=== PATIENT | male | born 1950 | race Caucasian/White ===

== ENCOUNTER → 2021-06-07 | Outpatient (CLI) | payer MEDICARE, OTHER, SELFPAY | END | disposition home or self-care (01) | LOC: PSN 09:12 | PROVIDERS: PCP Family Medicine; Referring Provider Family Medicine; Visit Provider Family Medicine | DX: R09.89 Other specified symptoms and signs involving the circulatory and respiratory systems (principal) | CPT/HCPCS: 93225; 93226 ==

== ENCOUNTER → 2021-06-30 | Outpatient (CLI) | payer MEDICARE, OTHER, SELFPAY ==
--- NOTE | 2021-06-30 10:45 | ECHOD_ITS ---
Reason For Study: ARRYTHMIA Procedure This was a 2D Doppler, Color Flow transthoracic echocardiogram. Exam performed in department. Left Ventricle Normal LV size. Left ventricular systolic function is normal. The estimated ejection fraction is 60 %. Stage 1 diastolic dysfunction. No regional wall motion abnormalities noted. Right Ventricle Normal RV size. Normal systolic function. Atria The left atrium is moderately enlarged. Normal right atrium. Mitral Valve Normal mitral valve. Tricuspid Valve Normal tricuspid valve. Mild (1+) tricuspid valve insufficiency. Pulmonary artery systolic pressure is 38 mmHg. Aortic Valve Normal aortic valve. Trisinus/trileaflet aortic valve. Pulmonic Valve Normal pulmonic valve. Great Vessels Normal aortic root. Pericardium/Pleural No pericardial effusion. MMode/2D Measurements & Calculations LVIDd: 5.1 cm IVSd: 0.91 cm Ao root diam: 3.5 cm LVIDs: 2.4 cm LVPWd: 1.0 cm RVDd: 4.0 cm FS: 52.8 % LAV(MOD-bp): 73.4 ml LVAd ap4: 33.5 cm2 SV(MOD-sp4): 76.6 ml LAV(MOD-bp) Indexed: 36.0 ml/m2 LVLd ap4: 8.3 cm LAV(MOD-sp2): 71.5 ml EDV(MOD-sp4): 111.6 ml LAV(MOD-sp4): 81.0 ml EDV(sp4-el): 114.6 ml LVAs ap4: 15.3 cm2 LVLs ap4: 5.5 cm ESV(MOD-sp4): 35.0 ml ESV(sp4-el): 36.0 ml EF(MOD-sp4): 68.6 % EF(sp4-el): 68.6 % SV(sp4-el): 78.5 ml LA A4 area: 24.2 cm2 RA A4 area: 17.5 cm2 Doppler Measurements & Calculations MV E max roger: 57.7 cm/sec Lat Peak E' Roger: 6.5 cm/sec Med Peak E' Roger: 6.5 cm/sec MV A max roger: 88.1 cm/sec E/E' lat: 8.9 E/E' med: 8.9 MV E/A: 0.65 Ao V2 max: 118.4 cm/sec LV V1 max: 80.1 cm/sec PA V2 max: 89.6 cm/sec Ao max P.6 mmHg LV V1 max P.6 mmHg TR max roger: 293.6 cm/sec TR max P.5 mmHg ECHO/Echo Complete Interpretation Summary Normal LV size. Left ventricular systolic function is normal. The estimated ejection fraction is 60 %. Normal RV size. Pulmonary artery systolic pressure is 38 mmHg. Stage 1 diastolic dysfunction. The left atrium is moderately enlarged. Ordering Physician: Arnaud Morrow Referring Physician: Arnaud Morrow Performed By: Jenise Reyes RCS
== END | disposition home or self-care (01) ==
LOC: CVS 10:43
PROVIDERS: PCP Family Medicine; Referring Provider Internal Medicine Cardiovascular Disease; Visit Provider Internal Medicine Cardiovascular Disease
DX: I49.1 Atrial premature depolarization (principal)
CPT/HCPCS: 93306

== ENCOUNTER → 2023-01-18 | Outpatient (CLI) | payer MEDICARE, OTHER, SELFPAY ==
[2023-01-18 12:41] LABS: Absolute Lymphocyte Count 1.63 X10^3/uL (0.83-4.51); Absolute Neutrophil Count 5.3 X10^3/uL (2.0-7.7); Basophil# 0.06 X10^3/uL; Basophil% 0.8 % (0-1); Eosinophil# 0.22 X10^3/uL; Eosinophils% 2.8 % (0-5); Hematocrit 41.1 % (40-54); Hemoglobin 13.3 g/dL (13.0-16.5); Lymphocyte # 1.63 X10^3/ul (0.83-4.51); Mean Corp Hgb Conc 32.4 g/dL (32-36); Mean Corpuscular Hgb 29.5 pg (27.0-32.0); Mean Corpuscular Volume 91.1 fL (80-94); Mean Platelet Vol. 10.5 fl (6.2-12.0); Monocyte# 0.52 X10^3/uL; Monocyte% 6.7 % (0-10); NRBC Flagged by Analyzer 0 % (0-5); Neutrophil # 5.33 X10^3/uL (2.7-7.7); Neutrophil % 68.4 % (47-70); Platelet Count 236 K/mm3 (150-450); RBC Distribution Width CV 12.6 % (11.6-14.6); RBC Distribution Width SD 41.7 fl (35.1-43.9); Red Blood Count 4.51 M/mm3 (4.6-6.2); White Blood Count 7.8 K/mm3 (4.4-11.0)
[2023-01-18 13:21] LABS: AST(SGOT) 20 U/L (15-37); Alanine Aminotransfer ALT/SGPT 25 U/L (16-61); Albumin, Serum 3.8 g/dL (3.2-5.0); Alkaline Phosphatase 78 U/L (45-117); Anion Gap 4 (5-15); BUN 10 mg/dL (7-18); BUN/Creat Ratio 13.4 RATIO (10-20); Calcium,Total 8.9 mg/dL (8.5-10.1); Chloride 105 mmol/L (98-107); Cholesterol 106 mg/dL (200); Creatinine, Serum 0.75 mg/dL (0.70-1.30); EST Glomerular Filtration Rate 109 mL/min (>60); Est Glom Filt Rate - Afr Amer 132 mL/min (>60); Glucose 98 mg/dL (74-106); High Density Lipoprotein 62 mg/dL; PSA,Total - Annual Screen 1.73 ng/mL (0.00-4.00); Potassium 4.8 mmol/L (3.5-5.1); Protein, Total 7.8 g/dL (6.4-8.2); Sodium Level 138 mmol/L (136-145); Triglycerides 54 mg/dL; Very Low Density Lipoprotein 11 mg/dL (5-40)
== END | disposition home or self-care (01) ==
LOC: BFHLAB 09:44
PROVIDERS: PCP Family Medicine; Visit Provider Family Medicine
DX: I48.91 Unspecified atrial fibrillation (principal); I10 Essential (primary) hypertension; E78.5 Hyperlipidemia, unspecified; Z12.5 Encounter for screening for malignant neoplasm of prostate; Z51.81 Encounter for therapeutic drug level monitoring
CPT/HCPCS: 36415; 80053; 80061; 84153; 85025; G0103

== ENCOUNTER → 2024-01-20 | Outpatient (CLI) | payer MEDICARE, OTHER, SELFPAY ==
[2024-01-20 12:25] LABS: Absolute Lymphocyte Count 1.48 X10^3/uL (0.83-4.51); Absolute Neutrophil Count 2.6 X10^3/uL (2.0-7.7); Basophil# 0.07 X10^3/uL; Basophil% 1.5 % (0-1); Eosinophil# 0.14 X10^3/uL; Hematocrit 42.5 % (40-54); Hemoglobin 13.8 g/dL (13.0-16.5); Lymphocyte # 1.48 X10^3/ul (0.83-4.51); Lymphocyte % 31.8 % (19-41); Mean Corp Hgb Conc 32.5 g/dL (32-36); Mean Corpuscular Hgb 29.9 pg (27.0-32.0); Monocyte# 0.41 X10^3/uL; Monocyte% 8.8 % (0-10); NRBC Flagged by Analyzer 0 % (0-5); Neutrophil # 2.55 X10^3/uL (2.7-7.7); Neutrophil % 54.7 % (47-70); Platelet Count 229 K/mm3 (150-450); RBC Distribution Width CV 12.1 % (11.6-14.6); RBC Distribution Width SD 41.1 fl (35.1-43.9); Red Blood Count 4.62 M/mm3 (4.6-6.2); White Blood Count 4.7 K/mm3 (4.4-11.0)
[2024-01-20 12:51] LABS: AST(SGOT) 19 U/L (15-37); Alanine Aminotransfer ALT/SGPT 23 U/L (16-61); Albumin, Serum 3.9 g/dL (3.2-5.0); Alkaline Phosphatase 79 U/L (45-117); Anion Gap 4 (5-15); BUN 13 mg/dL (7-18); BUN/Creat Ratio 16.4 RATIO (10-20); Calcium,Total 9.6 mg/dL (8.5-10.1); Chloride 104 mmol/L (98-107); Cholesterol 115 mg/dL (200); Creatinine, Serum 0.79 mg/dL (0.70-1.30); EST Glomerular Filtration Rate 101 mL/min (>60); Est Glom Filt Rate - Afr Amer 123 mL/min (>60); Globulin 3.8 g/dL (2.2-4.2); Glucose 119 mg/dL (74-106); High Density Lipoprotein 62 mg/dL; PSA,Total - Annual Screen 1.42 ng/mL (0.00-4.00); Potassium 3.9 mmol/L (3.5-5.1); Protein, Total 7.7 g/dL (6.4-8.2); Sodium Level 139 mmol/L (136-145); Triglycerides 48 mg/dL; Very Low Density Lipoprotein 10 mg/dL (5-40)
== END | disposition home or self-care (01) ==
PROVIDERS: PCP Family Medicine; Referring Provider Family Medicine; Visit Provider Family Medicine
DX: Z12.5 Encounter for screening for malignant neoplasm of prostate (principal); I48.91 Unspecified atrial fibrillation; I10 Essential (primary) hypertension; E78.5 Hyperlipidemia, unspecified
CPT/HCPCS: 36415; 80053; 80061; 84153; 85025; G0103

== ENCOUNTER 2024-09-19 12:26 | Emergency (ER) | payer MEDICARE, OTHER, SELFPAY ==
[2024-09-19 12:27] VITALS: BP 129/79; PULSE 97; RESP 13; TEMP 36.9; O2SAT 90; BMI 24.4
[2024-09-19 12:35] VITALS: O2SAT 92; O2SAT 93
--- NOTE | 2024-09-19 12:39 | EKG12_ITS ---
Test Reason : CP Blood Pressure : */* mmHG Vent. Rate : 92 BPM Atrial Rate : 92 BPM P-R Int : 132 ms QRS Dur : 80 ms QT Int : 358 ms P-R-T Axes : 11 0 39 degrees QTcB Int : 442 ms Sinus rhythm with Premature atrial complexes Possible Left atrial enlargement Cannot rule out Inferior infarct , age undetermined Abnormal ECG Confirmed by ARYA HURLEY, DIGNA ([id number]), food editor KIRSTEN CHIN ([id number]) on 09/21/2024 1:11:03 PM Referred By: Confirmed By: DIGNA KOENIG MD
--- NOTE | 2024-09-19 12:39 | RAD_ITS ---
PROCEDURE: CHEST 1 VIEW (PORTABLE) 09/19/2024 REASON FOR EXAM: CHEST PAIN TECHNIQUE: Frontal view of the chest. COMPARISON: None FINDINGS: Hardware: EKG leads Heart: Top-normal size. Aorta is mildly tortuous. Lungs: Platelike atelectasis right lung base. Atelectasis or airspace disease in the lingula and left lower lobe. Scant pleural fluid on the left. Bones: Degenerative changes are identified within the thoracic spine. RAD/Chest 1 View (Portable) IMPRESSION: Atelectasis or airspace disease left lower lobe. Consider pneumonia in the enzo ropriate scenario. Reading Location: [id number]
--- NOTE | 2024-09-19 12:47 | ED.VIS.CHEST ---
HPI History of Present Illness Chief Complaint: Chest Pain Informant: patient Onset/Context/Timing Onset: Today Activity at onset: sudden Timing: Continuous Quality: Positive for Sharp Location: Left Chest Current Severity: Moderate Maximum Severity: Severe Worsened By: Breathing Relieved By: Nothing Associated Symptoms: Positive for Dyspnea; Negative for Nausea, Vomiting, Diaphoresis, Cough, Fever, Lightheadedness, Acid Reflux or Palpitations Narrative Narrative: 74-year-old male with past medical history of A-fib, hypertension and Viveros's esophagitis. Typically is on Eliquis it has been stopped since Saturday due to an upcoming endoscopy. No prior history of DVT or PE. No prior ME, coronary disease or stents. States he was at home he was at rest about hour ago he had sudden onset of left-sided chest pain. Associated shortness of breath. No diaphoresis no nausea. No leg pain or swelling. No hemoptysis. No recent travel, surgery or immobilization. No having the pain currently. Was brought in by squad. He was given aspirin and nitro and nitro would not give him any significant relief. Prior Similar Symptoms: No Recent Illness/Hospitalization: No CVD Risk Factors: Positive for Hypertension; Negative for Diabetes PE Risk Factors: Negative for Recent Travel/Surgery, Recent Immobilization, Prior DVT or PE, Cancer or OCP + Smoking + >/=35 TAD Risk Factors: Negative for Marfan's Syndrome [facility] Medical History Atrial fibrillation Premature atrial contractions Hyperlipidemia Essential hypertension Ventral incisional hernia Arthritis Home Medications ?Medication ?Instructions ?Recorded ?Last Taken ?Type ezetimibe 10 mg-simvastatin 20 mg 1 tab PO DAILY 02/18/14 Unknown History tablet amlodipine 10 mg tablet 10 mg PO DAILY 06/27/21 Unknown History cyanocobalamin (vitamin B-12) 500 500 mcg PO DAILY 06/27/21 Unknown History mcg tablet ammonium lactate 12 % topical cream 1 applic topical DAILY 01/28/23 Unknown History omeprazole 40 mg capsule,delayed 40 mg PO BID 01/28/23 Unknown History release sucralfate 1 gram tablet 1 g PO QACHS 01/28/23 Unknown History apixaban 5 mg tablet (Eliquis) 5 mg PO BID [facility]ing [facility] 06/09/24 09/16/24 Rx [facility] tabs Allergy/AdvReac Type Severity Reaction Status Date / Time No Known Allergies Allergy Verified 09/19/24 12:27 Family History Father Heart disease Surgical History Viveros esophagus (12/2022) History of ventral hernia repair History of Eva fundoplication History of hernia surgery (~09/2021) Social History Smoking Status: Never smoker alcohol intake: current alcohol intake frequency: a few times a week substance use type: does not use caffeine: Yes Type: coffee Number of servings: 2 ROS ROS ED ROS Narrative Denies recent illness. Denies recent exertional chest pain. Denies recent exertional dyspnea. No falls or chest wall trauma. Constitutional Constitutional ED: Denies chills or fever(s) Eyes Eyes: Reports none ENT ENT ED: Denies ear pain Cardiovascular Cardiovascular: Reports chest pain; Denies palpitations or racing heartbeat Respiratory/Chest Respiratory/Chest: Reports dyspnea Gastrointestinal Gastrointestinal: Denies abdominal pain Genitourinary Genitourinary ED: Denies dysuria or hematuria Musculoskeletal Musculoskeletal: Denies arthralgias or back pain Integumentary Denies abscess Neurologic Neurologic: Denies headache(s) Psychiatric Psychiatric: Denies anxiety Endocrine Endocrinology: Denies cold intolerance Hematologic/Lymphatic Hematologic/Lymphatic: Denies easy bleeding or easy bruising Allergic/Immunologic Allergic/Immunologic ED: Denies mouth swelling, tongue swelling or urticaria EXAM Physical Exam Narrative Exam Narrative: 73-year-old male sitting upright in bed. Vital signs are stable he does have a pulse ox in the 90% on room air borderline hypoxic. Family is at bedside. H EENT exam pupils round react light. Extra motions are intact. Neck is nontender JVD. No lymphadenopathy. Lungs clear to auscultation bilaterally. Heart regular rhythm rate about 90 no murmur. Chest wall there is no reproducible tenderness no ecchymosis or bruising no subcu air. Abdomen soft nontender. Moving all 4 extremities. Calves are nontender no edema no cords. 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 Normal equal symmetrical radial pulses. Back nontender. Neurologically is awake alert. Answering questions following commands. Const Vital Signs: 09/19/24 12:27 09/19/24 12:32 09/19/24 12:35 Temperature 98.4 F Temperature Source Oral Pulse Rate 97 Respiratory Rate 13 Respiratory Effort Normal Non-Labored Blood Pressure 129/79 H Blood Pressure Mean 95 Pulse Ox 90 93 Oxygen Delivery Method Room Air Room Air Oxygen Flow Rate (L/min) 09/19/24 12:35 09/19/24 12:56 09/19/24 13:00 Temperature Temperature Source Pulse Rate 110 H Respiratory Rate 26 H Respiratory Effort Blood Pressure 156/69 H Blood Pressure Mean 94 Pulse Ox 92 100 Oxygen Delivery Method Nasal Cannula Nasal Cannula Oxygen Flow Rate (L/min) 2 2 09/19/24 14:00 09/19/24 15:00 Temperature Temperature Source Pulse Rate 96 89 Respiratory Rate 23 H 24 H Respiratory Effort Blood Pressure 147/81 H 113/72 Blood Pressure Mean 101 86 Pulse Ox 98 94 Oxygen Delivery Method Oxygen Flow Rate (L/min) Positive well nourished and well developed; Negative for obese, cachectic, contractures or unkempt General Appearance ED: well developed; Negative for unkempt, cachectic, contractures, NAD or pallor Nutritional Appearance: Negative for cachectic or obese HEENT Reports moist mucous membranes normocephalic and atraumatic Eyes PERRL and EOMs intact bilaterally Neck no lymphadenopathy, supple and no JVD Chest Wall inspection of chest normal and palpation of chest normal Resp normal respiratory effort and clear to auscultation bilaterally Auscultation: Negative for rales, rhonchi, wheezes or diminished lung sounds Cardio regular rate, regular rhythm, S1 normal heart sound, S2 normal heart sound and no murmurs Peripheral Pulses: pulses 2+ throughout GI normal to inspection, nondistended, normoactive bowel sounds, soft to palpation, non-tender, non-distended and no masses Back/Spine no CVA tenderness and no thoracic nor lumbar tenderness Extremity normal to inspection General Extremety ED: Negative for edema, pulses abnormal or tenderness General Extremity: Negative for edema or pulses abnormal Neuro oriented x3 and CN's II-XII intact bilaterally Sensorium / Orientation: awake, alert, oriented to person, oriented to place and oriented to time Motor Exam: strength 5/5 throughout Psych mental status grossly normal Appearance: Negative for unkempt Skin no rashes or lesions noted and no wounds General Skin Exam: Negative for jaundice or pallor Rashes: No rashes noted Trauma: Negative for abrasion, laceration or puncture Heart Score History: Slightly/Non-Suspicious ECG: Normal Age: >/= 65 years Risk Factors: 1 or 2 Risk Factors Troponin: </= Normal Limit Score: 3 MDM MDM MDM Narrative Medical decision making narrative: 74-year-old male chest pain at rest with no recent exertional symptoms. He is never had a DVT or PE but it is left-sided chest pain that is not reproducible and appears to be pleuritic. Undergoing cardiac workup. He is already received aspirin by squad and nitro nitro with limited no relief. He will be given morphine for pain and Zofran. D-dimer is being performed also for the possibility this being at PE. Clinically does not sound like a dissection he has no back pain. Otherwise he is medically stable. He will undergo a cardiac workup. Repeat exam patient was improved after receiving the morphine for his chest pain. He underwent a CTA and a says showed no signs of a PE but has a left pleural effusion. His cardiac workup was negative. Patient and I had his family discussed all his test results. He is feeling much better after the IV pain medication. We discussed follow-up for the pleural effusion. They are comfortable with him being discharged home with outpatient follow-up. His daughter works here as a neurology reliability technician. History & Record Review Discussion w/independent historian: Patient and Family Additional record(s) reviewed:: Prior inpatient record, Prior outpatient record, Prior ED visit and Prior labs Lab Data Attestation: I reviewed the patient's lab results. Lab results narrative: CBC shows a white count of 9 H&H 12.3 and 36. Platelets 380. Chest x-ray chronic changes. Normal cardiac silhouette. Normal mediastinum. Atelectasis left lower lung. CT of the chest shows no PE. Left pleural effusion. Cannot rule out a mass. Chemistries unremarkable gap 13. BUN and creatinine 11 and 0.7. Glucose 152. Initial troponin 11. 2-hour troponin 8. D-dimer was elevated 3.94. Labs: Laboratory Results - last 24 hr 09/19/24 09/19/24 09/19/24 12:31 13:05 14:52 WBC 9.8 RBC 4.15 L Hgb 12.3 L Hct 36.9 L MCV 88.9 MCH 29.6 MCHC 33.3 RDW Std Deviation 40.0 RDW Coeff of Dennis 12.3 Plt Count 380 MPV 9.2 Immature Gran % (Auto) 0.300 Neut % (Auto) 74.3 H Lymph % (Auto) 17.0 L Teller % (Auto) 5.9 Eos % (Auto) 2.1 Baso % (Auto) 0.4 Absolute Neuts (auto) 7.3 Absolute Lymphs (auto) 1.67 Nucleated RBC % 0 D-Dimer Quant (PE/DVT) 3.94 H* Sodium 136 Potassium 3.7 Chloride 100 Carbon Dioxide 23.3 Anion Gap 13 BUN 11 Creatinine 0.70 Estim Creat Clear Calc 86.28 Est GFR (MDRD) Non-Af 97 BUN/Creatinine Ratio 15.0 Glucose 152 H Calcium 9.1 Troponin T High Sens 11 Troponin T Hi Sens 2 Hr 8 Radiography Chest X-Ray - ED: 1 View, Read by ED Physician, Heart, Mediastinum, Bony Structures, Chronic Changes and - (Left lower lung atelectasis.) Diagnostic Testing: Clinical Impression(s) from Imaging Studies Chest X-Ray 09/19/24 12:39 IMPRESSION: Atelectasis or airspace disease left lower lobe. Consider pneumonia in the appropriate scenario. Reading Location: [facility] Chest CTA 09/19/24 13:38 IMPRESSION: 1. No pulmonary embolism is identified. Some of the distal pulmonary arteries cannot be evaluated due to suboptimal opacification. 2. Lung emphysema/COPD with left pleural effusion and associated compressive atelectasis. Nodular opacity in the left lower lobe measuring up to 5.0 cm. Mass can not be excluded. 3. Scattered mediastinal lymph nodes some of which are upper limits of normal in size and are most likely reactive lymph nodes. 4. Moderate esophageal hiatal hernia. Reading Location: [id number] Chest x-ray, portable, single view interpreted by myself shows normal cardiac silhouette. Normal aortic knob and mediastinum. Left lower lung appears to have atelectasis versus fluid like a pleural effusion. No obvious pneumonia. Rhythm Strip Rhythm Strip: Sinus Rhythm Rate: 92 Ectopy: None EKG Initial EKG: Attestation: I personally reviewed and interpreted this EKG as follows: Interpretation: Sinus Rhythm and No Acute Injury Pattern Comments: Normal sinus rhythm rate of 92 no acute signs of ME or ischemia. Discharge Plan Triage Chief Complaint: Chest Pain ED Provider: Candido Rivera Dx/Rx/DC Orders Clinical Impression: Chest pain, Pleural effusion on left, History of Viveros esophagus, History of atrial fibrillation Instructions: ED Chest Pain, Uncertain Cause Prescriptions: No Action amlodipine 10 mg tablet 10 mg PO DAILY cyanocobalamin (vitamin B-12) 500 mcg tablet 500 mcg PO DAILY sucralfate 1 gram tablet 1 g PO QACHS omeprazole 40 mg capsule,delayed release(DR/EC) 40 mg PO BID ammonium lactate 12 % cream 1 applic topical DAILY ezetimibe-simvastatin 1 TABLET tablet 1 tab PO DAILY Patient Comments: CHOLESTEROL Eliquis 5 mg tablet 5 mg PO BID Qty: 180 3RF Primary Care Provider: Jon Aguilar Referrals: Han Schumacher DO [Med Staff - Active Staff] - As soon as possible (Call his office this Saturday to get an appointment. Tell them you have a left pleural effusion that needs further evaluation.) oJn Aguilar DO [Primary Care Provider] - Activity Restrictions/Additional Instructions: Not specifically sure what caused the chest pain. It could be from esophageal spasm but there is no way to diagnose that in the ER. It could be from the pleural effusion the fluid that is along the left side of your lung. There is no signs of a heart attack. No signs of a blood clot. Call and follow-up with Dr. Schumacher regarding further evaluation of the left pleural effusion. Continue your reflux medication. Return to the emergency department if you are feeling worse. Print Language: Amharic Disposition Disposition: Home, Self Care
[2024-09-19 12:59] LABS: Hematocrit 36.9 % (40-54); Hemoglobin 12.3 g/dL (13.0-16.5); Immature Granulocytes Count 0.030 X10^3/uL (0.0-0.0); Mean Corp Hgb Conc 33.3 g/dL (32-36); Mean Corpuscular Volume 88.9 fL (80-94); Mean Platelet Vol. 9.2 fl (6.2-12.0); NRBC Flagged by Analyzer 0 % (0-5); Platelet Count 380 K/mm3 (150-450); RBC Distribution Width CV 12.3 % (11.6-14.6); RBC Distribution Width SD 40.0 fl (35.1-43.9); Red Blood Count 4.15 M/mm3 (4.6-6.2); White Blood Count 9.8 K/mm3 (4.4-11.0)
[2024-09-19 13:00] VITALS: BP 156/69; PULSE 110; RESP 26; O2SAT 100
--- OUTSIDE RECORDS SUMMARY | 2024-09-19 13:12 | XMS RPT_ITS | CCD ---
Author Organization [facility] Care Team Providers Care Manager Law Name Role Phone Arabella Oden Attending Unavailable Self Referral, Patient Referring Unavailab Dago Weaver Primary Care Unavailable Arabella Oden Admitting Unavailable Lb Lyle Admitting Unavailable Lb Lyle Attending Unavailable Dago Mcnamara Primary Care Unavailable Dago Mcnamara Primary Care Provider Dago Mcnamara Unavailable Dago Mcnamara MD Primary Care Provider [phone] Dago Mcnamara MD Unavailable Dago Mcnamara MD Unavailable Dr. Dago Mcnamara Primary Care Provider Dr. Dago Mcnamara Referring Provider [phone] Dr. Arnaud Morrow Attending Provider Dago Mcnamara MD Primary Care Provider Dago Mcnamara MD Unavailable ALVIN OCHOA Referring Unavailable ALVIN OCHOA Admitting Unavailable DAGO MCNAMARA Primary Care Unavailable Dago Mcnamara MD Primary Care Provider Dago Mcnamara MD Unavailable Emanuel Aguilar Primary Care Unavailable Adolfo Garcia Attending Unavailable Emanuel Aguilar Referring Unavailable Emanuel Aguilar Referring Unavailable Emanuel Aguilar Attending Unavailable Emanuel Aguilar Primary Care Unavailable Emanuel Aguilar DO Primary Care Provider DAGO MCNAMARA Primary Care Unavailable ABBE WOOD Attending Unavailable ABBE WOOD Attending Unavailable DAGO MCNAMARA Primary Care Unavailable ABBE WOOD Attending Unavailable DAGO MCNAMARA Primary Care Unavailable DWAYNE, ABBE FOY Attending Unavailable EMANUEL AGUILAR Primary Care Unavailable ABBE WOOD Attending Unavailable ABBE WOOD Admitting Unavailable DAGO MCNAMARA Primary Care Unavailable ABBE WOOD Attending Unavailable ABBE WOOD Admitting Unavailable DAGO MCNAMARA Primary Care Unavailable ABBE WOOD Attending Unavailable ABBE WOOD Admitting Unavailable DAGO MCNAMARA Primary Care Unavailable ABBE WOOD Attending Unavailable EMANUEL AGUILAR Primary Care Unavailable ABBE WOOD Admitting Unavailable Medications Current Medications Medication Drug Class(es) Dates Sig (Normalized) Sig (Original) amLODIPine 10 mg oral tablet (20 sources) Dihydropyridine Calcium Channel Nathan Start: 04-05-2020 End: 04-05-2020 take 10 mg by mouth once daily 10 mg, Oral, Daily, First dose on Sat04/05/20 at 0900 Start: 12-14-2019 take 1 tablet by anette th once daily in the morning amLODIPine (NORVASC) 10 MG tablet Take 1 (one) tablet (10 mg total) by mouth every morning . 12/14/2019 Active apixaban 5 mg oral tablet (19 sources) Factor Xa Inhibitor Start: 01-12-2022 Eliquis 5 mg Tab 01/12/2022 Active Start: 12-15-2021 End: 12-15-2021 take 1 tablet by mouth twice daily Apixaban (Eliquis) 5 mg tablet Discontinued 5 MG PO TWICE A DAY 60 December 14, 2021 11:00pm December 15, 2021 3:16pm cholecalciferol 0.025 mg oral capsule (20 sources) Vitamin D Start: 06-27-2021 take 25 ug by mouth once daily Cholecalciferol (Vitamin D3) Active 25 MCG PO DAILY June 27, 2021 9:43pm take 1 tablet by naette th once daily in the morning cholecalciferol, vitamin D3, 1,000 unit tablet Take 1 (one) tablet (1,000 Units total) by mouth every morning . Active ezetimibe 10 mg / simvastatin 20 mg oral tablet (20 sources) HMG-CoA Reductase Inhibitor, Dietary Cholesterol Absorption Inhibitor Start: 02-18-2014 take 1 tablet by mouth once daily Ezetimibe-Simvastatin Active 1 TABLET PO DAILY February 18, 2014 11:30am Start: 02-12-2014 take 1 tablet by anette th once daily at bedtime ezetimibe-simvastatin (VYTORIN) 10-20 mg per tablet Take 1 (one) tablet by mouth every night at bedtime . 02/12/2014 Active omeprazole 40 mg delayed release oral capsule (20 sources) Proton Pump Inhibitor Start: 06-20-2022 End: 01-13-2024 take 1 capsule by mouth twice daily omeprazole (PRILOSEC) 40 MG capsule Take 1 (one) capsule (40 mg total) by mouth 2 (two) times a day . 180 capsule 3 01/13/2024 Active Start: 06-27-2021 End: 12-15-2021 take 40 mg by mouth once daily Omeprazole Discontinued 40 MG PO DAILY June 26, 2021 11:00pm December 15, 2021 1:59pm Start: 12-15-2020 End: 05-09-2021 take 1 capsule by mouth once daily omeprazole (PRILOSEC) 40 MG capsule Take 1 (one) capsule (40 mg total) by mouth daily . 90 capsule 2 02/08/2021 Active sucralfate 100 mg/ml oral suspension (20 sources) Aluminum Complex Start: 06-16-2024 take 10 mL by mouth four times daily sucralfate (Carafate) 100 mg/mL suspension Take 10 mL (1 g total) by mouth 4 (four) times a day . 400 mL 2 06/16/2024 Active Start: 04-14-2024 End: 05-14-2024 take 10 mL by mouth four times daily sucralfate (Carafate) 100 mg/mL suspension Take 10 mL (1 g total) by mouth 4 (four) times a day . 400 mL 2 04/14/2024 Active Start: 01-08-2023 End: 01-13-2024 take 10 mL by mouth four times daily sucralfate (Carafate) 100 mg/mL suspension Take 10 mL (1 g total) by mouth 4 (four) times a day . 400 mL 2 09/24/2023 01/13/2024 Discontinued Start: 07-31-2022 End: 11-19-2022 take 10 mL by mouth four times daily sucralfate (Carafate) 100 mg/mL suspension Take 10 mL (1 g total) by mouth 4 (four) times a day . 400 mL 2 10/16/2022 11/19/2022 Discontinued Start: 06-20-2022 End: 01-13-2024 take 1 tablet by mouth four times daily before mealtime sucralfate (CARAFATE) 1 gram tablet Take 1 (one) tablet (1 g total) by mouth 4 (four) times a day before meals . 360 tablet 3 01/13/2024 Active Start: 12-14-2021 End: 02-07-2022 take 10 mL by mouth four times daily sucralfate (Carafate) 100 mg/mL suspension Take 10 mL (1 g total) by mouth 4 (four) times a day . 400 mL 2 12/14/2021 02/07/2022 Discontinued (Therapy completed) Start: 05-01-2021 End: 10-24-2021 take 10 mL by mouth four times daily sucralfate (Carafate) 100 mg/mL suspension Take 10 mL (1 g total) by mouth 4 (four) times a day . 400 mL 2 07/18/2021 10/24/2021 Discontinued (Therapy completed) Start: 01-02-2021 End: 02-08-2021 take 10 mL by mouth four times daily sucralfate (Carafate) 100 mg/mL suspension Take 10 mL (1 g total) by mouth 4 (four) times a day . 400 mL 2 01/02/2021 02/08/2021 Discontinued (Therapy completed) vitamin b12 0.5 mg oral tablet (20 sources) Vitamin B12 Start: 06-27-2021 take 500 ug by mouth once daily Cyanocobalamin (Vitamin B-12) Active 500 MCG PO DAILY June 27, 2021 9:42pm take 1 tablet by anette th once daily in the morning cyanocobalamin, vitamin B-12, 2,000 mcg Tab Take 1 (one) tablet (2,000 mcg total) by mouth every morning . Active Completed/Discontinued Medications Medication Drug Class(es) Dates Sig (Normalized) Sig (Original) acetaminophen 325 mg oral tablet (1 source) Start: 04-04-2020 End: 04-05-2020 take 1 tablet by mouth every six hours as needed 650 mg, Oral, Every 6 hours PRN, mild pain, headaches, Starting 04/04/20 at 1813 Do not exceed max of 4000 mg acetaminophen in 24 hours. acetaminophen 24 mg/ml / codeine phosphate 2.4 mg/ml oral solution (4 sources) Opioid Agonist Start: 07-31-2022 End: 08-03-2022 take 5-10 mL by mouth every six hours as needed for pain acetaminophen-codei ne (TYLENOL w/CODEINE) 120-12 mg/5 mL Soln Indications: Viveros's esophagus with dysplasia Take 5-10 mL by mouth every 6 (six) hours as needed (esophageal pain) . 120 mL 0 07/31/2022 08/03/2022 Start: 07-18-2021 End: 07-21-2021 take 5-10 mL by mouth every four hours as needed acetaminophen-codeine (TYLENOL w/CODEINE ) 120-12 mg/5 mL Soln Indications: Slipped Santos fundoplication , History of Viveros's esophagus Take 5-10 mL by mouth every 4 (four) hours as needed . 180 mL 0 07/18/2021 07/21/2021 Active Start: 01-02-2021 End: 01-12-2021 take 5 mL by mouth every six hours as needed acetaminophen-codeine (TYLENOL w/CODEINE ) 120 mg-12 mg /5 mL (5 mL) Soln Indications: Viveros's esophagus with dysplasia Take 5 mL by mouth every 6 (six) hours as needed . 100 mL 0 01/02/2021 01/12/2021 Active acetaminophen 325 mg / HYDROcodone bitartrate 5 mg oral tablet (3 sources) Opioid Agonist Start: 01-31-2017 End: 06-27-2021 take 1 tablet by mouth every four hours as needed Hydrocodone-Acetaminophen Discontinued 1 TABLET PO EVERY 4 HOURS NEEDED January 31, 2017 8:56am June 27, 2021 9:41pm calcium chloride 0.0014 meq/ml / potassium chloride 0.004 meq/ml / sodium chloride 0.103 meq/ml / sodium lactate 0.028 meq/ml injectable solution (2 sources) Start: 04-04-2020 End: 04-05-2020 take 75 mL intravenous route every hour 75 mL/hr, Intravenous, Continuous, Starting Sat04/04/20 at 1900 Start: 04-04-2020 End: 04-04-2020 lactated Ringers infusion 0.4 ml enoxaparin sodium 100 mg/ml prefilled syringe (2 sources) Low Molecular Weight Heparin Start: 04-04-2020 End: 04-05-2020 inject 40 mg by subcutaneous injection once daily 40 mg, Subcutaneous, Daily, First dose on Sat04/05/20 at 0800 Administer in abdomen unless otherwise directed by prescriber. Notify physician if patient refuses. Indication: VTE Prophylaxis ezetimibe (ZETIA) 10 mg, simvastatin (ZOCOR) 20 mg for VYTORIN 11/30 (1 source) Start: 04-04-2020 End: 04-05-2020 take 1 dose by mouth once daily Oral, Nightly, First dose on Sat04/04/20 at 2100 hydroCHLOROthiazide 25 mg oral tablet (7 sources) Thiazide Diuretic Start: 02-18-2014 End: 06-27-2021 take 12.5 mg by mouth once daily Hydrochlorothiazide Discontinued 12.5 MG PO DAILY February 18, 2014 11:30am June 27, 2021 9:41pm Start: 02-12-2014 End: 03-21-2020 take 1 capsule by mouth once daily hydroCHLOROthiazide (MICROZIDE) 12.5 mg capsule Take 12.5 mg by mouth daily . 0 02/12/2014 03/21/2020 Discontinued 1 ml HYDROmorphone hydrochloride 1 mg/ml injection (1 source) Opioid Agonist Start: 04-04-2020 End: 04-04-2020 0.5 mg, Intravenous, Every 5 min PRN, Pain, Starting Sat04/04/20 at 1356, For 6 doses, PACU (only) [] Give if fentanyl not effective or not ordered. [] Do not give more than 3 mg total. ibuprofen 600 mg oral tablet (1 source) Nonsteroidal Anti-inflammatory Drug Start: 04-04-2020 End: 04-05-2020 take 1 tablet by mouth every six hours as needed 600 mg, Oral, Every 6 hours PRN, headaches, Starting Sat04/04/20 at 1813 Give with Food Do Not Crush or Chew if administering orally due to bitter taste. May be crushed if given via tube. 1 ml ketorolac tromethamine 30 mg/ml injection (1 source) Nonsteroidal Anti-inflammatory Drug, Cyclooxygenase Inhibitor Start: 04-04-2020 End: 04-04-2020 ketorolac (TORADOL) injection 30 mg Start: 04-04-2020 End: 04-04-2020 ketorolac (TORADOL) injectio n 30 mg magic mouthwash susp equal parts viscous lidocaine 2%, diphenhydramine 12.5mg/5mL, maalox [id number]/5mL (3 sources) Start: 07-31-2022 End: 08-10-2022 take 15 mL by mouth every four hours as needed magic mouthwash susp equal parts viscous lidocaine 2%, diphenhydramine 12.5mg/5mL, maalox [id number]/5mL Swish and spit 15 mL every 4 (four) hours as needed . 300 mL 0 07/31/2022 08/10/2022 Start: 07-18-2021 End: 07-28-2021 take 15 mL by mouth every four hours as needed magic mouthwash susp equal parts viscous lidocaine 2%, diphenhydramine 12.5mg/5mL, maalox [id number]-[id number]/5mL Swish and spit 15 mL every 4 (four) hours as needed . 300 mL 0 07/18/2021 07/28/2021 Active Start: 01-02-2021 End: 01-12-2021 magic mouthwash susp equal p arts viscous lidocaine 2%, diphenhydramine 12.5mg/5mL, maalox [id number]/5mL Swish and spit 15 mL every 4 (four) hours as needed . 300 mL 0 01/02/2021 01/12/2021 Active naloxone (NARCAN) injection 0.1 mg (1 source) Start: 04-04-2020 End: 04-05-2020 naloxone (NARCAN) injection 0.1 mg 2 ml ondansetron 2 mg/ml injection (1 source) Serotonin-3 Receptor Antagonist Start: 04-04-2020 End: 04-05-2020 take 4 mg intravenous route every six hours as needed 4 mg, Intravenous, Every 6 hours PRN, nausea, vomiting, Starting 04/04/20 at 1813 pantoprazole 40 mg delayed release oral tablet (9 sources) Proton Pump Inhibitor Start: 12-18-2019 End: 04-04-2020 take 1 tablet by mouth once daily pantoprazole (PROTONIX) 40 MG tablet Take 40 mg by mouth daily . 0 12/18/2019 04/04/2020 Discontinued Start: 01-29-2017 End: 06-27-2021 take 40 mg by mouth twice daily Pantoprazole Discontinued 40 MG PO TWICE A DAY January 29, 2017 11:08am June 27, 2021 9:41pm rivaroxaban 20 mg oral tablet (2 sources) Factor Xa Inhibitor Start: 01-12-2022 End: 01-12-2022 take 1 tablet by mouth once daily at dinner Rivaroxaban (Xarelto) 20 mg tablet Discontinued 20 MG PO DAILY January 12, 2022 4:18pm January 12, 2022 4:35pm must administer with evening meal Start: 12-15-2021 End: 12-15-2021 take 1 tablet by mouth once daily at dinner Rivaroxaban (Xarelto) 20 mg tablet Discontinued 20 MG PO DAILY December 14, 2021 11:00pm December 15, 2021 3:16pm must administer with evening meal Problems Active Problems Problem Classification Problem Date Documented Da te Episodic/Chronic Cardiac dysrhythmias (5 sources) Irregular heart beat; Translations: [Cardiac arrhythmia, unspecified] 06-27-2021 Chronic Complications of surgical procedures or medical care (20 sources) Complication of anesthesia; Translations: [Other complications of anesthesia, initial encounter] Onset: 03-21-2020 03-21-2020 Episodic Disorders of lipid metabolism (20 sources) Hyperlipidemia; Translations: [Hyperlipidemia, unspecified] Onset: 03-21-2020 03-21-2020 Chronic Esophageal disorders (20 sources) Viveros's esophagus; Translations: [Gastroesophageal reflux disease] Onset: 01-05-2020 01-05-2020 Chronic Essential hypertension (20 sources) Hypertensive disorder; Translations: [Essential (primary) hypertension] Onset: 03-21-2020 03-21-2020 Chronic Other aftercare (2 sources) Surgical follow-up; Translations: [Encounter for surgical aftercare following surgery on the digestive system] Episodic Other gastrointestinal disorders (2 sources) Personal history of other diseases of the digestive system; Translations: [Personal history of other diseases of the digestive system] Onset: 12-15-2020 Episodic Other screening for suspected conditions (not mental disorders or infectious disease) (1 source) Encounter for screening for malignant neoplasm of prostate; Translations: [Encounter for screening for malignant neoplasm of prostate] Onset: 02-21-2024 Episodic Residual codes; unclassified (20 sources) History of fundoplication; Translations: [Other specified postprocedural states] Onset: 10-21-2020 Episodic Residual codes; unclassified (4 sources) Other specified postprocedural states; Translations: [Other specified postprocedural states] Onset: 04-29-2024 Episodic Unclassified (1 source) Patient encounter status; Translations: [Elective surgery] Unclassified (4 sources) Preprocedural examination done; Translations: [Pre-op examination] Onset: 03-21-2020 03-21-2020 Past or Other Problems Problem Classification Problem Date Documented Date Episodic/Chronic Abdominal hernia (20 sources) Paraesophageal hernia; Translations: [Diaphragmatic hernia without obstruction or gangrene] Onset: 0 01-05-2020 Episodic Other gastrointestinal disorders (20 sources) Heartburn; Translations: [Heartburn] Onset: 0 01-05-2020 Episodic Other gastrointestinal disorders (20 sources) Dysphagia; Translations: [Dysphagia, pharyngoesophageal phase] Onset: 0 01-05-2020 Episodic Other gastrointestinal disorders (20 sources) Abdominal bloating; Translations: [Abdominal distension (gaseous)] Onset: 0 01-05-2020 Episodic Other gastrointestinal disorders (20 sources) History of Viveros's esophagus; Translations: [Personal history of other diseases of the digestive system] Onset: Episodic Residual codes; unclassified (20 sources) Patient encounter status; Translations: [Encounter for procedure for purposes other than remedying health state, unspecified] Onset: 1 Episodic Results Test Name Value Interpretation Reference Range Facility Cardiology Visit Reporton Cardiology Visit Report [facility] [address] [place] [address] OFFICE VISIT Date of Service: 04/21/24 MR#: [id number] Acct: [id number] Name: ARY FRODE Rep #: [id number] : 1950 Provider: NICOLE Bahena Age/Sex: 74/M Location: [facility] Status: Signed HPI HPI History of Present Illness Details: Ary Forde is a 72-year-old male who presents to office today for follow-up for monitoring cardiovascular disease. Patient has a history of atrial fibrillation that was initially noted on preoperative EKG. Patient with a history of hypertension and hyperlipidemia. Since last seen, approximately 15 months ago, patient reports doing well. Patient has no complaints of any symptoms. 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 Further negative ROS below. 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 Is patient in pain?: No Allergies No Known Allergies Allergy (Verified 04/21/24 08:41) Medications ???Medication ???Instructions ???Recorded ???Confirmed ???Type ezetimibe 10 mg-simvastatin 20 mg 1 tab PO DAILY 02/18/14 04/21/24 History tablet amlodipine 10 mg tablet 10 mg PO DAILY 06/27/21 04/21/24 H istory cyanocobalamin (vitamin B-12) 500 500 mcg PO DAILY 06/27/21 5 History mcg tablet ammonium lactate 12 % topical cream applic topical 01/28/23 5 History omeprazole 40 mg capsule,delayed 40 mg PO BID 01/28/23 04/21/24 His tory release sucralfate 1 gram tablet 1 g PO QACHS 01/28/23 04/21/24 His tory apixaban 5 mg tablet (Eliquis) 5 mg PO BID #180 tabs 04/21/2401/05 Rx Ejection fraction %: 60 Have you fallen in the past year?: No PFSH Medical History Atrial fibrillation Premature atrial contractions Hyperlipidemia Essential hypertension Ventral incisional hernia Arthritis Surgical History Viveros esophagus (12/2022) History of ventral hernia repair History of Santos fundoplication History of hernia surgery ( 09/2021) Family History Father Heart disease Social History Smoking Status: Never smoker alcohol intake: current alcohol intake frequency: a few times a week substance use type: does not use caffeine: Yes Type: coffee Number of servings: 2 ROS Const Const: Negative for fatigue, weakness, headache(s) or frequent falls Eyes Eyes: Negative for blurry vision ENT ENT: Negative for headache(s), dizziness or Nosebleed/epistaxis Cardio Chest Pain: No Palpitations: No Edema: None Muscle aches with walking: None Resp Respiratory: Negative for SOB with activity, SOB at rest or SOB orthopnea SOB lying down GI GI: Negative nausea, vomiting, heartburn, bright, red blood in stools or black,tarry stools : Negative for hematuria Neuro Neuro: Negative for dizziness, lightheadedness, near syncope, syncope, frequent falls, headache(s), weakness or blurry vision Endo Endo: Negative for fatigue Cardiology Exam Const Appearance: no acute distress and well developed; Negative diaphoretic or ill appearing Nutritional Appearance: average body habitus Orientation: alert and oriented x3 Ambulating without assistive device Head Head: normocephalic and atraumatic Nose: external nose normal and Negative epistaxis Face and Sinus: face symmetric Eyes General: appearance normal, both eyes and all related structures Conjunctivae: Negative scleral icterus EOM: EOM intact bilaterally Neck Neck: no JVD Carotids: normal carotid upstroke; Negative bruit Neck Mass: Negative Neck mass Chest Chest inspection: normal respiratory effort; Negative respiratory distress, audible wheezes or tachypneic Auscultation: Bilateral: Clear to Auscultation Cardio Rate: regular rate Rhythm: regular rhythm Heart sounds: S1 normal and S2 normal; Negative rub, gallop or murmur Neuro General: patient alert, patient awake, patient oriented x3 and moves all extremities Extremities Pulses: Normal: Right Radial Pulse and Left Radial Pulse Lower Extremity Edema: None: Bilateral Psych Psychological: normal affect Supplemental Info Supplemental Information Echocardiogram 06/30/2021: Interpretation Summary Normal LV size. Left ventricular systolic function is normal. The estimated ejec (more content not included)... Normal [facility] H AND Josué 04-14-2024 H AND P [facility] [address] [facility] ([facility]) [facility] [address] [facility] [place]ELLA [facility] [id number] Ary Forde is a 73 y.o. male being seen on 01/29/24 for Chief Complaint Patient presents with Follow-up RFA HPI: The patient presents today to schedule his next RFA. 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 He is also undergoing a Santos fundoplication. Today he denies heartburn, regurgitation, or esophageal dysphagia. He and his are getting ready to leave for [place] for 2 months. 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 2017 Cecille GERD (gastroesophageal reflux disease) Hiatal hernia 07/31/2022 small type-I sliding Hypercholesteremia Hypertension PONV (postoperative nausea and vomiting) History - Past Surgical History Past Surgical History: Procedure Laterality Date ABDOMINAL HERNIA REPAIR 02/26/2014 EGD N/A 04/04/2020 Procedure: ESOPHAGOGASTRODUODENOSCOPY; Surgeon: Abbe Wood MD; Location: Main OR; Service: Gen-Rob[employer] EGD N/A 12/15/2020 Procedure: ESOPHAGOGASTRODUODENOSCOPY WITH BIOPSY; Surgeon: Abbe Wood MD; Location: Endo; Service: General Surgery EGD N/A 12/27/2020 Procedure: ESOPHAGOSCOPY WITH BIOPSY; Surgeon: Abbe Wood MD; Location: Endo; Service: General Surgery ESOPHAGOGASTRODUODENOSCOPY 11/25/2017 Viveros's esophagus.....Thomae ESOPHAGOGASTRODUODENOSCOPY 12/21/2019 [place]ae ESOPHAGOSCOPY N/A 01/02/2021 Procedure: ESOPHAGOSCOPY WITH RFA; Surgeon: Abbe Wood MD; Location: Endo; Service: Gastroenterology ESOPHAGOSCOPY N/A 07/04/2021 Procedure: ESOPHAGOSCOPY; Surgeon: Abbe Wood MD; Location: Endo; Service: Gastroenterology ESOPHAGOSCOPY N/A 07/18/2021 Procedure: ESOPHAGOSCOPY WITH RFA; Surgeon: Abbe Wood MD; Location: Endo; Service: Gastroenterology ESOPHAGOSCOPY N/A 05/01/2021 Procedure: ESOPHAGOSCOPY WITH RFA; Surgeon: Abbe Wood MD; Location: Endo; Service: Gastroenterology ESOPHAGOSCOPY N/A 09/12/2021 Procedure: ESOPHAGOSCOPY WITH RFA; Surgeon: Abbe Wood MD; Location: Endo; Service: Gastroenterology ESOPHAGOSCOPY N/A 12/14/2021 Procedure: ESOPHAGOSCOPY WITH RFA; Surgeon: Abbe Wood MD; Location: Endo; Service: Gastroenterology ESOPHAGOSCOPY N/A 04/17/2022 Procedure: ESOPHAGOSCOPY WITH RFA; Surgeon: Abbe Wood MD; Location: Endo; Service: Gastroenterology ESOPHAGOSCOPY N/A 06/19/2022 Procedure: ESOPHAGOSCOPY WITH biopsy; Surgeon: Abbe Wood MD; Location: Endo; Service: Gastroenterology ESOPHAGOSCOPY N/A 07/31/2022 Procedure: ESOPHAGOSCOPY WITH RFA; Surgeon: Abbe Wood MD; Location: Endo; Service: Gastroenterology ESOPHAGOSCOPY N/A 10/16/2022 Procedure: ESOPHAGOSCOPY WITH RFA; Surgeon: Abbe Wood MD; Location: Endo; Service: Gastroenterology ESOPHAGOSCOPY N/A 01/08/2023 Procedure: ESOPHAGOSCOPY WITH RFA; Surgeon: Abbe Wood MD; Location: Endo; Service: Gastroenterology ESOPHAGOSCOPY N/A 04/16/2023 Procedure: ESOPHAGOSCOPY WITH RFA; Surgeon: Abbe Wood MD; Location: Endo; Service: Gastroenterology ESOPHAGOSCOPY N/A 07/09/2023 Procedure: ESOPHAGOSCOPY WITH RFA; Surgeon: Abbe Wood MD; Location: Endo; Service: Gastroenterology ESOPHAGOSCOPY N/A 09/24/2023 Procedure: ESOPHAGOSCOPY WITH RFA; Surgeon: Abbe Wood MD; Location: Endo; Service: Gastroenterology HERNIA REPAIR Right 1998 Inguinal with mesh SANTOS FUNDOPLICATION ROBOT ASSISTED N/A 10/09/2021 Procedure: REDO HIATAL HERNIA REPAIR WITH YVES AND REDO SANTOS FUNDOPLICATION ROBOTIC XI; Surgeon: Abbe Wood MD; Location: Main OR; Service: [employer] REPAIR HERNIA HIATAL WITH SPHINCTER AUGMENTATION ROBOTIC XI N/A 04/04/2020 Procedure: REPAIR HERNIA HIATAL WITH mesh, lysis of adhesions and santos fundoplication ROBOTIC XI; Surgeon: Abbe Wood MD; Location: Main OR; Service: [employer] Allergies No Known Allergies Current Medications Current Outpatient Medications Medication Sig Dispense Refill amLODIPine (NORVASC) 10 MG tablet Take 1 (one) tablet (10 mg total) by mouth every morning . cholecalciferol, vitamin D3, 1,000 unit tablet Take 1 (one) tablet (1,000 Units total) by mouth every morning . cyanocobalamin, vitamin B-12, 2,000 mcg Tab Take 1 (one) tablet (2,000 mcg total) by mouth every morning . Eliquis 5 mg Tab ezetimibe-simvastatin (VYTORIN) 10-20 mg per tablet Take 1 (one) tablet by mouth every night at bedtime . omeprazole (PRILOSEC) 40 MG capsule Take 1 (one) capsule (40 mg total) by mouth 2 (two) times a day . 180 capsule 3 sucralfate (CARAFATE) 1 gram tablet Take 1 (one) tablet (1 g total) by mouth 4 (four) times a day before meals . 360 tablet 3 No current facility-administered medicati (more content not included)... Normal [facility] CBC W/Diff, Automatedon 12-0 Absolute Lymph 1.48 X10 3/uL Normal 0.83-4.51 [facility] Comment on above: Performed By: #### L 100.0100, L501.9910, L500.4100, L500.4050 #### [facility] [address] [place], [address] Absolute Neut 2.6 X10 3/uL Normal 2.0-7.7 [facility] Comment on above: Performed By: #### L 100.0100, L501.9910, L500.4100, L500.4050 #### [facility] [address] [place], [address] Basophils/100 WBC (Bld) 1.5 % High 0-1 [facility] Comment on above: Performed By: #### L 100.0100, L501.9910, L500.4100, L500.4050 #### [facility] [address] [place], [address] Eosinophils/100 WBC (Bld) 3.0 % Normal 0-5 [facility] Comment on above: Performed By: #### L 100.0100, L501.9910, L500.4100, L500.4050 #### [facility] [address] [place], [address] Erythrocyte distribution width (RBC) [Ratio] 12.1 % Normal 11.6-14.6 [facility] Comment on above: Performed By: #### L 100.0100, L501.9910, L500.4100, L500.4050 #### [facility] [address] [place], [address] Hematocrit (Bld) [Volume fraction] 42.5 % Normal 40-54 [facility] Comment on above: Performed By: #### L 100.0100, L501.9910, L500.4100, L500.4050 #### [facility] [address] [place], [address] Hemoglobin (Bld) [Mass/Vol] 13.8 g/dL Normal 13.0-16.5 [facility] Comment on above: Performed By: #### L 100.0100, L501.9910, L500.4100, L500.4050 #### [facility] [address] [place], [address] IG% 0.200 Normal 0.0-0.9 [facility] Comment on above: Result Comment: IG% - Immature Granulocytes (promyelocytes, myelocytes and metamyelocytes) > 1% indicates that a LEFT SHIFT is Present. Performed By: #### L 100.0100, L501.9910, L500.4100, L500.4050 #### [facility] [address] [place], [address] Lymphocytes/100 WBC (Bld) 31.8 % Normal 19-41 [facility] Comment on above: Performed By: #### L 100.0100, L501.9910, L500.4100, L500.4050 #### [facility] [address] [place], [address] MCH (RBC) [Entitic mass] 29.9 pg Normal 27.0-32.0 [facility] Comment on above: Performed By: #### L 100.0100, L501.9910, L500.4100, L500.4050 #### [facility] [address] [place], [address] MCHC (RBC) [Mass/Vol] 32.5 g/dL Normal 32-36 [facility] Comment on above: Performed By: #### L 100.0100, L501.9910, L500.4100, L500.4050 #### [facility] [address] [place], [address] MCV (RBC) [Entitic vol] 92.0 fL Normal 80-94 [facility] Comment on above: Performed By: #### L 100.0100, L501.9910, L500.4100, L500.4050 #### [facility] [address] [place], [address] Monocytes/100 WBC (Bld) 8.8 % Normal 0-10 [facility] Comment on above: Performed By: #### L 100.0100, L501.9910, L500.4100, L500.4050 #### [facility] [address] [place], [address] Neutrophils/100 WBC (Bld) 54.7 % Normal 47-70 [facility] Comment on above: Performed By: #### L 100.0100, L501.9910, L500.4100, L500.4050 #### [facility] [address] [place], [address] Nucleated RBC (Bld) [#/Vol] 0 10*3/uL Normal 0-5 [facility] Comment on above: Performed By: #### L 100.0100, L501.9910, L500.4100, L500.4050 #### [facility] [address] [place], [address] Platelet mean volume (Bld) [Entitic vol] 10.0 fL Normal 6.2-12.0 [facility] Comment on above: Performed By: #### L 100.0100, L501.9910, L500.4100, L500.4050 #### [facility] [address] [place], [address] Platelets (Bld) [#/Vol] 229 10*3/uL Normal 150-450 [facility] Comment on above: Performed By: #### L 100.0100, L501.9910, L500.4100, L500.4050 #### [facility] [address] [place], [address] RBC (Bld) [#/Vol] 4.62 10*6/uL Normal 4.6-6.2 [facility] Comment on above: Performed By: #### L 100.0100, L501.9910, L500.4100, L500.4050 #### [facility] [address] [place], [address] RDW SD 41.1 fl Normal 35.1-43.9 [facility] Comment on above: Performed By: #### L 100.0100, L501.9910, L500.4100, L500.4050 #### [facility] [address] [place], [address] WBC (Bld) [#/Vol] 4.7 10*3/uL Normal 4.4-11.0 [facility] Comment on above: Performed By: #### L 100.0100, L501.9910, L500.4100, L500.4050 #### [facility] [address] [place], [address] Comprehensive Metabolic Prof [facility] 01-20-2024 Albumin [Mass/Vol] 3.9 g/dL Normal 3.2-5.0 [facility] Comment on above: Performed By: #### L 100.0100, L501.9910, L500.4100, L500.4050 #### [facility] [address] [place], [address] Albumin/Globulin [Mass ratio] 1.0 {ratio} Normal 0.9-2.4 [facility] Comment on above: Performed By: #### L 100.0100, L501.9910, L500.4100, L500.4050 #### [facility] [address] [place], [address] ALK P 79 U/L Normal 45-117 [facility] Comment on above: Performed By: #### L 100.0100, L501.9910, L500.4100, L500.4050 #### [facility] [address] [place], [address] ALT [Catalytic activity/Vol] 23 U/L Normal 16-61 [facility] Comment on above: Performed By: #### L 100.0100, L501.9910, L500.4100, L500.4050 #### [facility] [address] [place], [address] AST [Catalytic activity/Vol] 19 U/L Normal 15-37 [facility] Comment on above: Performed By: #### L 100.0100, L501.9910, L500.4100, L500.4050 #### [facility] [address] [place], [address] Bilirubin [Mass/Vol] 0.40 mg/dL Normal 0.20-1.00 [facility] Comment on above: Result Comment: For patients on eltrombopag therapy, use of Dimension [place] TBIL is not recommended. Performed By: #### L 100.0100, L501.9910, L500.4100, L500.4050 #### [facility] [address] [place], [address] BUN/CRE 16.4 RATIO Normal 10-20 [facility] Comment on above: Performed By: #### L 100.0100, L501.9910, L500.4100, L500.4050 #### [facility] [address] [place], [address] CA,Total 9.6 mg/dL Normal 8.5-10.1 [facility] Comment on above: Performed By: #### L 100.0100, L501.9910, L500.4100, L500.4050 #### [facility] [address] [place], [address] Chloride [Moles/Vol] 104 mmol/L Normal 98-107 [facility] Comment on above: Performed By: #### L 100.0100, L501.9910, L500.4100, L500.4050 #### [facility] [address] [place], [address] CO2 [Moles/Vol] 31.0 mmol/L Normal 21.0-32.0 [facility] Comment on above: Performed By: #### L 100.0100, L501.9910, L500.4100, L500.4050 #### [facility] [address] [place], [address] Creatinine [Mass/Vol] 0.79 mg/dL Normal 0.70-1.30 [facility] Comment on above: Result Comment: The validity of the calculated GFR GFRAA in patients over 70 years has not been determined. Clinical correlation is essential. Performed By: #### L 100.0100, L501.9910, L500.4100, L500.4050 #### [facility] [address] [place], [address] EST GFR - AA 123 mL/min Normal >60 [facility] Comment on above: Result Comment: Afri can [place] GFR Calc Performed By: #### L 100.0100, L501.9910, L500.4100, L500.4050 #### [facility] [address] [place], [address] GAP 4 Low 5-15 [facility] Comment on above: Performed By: #### L 100.0100, L501.9910, L500.4100, L500.4050 #### [facility] [address] [place], [address] GFR/1.73 sq M.predicted among non-blacks MDRD (S/P/Bld) [Vol rate/Area] 101 mL/min/{1.73_m2} Normal >60 [facility] Comment on above: Result Comment: Non- GFR Calc Performed By: #### L 100.0100, L501.9910, L500.4100, L500.4050 #### [facility] [address] [place], [address] Globulin (S) [Mass/Vol] 3.8 g/dL Normal 2.2-4.2 [facility] Comment on above: Performed By: #### L 100.0100, L501.9910, L500.4100, L500.4050 #### [facility] [address] [place], [address] Glucose [Mass/Vol] 119 mg/dL High 74-106 [facility] Comment on above: Result Comment: Fast ing Glucose result from 100 to 125 mg/dL suggests IMPAIRED HOMEOSTASIS per A.D.A. criteria. Performed By: #### L 100.0100, L501.9910, L500.4100, L500.4050 #### [facility] [address] [place], [address] Potassium [Moles/Vol] 3.9 mmol/L Normal 3.5-5.1 [facility] Comment on above: Performed By: #### L 100.0100, L501.9910, L500.4100, L500.4050 #### [facility] [address] [place], [address] Sodium [Moles/Vol] 139 mmol/L Normal 136-145 [facility] Comment on above: Performed By: #### L 100.0100, L501.9910, L500.4100, L500.4050 #### [facility] [address] [place], [address] T PROT 7.7 g/dL Normal 6.4-8.2 [facility] Comment on above: Performed By: #### L 100.0100, L501.9910, L500.4100, L500.4050 #### [facility] [address] [place], [address] Urea nitrogen [Mass/Vol] 13 mg/dL Normal 7-18 [facility] Comment on above: Performed By: #### L 100.0100, L501.9910, L500.4100, L500.4050 #### [facility] [address] [place], [address] Lipid Profileon 01-20-2024 Cholesterol [Mass/Vol] 115 mg/dL Normal 200 [facility] Comment on above: Result Comment: <200 mg/dL Desirable 200-240 mg/dL Borderline >240 mg/dL High Risk Performed By: #### L 100.0100, L501.9910, L500.4100, L500.4050 #### [facility] [address] [place], [address] Cholesterol in HDL [Mass/Vol] 62 mg/dL Normal [facility] Comment on above: Result Comment: The drugs N-Acetylcysteine and Metamizole may falsely depress this assay. Reference Range HDL <40 mg/dL Low HDL Cholesterol HDL >or= 60 mg/dL High HDL Cholesterol Performed By: #### L 100.0100, L501.9910, L500.4100, L500.4050 #### [facility] [address] [place], [address] Cholesterol in LDL [Mass/Vol] 43 mg/dL Normal 0-130 [facility] Comment on above: Performed By: #### L 100.0100, L501.9910, L500.4100, L500.4050 #### [facility] [address] [place], [address] Cholesterol in VLDL [Mass/Vol] 10 mg/dL Normal 5-40 [facility] Comment on above: Performed By: #### L 100.0100, L501.9910, L500.4100, L500.4050 #### [facility] [address] [place], [address] Triglyceride [Mass/Vol] 48 mg/dL Normal [facility] Comment on above: Result Comment: The drugs N-Acetylcysteine and Metamizole may falsely depress this assay. Serum Triglycerides Reference Interval Normal <150 mg/dL Borderline high 150 - 199 mg/dL High 200 - 499 mg/dL Very High > or = 500 mg/dL Performed By: #### L 100.0100, L501.9910, L500.4100, L500.4050 #### [facility] [address] [place], [address] PSA,Total - Annual Screenon 01-20-2024 PSA,TOT SCREEN 1.42 ng/mL Normal 0.00-4.00 [facility] Comment on above: Result Comment: This test was performed using the TPSA assay method for the [employer] chemistry system. Values obtained with different assay methods cannot be used interchangably. When changing PSA assays in the course of monitoring a patient, additional sequential testing should be carried out to confirm baseline values. Performed By: #### L 100.0100, L501.9910, L500.4100, L500.4050 #### [facility] [address] [place], [address] H AND Josué 09-24-2023 H AND P OPG [address] [facility] [place] ([address]) [facility] [address] [facility] [id number] Ary Forde is a 73 y.o. male being seen on 08/14/23 for Chief Complaint Patient presents with Follow-up Long segment Viveros's esophagus, RFA HPI: The patient presents today for follow-up after his most recent RFA. He has a known history of long segment Viveros's and has previously undergone fundoplication. His last RFA was on 07/09/2023. At that time his Atlas classification was C0-M5. There was mainly spotty disease noted. He underwent treatment with RFA. Today he denies meaningful heartburn, regurgitation, or esophageal dysphagia. He reports significant decrease in the overall amount of phlegm in the back of his throat. 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 2017 [place] GERD (gastroesophageal reflux disease) Hiatal hernia 07/31/2022 small type-I sliding Hypercholesteremia Hypertension PONV (postoperative nausea and vomiting) History - Past Surgical History Past Surgical History: Procedure Laterality Date ABDOMINAL HERNIA REPAIR 02/26/2014 EGD N/A 04/04/2020 Procedure: ESOPHAGOGASTRODUODENOSCOPY; Surgeon: Abbe Wood MD; Location: Main OR; Service: [employer] EGD N/A 12/15/2020 Procedure: ESOPHAGOGASTRODUODENOSCOPY WITH BIOPSY; Surgeon: Abbe Wood MD; Location: Endo; Service: General Surgery EGD N/A 12/27/2020 Procedure: ESOPHAGOSCOPY WITH BIOPSY; Surgeon: Abbe Wood MD; Location: Endo; Service: General Surgery ESOPHAGOGASTRODUODENOSCOPY 11/25/2017 Viveros's esophagus.....[place] ESOPHAGOGASTRODUODENOSCOPY 12/21/2019 [place] ESOPHAGOSCOPY N/A 01/02/2021 Procedure: ESOPHAGOSCOPY WITH RFA; Surgeon: Abbe Wood MD; Location: Endo; Service: Gastroenterology ESOPHAGOSCOPY N/A 07/04/2021 Procedure: ESOPHAGOSCOPY; Surgeon: Abbe Wood MD; Location: Endo; Service: Gastroenterology ESOPHAGOSCOPY N/A 07/18/2021 Procedure: ESOPHAGOSCOPY WITH RFA; Surgeon: Abbe Wood MD; Location: Endo; Service: Gastroenterology ESOPHAGOSCOPY N/A 05/01/2021 Procedure: ESOPHAGOSCOPY WITH RFA; Surgeon: Abbe Wood MD; Location: Endo; Service: Gastroenterology ESOPHAGOSCOPY N/A 09/12/2021 Procedure: ESOPHAGOSCOPY WITH RFA; Surgeon: Abbe Wood MD; Location: Endo; Service: Gastroenterology ESOPHAGOSCOPY N/A 12/14/2021 Procedure: ESOPHAGOSCOPY WITH RFA; Surgeon: Abbe Wood MD; Location: Endo; Service: Gastroenterology ESOPHAGOSCOPY N/A 04/17/2022 Procedure: ESOPHAGOSCOPY WITH RFA; Surgeon: Abbe Wood MD; Location: Endo; Service: Gastroenterology ESOPHAGOSCOPY N/A 06/19/2022 Procedure: ESOPHAGOSCOPY WITH biopsy; Surgeon: Abbe Wood MD; Location: Endo; Service: Gastroenterology ESOPHAGOSCOPY N/A 07/31/2022 Procedure: ESOPHAGOSCOPY WITH RFA; Surgeon: Abbe Wood MD; Location: Endo; Service: Gastroenterology ESOPHAGOSCOPY N/A 10/16/2022 Procedure: ESOPHAGOSCOPY WITH RFA; Surgeon: Abbe Wood MD; Location: Endo; Service: Gastroenterology ESOPHAGOSCOPY N/A 01/08/2023 Procedure: ESOPHAGOSCOPY WITH RFA; Surgeon: Abbe Wood MD; Location: Endo; Service: Gastroenterology ESOPHAGOSCOPY N/A 04/16/2023 Procedure: ESOPHAGOSCOPY WITH RFA; Surgeon: Abbe Wood MD; Location: Endo; Service: Gastroenterology ESOPHAGOSCOPY N/A 07/09/2023 Procedure: ESOPHAGOSCOPY WITH RFA; Surgeon: Abbe Wood MD; Location: Endo; Service: Gastroenterology HERNIA REPAIR Right 1998 Inguinal with mesh SANTOS FUNDOPLICATION ROBOT ASSISTED N/A 10/09/2021 Procedure: REDO HIATAL HERNIA REPAIR WITH YVES AND REDO SANTOS FUNDOPLICATION ROBOTIC XI; Surgeon: Abbe Wood MD; Location: Main OR; Service: [employer] REPAIR HERNIA HIATAL WITH SPHINCTER AUGMENTATION ROBOTIC XI N/A 04/04/2020 Procedure: REPAIR HERNIA HIATAL WITH mesh, lysis of adhesions and santos fundoplication ROBOTIC XI; Surgeon: Abbe Wood MD; Location: Main OR; Service: [employer] Allergies No Known Allergies Current Medications Current Outpatient Medications Medication Sig Dispense Refill amLODIPine (NORVASC) 10 MG tablet Take 1 (one) tablet (10 mg total) by mouth every morning . cholecalciferol, vitamin D3, 1,000 unit tablet Take 1 (one) tablet (1,000 Units total) by mouth every morning . cyanocobalamin, vitamin B-12, 2,000 mcg Tab Take 1 (one) tablet (2,000 mcg total) by mouth every morning . Eliquis 5 mg Tab ezetimibe-simvastatin (VYTORIN) 10-20 mg per tablet Take 1 (one) tablet by mouth every night at bedtime . omeprazole (PRILOSEC) 40 MG capsule Take 1 (one) capsule (40 mg total) by mouth 2 (two) times a day . 60 capsule 3 sucralfate (CARAFATE) 1 gram tablet Take 1 (one) tablet (1 g total) by mouth 4 (four) times a day bef (more content not included)... Normal [facility] Absolute lymphocyte countOrd ered By: Emanuel Aguilar on 01-18-2023 Lymphocytes Auto (Unsp spec) [#/Vol] 1.63 10*3/uL 0.83-4.51 [facility] Basophil percentageOrdered B y: Emanuel Aguilar on 01-18-2023 Basophils/100 WBC (Bld) 0.8 % 0-1 [facility] Bilirubin [Mass/Vol] 0.50 mg/dL 0.20-1.00 [facility] Comment on above: For patients on eltr ombopag therapy, use of Dimension [place] TBIL is not recommended. Chloride [Moles/Vol] 105 mmol/L 98-107 [facility] Cholesterol [Mass/Vol] 106 mg/dL <200 [facility] Comment on above: <200 mg/dL Desirable 200-240 mg/dL Borderline >240 mg/dL High Risk Eosinophils/100 WBC (Bld) 2.8 % 0-5 [facility] Glucose [Mass/Vol] 98 mg/dL 74-106 [facility] Neutrophils (Bld) [#/Vol] 5.3 10*3/uL 2.0-7.7 [facility] Neutrophils/100 WBC (Bld) 68.4 % 47-70 [facility] Potassium [Moles/Vol] 4.8 mmol/L 3.5-5.1 [facility] Protein [Mass/Vol] 7.8 g/dL 6.4-8.2 [facility] Sodium [Moles/Vol] 138 mmol/L 136-145 [facility] Triglyceride [Mass/Vol] 54 mg/dL <199 [facility] Comment on above: The drugs N-Acetylcy steine and Metamizole may falsely depress this assay.Serum Triglycerides Reference Interval Normal <150 mg/dL Borderline high 150 - 199 mg/dL High 200 - 499 mg/dL Very High > or = 500 mg/dL WBC (Bld) [#/Vol] 7.8 10*3/uL 4.4-11.0 [facility] Blood erythrocytes count (nu mber/volume)Ordered By: Emanuel Aguilar on 01-18-2023 RBC (Bld) [#/Vol] 4.51 10*6/uL 4.6-6.2 [facility] Blood hemoglobin measurement (mass/volume)Ordered By: Emanuel Aguilar on 01-18-2023 Hemoglobin (Bld) [Mass/Vol] 13.3 g/dL 13.0-16.5 [facility] Blood lymphocytes/100 leukoc ytesOrdered By: Emanuel Aguilar on 01-18-2023 Lymphocytes/100 WBC (Bld) 21.0 % 19-41 [facility] Blood monocytes/100 leukocyt esOrdered By: Emanuel Aguilar on 01-18-2023 Monocytes/100 WBC (Bld) 6.7 % 0-10 [facility] Blood platelet mean volumeOr dered By: Emanuel Aguilar on 01-18-2023 Platelet mean volume (Bld) [Entitic vol] 10.5 fL 6.2-12.0 [facility] Determination of erythrocyte mean corpuscular volume (MCV)Ordered By: Emanuel Aguilar on 01-18-2023 MCV (RBC) [Entitic vol] 91.1 fL 80-94 [facility] Hematocrit Auto (Bld) [Volum e fraction]Ordered By: Emanuel Aguilar on 01-18-2023 Hematocrit (Bld) [Volume fraction] 41.1 % 40-54 [facility] - Chemistry and C hemistry - challengeOrdered By: Emanuel Aguilar on 01-18-2023 ALP [Catalytic activity/Vol] 78 U/L 45-117 [facility] ALT [Catalytic activity/Vol] 25 U/L 16-61 [facility] CO2 [Moles/Vol] 29.0 mmol/L 21.0-32.0 [facility] Globulin (S) [Mass/Vol] 4.0 g/dL 2.2-4.2 [facility] Urea nitrogen/Creatinine [Mass ratio] 13.4 mg/mg 10-20 [facility] - Hematology and Cell countsOrdered By: Emanuel Aguilar on 01-18-2023 Erythrocyte distribution width (RBC) [Entitic vol] 41.7 fL 35.1-43.9 [facility] Erythrocyte distribution width (RBC) [Ratio] 12.6 % 11.6-14.6 [facility] Immature granulocytes/100 WBC (Bld) 0.300 % 0.0-0.9 [facility] Comment on above: IG% - Immature Granu locytes (promyelocytes, myelocytes and metamyelocytes) > 1% indicates that a LEFT SHIFT is Present. MCH (RBC) [Entitic mass] 29.5 pg 27.0-32.0 [facility] Nucleated RBC/100 WBC (Bld) [Ratio] 0 % 0-5 [facility] MCHC Auto (RBC) [Mass/Vol]Or dered By: Emanuel Aguilar on 01-18-2023 MCHC (RBC) [Mass/Vol] 32.4 g/dL 32-36 [facility] No Panel InformationOrdered By: Emanuel Aguilar on 01-18-2023 Estimated GFR (MDRD) Amer 132 mL/min >60 [facility] Comment on above: GFR Calc Estimated GFR (MDRD) Non-Af Amer 109 mL/min >60 [facility] Comment on above: Non- GFR Calc Prostate Specific Antigen Screen 1.73 ng/mL 0.00-4.00 [facility] Comment on above: This test was perfor med using the TPSA assay method for [email or web address] chemistry system. Values obtained with differentassay methods cannot be used interchangably.When changing PSA assays in the course of monitoring apatient, additional sequential testing should be carriedout to confirm baseline values. Platelets bldOrdered By: Azalea Aguilar on 01-18-2023 Platelets (Bld) [#/Vol] 236 10*3/uL 150-450 [facility] Serum or plasma albumin caesar urement (mass/volume)Ordered By: Emanuel Aguilar on 01-18-2023 Albumin [Mass/Vol] 3.8 g/dL 3.2-5.0 [facility] Serum or plasma albumin/glob ulin mass ratioOrdered By: Emanuel Aguilar on 01-18-2023 Albumin/Globulin [Mass ratio] 1.0 {ratio} 0.9-2.4 [facility] Serum or plasma calcium caesar urement (mass/volume)Ordered By: Emanuel Aguilar on 01-18-2023 Calcium [Mass/Vol] 8.9 mg/dL 8.5-10.1 [facility] Serum or plasma cholesterol in HDL measurement (mass/volume)Ordered By: Emanuel Aguilar on 01-18-2023 Cholesterol in HDL [Mass/Vol] 62 mg/dL >40 [facility] Comment on above: The drugs N-Acetylcy steine and Metamizole may falsely depress this assay. Reference Range HDL <40 mg/dL Low HDL Cholesterol HDL >or= 60 mg/dL High HDL Cholesterol Serum or plasma cholesterol in VLDL measurement (mass/volume)Ordered By: Emanuel Aguilar on 01-18-2023 Cholesterol in VLDL [Mass/Vol] 11 mg/dL 5-40 [facility] [facility] Serum or plasma creatinine m easurement (mass/volume)Ordered By: Emanuel Aguilar on 01-18-2023 Creatinine [Mass/Vol] 0.75 mg/dL 0.70-1.30 [facility] Comment on above: The validity of the calculated GFR & GFRAA in patients over 70 years has not been determined. Clinical correlation is essential. Serum or plasma low density lipoprotein (LDL) cholesterol measurement (mass/volume)Ordered By: Emanuel Aguilar on 01-18-2023 Cholesterol in LDL [Mass/Vol] 33 mg/dL 0-130 [facility] Serum or plasma urea nitroge n measurement (mass/volume)Ordered By: Emanuel Aguilar on 01-18-2023 Urea nitrogen [Mass/Vol] 10 mg/dL 7-18 [facility] Thin prep Papanicolaou smear with manual screeningOrdered By: Emanuel Aguilar on 01-18-2023 Thin prep Papanicolaou smear with manual screening 20 U/L 15-37 [facility] Thin prep Papanicolaou smear with manual screening 4 5-15 [facility] XR COMPARISON IMPORTon 12-29 This order has been auto-finalized and does not contain a result. [facility] GI ESOPHAGRAMon 12-25-2019 GI ESOPHAGRAM Patient Name: ARY FORDE STUDY: GI ESOPHAGRAM; ; 12/25/2019 9:13 am INDICATION: upper gi discomfort. COMPARISON: None. ACCESSION NUMBER(S): [id number] ORDERING CLINICIAN: ARABELLA ODEN TECHNIQUE: The patient was examined in the upright and prone positions with barium and overall crystals. Fluoroscopic examination and overhead films were obtained. Fluoroscopy time 0.8 minutes. FINDINGS: A large hiatal hernia is present. The fundus of the stomach is herniated in the prone position with some reduction in the upright position. The esophagus, enters at the superior posterior aspect of the herniated stomach. The stomach is rotated, with the duodenum pointing inferiorly. No gastroesophageal reflux. No aspiration occurred. Normal peristalsis is seen in the esophagus. IMPRESSION: Large hiatal hernia. No esophageal narrowing or gastroesophageal reflux. Normal peristaltic activity in the esophagus Electronically signed by: JOAQUIN HANSON MD [facility] Surgical Pathology Depar tmenton 12-21-2019 [facility] Surgical Pathology Department Name ARY FORDE Pathologist: DANYELL STEPHENS MD Date of Procedure: 12/21/2019 Date Received: 12/22/2019 Date Reported 12/23/2019 Submitting Physician: ARABELLA ODEN DO Location: [facility] Endoscopy Copy To/Referring/Attending: DAGO MCNAMARA MD Other External # FINAL DIAGNOSIS A. DISTAL ESOPHAGUS: -- GASTRIC GLANDULAR MUCOSA WITH INTESTINAL METAPLASIA; SEE COMMENT. -- NEGATIVE FOR DYSPLASIA. COMMENT: The findings are consistent with Viveros esophagus in the appropriate endoscopic setting. Electronically Signed Out By DANYELL STEPHENS MD/FINN By the signature on this report, the individual or group listed as making the Final Interpretation/Diagnosis certifies that they have reviewed this case. Clinical History: Physician Contact Number: [id number] Fixative (A): Formalin Clinical Diagnosis History BARRETTS Specimens Submitted As: A: DISTAL ESOPHAGUS Gross Description: Received in formalin, labeled with the patient's name and hospital number and distal esophagus BX, are multiple fragments of worley, soft tissue aggregating to 1.5 x 0.2 x 0.2 cm. The specimen is submitted in toto in one cassette. SBS ssn/12/22/2019 [facility] Department of Pathology [address] [place] [address] Normal [facility] Comment on above: Performed By: #### U [facility] #### [facility] Surgical Pathology Department [address] [place] [address] CORONAVIRUS 2019, SCREEN ASY MPTOMATICon 12-20-2019 CORONAVIRUS 2019,PCR NOT DETECTED Normal Not Detected [facility] Comment on above: Result Comment: . This assay is designed to detect the N, ORF1ab and/or S genes of SARS-CoV-2 via nucleic acid amplification. A Negative (NOT DETECTED) result does not preclude 2019-nCoV infection since the adequacy of sample collection and/or low viral burden may result in presence of viral nucleic acids below the clinical sensitivity of this test method. Negative (NOT DETECTED) result should not be used as the sole basis for treatment or other patient management decisions. Rather negative results should be combined with clinical observations, patient history, and epidemiological information to make patient management decisions. Fact sheet for providers: https://www.fda.gov/media/735787/download Fact sheet for patients: https://www.fda.gov/media/740915/download This test has received FDA Emergency Use Authorization (EUA) and has been verified by [facility] ([facility]). This test is only authorized for the duration of time that circumstances exist to justify the authorization of the emergency use of in vitro diagnostic tests for the detection of SARS-CoV-2 virus and/or diagnosis of COVID-19 infection under section 564(b)(1) of the Act, 21 U.S.C. 360bbb-3(b)(1), unless the authorization is terminated or revoked sooner. [facility] is certified under CLIA-88 as qualified to perform high complexity testing. Testing is performed in the [facility] laboratories located at [address] [place] [address]. Performed By: #### C [facility] #### [address] [place] [address] CORONAVIRUS 2019, SCREEN ASY MPTOMATICon 12-19-2019 Lab Specimen Source Nasal, Nasopharyngeal Normal [facility] Comment on above: Performed By: #### [facility] #### [address] [place] [address] CORONAVIRUS 2019, SCREEN ASY MPTOMATICon 12-10-2019 EMPLOYED IN HEALTHCARE? Unknown Normal [facility] Comment on above: Performed By: #### C [place] #### [place] [address] FIRST COVID NASAL SWAB TEST? Unknown Normal [facility] Comment on above: Performed By: #### [facility] #### [address] [place] [address] HOSPITALIZED (OR PLANNED TO BE ADMITTED)? Unknown Normal [facility] Comment on above: Performed By: #### [facility] #### [address] [address] ICU? Unknown Normal [facility] Comment on above: Performed By: #### C [facility] #### [facility] [address] [place] [address] REQUIRED FOR PROCEDURE/SURGERY? Unknown Normal [facility] Comment on above: Performed By: #### C [facility] #### [facility] [address] [place] [id number] RESIDENT IN CONGREGATE CARE SETTING? Unknown Normal [facility] Comment on above: Performed By: #### [facility] #### [facility] [address] [place] [address] SYMPTOMATIC DEFINED BY CDC? Unknown Normal [facility] Comment on above: Performed By: #### [facility] #### [facility] [address] [place] [address] EMPLOYEE? Unknown Normal [facility] Comment on above: Performed By: #### [facility] #### [facility] [address] 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 Last EGD was Nov 25, 2017. Currently taking Pantoprazole 40 mg daily with no complaints. History of Present Illness There is seen today in routine follow-up for reflux disease and Vievros's esophagus. Last endoscopy performed November 2017. Long segment Viveros's measuring 8 cm. Experiencing no reflux symptoms or dysphagia. Review of Systems Constitutional: no fever, no chills, not feeling tired and no recent weight loss. ENT: no lymphadenopathy. Cardiovascular: no shortness of breath and no chest pain. Respiratory: no cough. Gastrointestinal: as noted in HPI. Musculoskeletal: no joint swelling. Integumentary: no rashes, no skin lesions and was no jaundiced. All other systems have been reviewed and are negative for complaint. 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) Essential hypertension (401.9) (I10) Surgical History Problems History of Colonoscopy History of Esophagogastroduodenoscopy History of Umbilical hernia repair Family History Father Family history of essential hypertension (V17.49) (Z82.49) Family history of hyperlipidemia (V18.19) (Z83.438) Family history of hypertension (V17.49) (Z82.49) Social History Problems Consumes alcohol occasionally (V49.89) (Z78.9) Daily caffeinated coffee consumption Never a smoker No illicit drug use Patient has living will (V49.89) (Z78.9) Allergies Medication No Known Drug Allergies Recorded By: Vivi Henry; 03/17/2019 10:24:26 AM Current Meds Medication NameInstruction amLODIPine Besylate 10 MG Oral Tablet Pantoprazole Sodium 40 MG Oral Tablet Delayed Release Vytorin 10-20 MG Oral Tablet Vitals Vital Signs Recorded: [id number] 09:59AM [id number] Uqtimjlut36 Height5 ft 11 in Qoyztv351 lb BMI Jigelcohpt26.73 BSA Calculated2.14 Physical Exam Constitutional General appearance: In no acute distress . Eyes Anicteric Sclerae . Pulmonary Auscultation of lungs: Clear. Cardiovascular Auscultation of heart: RRR without murmur. Examination of extremities for edema: Normal. Abdomen Soft, non-tender. Bowel sounds normal. No hepatomegaly or splenomegaly. Signatures Electronically signed by : Arabella Oden DO; Mar 18 2019 12:44PM EST (Author) Normal [facility] Vital Signs Date Time Vital Sign Value Performing Clinician Facility 07-22-2024 08:29-0400 Body height 182.9 cm Abbe Wood MD Work Phone: [facility] 07-22-2024 08:29-0400 Body mass index (BMI) [Ratio] 23.45 kg/m2 Abbe Wood MD Work Phone: [facility] 07-22-2024 08:29-0400 Body weight 78.43 kg Abbe Wood MD Work Phone: [facility] 07-22-2024 08:29-0400 Diastolic blood pressure 84 mm[Hg] Abbe Wood MD Work Phone: [facility] 07-22-2024 08:29-0400 Heart rate 66 /min Abbe Wood MD Work Phone: [facility] 07-22-2024 08:29-0400 SaO2% (BldA) [Mass fraction] 98 % Abbe Wood MD Work Phone: [facility] 07-22-2024 08:29-0400 Systolic blood pressure 162 mm[Hg] Abbe Wood MD Work Phone: [facility] 04-29-2024 10:46-0400 Body height 180.3 cm Abbe Wood MD Work Phone: [facility] 04-29-2024 10:46-0400 Body mass index (BMI) [Ratio] 24.16 kg/m2 Abbe Wood MD Work Phone: [facility] 04-29-2024 10:46-0400 Body weight 78.56 kg Abbe Wood MD Work Phone: [facility] 04-29-2024 10:46-0400 Diastolic blood pressure 84 mm[Hg] Abbe Wood MD Work Phone: [facility] 04-29-2024 10:46-0400 Heart rate 56 /min Abbe Wood MD Work Phone: [facility] 04-29-2024 10:46-0400 SaO2% (BldA) [Mass fraction] 96 % Abbe Wood MD Work Phone: [facility] 04-29-2024 10:46-0400 Systolic blood pressure 152 mm[Hg] Abbe Wood MD Work Phone: [facility] 01-29-2024 07:52-0500 Body mass index (BMI) [Ratio] 24.13 kg/m2 Abbe Wood MD Work Phone: [facility] 01-29-2024 07:52-0500 Body weight 78.47 kg Abbe Wood MD Work Phone: [facility] 01-29-2024 07:52-0500 Diastolic blood pressure 90 mm[Hg] Abbe Wood MD Work Phone: [facility] 01-29-2024 07:52-0500 Heart rate 99 /min Abbe Wood MD Work Phone: [facility] 01-29-2024 07:52-0500 Systolic blood pressure 135 mm[Hg] Abbe Wood MD Work Phone: [facility] 08-14-2023 08:09-0400 Body height 180.3 cm Abbe Wood MD Work Phone: [facility] 08-14-2023 08:09-0400 Body mass index (BMI) [Ratio] 23.51 kg/m2 Abbe Wood MD Work Phone: [facility] 08-14-2023 08:09-0400 Body weight 76.48 kg Abbe Wood MD Work Phone: [facility] 08-14-2023 08:09-0400 Diastolic blood pressure 86 mm[Hg] Abbe Wood MD Work Phone: [facility] 08-14-2023 08:09-0400 Heart rate 62 /min Abbe Wood MD Work Phone: [facility] 08-14-2023 08:09-0400 SaO2% (BldA) [Mass fraction] 97 % Abbe Wood MD Work Phone: [facility] 08-14-2023 08:09-0400 Systolic blood pressure 163 mm[Hg] Abbe Wood MD Work Phone: [facility] 05-22-2023 08:16-0400 Body height 182.9 cm Abbe Wood MD Work Phone: [facility] 05-22-2023 08:16-0400 Body mass index (BMI) [Ratio] 22.53 kg/m2 Abbe Wood MD Work Phone: [facility] 05-22-2023 08:16-0400 Body weight 75.34 kg Abbe Wood MD Work Phone: [facility] 05-22-2023 08:16-0400 Diastolic blood pressure 86 mm[Hg] Abbe Wood MD Work Phone: [facility] 05-22-2023 08:16-0400 Heart rate 64 /min Abbe Wood MD Work Phone: [facility] 05-22-2023 08:16-0400 SaO2% (BldA) [Mass fraction] 97 % Abbe Wood MD Work Phone: [facility] 05-22-2023 08:16-0400 Systolic blood pressure 162 mm[Hg] Abbe oWod MD Work Phone: [facility] 12-05-2022 07:55-0400 Body mass index (BMI) [Ratio] 23.06 kg/m2 Abbe Wood MD Work Phone: [facility] 12-05-2022 07:55-0400 Body weight 77.11 kg Abbe Wood MD Work Phone: [facility] 12-05-2022 07:55-0400 Diastolic blood pressure 83 mm[Hg] Abbe Wood MD Work Phone: [facility] 12-05-2022 07:55-0400 Heart rate 64 /min Abbe Wood MD Work Phone: [facility] 12-05-2022 07:55-0400 Systolic blood pressure 159 mm[Hg] Abbe Wood MD Work Phone: [facility] 09-13-2022 08:16-0400 Body height 182.9 cm Abeb Wood MD Work Phone: [facility] 09-13-2022 08:16-0400 Body mass index (BMI) [Ratio] 23.03 kg/m2 Abbe Wood MD Work Phone: [facility] 09-13-2022 08:16-0400 Body weight 77.02 kg Abbe Wood MD Work Phone: [facility] 09-13-2022 08:16-0400 Diastolic blood pressure 89 mm[Hg] Abbe Wood MD Work Phone: [facility] 09-13-2022 08:16-0400 Heart rate 54 /min Abbe Wood MD Work Phone: [facility] 09-13-2022 08:16-0400 SaO2% (BldA) [Mass fraction] 96 % Abbe Wood MD Work Phone: [facility] 09-13-2022 08:16-0400 Systolic blood pressure 171 mm[Hg] Abbe Wood MD Work Phone: [facility] 02-07-2022 08:10-0500 Body height 182.9 cm Abbe Wood MD Work Phone: [facility] 02-07-2022 08:10-0500 Body mass index (BMI) [Ratio] 25.36 kg/m2 Abbe Wood MD Work Phone: [facility] 02-07-2022 08:10-0500 Body weight 84.82 kg Abbe Wood MD Work Phone: [facility] 02-07-2022 08:10-0500 Diastolic blood pressure 85 mm[Hg] Abbe Wood MD Work Phone: [facility] 02-07-2022 08:10-0500 Heart rate 69 /min Abbe Wood MD Work Phone: [facility] 02-07-2022 08:10-0500 SaO2% (BldA) [Mass fraction] 94 % Abbe Wood MD Work Phone: [facility] 02-07-2022 08:10-0500 Systolic blood pressure 154 mm[Hg] Abbe Wood MD Work Phone: [facility] 11-23-2021 07:43-0400 Body mass index (BMI) [Ratio] 24.68 kg/m2 Abbe Wood MD Work Phone: [facility] 11-23-2021 07:43-0400 Body weight 82.56 kg Abbe Wood MD Work Phone: [facility] 11-23-2021 07:43-0400 Diastolic blood pressure 89 mm[Hg] Abbe Wood MD Work Phone: [facility] 11-23-2021 07:43-0400 Heart rate 66 /min Abbe Wood MD Work Phone: [facility] 11-23-2021 07:43-0400 Systolic blood pressure 157 mm[Hg] Abbe Wood MD Work Phone: [facility] 10-24-2021 08:56-0400 Body height 182.9 cm Alvin Ochoa [employer] Work Phone: [facility] 10-24-2021 08:56-0400 Body mass index (BMI) [Ratio] 23.72 kg/m2 Alvin Lafon [employer] MA[employer]GER Work Phone: [facility] 10-24-2021 08:56-0400 Body weight 79.33 kg Alvin Lafon [employer] MA[employer]GER Work Phone: [facility] 10-24-2021 08:56-0400 Diastolic blood pressure 84 mm[Hg] Alvin Lafon [employer] MANAGER Work Phone: [facility] 10-24-2021 08:56-0400 Heart rate 61 /min Alvin Lafon [employer] MA[employer]GER Work Phone: [facility] 10-24-2021 08:56-0400 SaO2% (BldA) [Mass fraction] 98 % Alvin Lafon [employer] MANAGER Work Phone: [facility] 10-24-2021 08:56-0400 Systolic blood pressure 144 mm[Hg] Alvin Lafon [employer] MA[employer]GER Work Phone: [facility] 08-16-2021 07:49-0400 Body mass index (BMI) [Ratio] 25.36 kg/m2 Abbe Wood MD Work Phone: [facility] 08-16-2021 07:49-0400 Body weight 84.82 kg Abbe Wood MD Work Phone: [facility] 08-16-2021 07:49-0400 Diastolic blood pressure 82 mm[Hg] Abbe Wood MD Work Phone: [facility] 08-16-2021 07:49-0400 Heart rate 72 /min Abbe Wood MD Work Phone: [facility] 08-16-2021 07:49-0400 Systolic blood pressure 169 mm[Hg] Abbe Wood MD Work Phone: [facility] 06-28-2021 11:31-0400 Diastolic blood pressure 76 mm[Hg] Dr. Dago Mcnamara Work Phone: [facility] Work Phone: 06-28-2021 11:31-0400 Heart rate 74 /min Dr. Dago Mcnamara Work Phone: [facility] Work Phone: 06-28-2021 11:31-0400 Systolic blood pressure 128 mm[Hg] Dr. Dago Mcnamara Work Phone: [facility] Work Phone: 06-28-2021 11:18-0400 Body height 182.[address] Dago Mcnamara Work Phone: [facility] Work Phone: 06-28-2021 11:18-0400 Body mass index (BMI) [Ratio] 25.2 kg/m2 Dr. Dago Mcnamara Work Phone: [facility] Work Phone: 06-28-2021 11:18-0400 Body weight 84.[address] Dago Mcnamara Work Phone: [facility] Work Phone: 06-28-2021 11:18-0400 Respiratory rate 16 /min Dr. Dago Mcnamara Work Phone: [facility] Work Phone: 06-28-2021 11:18-0400 SaO2% (BldA) [Mass fraction] 96 % Dr. Dago Mcnamara Work Phone: [facility] Work Phone: 05-17-2021 08:47-0400 Body height 182.9 cm Abbe Wood MD Work Phone: [facility] 05-17-2021 08:47-0400 Body mass index (BMI) [Ratio] 25.97 kg/m2 Abbe oWod MD Work Phone: [facility] 05-17-2021 08:47-0400 Body weight 86.86 kg Abbe Wood MD Work Phone: [facility] 05-17-2021 08:47-0400 Diastolic blood pressure 85 mm[Hg] Abbe Wood MD Work Phone: [facility] 05-17-2021 08:47-0400 Heart rate 76 /min Abbe Wood MD Work Phone: [facility] 05-17-2021 08:47-0400 SaO2% (BldA) [Mass fraction] 95 % Abbe Wood MD Work Phone: [facility] 05-17-2021 08:47-0400 Systolic blood pressure 162 mm[Hg] Abbe Wood MD Work Phone: [facility] 02-08-2021 08:05-0500 Body height 182.9 cm Abbe Wood MD Work Phone: [facility] 02-08-2021 08:05-0500 Body mass index (BMI) [Ratio] 26.22 kg/m2 Abbe Wood MD Work Phone: [facility] 02-08-2021 08:05-0500 Body weight 87.68 kg Abbe Wood MD Work Phone: [facility] 02-08-2021 08:05-0500 Diastolic blood pressure 92 mm[Hg] Abbe Wood MD Work Phone: [facility] 02-08-2021 08:05-0500 Heart rate 94 /min Abbe Wood MD Work Phone: [facility] 02-08-2021 08:05-0500 SaO2% (BldA) [Mass fraction] 98 % Abbe Wood MD Work Phone: [facility] 02-08-2021 08:05-0500 Systolic blood pressure 149 mm[Hg] Abbe Wood MD Work Phone: [facility] 10-21-2020 07:57-0400 Body height 182.9 cm Abbe Wood MD Work Phone: [facility] 10-21-2020 07:57-0400 Body mass index (BMI) [Ratio] 25.01 kg/m2 Abbe Wood MD Work Phone: [facility] 10-21-2020 07:57-0400 Body weight 83.64 kg Abbe Wood MD Work Phone: [facility] 10-21-2020 07:57-0400 Diastolic blood pressure 78 mm[Hg] Abbe Wood MD Work Phone: [facility] 10-21-2020 07:57-0400 Heart rate 63 /min Abbe Wood MD Work Phone: [facility] 10-21-2020 07:57-0400 SaO2% (BldA) [Mass fraction] 95 % Abbe Wood MD Work Phone: [facility] 10-21-2020 07:57-0400 Systolic blood pressure 142 mm[Hg] Abbe Wood MD Work Phone: [facility] 04-20-2020 08:32-0500 BMI (Body Mass Index) 27.1 kg/m2 Abbe Wood [facility] 04-20-2020 08:32-0500 Body weight 90.63 kg Abbe Wood [facility] 04-20-2020 08:32-0500 BP Diastolic 86 mm[Hg] Abbe Wood [facility] 04-20-2020 08:32-0500 BP Systolic 139 mm[Hg] Abbe Wood [facility] 04-20-2020 08:32-0500 Height 182.9 cm Abbe Wood [facility] 04-20-2020 08:32-0500 Pulse (Heart Rate) 80 /min Abbe Wood [facility] 04-20-2020 08:32-0500 Pulse Oximetry 94 % [facility] 04-05-2020 11:03-0500 Body Temperature 97.81 [degF] [facility] 04-05-2020 11:03-0500 BP Diastolic 75 mm[Hg] [facility] 04-05-2020 11:03-0500 BP Systolic 132 mm[Hg] [facility] 04-05-2020 11:03-0500 Pulse (Heart Rate) 74 /min [facility] 04-05-2020 11:03-0500 Pulse Oximetry 94 % [facility] 04-05-2020 11:03-0500 Respiratory Rate 16 /min [facility] 04-04-2020 18:21-0500 Height 182.9 cm [facility] 04-04-2020 08:49-0500 BMI (Body Mass Index) 28.14 kg/m2 [facility] 04-04-2020 08:49-0500 Body weight 94.1 kg [facility] 01-05-2020 09:30-0500 BMI (Body Mass Index) 28.21 kg/m2 [facility] 01-05-2020 09:30-0500 Body weight 94.35 kg [facility] 01-05-2020 09:30-0500 BP Diastolic 88 mm[Hg] [facility] 01-05-2020 09:30-0500 BP Systolic 149 mm[Hg] [facility] 01-05-2020 09:30-0500 Height 182.9 cm [facility] 01-05-2020 09:30-0500 Pulse (Heart Rate) 77 /min [facility] 01-05-2020 09:30-0500 Pulse Oximetry 96 % [facility] 01-05-2020 09:30-0500 Respiratory Rate 15 /min [facility] Encounters Encounter Date Encounter Type Care Provider Facility Start: 07-22-2024 End: 07-22-2024 Office outpatient visit 25 minutes Abbe Wood MD Work Phone: [facility] Comment on above: Viveros's esophagus with dysplasia (Primary Dx); Long-segment Viveros's esophagus; Status post laparoscopic Santos fundoplication Start: 07-22-2024 End: [facility] Start: 06-16-2024 End: 06-16-2024 ambulatory [facility] Start: 04-29-2024 End: 04-29-2024 Office outpatient visit 25 minutes Abbe Wood MD Work Phone: [facility] Comment on above: Long-segment Viveros 's esophagus (Primary Dx); Status post laparoscopic Santos fundoplication; Viveros's esophagus with dysplasia Start: 04-29-2024 End: 04-29-[facility] Start: 04-21-2024 End: 04-21-2024 ambulatory [facility] Facility:[facility] Start: 04-14-2024 End: 04-14-2024 ambulatory [facility] Start: 01-29-2024 End: 01-29-2024 Office outpatient visit 25 minutes Abbe Wood MD Work Phone: [facility] Comment on above: Long-segment Viveros 's esophagus (Primary Dx); Status post laparoscopic Santos fundoplication; Viveros's esophagus with dysplasia Start: 01-29-2024 End: 01-29-2024 [facility] Start: 01-20-2024 End: 01-20-2024 ambulatory [facility] Facility:[facility] Start: 01-13-2024 End: 01-13-2024 Orders Only Alvin Ochoa CNP Work Phone: [facility] Start: 09-24-2023 End: 09-24-2023 ambulatory [facility] Start: 08-14-2023 End: 08-14-2023 Office outpatient visit 25 minutes [facility] [facility] Comment on above: Long-segment Viveros 's esophagus (Primary Dx); Status post laparoscopic Santos fundoplication; Viveros's esophagus with dysplasia Start: 08-14-2023 End: 08-14-2023 ambulatory DAGO MCNAMARA [facility] Ambulato ry Start: 05-22-2023 End: 05-22-2023 Office outpatient visit 25 minutes Abbe Wood MD Work Phone: [facility] Comment on above: Long-segment Viveros 's esophagus (Primary Dx); Status post laparoscopic Santos fundoplication; Viveros's esophagus with dysplasia Start: 02-06-2023 Admission to [facility] Alvinanthony Ochoa TAX AUDIT MANAGER Work Phone: [facility] Comment on above: Long-segment Viveros 's esophagus (Primary Dx) Start: 01-18-2023 End: 01-18-2023 ambulatory [facility] Work Phone: Start: 01-18-2023 End: 01-18-2023 Patient encounter procedure [facility], Katey Gibbons [facility] Start: 12-05-2022 End: 12-05-2022 Office outpatient visit 25 minutes Abbe Wood MD Work Phone: [facility] Comment on above: Long-segment Viveros 's esophagus (Primary Dx); Status post laparoscopic Santos fundoplication Start: 11-19-2022 Orders Only Alvin Mojica TAX AUDIT MANAGER Work Phone: [facility] Start: 09-13-2022 End: 09-13-2022 Office outpatient visit 25 minutes Abbe Wood MD Work Phone: [facility] Comment on above: Viveros's esophagus with dysplasia (Primary Dx); Status post laparoscopic Santos fundoplication Start: 08-30-2022 Refill Alvin Mojica TAX AUDIT MANAGER Work Phone: [facility] Start: 07-31-2022 Orders Only Abbe cabello MD Work Phone: [facility] Comment on above: Viveros's esophagus with dysplasia (Primary Dx) Start: 06-20-2022 Orders Only Alvin Mojica TAX AUDIT MANAGER Work Phone: [facility] Comment on above: Viveros's esophagus with dysplasia (Primary Dx); Status post laparoscopic Santos fundoplication Start: 02-07-2022 End: 02-07-2022 Office outpatient visit 25 minutes Abbe Wood MD Work Phone: [facility] Comment on above: Viveros's esophagus with dysplasia (Primary Dx); Status post laparoscopic Santos fundoplication Start: 11-23-2021 End: 11-23-2021 Postop follow up visit related to original px Abbe Wood MD Work Phone: [facility] Comment on above: Status post laparosc opic Santos fundoplication (Primary Dx); Viveros's esophagus with dysplasia Start: 10-24-2021 Admission to [facility] Alvin Ochoa TAX AUDIT MANAGER Work Phone: [facility] Comment on above: Viveros's esophagus with dysplasia (Primary Dx) Start: 10-24-2021 End: 10-24-2021 Postop follow up visit related to original px Alvin Ochoa TAX AUDIT MANAGER Work Phone: [facility] Comment on above: Encounter for surgic al aftercare following surgery of digestive system (Primary Dx) Start: 10-05-2021 Preprocedural examin ation done Alvin Ochoa TAX AUDIT MANAGER Work Phone: [facility] Work Phone: Start: 08-16-2021 End: 08-16-2021 Office outpatient visit 25 minutes Abbe Wood MD Work Phone: [facility] Comment on above: Viveros's esophagus with dysplasia (Primary Dx); Status post laparoscopic Santos fundoplication; Slipped Santos fundoplication Start: 07-18-2021 Documentation procedure Mayuri glass RN [facility] Start: 07-11-2021 Admission to [facility] Alvin Fordejordin TAX AUDIT MANAGER Work Phone: [facility] Comment on above: Viveros's esophagus with dysplasia (Primary Dx) Start: 06-30-2021 Non-patient / Non-visit Dr. Gomez Work Phone: [facility] Start: 06-30-2021 End: 06-30-[address] Dago Mcnamara Work Phone: [facility] Start: 06-28-2021 End: 06-28-[address] Dago Mcnamara Work Phone: [facility] Start: 06-07-2021 End: 06-07-2021 Patient encounter procedure [facility]/Neurology Start: 05-17-2021 End: 05-17-2021 Office outpatient visit 25 minutes Abbe Wood MD Work Phone: [facility] Comment on above: Viveros's esophagus with dysplasia (Primary Dx); Status post laparoscopic Santos fundoplication; Slipped Santos fundoplication; Hiatal hernia Start: 02-08-2021 End: 02-08-2021 Office outpatient visit 15 minutes Abbe Wood MD Work Phone: [facility] Comment on above: Viveros's esophagus with dysplasia (Primary Dx); Status post laparoscopic Santos fundoplication; Hiatal hernia Start: 01-02-2021 Orders Only Abbe cabello MD Work Phone: [facility] Comment on above: Viveros's esophagus with dysplasia Start: 12-29-[facility]: [facility] Comment on above: History of Viveros's esophagus (Primary Dx) Start: 12-26-[facility] Work Phone: [facility] Comment on above: Elective surgery (Pr imary Dx) Start: 12-15-2020 Admission to [facility] TAX AUDIT MANAGER Work Phone: [facility] Comment on above: History of Viveros's esophagus (Primary Dx); Paraesophageal hiatal hernia Start: 10-21-2020 Orders Only Abbe cabello MD Work Phone: [facility] Comment on above: Elective surgery (Pr imary Dx) Start: 10-21-2020 End: 10-21-2020 Office outpatient visit 25 minutes Abbe Wood MD Work Phone: [facility] Comment on above: History of Viveros's esophagus (Primary Dx); Status post laparoscopic Santos fundoplication Start: 04-20-2020 End: 04-20-2020 Postop follow up visit related to original px Abbe Wood Work Phone: [facility] Comment on above: Postoperative follow -up (Primary Dx); Viveros's esophagus without dysplasia Start: 04-04-2020 End: 04-05-2020 Subsequent hospital visit by physician Abbe Wood Work Phone: [facility] Comment on above: Paraesophageal hiata l hernia Start: 03-31-2020 End: 03-31-2020 Orders Only Destiny Muñiz Work Phone: [facility] Start: 03-21-2020 Preprocedural examin ation done Abbe Wood MD Work Phone: [facility] Start: 03-08-2020 End: 03-08-2020 Orders Only Alvin Ochoa Work Phone: [facility] Comment on above: Elective surgery (Pr imary Dx) Start: 03-07-2020 End: 03-07-2020 Admission to day surgery Alvin Ochoa Work Phone: [facility] Comment on above: Paraesophageal hiata l hernia (Primary Dx) Start: 01-05-2020 End: 01-05-2020 Office outpatient new 45 minutes Dago Mcnamara Work Phone: [facility] Comment on above: Paraesophageal hiata l hernia (Primary Dx); Viveros's esophagus without dysplasia; Heartburn; Pharyngoesophageal dysphagia; Bloating Start: 12-30-2019 End: 12-30-2019 Subsequent hospital visit by physician Provider Not In System [facility] External Films Comment on above: Arrived Start: 06-13-2018 End: 06-13-2018 Patient encounter procedure Lb Lyle Facility:[facility] Start: 11-25-2017 End: 11-25-2017 Patient encounter procedure Arabella Oden Facility:[facility] Procedures Date Procedure Procedure Detail Performing Clinician Start: 04-04-2020 End: 04-04-2020 Esophagogastroduodenoscopy Abbe oro Work Phone: Start: 04-04-2020 End: 04-04-2020 REPAIR HERNIA HIATAL WITH SPHINCTER AUGMENTATION ROBOTIC XI Abbe Wood Work Phone: Start: 12-30-2019 Radiographic imaging procedure External Transcribed Plan of Treatment Date Care Activity Detail Author Start: 2025 Respiratory Syncytial Virus Immunization: Risk, 60-74 Risk, or 75+ (1 - 1-dose 75+ series) Respiratory Syncytial Virus Immunization: Risk, 60-74 Risk, or 75+ (1 - 1-dose 75+ series) [facility] Start: 10-12-2024 Influenza vaccination Influenza Vaccine (Season Ended) [facility] Start: 10-13-2023 COVID-19 Vaccine ( season) COVID-19 Vaccine ( season) [facility] Start: 10-13-2023 Influenza vaccination [facility] Start: 09-24-2023 End: 09-24-2023 Admission to same day surgery center 09/24/2023 7:20 AM EDT - 09/24/2023 7:50 AM EDT Surgery [facility] Endoscopy [address] [place] [address] Abbe Wood MD [address] [address] ESOPHAGOSCOPY WITH RFA [facility] Comment on above: ESOPHAGOSCOPY WITH RFA Start: 09-24-2023 End: 09-24-2023 ESOPHAGOSCOPY ESOPHAGOSCOPY Long-segment Viveros's esophagus Status post laparoscopic Santos fundoplication Viveros's esophagus with dysplasia 09/24/2023 7:20 AM EDT [facility] Start: 09-24-2023 Subsequent hospital visit by physician 09/24/2023 7:20 AM EDT Hospital Encounter [facility] Endoscopy [address] [place] [address] Abbe Wood MD [address] [address] [facility] Start: 07-09-2023 End: 07-09-2023 Admission to same day surgery center 07/09/2023 7:25 AM EDT - 07/09/2023 7:55 AM EDT [facility] [address] [facility] [place] [address] Abbe Wood MD [address] [address] ESOPHAGOSCOPY WITH RFA [facility] Comment on above: ESOPHAGOSCOPY WITH RFA Start: 07-09-2023 End: 07-09-2023 ESOPHAGOSCOPY ESOPHAGOSCOPY Long-segment Viveros's esophagus Status post laparoscopic Santos fundoplication Viveros's esophagus with dysplasia 07/09/2023 7:25 AM EDT [facility] Start: 07-09-2023 Subsequent hospital visit by physician 07/09/2023 7:25 AM EDT Hospital Encounter [facility] [address] [facility] [place] [place] [address] Abbe Wood MD [address] [address] [facility] Start: 04-16-2023 End: 04-16-2023 Admission to same day surgery center 04/16/2023 7:20 AM EST - 04/16/2023 7:50 AM EST Surgery [facility] Endoscopy [address] [place] [address] Abbe Wood MD [address] [address] ESOPHAGOSCOPY WITH RFA [facility] Comment on above: ESOPHAGOSCOPY WITH RFA Start: 04-16-2023 End: 04-16-2023 ESOPHAGOSCOPY ESOPHAGOSCOPY Long-segment Viveros's esophagus 04/16/2023 7:20 AM EST [facility] Start: 04-16-2023 Subsequent hospital visit by physician 04/16/2023 7:20 AM EST Hospital Encounter [facility] [address] [facility] [place] [place] [address] Abbe Wood MD [address] [facility] [address] [address] [facility] Start: 01-08-2023 Subsequent hospital visit by physician 01/08/2023 Hospital Encounter [facility] Endoscopy [address] [place] [address] bAbe Wood MD [address] [address] [facility] Start: 12-05-2022 End: 12-05-2022 Patient encounter procedure 12/05/2022 8:00 AM EDT Off ice Visit [facility] [address] [facility] Office Building, 5th [place] [address] Abbe Wood MD [address] [address] [facility] Start: 10-16-2022 End: 10-16-2022 Admission to same day surgery center 10/16/2022 7:25 AM EDT - 10/16/2022 7:55 AM EDT Surgery [facility] Endoscopy [address] [place] [address] Abbe Wood MD [address] [facility] [address] [address] ESOPHAGOSCOPY WITH RFA [facility] End[facility] Comment on above: ESOPHAGOSCOPY WITH RFA Start: 10-16-2022 End: 10-16-2022 ESOPHAGOSCOPY ESOPHAGOSCOPY Viveros's esophagus with dysplasia Status post laparoscopic Santos fundoplication 10/16/2022 7:25 AM EDT [facility] Start: 10-16-2022 Subsequent hospital visit by physician [facility] Start: 10-12-2022 COVID-19 Vaccine ( season) COVID-19 Vaccine () [facility] Start: 10-12-2022 Influenza vaccination Sequential Influenza Vaccine (#1) [facility] Start: 09-13-2022 End: 09-13-2022 Patient encounter procedure 09/13/2022 8:30 AM EDT Off ice Visit [facility] [address] [facility], 5th [place] [address] Abbe Wood MD [address] [facility] [address] [address] [facility] Start: 04-17-2022 Subsequent hospital visit by physician 04/17/2022 Hospital Encounter Abbe Wood MD [address] [facility] [address] [address] [facility] Start: 12-14-2021 End: 12-14-2021 ESOPHAGOSCOPY ESOPHAGOSCOPY Viveros's esophagus with dysplasia 12/14/2021 11:36 AM EDT [facility] Start: 11-23-2021 End: 11-23-2021 Patient encounter procedure 11/23/2021 Office Visit HeartAbbe Au MD [address] [address] [facility] Start: 10-12-2021 Influenza vaccination Sequential Influenza Vaccine (#1) [facility] Start: 08-30-2021 End: 08-30-2021 Patient encounter procedure 08/30/2021 Office Visit Abbe Willis MD [address] [address] [facility] Start: 08-16-2021 End: 08-16-2021 Patient encounter procedure 08/16/2021 Office Visit Heartburn Abbe Wood MD [address] [facility] [place] [address] [facility] Start: 07-18-2021 End: 07-18-2021 Admission to same day surgery center 07/18/2021 Surgery Abbe Wood MD [address] [place] [address] ESOPHAGOSCOPY WITH RFA [facility] Comment on above: ESOPHAGOSCOPY WITH RFA Start: 07-18-2021 Subsequent hospital visit by physician 07/18/2021 Hospital Encounter Abbe Wood MD [address] [facility] [place] [address] [facility] End[facility] Start: 07-18-2021 End: 07-18-2021 ESOPHAGOSCOPY [facility] Start: 07-04-2021 End: 07-04-2021 Admission to same day surgery [place] 07/04/2021 Surgery Abbe Wood MD [address] [facility] [place] [address] ESOPHAGOSCOPY WITH RFA [facility] Endoscopy Comment on above: ESOPHAGOSCOPY WITH RFA Start: 07-04-2021 End: 07-04-2021 ESOPHAGOSCOPY ESOPHAGOSCOPY Viveros's esophagus with dysplasia Status post laparoscopic Santos fundoplication Slipped Santos fundoplication Hiatal hernia 07/04/2021 7:25 AM EDT [facility] Start: 07-04-2021 Subsequent hospital visit by physician 07/04/2021 Hospital Encounter Abbe Wood MD [address] [facility] [place] [address] [facility] End[facility] Start: 05-01-2021 End: 05-01-2021 Admission to same day surgery center 05/01/2021 Surgery Abbe Wood MD [address] [place] [address] ESOPHAGOSCOPY WITH RFA [facility] Endoscopy Comment on above: ESOPHAGOSCOPY WITH RFA Start: 05-01-2021 End: 05-01-2021 ESOPHAGOSCOPY ESOPHAGOSCOPY Viveros's esophagus with dysplasia Status post laparoscopic Santos fundoplication Hiatal hernia 05/01/2021 1:55 PM EDT [facility] Start: 05-01-2021 Subsequent hospital visit by physician 05/01/2021 Hospital Encounter Abbe Wood MD [address] [place] [address] [facility] Start: 03-23-2021 Administration of herpes zoster vaccine Zoster Vaccines (2 of 2) [facility] Start: 03-15-2021 COVID-19 Vaccine (5 - Booster for Moderna series) COVID-19 Vaccine (5 - Booster for Moderna series) [facility] Start: 03-15-2021 COVID-19 Vaccine (5 - Booster) COVID-19 Vaccine (5 - Booster) [facility] Start: 03-15-2021 COVID-19 Vaccine (5 - Moderna series) COVID-19 Vaccine (5 - Moderna series) [facility] Start: 02-08-2021 End: 02-08-2021 Patient encounter procedure 02/08/2021 Office Visit Heartburn Abbe Wood MD [address] [place] [address] [facility] Start: 01-09-2021 Subsequent hospital visit by physician 01/09/2021 Hospital Encounter Abbe Wood MD [address] [place] [address] [facility] Per[facility] Start: 01-02-2021 End: 01-02-2021 Admission to same day surgery center 01/02/2021 Surgery Abbe Wood MD [address] [place] [address] ESOPHAGOSCOPY WITH RFA [facility] Endoscopy Comment on above: ESOPHAGOSCOPY WITH RFA Start: 01-02-2021 End: 01-02-2021 ESOPHAGOSCOPY ESOPHAGOSCOPY History of Viveros's esophagus 01/02/2021 10:55 AM [facility] Start: 01-02-2021 Subsequent hospital visit by physician 01/02/2021 Hospital Encounter Abbe Wood MD [address] [place] [address] [facility] Start: 01-02-2021 End: 01-02-2021 Admission to same day surgery center 01/02/2021 Surgery Abbe Wood MD [address] [facility] [place] [address] ROBOTIC REDO HIATAL HERNIA WITH MESH AND REDO SANTOS FUNDOPLICATION [facility] Periop Comment on above: ROBOTIC REDO HIATAL HERNIA WITH MESH AND REDO SANTOS FUNDOPLICATION Start: 01-02-2021 End: 01-02-2021 SANTOS FUNDOPLICATION ROBOTIC XI SANTOS FUNDOPLICATION ROBOTIC XI History of Viveros's esophagus Paraesophageal hiatal hernia 01/02/2021 7:20 AM [facility] Start: 01-02-2021 Subsequent hospital visit by physician 01/02/2021 Hospital Encounter Abbe Wood MD [address] [place] [address] [facility] Start: 12-28-2020 End: 12-28-2020 Patient encounter procedure 12/28/2020 Office Visit Heartburn Abbe Wood MD [address] [facility] [place] [address] [facility] Start: 12-27-2020 End: 12-27-2020 Admission to same day surgery center 12/27/2020 Surgery Abbe Wood MD [address] [facility] [place] [address] ESOPHAGOGASTRODUODENOSCOPY WITH BIOPSY [facility] Endoscopy Comment on above: ESOPHAGOGASTRODUODENOSCOPY WITH BIOPSY Start: 12-27-2020 End: 12-27-2020 Esophagogastroduodenoscopy ESOPHAGOGASTRODUODENOSCOPY Elective surgery 12/27/2020 12:55 PM EST [facility] Start: 12-27-2020 Subsequent hospital visit by physician 12/27/2020 Hospital Encounter Abbe Wood MD [address] [place] [address] [facility] End[facility] Start: 12-15-2020 End: 12-15-2020 Admission to same day surgery center 12/15/2020 Surgery Abbe Wood MD [address] [place] [address] ESOPHAGOGASTRODUODENOSCOPY WITH BIOPSY [facility] Endoscopy Comment on above: ESOPHAGOGASTRODUODENOSCOPY WITH BIOPSY Start: 12-15-2020 End: 12-15-2020 Esophagogastroduodenoscopy ESOPHAGOGASTRODUODENOSCOPY History of Viveros's esophagus Status post laparoscopic Santos fundoplication 12/15/2020 2:25 PM EDT [facility] Start: 12-15-2020 Subsequent hospital visit by physician 12/15/2020 Hospital Encounter Abbe Wood MD [address] [place] [address] [facility] Start: 12-15-2020 End: 12-15-2020 Esophagogastroduodenoscopy ESOPHAGOGASTRODUODENOSCOPY History of Viveros's esophagus Status post laparoscopic Santos fundoplication Slipped Santos fundoplication Hiatal hernia Esophagitis 12/15/2020 12:36 PM EDT [facility] Start: 11-11-2020 End: 11-11-2020 Admission to same day surgery center 11/11/2020 Surgery Abbe Wood MD [address] [place] [address] ESOPHAGOGASTRODUODENOSCOPY WITH BIOPSY [facility] End[facility] Comment on above: ESOPHAGOGASTRODUODENOSCOPY WITH BIOPSY Start: 11-11-2020 End: 11-11-2020 Esophagogastroduodenoscopy ESOPHAGOGASTRODUODENOSCOPY History of Viveros's esophagus Status post laparoscopic Santos fundoplication 11/11/2020 9:25 AM EDT [facility] Start: 11-11-2020 Subsequent hospital visit by physician 11/11/2020 Hospital Encounter Abbe Wood MD [address] [place] [address] [facility] Start: 11-10-2020 COVID-19 Vaccine (3 - Booster for Moderna series) COVID-19 Vaccine (3 - Booster for Moderna series) [facility] Start: 11-07-2020 End: 11-07-2020 Patient encounter procedure 11/07/2020 Office Visit Abbe Mathis MD [address] [facility] [place] [address] [facility] Start: 10-21-2020 End: 10-21-2020 Office Visit 10/21/2020 Office Visit Abbe Willis MD [address] [facility] [address] [place] [address] [phone] [facility] Start: 10-12-2020 Influenza vaccination Sequential Influenza Vaccine (#1) [facility] Start: 04-20-2020 End: 04-20-2020 Office Visit 04/20/2020 Office Visit Abbe Willis MD [address] [facility] [place] [address] [phone] [facility] Start: 04-04-2020 End: 04-04-2020 Hospital Encounter [facility] Per[facility] Comment on above: REPAIR HERNIA HIATAL WITH LINX SPHINCTER AUGMENTATION ROBOTIC XI Start: 03-31-2020 End: 03-31-2020 Office Visit 03/31/2020 Office Visit Lab Alvin Ochoa CNP [address] [place] [address] [phone] [facility] [place] Start: 03-21-2020 End: 03-21-2020 Office Visit 03/21/2020 Office Visit Pre-Admission Testing [facility] Preadmission Testing Start: 01-28-2020 End: 01-28-2020 Hospital Encounter [facility] Per[facility] Comment on above: Viveros's esophagus without dysplasia; Paraesophageal hiatal hernia; Heartburn; Pharyngoesophageal dysphagia; Bloating REPAIR HERNIA HIATAL WITH LINX SPHINCTER AUGMENTATION ROBOTIC XI Start: 01-24-2020 End: 01-24-2020 Office Visit 01/24/2020 Office Visit Lab Alvin Ochoa CNP [address] [place] [address] [phone] [facility] Start: 01-19-2020 End: 01-19-2020 Office Visit 01/19/2020 Office Visit Pre-Admission Testing [facility] Preadmission Testing Start: 01-06-2020 End: 01-06-2020 Office Visit 01/06/2020 Office Visit Heartburn Dago Mcnamara MD [address] [place] [address] [phone] Alvin Ochoa CNP [address] [place] [address] [phone] [facility] Start: 06-11-2017 Pneumococcal vaccination Pneumococcal Vaccine Age 65+ (2 of 2 - PCV13) [facility] Start: 06-11-2017 Pneumococcal Vaccine: Age 50+ (2 of 2 - PCV) Pneumococcal Vaccine: Age 50+ (2 of 2 - PCV) [facility] Start: 06-11-2017 Pneumococcal Vaccine: Age 65+ (2 - PCV) Pneumococcal Vaccine: Age 65+ (2 - PCV) [facility] Start: 06-11-2017 Pneumococcal Vaccine: Age 65+ (2 of 2 - PCV) Pneumococcal Vaccine: Age 65+ (2 of 2 - PCV) [facility] Start: 2015 Fall risk assessment Falls Risk Assessment [facility] Start: 2015 Pneumococcal Vaccine: Age 65+ (1 of 1 - PPSV23) Pneumococcal Vaccine: Age 65+ (1 of 1 - PPSV23) [facility] Start: 02-29-2000 Administration of herpes zoster vaccine Zoster Vaccines (1 of 2) [facility] Start: 02-29-2000 Screening for malignant neoplasm of colon [facility] Start: 02-29-1968 Hepatitis C antibody, confirmatory test Hepatitis C Screening [facility] Start: 02-29-1968 Hepatitis C screening Hepatitis C Screening [facility] Start: 1966 COVID-19 Vaccine (1 of 2) COVID-19 Vaccine (1 of 2) [facility] Start: 1962 Adolescent depression screening assessment Depression Screening (PHQ9) [facility] Start: 1962 COVID-19 Vaccine (1) COVID-19 Vaccine (1) [facility] Start: 1962 Depression screening using PHQ-9 (Patient Health Questionnaire 9) score [facility] Start: 1953 History and physical examination, annual for health maintenance Wellness Visit [facility] Start: 1953 Medicare Wellness Visit Medicare Wellness Visit [facility] Start: 1950 Fall risk assessment Falls Risk Assessment [facility] Start: 1950 Prostate specific antigen measurement PSA Level [facility] Start: 1950 Screening for malignant neoplasm of colon [facility] Start: 1950 Tetanus vaccination Tetanus: Every 10yrs [facility] End: 03-08-2021 Covid-19/Influenza Order Algorithm : COVID-19 Lab Test Only (OP in UTM) Covid-19/Influenza Order Algorithm : COVID-19 Lab Test Only (OP in UTM) Microbiology Routine Elective surgery 1 Occurrences starting 03/08/2020 until 03/08/2021 [facility] Comment on above: 1 Occurrences starting 03/08/2020 until 03/08/2021 ESOPHAGOSCOPY ESOPHAGOSCOPY Ba rrett's esophagus with dysplasia Status post laparoscopic Santos fundoplication Slipped Santos fundoplication [facility] ESOPHAGOSCOPY ESOPHAGOSCOPY Ba rrett's esophagus with dysplasia [facility] ESOPHAGOSCOPY ESOPHAGOSCOPY Ba rrett's esophagus with dysplasia Status post laparoscopic Santos fundoplication [facility] ESOPHAGOSCOPY [facility] Esophagoscopy flexib le transoral diagnostic ESOPHAGOSCOPY Long-segment Viveros's esophagus Status post laparoscopic Santos fundoplication Viveros's esophagus with dysplasia [facility] Esophagoscopy flexib le transoral diagnostic ESOPHAGOSCOPY Long-segment Viveros's esophagus Status post laparoscopic Santos fundoplication Viveros's esophagus with dysplasia [facility] Esophagoscopy flexib le transoral diagnostic ESOPHAGOSCOPY 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 Status post laparoscopic Santos fundoplication [facility] SANTOS FUNDOPLICATIO N ROBOTIC XI SANTOS FUNDOPLICATION ROBOTIC XI History of Viveros's esophagus Paraesophageal hiatal hernia [facility] Main OR End: 10-21-2021 SARS-CoV-2 (COVID-19) RdRp gene [Presence] in Respiratory specimen by BENJAMIN with probe detection COVID-19, Molecular Microbiology Routine Elective surgery 1 Occurrences starting 10/21/2020 until 10/21/2021 [facility] Work Phone: Comment on above: 1 Occurrences starting 10/21/2020 until 10/21/2021 Immunizations Immunization Date Immunization Notes Care Provider [facility] 01-15-2022 influenza virus vacc ine, unspecified formulation Abbe Wood MD Work Phone: [facility] 05-10-2020 Moderna SARS-CoV-2 Vaccination Abbe Wood MD Work Phone: [facility] 04-13-2020 Moderna SARS-CoV-2 Vaccination Abbe Wood MD Work Phone: [facility] Payers Date Payer Category Payer Self-pay [id number] 2020 Miscellaneous or Other [employer]ERC[employer] L [id number] 2020 Unknown [id number] 2017 Unknown 2015 Medicare 2015 Medicare [id number] 2015 Medicare [id number] 2013 Unknown [id number] 1950 Unknown [id number] 1950 Unknown [id number] [id number] .1950 Unknown [id number] [id number] .900 1950 Unknown [id number] [id number] .1950 Unknown [id number] 2.16.840.1.109169.3.579.2 .1950 Unknown [id number] 2.16.840.1.985843.3.579.2 .1950 Unknown [id number] 2.16.840.1.564093.3.579.2 .90 1950 Unknown [id number] 2.16.840.1.280770.3.579.2 .90 1950 Unknown [id number] 2.16.840.1.627805.3.579.2 .90 1950 Unknown [id number] 2.16.840.1.347908.3.579.2 .90 1950 Unknown [id number] 2.16.840.1.283338.3.579.2 .903 Unknown [id number] Unknown [facility] [place] [id number] Unknown [id number] Unknown [id number] .462 Unknown [id number] .462 Social History Date Type Detail [facility] Start: 1950 Sex Assigned At Not on file [facility] Start: 01-05-2020 End: 09-27-2021 Tobacco smoking status NHIS Never smoker [facility] Start: 01-05-2020 End: 09-27-2021 Tobacco use and exposure Never used [facility] Start: 05-04-2021 End: 06-19-2022 Exposure to SARS-CoV-2 (event) Not sure [facility] Start: 03-21-2020 End: 07-22-2024 Alcohol intake Current drinker of alcohol (finding) [facility] Start: 03-21-2020 Alcohol Comment OCCAS [facility] Start: 12-26-2020 History SDOH Alcohol Comment OCCAS - one drink 2 to 3 times a week [facility] Start: 02-13-2017 End: 02-08-2022 Tobacco smoking status KSIS Unknown if ever smoked [facility] Start: 1950 Sex Assigned At Male [facility] Start: 01-05-2020 End: 07-22-2024 Cigarette pack-years [facility] Start: 06-20-2022 End: 07-22-2024 Tobacco use panel [facility] Start: 01-05-2020 Gender identity Identifies as male gender (finding) [facility] Start: 01-05-2020 Sexual orientation Heterosexual (finding) [facility] Medical Equipment Procedure Code Equipment Code Equipment Origin al Text Equipment Identifier Dates Mesh 7 X 10cm Resorbable Phasix St - Sna [id number], [id number] FDA Start: 04-04-2020 Tacker 5mm Singl e Use Absorbatack 30x W/30 Tacks - Sna [id number])[id number], [id number] FDA Start: 04-04-2020 MESH,VENTLEX ST ,LG 8CM FDA Start: 01-31-2017 TACKER,SECURE STRAP FDA Start : 01-31-2017 MESH,VENTLEX ST ,LG 8CM FDA Start: 01-31-2017 TACKER,SECURE STRAP FDA Start : 01-31-2017 Mesh 7 X 10cm Resorbable Phasix St - Sna [id number])[id number], [id number] FDA Start: 10-09-2021 MESH,VENTLEX ST ,LG 8CM FDA Start: 01-31-2017 TACKER,SECURE STRAP FDA Start : 01-31-2017 Clinical Notes 10-21-2020 to 07-22-2024 Abbe Wood MD - 07/22/2024 8:44 AM Abbe Hutton MD - 04/29/2024 11:20 AM Abbe Hutton MD - 01/29/2024 8:11 AM Abbe Matamoros MD - 08/14/2023 8:19 AM EDT Note Date & Type Note Facility 07-22-2024 Note [facility] [address] ([address]) [facility] [address] [facility] [phone] Ary Forde is a 74 y.o. male being seen on 07/22/24 for Chief Complaint Patient presents with Follow-up HPI: The patient presents today for follow-up after undergoing RFA for his known history of long segment Viveros's. His last treatment was performed on 06/16/2024. At that time his Atlas classification was C0-M3. He underwent treatment with the Barrx 360 express catheter and balloon based endoscopic ablation system. Overall he is doing very well. He denies any heartburn, regurgitation, or meaningful esophageal dysphagia. 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 2018 [place] GERD (gastroesophageal reflux disease) Hiatal hernia 07/31/2022 small type-I sliding Hypercholesteremia Hypertension PONV (postoperative nausea and vomiting) Past Surgical History: Procedure Laterality Date ABDOMINAL HERNIA REPAIR 02/26/2014 EGD N/A 04/04/2020 Procedure: ESOPHAGOGASTRODUODENOSCOPY; Surgeon: Abbe Wood MD; Location: Main OR; Service: Gen-Robotics EGD N/A 12/15/2020 Procedure: ESOPHAGOGASTRODUODENOSCOPY WITH BIOPSY; Surgeon: Abbe Wood MD; Location: Endo; Service: General Surgery EGD N/A 12/27/2020 Procedure: ESOPHAGOSCOPY WITH BIOPSY; Surgeon: Abbe Wood MD; Location: Endo; Service: General Surgery ESOPHAGOGASTRODUODENOSCOPY 11/25/2017 Viveros's esophagus.....Thomae ESOPHAGOGASTRODUODENOSCOPY 12/21/2019 [place] ESOPHAGOSCOPY N/A 01/02/2021 Procedure: ESOPHAGOSCOPY WITH RFA; Surgeon: Abbe Wood MD; Location: [facility]; Service: Gastroenterology ESOPHAGOSCOPY N/A 07/04/2021 Procedure: ESOPHAGOSCOPY; Surgeon: Abbe Wood MD; Location: Endo; Service: Gastroenterology ESOPHAGOSCOPY N/A 07/18/2021 Procedure: ESOPHAGOSCOPY WITH RFA; Surgeon: Abbe Wood MD; Location: Endo; Service: Gastroenterology ESOPHAGOSCOPY N/A 05/01/2021 Procedure: ESOPHAGOSCOPY WITH RFA; Surgeon: Abbe Wood MD; Location: Endo; Service: Gastroenterology ESOPHAGOSCOPY N/A 09/12/2021 Procedure: ESOPHAGOSCOPY WITH RFA; Surgeon: Abbe Wood MD; Location: Endo; Service: Gastroenterology ESOPHAGOSCOPY N/A 12/14/2021 Procedure: ESOPHAGOSCOPY WITH RFA; Surgeon: Abbe Wood MD; Location: Endo; Service: Gastroenterology ESOPHAGOSCOPY N/A 04/17/2022 Procedure: ESOPHAGOSCOPY WITH RFA; Surgeon: Abbe Wood MD; Location: Endo; Service: Gastroenterology ESOPHAGOSCOPY N/A 06/19/2022 Procedure: ESOPHAGOSCOPY WITH biopsy; Surgeon: Abbe Wood MD; Location: Endo; Service: Gastroenterology ESOPHAGOSCOPY N/A 07/31/2022 Procedure: ESOPHAGOSCOPY WITH RFA; Surgeon: Abbe Wood MD; Location: Endo; Service: Gastroenterology ESOPHAGOSCOPY N/A 10/16/2022 Procedure: ESOPHAGOSCOPY WITH RFA; Surgeon: Abbe Wood MD; Location: Endo; Service: Gastroenterology ESOPHAGOSCOPY N/A 01/08/2023 Procedure: ESOPHAGOSCOPY WITH RFA; Surgeon: Abbe Wood MD; Location: Endo; Service: Gastroenterology ESOPHAGOSCOPY N/A 04/16/2023 Procedure: ESOPHAGOSCOPY WITH RFA; Surgeon: Abbe Wood MD; Location: Endo; Service: Gastroenterology ESOPHAGOSCOPY N/A 07/09/2023 Procedure: ESOPHAGOSCOPY WITH RFA; Surgeon: Abbe Wood MD; Location: Endo; Service: Gastroenterology ESOPHAGOSCOPY N/A 09/24/2023 Procedure: ESOPHAGOSCOPY WITH RFA; Surgeon: Abbe Wood MD; Location: Endo; Service: Gastroenterology ESOPHAGOSCOPY N/A 04/14/2024 Procedure: ESOPHAGOSCOPY WITH RFA; Surgeon: Abbe Wood MD; Location: Endo; Service: Gastroenterology; Laterality: N/A; ESOPHAGOSCOPY N/A 06/16/2024 Procedure: ESOPHAGOSCOPY WITH RFA; Surgeon: Abbe Wood MD; Location: Endo; Service: Gastroenterology; Laterality: N/A; HERNIA REPAIR Right 1998 Inguinal with mesh SANTOS FUNDOPLICATION ROBOT ASSISTED N/A 10/09/2021 Procedure: REDO HIATAL HERNIA REPAIR WITH YVES AND REDO SANTOS FUNDOPLICATION ROBOTIC XI; Surgeon: Abbe Wood MD; Location: Main OR; Service: Gen-Robotics REPAIR HERNIA HIATAL WITH SPHINCTER AUGMENTATION ROBOTIC XI N/A 04/04/2020 Procedure: REPAIR HERNIA HIATAL WITH mesh, lysis of adhesions and santos fundoplication ROBOTIC XI; Surgeon: Abbe Wood MD; Location: Main OR; Service: Gen-Rob[employer] Allergies[1] Current Medications[2] Social History[3] Family History Problem Relation Age of Onset Skin cancer Mother Heart disease Father Hypertension Father Hyperlipidemia Father REVIEW OF SYSTEMS Pertinent positives are listed in HPI, PMSH, SH, ALL, otherwise all systems reviewed below are negative. The following systems were reviewed: [x] Const (fevers, chills, wt. loss, fatigue) [x] CV (HTN, CP, HOPKINS, edema, DVT) [x] Resp (SOB, pleurisy, asthma, apnea) [x (more content not included)... [facility] 07-22-2024 History of Present illness Narrative [facility] [address] ([address]) [facility] [address] [facility] [phone] Ary Forde is a 74 y.o. male being seen on 07/22/24 for Chief Complaint Patient presents with Follow-up HPI: The patient presents today for follow-up after undergoing RFA for his known history of long segment Viveros's. His last treatment was performed on 06/16/2024. At that time his Atlas classification was C0-M3. He underwent treatment with the Barrx 360 express catheter and balloon based endoscopic ablation system. Overall he is doing very well. He denies any heartburn, regurgitation, or meaningful esophageal dysphagia. 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 2017 [place] GERD (gastroesophageal reflux disease) Hiatal hernia 07/31/2022 small type-I sliding Hypercholesteremia Hypertension PONV (postoperative nausea and vomiting) Past Surgical History: Procedure Laterality Date ABDOMINAL HERNIA REPAIR 02/26/2014 EGD N/A 04/04/2020 Procedure: ESOPHAGOGASTRODUODENOSCOPY; Surgeon: Abbe Wood MD; Location: [facility] OR; Service: Gen-Robotics EGD N/A 12/15/2020 Procedure: ESOPHAGOGASTRODUODENOSCOPY WITH BIOPSY; Surgeon: Abbe Wood MD; Location: Endo; Service: General Surgery EGD N/A 12/27/2020 Procedure: ESOPHAGOSCOPY WITH BIOPSY; Surgeon: Abbe Wood MD; Location: [facility]; Service: General Surgery ESOPHAGOGASTRODUODENOSCOPY 11/25/2017 Viveros's esophagus.....Thomae ESOPHAGOGASTRODUODENOSCOPY 12/21/2019 [place] ESOPHAGOSCOPY N/A 01/02/2021 Procedure: ESOPHAGOSCOPY WITH RFA; Surgeon: Abbe Wood MD; Location: [facility]; Service: Gastroenterology ESOPHAGOSCOPY N/A 07/04/2021 Procedure: ESOPHAGOSCOPY; Surgeon: Abbe Wood MD; Location: Endo; Service: Gastroenterology ESOPHAGOSCOPY N/A 07/18/2021 Procedure: ESOPHAGOSCOPY WITH RFA; Surgeon: Abbe Wood MD; Location: Endo; Service: Gastroenterology ESOPHAGOSCOPY N/A 05/01/2021 Procedure: ESOPHAGOSCOPY WITH RFA; Surgeon: Abbe Wood MD; Location: Endo; Service: Gastroenterology ESOPHAGOSCOPY N/A 09/12/2021 Procedure: ESOPHAGOSCOPY WITH RFA; Surgeon: Abbe Wood MD; Location: Endo; Service: Gastroenterology ESOPHAGOSCOPY N/A 12/14/2021 Procedure: ESOPHAGOSCOPY WITH RFA; Surgeon: Abbe Wood MD; Location: Endo; Service: Gastroenterology ESOPHAGOSCOPY N/A 04/17/2022 Procedure: ESOPHAGOSCOPY WITH RFA; Surgeon: Abbe Wood MD; Location: Endo; Service: Gastroenterology ESOPHAGOSCOPY N/A 06/19/2022 Procedure: ESOPHAGOSCOPY WITH biopsy; Surgeon: Abbe Wood MD; Location: Endo; Service: Gastroenterology ESOPHAGOSCOPY N/A 07/31/2022 Procedure: ESOPHAGOSCOPY WITH RFA; Surgeon: Abbe Wood MD; Location: Endo; Service: Gastroenterology ESOPHAGOSCOPY N/A 10/16/2022 Procedure: ESOPHAGOSCOPY WITH RFA; Surgeon: Abbe Wood MD; Location: Endo; Service: Gastroenterology ESOPHAGOSCOPY N/A 01/08/2023 Procedure: ESOPHAGOSCOPY WITH RFA; Surgeon: Abbe Wood MD; Location: Endo; Service: Gastroenterology ESOPHAGOSCOPY N/A 04/16/2023 Procedure: ESOPHAGOSCOPY WITH RFA; Surgeon: Abbe Wood MD; Location: Endo; Service: Gastroenterology ESOPHAGOSCOPY N/A 07/09/2023 Procedure: ESOPHAGOSCOPY WITH RFA; Surgeon: Abbe Wood MD; Location: Endo; Service: Gastroenterology ESOPHAGOSCOPY N/A 09/24/2023 Procedure: ESOPHAGOSCOPY WITH RFA; Surgeon: Abbe Wood MD; Location: Endo; Service: Gastroenterology ESOPHAGOSCOPY N/A 04/14/2024 Procedure: ESOPHAGOSCOPY WITH RFA; Surgeon: Abbe Wood MD; Location: Endo; Service: Gastroenterology; Laterality: N/A; ESOPHAGOSCOPY N/A 06/16/2024 Procedure: ESOPHAGOSCOPY WITH RFA; Surgeon: Abbe Wood MD; Location: [facility]; Service: Gastroenterology; Laterality: N/A; HERNIA REPAIR Right 1998 Inguinal with mesh SANTOS FUNDOPLICATION ROBOT ASSISTED N/A 10/09/2021 Procedure: REDO HIATAL HERNIA REPAIR WITH YVES AND REDO SANTOS FUNDOPLICATION ROBOTIC XI; Surgeon: Abbe Wood MD; Location: Main OR; Service: Gen-Robotics REPAIR HERNIA HIATAL WITH SPHINCTER AUGMENTATION ROBOTIC XI N/A 04/04/2020 Procedure: REPAIR HERNIA HIATAL WITH mesh, lysis of adhesions and santos fundoplication ROBOTIC XI; Surgeon: Abbe Wood MD; Location: Main OR; Service: Gen-Robotics Allergies[1] Current Medications[2] Social History[3] Family History Problem Relation Age of Onset Skin cancer Mother Heart disease Father Hypertension Father Hyperlipidemia Father REVIEW OF SYSTEMS Pertinent positives are listed in HPI, PMSH, SH, ALL, otherwise all systems reviewed below are negative. The following systems were reviewed: [x] Const (fevers, chills, wt. loss, fatigue) [x] CV (HTN, CP, HOPKINS, edema, DVT) [x] Resp (SOB, pleurisy, asthma, apnea) [x] GI (N, V, D, C, M, abd pain, appetite) [x] Musc (back pain, joint stiffness, gout) [x] Neuro (seizures, syncope, paralysis) [x] Psych (depression, anxiety) [x] Endo (hot/cold intol, polyuria[DM]) [x] Hem/Lymph (Anemia, LA, bleeding) [x] Allerg/Immun (seasonal, immuniz) [x] Eyes (diplopia, cataracts) [x] ENT/mouth (dysphagia, epistaxis) [x] (dysuria, hematuria) [x] Skin/Breast (moles, rash, lumps, nipple changes) Pertinent Positives: See HPI Pertinent Negatives: See HPI Physical Exam: BP (!) 162/84 Pulse 66 Ht 6' Wt 78.4 kg (172 lb 14.4 oz) SpO2 98% BMI 23.45 kg/m Body mass index is 23.45 kg/m . Constitutional: Well nourished, well developed person in no acute distress. Ambulates without difficulty. Head: Atraumatic and normocephalic. Face: Within normal limits. Eyes: Pupils equal, round, reactive to light. Sclera white. Mouth: Moist mucous membranes, normal dentation. Neck: supple, trachea midline,no masses, no incisions. Lymphatic: No cervical or inguinal lymphadenopathy. Heart: Regular rate and rhythm. Lungs: Clear to auscultation. Abdomen: Soft, non-distended, non-tender, no heptasplenomegaly, no umbilica, incisional, femoral, or inguinal hernias. Pelvis: Stable, non-tender. Skin: Warm, moist, normal skin turgor. Peripheral Vascular: Palapable carotid, radial, and femoral pulses, no peripheral edema. Neuropsych: Alert and oriented, judgement and insight intact. Normal Gait. Assessment: 1. Viveros's esophagus with dysplasia 2. Long-segment Viveros's esophagus 3. Status post laparoscopic Santos fundoplication No orders of the defined types were placed in this encounter. Plan: Schedule esophagoscopy with possible RFA versus surveillance biopsies Abeb Wood MD [1] No Known Allergies [2] Current Outpatient Medications Medication Sig Dispense Refill amLODIPine (NORVASC) 10 MG tablet Take 1 (one) tablet (10 mg total) by mouth every morning . cholecalciferol, vitamin D3, 1,000 unit tablet Take 1 (one) tablet (1,000 Units total) by mouth every morning . cyanocobalamin, vitamin B-12, 2,000 mcg Tab Take 1 (one) tablet (2,000 mcg total) by mouth every morning . Eliquis 5 mg Tab ezetimibe-simvastatin (VYTORIN) 10-20 mg per tablet Take 1 (one) tablet by mouth every night at bedtime . omeprazole (PRILOSEC) 40 MG capsule Take 1 (one) capsule (40 mg total) by mouth 2 (two) times a day . 180 capsule 3 sucralfate (CARAFATE) 1 gram tablet Take 1 (one) tablet (1 g total) by mouth 4 (four) times a day before meals . 360 tablet 3 sucralfate (Carafate) 100 mg/mL suspension Take 10 mL (1 g total) by mouth 4 (four) times a day . 400 mL 2 sucralfate (Carafate) 100 mg/mL suspension Take 10 mL (1 g total) by mouth 4 (four) times a day . 400 mL 2 No current facility-administered medications for this visit. [3] Social History Tobacco Use Smoking status: Never Smokeless tobacco: Never Vaping Use Vaping status: Never Used Substance Use Topics Alcohol use: Yes Alcohol/week: 1.0 - 3.0 standard drink of alcohol Types: 1 - 3 Drinks containing 0.5 oz of alcohol per week Drug use: Never documented in this encounter [facility] 06-16-2024 Note Progress Notes Abbe Wood MD (Physician) General Surgery Expand All Collapse All [facility] [address] (11) [facility] [address] [facility] [id number] Ary Forde is a 74 y.o. male being seen on 04/29/24 for Chief Complaint Patient presents with Follow-up ESOPHAGOSCOPY WITH RFA HPI: The patient presents today to schedule his next RFA. He has been undergoing treatment for a long segment Viveros's. He is previously undergone a Santos fundoplication. His last treatment was on 04/14/2024. At that time his Atlas classification was C1-M7. He did reasonably well after ablation with only minimal discomfort for couple of days. 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 2017 [place] GERD (gastroesophageal reflux disease) Hiatal hernia 07/31/2022 small type-I sliding Hypercholesteremia Hypertension PONV (postoperative nausea and vomiting) History - Past Surgical History Past Surgical History: Procedure Laterality Date ABDOMINAL HERNIA REPAIR 02/26/2014 EGD N/A 04/04/2020 Procedure: ESOPHAGOGASTRODUODENOSCOPY; Surgeon: Abbe Wood MD; Location: Main OR; Service: Gen-Robotics EGD N/A 12/15/2020 Procedure: ESOPHAGOGASTRODUODENOSCOPY WITH BIOPSY; Surgeon: Abbe Wood MD; Location: Endo; Service: General Surgery EGD N/A 12/27/2020 Procedure: ESOPHAGOSCOPY WITH BIOPSY; Surgeon: Abbe Wood MD; Location: Endo; Service: General Surgery ESOPHAGOGASTRODUODENOSCOPY 11/25/2017 Viveros's esophagus.....Thomae ESOPHAGOGASTRODUODENOSCOPY 12/21/2019 [place] ESOPHAGOSCOPY N/A 01/02/2021 Procedure: ESOPHAGOSCOPY WITH RFA; Surgeon: Abbe Wood MD; Location: Endo; Service: Gastroenterology ESOPHAGOSCOPY N/A 07/04/2021 Procedure: ESOPHAGOSCOPY; Surgeon: Abbe Wood MD; Location: Endo; Service: Gastroenterology ESOPHAGOSCOPY N/A 07/18/2021 Procedure: ESOPHAGOSCOPY WITH RFA; Surgeon: Abbe Wood MD; Location: Endo; Service: Gastroenterology ESOPHAGOSCOPY N/A 05/01/2021 Procedure: ESOPHAGOSCOPY WITH RFA; Surgeon: Abbe Wood MD; Location: Endo; Service: Gastroenterology ESOPHAGOSCOPY N/A 09/12/2021 Procedure: ESOPHAGOSCOPY WITH RFA; Surgeon: Abbe Wood MD; Location: Endo; Service: Gastroenterology ESOPHAGOSCOPY N/A 12/14/2021 Procedure: ESOPHAGOSCOPY WITH RFA; Surgeon: Abbe Wood MD; Location: Endo; Service: Gastroenterology ESOPHAGOSCOPY N/A 04/17/2022 Procedure: ESOPHAGOSCOPY WITH RFA; Surgeon: Abbe Wood MD; Location: Endo; Service: Gastroenterology ESOPHAGOSCOPY N/A 06/19/2022 Procedure: ESOPHAGOSCOPY WITH biopsy; Surgeon: Abbe Wood MD; Location: Endo; Service: Gastroenterology ESOPHAGOSCOPY N/A 07/31/2022 Procedure: ESOPHAGOSCOPY WITH RFA; Surgeon: Abbe Wood MD; Location: Endo; Service: Gastroenterology ESOPHAGOSCOPY N/A 10/16/2022 Procedure: ESOPHAGOSCOPY WITH RFA; Surgeon: Abbe Wood MD; Location: Endo; Service: Gastroenterology ESOPHAGOSCOPY N/A 01/08/2023 Procedure: ESOPHAGOSCOPY WITH RFA; Surgeon: Abbe Wood MD; Location: Endo; Service: Gastroenterology ESOPHAGOSCOPY N/A 04/16/2023 Procedure: ESOPHAGOSCOPY WITH RFA; Surgeon: Abbe Wood MD; Location: Endo; Service: Gastroenterology ESOPHAGOSCOPY N/A 07/09/2023 Procedure: ESOPHAGOSCOPY WITH RFA; Surgeon: Abbe Wood MD; Location: Endo; Service: Gastroenterology ESOPHAGOSCOPY N/A 09/24/2023 Procedure: ESOPHAGOSCOPY WITH RFA; Surgeon: Abbe Wood MD; Location: Endo; Service: Gastroenterology ESOPHAGOSCOPY N/A 04/14/2024 Procedure: ESOPHAGOSCOPY WITH RFA; Surgeon: Abbe Wood MD; Location: Endo; Service: Gastroenterology; Laterality: N/A; HERNIA REPAIR Right 1998 Inguinal with mesh SANTOS FUNDOPLICATION ROBOT ASSISTED N/A 10/09/2021 Procedure: REDO HIATAL HERNIA REPAIR WITH YVES AND REDO SANTOS FUNDOPLICATION ROBOTIC XI; Surgeon: Abbe Wood MD; Location: Main OR; Service: [employer] REPAIR HERNIA HIATAL WITH SPHINCTER AUGMENTATION ROBOTIC XI N/A 04/04/2020 Procedure: REPAIR HERNIA HIATAL WITH mesh, lysis of adhesions and santos fundoplication ROBOTIC XI; Surgeon: Abbe Wood MD; Location: Main OR; Service: [employer] [Allergies] [Allergies] No Known Allergies [Current Medications] [Current Medications] Current Outpatient Medications Medication Sig Dispense Refill amLODIPine (NORVASC) 10 MG tablet Take 1 (one) tablet (10 mg total) by mouth every morning . cholecalciferol, vitamin D3, 1,000 unit tablet Take 1 (one) tablet (1,000 Units total) by mouth every morning . cyanocobalamin, vitamin B-12, 2,000 mcg Tab Take 1 (one) tablet (2,000 mcg total) by mouth every morning . Eliquis 5 mg Tab ezetimibe-simvastatin (VYTORIN) 10-20 mg per (more content not included)... [facility] 04-29-2024 Note OPG [address] (11) [facility] [address] [facility] [id number] Ary Forde is a 74 y.o. male being seen on 04/29/24 for Chief Complaint Patient presents with Follow-up ESOPHAGOSCOPY WITH RFA HPI: The patient presents today to schedule his next RFA. He has been undergoing treatment for a long segment Viveros's. He is previously undergone a Santos fundoplication. His last treatment was on 04/14/2024. At that time his Atlas classification was C1-M7. He did reasonably well after ablation with only minimal discomfort for couple of days. 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 2017 [place] GERD (gastroesophageal reflux disease) Hiatal hernia 07/31/2022 small type-I sliding Hypercholesteremia Hypertension PONV (postoperative nausea and vomiting) Past Surgical History: Procedure Laterality Date ABDOMINAL HERNIA REPAIR 02/26/2014 EGD N/A 04/04/2020 Procedure: ESOPHAGOGASTRODUODENOSCOPY; Surgeon: Abbe Wood MD; Location: Main OR; Service: [employer] EGD N/A 12/15/2020 Procedure: ESOPHAGOGASTRODUODENOSCOPY WITH BIOPSY; Surgeon: Abbe Wood MD; Location: Endo; Service: General Surgery EGD N/A 12/27/2020 Procedure: ESOPHAGOSCOPY WITH BIOPSY; Surgeon: Abbe Wood MD; Location: Endo; Service: General Surgery ESOPHAGOGASTRODUODENOSCOPY 11/25/2017 Viveros's esophagus.....[place] ESOPHAGOGASTRODUODENOSCOPY 12/21/2019 [place] ESOPHAGOSCOPY N/A 01/02/2021 Procedure: ESOPHAGOSCOPY WITH RFA; Surgeon: Abbe Wood MD; Location: Endo; Service: Gastroenterology ESOPHAGOSCOPY N/A 07/04/2021 Procedure: ESOPHAGOSCOPY; Surgeon: Abbe Wood MD; Location: Endo; Service: Gastroenterology ESOPHAGOSCOPY N/A 07/18/2021 Procedure: ESOPHAGOSCOPY WITH RFA; Surgeon: Abbe Wood MD; Location: Endo; Service: Gastroenterology ESOPHAGOSCOPY N/A 05/01/2021 Procedure: ESOPHAGOSCOPY WITH RFA; Surgeon: Abbe Wood MD; Location: Endo; Service: Gastroenterology ESOPHAGOSCOPY N/A 09/12/2021 Procedure: ESOPHAGOSCOPY WITH RFA; Surgeon: Abbe Wood MD; Location: Endo; Service: Gastroenterology ESOPHAGOSCOPY N/A 12/14/2021 Procedure: ESOPHAGOSCOPY WITH RFA; Surgeon: Abbe Wood MD; Location: Endo; Service: Gastroenterology ESOPHAGOSCOPY N/A 04/17/2022 Procedure: ESOPHAGOSCOPY WITH RFA; Surgeon: Abbe Wood MD; Location: Endo; Service: Gastroenterology ESOPHAGOSCOPY N/A 06/19/2022 Procedure: ESOPHAGOSCOPY WITH biopsy; Surgeon: Abbe Wood MD; Location: Endo; Service: Gastroenterology ESOPHAGOSCOPY N/A 07/31/2022 Procedure: ESOPHAGOSCOPY WITH RFA; Surgeon: Abbe Wood MD; Location: Endo; Service: Gastroenterology ESOPHAGOSCOPY N/A 10/16/2022 Procedure: ESOPHAGOSCOPY WITH RFA; Surgeon: Abbe Wood MD; Location: Endo; Service: Gastroenterology ESOPHAGOSCOPY N/A 01/08/2023 Procedure: ESOPHAGOSCOPY WITH RFA; Surgeon: Abbe Wood MD; Location: Endo; Service: Gastroenterology ESOPHAGOSCOPY N/A 04/16/2023 Procedure: ESOPHAGOSCOPY WITH RFA; Surgeon: Abbe Wood MD; Location: Endo; Service: Gastroenterology ESOPHAGOSCOPY N/A 07/09/2023 Procedure: ESOPHAGOSCOPY WITH RFA; Surgeon: Abbe Wood MD; Location: Endo; Service: Gastroenterology ESOPHAGOSCOPY N/A 09/24/2023 Procedure: ESOPHAGOSCOPY WITH RFA; Surgeon: Abbe Wood MD; Location: Endo; Service: Gastroenterology ESOPHAGOSCOPY N/A 04/14/2024 Procedure: ESOPHAGOSCOPY WITH RFA; Surgeon: Abbe Wood MD; Location: Endo; Service: Gastroenterology; Laterality: N/A; HERNIA REPAIR Right 1998 Inguinal with mesh SANTOS FUNDOPLICATION ROBOT ASSISTED N/A 10/09/2021 Procedure: REDO HIATAL HERNIA REPAIR WITH YVES AND REDO SANTOS FUNDOPLICATION ROBOTIC XI; Surgeon: Abbe Wood MD; Location: Main OR; Service: [employer] REPAIR HERNIA HIATAL WITH SPHINCTER AUGMENTATION ROBOTIC XI N/A 04/04/2020 Procedure: REPAIR HERNIA HIATAL WITH mesh, lysis of adhesions and santos fundoplication ROBOTIC XI; Surgeon: Abbe Wood MD; Location: Main OR; Service: [employer] Allergies[1] Current Medications[2] Social History[3] Family History Problem Relation Age of Onset Skin cancer Mother Heart disease Father Hypertension Father Hyperlipidemia Father REVIEW OF SYSTEMS Pertinent positives are listed in HPI, PMSH, SH, ALL, otherwise all systems reviewed below are negative. The following systems were reviewed: [x] Const (fevers, chills, wt. loss, fatigue) [x] CV (HTN, CP, HOPKINS, edema, DVT) [x] Resp (SOB, pleurisy, asthma, apnea) [x] GI (N, V, D, C, M, abd pain, appetite) [x] Musc (back pain, joint stiffness, gout) [x] Neuro (seizures, syncope, paralysis) [x] Psych (depression, anxiety) [x] Endo (hot/cold intol, polyuria[DM]) [x] Hem/Lym (more content not included)... [facility] 04-29-2024 History of Present illness Narrative OPG [address] (11) [facility] [address] [facility] [id number] Ary Forde is a 74 y.o. male being seen on 04/29/24 for Chief Complaint Patient presents with Follow-up ESOPHAGOSCOPY WITH RFA HPI: The patient presents today to schedule his next RFA. He has been undergoing treatment for a long segment Viveros's. He is previously undergone a Santos fundoplication. His last treatment was on 04/14/2024. At that time his Atlas classification was C1-M7. He did reasonably well after ablation with only minimal discomfort for couple of days. 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 2017 [place] GERD (gastroesophageal reflux disease) Hiatal hernia 07/31/2022 small type-I sliding Hypercholesteremia Hypertension PONV (postoperative nausea and vomiting) Past Surgical History: Procedure Laterality Date ABDOMINAL HERNIA REPAIR 02/26/2014 EGD N/A 04/04/2020 Procedure: ESOPHAGOGASTRODUODENOSCOPY; Surgeon: Abbe Wood MD; Location: Main OR; Service: [employer] EGD N/A 12/15/2020 Procedure: ESOPHAGOGASTRODUODENOSCOPY WITH BIOPSY; Surgeon: Abbe Wood MD; Location: Endo; Service: General Surgery EGD N/A 12/27/2020 Procedure: ESOPHAGOSCOPY WITH BIOPSY; Surgeon: Abbe Wood MD; Location: Endo; Service: General Surgery ESOPHAGOGASTRODUODENOSCOPY 11/25/2017 Viveros's esophagus.....[place] ESOPHAGOGASTRODUODENOSCOPY 12/21/2019 [place] ESOPHAGOSCOPY N/A 01/02/2021 Procedure: ESOPHAGOSCOPY WITH RFA; Surgeon: Abbe Wood MD; Location: Endo; Service: Gastroenterology ESOPHAGOSCOPY N/A 07/04/2021 Procedure: ESOPHAGOSCOPY; Surgeon: Abbe Wood MD; Location: Endo; Service: Gastroenterology ESOPHAGOSCOPY N/A 07/18/2021 Procedure: ESOPHAGOSCOPY WITH RFA; Surgeon: Abbe Wood MD; Location: Endo; Service: Gastroenterology ESOPHAGOSCOPY N/A 05/01/2021 Procedure: ESOPHAGOSCOPY WITH RFA; Surgeon: Abbe Wood MD; Location: Endo; Service: Gastroenterology ESOPHAGOSCOPY N/A 09/12/2021 Procedure: ESOPHAGOSCOPY WITH RFA; Surgeon: Abbe Wood MD; Location: Endo; Service: Gastroenterology ESOPHAGOSCOPY N/A 12/14/2021 Procedure: ESOPHAGOSCOPY WITH RFA; Surgeon: Abbe Wood MD; Location: Endo; Service: Gastroenterology ESOPHAGOSCOPY N/A 04/17/2022 Procedure: ESOPHAGOSCOPY WITH RFA; Surgeon: Abbe Wood MD; Location: Endo; Service: Gastroenterology ESOPHAGOSCOPY N/A 06/19/2022 Procedure: ESOPHAGOSCOPY WITH biopsy; Surgeon: Abbe Wood MD; Location: Endo; Service: Gastroenterology ESOPHAGOSCOPY N/A 07/31/2022 Procedure: ESOPHAGOSCOPY WITH RFA; Surgeon: Abbe Wood MD; Location: Endo; Service: Gastroenterology ESOPHAGOSCOPY N/A 10/16/2022 Procedure: ESOPHAGOSCOPY WITH RFA; Surgeon: Abbe Wood MD; Location: Endo; Service: Gastroenterology ESOPHAGOSCOPY N/A 01/08/2023 Procedure: ESOPHAGOSCOPY WITH RFA; Surgeon: Abbe Wood MD; Location: Endo; Service: Gastroenterology ESOPHAGOSCOPY N/A 04/16/2023 Procedure: ESOPHAGOSCOPY WITH RFA; Surgeon: Abbe Wood MD; Location: Endo; Service: Gastroenterology ESOPHAGOSCOPY N/A 07/09/2023 Procedure: ESOPHAGOSCOPY WITH RFA; Surgeon: Abbe Wood MD; Location: Endo; Service: Gastroenterology ESOPHAGOSCOPY N/A 09/24/2023 Procedure: ESOPHAGOSCOPY WITH RFA; Surgeon: Abbe Wood MD; Location: Endo; Service: Gastroenterology ESOPHAGOSCOPY N/A 04/14/2024 Procedure: ESOPHAGOSCOPY WITH RFA; Surgeon: Abbe Wood MD; Location: [facility]; Service: Gastroenterology; Laterality: N/A; HERNIA REPAIR Right 1998 Inguinal with mesh SANTOS FUNDOPLICATION ROBOT ASSISTED N/A 10/09/2021 Procedure: REDO HIATAL HERNIA REPAIR WITH YVES AND REDO SANTOS FUNDOPLICATION ROBOTIC XI; Surgeon: Abbe Wood MD; Location: Main OR; Service: [employer] REPAIR HERNIA HIATAL WITH SPHINCTER AUGMENTATION ROBOTIC XI N/A 04/04/2020 Procedure: REPAIR HERNIA HIATAL WITH mesh, lysis of adhesions and santos fundoplication ROBOTIC XI; Surgeon: Abbe Wood MD; Location: Main OR; Service: [employer] Allergies[1] Current Medications[2] Social History[3] Family History Problem Relation Age of Onset Skin cancer Mother Heart disease Father Hypertension Father Hyperlipidemia Father REVIEW OF SYSTEMS Pertinent positives are listed in HPI, PMSH, SH, ALL, otherwise all systems reviewed below are negative. The following systems were reviewed: [x] Const (fevers, chills, wt. loss, fatigue) [x] CV (HTN, CP, HOPKINS, edema, DVT) [x] Resp (SOB, pleurisy, asthma, apnea) [x] GI (N, V, D, C, M, abd pain, appetite) [x] Musc (back pain, joint stiffness, gout) [x] Neuro (seizures, syncope, paralysis) [x] Psych (depression, anxiety) [x] Endo (hot/cold intol, polyuria[DM]) [x] Hem/Lymph (Anemia, LA, bleeding) [x] Allerg/Immun (seasonal, immuniz) [x] Eyes (diplopia, cataracts) [x] ENT/mouth (dysphagia, epistaxis) [x] (dysuria, hematuria) [x] Skin/Breast (moles, rash, lumps, nipple changes) Pertinent Positives: See HPI Pertinent Negatives: See HPI Physical Exam: BP (!) 152/84 Pulse (!) 56 Ht 5' 11 Wt 78.6 kg (173 lb 3.2 oz) SpO2 96% BMI 24.16 kg/m Body mass index is 24.16 kg/m . Constitutional: Well nourished, well developed person in no acute distress. Ambulates without difficulty. Head: Atraumatic and normocephalic. Face: Within normal limits. Eyes: Pupils equal, round, reactive to light. Sclera white. Mouth: Moist mucous membranes, normal dentation. Neck: supple, trachea midline,no masses, no incisions. Lymphatic: No cervical or inguinal lymphadenopathy. Heart: Regular rate and rhythm. Lungs: Clear to auscultation. Abdomen: Soft, non-distended, non-tender, no heptasplenomegaly, no umbilica, incisional, femoral, or inguinal hernias. Pelvis: Stable, non-tender. Skin: Warm, moist, normal skin turgor. Peripheral Vascular: Palapable carotid, radial, and femoral pulses, no peripheral edema. Neuropsych: Alert and oriented, judgement and insight intact. Normal Gait. Assessment: 1. Long-segment Viveros's esophagus 2. Status post laparoscopic Santos fundoplication 3. Viveros's esophagus with dysplasia No orders of the defined types were placed in this encounter. Plan: Schedule esophagoscopy with KALIE Wood MD [1] No Known Allergies [2] Current Outpatient Medications Medication Sig Dispense Refill amLODIPine (NORVASC) 10 MG tablet Take 1 (one) tablet (10 mg total) by mouth every morning . cholecalciferol, vitamin D3, 1,000 unit tablet Take 1 (one) tablet (1,000 Units total) by mouth every morning . cyanocobalamin, vitamin B-12, 2,000 mcg Tab Take 1 (one) tablet (2,000 mcg total) by mouth every morning . Eliquis 5 mg Tab ezetimibe-simvastatin (VYTORIN) 10-20 mg per tablet Take 1 (one) tablet by mouth every night at bedtime . omeprazole (PRILOSEC) 40 MG capsule Take 1 (one) capsule (40 mg total) by mouth 2 (two) times a day . 180 capsule 3 sucralfate (CARAFATE) 1 gram tablet Take 1 (one) tablet (1 g total) by mouth 4 (four) times a day before meals . 360 tablet 3 sucralfate (Carafate) 100 mg/mL suspension Take 10 mL (1 g total) by mouth 4 (four) times a day . 400 mL 2 No current facility-administered medications for this visit. [3] Social History Tobacco Use Smoking status: Never Smokeless tobacco: Never Vaping Use Vaping status: Never Used Substance Use Topics Alcohol use: Yes Alcohol/week: 1.0 - 3.0 standard drink of alcohol Types: 1 - 3 Drinks containing 0.5 oz of alcohol per week Drug use: Never documented in this encounter [facility] 01-29-2024 Note OPG [address] (11) [facility] [address] [facility] [id number] Ary Forde is a 73 y.o. male being seen on 01/29/24 for Chief Complaint Patient presents with Follow-up RFA HPI: The patient presents today to schedule his next RFA. 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 He is also undergoing a Santos fundoplication. Today he denies heartburn, regurgitation, or esophageal dysphagia. He and his are getting ready to leave for [place] for 2 months. 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 2017 [place] GERD (gastroesophageal reflux disease) Hiatal hernia 07/31/2022 small type-I sliding Hypercholesteremia Hypertension PONV (postoperative nausea and vomiting) Past Surgical History: Procedure Laterality Date ABDOMINAL HERNIA REPAIR 02/26/2014 EGD N/A 04/04/2020 Procedure: ESOPHAGOGASTRODUODENOSCOPY; Surgeon: Abbe Wood MD; Location: Main OR; Service: [employer] EGD N/A 12/15/2020 Procedure: ESOPHAGOGASTRODUODENOSCOPY WITH BIOPSY; Surgeon: Abbe Wood MD; Location: Endo; Service: General Surgery EGD N/A 12/27/2020 Procedure: ESOPHAGOSCOPY WITH BIOPSY; Surgeon: Abbe Wood MD; Location: [facility]; Service: General Surgery ESOPHAGOGASTRODUODENOSCOPY 11/25/2017 Viveros's esophagus.....[place] ESOPHAGOGASTRODUODENOSCOPY 12/21/2019 [place] ESOPHAGOSCOPY N/A 01/02/2021 Procedure: ESOPHAGOSCOPY WITH RFA; Surgeon: Abbe Wood MD; Location: Endo; Service: Gastroenterology ESOPHAGOSCOPY N/A 07/04/2021 Procedure: ESOPHAGOSCOPY; Surgeon: Abbe Wood MD; Location: Endo; Service: Gastroenterology ESOPHAGOSCOPY N/A 07/18/2021 Procedure: ESOPHAGOSCOPY WITH RFA; Surgeon: Abbe Wood MD; Location: Endo; Service: Gastroenterology ESOPHAGOSCOPY N/A 05/01/2021 Procedure: ESOPHAGOSCOPY WITH RFA; Surgeon: Abbe Wood MD; Location: Endo; Service: Gastroenterology ESOPHAGOSCOPY N/A 09/12/2021 Procedure: ESOPHAGOSCOPY WITH RFA; Surgeon: Abbe Wood MD; Location: Endo; Service: Gastroenterology ESOPHAGOSCOPY N/A 12/14/2021 Procedure: ESOPHAGOSCOPY WITH RFA; Surgeon: Abbe Wood MD; Location: Endo; Service: Gastroenterology ESOPHAGOSCOPY N/A 04/17/2022 Procedure: ESOPHAGOSCOPY WITH RFA; Surgeon: Abbe Wood MD; Location: Endo; Service: Gastroenterology ESOPHAGOSCOPY N/A 06/19/2022 Procedure: ESOPHAGOSCOPY WITH biopsy; Surgeon: bAbe Wood MD; Location: Endo; Service: Gastroenterology ESOPHAGOSCOPY N/A 07/31/2022 Procedure: ESOPHAGOSCOPY WITH RFA; Surgeon: Abbe Wood MD; Location: Endo; Service: Gastroenterology ESOPHAGOSCOPY N/A 10/16/2022 Procedure: ESOPHAGOSCOPY WITH RFA; Surgeon: Abbe Wood MD; Location: Endo; Service: Gastroenterology ESOPHAGOSCOPY N/A 01/08/2023 Procedure: ESOPHAGOSCOPY WITH RFA; Surgeon: Abbe Wood MD; Location: Endo; Service: Gastroenterology ESOPHAGOSCOPY N/A 04/16/2023 Procedure: ESOPHAGOSCOPY WITH RFA; Surgeon: Abbe Wood MD; Location: Endo; Service: Gastroenterology ESOPHAGOSCOPY N/A 07/09/2023 Procedure: ESOPHAGOSCOPY WITH RFA; Surgeon: Abbe Wood MD; Location: Endo; Service: Gastroenterology ESOPHAGOSCOPY N/A 09/24/2023 Procedure: ESOPHAGOSCOPY WITH RFA; Surgeon: Abbe Wood MD; Location: Endo; Service: Gastroenterology HERNIA REPAIR Right 1998 Inguinal with mesh SANTOS FUNDOPLICATION ROBOT ASSISTED N/A 10/09/2021 Procedure: REDO HIATAL HERNIA REPAIR WITH YVES AND REDO SANTOS FUNDOPLICATION ROBOTIC XI; Surgeon: Abbe Wood MD; Location: Main OR; Service: [employer] REPAIR HERNIA HIATAL WITH SPHINCTER AUGMENTATION ROBOTIC XI N/A 04/04/2020 Procedure: REPAIR HERNIA HIATAL WITH mesh, lysis of adhesions and santos fundoplication ROBOTIC XI; Surgeon: Abbe Wood MD; Location: Main OR; Service: [employer] No Known Allergies Current Outpatient Medications Medication Sig Dispense Refill amLODIPine (NORVASC) 10 MG tablet Take 1 (one) tablet (10 mg total) by mouth every morning . cholecalciferol, vitamin D3, 1,000 unit tablet Take 1 (one) tablet (1,000 Units total) by mouth every morning . cyanocobalamin, vitamin B-12, 2,000 mcg Tab Take 1 (one) tablet (2,000 mcg total) by mouth every morning . Eliquis 5 mg Tab ezetimibe-simvastatin (VYTORIN) 10-20 mg per tablet Take 1 (one) tablet by mouth every night at bedtime . omeprazole (PRILOSEC) 40 MG capsule Take 1 (one) capsule (40 mg total) by mouth 2 (two) times a day . 180 capsule 3 sucralfate (CARAFATE) 1 gram tablet Take 1 (one) tablet (1 g total) by mouth 4 (four) times a day before meals . 360 tablet 3 No current facility-administered medications for this visit. Social History Tobacco Use Smoking status: Never Smokeless tobacco: Never (more content not included)... [facility] 01-29-2024 History of Present illness Narrative O[facility] [address] (11) [facility] [address] [facility] [phone] Ary Forde is a 73 y.o. male being seen on 01/29/24 for Chief Complaint Patient presents with Follow-up RFA HPI: The patient presents today to schedule his next RFA. 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 He is also undergoing a Santos fundoplication. Today he denies heartburn, regurgitation, or esophageal dysphagia. He and his are getting ready to leave for [place] for 2 months. 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 2017 [place] GERD (gastroesophageal reflux disease) Hiatal hernia 07/31/2022 small type-I sliding Hypercholesteremia Hypertension PONV (postoperative nausea and vomiting) Past Surgical History: Procedure Laterality Date ABDOMINAL HERNIA REPAIR 02/26/2014 EGD N/A 04/04/2020 Procedure: ESOPHAGOGASTRODUODENOSCOPY; Surgeon: Abbe Wood MD; Location: Main OR; Service: [employer] EGD N/A 12/15/2020 Procedure: ESOPHAGOGASTRODUODENOSCOPY WITH BIOPSY; Surgeon: Abbe Wood MD; Location: Endo; Service: General Surgery EGD N/A 12/27/2020 Procedure: ESOPHAGOSCOPY WITH BIOPSY; Surgeon: Abbe Wood MD; Location: Endo; Service: General Surgery ESOPHAGOGASTRODUODENOSCOPY 11/25/2017 Viveros's esophagus.....[place] ESOPHAGOGASTRODUODENOSCOPY 12/21/2019 [place] ESOPHAGOSCOPY N/A 01/02/2021 Procedure: ESOPHAGOSCOPY WITH RFA; Surgeon: Abbe Wood MD; Location: Endo; Service: Gastroenterology ESOPHAGOSCOPY N/A 07/04/2021 Procedure: ESOPHAGOSCOPY; Surgeon: Abbe Wood MD; Location: Endo; Service: Gastroenterology ESOPHAGOSCOPY N/A 07/18/2021 Procedure: ESOPHAGOSCOPY WITH RFA; Surgeon: Abbe Wood MD; Location: Endo; Service: Gastroenterology ESOPHAGOSCOPY N/A 05/01/2021 Procedure: ESOPHAGOSCOPY WITH RFA; Surgeon: Abbe Wood MD; Location: Endo; Service: Gastroenterology ESOPHAGOSCOPY N/A 09/12/2021 Procedure: ESOPHAGOSCOPY WITH RFA; Surgeon: Abbe Wood MD; Location: Endo; Service: Gastroenterology ESOPHAGOSCOPY N/A 12/14/2021 Procedure: ESOPHAGOSCOPY WITH RFA; Surgeon: Abbe Wood MD; Location: Endo; Service: Gastroenterology ESOPHAGOSCOPY N/A 04/17/2022 Procedure: ESOPHAGOSCOPY WITH RFA; Surgeon: Abbe Wood MD; Location: Endo; Service: Gastroenterology ESOPHAGOSCOPY N/A 06/19/2022 Procedure: ESOPHAGOSCOPY WITH biopsy; Surgeon: Abbe Wood MD; Location: Endo; Service: Gastroenterology ESOPHAGOSCOPY N/A 07/31/2022 Procedure: ESOPHAGOSCOPY WITH RFA; Surgeon: Abbe Wood MD; Location: Endo; Service: Gastroenterology ESOPHAGOSCOPY N/A 10/16/2022 Procedure: ESOPHAGOSCOPY WITH RFA; Surgeon: Abbe Wood MD; Location: Endo; Service: Gastroenterology ESOPHAGOSCOPY N/A 01/08/2023 Procedure: ESOPHAGOSCOPY WITH RFA; Surgeon: Abbe Wood MD; Location: Endo; Service: Gastroenterology ESOPHAGOSCOPY N/A 04/16/2023 Procedure: ESOPHAGOSCOPY WITH RFA; Surgeon: Abbe Wood MD; Location: Endo; Service: Gastroenterology ESOPHAGOSCOPY N/A 07/09/2023 Procedure: ESOPHAGOSCOPY WITH RFA; Surgeon: Abbe Wood MD; Location: Endo; Service: Gastroenterology ESOPHAGOSCOPY N/A 09/24/2023 Procedure: ESOPHAGOSCOPY WITH RFA; Surgeon: Abbe Wood MD; Location: Endo; Service: Gastroenterology HERNIA REPAIR Right 1998 Inguinal with mesh SANTOS FUNDOPLICATION ROBOT ASSISTED N/A 10/09/2021 Procedure: REDO HIATAL HERNIA REPAIR WITH YVES AND REDO SANTOS FUNDOPLICATION ROBOTIC XI; Surgeon: Abbe Wood MD; Location: Main OR; Service: [employer] REPAIR HERNIA HIATAL WITH SPHINCTER AUGMENTATION ROBOTIC XI N/A 04/04/2020 Procedure: REPAIR HERNIA HIATAL WITH mesh, lysis of adhesions and santos fundoplication ROBOTIC XI; Surgeon: Abbe Wood MD; Location: Main OR; Service: [employer] No Known Allergies Current Outpatient Medications Medication Sig Dispense Refill amLODIPine (NORVASC) 10 MG tablet Take 1 (one) tablet (10 mg total) by mouth every morning . cholecalciferol, vitamin D3, 1,000 unit tablet Take 1 (one) tablet (1,000 Units total) by mouth every morning . cyanocobalamin, vitamin B-12, 2,000 mcg Tab Take 1 (one) tablet (2,000 mcg total) by mouth every morning . Eliquis 5 mg Tab ezetimibe-simvastatin (VYTORIN) 10-20 mg per tablet Take 1 (one) tablet by mouth every night at bedtime . omeprazole (PRILOSEC) 40 MG capsule Take 1 (one) capsule (40 mg total) by mouth 2 (two) times a day . 180 capsule 3 sucralfate (CARAFATE) 1 gram tablet Take 1 (one) tablet (1 g total) by mouth 4 (four) times a day before meals . 360 tablet 3 No current facility-administered medications for this visit. Social History Tobacco Use Smoking status: Never Smokeless tobacco: Never Vaping Use Vaping status: Never Used Substance Use Topics Alcohol use: Yes Alcohol/week: 1.0 - 3.0 standard drink of alcohol Types: 1 - 3 Drinks containing 0.5 oz of alcohol per week Drug use: Never Family History Problem Relation Age of Onset Skin cancer Mother Heart disease Father Hypertension Father Hyperlipidemia Father REVIEW OF SYSTEMS Pertinent positives are listed in HPI, PMSH, SH, ALL, otherwise all systems reviewed below are negative. The following systems were reviewed: [x] Const (fevers, chills, wt. loss, fatigue) [x] CV (HTN, CP, HOPKINS, edema, DVT) [x] Resp (SOB, pleurisy, asthma, apnea) [x] GI (N, V, D, C, M, abd pain, appetite) [x] Musc (back pain, joint stiffness, gout) [x] Neuro (seizures, syncope, paralysis) [x] Psych (depression, anxiety) [x] Endo (hot/cold intol, polyuria[DM]) [x] Hem/Lymph (Anemia, LA, bleeding) [x] Allerg/Immun (seasonal, immuniz) [x] Eyes (diplopia, cataracts) [x] ENT/mouth (dysphagia, epistaxis) [x] (dysuria, hematuria) [x] Skin/Breast (moles, rash, lumps, nipple changes) Pertinent Positives: See HPI Pertinent Negatives: See HPI Physical Exam: BP (!) 135/90 Pulse 99 Wt 78.5 kg (173 lb) BMI 24.13 kg/m Body mass index is 24.13 kg/m . Constitutional: Well nourished, well developed person in no acute distress. Ambulates without difficulty. Head: Atraumatic and normocephalic. Face: Within normal limits. Eyes: Pupils equal, round, reactive to light. Sclera white. Mouth: Moist mucous membranes, normal dentation. Neck: supple, trachea midline,no masses, no incisions. Lymphatic: No cervical or inguinal lymphadenopathy. Heart: Regular rate and rhythm. Lungs: Clear to auscultation. Abdomen: Soft, non-distended, non-tender, no heptasplenomegaly, no umbilica, incisional, femoral, or inguinal hernias. Pelvis: Stable, non-tender. Skin: Warm, moist, normal skin turgor. Peripheral Vascular: Palapable carotid, radial, and femoral pulses, no peripheral edema. Neuropsych: Alert and oriented, judgement and insight intact. Normal Gait. Assessment: 1. Long-segment Viveros's esophagus 2. Status post laparoscopic Santos fundoplication 3. Viveros's esophagus with dysplasia No orders of the defined types were placed in this encounter. Plan: Schedule esophagoscopy with RFA in April 2024. Risk, benefits, and alternatives were discussed with the patient in detail prior to obtaining consent. Abbe Wood MD documented in this encounter [facility] 08-14-2023 Note [facility] [address] (11) [facility] [address] [facility] [phone] Ary Forde is a 73 y.o. male being seen on 08/14/23 for Chief Complaint Patient presents with Follow-up Long segment Viveros's esophagus, RFA HPI: The patient presents today for follow-up after his most recent RFA. He has a known history of long segment Viveros's and has previously undergone fundoplication. His last RFA was on 07/09/2023. At that time his Atlas classification was C0-M5. There was mainly spotty disease noted. He underwent treatment with RFA. Today he denies meaningful heartburn, regurgitation, or esophageal dysphagia. He reports significant decrease in the overall amount of phlegm in the back of his throat. 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 2017 [place] GERD (gastroesophageal reflux disease) Hiatal hernia 07/31/2022 small type-I sliding Hypercholesteremia Hypertension PONV (postoperative nausea and vomiting) Past Surgical History: Procedure Laterality Date ABDOMINAL HERNIA REPAIR 02/26/2014 EGD N/A 04/04/2020 Procedure: ESOPHAGOGASTRODUODENOSCOPY; Surgeon: Abbe Wood MD; Location: [facility] OR; Service: [employer]-Rob[employer] EGD N/A 12/15/2020 Procedure: ESOPHAGOGASTRODUODENOSCOPY WITH BIOPSY; Surgeon: Abbe Wood MD; Location: Endo; Service: General Surgery EGD N/A 12/27/2020 Procedure: ESOPHAGOSCOPY WITH BIOPSY; Surgeon: Abbe Wood MD; Location: Endo; Service: General Surgery ESOPHAGOGASTRODUODENOSCOPY 11/25/2017 Viveros's esophagus.....Thomae ESOPHAGOGASTRODUODENOSCOPY 12/21/2019 [place] ESOPHAGOSCOPY N/A 01/02/2021 Procedure: ESOPHAGOSCOPY WITH RFA; Surgeon: Abbe Wood MD; Location: Endo; Service: Gastroenterology ESOPHAGOSCOPY N/A 07/04/2021 Procedure: ESOPHAGOSCOPY; Surgeon: Abbe Wood MD; Location: Endo; Service: Gastroenterology ESOPHAGOSCOPY N/A 07/18/2021 Procedure: ESOPHAGOSCOPY WITH RFA; Surgeon: Abbe Wood MD; Location: Endo; Service: Gastroenterology ESOPHAGOSCOPY N/A 05/01/2021 Procedure: ESOPHAGOSCOPY WITH RFA; Surgeon: Abbe Wood MD; Location: Endo; Service: Gastroenterology ESOPHAGOSCOPY N/A 09/12/2021 Procedure: ESOPHAGOSCOPY WITH RFA; Surgeon: Abbe Wood MD; Location: Endo; Service: Gastroenterology ESOPHAGOSCOPY N/A 12/14/2021 Procedure: ESOPHAGOSCOPY WITH RFA; Surgeon: Abbe Wood MD; Location: Endo; Service: Gastroenterology ESOPHAGOSCOPY N/A 04/17/2022 Procedure: ESOPHAGOSCOPY WITH RFA; Surgeon: Abbe Wood MD; Location: Endo; Service: Gastroenterology ESOPHAGOSCOPY N/A 06/19/2022 Procedure: ESOPHAGOSCOPY WITH biopsy; Surgeon: Abbe Wood MD; Location: Endo; Service: Gastroenterology ESOPHAGOSCOPY N/A 07/31/2022 Procedure: ESOPHAGOSCOPY WITH RFA; Surgeon: Abbe Wood MD; Location: Endo; Service: Gastroenterology ESOPHAGOSCOPY N/A 10/16/2022 Procedure: ESOPHAGOSCOPY WITH RFA; Surgeon: Abbe Wood MD; Location: Endo; Service: Gastroenterology ESOPHAGOSCOPY N/A 01/08/2023 Procedure: ESOPHAGOSCOPY WITH RFA; Surgeon: Abbe Wood MD; Location: Endo; Service: Gastroenterology ESOPHAGOSCOPY N/A 04/16/2023 Procedure: ESOPHAGOSCOPY WITH RFA; Surgeon: Abbe Wood MD; Location: Endo; Service: Gastroenterology ESOPHAGOSCOPY N/A 07/09/2023 Procedure: ESOPHAGOSCOPY WITH RFA; Surgeon: Abbe Wood MD; Location: Endo; Service: Gastroenterology HERNIA REPAIR Right 1998 Inguinal with mesh SANTOS FUNDOPLICATION ROBOT ASSISTED N/A 10/09/2021 Procedure: REDO HIATAL HERNIA REPAIR WITH YVES AND REDO SANTOS FUNDOPLICATION ROBOTIC XI; Surgeon: Abbe Wood MD; Location: Main OR; Service: [employer] REPAIR HERNIA HIATAL WITH SPHINCTER AUGMENTATION ROBOTIC XI N/A 04/04/2020 Procedure: REPAIR HERNIA HIATAL WITH mesh, lysis of adhesions and santos fundoplication ROBOTIC XI; Surgeon: Abbe Wood MD; Location: Main OR; Service: [employer] No Known Allergies Current Outpatient Medications Medication Sig Dispense Refill amLODIPine (NORVASC) 10 MG tablet Take 1 (one) tablet (10 mg total) by mouth every morning . cholecalciferol, vitamin D3, 1,000 unit tablet Take 1 (one) tablet (1,000 Units total) by mouth every morning . cyanocobalamin, vitamin B-12, 2,000 mcg Tab Take 1 (one) tablet (2,000 mcg total) by mouth every morning . Eliquis 5 mg Tab ezetimibe-simvastatin (VYTORIN) 10-20 mg per tablet Take 1 (one) tablet by mouth every night at bedtime . omeprazole (PRILOSEC) 40 MG capsule Take 1 (one) capsule (40 mg total) by mouth 2 (two) times a day . 60 capsule 3 sucralfate (CARAFATE) 1 gram tablet Take 1 (one) tablet (1 g total) by mouth 4 (four) times a day before meals . 120 tablet 11 sucralfate (Carafate) 100 mg/mL suspension Take 10 mL (1 g total) by mout (more content not included)... [facility] 08-14-2023 History of Present illness Narrative [facility] [address] (11) [facility] [address] [facility] [id number] Ary Forde is a 73 y.o. male being seen on 08/14/23 for Chief Complaint Patient presents with Follow-up Long segment Viveros's esophagus, RFA HPI: The patient presents today for follow-up after his most recent RFA. He has a known history of long segment Viveros's and has previously undergone fundoplication. His last RFA was on 07/09/2023. At that time his Atlas classification was C0-M5. There was mainly spotty disease noted. He underwent treatment with RFA. Today he denies meaningful heartburn, regurgitation, or esophageal dysphagia. He reports significant decrease in the overall amount of phlegm in the back of his throat. 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 2017 [place] GERD (gastroesophageal reflux disease) Hiatal hernia 07/31/2022 small type-I sliding Hypercholesteremia Hypertension PONV (postoperative nausea and vomiting) Past Surgical History: Procedure Laterality Date ABDOMINAL HERNIA REPAIR 02/26/2014 EGD N/A 04/04/2020 Procedure: ESOPHAGOGASTRODUODENOSCOPY; Surgeon: Abbe Wood MD; Location: [facility] OR; Service: [employer]-Rob[employer] EGD N/A 12/15/2020 Procedure: ESOPHAGOGASTRODUODENOSCOPY WITH BIOPSY; Surgeon: Abbe Wood MD; Location: Endo; Service: General Surgery EGD N/A 12/27/2020 Procedure: ESOPHAGOSCOPY WITH BIOPSY; Surgeon: Abbe Wood MD; Location: [facility]; Service: General Surgery ESOPHAGOGASTRODUODENOSCOPY 11/25/2017 Viveros's esophagus.....Thomae ESOPHAGOGASTRODUODENOSCOPY 12/21/2019 [place] ESOPHAGOSCOPY N/A 01/02/2021 Procedure: ESOPHAGOSCOPY WITH RFA; Surgeon: Abbe Wood MD; Location: Endo; Service: Gastroenterology ESOPHAGOSCOPY N/A 07/04/2021 Procedure: ESOPHAGOSCOPY; Surgeon: Abbe Wood MD; Location: Endo; Service: Gastroenterology ESOPHAGOSCOPY N/A 07/18/2021 Procedure: ESOPHAGOSCOPY WITH RFA; Surgeon: Abbe Wood MD; Location: Endo; Service: Gastroenterology ESOPHAGOSCOPY N/A 05/01/2021 Procedure: ESOPHAGOSCOPY WITH RFA; Surgeon: Abbe Wood MD; Location: Endo; Service: Gastroenterology ESOPHAGOSCOPY N/A 09/12/2021 Procedure: ESOPHAGOSCOPY WITH RFA; Surgeon: Abbe Wood MD; Location: Endo; Service: Gastroenterology ESOPHAGOSCOPY N/A 12/14/2021 Procedure: ESOPHAGOSCOPY WITH RFA; Surgeon: Abbe Wood MD; Location: Endo; Service: Gastroenterology ESOPHAGOSCOPY N/A 04/17/2022 Procedure: ESOPHAGOSCOPY WITH RFA; Surgeon: Abbe Wood MD; Location: Endo; Service: Gastroenterology ESOPHAGOSCOPY N/A 06/19/2022 Procedure: ESOPHAGOSCOPY WITH biopsy; Surgeon: Abbe Wood MD; Location: Endo; Service: Gastroenterology ESOPHAGOSCOPY N/A 07/31/2022 Procedure: ESOPHAGOSCOPY WITH RFA; Surgeon: Abbe Wood MD; Location: Endo; Service: Gastroenterology ESOPHAGOSCOPY N/A 10/16/2022 Procedure: ESOPHAGOSCOPY WITH RFA; Surgeon: Abbe Wood MD; Location: Endo; Service: Gastroenterology ESOPHAGOSCOPY N/A 01/08/2023 Procedure: ESOPHAGOSCOPY WITH RFA; Surgeon: Abbe Wood MD; Location: Endo; Service: Gastroenterology ESOPHAGOSCOPY N/A 04/16/2023 Procedure: ESOPHAGOSCOPY WITH RFA; Surgeon: Abbe Wood MD; Location: Endo; Service: Gastroenterology ESOPHAGOSCOPY N/A 07/09/2023 Procedure: ESOPHAGOSCOPY WITH RFA; Surgeon: Abbe Wood MD; Location: Endo; Service: Gastroenterology HERNIA REPAIR Right 1998 Inguinal with mesh SANTOS FUNDOPLICATION ROBOT ASSISTED N/A 10/09/2021 Procedure: REDO HIATAL HERNIA REPAIR WITH YVES AND REDO SANTOS FUNDOPLICATION ROBOTIC XI; Surgeon: Abbe Wood MD; Location: Main OR; Service: [employer] REPAIR HERNIA HIATAL WITH SPHINCTER AUGMENTATION ROBOTIC XI N/A 04/04/2020 Procedure: REPAIR HERNIA HIATAL WITH mesh, lysis of adhesions and santos fundoplication ROBOTIC XI; Surgeon: Abbe Wood MD; Location: Main OR; Service: [employer] No Known Allergies Current Outpatient Medications Medication Sig Dispense Refill amLODIPine (NORVASC) 10 MG tablet Take 1 (one) tablet (10 mg total) by mouth every morning . cholecalciferol, vitamin D3, 1,000 unit tablet Take 1 (one) tablet (1,000 Units total) by mouth every morning . cyanocobalamin, vitamin B-12, 2,000 mcg Tab Take 1 (one) tablet (2,000 mcg total) by mouth every morning . Eliquis 5 mg Tab ezetimibe-simvastatin (VYTORIN) 10-20 mg per tablet Take 1 (one) tablet by mouth every night at bedtime . omeprazole (PRILOSEC) 40 MG capsule Take 1 (one) capsule (40 mg total) by mouth 2 (two) times a day . 60 capsule 3 sucralfate (CARAFATE) 1 gram tablet Take 1 (one) tablet (1 g total) by mouth 4 (four) times a day before meals . 120 tablet 11 sucralfate (Carafate) 100 mg/mL suspension Take 10 mL (1 g total) by mouth 4 (four) times a day . 400 mL 2 sucralfate (Carafate) 100 mg/mL suspension Take 10 mL (1 g total) by mouth 4 (four) times a day . 400 mL 2 sucralfate (Carafate) 100 mg/mL suspension Take 10 mL (1 g total) by mouth 4 (four) times a day . 400 mL 2 No current facility-administered medications for this visit. Social History Tobacco Use Smoking status: Never Smokeless tobacco: Never Vaping Use Vaping status: Never Used Substance Use Topics Alcohol use: Yes Alcohol/week: 1.0 - 3.0 standard drink of alcohol Types: 1 - 3 Drinks containing 0.5 oz of alcohol per week Drug use: Never Family History Problem Relation Age of Onset Skin cancer Mother Heart disease Father Hypertension Father Hyperlipidemia Father REVIEW OF SYSTEMS Pertinent positives are listed in HPI, PMSH, SH, ALL, otherwise all systems reviewed below are negative. The following systems were reviewed: [x] Const (fevers, chills, wt. loss, fatigue) [x] CV (HTN, CP, HOPKINS, edema, DVT) [x] Resp (SOB, pleurisy, asthma, apnea) [x] GI (N, V, D, C, M, abd pain, appetite) [x] Musc (back pain, joint stiffness, gout) [x] Neuro (seizures, syncope, paralysis) [x] Psych (depression, anxiety) [x] Endo (hot/cold intol, polyuria[DM]) [x] Hem/Lymph (Anemia, LA, bleeding) [x] Allerg/Immun (seasonal, immuniz) [x] Eyes (diplopia, cataracts) [x] ENT/mouth (dysphagia, epistaxis) [x] (dysuria, hematuria) [x] Skin/Breast (moles, rash, lumps, nipple changes) Pertinent Positives: See HPI Pertinent Negatives: See HPI Physical Exam: BP (!) 163/86 Pulse 62 Ht 5' 11 Wt 76.5 kg (168 lb 9.6 oz) SpO2 97% BMI 23.51 kg/m Body mass index is 23.51 kg/m . Constitutional: Well nourished, well developed person in no acute distress. Ambulates without difficulty. Head: Atraumatic and normocephalic. Face: Within normal limits. Eyes: Pupils equal, round, reactive to light. Sclera white. Mouth: Moist mucous membranes, normal dentation. Neck: supple, trachea midline,no masses, no incisions. Lymphatic: No cervical or inguinal lymphadenopathy. Heart: Regular rate and rhythm. Lungs: Clear to auscultation. Abdomen: Soft, non-distended, non-tender, no heptasplenomegaly, no umbilica, incisional, femoral, or inguinal hernias. Pelvis: Stable, non-tender. Skin: Warm, moist, normal skin turgor. Peripheral Vascular: Palapable carotid, radial, and femoral pulses, no peripheral edema. Neuropsych: Alert and oriented, judgement and insight intact. Normal Gait. Assessment: 1. Long-segment Viveros's esophagus 2. Status post laparoscopic Santos fundoplication 3. Viveros's esophagus with dysplasia No orders of the defined types were placed in this encounter. Plan: Schedule esophagoscopy with surveillance biopsies and possible RFA. Risk, benefits, and alternatives were discussed with the patient in detail prior to obtaining consent. Abbe Wood MD documented in this encounter [facility] 05-22-2023 History of Present illness Narrative [facility] [address] (11) [facility] [address] [facility] [phone] Ary Forde is a 73 y.o. male being seen on 05/22/23 for Chief Complaint Patient presents with Follow-up Long-segment Viveros's esophagus HPI: The patient presents today for follow-up and to schedule his next RFA. He has a history of long segment Viveros's. He is previously undergone fundoplication. He denies heartburn, regurgitation, or meaningful esophageal dysphagia. He is tolerating a regular diet. His last RFA was on 04/16/2023. A Barrx 360 express balloon was used for therapy. 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 2017 [place] GERD (gastroesophageal reflux disease) Hiatal hernia 07/31/2022 small type-I sliding Hypercholesteremia Hypertension Past Surgical History: Procedure Laterality Date ABDOMINAL HERNIA REPAIR 02/26/2014 EGD N/A 04/04/2020 Procedure: ESOPHAGOGASTRODUODENOSCOPY; Surgeon: Abbe Wood MD; Location: [facility] OR; Service: [employer]-Rob[employer] EGD N/A 12/15/2020 Procedure: ESOPHAGOGASTRODUODENOSCOPY WITH BIOPSY; Surgeon: Abbe Wood MD; Location: Endo; Service: General Surgery EGD N/A 12/27/2020 Procedure: ESOPHAGOSCOPY WITH BIOPSY; Surgeon: Abbe Wood MD; Location: Endo; Service: General Surgery ESOPHAGOGASTRODUODENOSCOPY 11/25/2017 Viveros's esophagus.....Thomae ESOPHAGOGASTRODUODENOSCOPY 12/21/2019 [place] ESOPHAGOSCOPY N/A 01/02/2021 Procedure: ESOPHAGOSCOPY WITH RFA; Surgeon: Abbe Wood MD; Location: Endo; Service: Gastroenterology ESOPHAGOSCOPY N/A 07/04/2021 Procedure: ESOPHAGOSCOPY; Surgeon: Abbe Wood MD; Location: Endo; Service: Gastroenterology ESOPHAGOSCOPY N/A 07/18/2021 Procedure: ESOPHAGOSCOPY WITH RFA; Surgeon: Abbe Wood MD; Location: Endo; Service: Gastroenterology ESOPHAGOSCOPY N/A 05/01/2021 Procedure: ESOPHAGOSCOPY WITH RFA; Surgeon: Abbe Wood MD; Location: Endo; Service: Gastroenterology ESOPHAGOSCOPY N/A 09/12/2021 Procedure: ESOPHAGOSCOPY WITH RFA; Surgeon: Abbe Wood MD; Location: Endo; Service: Gastroenterology ESOPHAGOSCOPY N/A 12/14/2021 Procedure: ESOPHAGOSCOPY WITH RFA; Surgeon: Abbe Wood MD; Location: Endo; Service: Gastroenterology ESOPHAGOSCOPY N/A 04/17/2022 Procedure: ESOPHAGOSCOPY WITH RFA; Surgeon: Abbe Wood MD; Location: Endo; Service: Gastroenterology ESOPHAGOSCOPY N/A 06/19/2022 Procedure: ESOPHAGOSCOPY WITH biopsy; Surgeon: Abbe Wood MD; Location: Endo; Service: Gastroenterology ESOPHAGOSCOPY N/A 07/31/2022 Procedure: ESOPHAGOSCOPY WITH RFA; Surgeon: Abbe Wood MD; Location: Endo; Service: Gastroenterology ESOPHAGOSCOPY N/A 10/16/2022 Procedure: ESOPHAGOSCOPY WITH RFA; Surgeon: Abbe Wood MD; Location: Endo; Service: Gastroenterology ESOPHAGOSCOPY N/A 01/08/2023 Procedure: ESOPHAGOSCOPY WITH RFA; Surgeon: Abbe Wood MD; Location: Endo; Service: Gastroenterology ESOPHAGOSCOPY N/A 04/16/2023 Procedure: ESOPHAGOSCOPY WITH RFA; Surgeon: Abbe Wood MD; Location: Endo; Service: Gastroenterology HERNIA REPAIR Right 1998 Inguinal with mesh SANTOS FUNDOPLICATION ROBOT ASSISTED N/A 10/09/2021 Procedure: REDO HIATAL HERNIA REPAIR WITH YVES AND REDO SANTOS FUNDOPLICATION ROBOTIC XI; Surgeon: Abbe Wood MD; Location: [facility] OR; Service: [employer] REPAIR HERNIA HIATAL WITH SPHINCTER AUGMENTATION ROBOTIC XI N/A 04/04/2020 Procedure: REPAIR HERNIA HIATAL WITH mesh, lysis of adhesions and santos fundoplication ROBOTIC XI; Surgeon: Abbe Wood MD; Location: [facility] OR; Service: [employer] No Known Allergies Current Outpatient Medications Medication Sig Dispense Refill amLODIPine (NORVASC) 10 MG tablet Take 1 (one) tablet (10 mg total) by mouth every morning . cholecalciferol, vitamin D3, 1,000 unit tablet Take 1 (one) tablet (1,000 Units total) by mouth every morning . cyanocobalamin, vitamin B-12, 2,000 mcg Tab Take 1 (one) tablet (2,000 mcg total) by mouth every morning . Eliquis 5 mg Tab ezetimibe-simvastatin (VYTORIN) 10-20 mg per tablet Take 1 (one) tablet by mouth every night at bedtime . omeprazole (PRILOSEC) 40 MG capsule Take 1 (one) capsule (40 mg total) by mouth 2 (two) times a day . 60 capsule 3 sucralfate (CARAFATE) 1 gram tablet Take 1 (one) tablet (1 g total) by mouth 4 (four) times a day before meals . 120 tablet 11 sucralfate (Carafate) 100 mg/mL suspension Take 10 mL (1 g total) by mouth 4 (four) times a day . 400 mL 2 sucralfate (Carafate) 100 mg/mL suspension Take 10 mL (1 g total) by mouth 4 (four) times a day . 400 mL 2 No current facility-administered medications for this visit. Social History Tobacco Use Smoking status: Never Smokeless tobacco: Never Vaping Use Vaping Use: Never used Substance Use Topics Alcohol use: Yes Alcohol/week: 1.0 - 3.0 standard drink of alcohol Types: 1 - 3 Drinks containing 0.5 oz of alcohol per week Drug use: Never Family History Problem Relation Age of Onset Skin cancer Mother Heart disease Father Hypertension Father Hyperlipidemia Father REVIEW OF SYSTEMS Pertinent positives are listed in HPI, PMSH, SH, ALL, otherwise all systems reviewed below are negative. The following systems were reviewed: [x] Const (fevers, chills, wt. loss, fatigue) [x] CV (HTN, CP, HOPKINS, edema, DVT) [x] Resp (SOB, pleurisy, asthma, apnea) [x] GI (N, V, D, C, M, abd pain, appetite) [x] Musc (back pain, joint stiffness, gout) [x] Neuro (seizures, syncope, paralysis) [x] Psych (depression, anxiety) [x] Endo (hot/cold intol, polyuria[DM]) [x] Hem/Lymph (Anemia, LA, bleeding) [x] Allerg/Immun (seasonal, immuniz) [x] Eyes (diplopia, cataracts) [x] ENT/mouth (dysphagia, epistaxis) [x] (dysuria, hematuria) [x] Skin/Breast (moles, rash, lumps, nipple changes) Pertinent Positives: See HPI Pertinent Negatives: See HPI Physical Exam: BP (!) 162/86 Pulse 64 Ht 6' Wt 75.3 kg (166 lb 1.6 oz) SpO2 97% BMI 22.53 kg/m Body mass index is 22.53 kg/m . Constitutional: Well nourished, well developed person in no acute distress. Ambulates without difficulty. Head: Atraumatic and normocephalic. Face: Within normal limits. Eyes: Pupils equal, round, reactive to light. Sclera white. Mouth: Moist mucous membranes, normal dentation. Neck: supple, trachea midline,no masses, no incisions. Lymphatic: No cervical or inguinal lymphadenopathy. Heart: Regular rate and rhythm. Lungs: Clear to auscultation. Abdomen: Soft, non-distended, non-tender, no heptasplenomegaly, no umbilica, incisional, femoral, or inguinal hernias. Pelvis: Stable, non-tender. Skin: Warm, moist, normal skin turgor. Peripheral Vascular: Palapable carotid, radial, and femoral pulses, no peripheral edema. Neuropsych: Alert and oriented, judgement and insight intact. Normal Gait. Assessment: 1. Long-segment Viveros's esophagus 2. Status post laparoscopic Santos fundoplication 3. Viveros's esophagus with dysplasia No orders of the defined types were placed in this encounter. Plan: Schedule esophagoscopy with RFA. Risk, benefits, and alternatives were discussed with the patient in detail prior to obtaining consent. Abbe Wood MD documented in this encounter [facility] 12-05-2022 History of Present illness Narrative [facility] [address] (11) [facility] [address] [facility] [id number] Ary Forde is a 72 y.o. male being seen on 12/05/22 for Chief Complaint Patient presents with Follow-up RFA HPI: The patient presents today to schedule his next RFA. He has a known history of long segment Viveros's. He has undergone multiple RFA treatments. On 04/04/2020 he underwent robotic assisted laparoscopic hiatal hernia repair with mesh and LINX sphincter augmentation. He had a recurrent hiatal hernia and on 10/09/2021 underwent conversion from LINX sphincter augmentation to Santos fundoplication along with repair of his recurrent hiatal hernia. His last treatment was on 10/16/2022. At that time his Atlas classification was C1-M5. He did well after treatment. He denies meaningful heartburn, regurgitation, or esophageal dysphagia. He did have retained gastric contents in his last EGD. He denies significant bloating as long as he takes his time when he eats. He and his are planning to go to [place] after 2022 and will return in early April 2023. 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 2017 [place] GERD (gastroesophageal reflux disease) Hiatal hernia 07/31/2022 small type-I sliding Hypercholesteremia Hypertension Past Surgical History: Procedure Laterality Date ABDOMINAL HERNIA REPAIR 02/26/2014 EGD N/A 04/04/2020 Procedure: ESOPHAGOGASTRODUODENOSCOPY; Surgeon: Abbe Wood MD; Location: [facility] OR; Service: Gen-Robotics EGD N/A 12/15/2020 Procedure: ESOPHAGOGASTRODUODENOSCOPY WITH BIOPSY; Surgeon: Abbe Wood MD; Location: Endo; Service: General Surgery EGD N/A 12/27/2020 Procedure: ESOPHAGOSCOPY WITH BIOPSY; Surgeon: Abbe Wood MD; Location: [facility]; Service: General Surgery ESOPHAGOGASTRODUODENOSCOPY 11/25/2017 Viveros's esophagus.....Thomae ESOPHAGOGASTRODUODENOSCOPY 12/21/2019 [place] ESOPHAGOSCOPY N/A 01/02/2021 Procedure: ESOPHAGOSCOPY WITH RFA; Surgeon: Abbe Wood MD; Location: [facility]; Service: Gastroenterology ESOPHAGOSCOPY N/A 07/04/2021 Procedure: ESOPHAGOSCOPY; Surgeon: Abbe Wood MD; Location: Endo; Service: Gastroenterology ESOPHAGOSCOPY N/A 07/18/2021 Procedure: ESOPHAGOSCOPY WITH RFA; Surgeon: Abbe Wood MD; Location: Endo; Service: Gastroenterology ESOPHAGOSCOPY N/A 05/01/2021 Procedure: ESOPHAGOSCOPY WITH RFA; Surgeon: Abbe Wood MD; Location: Endo; Service: Gastroenterology ESOPHAGOSCOPY N/A 09/12/2021 Procedure: ESOPHAGOSCOPY WITH RFA; Surgeon: Abbe Wood MD; Location: Endo; Service: Gastroenterology ESOPHAGOSCOPY N/A 12/14/2021 Procedure: ESOPHAGOSCOPY WITH RFA; Surgeon: Abbe Wood MD; Location: Endo; Service: Gastroenterology ESOPHAGOSCOPY N/A 04/17/2022 Procedure: ESOPHAGOSCOPY WITH RFA; Surgeon: Abbe Wood MD; Location: Endo; Service: Gastroenterology ESOPHAGOSCOPY N/A 06/19/2022 Procedure: ESOPHAGOSCOPY WITH biopsy; Surgeon: Abbe Wood MD; Location: Endo; Service: Gastroenterology ESOPHAGOSCOPY N/A 07/31/2022 Procedure: ESOPHAGOSCOPY WITH RFA; Surgeon: Abbe Wood MD; Location: Endo; Service: Gastroenterology ESOPHAGOSCOPY N/A 10/16/2022 Procedure: ESOPHAGOSCOPY WITH RFA; Surgeon: Abbe Wood MD; Location: Endo; Service: Gastroenterology HERNIA REPAIR Right 1998 Inguinal with mesh SANTOS FUNDOPLICATION ROBOT ASSISTED N/A 10/09/2021 Procedure: REDO HIATAL HERNIA REPAIR WITH YVES AND REDO SANTOS FUNDOPLICATION ROBOTIC XI; Surgeon: Abbe Wood MD; Location: Main OR; Service: [employer] REPAIR HERNIA HIATAL WITH SPHINCTER AUGMENTATION ROBOTIC XI N/A 04/04/2020 Procedure: REPAIR HERNIA HIATAL WITH mesh, lysis of adhesions and santos fundoplication ROBOTIC XI; Surgeon: Abbe Wood MD; Location: Main OR; Service: [employer] No Known Allergies Current Outpatient Medications Medication Sig Dispense Refill amLODIPine (NORVASC) 10 MG tablet Take 1 (one) tablet (10 mg total) by mouth every morning . cholecalciferol, vitamin D3, 1,000 unit tablet Take 1 (one) tablet (1,000 Units total) by mouth every morning . cyanocobalamin, vitamin B-12, 2,000 mcg Tab Take 1 (one) tablet (2,000 mcg total) by mouth every morning . Eliquis 5 mg Tab ezetimibe-simvastatin (VYTORIN) 10-20 mg per tablet Take 1 (one) tablet by mouth every night at bedtime . omeprazole (PRILOSEC) 40 MG capsule Take 1 (one) capsule (40 mg total) by mouth 2 (two) times a day . 60 capsule 3 sucralfate (CARAFATE) 1 gram tablet Take 1 (one) tablet (1 g total) by mouth 4 (four) times a day before meals . 120 tablet 11 No current facility-administered medications for this visit. Social History Tobacco Use Smoking status: Never Smokeless tobacco: Never Vaping Use Vaping Use: Never used Substance Use Topics Alcohol use: Yes Alcohol/week: 1.0 - 3.0 standard drink of alcohol Types: 1 - 3 Drinks containing 0.5 oz of alcohol per week Drug use: Never Family History Problem Relation Age of Onset Skin cancer Mother Heart disease Father Hypertension Father Hyperlipidemia Father REVIEW OF SYSTEMS Pertinent positives are listed in HPI, PMSH, SH, ALL, otherwise all systems reviewed below are negative. The following systems were reviewed: [x] Const (fevers, chills, wt. loss, fatigue) [x] CV (HTN, CP, HOPKINS, edema, DVT) [x] Resp (SOB, pleurisy, asthma, apnea) [x] GI (N, V, D, C, M, abd pain, appetite) [x] Musc (back pain, joint stiffness, gout) [x] Neuro (seizures, syncope, paralysis) [x] Psych (depression, anxiety) [x] Endo (hot/cold intol, polyuria[DM]) [x] Hem/Lymph (Anemia, LA, bleeding) [x] Allerg/Immun (seasonal, immuniz) [x] Eyes (diplopia, cataracts) [x] ENT/mouth (dysphagia, epistaxis) [x] (dysuria, hematuria) [x] Skin/Breast (moles, rash, lumps, nipple changes) Pertinent Positives: See HPI Pertinent Negatives: See HPI Physical Exam: BP (!) 159/83 Pulse 64 Wt 77.1 kg (170 lb) BMI 23.06 kg/m Body mass index is 23.06 kg/m . Constitutional: Well nourished, well developed person in no acute distress. Ambulates without difficulty. Head: Atraumatic and normocephalic. Face: Within normal limits. Eyes: Pupils equal, round, reactive to light. Sclera white. Mouth: Moist mucous membranes, normal dentation. Neck: supple, trachea midline,no masses, no incisions. Lymphatic: No cervical or inguinal lymphadenopathy. Heart: Regular rate and rhythm. Lungs: Clear to auscultation. Abdomen: Soft, non-distended, non-tender, no heptasplenomegaly, no umbilica, incisional, femoral, or inguinal hernias. Pelvis: Stable, non-tender. Skin: Warm, moist, normal skin turgor. Peripheral Vascular: Palapable carotid, radial, and femoral pulses, no peripheral edema. Neuropsych: Alert and oriented, judgement and insight intact. Normal Gait. Assessment: 1. Long-segment Viveros's esophagus No orders of the defined types were placed in this encounter. Plan: Schedule esophagoscopy with RFA. Risk, benefits, and alternatives were discussed with the patient detail prior to obtaining consent. The patient will need to hold Eliquis per protocol prior to the procedure. Abbe Wood MD documented in this encounter [facility] 12-05-2022 History of Present illness Narrative [facility] [address] ([address]) [facility] [address] [facility] [address] Ary Forde is a 72 y.o. male being seen on 12/05/22 for Chief Complaint Patient presents with Follow-up RFA HPI: The patient presents today to schedule his next RFA. He has a known history of long segment Viveros's. He has undergone multiple RFA treatments. On 04/04/2020 he underwent robotic assisted laparoscopic hiatal hernia repair with mesh and LINX sphincter augmentation. He had a recurrent hiatal hernia and on 10/09/2021 underwent conversion from LINX sphincter augmentation to Santos fundoplication along with repair of his recurrent hiatal hernia. His last treatment was on 10/16/2022. At that time his Atlas classification was C1-M5. He did well after treatment. He denies meaningful heartburn, regurgitation, or esophageal dysphagia. He did have retained gastric contents in his last EGD. He denies significant bloating as long as he takes his time when he eats. He and his are planning to go to [place] after 2022 and will return in early April 2023. 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 2017 [place] GERD (gastroesophageal reflux disease) Hiatal hernia 07/31/2022 small type-I sliding Hypercholesteremia Hypertension Past Surgical History: Procedure Laterality Date ABDOMINAL HERNIA REPAIR 02/26/2014 EGD N/A 04/04/2020 Procedure: ESOPHAGOGASTRODUODENOSCOPY; Surgeon: Abbe Wood MD; Location: Main OR; Service: [employer] EGD N/A 12/15/2020 Procedure: ESOPHAGOGASTRODUODENOSCOPY WITH BIOPSY; Surgeon: Abbe Wood MD; Location: Endo; Service: General Surgery EGD N/A 12/27/2020 Procedure: ESOPHAGOSCOPY WITH BIOPSY; Surgeon: Abbe Wood MD; Location: Endo; Service: General Surgery ESOPHAGOGASTRODUODENOSCOPY 11/25/2017 Viveros's esophagus.....Thom[place] ESOPHAGOGASTRODUODENOSCOPY 12/21/2019 [place] ESOPHAGOSCOPY N/A 01/02/2021 Procedure: ESOPHAGOSCOPY WITH RFA; Surgeon: Abbe Wood MD; Location: Endo; Service: Gastroenterology ESOPHAGOSCOPY N/A 07/04/2021 Procedure: ESOPHAGOSCOPY; Surgeon: Abbe Wood MD; Location: Endo; Service: Gastroenterology ESOPHAGOSCOPY N/A 07/18/2021 Procedure: ESOPHAGOSCOPY WITH RFA; Surgeon: Abbe Wood MD; Location: Endo; Service: Gastroenterology ESOPHAGOSCOPY N/A 05/01/2021 Procedure: ESOPHAGOSCOPY WITH RFA; Surgeon: Abbe Wood MD; Location: Endo; Service: Gastroenterology ESOPHAGOSCOPY N/A 09/12/2021 Procedure: ESOPHAGOSCOPY WITH RFA; Surgeon: Abbe Wood MD; Location: Endo; Service: Gastroenterology ESOPHAGOSCOPY N/A 12/14/2021 Procedure: ESOPHAGOSCOPY WITH RFA; Surgeon: Abbe Wood MD; Location: Endo; Service: Gastroenterology ESOPHAGOSCOPY N/A 04/17/2022 Procedure: ESOPHAGOSCOPY WITH RFA; Surgeon: Abbe Wood MD; Location: Endo; Service: Gastroenterology ESOPHAGOSCOPY N/A 06/19/2022 Procedure: ESOPHAGOSCOPY WITH biopsy; Surgeon: Abbe Wood MD; Location: Endo; Service: Gastroenterology ESOPHAGOSCOPY N/A 07/31/2022 Procedure: ESOPHAGOSCOPY WITH RFA; Surgeon: Abbe Wood MD; Location: Endo; Service: Gastroenterology ESOPHAGOSCOPY N/A 10/16/2022 Procedure: ESOPHAGOSCOPY WITH RFA; Surgeon: bAbe Wood MD; Location: Endo; Service: Gastroenterology HERNIA REPAIR Right 1998 Inguinal with mesh SANTOS FUNDOPLICATION ROBOT ASSISTED N/A 10/09/2021 Procedure: REDO HIATAL HERNIA REPAIR WITH YVES AND REDO SANTOS FUNDOPLICATION ROBOTIC XI; Surgeon: Abbe Wood MD; Location: Main OR; Service: [employer] REPAIR HERNIA HIATAL WITH SPHINCTER AUGMENTATION ROBOTIC XI N/A 04/04/2020 Procedure: REPAIR HERNIA HIATAL WITH mesh, lysis of adhesions and santos fundoplication ROBOTIC XI; Surgeon: Abbe Wood MD; Location: Main OR; Service: [employer] No Known Allergies Current Outpatient Medications Medication Sig Dispense Refill amLODIPine (NORVASC) 10 MG tablet Take 1 (one) tablet (10 mg total) by mouth every morning . cholecalciferol, vitamin D3, 1,000 unit tablet Take 1 (one) tablet (1,000 Units total) by mouth every morning . cyanocobalamin, vitamin B-12, 2,000 mcg Tab Take 1 (one) tablet (2,000 mcg total) by mouth every morning . Eliquis 5 mg Tab ezetimibe-simvastatin (VYTORIN) 10-20 mg per tablet Take 1 (one) tablet by mouth every night at bedtime . omeprazole (PRILOSEC) 40 MG capsule Take 1 (one) capsule (40 mg total) by mouth 2 (two) times a day . 60 capsule 3 sucralfate (CARAFATE) 1 gram tablet Take 1 (one) tablet (1 g total) by mouth 4 (four) times a day before meals . 120 tablet 11 No current facility-administered medications for this visit. Social History Tobacco Use Smoking status: Never Smokeless tobacco: Never Vaping Use Vaping Use: Never used Substance Use Topics Alcohol use: Yes Alcohol/week: 1.0 - 3.0 standard drink of alcohol Types: 1 - 3 Drinks containing 0.5 oz of alcohol per week Drug use: Never Family History Problem Relation Age of Onset Skin cancer Mother Heart disease Father Hypertension Father Hyperlipidemia Father REVIEW OF SYSTEMS Pertinent positives are listed in HPI, PMSH, SH, ALL, otherwise all systems reviewed below are negative. The following systems were reviewed: [x] Const (fevers, chills, wt. loss, fatigue) [x] CV (HTN, CP, HOPKINS, edema, DVT) [x] Resp (SOB, pleurisy, asthma, apnea) [x] GI (N, V, D, C, M, abd pain, appetite) [x] Musc (back pain, joint stiffness, gout) [x] Neuro (seizures, syncope, paralysis) [x] Psych (depression, anxiety) [x] Endo (hot/cold intol, polyuria[DM]) [x] Hem/Lymph (Anemia, LA, bleeding) [x] Allerg/Immun (seasonal, immuniz) [x] Eyes (diplopia, cataracts) [x] ENT/mouth (dysphagia, epistaxis) [x] (dysuria, hematuria) [x] Skin/Breast (moles, rash, lumps, nipple changes) Pertinent Positives: See HPI Pertinent Negatives: See HPI Physical Exam: BP (!) 159/83 Pulse 64 Wt 77.1 kg (170 lb) BMI 23.06 kg/m Body mass index is 23.06 kg/m . Constitutional: Well nourished, well developed person in no acute distress. Ambulates without difficulty. Head: Atraumatic and normocephalic. Face: Within normal limits. Eyes: Pupils equal, round, reactive to light. Sclera white. Mouth: Moist mucous membranes, normal dentation. Neck: supple, trachea midline,no masses, no incisions. Lymphatic: No cervical or inguinal lymphadenopathy. Heart: Regular rate and rhythm. Lungs: Clear to auscultation. Abdomen: Soft, non-distended, non-tender, no heptasplenomegaly, no umbilica, incisional, femoral, or inguinal hernias. Pelvis: Stable, non-tender. Skin: Warm, moist, normal skin turgor. Peripheral Vascular: Palapable carotid, radial, and femoral pulses, no peripheral edema. Neuropsych: Alert and oriented, judgement and insight intact. Normal Gait. Assessment: 1. Long-segment Viveros's esophagus No orders of the defined types were placed in this encounter. Plan: Schedule esophagoscopy with RFA. Risk, benefits, and alternatives were discussed with the patient detail prior to obtaining consent. The patient will need to hold Eliquis per protocol prior to the procedure. Abbe Wood MD documented in this encounter [facility] 09-13-2022 History of Present illness Narrative [facility] [address] (11) [facility] [address] [facility] [address] Ary Forde is a 72 y.o. male being seen on 09/13/22 for Chief Complaint Patient presents with Follow-up Ivveros's esophagus HPI: The patient presents today to schedule his next RFA. He has a known history of long segment Viveros's. He has undergone multiple RFA treatments. On 04/04/2020 he underwent a robotic assisted laparoscopic hiatal hernia repair with mesh and link sphincter augmentation. He had a recurrent hernia and on 10/09/2021 underwent conversion from lung sphincter augmentation to Santos fundoplication along with a redo pair of his recurrent hiatal hernia. His last treatment was on 07/31/2022. At that time he was treated with a Barrx 360 express catheter and balloon based endoscopic ablation system. His Atlas classification at that time was C1-M5. He did have evidence of a small type I recurrent hiatal hernia. He has done well since therapy. He is currently on Prilosec 40 mg p.o. twice daily for symptom management. 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 2017 [place] GERD (gastroesophageal reflux disease) Hiatal hernia 07/31/2022 small type-I sliding Hypercholesteremia Hypertension Past Surgical History: Procedure Laterality Date ABDOMINAL HERNIA REPAIR 02/26/2014 EGD N/A 04/04/2020 Procedure: ESOPHAGOGASTRODUODENOSCOPY; Surgeon: Abbe Wood MD; Location: Main OR; Service: Gen-Rob[employer] EGD N/A 12/15/2020 Procedure: ESOPHAGOGASTRODUODENOSCOPY WITH BIOPSY; Surgeon: Abbe Wood MD; Location: Endo; Service: General Surgery EGD N/A 12/27/2020 Procedure: ESOPHAGOSCOPY WITH BIOPSY; Surgeon: Abbe Wood MD; Location: Endo; Service: General Surgery ESOPHAGOGASTRODUODENOSCOPY 11/25/2017 Viveros's esophagus.....Thomae ESOPHAGOGASTRODUODENOSCOPY 12/21/2019 [place] ESOPHAGOSCOPY N/A 01/02/2021 Procedure: ESOPHAGOSCOPY WITH RFA; Surgeon: Abbe Wood MD; Location: Endo; Service: Gastroenterology ESOPHAGOSCOPY N/A 07/04/2021 Procedure: ESOPHAGOSCOPY; Surgeon: Abbe Wood MD; Location: Endo; Service: Gastroenterology ESOPHAGOSCOPY N/A 07/18/2021 Procedure: ESOPHAGOSCOPY WITH RFA; Surgeon: Abbe Wood MD; Location: Endo; Service: Gastroenterology ESOPHAGOSCOPY N/A 05/01/2021 Procedure: ESOPHAGOSCOPY WITH RFA; Surgeon: Abbe Wood MD; Location: Endo; Service: Gastroenterology ESOPHAGOSCOPY N/A 09/12/2021 Procedure: ESOPHAGOSCOPY WITH RFA; Surgeon: Abbe Wood MD; Location: Endo; Service: Gastroenterology ESOPHAGOSCOPY N/A 12/14/2021 Procedure: ESOPHAGOSCOPY WITH RFA; Surgeon: Abbe Wood MD; Location: Endo; Service: Gastroenterology ESOPHAGOSCOPY N/A 04/17/2022 Procedure: ESOPHAGOSCOPY WITH RFA; Surgeon: Abbe Wood MD; Location: Endo; Service: Gastroenterology ESOPHAGOSCOPY N/A 06/19/2022 Procedure: ESOPHAGOSCOPY WITH biopsy; Surgeon: Abbe Wood MD; Location: Endo; Service: Gastroenterology ESOPHAGOSCOPY N/A 07/31/2022 Procedure: ESOPHAGOSCOPY WITH RFA; Surgeon: Abbe Wood MD; Location: Endo; Service: Gastroenterology HERNIA REPAIR Right 1998 Inguinal with mesh SANTOS FUNDOPLICATION ROBOT ASSISTED N/A 10/09/2021 Procedure: REDO HIATAL HERNIA REPAIR WITH YVES AND REDO SANTOS FUNDOPLICATION ROBOTIC XI; Surgeon: Abbe Wood MD; Location: Main OR; Service: [employer] REPAIR HERNIA HIATAL WITH SPHINCTER AUGMENTATION ROBOTIC XI N/A 04/04/2020 Procedure: REPAIR HERNIA HIATAL WITH mesh, lysis of adhesions and santos fundoplication ROBOTIC XI; Surgeon: Abbe Wood MD; Location: Main OR; Service: [employer] No Known Allergies Current Outpatient Medications Medication Sig Dispense Refill amLODIPine (NORVASC) 10 MG tablet Take 1 (one) tablet (10 mg total) by mouth every morning . cholecalciferol, vitamin D3, 1,000 unit tablet Take 1 (one) tablet (1,000 Units total) by mouth every morning . cyanocobalamin, vitamin B-12, 2,000 mcg Tab Take 1 (one) tablet (2,000 mcg total) by mouth every morning . Eliquis 5 mg Tab ezetimibe-simvastatin (VYTORIN) 10-20 mg per tablet Take 1 (one) tablet by mouth every night at bedtime . sucralfate (CARAFATE) 1 gram tablet Take 1 (one) tablet (1 g total) by mouth 4 (four) times a day before meals . 120 tablet 3 omeprazole (PRILOSEC) 40 MG capsule Take 1 (one) capsule (40 mg total) by mouth 2 (two) times a day . 60 capsule 3 sucralfate (Carafate) 100 mg/mL suspension Take 10 mL (1 g total) by mouth 4 (four) times a day . 400 mL 2 No current facility-administered medications for this visit. Social History Tobacco Use Smoking status: Never Smokeless tobacco: Never Vaping Use Vaping Use: Never used Substance Use Topics Alcohol use: Yes Alcohol/week: 1.0 - 3.0 standard drink of alcohol Types: 1 - 3 Drinks containing 0.5 oz of alcohol per week Drug use: Never Family History Problem Relation Age of Onset Skin cancer Mother Heart disease Father Hypertension Father Hyperlipidemia Father REVIEW OF SYSTEMS Pertinent positives are listed in HPI, PMSH, SH, ALL, otherwise all systems reviewed below are negative. The following systems were reviewed: [x] Const (fevers, chills, wt. loss, fatigue) [x] CV (HTN, CP, HOPKINS, edema, DVT) [x] Resp (SOB, pleurisy, asthma, apnea) [x] GI (N, V, D, C, M, abd pain, appetite) [x] Musc (back pain, joint stiffness, gout) [x] Neuro (seizures, syncope, paralysis) [x] Psych (depression, anxiety) [x] Endo (hot/cold intol, polyuria[DM]) [x] Hem/Lymph (Anemia, LA, bleeding) [x] Allerg/Immun (seasonal, immuniz) [x] Eyes (diplopia, cataracts) [x] ENT/mouth (dysphagia, epistaxis) [x] (dysuria, hematuria) [x] Skin/Breast (moles, rash, lumps, nipple changes) Pertinent Positives: See HPI Pertinent Negatives: See HPI Physical Exam: BP (!) 171/89 Pulse (!) 54 Ht 6' Wt 77 kg (169 lb 12.8 oz) SpO2 96% BMI 23.03 kg/m Body mass index is 23.03 kg/m . Constitutional: Well nourished, well developed person in no acute distress. Ambulates without difficulty. Head: Atraumatic and normocephalic. Face: Within normal limits. Eyes: Pupils equal, round, reactive to light. Sclera white. Mouth: Moist mucous membranes, normal dentation. Neck: supple, trachea midline,no masses, no incisions. Lymphatic: No cervical or inguinal lymphadenopathy. Heart: Regular rate and rhythm. Lungs: Clear to auscultation. Abdomen: Soft, non-distended, non-tender, no heptasplenomegaly, no umbilica, incisional, femoral, or inguinal hernias. Pelvis: Stable, non-tender. Skin: Warm, moist, normal skin turgor. Peripheral Vascular: Palapable carotid, radial, and femoral pulses, no peripheral edema. Neuropsych: Alert and oriented, judgement and insight intact. Normal Gait. Assessment: 1. Viveros's esophagus with dysplasia 2. Status post laparoscopic Santos fundoplication No orders of the defined types were placed in this encounter. Plan: Schedule esophagoscopy with RFA. Risk, benefits, and alternatives were discussed with the patient detail prior to obtaining consent. Abbe Wood MD documented in this encounter [facility] 02-07-2022 History of Present illness Narrative [facility] [address] (11) [facility] [address] [facility] [address] Ary Forde is a 71 y.o. male being seen on 02/07/22 for Chief Complaint Patient presents with Follow-up RFA HPI: The patient presents today to schedule his next RFA. He has a known history of long segment Viveros's. He has been undergoing RFA, however, the treatment stalled due to recurrent hiatal hernia and ongoing regurgitation. He underwent a robotic assisted laparoscopic redo hiatal hernia repair with mesh and redo Santos fundoplication on 10/09/2021. He denies heartburn, regurgitation, or esophageal dysphagia. He underwent esophagoscopy with RFA on 12/14/2021. At that time his Atlas classification was C2-M8. He underwent treatment with the Barrx 360 express catheter and balloon based endoscopic ablation system. The patient is leaving next week for [place] and will be gone for 2 months. 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 2017 [place] GERD (gastroesophageal reflux disease) Hiatal hernia 12/15/2020 3 cm, type-I sliding Hypercholesteremia Hypertension Past Surgical History: Procedure Laterality Date ABDOMINAL HERNIA REPAIR 02/26/2014 EGD N/A 04/04/2020 Procedure: ESOPHAGOGASTRODUODENOSCOPY; Surgeon: Abbe Wood MD; Location: Main OR; Service: Gen-Robotics EGD N/A 12/15/2020 Procedure: ESOPHAGOGASTRODUODENOSCOPY WITH BIOPSY; Surgeon: Abbe Wood MD; Location: Endo; Service: General Surgery EGD N/A 12/27/2020 Procedure: ESOPHAGOSCOPY WITH BIOPSY; Surgeon: Abbe Wood MD; Location: Endo; Service: General Surgery ESOPHAGOGASTRODUODENOSCOPY 11/25/2017 Viveros's esophagus.....Thomae ESOPHAGOGASTRODUODENOSCOPY 12/21/2019 [place] ESOPHAGOSCOPY N/A 01/02/2021 Procedure: ESOPHAGOSCOPY WITH RFA; Surgeon: Abbe Wood MD; Location: Endo; Service: Gastroenterology ESOPHAGOSCOPY N/A 07/04/2021 Procedure: ESOPHAGOSCOPY; Surgeon: Abbe Wood MD; Location: Endo; Service: Gastroenterology ESOPHAGOSCOPY N/A 07/18/2021 Procedure: ESOPHAGOSCOPY WITH RFA; Surgeon: Abbe Wood MD; Location: Endo; Service: Gastroenterology ESOPHAGOSCOPY N/A 05/01/2021 Procedure: ESOPHAGOSCOPY WITH RFA; Surgeon: Abbe Wood MD; Location: Endo; Service: Gastroenterology ESOPHAGOSCOPY N/A 09/12/2021 Procedure: ESOPHAGOSCOPY WITH RFA; Surgeon: Abbe Wood MD; Location: Endo; Service: Gastroenterology ESOPHAGOSCOPY N/A 12/14/2021 Procedure: ESOPHAGOSCOPY WITH RFA; Surgeon: Abbe Wood MD; Location: Endo; Service: Gastroenterology HERNIA REPAIR Right 1998 Inguinal with mesh SANTOS FUNDOPLICATION ROBOT ASSISTED N/A 10/09/2021 Procedure: REDO HIATAL HERNIA REPAIR WITH YVES AND REDO SANTOS FUNDOPLICATION ROBOTIC XI; Surgeon: Abbe Wood MD; Location: Main OR; Service: [employer] REPAIR HERNIA HIATAL WITH SPHINCTER AUGMENTATION ROBOTIC XI N/A 04/04/2020 Procedure: REPAIR HERNIA HIATAL WITH mesh, lysis of adhesions and santos fundoplication ROBOTIC XI; Surgeon: Abbe Wood MD; Location: Main OR; Service: [employer] No Known Allergies Current Outpatient Medications Medication Sig Dispense Refill amLODIPine (NORVASC) 10 MG tablet Take 10 mg by mouth every morning . cholecalciferol, vitamin D3, 1,000 unit tablet Take 1,000 Units by mouth every morning . cyanocobalamin, vitamin B-12, 2,000 mcg Tab Take 2,000 mcg by mouth every morning . Eliquis 5 mg Tab ezetimibe-simvastatin (VYTORIN) 10-20 mg per tablet Take 1 tablet by mouth every night at bedtime . No current facility-administered medications for this visit. Social History Tobacco Use Smoking status: Never Smokeless tobacco: Never Vaping Use Vaping Use: Never used Substance Use Topics Alcohol use: Yes Alcohol/week: 1.0 - 3.0 standard drink Types: 1 - 3 Drinks containing 0.5 oz of alcohol per week Drug use: Never Family History Problem Relation Age of Onset Skin cancer Mother Heart disease Father Hypertension Father Hyperlipidemia Father REVIEW OF SYSTEMS Pertinent positives are listed in HPI, PMSH, SH, ALL, otherwise all systems reviewed below are negative. The following systems were reviewed: [x] Const (fevers, chills, wt. loss, fatigue) [x] CV (HTN, CP, HOPKINS, edema, DVT) [x] Resp (SOB, pleurisy, asthma, apnea) [x] GI (N, V, D, C, M, abd pain, appetite) [x] Musc (back pain, joint stiffness, gout) [x] Neuro (seizures, syncope, paralysis) [x] Psych (depression, anxiety) [x] Endo (hot/cold intol, polyuria[DM]) [x] Hem/Lymph (Anemia, LA, bleeding) [x] Allerg/Immun (seasonal, immuniz) [x] Eyes (diplopia, cataracts) [x] ENT/mouth (dysphagia, epistaxis) [x] (dysuria, hematuria) [x] Skin/Breast (moles, rash, lumps, nipple changes) Pertinent Positives: See HPI Pertinent Negatives: See HPI Physical Exam: BP (!) 154/85 Pulse 69 Ht 6' Wt 84.8 kg (187 lb) SpO2 94% BMI 25.36 kg/m Body mass index is 25.36 kg/m . Constitutional: Well nourished, well developed person in no acute distress. Ambulates without difficulty. Head: Atraumatic and normocephalic. Face: Within normal limits. Eyes: Pupils equal, round, reactive to light. Sclera white. Mouth: Moist mucous membranes, normal dentation. Neck: supple, trachea midline,no masses, no incisions. Lymphatic: No cervical or inguinal lymphadenopathy. Heart: Regular rate and rhythm. Lungs: Clear to auscultation. Abdomen: Soft, non-distended, non-tender, no heptasplenomegaly, no umbilica, incisional, femoral, or inguinal hernias. Pelvis: Stable, non-tender. Skin: Warm, moist, normal skin turgor. Peripheral Vascular: Palapable carotid, radial, and femoral pulses, no peripheral edema. Neuropsych: Alert and oriented, judgement and insight intact. Normal Gait. Assessment: 1. Viveros's esophagus with dysplasia 2. Status post laparoscopic Santos fundoplication No orders of the defined types were placed in this encounter. Plan: Schedule esophagoscopy with RFA. Risk, benefits, and alternatives were discussed with the patient in detail prior to obtaining consent. Abbe Wood MD documented in this encounter [place] [id number] History of Present illness Narrative [facility] [address] (11) [facility] [address] [facility] [id number] Ary Forde is a 71 y.o. male being seen on 11/23/21 for Chief Complaint Patient presents with Follow-up 4 week hiatal hernia repair check HPI: The patient presents today for second postoperative visit and to update his history and physical prior to undergoing his next RFA treatment. He has a known history of long segment Viveros's. He has been undergoing RFA, however, the treatment stalled due to recurrent hiatal hernia and ongoing regurgitation. He underwent a robotic assisted laparoscopic redo hiatal hernia repair with mesh and redo Santos fundoplication on 10/09/2021. He denies heartburn, regurgitation, or esophageal dysphagia. He is tolerating a regular diet. He says he feels a lot better. He has been able to put some weight back on over the past few weeks. 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 2017 [place] GERD (gastroesophageal reflux disease) Hiatal hernia 12/15/2020 3 cm, type-I sliding Hypercholesteremia Hypertension Past Surgical History: Procedure Laterality Date ABDOMINAL HERNIA REPAIR 02/26/2014 EGD N/A 04/04/2020 Procedure: ESOPHAGOGASTRODUODENOSCOPY; Surgeon: Abbe Wood MD; Location: [facility] OR; Service: Gen-Robotics EGD N/A 12/15/2020 Procedure: ESOPHAGOGASTRODUODENOSCOPY WITH BIOPSY; Surgeon: Abbe Wood MD; Location: Endo; Service: General Surgery EGD N/A 12/27/2020 Procedure: ESOPHAGOSCOPY WITH BIOPSY; Surgeon: Abbe Wood MD; Location: Endo; Service: General Surgery ESOPHAGOGASTRODUODENOSCOPY 11/25/2017 Viveros's esophagus.....[facility] ESOPHAGOGASTRODUODENOSCOPY 12/21/2019 [facility] ESOPHAGOSCOPY N/A 01/02/2021 Procedure: ESOPHAGOSCOPY WITH RFA; Surgeon: Abbe Wood MD; Location: Endo; Service: Gastroenterology ESOPHAGOSCOPY N/A 07/04/2021 Procedure: ESOPHAGOSCOPY; Surgeon: Abbe Wood MD; Location: Endo; Service: Gastroenterology ESOPHAGOSCOPY N/A 07/18/2021 Procedure: ESOPHAGOSCOPY WITH RFA; Surgeon: Abbe Wood MD; Location: Endo; Service: Gastroenterology ESOPHAGOSCOPY N/A 05/01/2021 Procedure: ESOPHAGOSCOPY WITH RFA; Surgeon: Abbe Wood MD; Location: Endo; Service: Gastroenterology ESOPHAGOSCOPY N/A 09/12/2021 Procedure: ESOPHAGOSCOPY WITH RFA; Surgeon: Abbe Wood MD; Location: Endo; Service: Gastroenterology HERNIA REPAIR Right 1998 Inguinal with mesh SANTOS FUNDOPLICATION ROBOT ASSISTED N/A 10/09/2021 Procedure: REDO HIATAL HERNIA REPAIR WITH YVES AND REDO SANTOS FUNDOPLICATION ROBOTIC XI; Surgeon: Abbe Wood MD; Location: [facility] OR; Service: Gen-Robotics REPAIR HERNIA HIATAL WITH SPHINCTER AUGMENTATION ROBOTIC XI N/A 04/04/2020 Procedure: REPAIR HERNIA HIATAL WITH mesh, lysis of adhesions and santos fundoplication ROBOTIC XI; Surgeon: Abbe Wood MD; Location: [facility] OR; Service: Gen-Robotics No Known Allergies Current Outpatient Medications Medication Sig Dispense Refill amLODIPine (NORVASC) 10 MG tablet Take 10 mg by mouth every morning . cholecalciferol, vitamin D3, 1,000 unit tablet Take 1,000 Units by mouth every morning . cyanocobalamin, vitamin B-12, 2,000 mcg Tab Take 2,000 mcg by mouth every morning . ezetimibe-simvastatin (VYTORIN) 10-20 mg per tablet Take 1 tablet by mouth every night at bedtime . No current facility-administered medications for this visit. Social History Tobacco Use Smoking status: Never Smokeless tobacco: Never Vaping Use Vaping Use: Never used Substance Use Topics Alcohol use: Yes Alcohol/week: 1.0 - 3.0 standard drink Types: 1 - 3 Drinks containing 0.5 oz of alcohol per week Drug use: Never Family History Problem Relation Age of Onset Skin cancer Mother Heart disease Father Hypertension Father Hyperlipidemia Father REVIEW OF SYSTEMS Pertinent positives are listed in HPI, PMSH, SH, ALL, otherwise all systems reviewed below are negative. The following systems were reviewed: [x] Const (fevers, chills, wt. loss, fatigue) [x] CV (HTN, CP, HOPKINS, edema, DVT) [x] Resp (SOB, pleurisy, asthma, apnea) [x] GI (N, V, D, C, M, abd pain, appetite) [x] Musc (back pain, joint stiffness, gout) [x] Neuro (seizures, syncope, paralysis) [x] Psych (depression, anxiety) [x] Endo (hot/cold intol, polyuria[DM]) [x] Hem/Lymph (Anemia, LA, bleeding) [x] Allerg/Immun (seasonal, immuniz) [x] Eyes (diplopia, cataracts) [x] ENT/mouth (dysphagia, epistaxis) [x] (dysuria, hematuria) [x] Skin/Breast (moles, rash, lumps, nipple changes) Pertinent Positives: See HPI Pertinent Negatives: See HPI Physical Exam: BP (!) 157/89 Pulse 66 Wt 82.6 kg (182 lb) BMI 24.68 kg/m Body mass index is 24.68 kg/m . Constitutional: Well nourished, well developed person in no acute distress. Ambulates without difficulty. Head: Atraumatic and normocephalic. Face: Within normal limits. Eyes: Pupils equal, round, reactive to light. Sclera white. Mouth: Moist mucous membranes, normal dentation. Neck: supple, trachea midline,no masses, no incisions. Lymphatic: No cervical or inguinal lymphadenopathy. Heart: Regular rate and rhythm. Lungs: Clear to auscultation. Abdomen: Soft, non-distended, non-tender, no heptasplenomegaly, no umbilica, incisional, femoral, or inguinal hernias. Pelvis: Stable, non-tender. Skin: Warm, moist, normal skin turgor. Peripheral Vascular: Palapable carotid, radial, and femoral pulses, no peripheral edema. Neuropsych: Alert and oriented, judgement and insight intact. Normal Gait. Assessment: 1. Status post laparoscopic Santos fundoplication 2. Viveros's esophagus with dysplasia No orders of the defined types were placed in this encounter. Plan: Proceed with esophagoscopy and RFA on 12/14/2021. Risk, benefits, and alternatives were discussed with the patient in detail prior to obtaining consent. Abbe Wood MD documented in this encounter [facility] 10-24-2021 History of Present illness Narrative [facility] PATIENT: Ary Forde DATE / TIME: 10/24/21 9:03 AM POS: Office AGE: 71 y.o. : 1950 RACE: [1] SEX: male PCP: Dgao Mcnamara MD REFERRAL: No ref. provider found SUBJECTIVE: Patient presents for first post operative visit after undergoing a Robotic assisted laparoscopic redo hiatal hernia repair with mesh and redo Santos fundoplication. He does have a known history of long segment Viveros's with dysplasia. He has been undergoing RFA treatments but treatments stalled secondary to disrupted Santos and recurrent hiatal hernia. His last Atlas classification was given C10-M10, His last RFA treatment was 09/12/21. Today he denies heartburn, regurgitation, and dysphagia. He is tolerating a full liquid diet and has just started on soft foods without difficulty. He has lost about 5 pounds. OBJECTIVE: BP (!) 144/84 Pulse 61 Ht 6' Wt 79.3 kg (174 lb 14.4 oz) SpO2 98% BMI 23.72 kg/m Abdomen soft, nontender, nondistended. Incisions well approximated with katey. ASSESSMENT: S/P Robotic assisted laparoscopic redo hiatal hernia repair with mesh and redo Santos fundoplication PLAN: Diet per [facility] protocol Continue lifting restrictions Katey removed Schedule esophagoscopy with RFA Follow up with Dr. Wood in 4 weeks documented in this encounter [facility] 08-16-2021 History of Present illness Narrative [facility] [address] (11) [facility] [address] [facility] [phone] Ary Forde is a 71 y.o. male being seen on 08/16/21 for Chief Complaint Patient presents with Follow-up EGD with RFA HPI: The patient presents today to schedule his next RFA. He has a known history of long segment Viveros's. He previously underwent a robotic assisted laparoscopic hiatal hernia repair with mesh and Santos fundoplication. He had a recurrent hiatal hernia. He started RFA on 05/01/2021. His most recent treatment was on 07/18/2021. At that time his Atlas classification was C6-M7. He underwent treatment with the Barrx 360 express catheter and balloon based endoscopic ablation system. He has very infrequent heartburn. He denies significant regurgitation. He does have some esophageal dysphagia. He avoids greasy foods because they are very difficult to get down. 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 2017 [facility] GERD (gastroesophageal reflux disease) Hiatal hernia 12/15/2020 3 cm, type-I sliding Hypercholesteremia Hypertension Past Surgical History: Procedure Laterality Date ABDOMINAL HERNIA REPAIR 02/26/2014 EGD N/A 04/04/2020 Procedure: ESOPHAGOGASTRODUODENOSCOPY; Surgeon: Abbe Wood MD; Location: [facility] OR; Service: Gen-Robotics EGD N/A 12/15/2020 Procedure: ESOPHAGOGASTRODUODENOSCOPY WITH BIOPSY; Surgeon: Abbe Wood MD; Location: Endo; Service: General Surgery EGD N/A 12/27/2020 Procedure: ESOPHAGOSCOPY WITH BIOPSY; Surgeon: Abbe Wood MD; Location: Endo; Service: General Surgery ESOPHAGOGASTRODUODENOSCOPY 11/25/2017 Viveros's esophagus.....[facility]ae ESOPHAGOGASTRODUODENOSCOPY 12/21/2019 [facility] ESOPHAGOSCOPY N/A 01/02/2021 Procedure: ESOPHAGOSCOPY WITH RFA; Surgeon: Abbe Wood MD; Location: Endo; Service: Gastroenterology ESOPHAGOSCOPY N/A 07/04/2021 Procedure: ESOPHAGOSCOPY; Surgeon: Abbe Wood MD; Location: Endo; Service: Gastroenterology ESOPHAGOSCOPY N/A 07/18/2021 Procedure: ESOPHAGOSCOPY WITH RFA; Surgeon: Abbe Wood MD; Location: Endo; Service: Gastroenterology ESOPHAGOSCOPY N/A 05/01/2021 Procedure: ESOPHAGOSCOPY WITH RFA; Surgeon: Abbe Wood MD; Location: Endo; Service: Gastroenterology HERNIA REPAIR Right 1998 Inguinal with mesh REPAIR HERNIA HIATAL WITH SPHINCTER AUGMENTATION ROBOTIC XI N/A 04/04/2020 Procedure: REPAIR HERNIA HIATAL WITH mesh, lysis of adhesions and santos fundoplication ROBOTIC XI; Surgeon: Abbe Wood MD; Location: [facility] OR; Service: Gen-Robotics No Known Allergies Current Outpatient Medications Medication Sig Dispense Refill amLODIPine (NORVASC) 10 MG tablet Take 10 mg by mouth every morning . cholecalciferol, vitamin D3, 1,000 unit tablet Take 1,000 Units by mouth every morning . cyanocobalamin, vitamin B-12, 2,000 mcg Tab Take 2,000 mcg by mouth every morning . ezetimibe-simvastatin (VYTORIN) 10-20 mg per tablet Take 1 tablet by mouth every night at bedtime . omeprazole (PRILOSEC) 40 MG capsule Take 1 (one) capsule (40 mg total) by mouth daily . 90 capsule 2 sucralfate (Carafate) 100 mg/mL suspension Take 10 mL (1 g total) by mouth 4 (four) times a day . 400 mL 2 sucralfate (Carafate) 100 mg/mL suspension Take 10 mL (1 g total) by mouth 4 (four) times a day . 400 mL 2 No current facility-administered medications for this visit. Social History Tobacco Use Smoking status: Never Smokeless tobacco: Never Vaping Use Vaping Use: Never used Substance Use Topics Alcohol use: Yes Comment: OCCAS - one drink 2 to 3 times a week Drug use: Never Family History Problem Relation Age of Onset Skin cancer Mother Heart disease Father Hypertension Father Hyperlipidemia Father REVIEW OF SYSTEMS Pertinent positives are listed in HPI, PMSH, SH, ALL, otherwise all systems reviewed below are negative. The following systems were reviewed: [x] Const (fevers, chills, wt. loss, fatigue) [x] CV (HTN, CP, HOPKINS, edema, DVT) [x] Resp (SOB, pleurisy, asthma, apnea) [x] GI (N, V, D, C, M, abd pain, appetite) [x] Musc (back pain, joint stiffness, gout) [x] Neuro (seizures, syncope, paralysis) [x] Psych (depression, anxiety) [x] Endo (hot/cold intol, polyuria[DM]) [x] Hem/Lymph (Anemia, LA, bleeding) [x] Allerg/Immun (seasonal, immuniz) [x] Eyes (diplopia, cataracts) [x] ENT/mouth (dysphagia, epistaxis) [x] (dysuria, hematuria) [x] Skin/Breast (moles, rash, lumps, nipple changes) Pertinent Positives: See HPI Pertinent Negatives: See HPI Physical Exam: BP (!) 169/82 Pulse 72 Wt 84.8 kg (187 lb) BMI 25.36 kg/m Body mass index is 25.36 kg/m . Constitutional: Well nourished, well developed person in no acute distress. Ambulates without difficulty. Head: Atraumatic and normocephalic. Face: Within normal limits. Eyes: Pupils equal, round, reactive to light. Sclera white. Mouth: Moist mucous membranes, normal dentation. Neck: supple, trachea midline,no masses, no incisions. Lymphatic: No cervical or inguinal lymphadenopathy. Heart: Regular rate and rhythm. Lungs: Clear to auscultation. Abdomen: Soft, non-distended, non-tender, no heptasplenomegaly, no umbilica, incisional, femoral, or inguinal hernias. Pelvis: Stable, non-tender. Skin: Warm, moist, normal skin turgor. Peripheral Vascular: Palapable carotid, radial, and femoral pulses, no peripheral edema. Neuropsych: Alert and oriented, judgement and insight intact. Normal Gait. Assessment: 1. Viveros's esophagus with dysplasia 2. Status post laparoscopic Santos fundoplication 3. Slipped Santos fundoplication No orders of the defined types were placed in this encounter. Plan: Schedule esophagoscopy with RFA. Risk, benefits, and alternatives were discussed with the patient detail prior to obtaining consent Abbe Wood MD documented in this encounter [facility] 07-18-2021 History of Present illness Narrative Prior auth completed for carafate suspension at this time via cover my meds documented in this encounter [facility] 05-17-2021 History of Present illness Narrative [facility] [address] (11) [facility] [address] [facility] [phone] Ary Forde is a 71 y.o. 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 I discussed with the patient that while we practice appropriate precautions consistent with prevailing medical standards, any contact with any person in any setting at this time presents a risk of transmission and contraction of COVID-19. The patient was also informed that COVID-19 testing within 72 hours of the procedure will be required. The patient wishes to proceed. The patient returns after undergoing RFA. He has a known history of long segment Viveros's indeterminate for dysplasia. On 04/04/2020 he underwent a robotic assisted laparoscopic hiatal hernia repair with mesh and Santos fundoplication. On 12/15/2020 he underwent an EGD. At that time he was found to have Viveros's esophagus with a Atlas classification of C5-M12. There was also evidence of slipped Santos with recurrent hiatal hernia. Biopsies revealed Viveros's indeterminate for dysplasia. He underwent repeat EGD with biopsy on 12/27/2020. Biopsies again came back indeterminate for dysplasia. On 01/02/2021 he underwent RFA. On 05/01/2021 he returned for a second RFA treatment. At that time his Atlas classification was noted to be C 10-M10. He again underwent treatment with the Barrx-360 express balloon catheter system. He returns today for follow-up. He says that his swallowing has improved. He also tells me that he has had significantly less secretions and phlegm since the most recent treatment. There was increased overall amount of Viveros's noted on the most recent scope. 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 2017 [facility] GERD (gastroesophageal reflux disease) Hiatal hernia 12/15/2020 3 cm, type-I sliding Hypercholesteremia Hypertension Past Surgical History: Procedure Laterality Date ABDOMINAL HERNIA REPAIR 02/26/2014 EGD N/A 04/04/2020 Procedure: ESOPHAGOGASTRODUODENOSCOPY; Surgeon: Abbe Wood MD; Location: [facility] OR; Service: Gen-Robotics EGD N/A 12/15/2020 Procedure: ESOPHAGOGASTRODUODENOSCOPY WITH BIOPSY; Surgeon: Abbe Wood MD; Location: Endo; Service: General Surgery EGD N/A 12/27/2020 Procedure: ESOPHAGOSCOPY WITH BIOPSY; Surgeon: Abbe Wood MD; Location: Endo; Service: General Surgery ESOPHAGOGASTRODUODENOSCOPY 11/25/2017 Viveros's esophagus.....[facility] ESOPHAGOGASTRODUODENOSCOPY 12/21/2019 [facility] ESOPHAGOSCOPY N/A 01/02/2021 Procedure: ESOPHAGOSCOPY WITH RFA; Surgeon: Abbe Wood MD; Location: Endo; Service: Gastroenterology ESOPHAGOSCOPY N/A 05/01/2021 Procedure: ESOPHAGOSCOPY WITH RFA; Surgeon: Abbe Wood MD; Location: Endo; Service: Gastroenterology HERNIA REPAIR Right 1998 Inguinal with mesh REPAIR HERNIA HIATAL WITH SPHINCTER AUGMENTATION ROBOTIC XI N/A 04/04/2020 Procedure: REPAIR HERNIA HIATAL WITH mesh, lysis of adhesions and santos fundoplication ROBOTIC XI; Surgeon: Abbe Wood MD; Location: [facility] OR; Service: Gen-Robotics No Known Allergies Current Outpatient Medications Medication Sig Dispense Refill amLODIPine (NORVASC) 10 MG tablet Take 10 mg by mouth every morning . cholecalciferol, vitamin D3, 1,000 unit tablet Take 1,000 Units by mouth every morning . cyanocobalamin, vitamin B-12, 2,000 mcg Tab Take 2,000 mcg by mouth every morning . ezetimibe-simvastatin (VYTORIN) 10-20 mg per tablet Take 1 tablet by mouth every night at bedtime . sucralfate (Carafate) 100 mg/mL suspension Take 10 mL (1 g total) by mouth 4 (four) times a day . 400 mL 2 omeprazole (PRILOSEC) 40 MG capsule Take 1 (one) capsule (40 mg total) by mouth daily . 90 capsule 2 No current facility-administered medications for this visit. Social History Tobacco Use Smoking status: Never Smoker Smokeless tobacco: Never Used Vaping Use Vaping Use: Never used Substance Use Topics Alcohol use: Yes Comment: OCCAS - one drink 2 to 3 times a week Drug use: Never Family History Problem Relation Age of Onset Skin cancer Mother Heart disease Father Hypertension Father Hyperlipidemia Father REVIEW OF SYSTEMS Pertinent positives are listed in HPI, PMSH, SH, ALL, otherwise all systems reviewed below are negative. The following systems were reviewed: [x] Const (fevers, chills, wt. loss, fatigue) [x] CV (HTN, CP, HOPKINS, edema, DVT) [x] Resp (SOB, pleurisy, asthma, apnea) [x] GI (N, V, D, C, M, abd pain, appetite) [x] Musc (back pain, joint stiffness, gout) [x] Neuro (seizures, syncope, paralysis) [x] Psych (depression, anxiety) [x] Endo (hot/cold intol, polyuria[DM]) [x] Hem/Lymph (Anemia, LA, bleeding) [x] Allerg/Immun (seasonal, immuniz) [x] Eyes (diplopia, cataracts) [x] ENT/mouth (dysphagia, epistaxis) [x] (dysuria, hematuria) [x] Skin/Breast (moles, rash, lumps, nipple changes) Pertinent Positives: See HPI Pertinent Negatives: See HPI Physical Exam: BP (!) 162/85 Pulse 76 Ht 6' Wt 86.9 kg (191 lb 8 oz) SpO2 95% BMI 25.97 kg/m Body mass index is 25.97 kg/m . Constitutional: Well nourished, well developed person in no acute distress. Ambulates without difficulty. Head: Atraumatic and normocephalic. Face: Within normal limits. Eyes: Pupils equal, round, reactive to light. Sclera white. Mouth: Moist mucous membranes, normal dentation. Neck: supple, trachea midline,no masses, no incisions. Lymphatic: No cervical or inguinal lymphadenopathy. Heart: Regular rate and rhythm. Lungs: Clear to auscultation. Abdomen: Soft, non-distended, non-tender, no heptasplenomegaly, no umbilica, incisional, femoral, or inguinal hernias. Pelvis: Stable, non-tender. Skin: Warm, moist, normal skin turgor. Peripheral Vascular: Palapable carotid, radial, and femoral pulses, no peripheral edema. Neuropsych: Alert and oriented, judgement and insight intact. Normal Gait. Assessment: 1. Viveros's esophagus with dysplasia 2. Status post laparoscopic Santos fundoplication 3. Slipped Santos fundoplication 4. Hiatal hernia No orders of the defined types were placed in this encounter. Plan: 1. I had a detailed discussion with the patient regarding his current clinical status. He has long segment Viveros's indeterminate for dysplasia. I did not see the desired effect from his most recent RFA. He does have a recurrent hiatal hernia and slipped Santos. We discussed proceeding to surgery to repair the hernia and redo his fundoplication versus close observation with scheduled esophagoscopy and RFA in mid June 2021. The patient would like to undergo esophagoscopy with RFA. He is in agreement that surgery would be appropriate for the next step if there is not significant improvement from the most recent RFA. 2. Schedule esophagoscopy with RFA. Abbe Wood MD documented in this encounter [facility] 02-08-2021 History of Present illness Narrative [facility] PATIENT: Ary Forde DATE / TIME: 02/08/21 8:22 AM POS: Office AGE: 70 y.o. : 1950 RACE: [1] SEX: male PCP: Dago Mcnamara MD REFERRAL: No ref. provider found TOS: SUBJECTIVE: The patient returns today after undergoing RFA with the express 360 balloon on 01/02/2021 for long segment Viveros's indeterminate for dysplasia. He says he had some difficulty swallowing in the first 24 hours after the treatment. He had one episode of emesis the morning following the treatment. After that he felt a lot better and had no issues since. He underwent a robotic assisted laparoscopic hiatal hernia repair with mesh and Santos fundoplication on 04/04/2020. He underwent a surveillance EGD on 12/15/2020. That EGD revealed visible evidence of intestinal metaplasia with a Atlas classification of C5 M12. Biopsies showed Viveros's esophagus indeterminate for dysplasia. He also had a small recurrent sliding hiatal hernia. Repeat endoscopy with biopsy on 12/27/2020 again showed Viveros's esophagus indeterminate for dysplasia. Based on these findings, the patient underwent the above-stated RFA. OBJECTIVE: BP (!) 149/92 Pulse 94 Ht 6' Wt 87.7 kg (193 lb 4.8 oz) SpO2 98% BMI 26.22 kg/m ASSESSMENT: Recurrent hiatal hernia status Santos post fundoplication, long segment Viveros's indeterminate for dysplasia status post initial RFA PLAN: 1. The patient will be due for another RFA treatmen on 03/04/2021. The patient will be in [place] at that time and wants to delay his next treatment until the end of April. I did discuss the potential downside to delaying treatment. The patient expressed understanding but still wants to wait until he gets back from [place] at the end of April 2021. documented in this encounter [facility] 10-21-2020 History of Present illness Narrative [facility] [address] (11) [facility] [address] [facility] [id number] Ary Forde is a 70 y.o. male being seen on 10/21/20 for Chief Complaint Patient presents with EGD HPI: PROCEDURALIST ATTESTATION OF OUTPATIENT ELECTIVE CASE DURING COVID PANDEMIC The proposed procedure is outpatient with an expected discharge on the same day as the surgery / procedure. I discussed with the patient that while we practice appropriate precautions consistent with prevailing medical standards, any contact with any person in any setting at this time presents a risk of transmission and contraction of COVID-19. The patient was also informed that COVID-19 testing within 72 hours of the procedure will be required. The patient wishes to proceed. The patient presents today to schedule a 6-month surveillance EGD. He has a known history of long segment Viveros's without dysplasia and a large paraesophageal hiatal hernia. He underwent a robotic assisted laparoscopic hiatal hernia repair with mesh and Santos fundoplication on 04/04/2020. Overall he has done well since surgery. He experienced mild dysphagia of pills for the first 5 or 6 months after surgery. Over the past month or so he says the dysphagia has resolved. He denies heartburn or regurgitation. He has been experiencing some postnasal drip and mucus in the back of the throat during allergy season. He is tolerating a regular diet. His weight is stable. Past Medical History: Diagnosis Date Viveros's esophagus 2018 [facility] Hypercholesteremia Hypertension Past Surgical History: Procedure Laterality Date ABDOMINAL HERNIA REPAIR 02/26/2014 EGD N/A 04/04/2020 Procedure: ESOPHAGOGASTRODUODENOSCOPY; Surgeon: Abbe Wood MD; Location: Main OR; Service: Gen-Robotics ESOPHAGOGASTRODUODENOSCOPY 11/25/2017 Viveros's esophagus.....[facility] ESOPHAGOGASTRODUODENOSCOPY 12/21/2019 [facility] HERNIA REPAIR Right 1998 Inguinal with mesh REPAIR HERNIA HIATAL WITH SPHINCTER AUGMENTATION ROBOTIC XI N/A 04/04/2020 Procedure: REPAIR HERNIA HIATAL WITH mesh, lysis of adhesions and santos fundoplication ROBOTIC XI; Surgeon: Abbe Wood MD; Location: Main OR; Service: Gen-Robotics No Known Allergies Current Outpatient Medications Medication Sig Dispense Refill amLODIPine (NORVASC) 10 MG tablet Take 10 mg by mouth daily . cholecalciferol, vitamin D3, 1,000 unit tablet Take 1,000 Units by mouth daily . cyanocobalamin, vitamin B-12, 2,000 mcg Tab Take by mouth daily . ezetimibe-simvastatin (VYTORIN) 10-20 mg per tablet Take 1 tablet by mouth every night at bedtime . No current facility-administered medications for this visit. Social History Tobacco Use Smoking status: Never Smoker Smokeless tobacco: Never Used Vaping Use Vaping Use: Never used Substance Use Topics Alcohol use: Yes Comment: OCCAS Drug use: Never Family History Problem Relation Age of Onset Skin cancer Mother Heart disease Father Hypertension Father Hyperlipidemia Father REVIEW OF SYSTEMS Pertinent positives are listed in HPI, PMSH, SH, ALL, otherwise all systems reviewed below are negative. The following systems were reviewed: [x] Const (fevers, chills, wt. loss, fatigue) [x] CV (HTN, CP, HOPKINS, edema, DVT) [x] Resp (SOB, pleurisy, asthma, apnea) [x] GI (N, V, D, C, M, abd pain, appetite) [x] Musc (back pain, joint stiffness, gout) [x] Neuro (seizures, syncope, paralysis) [x] Psych (depression, anxiety) [x] Endo (hot/cold intol, polyuria[DM]) [x] Hem/Lymph (Anemia, LA, bleeding) [x] Allerg/Immun (seasonal, immuniz) [x] Eyes (diplopia, cataracts) [x] ENT/mouth (dysphagia, epistaxis) [x] (dysuria, hematuria) [x] Skin/Breast (moles, rash, lumps, nipple changes) Pertinent Positives: See HPI Pertinent Negatives: See HPI Physical Exam: BP 142/78 Pulse 63 Ht 6' Wt 83.6 kg (184 lb 6.4 oz) SpO2 95% BMI 25.01 kg/m Body mass index is 25.01 kg/m . Constitutional: Well nourished, well developed person in no acute distress. Ambulates without difficulty. Head: Atraumatic and normocephalic. Face: Within normal limits. Eyes: Pupils equal, round, reactive to light. Sclera white. Mouth: Moist mucous membranes, normal dentation. Neck: supple, trachea midline,no masses, no incisions. Lymphatic: No cervical or inguinal lymphadenopathy. Heart: Regular rate and rhythm. Lungs: Clear to auscultation. Abdomen: Soft, non-distended, non-tender, no heptasplenomegaly, no umbilica, incisional, femoral, or inguinal hernias. Pelvis: Stable, non-tender. Skin: Warm, moist, normal skin turgor. Peripheral Vascular: Palapable carotid, radial, and femoral pulses, no peripheral edema. Neuropsych: Alert and oriented, judgement and insight intact. Normal Gait. Assessment: 1. History of Viveros's esophagus 2. Status post laparoscopic Santos fundoplication No orders of the defined types were placed in this encounter. Plan: EGD with Biopsy Abbe Wood MD documented in this encounter [facility] 10-21-2020 History of Present illness Narrative [facility] [address] ([address]) [facility] [address] [facility] [id number] Ary Forde is a 70 y.o. male being seen on 10/21/20 for Chief Complaint Patient presents with EGD HPI: PROCEDURALIST ATTESTATION OF OUTPATIENT ELECTIVE CASE DURING COVID PANDEMIC The proposed procedure is outpatient with an expected discharge on the same day as the surgery / procedure. I discussed with the patient that while we practice appropriate precautions consistent with prevailing medical standards, any contact with any person in any setting at this time presents a risk of transmission and contraction of COVID-19. The patient was also informed that COVID-19 testing within 72 hours of the procedure will be required. The patient wishes to proceed. The patient presents today to schedule a 6-month surveillance EGD. He has a known history of long segment Viveros's without dysplasia and a large paraesophageal hiatal hernia. He underwent a robotic assisted laparoscopic hiatal hernia repair with mesh and Santos fundoplication on 04/04/2020. Overall he has done well since surgery. He experienced mild dysphagia of pills for the first 5 or 6 months after surgery. Over the past month or so he says the dysphagia has resolved. He denies heartburn or regurgitation. He has been experiencing some postnasal drip and mucus in the back of the throat during allergy season. He is tolerating a regular diet. His weight is stable. Past Medical History: Diagnosis Date Viveros's esophagus 2017 Cecille Hypercholesteremia Hypertension Past Surgical History: Procedure Laterality Date ABDOMINAL HERNIA REPAIR 02/26/2014 EGD N/A 04/04/2020 Procedure: ESOPHAGOGASTRODUODENOSCOPY; Surgeon: bAbe Wood MD; Location: Main OR; Service: Gen-Robotics ESOPHAGOGASTRODUODENOSCOPY 11/25/2017 Viveros's esophagus.....Thomae ESOPHAGOGASTRODUODENOSCOPY 12/21/2019 [place] HERNIA REPAIR Right 1998 Inguinal with mesh REPAIR HERNIA HIATAL WITH SPHINCTER AUGMENTATION ROBOTIC XI N/A 04/04/2020 Procedure: REPAIR HERNIA HIATAL WITH mesh, lysis of adhesions and santos fundoplication ROBOTIC XI; Surgeon: Abbe Wood MD; Location: Main OR; Service: Gen-Robotics No Known Allergies Current Outpatient Medications Medication Sig Dispense Refill amLODIPine (NORVASC) 10 MG tablet Take 10 mg by mouth daily . cholecalciferol, vitamin D3, 1,000 unit tablet Take 1,000 Units by mouth daily . cyanocobalamin, vitamin B-12, 2,000 mcg Tab Take by mouth daily . ezetimibe-simvastatin (VYTORIN) 10-20 mg per tablet Take 1 tablet by mouth every night at bedtime . No current facility-administered medications for this visit. Social History Tobacco Use Smoking status: Never Smoker Smokeless tobacco: Never Used Vaping Use Vaping Use: Never used Substance Use Topics Alcohol use: Yes Comment: OCCAS Drug use: Never Family History Problem Relation Age of Onset Skin cancer Mother Heart disease Father Hypertension Father Hyperlipidemia Father REVIEW OF SYSTEMS Pertinent positives are listed in HPI, PMSH, SH, ALL, otherwise all systems reviewed below are negative. The following systems were reviewed: [x] Const (fevers, chills, wt. loss, fatigue) [x] CV (HTN, CP, HOPKINS, edema, DVT) [x] Resp (SOB, pleurisy, asthma, apnea) [x] GI (N, V, D, C, M, abd pain, appetite) [x] Musc (back pain, joint stiffness, gout) [x] Neuro (seizures, syncope, paralysis) [x] Psych (depression, anxiety) [x] Endo (hot/cold intol, polyuria[DM]) [x] Hem/Lymph (Anemia, LA, bleeding) [x] Allerg/Immun (seasonal, immuniz) [x] Eyes (diplopia, cataracts) [x] ENT/mouth (dysphagia, epistaxis) [x] (dysuria, hematuria) [x] Skin/Breast (moles, rash, lumps, nipple changes) Pertinent Positives: See HPI Pertinent Negatives: See HPI Physical Exam: BP 142/78 Pulse 63 Ht 6' Wt 83.6 kg (184 lb 6.4 oz) SpO2 95% BMI 25.01 kg/m Body mass index is 25.01 kg/m . Constitutional: Well nourished, well developed person in no acute distress. Ambulates without difficulty. Head: Atraumatic and normocephalic. Face: Within normal limits. Eyes: Pupils equal, round, reactive to light. Sclera white. Mouth: Moist mucous membranes, normal dentation. Neck: supple, trachea midline,no masses, no incisions. Lymphatic: No cervical or inguinal lymphadenopathy. Heart: Regular rate and rhythm. Lungs: Clear to auscultation. Abdomen: Soft, non-distended, non-tender, no heptasplenomegaly, no umbilica, incisional, femoral, or inguinal hernias. Pelvis: Stable, non-tender. Skin: Warm, moist, normal skin turgor. Peripheral Vascular: Palapable carotid, radial, and femoral pulses, no peripheral edema. Neuropsych: Alert and oriented, judgement and insight intact. Normal Gait. Assessment: 1. History of Viveros's esophagus 2. Status post laparoscopic Santos fundoplication No orders of the defined types were placed in this encounter. Plan: EGD with Biopsy Abbe Wood MD [facility] Diagnosis History of Viveros's esophagus- Primary Status post laparoscopic Santos fundoplication History of Viveros's esophagus Status post laparoscopic Santos fundoplication History of Viveros's esophagus Status post laparoscopic Santos fundoplication [facility] History of Viveros's esophagus Status post laparoscopic Santos fundoplication Elective surgery- Primary History of Viveros's esophagus Status post laparoscopic Santos fundoplication [facility] Diagnosis History of Viveros's esophagus- Primary Status post laparoscopic Santos fundoplication History of Viveros's esophagus Status post laparoscopic Santos fundoplication History of Viveros's esophagus Status post laparoscopic Santos fundoplication [facility] Diagnosis History of Viveros's esophagus- Primary Paraesophageal hiatal hernia [facility] Diagnosis History of Viveros's esophagus Paraesophageal hiatal hernia Elective surgery- Primary Elective surgery- Primary Elective surgery History of Viveros's esophagus Paraesophageal hiatal hernia [facility] Diagnosis History of Viveros's esophagus Paraesophageal hiatal hernia History of Viveros's esophagus- Primary History of Viveros's esophagus [facility] Diagnosis Viveros's esophagus with dysplasia [facility] Diagnosis Viveros's esophagus with dysplasia- Primary Status post laparoscopic Santos fundoplication Hiatal hernia Diaphragmatic hernia without mention of obstruction or gangrene Viveros's esophagus with dysplasia Status post laparoscopic Santos fundoplication Hiatal hernia Diaphragmatic hernia without mention of obstruction or gangrene [facility] Diagnosis Viveros's esophagus with dysplasia- Primary Status post laparoscopic Santos fundoplication Slipped Santos fundoplication Hiatal hernia Diaphragmatic hernia without mention of obstruction or gangrene Slipped Santos fundoplication Viveros's esophagus with dysplasia Status post laparoscopic Santos fundoplication Slipped Santos fundoplication Hiatal hernia Diaphragmatic hernia without mention of obstruction or gangrene [facility]* Diagnosis Onset Date Resolution Status Essential hypertension [facility] Work Phone: evaluation note* Diagnosis Viveros's esophagus with dysplasia- Primary Viveros's esophagus with dysplasia [facility] Diagnosis Viveros's esophagus with dysplasia- Primary Status post laparoscopic Santos fundoplication Slipped Santos fundoplication [facility] Diagnosis Encounter for surgical aftercare following surgery of digestive system- Primary [facility] Diagnosis Viveros's esophagus with dysplasia- Primary [facility] Diagnosis Status post laparoscopic Santos fundoplication- Primary Viveros's esophagus with dysplasia [facility] Viveros's esophagus with dysplasia- Primary Status post laparoscopic Santos fundoplication [facility] Diagnosis Viveros's esophagus with dysplasia- Primary Status post laparoscopic Santos fundoplication [facility] Diagnosis Viveros's esophagus with dysplasia- Primary Status post laparoscopic Santos fundoplication Status post laparoscopic Santos fundoplication [facility] Diagnosis Viveros's esophagus with dysplasia- Primary Status post laparoscopic Santos fundoplication Status post laparoscopic Santos fundoplication Viveros's esophagus with dysplasia Status post laparoscopic Santos fundoplication [facility] Diagnosis Viveros's esophagus with dysplasia- Primary Status post laparoscopic Santos fundoplication 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 Status post laparoscopic Santos fundoplication [facility] Long-segment Viveros's esophagus- Primary Status post laparoscopic Santos fundoplication [facility] Diagnosis Long-segment Viveros's esophagus- Primary Status post laparoscopic Santos fundoplication Status post laparoscopic Santos fundoplication [facility] Diagnosis Long-segment Viveros's esophagus- Primary Long-segment Viveros's esophagus [facility] Diagnosis Long-segment Viveros's esophagus- Primary Status post laparoscopic Santos fundoplication 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 Status post laparoscopic Santos fundoplication Viveros's esophagus with dysplasia documented in this encounter [facility] note* Diagnosis Long-segment Viveros's esophagus- Primary Status post laparoscopic Santos fundoplication 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 Status post laparoscopic Santos fundoplication Viveros's esophagus with dysplasia documented in this encounter [facility] note* Diagnosis Pre-op examination- Primary Complication of anesthesia, initial encounter Viveros's esophagus without dysplasia Hypertension, unspecified type Hyperlipidemia, unspecified hyperlipidemia type Gastroesophageal reflux disease, unspecified whether esophagitis present Preop examination- Primary Unspecified pre-operative examination Pre-op examination Gastroesophageal reflux disease, unspecified whether esophagitis present Hypertension, unspecified type Complication of anesthesia, initial encounter Hyperlipidemia, unspecified hyperlipidemia type Preop examination- Primary Unspecified pre-operative examination Hypertension, unspecified type Hyperlipidemia, unspecified hyperlipidemia type Slipped Santos fundoplication Long-segment Viveros's esophagus- Primary Status post laparoscopic Santos fundoplication Viveros's esophagus with dysplasia documented in this encounter [facility] note* Diagnosis Pre-op examination- Primary Complication of anesthesia, initial encounter Viveros's esophagus without dysplasia Hypertension, unspecified type Hyperlipidemia, unspecified hyperlipidemia type Gastroesophageal reflux disease, unspecified whether esophagitis present Preop examination- Primary Unspecified pre-operative examination Pre-op examination Gastroesophageal reflux disease, unspecified whether esophagitis present Hypertension, unspecified type Complication of anesthesia, initial encounter Hyperlipidemia, unspecified hyperlipidemia type Preop examination- Primary Unspecified pre-operative examination Hypertension, unspecified type Hyperlipidemia, unspecified hyperlipidemia type Slipped Santos fundoplication Long-segment Viveros's esophagus- Primary Status post laparoscopic Santos fundoplication Viveros's esophagus with dysplasia documented in this encounter [facility] note* Diagnosis Pre-op examination- Primary Complication of anesthesia, initial encounter Viveros's esophagus without dysplasia Hypertension, unspecified type Hyperlipidemia, unspecified hyperlipidemia type Gastroesophageal reflux disease, unspecified whether esophagitis present Preop examination- Primary Unspecified pre-operative examination Pre-op examination Gastroesophageal reflux disease, unspecified whether esophagitis present Hypertension, unspecified type Complication of anesthesia, initial encounter Hyperlipidemia, unspecified hyperlipidemia type Preop examination- Primary Unspecified pre-operative examination Hypertension, unspecified type Hyperlipidemia, unspecified hyperlipidemia type Slipped Santos fundoplication Viveros's esophagus with dysplasia- Primary Long-segment Viveros's esophagus Status post laparoscopic Santos fundoplication documented in this encounter [facility] Family History No Family History Records Found Relationship Condition Age at Onset Recorded Date/T german father Cardiac disease Unknown Advance Directives No Advanced Directives Records FoundDocuments on File Type Date Recorded 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 Advance Directives and Livin g Will 12/30/2019 12:00 AM Documents on File Type Date Recorded 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 Advance Directives and Living Will Documents on File Type Date Recorded 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 Advance Directives and Livin g Will 03/21/2020 12:42 PM Documents on File Type Date Recorded 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 Advance Directives and Livin g Will 04/04/2020 12:42 PM Latest Code Status on File Code Status Date Activated Date Inactivated Comments Full Code 04/04/2020 1:51 PM 04/05/2020 3:26 PM Documents on File Type Date Recorded 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 Advance Directives and Livin g Will 04/04/2020 12:42 PM Latest Code Status on File Code Status Date Activated Date Inactivated Comments Full Code 04/04/2020 1:51 PM 04/05/2020 3:26 PM Documents on File Type Date Recorded 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 Advance Directives and Livin g Will 12/15/2020 11:21 AM Documents on File Type Date Recorded 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 Advance Directives and Livin g Will 12/19/2020 11:21 AM Documents on File Type Date Recorded 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 Advance Directives and Livin g Will 12/27/2020 11:04 AM Advance Directive Response Recorded Date/ Time Advance Directives Yes February 18, 2014 11:33am Living Will Yes January 29, 017 11:11am Power of Professor Of Mechanical Engineering Yes January 29, 2017 11:11am Documents on File Type Date Recorded 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 Advance Directives and Livin g Will 07/18/2021 11:04 AM Latest Code Status on File Date Activated Date Inactivated Comments 04/04/2020 1:51 PM 04/05/2020 3:26 PM Latest Code Status on File Code Status Date Activated Date Inactivated Comments Full Code 04/04/2020 1:51 PM 04/05/2020 3:26 PM Advance Directive Response Recorded Date/ Time Advance Directives Yes December 15, 2021 8:42am Living Will Yes December 15 8:42am Power of Professor Of Mechanical Engineering Yes December 15, 2021 8:42am Date Activated Date Inactivated Comments 04/04/2020 1:51 PM 04/05/2020 3:26 PM History of Present Illness * Alvin Ochoa, [place] - 01/05/2020 9:41 AM EST [facility] [address] (11) [facility] [address] [facility] [id number] Patient Name: Ary Forde Age: 69 y.o. Gender: male Referring Physician: Araeblla Oden DO Chief Complaint Patient presents with Consult to repair hiatal hernia HPI: Patient Primary Symptoms are: heartburn, dysphagia, regurgitation, bloating and hiatal hernia Onset of Symptoms: Patient presents as a referral from Dr. Oden for repair of a large hiatal hernia. He said about 7years ago he started to have heartburn. He had a EGD at that time that showed Viveros's esophagus and a hiatal hernia. He states as of today his heartburn is infrequent and controlled on the medication. He does complain of regurgitation with trigger foods and large meals. He does have occasional dysphagia. He complains of bloating with meals. I did review images of his esophagram from 12/25/[address] Wood. It did show what looks like a Type III paraesophageal hernia with at least 70% of his intrathoracic stomach and mesoaxial rotation. His last EGD was on 12/21/[address] Oden that s howed a large paraesophageal hernia and long segment Viveros's. Biopsies were taken that showed Viveros's esophagus without dysplasia. Frequency of Symptoms: Symptoms more often with trigger foods Severity of Symptoms: increasing in severity Sleep Disruption: yes Aggravating Factors: fatty or greasy foods, large meal, late meal and garlic Alleviating Factors: PPI Medications Tried: Protonix HRQL SCORE: 27 Past Medical History: Diagnosis Date Viveros's esophagus 2017 [place] Hypercholesteremia Hypertension Past Surgical History: Procedure Laterality Date ABDOMINAL HERNIA REPAIR 02/26/2014 ESOPHAGOGASTRODUODENOSCOPY 11/25/2017 Viveros's esophagus.....Cecille ESOPHAGOGASTRODUODENOSCOPY 12/21/2019 [place] HERNIA REPAIR Right 1998 Inguinal with mesh No Known Allergies Current Outpatient Medications Medication Sig Dispense Refill amLODIPine (NORVASC) 10 MG tablet cyanocobalamin, vitamin B-12, 2,000 mcg Tab Take by mouth . ezetimibe-simvastatin (VYTORIN) 10-20 mg per tablet Take 1 tablet by mouth every night at bedtime . pantoprazole (PROTONIX) 40 MG tablet hydroCHLOROthiazide (MICROZIDE) 12.5 mg capsule Take 12.5 mg by mouth daily . No current facility-administered medications for this visit. Social History Tobacco Use Smoking status: Never Smoker Smokeless tobacco: Never Used Substance Use Topics Alcohol use: Not on file Drug use: Not on file Family History Problem Relation Age of Onset Skin cancer Mother Heart disease Father Hypertension Father Hyperlipidemia Father REVIEW OF SYSTEMS Pertinent positives are listed in HPI, PMSH, SH, ALL, otherwise all systems reviewed below are negative. The following systems were reviewed: [x] Const (fevers, chills, wt. loss, fatigue) [x] CV (HTN, CP, HOPKINS, edema, DVT) [x] Resp (SOB, pleurisy, asthma, apnea) [x] GI (N, V, D, C, M, abd pain, appetite) [x] Musc (back pain, joint stiffness, gout) [x] Neuro (seizures, syncope, paralysis) [x] Psych (depression, anxiety) [x] Endo (hot/cold intol, polyuria[DM]) [x] Hem/Lymph (Anemia, LA, bleeding) [x] Allerg/Immun (seasonal, immuniz) [x] Eyes (diplopia, cataracts) [x] ENT/mouth (dysphagia, epistaxis) [x] (dysuria, hematuria) [x] Skin/Breast (moles, rash, lumps, nipple changes) Pertinent Positives: See HPI Pertinent Negatives: See HPI Physical Exam: BP 149/88 (BP Location: Left arm, Patient Position: Sitting, BP Cuff Size: Adult) Pulse 77 Resp15 Ht 6' Wt 94.3 kg (208 lb) SpO2 96% BMI 28.21 kg/m Body mass index is 28.21 kg/m . Constitutional: Well nourished, well developed person in no acute distress. Ambulates without difficulty. Head: Atraumatic and normocephalic. Face: Within normal limits. Eyes: Pupils equal, round, reactive to light. Sclera white. Mouth: Moist mucous membranes, normal dentation. Neck: supple, trachea midline,no masses, no incisions. Lymphatic: No cervical or inguinal lymphadenopathy. Heart: Regular rate and rhythm. Lungs: Clear to auscultation. Abdomen: Soft, non-distended, non-tender, no heptasplenomegaly, no umbilica, incisional, femoral, or inguinal hernias. Pelvis: Stable, non-tender. Skin: Warm, moist, normal skin turgor. Peripheral Vascular: Palapable carotid, radial, and femoral pulses, no peripheral edema. Neuropsych: Alert and oriented, judgement and insight intact. Normal Gait. Assessment: 1. Paraesophageal hiatal hernia Ambulatory referral to General Surgery Case Request Operating Room: REPAIR HERNIA HIATAL WITH LINX SPHINCTER AUGMENTATION ROBOTIC XI, INTRAOPERATIVE ESOPHAGOGASTRODUODENOSCOPY 2. 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 Heartburn Case Request Operating Room: REPAIR HERNIA HIATAL WITH LINX SPHINCTER AUGMENTATION ROBOTIC XI, INTRAOPERATIVE ESOPHAGOGASTRODUODENOSCOPY 4. Pharyngoesophageal dysphagia Case Request Operating Room: REPAIR HERNIA HIATAL WITH LINX SPHINCTER AUGMENTATION ROBOTIC XI, INTRAOPERATIVE ESOPHAGOGASTRODUODENOSCOPY 5. Bloating Case Request Operating Room: REPAIR HERNIA HIATAL WITH LINX SPHINCTER AUGMENTATION ROBOTIC XI, INTRAOPERATIVE ESOPHAGOGASTRODUODENOSCOPY Orders Placed This Encounter Procedures Case Request Operating Room: REPAIR HERNIA HIATAL WITH LINX SPHINCTER AUGMENTATION ROBOTIC XI, INTRAOPERATIVE ESOPHAGOGASTRODUODENOSCOPY Plan: PROCEDURALIST ATTESTATION OF OUTPATIENT ELECTIVE CASE DURING COVID PANDEMIC The proposed procedure is outpatient with an expected discharge on the same day as the surgery / procedure. I discussed with the patient that while we practice appropriate precautions consistent withprevailing medical standards, any contact with any person in any setting at this time presents a risk of transmission and contraction of COVID-19. The patient was also informed that COVID-19 testing w ithin 72 hours of the procedure will be required. The patient wishes to proceed. All treatment options were discussed in detail with the patient. He would like to proceed with a intraoperative EGD and robotic assisted laparoscopic hiatal hernia repair with mesh and LINX sphincteraugmentation. Risk, benefits, and alternatives were discussed with the patient prior to obtaining consent. Alvin Ochoa CNP documented in this encounter* Alvin Ochoa CNP - 04/05/2020 6:54 AM EST [facility] PATIENT: Ary Forde DATE / TIME: 04/05/20 6:54 AM POS: Hospital AGE: 70 y.o. : 1950 RACE: [1] SEX: male PCP: Dago Mcnamara MD REFERRAL: No ref. provider found SUBJECTIVE: Patient sitting on the side of the bed with no complaints at this time. He states he is feeling good. He denies abdominal pain, nausea, or vomiting. He is tolerating a clear liquid diet. He denies heartburn, regurgitation, or dysphagia. He denies any shortness of breath. He has not been up ambulating in the hallways. OBJECTIVE: BP 137/74 (BP Location: Right arm, Patient Position: Lying) Pulse 74 Temp 98.7 F (37.1 C) (Oral) Resp 14 Ht 6' Wt 94.1 kg (207 lb 7.3 oz) SpO2 94% BMI 28.14 kg/m GENERAL: Appears age appropriate. No acute distress. NEUROLOGICAL: Alert and oriented X 3. Follows commands with extremities x4, equal strength. CARDIOVASCULAR: Regular rate and rhythm. No clicks, rubs, murmurs or gallops noted. No peripheral edema noted. Telemetry NSR. RESPIRATORY: Lungs, clear to auscultation bilaterally. No rhonchi, wheezes or crackles. Respiratoryeffort unlabored without use of accessory muscles. ABDOMINAL: Rounded, soft, nontender, nondistended, normal bowel sounds. No guarding or peritoneal signs. Dressing to five port sites intact with some drainage noted to the op-sites GENITOURINARY: Voiding without difficulty. MUSCULOSKELETAL: No gross deformity - neurovascularly intact x 4 SKIN: Skin warm and dry. Normal turgor. No rashes or lesions. ASSESSMENT: POD#1- Robotic assisted laparoscopic hiatal hernia repair with mesh and Santos fundoplication PLAN: 1. Tolerating clear liquid diet, will advance to full liquids 2. Ambulate in hallway X3 today 3. Aggressive pulmonary toilet, wean off O2 to keep saturation above 90% 4. Discontinue IVF's 5. Will go home today if able to wean off O2 and able to tolerate full liquid diet documented in this encounter* Abbe Wood MD - 04/20/2020 8:48 AM EST [facility] [place] PATIENT: Ary Forde DATE / TIME: 04/20/20 8:48 AM POS: Office AGE: 70 y.o. : 1950 RACE: [1] SEX: male PCP: Dago Mcnamara MD REFERRAL: No ref. provider found TOS: SUBJECTIVE: The patient returns for his first postoperative visit after undergoing a robotic assisted laparoscopic hiatal hernia repair with mesh and Santos fundoplication. He denies heartburn, regurgitation, ordysphagia. He is tolerating a full liquid diet. 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 OBJECTIVE: BP 139/86 Pulse 80 Ht 6' Wt 90.6 kg (199 lb 12.8 oz) SpO2 94% BMI 27.10 kg/m Abdomen: Soft, nondistended, nontender. Incisions healing with katey present. Nunez removed in the office today. ASSESSMENT: Postop follow-up status post robotic assisted laparoscopic hiatal hernia repair with mesh and Santos fundoplication PLAN: 1. Advance diet per heartburn treatment clinic protocol 2. Continue lifting restrictions until 6 weeks out from surgery 3. 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 Heartburn Pharyngoesophageal dysphagia Dysphagia, pharyngoesophageal phase Bloating Flatulence, eructation, and gas pain Paraesophageal hiatal hernia Diagnosis Paraesophageal hiatal hernia- Primary Diagnosis Paraesophageal hiatal hernia- Primary Elective surgery- Primary Paraesophageal hiatal hernia Diagnosis Paraesophageal hiatal hernia- Primary Paraesophageal hiatal hernia Diagnosis Paraesophageal hiatal hernia- Primary Diagnosis Postoperative follow-up- Primary Follow-up examination, following unspecified surgery Viveros's esophagus without dysplasia Chief Complaint and Reason for Visit Chief Complaint PULSE IRREGULARITY Chief Complaint PULSE IRREGULARITY CLEARANCE FOR CDL/POSSIBLE AFIB(PHILLIP) ARRYHTHMIA Reason for Visit Essential hypertensi on Additional Source Comments (unrecognized sect ion and content) No Status Records FoundNo Status Records FoundNo Status Records FoundNo Status Records FoundNo Status Records FoundNo Status Records FoundNo Status Records FoundNo Status Records Found INFORMATION SOURCE (unrecogn ized section and content) DATE CREATED AUTHOR 06/22/2018 [facility] DATE CREATED AUTHOR AUTHOR'S ORGANIZ ATION 03/18/2019 [employer] DATE CREATED AUTHOR AUTHOR'S ORGANIZ ATION 12/23/2019 [facility] DATE CREATED AUTHOR AUTHOR'S ORGANIZ ATION 12/27/2019 [facility] DATE CREATED AUTHOR AUTHOR'S ORGANIZ ATION 07/14/2021 [facility] DATE CREATED AUTHOR AUTHOR'S ORGANIZ ATION 04/26/2024 [facility] DATE CREATED AUTHOR AUTHOR'S ORGANIZ ATION 07/24/2024 [facility] DATE CREATED AUTHOR AUTHOR'S ORGANIZ ATION 07/26/2024 [facility] Reason for Visit (unrecogniz ed section and content) Reason Comments Consult to repair hiatal her santos Status Reason Specialty Diagnoses / Procedures Referred By Contact Referred To Contact Closed General Surgery Diagnoses Viveros's esophagus with dysplasia Large hiatal hernia Arabella Oden, DO [address] [place] [address] Abbe Wood MD [address] [facility] [place] [address] Status Reason Specialty Diagnoses / Procedures Re ferred By Contact Referred To Contact Diagnoses 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] Procedures AR LAP, REPAIR PARAESOPHAGEAL HERNIA, INCL FUNDOPLASTY W/O MESH AR LAPS ESOPHGL SPHNCTR AGMNTJ PLMT DEV CRRPL AR PROSTHETIC IMPLANT NOS Abbe Wood MD [address] [place] [address] Reason Comments Follow-up hiatal hernia repair with Santos fundoplication Reason Comments EGD Reason Comments Follow-up Reason Comments Follow-up RFA Reason Comments Follow-up EGD with RFA Reason Comments Follow-up Redo hiatal hernia r epair with santos Reason Comments Follow-up 4 week hiatal hernia repair check Reason Comments Medication Refill Reason Comments Follow-up Viveros's esophagus Reason Comments Follow-up Long-segment Viveros 's esophagus Reason Comments Follow-up Long segment Viveros 's esophagus, RFA Reason Comments Follow-up ESOPHAGOSCOPY WITH R Abbe Lee MD - 04/04/2020 10:32 AM ESTMartinAbbe MD - 04/04/2020 10:30 AM EST H&P Notes (unrecognized sect ion and content) INTERVAL HISTORY AND PHYSICAL Patient Name: Ary Forde Admit Date: [id number] MR #: [id number] : 1950 The H&P has been reviewed and the patient has been examined. I concur with the findings of the H&P. There are no significant changes. It is appropriate to proceed with the planned procedure. Abbe Wood MD 04/04/2020 10:32 AM Ary Forde is a 70 y.o. male being seen on 04/04/20 for No chief complaint on file. HPI: PROCEDURALIST ATTESTATION OF OUTPATIENT ELECTIVE CASE DURING COVID PANDEMIC The proposed procedure is outpatient with an expected discharge on the same day as the surgery / procedure. I discussed with the patient that while we practice appropriate precautions consistent with prevailing medical standards, any contact with any person in any setting at this time presents a risk of transmission and contraction of COVID-19. The patient was also informed that COVID-19 testing within 72 hours of the procedure will be required. The patient wishes to proceed. Patient Primary Symptoms are: heartburn, dysphagia, regurgitation, bloating and hiatal hernia Onset of Symptoms: The patient was initially seen by my nurse practitioner on 01/05/2020 as a referral from Dr. Oden for repair of a large hiatal hernia. He said about 7 years ago he started to have heartburn. He had a EGD at that time that showed Viveros's esophagus and a hiatal hernia. He states as of today his heartburn is infrequent and controlled on the medication. He does complain of regurgitation with trigger foods and large meals. He does have occasional dysphagia. He complains of bloating with meals. I did review images of his esophagram from 12/25/[address] Wood. It did show what looks like a Type III paraesophageal hernia with at least 70% of his intrathoracic stomach and mesoaxial rotation. His last EGD was on 12/21/[address] Oden that showed a large paraesophageal hernia and long segment Viveros's. Biopsies were taken that showed Viveros's esophagus without dysplasia. Frequency of Symptoms: Symptoms more often with trigger foods Severity of Symptoms: increasing in severity Sleep Disruption: yes Aggravating Factors: fatty or greasy foods, large meal, late meal and garlic Alleviating Factors: PPI Medications Tried: Protonix HRQL SCORE: 27 Past Medical History: Diagnosis Date Viveros's esophagus 2017 [place] Hypercholesteremia Hypertension Past Surgical History: Procedure Laterality Date ABDOMINAL HERNIA REPAIR 02/26/2014 ESOPHAGOGASTRODUODENOSCOPY 11/25/2017 Viveros's esophagus.....Cecille ESOPHAGOGASTRODUODENOSCOPY 12/21/2019 Cec[place] HERNIA REPAIR Right 1998 Inguinal with mesh No Known Allergies Current Facility-Administered Medications Medication Dose Route Frequency Provider Last Rate Last Admin cefoTEtan (CEFOTAN) 2000 mg in sodium chloride (NS) 0.9% 50 mL (vialmate) 2,000 mg Intravenous Once Alvin Ochoa CNP lactated Ringers infusion 125 mL/hr Intravenous Continuous Alvin Ochoa CNP 125 mL/hr at 04/04/20 0916 125 mL/hr at 04/04/20 0916 Social History Tobacco Use Smoking status: Never Smoker Smokeless tobacco: Never Used Substance Use Topics Alcohol use: Yes Comment: OCCAS Drug use: Never Family History Problem Relation Age of Onset Skin cancer Mother Heart disease Father Hypertension Father Hyperlipidemia Father REVIEW OF SYSTEMS Pertinent positives are listed in HPI, PMSH, SH, ALL, otherwise all systems reviewed below are negative. The following systems were reviewed: [x] Const (fevers, chills, wt. loss, fatigue) [x] CV (HTN, CP, HOPKINS, edema, DVT) [x] Resp (SOB, pleurisy, asthma, apnea) [x] GI (N, V, D, C, M, abd pain, appetite) [x] Musc (back pain, joint stiffness, gout) [x] Neuro (seizures, syncope, paralysis) [x] Psych (depression, anxiety) [x] Endo (hot/cold intol, polyuria[DM]) [x] Hem/Lymph (Anemia, LA, bleeding) [x] Allerg/Immun (seasonal, immuniz) [x] Eyes (diplopia, cataracts) [x] ENT/mouth (dysphagia, epistaxis) [x] (dysuria, hematuria) [x] Skin/Breast (moles, rash, lumps, nipple changes) Pertinent Positives: See HPI Pertinent Negatives: See HPI Physical Exam: BP (!) 154/98 Pulse 79 Temp 97.5 F (36.4 C) (Infrared) Resp 16 Ht 6' Wt 94.1 kg (207 lb 7.3 oz) SpO2 96% BMI 28.14 kg/m Body mass index is 28.14 kg/m . Constitutional: Well nourished, well developed person in no acute distress. Ambulates without difficulty. Head: Atraumatic and normocephalic. Face: Within normal limits. Eyes: Pupils equal, round, reactive to light. Sclera white. Mouth: Moist mucous membranes, normal dentation. Neck: supple, trachea midline,no masses, no incisions. Lymphatic: No cervical or inguinal lymphadenopathy. Heart: Regular rate and rhythm. Lungs: Clear to auscultation. Abdomen: Soft, non-distended, non-tender, no heptasplenomegaly, no umbilica, incisional, femoral, or inguinal hernias. Pelvis: Stable, non-tender. Skin: Warm, moist, normal skin turgor. Peripheral Vascular: Palapable carotid, radial, and femoral pulses, no peripheral edema. Neuropsych: Alert and oriented, judgement and insight intact. Normal Gait. Assessment: No diagnosis found. Orders Placed This Encounter Procedures Height and weight Intermittent pneumatic compression device Bilat LE Surgical site prep Skin; Chlorhexidine Gluconate Vital signs Insert peripheral IV Plan: I had a detailed discussion with the patient regarding his diagnosis. All treatment options were discussed in detail. The patient would like to undergo surgical treatment. I will schedule a intraoperative EGD to assess the extent of his Viveros's esophagus. We will then proceed with a robotic assisted laparoscopic hiatal hernia repair with mesh and either LINX sphincter augmentation or Santos fundoplication depending upon the extent of Viveros's esophagus. Risk, benefits, and alternatives were discussed with the patient detail prior to obtaining consent. Abbe Wood MD documented in this encounter Plan of [place] - Porsha Carcamo RN - 04/05/2020 12:49 PM ESTPlan of Care - Annalee Lopez RN - 04/04/2020 6:53 PM ESTQuick Note - Annalee Lopez RN - 04/04/2020 6:08 PM EST Miscellaneous Notes (unrecog nized section and content) Discharge home today Pt admitted from PACU. Status post santos. Pt received to room. Accompanied per . Ambulated to bed. Gait steady. Complains of b/l shoulder discomfort. Abd drsg x6 dry and intact. Skin assessment x2 RNs. No skin breakdown noted. Received report from PACU Macario THAKKAR. Pre-operative Diagnosis:Pre-Op Diagnosis Codes: * Paraesophageal hiatal hernia [K44.9] * Viveros's esophagus [K22.70] Post-operative Diagnosis: same Surgeon: Abbe Wood Customer Experience Associate: Alvin Ochoa CNP The [employer] AUDIT MANAGER was present for the entire case and provided critical assistance with the technical aspects of the operation. Procedure and Anesthesia: Procedure(s) and Anesthesia Type: * REPAIR HERNIA HIATAL WITH MESH AND SANTOS FUNDOPLICATION ROBOTIC XI - General * ESOPHAGOGASTRODUODENOSCOPY - General CPT Code: 35755, 44674 EBL 25 ml Complications:None Drains: None Dispo: PACU Indication: This is a 70-year-old male who was referred to my practice for evaluation of a large type III paraesophageal hiatal hernia. He had an EGD which confirmed a hiatal hernia and reportedly showed long segment Viveros's. The patient had an esophagram which showed an intrathoracic stomach. The patient would like to proceed with surgical treatment. Risks, benefits, and alternatives were discussed with the patient in detail prior to obtaining consent. Procedure: The patient was brought to the operating room and placed in the supine position. Appropriate time out was performed. General anesthesia was administered and endotracheal intubation accomplished without difficulty. The abdomen was prepped and draped in the usual sterile fashion. A second timeout was performed and was physician lead. An EGD was performed. The full report will be available in probation. Briefly, the esophagus had visible Viveros's esophagus with a Atlas classification of C6 M6. The top of the gastric fold was identified at 34 cm and the proximalmost extent of visible Viveros's was at 28 cm. There there were no suspicious lesions or evidence of nodular Viveros's. NBI was used to assess for any concerning areas. The endoscope was advanced into the stomach which was completely intrathoracic. No evidence of Josef ulcers or gastritis. The scope was then withdrawn. Half-percent Marcaine was injected to the left of the umbilicus. An 8 mm incision was made and a 8 mm trocar was placed 18 cm below the xiphoid and 3 cm to the left of the midline using Optiview technique. The abdomen was then insufflated to 15 mmHg using CO2. Three 8 mm ports were then placed under direct visualization. These were placed in on line transverse across the abdomen at 8 cm intervals with 2 being placed to the left of the camera port and one placed to the right of the camera port. A 12 mm port was then placed in the right subcostal position under direct visualization. The patient was placed in steep reverse Trendelenburg. The liver retractor was then passed through the incision and the left lobe of the liver was retracted cephalad. There were adhesions in the abdominal compartment from prior hernia repair. These were taken down with the LigaSure. The robot was then brought to the operative field and docked to the four 8 mm ports using standard technique. A large paraesophageal hiatal hernia was noted. The gastrohepatic ligament was divided using the vessel sealer. This allowed for exposure of the right crura. Dissection was then initiated on the right crura. This dissection was continued until the pleural-peritoneal reflection was identified. Dissection was then continued along this tissue plane up into the mediastinum. The hernia sac and stomach were then circumferentially mobilized and reduced using blunt dissection and the vessel sealer. The short gastric vessels were then divided using the vessel sealer. This facilitated mobilization of the greater curve of the stomach and the fundus of the stomach. The retroesophageal window was then fully developed using blunt dissection and the vessel sealer. A [place] drain was then placed around the esophagus to assist with manipulation. The esophagus was then circumferentially mobilized well up into the mediastinum using blunt dissection and the vessel sealer. The mobilization resulted in approximately 5 cm of intra-abdominal esophageal length. The hernia sac was then excised off of the esophagus into pieces using the vessel sealer. An Endoflip catheter was then placed in the esophagus. The hiatal hernia was then repaired over Phasix ST mesh pledgets using a running 2.0 V-Lock suture. The hiatal hernia repair was then reinforced with a 7 cm x 10 cm piece of Phasix ST mesh cut to the appropriate configuration to fit the diaphragm. The mesh was secured with absorbable tacks. The Endoflip balloon was re-inflated to 40 mL. The post-hiatal repair measurements are DI 2.0 mm^2/mmHg and the minimum diameter was 10 mm. The Endoflip balloon was deflated to 30 mL. The fundus of the stomach was then passed through the retroesophageal window. The shoeshine maneuver was used to confirm orientation. A fundoplication was then fashioned at the 10 o'clock position on the esophagus using interrupted 0 Ethibond suture. Each stitch incorporated the esophagus at the 10 o'clock position. The balloon was re-inflated to 40 mL. The post fundoplication measurements are DI 4.0 mm^2/mmHg and the minimum diameter was 14 mm. The Endoflip balloon was then deflated to 10 mL and removed. The [place] was removed from around the esophagus. The fundoplication laid tension-free at the 10 o'clock position on the esophagus. The hiatal hernia repair and mesh reinforcement was intact. All solid organs and hollow viscus were inspected. No injuries were seen. There was excellent hemostasis. The liver retractor was then removed under direct visualization. All ports were then removed and the abdomen was desufflated. The skin incisions were closed with katey katey and dressings were applied. The needle, sponge, and instrument count were all correct. The patient tolerated the procedure and was returned to the recovery room in stable condition. documented in this encounter Care Teams (unrecognized sec tion and content) Manager Law Relationship Specialty Start Date End Date Dago Mcnamara MD [address] [place] [address] PCP - General Family Medicine 12/30/19 Dago Mcnamara MD [address] [place] [address] Referring Physician Family Medicine 12/30/19 Manager Law Relationship Specialty Start Date End Date Dago Mcnamara MD [address] [place] [address] PCP - General Family Medicine 12/30/19 Dago Mcnamara MD [address] [place] [address] Referring Physician Family Medicine 12/30/19 Manager Law Relationship Specialty Start Date End Date Dago Mcnamara MD [address] [place] [address] PCP - General Family Medicine 12/30/19 Dago Mcnamara MD [address] [place] [address] Referring Physician Family Medicine 12/30/19 Manager Law Relationship Specialty Start Date End Date Dago Mcnamaar MD [address] [place] [address] PCP - General Family Medicine 12/30/19 Dago Mcnamara MD [address] [place] [address] Referring Physician Family Medicine 12/30/19 Manager Law Relationship Specialty Start Date End Date Dago Mcnamara MD [address] [place] [address] PCP - General Family Medicine 12/30/19 Dago Mcnamara MD [address] [place] [address] Referring Physician Family Medicine 12/30/19 Manager Law Relationship Specialty Start Date End Date Dago Mcnamara MD [address] [place] [address] PCP - General Family Medicine 12/30/19 Dago Mcnamara MD [address] [place] [address] Referring Physician Family Medicine 12/30/19 Manager Law Relationship Specialty Start Date End Date Dago Mcnamara MD [address] [place] [address] PCP - General Family Medicine 12/30/19 Dago Mcnamara MD [address] [place] [address] Referring Physician Family Medicine 12/30/19 Manager Law Relationship Specialty Start Date End Date Dago Mcnamara MD [address] [place] [address] PCP - General Family Medicine 12/30/19 Dago Mcnamara MD [address] [place] [address] Referring Physician Family Medicine 12/30/19 Manager Law Relationship Specialty Start Date End Date Dago Mcnamara MD [address] [place] [address] PCP - General Family Medicine 12/30/19 Dago Mcnamara MD [address] [place] [address] Referring Physician Family Medicine 12/30/19 Manager Law Relationship Specialty Start Date End Date Dago Mcnamara MD [address] [place] [address] PCP - General Family Medicine 12/30/19 Dago Mcnamara MD [address] [place] [address] Referring Physician Family Medicine 12/30/19 Manager Law Relationship Specialty Start Date End Date Dago Mcnamara MD [address] [place] [address] PCP - General Family Medicine 12/30/19 Dago Mcnamara MD [address] [place] [address] Referring Physician Family Medicine 12/30/19 Manager Law Relationship Specialty Start Date End Date Dago Mcnamara MD [address] [place] [address] PCP - General Family Medicine 12/30/19 Dago Mcnamara MD [address] [place] [address] Referring Physician Family Medicine 12/30/19 Manager Law Relationship Specialty Start Date End Date Dago Mcnamara MD [address] [place] [address] PCP - General Family Medicine 12/30/19 Dago Mcnamara MD [address] [place] [address] Referring Physician Family Medicine 12/30/19 Manager Law Relationship Specialty Start Date End Date Dago Mcnamara MD [address] [place] [address] PCP - General Family Medicine 12/30/19 Dago Mcnamara MD [address] [place] [address] Referring Physician Family Medicine 12/30/19 Team Status: Active Member Role Status Dates Dr. Dago Mcnamara MD Family Provider Active Dr. Emanuel Aguilar , Primary Care Provider Active Team Status: Inactive Member Role Status Dates Dr. Emanuel Aguilar DO Primary Care Provider, Attendin g Provider Active Manager Law Relationship Specialty Start Date End Date Dago Mcnamara MD [address] [place] [address] PCP - General Family Medicine 12/30/19 Dago Mcnamara MD [address] [place] [address] Referring Physician Family Medicine 12/30/19 Manager Law Relationship Specialty Start Date End Date Dago Mcnamara MD [address] [place] [address] PCP - General Family Medicine 12/30/19 Dago Mcnamara MD [address] [place] [address] Referring Physician Family Medicine 12/30/19 Manager Law Relationship Specialty Start Date End Date Dago Mcnamara MD [address] [place] [address] PCP - General Family Medicine 12/30/19 Dago Mcnamara MD [address] [place] [address] Referring Physician Family Medicine 12/30/19 Manager Law Relationship Specialty Start Date End Date Dago Mcnamara MD [address] [place] [address] PCP - General Family Medicine 12/30/19 Dago Mcnamara MD [address] [place] [address] Referring Physician Family Medicine 12/30/19 Manager Law Relationship Specialty Start Date End Date Dago Mcnamara MD [address] [place] [address] PCP - General Family Medicine 12/30/19 Dago Mcnamara MD [address] [place] [address] Referring Physician Family Medicine 12/30/19 Manager Law Relationship Specialty Start Date End Date Dago Mcnamara MD [address] [place] [address] PCP - General Family Medicine 12/30/19 Dago Mcnamara MD [address] [place] [address] Referring Physician Family Medicine 12/30/19 Manager Law Relationship Specialty Start Date End Date Lauren Emanuel DO [address] [place] [address] PCP - General Family Medicine 06/16/24 Dago Mcnamara MD [address] [place] [address] Referring Physician Family Medicine 12/30/19 Goals (unrecognized section and content) Goals may be documented in a n alternate sectionGoals may be documented in an alternate sectionGoals may be documented in an alternate section FOR RECORDS PERTAINING TO PATIENTS WHO ARE OR HAVE BEEN ENROLLED IN A CHEMICAL DEPENDENCY/SUBSTANCEABUSE PROGRAM, SOME INFORMATION MAY BE OMITTED. This clinical summary was aggregated from multiple sources. Caution should be exercised in using it in the provision of clinical care. This summary normalizes information from multiple sources, and as a consequence, information in this document may materially change the coding, format and clinical context of patient data. In addition, data may be omitted in some cases. CLINICAL DECISIONS SHOULD BE BASED ON THE PRIMARY CLINICAL RECORDS. [facility]. provides no warranty or guarantee of the accuracy or completeness of information in this document.
[2024-09-19 13:27] LABS: Anion Gap 13 (5-15); BUN 11 mg/dL (4-19); BUN/Creat Ratio 15.0 RATIO (10-20); Calcium,Total 9.1 mg/dL (7.6-11.0); Carbon Dioxide 23.3 mmol/L (21.0-32.0); Chloride 100 mmol/L (98-108); Estimated Creatinine Clearance 86.28 ml/min (50-250); Glucose 152 mg/dL (70-99); Potassium 3.7 mmol/L (3.3-5.1); Troponin T High Sensitivity 11 ng/L (<=22)
--- NOTE | 2024-09-19 13:38 | CT_ITS ---
EXAM: CT Angiography Chest Without and With Intravenous Contrast CLINICAL INDICATION: LEFT-SIDED SUDDEN ONSET PLEURITIC CHEST PAIN TECHNIQUE: Axial computed tomographic angiography images of the chest without and with intravenous contrast. This CT exam was performed using one or more of the following dose reduction techniques: automated exposure control, adjustment of the mA and/or kV according to patient size, and/or use of iterative reconstruction technique. MIP reconstructed images were created and reviewed. COMPARISON: No relevant prior studies available. FINDINGS: LIMITATIONS: Suboptimal opacification of the pulmonary arteries. PULMONARY ARTERIES: No pulmonary embolism is identified. Some of the distal pulmonary arteries cannot be evaluated due to suboptimal opacification. AORTA: No acute findings. No thoracic aortic aneurysm. LUNGS AND PLEURAL SPACES: Lung emphysema/COPD with left pleural effusion and associated compressive atelectasis. Nodular opacity in the left lower lobe measuring up to 5.0 cm. Mass can not be excluded. No pneumothorax. HEART: Unremarkable. No cardiomegaly. No significant pericardial effusion. No evidence of RV dysfunction. MEDIASTINUM: Scattered mediastinal lymph nodes some of which are upper limits of normal in size and are most likely reactive lymph nodes. Moderate esophageal hiatal hernia. BONES/JOINTS: No acute fracture. No dislocation. SOFT TISSUES: Unremarkable. LYMPH NODES: See above. CT/CTA Chest W/WO Contrast IMPRESSION: 1. No pulmonary embolism is identified. Some of the distal pulmonary arteries cannot be evaluated due to suboptimal opacification. 2. Lung emphysema/COPD with left pleural effusion and associated compressive a telectasis. Nodular opacity in the left lower lobe measuring up to 5.0 cm. Mass can not be excluded. 3. Scattered mediastinal lymph nodes some of which are upper limits of normal in size and are most likely reactive lymph nodes. 4. Moderate esophageal hiatal hernia. Reading Location: [id number]
[2024-09-19 13:43] LABS: D-Dimer Quantitative (DVT/PE) 3.94 FEU/ug/m (0.27-0.49)
[2024-09-19 14:00] VITALS: BP 147/81; PULSE 96; RESP 23; O2SAT 98
[2024-09-19 15:00] VITALS: BP 113/72; PULSE 89; RESP 24; O2SAT 94
[2024-09-19 15:22] LABS: Troponin T High Sens 2 HR 8 ng/L (<=22)
[2024-09-19 15:57] VITALS: BP 112/65; PULSE 86; RESP 20; TEMP 37.7; O2SAT 96
== END 2024-09-19 15:58 | disposition home or self-care (01) ==
PROVIDERS: Emergency Provider Emergency Medicine; PCP Family Medicine; Visit Provider Emergency Medicine
DX: R07.89 Other chest pain (principal); I48.91 Unspecified atrial fibrillation; J90 Pleural effusion, not elsewhere classified; E78.5 Hyperlipidemia, unspecified; I10 Essential (primary) hypertension; R06.00 Dyspnea, unspecified; Z79.01 Long term (current) use of anticoagulants; K22.70 Barrett's esophagus without dysplasia
CPT/HCPCS: 71045; 71275; 80048; 84484; 85025; 85379; 93005; 96374; 96375; 99285; Q9967; A4216; J2405

== ENCOUNTER → 2024-09-22 | Outpatient (CLI) | payer MEDICARE, OTHER, SELFPAY ==
[2024-09-22 09:18] LABS: Platelet Count 358 K/mm3 (150-450)
[2024-09-22 09:30] LABS: Prothrombin Time (Protime)PT. 21.4 SECONDS (11.7-14.9)
[2024-09-22 09:31] LABS: Partial Thromboplast Time 40.9 Seconds (24.1-36.2)
== END | disposition home or self-care (01) ==
PROVIDERS: PCP Family Medicine; Referring Provider Nurse Practitioner Acute Care; Visit Provider Nurse Practitioner Acute Care
DX: I48.0 Paroxysmal atrial fibrillation (principal); R06.02 Shortness of breath
CPT/HCPCS: 36415; 85049; 85610; 85730; 94060; 94726; 94729

== ENCOUNTER 2024-09-28 15:20 | Emergency (ER) | payer MEDICARE, OTHER, SELFPAY ==
[2024-09-28] VITALS (8 sets, daily range): BP systolic 98–118; BP diastolic 58–69; PULSE 91–108; RESP 16–24; TEMP 36.4–36.6; O2SAT 84–100; BMI 23.7
--- NOTE | 2024-09-28 15:38 | EKG12_ITS ---
Test Reason : cp Blood Pressure : */* mmHG Vent. Rate : 106 BPM Atrial Rate : * BPM P-R Int : * ms QRS Dur : 116 ms QT Int : 364 ms P-R-T Axes : * 25 56 degrees QTcB Int : 483 ms Atrial fibrillation with rapid ventricular response Possible Acute pericarditis Nonspecific T wave abnormality Abnormal ECG Confirmed by ARYA HURLEY, DIGNA ([id number]), clinical editor KIRSTEN CHIN ([id number]) on 09/29/2024 9:03:09 AM Referred By: Confirmed By: DIGNA KOENIG MD
--- NOTE | 2024-09-28 16:03 | EX.ED.DYSGE1 ---
HPI <Dr. Zack Zee DO - Last Filed: 09/30/24 16:22> History of Present Illness Chief Complaint: Chest Pain Informant: patient and family Narrative Narrative: Patient here with 2 daughters. Sent in by pulmonary office concerns for empyema left lung after thoracentesis done today. Patient was seen 9 days from the ED for left-sided chest pain he had a CAT scan concerning 5 cm mass left lower lung. He followed with PCP who referred him to pulmonology. They had set up for potential lung biopsy today however repeat CT scan was performed noting a large pleural effusion therefore thoracentesis was performed. There is discussion my partners with the pulmonary office, exudative drainage from thoracentesis white count was 33 now more concerning for empyema. Patient history of hypertension A-fib on Eliquis he had his Eliquis held since Saturday. She has had the intermittent left lower chest pain in the region of his findings since then. No coronary disease history. No fever or chills. Review of records, thoracentesis 1340 mL removed. Initial CTA chest 9 days ago 5 cm left lower lobe mass versus loculation. CT chest performed prethoracentesis large pleural effusion. Additional CT chest post thoracentesis additional loculations of fluid however decreased from initial CT. There is no clear masses seen. White count was 33. Prior similar symptoms: No PFSH <Dr. Zack Zee DO - Last Filed: 09/30/24 16:22> PFSH Medical History COPD (chronic obstructive pulmonary disease) Atrial fibrillation Premature atrial contractions Hyperlipidemia Essential hypertension Ventral incisional hernia Arthritis Home Medications ?Medication ?Instructions ?Recorded ?Last Taken ?Type ezetimibe 10 mg-simvastatin 20 mg 1 tab PO DAILY 02/18/14 Unknown History tablet amlodipine 10 mg tablet 10 mg PO DAILY 06/27/21 Unknown History cyanocobalamin (vitamin B-12) 500 500 mcg PO DAILY 06/27/21 Unknown History mcg tablet ammonium lactate 12 % topical cream 1 applic topical DAILY 01/28/23 Unknown History omeprazole 40 mg capsule,delayed 40 mg PO BID 01/28/23 Unknown History release sucralfate 1 gram tablet 1 g PO QACHS 01/28/23 Unknown History apixaban 5 mg tablet (Eliquis) 5 mg PO BID [facility] 09/16/24 Rx Held on 09/29/24. 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 Zack Zee, DO - Last Filed: 09/30/24 16:22> ROS ED Constitutional Constitutional ED: Denies chills, fever(s) or sweats ENT ENT ED: Denies sore throat Cardiovascular Cardiovascular: Reports chest pain; Denies leg edema, palpitations or racing heartbeat Respiratory/Chest Respiratory/Chest: Reports dyspnea; Denies cough or dyspnea on exertion Gastrointestinal Gastrointestinal: Denies abdominal pain, diarrhea, nausea or vomiting Genitourinary Genitourinary ED: Denies dysuria, hematuria or urinary frequency Musculoskeletal Musculoskeletal: Denies back pain, extremity pain or neck pain Integumentary Denies rash or wounds Neurologic Neurologic: Denies headache(s), paresthesias or weakness EXAM <Dr. Zack Zee, DO - Last Filed: 09/30/24 16:22> Physical Exam Const Vital Signs: 09/28/24 15:22 09/28/24 16:19 09/28/24 18:00 Temperature 97.5 F L 97.9 F 97.9 F Temperature Source Temporal Oral Oral Pulse Rate 93 91 97 Respiratory Rate 16 18 19 H Respiratory Effort Respiratory Depth Respiratory Pattern Blood Pressure 105/60 114/68 105/58 L Blood Pressure Mean 75 83 72 Pulse Ox 96 96 100 Oxygen Delivery Method Room Air Room Air Room Air 09/28/24 19:00 09/28/24 19:06 09/28/24 19:07 Temperature Temperature Source Pulse Rate 99 Respiratory Rate 19 H Respiratory Effort Normal Non-Labored Normal Non-Labored Respiratory Depth Normal Respiratory Pattern Normal Blood Pressure 98/64 Blood Pressure Mean 75 Pulse Ox 99 Oxygen Delivery Method Room Air 09/28/24 20:00 09/28/24 21:04 09/28/24 22:00 Temperature 97.5 F L Temperature Source Oral Pulse Rate 100 103 H 105 H Respiratory Rate 18 22 H 20 H Respiratory Effort Respiratory Depth Respiratory Pattern Blood Pressure 112/62 118/69 113/68 Blood Pressure Mean 79 85 83 Pulse Ox 96 99 95 Oxygen Delivery Method Room Air 09/28/24 23:00 09/29/24 00:00 09/29/24 01:00 Temperature Temperature Source Pulse Rate 108 H 100 94 Respiratory Rate 24 H 20 H 16 Respiratory Effort Respiratory Depth Respiratory Pattern Blood Pressure 122/61 H 109/59 L Blood Pressure Mean 79 75 Pulse Ox 84 97 98 Oxygen Delivery Method Room Air 09/29/24 02:00 09/29/24 03:00 09/29/24 04:00 Temperature Temperature Source Pulse Rate 100 95 93 Respiratory Rate 18 18 18 Respiratory Effort Respiratory Depth Respiratory Pattern Blood Pressure 116/62 102/55 L Blood Pressure Mean 80 70 Pulse Ox 97 99 99 Oxygen Delivery Method Room Air Room Air Room Air 09/29/24 05:00 09/29/24 06:00 Temperature Temperature Source Pulse Rate 105 H 103 H Respiratory Rate 19 H 18 Respiratory Effort Respiratory Depth Respiratory Pattern Blood Pressure 104/64 114/63 Blood Pressure Mean 77 80 Pulse Ox 97 97 Oxygen Delivery Method Room Air Room Air Positive well nourished and well developed General Appearance ED: well developed and NAD HEENT Reports moist mucous membranes normocephalic and atraumatic Eyes General Eye ED: Yes normal appearance of both eyes Neck full ROM Chest Wall Chest: Negative for tenderness Resp normal respiratory effort and normal air movement Effort and Inspection: symmetric chest movement; Negative for respiratory distress Cardio regular rate, regular rhythm and no murmurs Peripheral Pulses: pulses 2+ throughout GI normal to inspection, nondistended, normoactive bowel sounds and non-tender Palpation: Negative for guarding or rebound tenderness present Back/Spine Back/Spine Narrative: Dressing left lower thoracic region clean, dry, intact. Extremity normal to inspection General Extremety ED: Negative for edema or tenderness General Extremity: Negative for edema Neuro oriented x3 and no sensory deficits noted Sensorium / Orientation: awake and alert <Dr. Cliff Coats, DO - Last Filed: 09/29/24 06:51> Physical Exam Const Vital Signs: 09/28/24 15:22 09/28/24 16:19 09/28/24 18:00 Temperature 97.5 F L 97.9 F 97.9 F Temperature Source Temporal Oral Oral Pulse Rate 93 91 97 Respiratory Rate 16 18 19 H Respiratory Effort Respiratory Depth Respiratory Pattern Blood Pressure 105/60 114/68 105/58 L Blood Pressure Mean 75 83 72 Pulse Ox 96 96 100 Oxygen Delivery Method Room Air Room Air Room Air 09/28/24 19:00 09/28/24 19:06 09/28/24 19:07 Temperature Temperature Source Pulse Rate 99 Respiratory Rate 19 H Respiratory Effort Normal Non-Labored Normal Non-Labored Respiratory Depth Normal Respiratory Pattern Normal Blood Pressure 98/64 Blood Pressure Mean 75 Pulse Ox 99 Oxygen Delivery Method Room Air 09/28/24 20:00 09/28/24 21:04 09/28/24 22:00 Temperature 97.5 F L Temperature Source Oral Pulse Rate 100 103 H 105 H Respiratory Rate 18 22 H 20 H Respiratory Effort Respiratory Depth Respiratory Pattern Blood Pressure 112/62 118/69 113/68 Blood Pressure Mean 79 85 83 Pulse Ox 96 99 95 Oxygen Delivery Method Room Air 09/28/24 23:00 09/29/24 00:00 09/29/24 01:00 Temperature Temperature Source Pulse Rate 108 H 100 94 Respiratory Rate 24 H 20 H 16 Respiratory Effort Respiratory Depth Respiratory Pattern Blood Pressure 122/61 H 109/59 L Blood Pressure Mean 79 75 Pulse Ox 84 97 98 Oxygen Delivery Method Room Air 09/29/24 02:00 09/29/24 03:00 09/29/24 04:00 Temperature Temperature Source Pulse Rate 100 95 93 Respiratory Rate 18 18 18 Respiratory Effort Respiratory Depth Respiratory Pattern Blood Pressure 116/62 102/55 L Blood Pressure Mean 80 70 Pulse Ox 97 99 99 Oxygen Delivery Method Room Air Room Air Room Air 09/29/24 05:00 09/29/24 06:00 Temperature Temperature Source Pulse Rate 105 H 103 H Respiratory Rate 19 H 18 Respiratory Effort Respiratory Depth Respiratory Pattern Blood Pressure 104/64 114/63 Blood Pressure Mean 77 80 Pulse Ox 97 97 Oxygen Delivery Method Room Air Room Air MDM <Dr. Zack Zee, DO - Last Filed: 09/30/24 16:22> MDM MDM Narrative Medical decision making narrative: Interventions / MDM: Differential diagnosis: Left lung empyema, chronic A-fib, chest pain Diagnosis considered but do not suspect: N/A My EKG interpretation: A-fib rate of 106, no ST changes. Imaging independently reviewed and interpreted by myself: N/A External documents reviewed: Per [facility] recently to today was reviewed. No pneumothorax. White count of 33.ED visit from 9 days ago, CT scans thoracentesis analysis white blood cell significantly elevated 153,000. With turbid fluid. Test considered but not ordered:N/A ED course: Presenting concerning for empyema with fluid collection in left lung. Recheck labs occluding blood culture and lactic acid. No pneumothorax on CT outpatient. He is covered Zosyn and vancomycin. Currently vitals are stable afebrile 96% on room air. 1720: Labs are pending, I spoke with [facility] transfer along with cardiothoracic surgeon Dr. Suarez, discussed patient's history and findings. She requested triglycerides be added to the pleural fluid. I discussed with the lab on this, this is a send out. She was unable to review the films, did rediscuss with radiology department and they will resend however first 1 sent and noted to be okay. Patient accepted to [facility]. White cell results confirmed at 31.6. Troponin at 12. Family updated. Lactic acid returned at 2.4. Antibiotics were given. Blood pressure stable at 105/58. 0: Electrolytes are evaluated creatinine 1.93 BUN 116. Sodium 127. 9 days ago was normal please status post 1 L of fluids. Will give additional liter of fluids. Awaiting transfer bed at this time. 0000: Patient due for Zosyn and this was ordered and scheduled for every 6 hours. Initial order for planned vancomycin 12 hours at 4 AM however received call from pharmacy, with his current GFR, dosing would be every 24 hours therefore next dose would not be until 4 PM. This was held. Re-evaluation: stable Disposition discussed with patient/family/significant other: Patient and family Case discussed with consulting clinician: [facility] transfer with cardiothoracic surgery This note was generated with [employer] dictation software. It may contain incorrect words, spelling, and punctuation that were not noted in checking the note before signing. Lab Data Attestation: I reviewed the patient's lab results. Labs: Laboratory Results - last 24 hr 09/28/24 09/28/24 09/28/24 16:20 17:00 18:27 WBC 31.6 H* RBC 4.25 L Hgb 12.5 L Hct 35.8 L MCV 84.2 MCH 29.4 MCHC 34.9 RDW Std Deviation 40.6 RDW Coeff of Dennis 13.2 Plt Count 482 H MPV 9.5 Immature Gran % (Auto) 2.300 H Neut % (Auto) 91.9 H Lymph % (Auto) 2.3 L [place] % (Auto) 3.1 Eos % (Auto) 0.0 Baso % (Auto) 0.4 Absolute Neuts (auto) 29.0 H Absolute Lymphs (auto) 0.73 L Nucleated RBC % 0 Differential Comment SCANNED Diff Path Review May foll Platelet Estimate SLT INC PT Cancelled 19.6 H INR Cancelled 1.6 APTT Cancelled 35.8 Sodium 127 L Potassium 3.7 Chloride 90 L Carbon Dioxide 17.7 L Anion Gap 19 H BUN 116 H* Creatinine 1.93 H Estim Creat Clear Calc 35.76 L Est GFR (MDRD) Non-Af 36 L BUN/Creatinine Ratio UNABLE TO CALCULATE L Glucose 110 H Lactic Acid 2.4 H* Calcium 8.4 Total Bilirubin 0.69 AST 34 ALT 23 Alkaline Phosphatase 327 H Troponin T High Sens 12 D Troponin T Hi Sens 2 Hr 12 Total Protein 7.2 Albumin 2.7 L Globulin 4.5 H Albumin/Globulin Ratio 0.6 L 09/28/24 23:59 WBC RBC Hgb Hct MCV MCH MCHC RDW Std Deviation RDW Coeff of Dennis Plt Count MPV Immature Gran % (Auto) Neut % (Auto) Lymph % (Auto) [place] % (Auto) Eos % (Auto) Baso % (Auto) Absolute Neuts (auto) Absolute Lymphs (auto) Nucleated RBC % Differential Comment Diff Path Review Platelet Estimate PT INR APTT Sodium Potassium Chloride Carbon Dioxide Anion Gap BUN Creatinine Estim Creat Clear Calc Est GFR (MDRD) Non-Af BUN/Creatinine Ratio Glucose Lactic Acid 1.5 Calcium Total Bilirubin AST ALT Alkaline Phosphatase Troponin T High Sens Troponin T Hi Sens 2 Hr Total Protein Albumin Globulin Albumin/Globulin Ratio <Dr. Cliff Coats, DO - Last Filed: 09/29/24 06:51> MDM Lab Data Labs: Laboratory Results - last 24 hr 09/28/24 09/28/24 09/28/24 16:20 17:00 18:27 WBC 31.6 H* RBC 4.25 L Hgb 12.5 L Hct 35.8 L MCV 84.2 MCH 29.4 MCHC 34.9 RDW Std Deviation 40.6 RDW Coeff of Dennis 13.2 Plt Count 482 H MPV 9.5 Immature Gran % (Auto) 2.300 H Neut % (Auto) 91.9 H Lymph % (Auto) 2.3 L [place] % (Auto) 3.1 Eos % (Auto) 0.0 Baso % (Auto) 0.4 Absolute Neuts (auto) 29.0 H Absolute Lymphs (auto) 0.73 L Nucleated RBC % 0 Differential Comment SCANNED Diff Path Review May foll Platelet Estimate SLT INC PT Cancelled 19.6 H INR Cancelled 1.6 APTT Cancelled 35.8 Sodium 127 L Potassium 3.7 Chloride 90 L Carbon Dioxide 17.7 L Anion Gap 19 H BUN 116 H* Creatinine 1.93 H Estim Creat Clear Calc 35.76 L Est GFR (MDRD) Non-Af 36 L BUN/Creatinine Ratio UNABLE TO CALCULATE L Glucose 110 H Lactic Acid 2.4 H* Calcium 8.4 Total Bilirubin 0.69 AST 34 ALT 23 Alkaline Phosphatase 327 H Troponin T High Sens 12 D Troponin T Hi Sens 2 Hr 12 Total Protein 7.2 Albumin 2.7 L Globulin 4.5 H Albumin/Globulin Ratio 0.6 L 09/28/24 23:59 WBC RBC Hgb Hct MCV MCH MCHC RDW Std Deviation RDW Coeff of Dennis Plt Count MPV Immature Gran % (Auto) Neut % (Auto) Lymph % (Auto) [place] % (Auto) Eos % (Auto) Baso % (Auto) Absolute Neuts (auto) Absolute Lymphs (auto) Nucleated RBC % Differential Comment Diff Path Review Platelet Estimate PT INR APTT Sodium Potassium Chloride Carbon Dioxide Anion Gap BUN Creatinine Estim Creat Clear Calc Est GFR (MDRD) Non-Af BUN/Creatinine Ratio Glucose Lactic Acid 1.5 Calcium Total Bilirubin AST ALT Alkaline Phosphatase Troponin T High Sens Troponin T Hi Sens 2 Hr Total Protein Albumin Globulin Albumin/Globulin Ratio Treatment and Re-Evaluation :: Care of the patient was turned over to nd pending transfer to [facility]. Patient remained stable here in the emergency department. Patient was given a dose of Zosyn as scheduled. Patient remained comfortable here in the emergency department. Otherwise [facility] will reassess bed situation this morning and will call with an update. If there is no bed available later this morning, patient will likely need to be admitted here until the patient can be transferred to [facility]. Care of the patient will be turned over to the oncoming physician pending transfer. Discharge Plan Triage Chief Complaint: Chest Pain Other Complaint: Shortness of Breath ED Provider: Zack Zee Dx/Rx/DC Orders Clinical Impression: Empyema of lung, Atrial fibrillation, chronic, History of hypertension, Chest pain, Acute renal insufficiency, Acute hyponatremia Prescriptions: No Action amlodipine 10 mg tablet 10 mg PO DAILY cyanocobalamin (vitamin B-12) 500 mcg tablet 500 mcg PO DAILY sucralfate 1 gram tablet 1 g PO QACHS omeprazole 40 mg capsule,delayed release(DR/EC) 40 mg PO BID ammonium lactate 12 % cream 1 applic topical DAILY ezetimibe-simvastatin 1 TABLET tablet 1 tab PO DAILY Patient Comments: CHOLESTEROL ibuprofen 200 mg capsule 200 mg PO Q8H acetaminophen [Tylenol Extra Strength] 500 mg tablet 500 mg PO Q6H PRN (Reason: pain) tramadol 50 mg tablet 50 mg PO Q8H PRN PRN (Reason: severe pain) Eliquis 5 mg tablet 5 mg PO BID Qty: 180 3RF albuterol sulfate 2.5 mg /3 mL (0.083 %) solution for nebulization 2.5 mg inhalation Q4H PRN (Reason: Sob &/Or Wheezing) Qty: 180 3RF Primary Care Provider: Jon Aguilar Referrals: Jon Aguilar DO [Primary Care Provider] - Print Language: Macedonian Disposition Disposition: DC/Tx to Another Type of HCF Discharge Location: [facility] [place] Discharge Date/Time: 09/29/24 11:46
[2024-09-28] MEDS: 0.9% Normal Saline (1000mL) 1,000 ML 1000 ML IV (16:22)
[2024-09-28 16:33] LABS: Hematocrit 35.8 % (40-54); Hemoglobin 12.5 g/dL (13.0-16.5); Immature Granulocytes Count 0.720 X10^3/uL (0.0-0.0); Mean Corp Hgb Conc 34.9 g/dL (32-36); Mean Corpuscular Volume 84.2 fL (80-94); Mean Platelet Vol. 9.5 fl (6.2-12.0); NRBC Flagged by Analyzer 0 % (0-5); POSITIVE COUNT YES; POSITIVE DIFFERENTIAL YES; Platelet Count 482 K/mm3 (150-450); RBC Distribution Width CV 13.2 % (11.6-14.6); RBC Distribution Width SD 40.6 fl (35.1-43.9); Red Blood Count 4.25 M/mm3 (4.6-6.2)
[2024-09-28] MEDS: Piperacil/Tazobactam 4.5 GM in 0.9% Normal Saline (100mL MB+) 100 ML IV (16:38)
[2024-09-28] MEDS: Vancomycin HCl 2,000 MG in 0.9% Normal Saline (500mL Bag) 500 ML 250 MG IV (16:38)
[2024-09-28 17:11] LABS: Troponin T High Sensitivity 12 ng/L (<=22)
[2024-09-28 17:30] LABS: Differential Indicated SCAN CRITERIA MET; White Blood Count 31.6 K/mm3 (4.4-11.0)
[2024-09-28 17:34] LABS: Prothrombin Time (Protime)PT. 19.6 SECONDS (11.7-14.9)
[2024-09-28 17:35] LABS: Partial Thromboplast Time 35.8 Seconds (24.1-36.2)
[2024-09-28 19:27] LABS: AST(SGOT) 34 U/L (<=37); Alanine Aminotransfer ALT/SGPT 23 U/L (<=46); Albumin, Serum 2.7 g/dL (3.4-4.8); Alkaline Phosphatase 327 U/L (40-129); Anion Gap 19 (5-15); BUN/Creat Ratio UNABLE TO CALCULATE RATIO (10-20); Calcium,Total 8.4 mg/dL (7.6-11.0); Carbon Dioxide 17.7 mmol/L (21.0-32.0); Chloride 90 mmol/L (98-108); Estimated Creatinine Clearance 35.76 ml/min (50-250); Globulin 4.5 g/dL (2.2-4.2); Glucose 110 mg/dL (70-99); Potassium 3.7 mmol/L (3.3-5.1)
[2024-09-28 19:30] LABS: Troponin T High Sens 2 HR 12 ng/L (<=22)
[2024-09-28 19:36] LABS: BUN 116 mg/dL (4-19)
[2024-09-28 19:38] LABS: Differential Comment SCANNED
[2024-09-28 20:29] LABS: Reflex Lactate? Y
[2024-09-28] MEDS: 0.9% Normal Saline (1000mL) 1,000 ML 999 ML IV (21:02)
--- NOTE | 2024-09-28 22:16 | PCA ---
THIS [employer] OPERATOR CALLED TRANSFER LINE FOR BED STATUS UPDATE, TERRA THAKKAR SAID MOST LIKELY NOT TONIGHT, PROBABLY TOMORROW. NOT 100 PERCENT SURE THOUGH BUT WE ARE ON A [employer]IDE DIVERSION.
[2024-09-29] VITALS (13 sets, daily range): BP systolic 96–122; BP diastolic 55–78; PULSE 91–111; RESP 15–20; TEMP 36.6–36.7; O2SAT 96–100
[2024-09-29] MEDS: Piperacil/Tazobactam 3.375 GM in 0.9% Normal Saline (50mL MB+) 50 ML IV ×2 (01:27→07:44)
--- NOTE | 2024-09-29 03:32 | ED.RN ---
This nurse talked to [facility] transfer line giving them an update. She stated that there would be discharges in the am and pt should hopefully have a bed after that. Make Up Arranger updated.
--- NOTE | 2024-09-29 08:39 | ED.RN ---
Pt and family updated on transfer delay and waiting on a bed after discharges at [facility]. No needs at this time.
== END 2024-09-29 11:46 | disposition other institution (70) ==
PROVIDERS: Emergency Provider Emergency Medicine; PCP Family Medicine; Visit Provider Emergency Medicine
DX: J86.9 Pyothorax without fistula (principal); J44.9 Chronic obstructive pulmonary disease, unspecified; I48.20 Chronic atrial fibrillation, unspecified; I10 Essential (primary) hypertension; J90 Pleural effusion, not elsewhere classified; E78.5 Hyperlipidemia, unspecified; R07.9 Chest pain, unspecified; N28.9 Disorder of kidney and ureter, unspecified; E87.1 Hypo-osmolality and hyponatremia; Z79.01 Long term (current) use of anticoagulants; R06.00 Dyspnea, unspecified
CPT/HCPCS: 36415; 80053; 83605; 84484; 85025; 85610; 85730; 87040; 93005; 96365; 96366; 96367; 96368; 99284; A4216

== ENCOUNTER → 2024-09-28 | Outpatient (CLI) | payer MEDICARE, OTHER, SELFPAY ==
--- NOTE | 2024-09-28 | FLU_PTH ---
PATIENT: ARY FORDE LOC: [place] U#:[id number] AGE/SX: 74/M ROOM: RE09/28/[address]: PEG Teran : 1950 BED: DIS: 09/28/2024 SPEC #: [id number] RECD: 09/28/24 10:28 STATUS: MIRIAM REArtemio #: [id number] CORIN: 09/28/24 00:[address]: Adriana Lipscomb NP DEPT: CYTOLOGY RECD BY: Mihir Monroy ENTERED: 09/28/24 12:42 SP TYPE: Fluid OTHR DR: Dr. Jon Aguilar, Tissues: A - Pleural fluid, NOS Procedures: Special Stain Group II Surgery Specimen Level IV Cytospin Fluid HEADER OPERATION: Thoracentesis PRE-OP DIAGNOSIS: Pleural effusion TISSUE SUBMITTED: A- Thoracentesis fluid for cytology DIAGNOSIS CYTOLOGY A. Pleural fluid, thoracentesis (cytospin, cellblock): - No malignant cells identified. - Acute inflammation. CYTOLOGY STUDY Slides are reviewed. CYTOLOGY GROSS A. Received is 100 ml of brown-cloudy fluid labeled with the patient's name and and designated per the requisition as Thoracentesis fluid. Submitted for cytology and cell block preparation. 09/28/2024 CPT: 12861,80642
--- NOTE | 2024-09-28 07:22 | CT_ITS ---
PROCEDURE: CHEST WITHOUT CONTRAST 09/28/2024 REASON FOR EXAM: NEW 5 CM LUNG MASS left lower lobe TECHNIQUE: Chest CT without contrast. Coronal and Sagittal reconstruction series were provided. One or more dose reduction techniques were used (e.g., Automated exposure control, adjustment of the mA and/or kV according to patient size, use of iterative reconstruction technique RADIATION DOSE SUMMARY: CTDlvol: 17.10 mGy DLP: 638.45 mGycm COMPARISON: Chest CT of 09/19/2024. FINDINGS: The patient presented for (and was consented for) planned left lower lobe CT- guided core biopsy. Reimaging demonstrates a very large left pleural fluid collection, with some areas of loculation noted. The previous apparent left lower lobe mass is not identified on today's examination. No pneumothorax is noted. Also, mild cardiomediastinal shift to the right is seen. Additionally, newly seen is a small pericardial effusion. Because of these findings, a core biopsy was not performed. The patient was then consented for an ultrasound-guided left thoracentesis. CT/Chest without Contrast IMPRESSION: 1. Large left pleural fluid collection, increased since the study of 09/19/2024 . 2. Small pericardial effusion now seen. 3. Additional findings as noted. Reading Location: [place] [address]
--- OUTSIDE RECORDS SUMMARY | 2024-09-28 07:26 | XMS RPT_ITS | CCD ---
Author Organization [facility] Care Team Providers Care Voip Network Engineer Name Role Phone Arabella Oden Attending Unavailable Self Referral, Patient Referring Unavailab Dago Weaver Primary Care Unavailable Arabella Oden Admitting Unavailable Lb Lyle Admitting Unavailable Lb Lyle Attending Unavailable Dago Mcnamara Primary Care Unavailable Dago Mcnamara Primary Care Provider Dago Mcnamara Unavailable Dago Mcnamara MD Primary Care Provider [phone] Dago Mcnamara MD Unavailable Dago Mcnamara MD Unavailable [phone] Dr. Dago Mcnamara Primary Care Provider [phone] Dr. Dago Mcnamara Referring Provider [phone] Dr. Arnaud Morrow Attending Provider [phone] Dago Mcnamara MD Primary Care Provider Dago Mcnamara MD Unavailable ALVIN OCHOA Referring Unavailable ALVIN OCHOA Admitting Unavailable DAGO MCNAMARA Primary Care Unavailable Dago Mcnamara MD Primary Care Provider Dago Mcnamara MD Unavailable Emanuel Aguilar DO Primary Care Provider [phone] DAGO MCNAMARA Primary Care Unavailable ABBE WOOD Attending Unavailable ABBE WOOD Attending Unavailable DAGO MCNAMARA Primary Care Unavailable ABBE WOOD Attending Unavailable DAGO MCNAMARA Primary Care Unavailable DWAYNE, ABBE RAY Attending Unavailable EMANUEL AGUILAR Primary Care Unavailable DWAYNE, ABBE RAY Attending Unavailable DWAYNE, ABBE RAY Admitting Unavailable DAGO MCNAMARA Primary Care Unavailable DWAYNE, ABBE RAY Attending Unavailable DWAYNE, ABBE RAY Admitting Unavailable DAGO MCNAMARA Primary Care Unavailable DWAYNE, ABBE RAY Attending Unavailable DWAYNE, ABBE RAY Admitting Unavailable DAGO MCNAMARA Primary Care Unavailable DWAYNE, ABBE RAY Attending Unavailable EMANUEL AUGILAR Primary Care Unavailable DWAYNE, ABBE RAY Admitting Unavailable Dr. Emanuel Aguilar DO Primary Care Provider Dr. Candido Rivera MD Emergency Provider [phone] Dr. Emanuel Aguilar DO Referring Provider Deisi BROACH TROUBLE SHOOTER-C, Adriana Attending Provider Emanuel Aguilar Primary Care Unavailable Emanuel Aguilar Referring Unavailable Deisi BROACH TROUBLE SHOOTER, Adriana Attending Unavailable Emanuel Aguilar Referring Unavailable Emanuel Aguilar Attending Unavailable Emanuel Aguilar Primary Care Unavailable Emanuel Aguilar Primary Care Unavailable Candido Rivera Attending Unavailable Deisi BROACH TROUBLE SHOOTER, Adriana Attending Unavailable Emanuel Aguilar Primary Care Unavailable Lipscomb BROACH TROUBLE SHOOTER, Adriana Referring Unavailable Deisi BROACH TROUBLE SHOOTER, Adriana Attending Unavailable Emanuel Aguilar Primary Care Unavailable Deisi BROACH TROUBLE SHOOTER, Adriana Referring Unavailable Deisi BROACH TROUBLE SHOOTER, Adriana Attending Unavailable Emanuel Aguilar Primary Care Unavailable Deisi BROACH TROUBLE SHOOTER, Adriana Referring Unavailable Emanuel Aguilar Primary Care Unavailable Adolfo Garcia Attending Unavailable Emanuel Aguilar Referring Unavailable Medications Current Medications Medication Drug Class(es) Dates Sig (Normalized) Sig (Original) amLODIPine 10 mg oral tablet (20 sources) Dihydropyridine Calcium Channel Nathan Start: 04-05-2020 End: 04-05-2020 take 10 mg by mouth once daily 10 mg, Oral, Daily, First dose on Sat04/05/20 at 0900 Start: 12-14-2019 take 1 tablet by anette th once daily Amlodipine 10 mg tablet Active 10 mg PO DAILY June 27, 2021 12:00am ezetimibe 10 mg / simvastatin 20 mg oral tablet (20 sources) HMG-CoA Reductase Inhibitor, Dietary Cholesterol Absorption Inhibitor Start: 02-18-2014 take 1 tablet by mouth once daily Ezetimibe-Simvastatin Active 1 TABLET PO DAILY February 18, 2014 11:30am Start: 02-12-2014 Ezetimibe-Simv astatin 1 TABLET tablet Active 1 {tbl} PO DAILY February 18, 2014 1:00am ammonium lactate 120 mg/ml topical cream (2 sources) Start: 01-28-2023 Ammonium Lacta te 12 % cream Active 1 NMA TOPICAL DAILY January 28, 2023 1:00am omeprazole 40 mg delayed release oral capsule (20 sources) Proton Pump Inhibitor Start: 06-20-2022 End: 01-13-2024 take 1 capsule by mouth twice daily Omeprazole 40 mg capsule,delayed release(DR/EC) Active 40 mg PO TWICE A DAY January 28, 2023 1:00am Start: 06-27-2021 End: 12-15-2021 take 1 capsule by mouth once daily Omeprazole 40 mg capsule,delayed release(DR/EC) Discontinued 40 mg PO DAILY June 27, 2021 12:00am December 15, 2021 2:59pm Start: 12-15-2020 End: 05-09-2021 take 1 capsule [...] End: 01-13-2024 take 1 tablet by mouth at bedtime Sucralfate 1 gram tablet Active 1 g PO before meals and at bedtime January 28, 2023 1:00am Start: 12-14-2021 End: 02-07-2022 take 10 mL [...] (20 sources) Vitamin B12 Start: 06-27-2021 take 1 tablet by mouth once daily Cyanocobalamin (Vitamin B-12) 500 mcg tablet Active 500 ug PO DAILY June 27, 2021 12:00am take 1 tablet by anette th once [...] / HYDROcodone bitartrate 5 mg oral tablet (5 sources) Opioid Agonist Start: 01-31-2017 End: 06-27-2021 Hydrocodone-Acetaminophen 1 TABLET tablet Discontinued 1 {tbl} PO EVERY 4 HOURS NEEDED as needed for Pain 10 January 31, 2017 1:00am June 27, 2021 9:41pm Start: 01-31-2017 End: 06-27-2021 take 1 tablet by mouth every four hours as needed Hydrocodone-Acetaminophen Discontinued 1 TABLET PO EVERY 4 HOURS NEEDED January 31, 2017 8:56am June 27, 2021 9:41pm apixaban 5 mg oral tablet (20 sources) Factor Xa Inhibitor Start: 01-12-2022 End: 06-09-2024 take 1 tablet by mouth twice daily Apixaban (Eliquis) 5 mg tablet Discontinued 5 mg PO TWICE A DAY 180 3 January 12, 2022 5:36pm January 28, 2023 11:22am Start: 12-15-2021 End: 12-15-2021 take 1 tablet by mouth twice daily Apixaban (Eliquis) 5 mg tablet Discontinued 5 mg PO TWICE A DAY 60 December 15, 2021 12:00am December 15, 2021 4:16pm calcium chloride 0.0014 meq/ml / potassium chloride 0.004 meq/ml / sodium chloride 0.103 meq/ml / sodium lactate 0.028 meq/ml injectable solution (2 sources) Start: 04-04-2020 End: 04-05-2020 take 75 mL intravenous route every hour 75 mL/hr, Intravenous, Continuous, Starting Sat04/04/20 at 1900 Start: 04-04-2020 End: 04-04-2020 lactated Ringers infusion cholecalciferol 0.025 mg oral capsule (20 sources) Vitamin D Start: 06-27-2021 End: 04-21-2024 take 1 capsule by mouth once daily Cholecalciferol (Vitamin D3) 25 mcg (1,000 unit) capsule Discontinued 25 ug PO DAILY June 27, 2021 12:00am April 21, 2024 8:43am take 1 tablet by anette th once daily in the morning cholecalciferol, vitamin D3, 1,000 unit tablet Take 1 (one) tablet (1,000 Units total) by mouth every morning . Active 0.4 ml enoxaparin sodium 100 mg/ml prefilled syringe (2 sources) Low Molecular Weight Heparin Start: 04-04-2020 End: 04-05-2020 inject 40 mg by subcutaneous injection once daily 40 mg, Subcutaneous, Daily, First dose on Sat04/05/20 at 0800 Administer in abdomen unless otherwise directed by prescriber. Notify physician if patient refuses. Indication: VTE Prophylaxis ezetimibe (ZETIA) 10 mg, simvastatin (ZOCOR) 20 mg for VYTORIN 10/20 (1 source) Start: 04-04-2020 End: 04-05-2020 take 1 dose by mouth once daily Oral, Nightly, First dose on Sat04/04/20 at 2100 hydroCHLOROthiazide 25 mg oral tablet (9 sources) Thiazide Diuretic Start: 02-18-2014 End: 06-27-2021 Hydrochlorothiazide 25 MG tablet Discontinued 12.5 mg PO DAILY February 18, 2014 1:00am June 27, 2021 9:41pm Start: 02-18-2014 End: 06-27-2021 take 12.5 mg [...] parts viscous lidocaine 2%, diphenhydramine 12.5mg/5mL, maalox [id number]/5mL (3 sources) Start: 07-31-2022 End: 08-10-2022 take 15 mL by mouth every four hours as needed magic mouthwash susp equal parts viscous lidocaine 2%, diphenhydramine 12.5mg/5mL, maalox [id number]/5mL Swish and spit 15 mL every 4 (four) hours as needed . 300 mL 0 07/31/2022 08/10/2022 Start: 07-18-2021 End: 07-28-2021 take 15 mL by mouth every four hours as needed magic mouthwash susp equal parts viscous lidocaine 2%, diphenhydramine 12.5mg/5mL, maalox [id number]/5mL Swish and spit 15 mL every 4 (four) hours as needed . 300 mL 0 07/18/2021 07/28/2021 Active Start: 01-02-2021 End: 01-12-2021 magic mouthwash susp equal p arts viscous lidocaine 2%, diphenhydramine 12.5mg/5mL, maalox [id number]-[id number]-65br/5mL Swish and spit 15 mL every 4 [...] pantoprazole 40 mg delayed release oral tablet (11 sources) Proton Pump Inhibitor Start: 12-18-2019 End: 04-04-2020 take 1 tablet by mouth once daily pantoprazole (PROTONIX) 40 MG tablet Take 40 mg by mouth daily . 0 12/18/2019 04/04/2020 Discontinued Start: 01-29-2017 End: 06-27-2021 take 1 tablet by mouth twice daily Pantoprazole 40 MG tablet Discontinued 40 mg PO TWICE A DAY January 29, 2017 1:00am June 27, 2021 9:41pm rivaroxaban 20 mg oral tablet (6 sources) Factor Xa Inhibitor Start: 01-12-2022 End: 01-12-2022 take 1 tablet by mouth once daily at dinner Rivaroxaban (Xarelto) 20 mg tablet Discontinued 20 mg PO DAILY 90 January 12, 2022 5:18pm January 12, 2022 5:35pm must administer with evening meal Start: 12-15-2021 End: 12-15-2021 take 1 tablet by mouth once daily at dinner Rivaroxaban (Xarelto) 20 mg tablet Discontinued 20 mg PO DAILY 30 December 15, 2021 12:00am December 15, 2021 4:16pm must administer with evening meal Problems Active Problems Problem Classification Problem Date Documented Da te Episodic/Chronic Abdominal hernia (20 sources) Paraesophageal hernia; 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 Patient is unaware of his atrial fibrillation and seems to go in and out of atrial fibrillation. Pulse and auscultation of heart sounds appear regular today. Echo 06/30/2021 with moderately enlarged left atrium, normal right atrium. Patient is asymptomatic. Patient is not on any antiarrhythmics or rate limiting medications. Heart rate 62 in office today. Kidney function remains stable on lab review. Complications of surgical procedures or medical care (20 sources) Complication of anesthesia; Translations: [Other complications of anesthesia, initial encounter] Onset: 03-21-2020 03-21-2020 Episodic Disorders of lipid metabolism (20 sources) Hyperlipidemia; Translations: [Hyperlipidemia, unspecified] Onset: 03-21-2020 03-21-2020 Chronic Comment on above: Most recent lipid pa homer 01/20/2024 total cholesterol 115, triglyceride 48, LDL 43, HDL 62. LFTs WNL. Esophageal disorders (20 sources) Viveros's esophagus; Translations: [Gastroesophageal reflux disease] Onset: 01-05-2020 01-05-2020 Chronic Essential hypertension (20 sources) Hypertensive disorder; Translations: [Essential (primary) hypertension] Onset: 03-21-2020 03-21-2020 Chronic Nonspecific chest pain (3 sources) Chest pain; Translations: [Chest pain, unspecified] Onset: 09-23-2024 09-19-2024 Episodic Other aftercare (2 sources) Surgical follow-up; Translations: [Encounter for surgical aftercare following surgery on the digestive system] Episodic Other circulatory disease (2 sources) H/O: atrial fibrillation; Translations: [Personal history of other diseases of the circulatory system] 09-19-2024 Episodic Other gastrointestinal disorders (20 sources) History of Viveros's esophagus; Translations: [Personal history of other diseases of the digestive system] Onset: 10-21-2020 Episodic Other gastrointestinal disorders (2 sources) Personal history of other diseases of the digestive system; Translations: [Personal history of other diseases of the digestive system] Onset: 12-15-2020 Episodic Other lower respiratory disease (2 sources) Dyspnea; Translations: [Shortness of breath] 09-22-2024 Episodic Other lower respiratory disease (2 sources) Lung mass; Translations: [Other nonspecific abnormal finding of lung field] 09-22-2024 Episodic Comment on above: Left lower lobe Other lower respiratory disease (1 source) Other nonspecific abnormal finding of lung field; Translations: [Other nonspecific abnormal finding of lung field] Onset: 09-26-2024 Episodic Other lower respiratory disease (2 sources) Dyspnea, unspecified; Translations: [Dyspnea, unspecified] Onset: 09-22-2024 Episodic Other lower respiratory disease (2 sources) Shortness of breath; Translations: [Shortness of breath] Onset: 09-22-2024 Episodic Pleurisy; pneumothorax; pulmonary collapse (3 sources) Pleural effusion; Translations: [Pleural effusion, not elsewhere classified] 09-19-2024 Episodic Residual codes; unclassified (20 sources) History of fundoplication; Translations: [Other specified postprocedural states] Onset: 10-21-2020 Episodic Residual codes; unclassified (4 sources) Other specified postprocedural states; Translations: [Other specified postprocedural states] Onset: 04-29-2024 Episodic Unclassified (1 source) Patient encounter status; Translations: [Elective surgery] Unclassified (4 sources) Preprocedural examination done; Translations: [Pre-op examination] Onset: 03-21-2020 03-21-2020 Unclassified (2 sources) Call his office this Saturday to get an appointment. Tell them you have a left pleural effusion that needs further evaluation. Past or Other Problems Problem Classification Problem Date Documented Date Episodic/Chronic Other gastrointestinal disorders (20 sources) Heartburn; Translations: [Heartburn] Onset: 0 01-05-2020 Episodic Other gastrointestinal disorders (20 sources) Dysphagia; Translations: [Dysphagia, pharyngoesophageal phase] Onset: 0 01-05-2020 Episodic Other gastrointestinal disorders (20 sources) Abdominal bloating; Translations: [Abdominal distension (gaseous)] Onset: 0 01-05-2020 Episodic Other screening for suspected conditions (not mental disorders or infectious disease) (1 source) Encounter for screening for malignant neoplasm of prostate; Translations: [Encounter for screening for malignant neoplasm of prostate] Onset: 5 Episodic Residual codes; unclassified (20 sources) Patient encounter status; Translations: [Encounter for procedure for purposes other than remedying health state, unspecified] Onset: 1 Episodic Results Test Name Value Interpretation Reference Range Facility Partial Thromboplast Timeon 09-22-2024 aPTT Coag (Bld) [Time] 40.9 s High 24.1-36.2 [facility] Comment on above: Performed By: #### L 300.3900, L300.4310, L100.1900 ####[facility] [address] [place], [address] Platelet Counton 09-22-2024 Platelets (Bld) [#/Vol] 358 10*3/uL Normal 150-450 [facility] Comment on above: Performed By: #### L 300.3900, L300.4310, L100.1900 ####[facility] [address] [facility], [address] Prothrombin Time w/INRon INR Coag (PPP) [Relative time] 1.8 {INR} Normal [facility] Comment on above: Performed By: #### L 300.3900, L300.4310, L100.1900 ####[facility] [address] [place], [address] PT Coag (PPP) [Time] 21.4 s High 11.7-14.9 [facility] Comment on above: Performed By: #### L 300.3900, L300.4310, L100.1900 ####[facility] [address] [place], [address] Pulmonary Visit Reporton Pulmonary Visit Report [facility] [place] [address] [place], [place] [address] OFFICE VISIT Date of Service: 09/22/24 MR#: [id number] Acct: [id number] Name: ARY FORDE Rep #: [id number] : 1950 Provider: PEG Lipscomb Age/Sex: 74/M [place] [facility] [place] Status: Signed Assessment and Plan Assessment and Plan (1) Lung mass: Status: Acute Comment: Left lower lobe Plan: New. He has been symptomatic with new onset chest pain/tightness. It is somewhat controlled now on maximized NSAIDs. This case has been reviewed with Dr Han Schumacher as well as our Interventional Rad iologist. Plan is to proceed with CT guided biopsy. Lab work will be obtained today to make sure he is not a high risk for bleeding. Radiology staff will be in touch with him to direct him when to hold Eliquis. All questions were answered. He will return to the office once tissue pathology has returned. If the results are consistent with malignancy, I will order a PET and consult Oncology. If the tissue does not reveal malignancy, we will continue surveillance by repeating a diagnostic CT chest in 3 months. (2) Pleural effusion on left: Status: Acute Plan: I have asked his daughter to check an ambulatory oximetry at home. If they find he is hypoxic they will contact the office and we will order a pulmonary stress test. We will continue to monitor and intervene with a thoracentesis when indicated. (3) Atrial fibrillation: Status: Chronic Qualifiers: Atrial fibrillation type: paroxysmal Qualified Code(s): I48.0 - Paroxysmal atrial fibrillation Plan: This complicates exam, plan, care and prognosis. He is on anticoagulation, which will need to be held for the procedure. Orders: Orders Partial Thromboplast Time Today I48.0 - Paroxysmal atrial fibrillation, I48.91 - Unspecified atrial fibrillation Platelet Count Today I48.0 - Paroxysmal atrial fibrillation, R06.00 - Dyspnea, unspecified Prothrombin Time w/INR Today I48.0 - Paroxysmal atrial fibrillation, I48.91 - Unspecified atrial fibrillation Biopsy/Inj or Needle Placement Today R91.8 - Other nonspecific abnormal finding of lung field PFT Complete - DLCO, Spirometry b/a bronchodilators, lung volumes Today R06.02 - Shortness of breath Plan Details Additional Comments: This note was generated with Yedda dictation software. It may contain incorrect words, spelling, and punctuation that were not noted in checking the note before signing. I have spent 63 minutes today reviewing labs, records and history. Time includes coordinating care, interpretation of tests, discussion with patient's other health care providers via telephone. This also includes time I spent with the patient for exam, treatment plan and education as well as documenting clinical information. Follow Up: 1 Month HPI HPI Comments Details: This patient presents to the office today for an initial consultation regarding an abnormal CT chest. He is ambulatory and on room air. He is accompanied today by his and daughter. He was recently seen in the emergency department with complaints of chest pain. The workup included an EKG and lab work that included a D-dimer that resulted elevated. CTA of the chest was negative for PE but showed a left pleural effusion and incidentally left lung mass. Ultimately, the patient was diagnosed with esophageal spasm causing the discomfort. Has known Viveros's esophagus. Currently the chest discomfort that he sought ER visit for is significantly improved, but not completely alleviated. He is utilizing Tylenol and ibuprofen for the discomfort. Approximately 1 month ago he developed a cough that is productive of pale yellow-colored sputum. He denies any hemoptysis. He denies any wheezing, chest pain or palpitations. He describes it as a chest tightness that occurs on the left side of his chest. He denies any fever, chills or body aches. He is on anticoagulation for atrial fibrillation, compliant with Eliquis twice daily. He has not had any bleeding side effects such as hematemesis, hematochezia or melena stools. He denies any decrease in energy level not noticed any fatigue. The patient is up-to-date on screenings, including colonoscopy and state. He frequently has his endoscopies due to Viveros's esophagus. He has never seen a tool profiling machine set up operator. He is a lifelong never smoker. He is never been prescribed an inhaler. He has a pulse ox meter at home and checks his saturation occasionally at rest. On room air he is typically 95% or higher. They have not checked his oxygen saturation on exertion. He has not had any unintentional weight loss. However, when he has these endoscopies for his Viveros's esophagus which include intervention, it causes him to have a decreased appetite for several days and he has been known to regularly fluctu (more content not included)... Normal [facility] 12 Lead EKGon 09-19-2024 12 Lead EKG [facility] [address] [place] [address] 12 Lead EKG 09/19/24 1230 MR#: [id number] Acct: [id number] Name: ARY FORDE Rep #: [id number] : 1950 74 From: Arnaud Morrow MD Attending Dr: Status: DEP ER Ordering Dr: Candido Rivera MD Date: 09/19/24 Location: ED Sex: M C Admitted: Test Reason : CP Blood Pressure : */* mmHG Vent. Rate : 92 BPM Atrial Rate : 92 BPM P-R Int : 132 ms QRS Dur : 80 ms QT Int : 358 ms P-R-T Axes : 11 0 39 degrees QTcB Int : 442 ms Sinus rhythm with Premature atrial complexes Possible Left atrial enlargement Cannot rule out Inferior infarct , age undetermined Abnormal ECG Confirmed by ARNAUD MORROW MD ([id number]), development editor KIRSTEN CHIN ([id number]) on 09/21/2024 1:11:03 PM Referred By: Confirmed By: ARNAUD MORROW MD 09/21/24 1311 Date Arnaud Morrow MD CC: Dr. Candido Rivera MD; Dr. Emanuel Aguilar DO Signed Normal [facility] Absolute lymphocyte countOrd ered By: Candido Rivera on 09-19-2024 Lymphocytes Auto (Unsp spec) [#/Vol] 1.67 10*3/uL 0.83-4.51 [facility] Absolute neutrophil countOrd ered By: Candido Rivera on 09-19-2024 Neutrophils (Bld) [#/Vol] 7.3 10*3/uL 2.0-7.7 [facility] Anion gap in Serum or Plasma Ordered By: Candido Rivera on 09-19-2024 Anion gap [Moles/Vol] 13 mmol/L 5-15 [facility] Automated lymphocyte count a s percentage of total leukocytesOrdered By: Candido Rivera on 09-19-2024 Lymphocytes/100 WBC Auto (Unsp spec) 17.0 % Low 19-41 [facility] BUN/creatinine ratioOrdered By: Candido Rivera on 09-19-2024 Urea nitrogen/Creatinine [Mass ratio] 15.0 mg/mg 10- [facility] Basic Metabolic Profile (BMP )on 09-19-2024 BUN/CRE 15.0 RATIO Normal - [facility] Comment on above: Performed By: #### L 100.0100, L500.2500, L501.4021 ####[facility] [address] [place], [address] Calcium [Mass/Vol] 9.1 mg/dL Normal 7.6-11.0 [facility] Comment on above: Performed By: #### L 100.0100, L500.2500, L501.4021 ####[facility] [address] [place], [address] Chloride [Moles/Vol] 100 mmol/L Normal 98-108 [facility] Comment on above: Performed By: #### L 100.0100, L500.2500, L501.4021 ####[facility] [address] [place], [address] CO2 [Moles/Vol] 23.3 mmol/L Normal 21.0-32.0 [facility] Comment on above: Performed By: #### L 100.0100, L500.2500, L501.4021 ####[facility] [address] [place], [address] Creatinine [Mass/Vol] 0.70 mg/dL Normal 0.70-1.20 [facility] Comment on above: Performed By: #### L 100.0100, L500.2500, L501.4021 ####[facility] [address] [place], [address] ECRCL 86.28 ml/min Normal 50-250 [facility] Comment on above: Performed By: #### L 100.0100, L500.2500, L501.4021 ####[facility] [address] [place], [address] GAP 13 Normal 5-15 [facility] Comment on above: Performed By: #### L 100.0100, L500.2500, L501.4021 ####[facility] [address] [place], [address] GFR/1.73 sq M.predicted among non-blacks MDRD (S/P/Bld) [Vol rate/Area] 97 mL/min/{1.73_m2} Normal >60 [facility] Comment on above: Result Comment: mL/m in/1.73m2 CKD-EPI Creatinine Equation (2020) Performed By: #### L 100.0100, L500.2500, L501.4021 ####[facility] [address] [place], [address] Glucose [Mass/Vol] 152 mg/dL High 70-99 [facility] Comment on above: Performed By: #### L 100.0100, L500.2500, L501.4021 ####[facility] [address] [place], [address] Potassium [Moles/Vol] 3.7 mmol/L Normal 3.3-5.1 [facility] Comment on above: Performed By: #### L 100.0100, L500.2500, L501.4021 ####[facility] [address] [place], [address] Sodium [Moles/Vol] 136 mmol/L Normal 133-145 [facility] Comment on above: Performed By: #### L 100.0100, L500.2500, L501.4021 ####[facility] [address] [place], [address] Urea nitrogen [Mass/Vol] 11 mg/dL Normal 4-19 [facility] Comment on above: Performed By: #### L 100.0100, L500.2500, L501.4021 ####[facility] [address] [place], [address] Basophil percentageOrdered B y: Candido Rivera on 09-19-2024 Basophils/100 WBC (Bld) 0.4 % 0-1 [facility] CBC W/Diff, Automatedon Absolute Lymph 1.67 X10 3/uL Normal 0.83-4.51 [facility] Comment on above: Performed By: #### L 100.0100, L500.2500, L501.4021 #### [facility] [address] [place], [address] Absolute Neut 7.3 X10 3/uL Normal 2.0-7.7 [facility] Comment on above: Performed By: #### L 100.0100, L500.2500, L501.4021 #### [facility] [address] [place], [address] Basophils/100 WBC (Bld) 0.4 % Normal 0-1 [facility] Comment on above: Performed By: #### L 100.0100, L500.2500, L501.4021 #### [facility] [address] [place], [address] Eosinophils/100 WBC (Bld) 2.1 % Normal 0-5 [facility] Comment on above: Performed By: #### L 100.0100, L500.2500, L501.4021 #### [facility] [address] [place], [address] Erythrocyte distribution width (RBC) [Ratio] 12.3 % Normal 11.6-14.6 [facility] Comment on above: Performed By: #### L 100.0100, L500.2500, L501.4021 #### [facility] [address] [place], [address] Hematocrit (Bld) [Volume fraction] 36.9 % Low 40-54 [facility] Comment on above: Performed By: #### L 100.0100, L500.2500, L501.4021 #### [facility] [address] [place], [address] Hemoglobin (Bld) [Mass/Vol] 12.3 g/dL Low 13.0-16.5 [facility] Comment on above: Performed By: #### L 100.0100, L500.2500, L501.4021 #### [facility] [address] [place], [address] IG% 0.300 Normal 0.0-0.9 [facility] Comment on above: Result Comment: IG% - Immature Granulocytes (promyelocytes, myelocytes and metamyelocytes) > 1% indicates that a LEFT SHIFT is Present. Performed By: #### L 100.0100, L500.2500, L501.4021 #### [facility] [address] [place], [address] Lymphocytes/100 WBC (Bld) 17.0 % Low 19-41 [facility] Comment on above: Performed By: #### L 100.0100, L500.2500, L501.4021 #### [facility] [address] [place], [address] MCH (RBC) [Entitic mass] 29.6 pg Normal 27.0-32.0 [facility] Comment on above: Performed By: #### L 100.0100, L500.2500, L501.4021 #### [facility] [address] [place], [address] MCHC (RBC) [Mass/Vol] 33.3 g/dL Normal 32-36 [facility] Comment on above: Performed By: #### L 100.0100, L500.2500, L501.4021 #### [facility] [address] [place], [address] MCV (RBC) [Entitic vol] 88.9 fL Normal 80-94 [facility] Comment on above: Performed By: #### L 100.0100, L500.2500, L501.4021 #### [facility] [address] [place], [address] Monocytes/100 WBC (Bld) 5.9 % Normal 0-10 [facility] Comment on above: Performed By: #### L 100.0100, L500.2500, L501.4021 #### [facility] [address] [place], [address] Neutrophils/100 WBC (Bld) 74.3 % High 47-70 [facility] Comment on above: Performed By: #### L 100.0100, L500.2500, L501.4021 #### [facility] [address] [place], [address] Nucleated RBC (Bld) [#/Vol] 0 10*3/uL Normal 0-5 [facility] Comment on above: Performed By: #### L 100.0100, L500.2500, L501.4021 #### [facility] [address] [place], [address] Platelet mean volume (Bld) [Entitic vol] 9.2 fL Normal 6.2-12.0 [facility] Comment on above: Performed By: #### L 100.0100, L500.2500, L501.4021 #### [facility] [address] [place], [address] Platelets (Bld) [#/Vol] 380 10*3/uL Normal 150-450 [facility] Comment on above: Performed By: #### L 100.0100, L500.2500, L501.4021 #### [facility] [address] [place], [address] RBC (Bld) [#/Vol] 4.15 10*6/uL Low 4.6-6.2 [facility] Comment on above: Performed By: #### L 100.0100, L500.2500, L501.4021 #### [facility] [address] [place], [address] RDW SD 40.0 fl Normal 35.1-43.9 [facility] Comment on above: Performed By: #### L 100.0100, L500.2500, L501.4021 #### [facility] [address] [place], [address] WBC (Bld) [#/Vol] 9.8 10*3/uL Normal 4.4-11.0 [facility] Comment on above: Performed By: #### L 100.0100, L500.2500, L501.4021 #### [facility] [address] [place], [address] CTA Chest W/WO Contraston CTA Chest W/WO Contrast [facility] [address] [place] [address] CTA Chest W/WO Contrast MR#: [id number] Acct: [id number] Name: ARY FORDE Rep #: [id number] : 1950 M 74 From: Emanuel Zee MD PCP: Dr. Emanuel Aguilar, DO Status: REG ER Study: CTA Chest W/WO Contrast Date of Exam: 09/19/24 Exam# [id number] Ordering Dr: Candido Rivera MD EXAM: CT Angiography Chest Without and With Intravenous Contrast CLINICAL INDICATION: LEFT-SIDED SUDDEN ONSET PLEURITIC CHEST PAIN TECHNIQUE: Axial computed tomographic angiography images of the chest without and with intravenous contrast. This CT exam was performed using one or more of the following dose reduction techniques: automated exposure control, adjustment of the mA and/or kV according to patient size, and/or use of iterative reconstruction technique. MIP reconstructed images were created and reviewed. COMPARISON: No relevant prior studies available. FINDINGS: LIMITATIONS: Suboptimal opacification of the pulmonary arteries. PULMONARY ARTERIES: No pulmonary embolism is identified. Some of the distal pulmonary arteries cannot be evaluated due to suboptimal opacification. AORTA: No acute findings. No thoracic aortic aneurysm. LUNGS AND PLEURAL SPACES: Lung emphysema/COPD with left pleural effusion and associated compressive atelectasis. Nodular opacity in the left lower lobe measuring up to 5.0 cm. Mass can not be excluded. No pneumothorax. HEART: Unremarkable. No cardiomegaly. No significant pericardial effusion. No evidence of RV dysfunction. MEDIASTINUM: Scattered mediastinal lymph nodes some of which are upper limits of normal in size and are most likely reactive lymph nodes. Moderate esophageal hiatal hernia. BONES/JOINTS: No acute fracture. No dislocation. SOFT TISSUES: Unremarkable. LYMPH NODES: See above. CT/CTA Chest W/WO Contrast IMPRESSION: 1. No pulmonary embolism is identified. Some of the distal pulmonary arteries cannot be evaluated due to suboptimal opacification. 2. Lung emphysema/COPD with left pleural effusion and associated compressive atelectasis. Nodular opacity in the left lower lobe measuring up to 5.0 cm. Mass can not be excluded. 3. Scattered mediastinal lymph nodes some of which are upper limits of normal in size and are most likely reactive lymph nodes. 4. Moderate esophageal hiatal hernia. Reading Location: [facility] CC: Dr. Candido Rivera MD; Dr. Emanuel Aguilar DO Population Health Manager: Signed Normal [facility] Carbon dioxide, total [Moles /volume] in Central venous bloodOrdered By: Candido Rivera on 09-19-2024 CO2 [Moles/Vol] 23.3 mmol/L 21.0-32.0 [facility] Chest 1 View (Portable)on Chest 1 View (Portable) [facility] [address] [place] [address] Chest 1 View (Portable) MR#: [id number] Acct: [id number] Name: ARY FORDE Rep #: [id number] : 1950 M 74 From: Hamilton Castelan MD PCP: Dr. Emanuel Aguilar DO Status: REG ER Study: Chest 1 View (Portable) Date of Exam: 09/19/24 Exam# [id number] Ordering Dr: Candido Rivera MD PROCEDURE: CHEST 1 VIEW (PORTABLE) 09/19/2024 REASON FOR EXAM: CHEST PAIN TECHNIQUE: Frontal view of the chest. COMPARISON: None FINDINGS: Hardware: EKG leads Heart: Top-normal size. Aorta is mildly tortuous. Lungs: Platelike atelectasis right lung base. Atelectasis or airspace disease in the lingula and left lower lobe. Scant pleural fluid on the left. Bones: Degenerative changes are identified within the thoracic spine. RAD/Chest 1 View (Portable) IMPRESSION: Atelectasis or airspace disease left lower lobe. Consider pneumonia in the appropriate scenario. Reading Location: [facility] CC: Dr. Candido Rivera MD; Dr. Emanuel Aguilar DO Population Health Manager: Signed Normal [facility] Chloride assayOrdered By: Christian Rivera on 09-19-2024 Chloride [Moles/Vol] 100 mmol/L 98-108 [facility] D-Dimer Quantitative (DVT/PE )on 09-19-2024 D-DIMER QUANT 3.94 FEU/ug/m Invalid Interpretation Code 0.27-0.49 [facility] Comment on above: Result Comment: CRIT ICAL VALUE CALLED TO Saleem VASQUEZ 09/19/24 1343 [address]. RESULTS READ BACK BY SAME. D-Dimer ELEVATED (>0.49): Additional studies and clinical assessments are indicated to conclude diagnosis of: Deep Vein Thrombosis (DVT) or Pulmonary Embolism (PE) Performed By: #### L 300.8000 ####[facility] [address] [place], [address] Emergency Department Summary on 09-19-2024 Emergency Department Summary [facility] Medical Records Department [address] [place] [address] Emergency Department Summary 09/19/24 MR#: [id number] Acct: [id number] Name: ARY FORDE Rep #: [id number] : 1950 74 From: Candido Rivera MD PCP: Dr. Emanuel Aguilar, DO Status:REG ER Location: ED HPI History of Present Illness Chief Complaint: Chest Pain Informant: patient Onset/Context/Timing Onset: Today Activity at onset: sudden Timing: Continuous Quality: Positive for Sharp Location: Left Chest Current Severity: Moderate Maximum Severity: Severe Worsened By: Breathing Relieved By: Nothing Associated Symptoms: Positive for Dyspnea; Negative for Nausea, Vomiting, Diaphoresis, Cough, Fever, Lightheadedness, Acid Reflux or Palpitations Narrative Narrative: 74-year-old male with past medical history of A-fib, hypertension and Viveros's esophagitis. Typically is on Eliquis it has been stopped since Saturday due to an upcoming endoscopy. No prior history of DVT or PE. No prior AR, coronary disease or stents. States he was at home he was at rest about hour ago he had sudden onset of left-sided chest pain. Associated shortness of breath. No diaphoresis no nausea. No leg pain or swelling. No hemoptysis. No recent travel, surgery or immobilization. No having the pain currently. Was brought in by squad. He was given aspirin and nitro and nitro would not give him any significant relief. Prior Similar Symptoms: No Recent Illness/Hospitalization: No CVD Risk Factors: Positive for Hypertension; Negative for Diabetes PE Risk Factors: Negative for Recent Travel/Surgery, Recent Immobilization, Prior DVT or PE, Cancer or OCP + Smoking + >/=35 TAD Risk Factors: Negative for Marfan's Syndrome [facility] Medical History Atrial fibrillation Premature atrial contractions Hyperlipidemia Essential hypertension Ventral incisional hernia Arthritis Home Medications ???Medication ???Instructions ???Recorded ???Last Taken ???Type ezetimibe 10 mg-simvastatin 20 mg 1 tab PO DAILY 02/18/14 Unknown H istory tablet amlodipine 10 mg tablet 10 mg PO DAILY 06/27/21 Unknown Hi story cyanocobalamin (vitamin B-12) 500 500 mcg PO DAILY 06/27/21 Unknown History mcg tablet ammonium lactate 12 % topical cream 1 applic topical DAILY 01/28/23 Unknown History omeprazole 40 mg capsule,delayed 40 mg PO BID 01/28/23 Unknown Hist ory release sucralfate 1 gram tablet 1 g PO QACHS 01/28/23 Unknown Hist ory apixaban 5 mg tablet (Eliquis) 5 mg PO BID [facility]ing [facility] 09/16/24 Rx [facility] tabs Allergy/AdvReac Type Severity Reaction Status Date / Time No Known Allergies Allergy Verified 09/19/24 12:27 Family History Father Heart disease Surgical History Viveros esophagus (12/2022) History of ventral hernia repair History of Santos fundoplication History of hernia surgery ( 09/2021) Social History Smoking Status: Never smoker alcohol intake: current alcohol intake frequency: a few times a week substance use type: does not use caffeine: Yes Type: coffee Number of servings: 2 ROS ROS ED ROS Narrative Denies recent illness. Denies recent exertional chest pain. Denies recent exertional dyspnea. No falls or chest wall trauma. Constitutional Constitutional ED: Denies chills or fever(s) Eyes Eyes: Reports none ENT ENT ED: Denies ear pain Cardiovascular Cardiovascular: Reports chest pain; Denies palpitations or racing heartbeat Respiratory/Chest Respiratory/Chest: Reports dyspnea Gastrointestinal Gastrointestinal: Denies abdominal pain Genitourinary Genitourinary ED: Denies dysuria or hematuria Musculoskeletal Musculoskeletal: Denies arthralgias or back pain Integumentary Denies abscess Neurologic Neurologic: Denies headache(s) Psychiatric Psychiatric: Denies anxiety Endocrine Endocrinology: Denies cold intolerance Hematologic/Lymphatic Hematologic/Lymphatic: Denies easy bleeding or easy bruising Allergic/Immunologic Allergic/Immunologic ED: Denies mouth swelling, tongue swelling or urticaria EXAM Physical Exam Narrative Exam Narrative: 73-year-old male sitting upright in bed. Vital signs are stable he does have a pulse ox in the 90% on room air borderline hypoxic. Family is at bedside. H EENT exam pupils round react light. Extra motions are intact. Neck is nontender JVD. No lymphadenopathy. Lungs clear to auscultation bilaterally. Heart regular rhythm rate about 90 no murmur. Chest wall there is no reproducible tenderness no ecchymosis or bruising no subcu air. Abdomen soft nontender. Moving all 4 ext (more content not included)... Normal [facility] Eosinophil percentageOrdered By: Candido Rivera on 09-19-2024 Eosinophils/100 WBC (Bld) 2.1 % 0-5 [facility] Erythrocyte distribution wid th ratioOrdered By: Candido Rivera on 09-19-2024 Erythrocyte distribution width (RBC) [Ratio] 12.3 % 11.6-14.6 [facility] Erythrocyte distribution wid th standard deviationOrdered By: Candido Rivera on 09-19-2024 Erythrocyte distribution width (RBC) [Ratio] 40.0 fl 35.1-43.9 [facility] Glomerular filtration rate ( GFR) estimation/1.73 sq m using serum, plasma, or whole bOrdered By: Candido Rivera on 09-19-2024 GFR/1.73 sq M.predicted among non-blacks MDRD (S/P/Bld) [Vol rate/Area] 97 mL/min/{1.73_m2} >60 [facility] Comment on above: mL/min/1.73m2 CKD-EP I Creatinine Equation (2020) Hematocrit Auto (Bld) [Volum e fraction]Ordered By: Candido Rivera on 09-19-2024 Hematocrit (Bld) [Volume fraction] 36.9 % Low 40-54 [facility] Hemoglobin measurementOrdere d By: Candido Rivera on 09-19-2024 Hemoglobin (Bld) [Mass/Vol] 12.3 g/dL Low 13.0-16.5 [facility] Immature granulocytes/100 WB C Auto (Bld)Ordered By: Candido Rivera on 09-19-2024 Immature granulocytes/100 WBC (Bld) 0.300 % 0.0-0.9 [facility] Comment on above: IG% - Immature Granu locytes (promyelocytes, myelocytes and metamyelocytes) > 1% indicates that a LEFT SHIFT is Present. L501.4021on 09-19-2024 Trop T High Sen 11 ng/L Normal <=22 [facility] Comment on above: Performed By: #### L 100.0100, L500.2500, L501.4021 ####[facility] [address] [place], [place], [id number] MCV (mean corpuscular volume ) determinationOrdered By: Candido Rivera on 09-19-2024 MCV (RBC) [Entitic vol] 88.9 fL 80-94 [facility] Mean corpuscular hemoglobin (MCH) determinationOrdered By: Candido Rivera on 09-19-2024 MCH (RBC) [Entitic mass] 29.6 pg 27.0-32.0 [facility] Mean corpuscular hemoglobin concentration (MCHC) determinationOrdered By: Candido Rivera on 09-19-2024 MCHC (RBC) [Mass/Vol] 33.3 g/dL 32-36 [facility] Mean platelet volume determi nationOrdered By: Candido Rivera on 09-19-2024 Platelet mean volume (Bld) [Entitic vol] 9.2 fL 6.2-12.0 [facility] Monocyte percentageOrdered B y: Candido Rivera on 09-19-2024 Monocytes/100 WBC (Bld) 5.9 % 0-10 [facility] Neutrophil percentageOrdered By: Candido Rivera on 09-19-2024 Neutrophils/100 WBC (Bld) 74.3 % High 47-70 [facility] Nucleated red blood cell per centageOrdered By: Candido Rivera on 09-19-2024 Nucleated RBC/100 WBC (Bld) [Ratio] 0 % 0-5 [facility] Platelet countOrdered By: Christian Rivera on 09-19-2024 Platelets (Bld) [#/Vol] 380 10*3/uL 150-450 [facility] Potassium measurement (mass/ volume)Ordered By: Candido Rivera on 09-19-2024 Potassium (Unsp spec) [Mass/Vol] 3.7 mmol/L 3.3-5.1 [facility] RBC Auto (Bld) [#/Vol]Ordere d By: Candido Rivera on 09-19-2024 RBC (Bld) [#/Vol] 4.15 10*6/uL Low 4.6-6.2 [facility] Serum creatinine measurement (mass/volume)Ordered By: Candido Rivera on 09-19-2024 Creatinine [Mass/Vol] 0.70 mg/dL 0.70-1.20 [facility] Serum glucose measurement (m ass/volume)Ordered By: Candido Rivera on 09-19-2024 Glucose [Mass/Vol] 152 mg/dL High 70-99 [facility] Serum or plasma calcium caesar urement (mass/volume)Ordered By: Candido Rievra on 09-19-2024 Calcium [Mass/Vol] 9.1 mg/dL 7.6-11.0 [facility] Serum or plasma urea nitroge n measurement (mass/volume)Ordered By: Candido Rivera on 09-19-2024 Urea nitrogen [Mass/Vol] 11 mg/dL 4-19 [facility] Sodium levelOrdered By: Candido Rivera on 09-19-2024 Sodium [Moles/Vol] 136 mmol/L 133-145 [facility] Troponin T HS 2 HRon 025 Trop T High Sen 8 ng/L Normal <=22 [facility] Comment on above: Performed By: #### L 499.0042 #### [facility] [address] [place], [place], [address] Troponin T HS 4 HRon 025 Trop T High Sen Normal <=22 [facility] Comment on above: Result Comment: Canc elled via OM: Order cancelled - Patient discharged Performed By: #### L 499.0043 ####[facility] [address] [place], [place], [id number] Troponin T.cardiac [Mass/vol ume] in Serum or Plasma by High sensitivity methodOrdered By: Candido Rivera on 09-19-2024 Troponin T.cardiac High sensitivity method [Mass/Vol] 8 ng/L <22 [facility] Troponin T.cardiac High sensitivity method [Mass/Vol] 11 ng/L <22 [facility] White blood cell (WBC) count Ordered By: Candido Rivera on 09-19-2024 WBC (Bld) [#/Vol] 9.8 10*3/uL 4.4-11.0 [facility] Cardiology Visit Reporton Cardiology Visit Report [facility] [address] [place] [address] OFFICE VISIT Date of Service: 04/21/24 MR#: [id number] Acct: [id number] Name: ARY FORDE Rep #: [id number] : 1950 Provider: NICOLE Bahena Age/Sex: 74/M [place] [facility] Status: Signed HPI HPI History of Present [...] Intake Visit Reasons: 1 Y FU/MOVED FROM [facility] [employer] Consultant Required: No Is patient in pain?: No [...] estimated ejec (more content not included)... Normal [facility] H AND Josué 04-14-2024 H AND P [facility] [address] [facility] [place] (11) [facility] [address] [facility] [id number] Ary Forde is a 73 y.o. [...] his are getting ready to leave for [place] for 2 months. History - Past Medical [...] facility-administered medicati (more content not included)... Normal [facility] CBC W/Diff, Automatedon 12-0 Absolute Lymph 1.48 X10 3/uL Normal 0.83-4.51 [facility] Comment on above: Performed By: #### L 500.4050, L100.0100, L501.9910, L500.4100 #### [facility] [address] [place], [address] Absolute Neut 2.6 X10 3/uL Normal 2.0-7.7 [facility] Comment on above: Performed By: #### L 500.4050, L100.0100, L501.9910, L500.4100 #### [facility] [address] [place], [address] Basophils/100 WBC (Bld) 1.5 % High 0-1 [facility] Comment on above: Performed By: #### L 500.4050, L100.0100, L501.9910, L500.4100 #### [facility] [address] [place], [address] Eosinophils/100 WBC (Bld) 3.0 % Normal 0-5 [facility] Comment on above: Performed By: #### L 500.4050, L100.0100, L501.9910, L500.4100 #### [facility] [address] [place], [address] Erythrocyte distribution width (RBC) [Ratio] 12.1 % Normal 11.6-14.6 [facility] Comment on above: Performed By: #### L 500.4050, L100.0100, L501.9910, L500.4100 #### [facility] [address] [place], [address] Hematocrit (Bld) [Volume fraction] 42.5 % Normal 40-54 [facility] Comment on above: Performed By: #### L 500.4050, L100.0100, L501.9910, L500.4100 #### [facility] [address] [place], [address] Hemoglobin (Bld) [Mass/Vol] 13.8 g/dL Normal 13.0-16.5 [facility] Comment on above: Performed By: #### L 500.4050, L100.0100, L501.9910, L500.4100 #### [facility] [address] [place], [address] IG% 0.200 Normal 0.0-0.9 [facility] Comment on above: Result Comment: IG% - Immature Granulocytes (promyelocytes, myelocytes and metamyelocytes) > 1% indicates that a LEFT SHIFT is Present. Performed By: #### L 500.4050, L100.0100, L501.9910, L500.4100 #### [facility] [address] [place], [address] Lymphocytes/100 WBC (Bld) 31.8 % Normal 19-41 [facility] Comment on above: Performed By: #### L 500.4050, L100.0100, L501.9910, L500.4100 #### [facility] [address] [place], [address] MCH (RBC) [Entitic mass] 29.9 pg Normal 27.0-32.0 [facility] Comment on above: Performed By: #### L 500.4050, L100.0100, L501.9910, L500.4100 #### [facility] [address] [place], [address] MCHC (RBC) [Mass/Vol] 32.5 g/dL Normal 32-36 [facility] Comment on above: Performed By: #### L 500.4050, L100.0100, L501.9910, L500.4100 #### [facility] [address] [place], [address] MCV (RBC) [Entitic vol] 92.0 fL Normal 80-94 [facility] Comment on above: Performed By: #### L 500.4050, L100.0100, L501.9910, L500.4100 #### [facility] [address] [place], [address] Monocytes/100 WBC (Bld) 8.8 % Normal 0-10 [facility] Comment on above: Performed By: #### L 500.4050, L100.0100, L501.9910, L500.4100 #### [facility] [address] [place], [address] Neutrophils/100 WBC (Bld) 54.7 % Normal 47-70 [facility] Comment on above: Performed By: #### L 500.4050, L100.0100, L501.9910, L500.4100 #### [facility] [address] [place], [address] Nucleated RBC (Bld) [#/Vol] 0 10*3/uL Normal 0-5 [facility] Comment on above: Performed By: #### L 500.4050, L100.0100, L501.9910, L500.4100 #### [facility] [address] [place], [address] Platelet mean volume (Bld) [Entitic vol] 10.0 fL Normal 6.2-12.0 [facility] Comment on above: Performed By: #### L 500.4050, L100.0100, L501.9910, L500.4100 #### [facility] [address] [place], [address] Platelets (Bld) [#/Vol] 229 10*3/uL Normal 150-450 [facility] Comment on above: Performed By: #### L 500.4050, L100.0100, L501.9910, L500.4100 #### [facility] [address] [place], [address] RBC (Bld) [#/Vol] 4.62 10*6/uL Normal 4.6-6.2 [facility] Comment on above: Performed By: #### L 500.4050, L100.0100, L501.9910, L500.4100 #### [facility] [address] [place], [address] RDW SD 41.1 fl Normal 35.1-43.9 [facility] Comment on above: Performed By: #### L 500.4050, L100.0100, L501.9910, L500.4100 #### [facility] [address] [place], [address] WBC (Bld) [#/Vol] 4.7 10*3/uL Normal 4.4-11.0 [facility] Comment on above: Performed By: #### L 500.4050, L100.0100, L501.9910, L500.4100 #### [facility] [address] [place], [address] Comprehensive Metabolic Prof [facility] 01-20-2024 Albumin [Mass/Vol] 3.9 g/dL Normal 3.2-5.0 [facility] Comment on above: Performed By: #### L 500.4050, L100.0100, L501.9910, L500.4100 #### [facility] [address] [place], [address] Albumin/Globulin [Mass ratio] 1.0 {ratio} Normal 0.9-2.4 [facility] Comment on above: Performed By: #### L 500.4050, L100.0100, L501.9910, L500.4100 #### [facility] [address] [place], [address] ALK P 79 U/L Normal 45-117 [facility] Comment on above: Performed By: #### L 500.4050, L100.0100, L501.9910, L500.4100 #### [facility] [address] [place], [address] ALT [Catalytic activity/Vol] 23 U/L Normal 16-61 [facility] Comment on above: Performed By: #### L 500.4050, L100.0100, L501.9910, L500.4100 #### [facility] [address] [place], [address] AST [Catalytic activity/Vol] 19 U/L Normal 15-37 [facility] Comment on above: Performed By: #### L 500.4050, L100.0100, L501.9910, L500.4100 #### [facility] [address] [place], [address] Bilirubin [Mass/Vol] 0.40 mg/dL Normal 0.20-1.00 [facility] Comment on above: Result Comment: For patients on eltrombopag therapy, use of Dimension Deputy TBIL is not recommended. Performed By: #### L 500.4050, L100.0100, L501.9910, L500.4100 #### [facility] [address] [place], [address] BUN/CRE 16.4 RATIO Normal 10-20 [facility] Comment on above: Performed By: #### L 500.4050, L100.0100, L501.9910, L500.4100 #### [facility] [address] [place], [address] CA,Total 9.6 mg/dL Normal 8.5-10.1 [facility] Comment on above: Performed By: #### L 500.4050, L100.0100, L501.9910, L500.4100 #### [facility] [address] [place], [address] Chloride [Moles/Vol] 104 mmol/L Normal 98-107 [facility] Comment on above: Performed By: #### L 500.4050, L100.0100, L501.9910, L500.4100 #### [facility] [address] [place], [address] CO2 [Moles/Vol] 31.0 mmol/L Normal 21.0-32.0 [facility] Comment on above: Performed By: #### L 500.4050, L100.0100, L501.9910, L500.4100 #### [facility] [address] [place], [address] Creatinine [Mass/Vol] 0.79 mg/dL Normal 0.70-1.30 [facility] Comment on above: Result Comment: The validity of the calculated GFR GFRAA in patients over 70 years has not been determined. Clinical correlation is essential. Performed By: #### L 500.4050, L100.0100, L501.9910, L500.4100 #### [facility] [address] [place], [address] EST GFR - AA 123 mL/min Normal >60 [facility] Comment on above: Result Comment: Afri can Wallisian GFR Calc Performed By: #### L 500.4050, L100.0100, L501.9910, L500.4100 #### [facility] [address] [place], [address] GAP 4 Low 5-15 [facility] Comment on above: Performed By: #### L 500.4050, L100.0100, L501.9910, L500.4100 #### [facility] [address] [place], [address] GFR/1.73 sq M.predicted among non-blacks MDRD (S/P/Bld) [Vol rate/Area] 101 mL/min/{1.73_m2} Normal >60 [facility] Comment on above: Result Comment: Non- GFR Calc Performed By: #### L 500.4050, L100.0100, L501.9910, L500.4100 #### [facility] [address] [place], [address] Globulin (S) [Mass/Vol] 3.8 g/dL Normal 2.2-4.2 [facility] Comment on above: Performed By: #### L 500.4050, L100.0100, L501.9910, L500.4100 #### [facility] [address] [place], [address] Glucose [Mass/Vol] 119 mg/dL High 74-106 [facility] Comment on above: Result Comment: Fast ing Glucose result from 100 to 125 mg/dL suggests IMPAIRED HOMEOSTASIS per A.D.A. criteria. Performed By: #### L 500.4050, L100.0100, L501.9910, L500.4100 #### [facility] [address] [place], [address] Potassium [Moles/Vol] 3.9 mmol/L Normal 3.5-5.1 [facility] Comment on above: Performed By: #### L 500.4050, L100.0100, L501.9910, L500.4100 #### [facility] [address] [place], [address] Sodium [Moles/Vol] 139 mmol/L Normal 136-145 [facility] Comment on above: Performed By: #### L 500.4050, L100.0100, L501.9910, L500.4100 #### [facility] [address] [place], [address] T PROT 7.7 g/dL Normal 6.4-8.2 [facility] Comment on above: Performed By: #### L 500.4050, L100.0100, L501.9910, L500.4100 #### [facility] [address] [place], [address] Urea nitrogen [Mass/Vol] 13 mg/dL Normal 7-18 [facility] Comment on above: Performed By: #### L 500.4050, L100.0100, L501.9910, L500.4100 #### [facility] [address] [place], [address] Lipid Profileon 01-20-2024 Cholesterol [Mass/Vol] 115 mg/dL Normal 200 [facility] Comment on above: Result Comment: <200 mg/dL Desirable 200-240 mg/dL Borderline >240 mg/dL High Risk Performed By: #### L 500.4050, L100.0100, L501.9910, L500.4100 #### [facility] [address] [place], [address] Cholesterol in HDL [Mass/Vol] 62 mg/dL Normal [facility] Comment on above: Result Comment: The drugs N-Acetylcysteine and Metamizole may falsely depress this assay. Reference Range HDL <40 mg/dL Low HDL Cholesterol HDL >or= 60 mg/dL High HDL Cholesterol Performed By: #### L 500.4050, L100.0100, L501.9910, L500.4100 #### [facility] [address] [place], [address] Cholesterol in LDL [Mass/Vol] 43 mg/dL Normal 0-130 [facility] Comment on above: Performed By: #### L 500.4050, L100.0100, L501.9910, L500.4100 #### [facility] [address] [place], [address] Cholesterol in VLDL [Mass/Vol] 10 mg/dL Normal 5-40 [facility] Comment on above: Performed By: #### L 500.4050, L100.0100, L501.9910, L500.4100 #### [facility] [address] [place], [address] Triglyceride [Mass/Vol] 48 mg/dL Normal [facility] Comment on above: Result Comment: The drugs N-Acetylcysteine and Metamizole may falsely depress this assay. Serum Triglycerides Reference Interval Normal <150 mg/dL Borderline high 150 - 199 mg/dL High 200 - 499 mg/dL Very High > or = 500 mg/dL Performed By: #### L 500.4050, L100.0100, L501.9910, L500.4100 #### [facility] [address] [place], [address] PSA,Total - Annual Screenon 01-20-2024 PSA,TOT SCREEN 1.42 ng/mL Normal 0.00-4.00 [facility] Comment on above: Result Comment: This test was performed using the TPSA assay method for the [facility] chemistry system. Values obtained with different assay methods cannot be used interchangably. When changing PSA assays in the course of monitoring a patient, additional sequential testing should be carried out to confirm baseline values. Performed By: #### L 500.4050, L100.0100, L501.9910, L500.4100 #### [facility] [address] [place], [address] H AND Josué 09-24-2023 H AND P [facility] [address] [facility] [address] [facility] [id number] Ary Forde is a 73 y.o. male being seen on 08/14/23 for Chief Complaint Patient presents with Follow-up Long segment Viveros's esophagus, RFA HPI: The patient presents today for follow-up after his most recent RFA. He has a known history of long segment Viveros's and has previously undergone fundoplication. His last RFA was on 07/09/2023. At that time his [place] classification was C0-M5. There was mainly spotty disease noted. He underwent treatment with RFA. Today he denies meaningful heartburn, regurgitation, or esophageal dysphagia. He reports significant decrease in the overall amount of phlegm in the back of his throat. 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 2017 [place] GERD (gastroesophageal reflux disease) Hiatal hernia 07/31/2022 [...] day bef (more content not included)... Normal [facility] Absolute lymphocyte countOrd ered By: Emanuel Aguilar on 01-18-2023 Lymphocytes Auto (Unsp spec) [#/Vol] 1.63 10*3/uL 0.83-4.51 [facility] Basophil percentageOrdered B y: Emanuel Aguilar on 01-18-2023 Basophils/100 WBC (Bld) 0.8 % 0-1 [facility] Bilirubin [Mass/Vol] 0.50 mg/dL 0.20-1.00 [facility] Comment on above: For patients on eltr ombopag therapy, use of Dimension Deputy TBIL is not recommended. Chloride [Moles/Vol] 105 mmol/L 98-107 [facility] Cholesterol [Mass/Vol] 106 mg/dL <200 [facility] Comment on above: <200 mg/dL Desirable 200-240 mg/dL Borderline >240 mg/dL High Risk Eosinophils/100 WBC (Bld) 2.8 % 0-5 [facility] Glucose [Mass/Vol] 98 mg/dL 74-106 [facility] Neutrophils (Bld) [#/Vol] 5.3 10*3/uL 2.0-7.7 [facility] Neutrophils/100 WBC (Bld) 68.4 % 47-70 [facility] Potassium [Moles/Vol] 4.8 mmol/L 3.5-5.1 [facility] Protein [Mass/Vol] 7.8 g/dL 6.4-8.2 [facility] Sodium [Moles/Vol] 138 mmol/L 136-145 [facility] Triglyceride [Mass/Vol] 54 mg/dL <199 [facility] Comment on above: The drugs N-Acetylcy steine and Metamizole may falsely depress this assay.Serum Triglycerides Reference Interval Normal <150 mg/dL Borderline high 150 - 199 mg/dL High 200 - 499 mg/dL Very High > or = 500 mg/dL WBC (Bld) [#/Vol] 7.8 10*3/uL 4.4-11.0 [facility] Blood erythrocytes count (nu mber/volume)Ordered By: Emanuel Aguilar on 01-18-2023 RBC (Bld) [#/Vol] 4.51 10*6/uL 4.6-6.2 [facility] Blood hemoglobin measurement (mass/volume)Ordered By: Emanuel Aguilar on 01-18-2023 Hemoglobin (Bld) [Mass/Vol] 13.3 g/dL 13.0-16.5 [facility] Blood lymphocytes/100 leukoc ytesOrdered By: Emanuel Aguilar on 01-18-2023 Lymphocytes/100 WBC (Bld) 21.0 % 19-41 [facility] Blood monocytes/100 leukocyt esOrdered By: Emanuel Aguilar on 01-18-2023 Monocytes/100 WBC (Bld) 6.7 % 0-10 [facility] Blood platelet mean volumeOr dered By: Emanuel Aguilar on 01-18-2023 Platelet mean volume (Bld) [Entitic vol] 10.5 fL 6.2-12.0 [facility] Determination of erythrocyte mean corpuscular volume (MCV)Ordered By: Emanuel Aguilar on 01-18-2023 MCV (RBC) [Entitic vol] 91.1 fL 80-94 [facility] Hematocrit Auto (Bld) [Volum e fraction]Ordered By: Emanuel Aguilar on 01-18-2023 Hematocrit (Bld) [Volume fraction] 41.1 % 40-54 [facility] - Chemistry and C hemistry - challengeOrdered By: Emanuel Aguilar on 01-18-2023 ALP [Catalytic activity/Vol] 78 U/L 45-117 [facility] ALT [Catalytic activity/Vol] 25 U/L 16-61 [facility] CO2 [Moles/Vol] 29.0 mmol/L 21.0-32.0 [facility] Globulin (S) [Mass/Vol] 4.0 g/dL 2.2-4.2 [facility] Urea nitrogen/Creatinine [Mass ratio] 13.4 mg/mg 10-20 [facility] - Hematology and Cell countsOrdered By: Emanuel Aguilar on 01-18-2023 Erythrocyte distribution width (RBC) [Entitic vol] 41.7 fL 35.1-43.9 [facility] Erythrocyte distribution width (RBC) [Ratio] 12.6 % 11.6-14.6 [facility] Immature granulocytes/100 WBC (Bld) 0.300 % 0.0-0.9 [facility] Comment on above: IG% - Immature Granu locytes (promyelocytes, myelocytes and metamyelocytes) > 1% indicates that a LEFT SHIFT is Present. MCH (RBC) [Entitic mass] 29.5 pg 27.0-32.0 [facility] Nucleated RBC/100 WBC (Bld) [Ratio] 0 % 0-5 [facility] MCHC Auto (RBC) [Mass/Vol]Or dered By: Emanuel Aguilar on 01-18-2023 MCHC (RBC) [Mass/Vol] 32.4 g/dL 32-36 [facility] No Panel InformationOrdered By: Emanuel Aguilar on 01-18-2023 Estimated GFR (MDRD) Amer 132 mL/min >60 [facility] Comment on above: GFR Calc Estimated GFR (MDRD) Non-Af Amer 109 mL/min >60 [facility] Comment on above: Non- GFR Calc Prostate Specific Antigen Screen 1.73 ng/mL 0.00-4.00 [facility] Comment on above: This test was perfor med using the TPSA assay method for the[facility]. Values obtained with differentassay methods cannot be used interchangably.When changing PSA assays in the course of monitoring apatient, additional sequential testing should be carriedout to confirm baseline values. Platelets bldOrdered By: Azalea Aguilar on 01-18-2023 Platelets (Bld) [#/Vol] 236 10*3/uL 150-450 [facility] Serum or plasma albumin caesar urement (mass/volume)Ordered By: Emanuel Aguilar on 01-18-2023 Albumin [Mass/Vol] 3.8 g/dL 3.2-5.0 [facility] Serum or plasma albumin/glob ulin mass ratioOrdered By: Emanuel Aguilar on 01-18-2023 Albumin/Globulin [Mass ratio] 1.0 {ratio} 0.9-2.4 [facility] Serum or plasma calcium caesar urement (mass/volume)Ordered By: Emanuel Aguilar on 01-18-2023 Calcium [Mass/Vol] 8.9 mg/dL 8.5-10.1 [facility] Serum or plasma cholesterol in HDL measurement (mass/volume)Ordered By: Emanuel Aguilar on 01-18-2023 Cholesterol in HDL [Mass/Vol] 62 mg/dL >40 [facility] Comment on above: The drugs N-Acetylcy steine and Metamizole may falsely depress this assay. Reference Range HDL <40 mg/dL Low HDL Cholesterol HDL >or= 60 mg/dL High HDL Cholesterol Serum or plasma cholesterol in VLDL measurement (mass/volume)Ordered By: Emanuel Aguilar on 01-18-2023 Cholesterol in VLDL [Mass/Vol] 11 mg/dL 5-40 [facility] Serum or plasma creatinine m easurement (mass/volume)Ordered By: Emanuel Aguilar on 01-18-2023 Creatinine [Mass/Vol] 0.75 mg/dL 0.70-1.30 [facility] Comment on above: The validity of the calculated GFR & GFRAA in patients over 70 years has not been determined. Clinical correlation is essential. Serum or plasma low density lipoprotein (LDL) cholesterol measurement (mass/volume)Ordered By: Emanuel Aguilar on 01-18-2023 Cholesterol in LDL [Mass/Vol] 33 mg/dL 0-130 [facility] Serum or plasma urea nitroge n measurement (mass/volume)Ordered By: Emanuel Aguilar on 01-18-2023 Urea nitrogen [Mass/Vol] 10 mg/dL 7-18 [facility] Thin prep Papanicolaou smear with manual screeningOrdered By: Emanuel Aguilar on 01-18-2023 Thin prep Papanicolaou smear with manual screening 20 U/L 15-37 [facility] Thin prep Papanicolaou smear with manual screening 4 5-15 [facility] XR COMPARISON IMPORTon 12-29 This order has been auto-finalized and does not contain a result. [facility] GI ESOPHAGRAMon 12-25-2019 GI ESOPHAGRAM Patient Name: ARY FORDE STUDY: GI ESOPHAGRAM; ; 12/25/2019 9:13 am INDICATION: upper gi discomfort. COMPARISON: None. ACCESSION NUMBER(S): [id number] ORDERING CLINICIAN: ARABELLA ODEN TECHNIQUE: The patient [...] esophagus Electronically signed by: JOAQUIN HANSON MD [facility] Surgical Pathology Depar tmenton 12-21-2019 [facility] Surgical Pathology Department Name ARY FORDE Pathologist: DANYELL STEPHENS MD Date of Procedure: 12/21/2019 Date Received: 12/22/2019 Date Reported 12/23/2019 Submitting Physician: ARABELLA ODEN DO Location: [facility] Endoscopy Copy To/Referring/Attending: DAGO MCNAMARA MD Other [...] this case. Clinical History: Physician Contact Number: [id number] Fixative (A): Formalin Clinical Diagnosis History [facility]RETT[facility] Specimens Submitted As: A: DISTAL ESOPHAGUS Gross Description: Received in formalin, labeled with the patient's name and hospital number and distal esophagus BX, are multiple fragments of worley, soft tissue aggregating to 1.5 x 0.2 x 0.2 cm. The specimen is submitted in toto in one cassette. SBS ssn/12/22/2019 [facility] Department of Pathology [address] [place] [address] Normal [facility] Comment on above: Performed By: #### U HCS #### [facility] Surgical Pathology Department [address] [place], [place] [id number] CORONAVIRUS 2019, SCREEN ASY MPTOMATICon 12-20-2019 CORONAVIRUS 2019,PCR NOT DETECTED Normal Not Detected [facility] Comment on above: Result Comment: . This [...] patient management decisions. Fact sheet for providers: https://www.fda.gov/media/794020/download Fact sheet for patients: https://www.fda.gov/media/747325/download This test has received FDA Emergency Use Authorization (EUA) and has been verified by [facility] ([facility]). This test is only authorized for the duration of time that circumstances exist to justify the authorization of the emergency use of in vitro diagnostic tests for the detection of SARS-CoV-2 virus and/or diagnosis of COVID-19 infection under section 564(b)(1) of the Act, 21 U.S.C. 360bbb-3(b)(1), unless the authorization is terminated or revoked sooner. [facility] is certified under CLIA-88 as qualified to perform high complexity testing. Testing is performed in the [facility] laboratories located at [address] [place] [address]. Performed By: #### C OVSC #### [place] [address] CORONAVIRUS 2018, SCREEN ASY MPTOMATICon 12-19-2019 Lab Specimen Source Nasal, Nasopharyngeal Normal [facility] Comment on above: Performed By: #### C OVSC #### [place] [address] CORONAVIRUS 2019, SCREEN ASY MPTOMATICon 12-10-2019 EMPLOYED IN HEALTHCARE? Unknown Normal [facility] Comment on above: Performed By: #### C OVSC #### [facility] [address] [place] [address] FIRST COVID NASAL SWAB TEST? Unknown Normal [facility] Comment on above: Performed By: #### C OVSC #### [facility] [address] [place] [address] HOSPITALIZED (OR PLANNED TO BE ADMITTED)? Unknown Normal [facility] Comment on above: Performed By: #### C OVSC #### [facility] [address] [place] [address] ICU? Unknown Normal [facility] Comment on above: Performed By: #### C OVSC #### [facility] [address] [place] [address] REQUIRED FOR PROCEDURE/SURGERY? Unknown Normal [facility] Comment on above: Performed By: #### C OVSC #### [facility] [address] [place] [address] RESIDENT IN CONGREGATE CARE SETTING? Unknown Normal [facility] Comment on above: Performed By: #### C OVSC #### [facility] [address] [place] [address] SYMPTOMATIC DEFINED BY CDC? Unknown Normal [facility] Comment on above: Performed By: #### C OVSC #### [facility] [address] EMPLOYEE? Unknown Normal [facility] Comment on above: Performed By: #### C OVSC #### [facility] [address] [place] [address] Established Visit (Gastroent erology)on 03-18-2019 Established Visit (Gastroenterology) Diagnoses/Problems Assessed Viveros's esophagus (530.85) (K22.70) Orders Viveros's esophagus Start: Pantoprazole Sodium 40 MG Oral Tablet Delayed Release; Take 1 tablet daily Rx By: Arabella Oden; Dispense: 90 Days ; #:90 Tablet; Refill: 3;For: Viveros's esophagus; RAJ = N; Sent To: [facility] SocHx: Never a smoker Tobacco Use Screening; Status:Complete; Done: 18Mar2019 Perform:Not Applicable;Ordered; For:SocHx: Never a smoker; Ordered By:Vivi Henry; Chief Complaint Yearly follow up for Viveros's Esophagus. Last EGD was Nov 25, 2017. Currently taking Pantoprazole 40 mg daily with no complaints. History of Present Illness There is seen today in routine follow-up for reflux disease and Viveros's esophagus. Last endoscopy performed November 2017. Long [...] MG Oral Tablet Vitals Vital Signs Recorded: 18Mar2019 09:59AM [id number] [id number] Height5 ft 11 in Uztmkg065 lb BMI Flnuykclsj44.73 BSA Calculated2.14 Physical Exam Constitutional General appearance: In no acute distress . Eyes Anicteric Sclerae . Pulmonary Auscultation of lungs: Clear. Cardiovascular Auscultation of heart: RRR without murmur. Examination of extremities for edema: Normal. Abdomen Soft, non-tender. Bowel sounds normal. No hepatomegaly or splenomegaly. Signatures Electronically signed by : Arabella Oden DO; Mar 18 2019 12:44PM EST (Author) Normal [facility] Vital Signs Date Time Vital Sign Value Performing Clinician Facility 09-22-2024 07:52-0400 Body height 180.[address] Emanuel Aguilar DO Work Phone: [facility] 09-22-2024 07:52-0400 Body mass index (BMI) [Ratio] 24.3 kg/m2 Dr. Emanuel Aguilar DO Work Phone: [facility] 09-22-2024 07:52-0400 Body temperature 97 [degF] Dr. Emanuel Aguilar DO Work Phone: [facility] 09-22-2024 07:52-0400 Body weight 78.[address] Emanuel Aguilar DO Work Phone: [facility] 09-22-2024 07:52-0400 Diastolic blood pressure 62 mm[Hg] Dr. Emanuel Aguilar DO Work Phone: [facility] 09-22-2024 07:52-0400 Heart rate 75 /min Dr. Emanuel Aguilar DO Work Phone: [facility] 09-22-2024 07:52-0400 Respiratory rate 16 /min Dr. Emanuel Aguilar DO Work Phone: [facility] 09-22-2024 07:52-0400 SaO2% (BldA) [Mass fraction] 97 % Dr. Emanuel Aguilar DO Work Phone: [facility] 09-22-2024 07:52-0400 Systolic blood pressure 105 mm[Hg] Dr. Emanuel Aguilar DO Work Phone: [facility] 09-19-2024 15:57-0400 Body temperature 99.8 [degF] Dr. Emanuel Aguilar DO Work Phone: [facility] 09-19-2024 15:57-0400 Diastolic blood pressure 65 mm[Hg] Dr. Emanuel Aguilar DO Work Phone: [facility] 09-19-2024 15:57-0400 Heart rate 86 /min Dr. Emanuel Aguilar DO Work Phone: [facility] 09-19-2024 15:57-0400 Respiratory rate 20 /min Dr. Emanuel Aguilar DO Work Phone: [facility] 09-19-2024 15:57-0400 SaO2% (BldA) [Mass fraction] 96 % Dr. Emanuel Aguilar DO Work Phone: [facility] 09-19-2024 15:57-0400 Systolic blood pressure 112 mm[Hg] Dr. Emanuel Aguilar DO Work Phone: [facility] 09-19-2024 12:56-0400 Inhaled oxygen flow rate 2 L/min Dr. Emanuel Aguilar DO Work Phone: [facility] 09-19-2024 12:27-0400 Body height 180.[address] Emanuel Aguilar DO Work Phone: [facility] 09-19-2024 12:27-0400 Body mass index (BMI) [Ratio] 24.4 kg/m2 Dr. Emanuel Aguilar DO Work Phone: [facility] 09-19-2024 12:27-0400 Body weight 79.[address] Emanuel Aguilar DO Work Phone: [facility] 07-22-2024 08:29-0400 Body height 182.9 cm Abbe Wood MD Work Phone: [facility] 07-22-2024 08:29-0400 Body mass index (BMI) [Ratio] 23.45 kg/m2 Abbe Wood MD Work Phone: [facility] 07-22-2024 08:29-0400 Body weight 78.43 kg Abbe Wood MD Work Phone: [facility] 07-22-2024 08:29-0400 Diastolic blood pressure 84 mm[Hg] Abbe Wood MD Work Phone: [facility] 07-22-2024 08:29-0400 Heart rate 66 /min Abbe Wood MD Work Phone: [facility] 07-22-2024 08:29-0400 SaO2% (BldA) [Mass fraction] 98 % Abbe Wood MD Work Phone: [facility] 07-22-2024 08:29-0400 Systolic blood pressure 162 mm[Hg] Abbe Wood MD Work Phone: [facility] 04-29-2024 10:46-0400 Body height 180.3 cm Abbe Wood MD Work Phone: [facility] 04-29-2024 10:46-0400 Body mass index (BMI) [Ratio] 24.16 kg/m2 Abbe Wood MD Work Phone: [facility] 04-29-2024 10:46-0400 Body weight 78.56 kg Abbe Wood MD Work Phone: [facility] 04-29-2024 10:46-0400 Diastolic blood pressure 84 mm[Hg] Abbe Wood MD Work Phone: [facility] 04-29-2024 10:46-0400 Heart rate 56 /min Abbe Wood MD Work Phone: [facility] 04-29-2024 10:46-0400 SaO2% (BldA) [Mass fraction] 96 % Abbe Wood MD Work Phone: [facility] 04-29-2024 10:46-0400 Systolic blood pressure 152 mm[Hg] Abbe Wood MD Work Phone: [facility] 01-29-2024 07:52-0500 Body mass index (BMI) [Ratio] 24.13 kg/m2 Abbe Wood MD Work Phone: [facility] 01-29-2024 07:52-0500 Body weight 78.47 kg Abbe Wood MD Work Phone: [facility] 01-29-2024 07:52-0500 Diastolic blood pressure 90 mm[Hg] Abbe Wood MD Work Phone: [facility] 01-29-2024 07:52-0500 Heart rate 99 /min Abbe Wood MD Work Phone: [facility] 01-29-2024 07:52-0500 Systolic blood pressure 135 mm[Hg] Abbe Wood MD Work Phone: [facility] 08-14-2023 08:09-0400 Body height 180.3 cm Abbe Wood MD Work Phone: [facility] 08-14-2023 08:09-0400 Body mass index (BMI) [Ratio] 23.51 kg/m2 Abbe Wood MD Work Phone: [facility] 08-14-2023 08:09-0400 Body weight 76.48 kg Abbe Wood MD Work Phone: [facility] 08-14-2023 08:09-0400 Diastolic blood pressure 86 mm[Hg] Abbe Wood MD Work Phone: [facility] 08-14-2023 08:09-0400 Heart rate 62 /min Abbe Wood MD Work Phone: [facility] 08-14-2023 08:09-0400 SaO2% (BldA) [Mass fraction] 97 % Abbe Wood MD Work Phone: [facility] 08-14-2023 08:09-0400 Systolic blood pressure 163 mm[Hg] Abbe Wood MD Work Phone: [facility] 05-22-2023 08:16-0400 Body height 182.9 cm Abbe Wood MD Work Phone: [facility] 05-22-2023 08:16-0400 Body mass index (BMI) [Ratio] 22.53 kg/m2 Abbe Wood MD Work Phone: [facility] 05-22-2023 08:16-0400 Body weight 75.34 kg Abbe Wood MD Work Phone: [facility] 05-22-2023 08:16-0400 Diastolic blood pressure 86 mm[Hg] Abbe Wood MD Work Phone: [facility] 05-22-2023 08:16-0400 Heart rate 64 /min Abbe Wood MD Work Phone: [facility] 05-22-2023 08:16-0400 SaO2% (BldA) [Mass fraction] 97 % Abbe Wood MD Work Phone: [facility] 05-22-2023 08:16-0400 Systolic blood pressure 162 mm[Hg] Abbe Wood MD Work Phone: [facility] 12-05-2022 07:55-0400 Body mass index (BMI) [Ratio] 23.06 kg/m2 Abbe Wood MD Work Phone: [facility] 12-05-2022 07:55-0400 Body weight 77.11 kg Abbe Wood MD Work Phone: [facility] 12-05-2022 07:55-0400 Diastolic blood pressure 83 mm[Hg] Abbe Wood MD Work Phone: [facility] 12-05-2022 07:55-0400 Heart rate 64 /min Abbe Wood MD Work Phone: [facility] 12-05-2022 07:55-0400 Systolic blood pressure 159 mm[Hg] Abbe Wood MD Work Phone: [facility] 09-13-2022 08:16-0400 Body height 182.9 cm Abbe Wood MD Work Phone: [facility] 09-13-2022 08:16-0400 Body mass index (BMI) [Ratio] 23.03 kg/m2 Abbe Wood MD Work Phone: [facility] 09-13-2022 08:16-0400 Body weight 77.02 kg Abbe Wood MD Work Phone: [facility] 09-13-2022 08:16-0400 Diastolic blood pressure 89 mm[Hg] Abbe Wood MD Work Phone: [facility] 09-13-2022 08:16-0400 Heart rate 54 /min Abbe Wood MD Work Phone: [facility] 09-13-2022 08:16-0400 SaO2% (BldA) [Mass fraction] 96 % Abbe Wood MD Work Phone: [facility] 09-13-2022 08:16-0400 Systolic blood pressure 171 mm[Hg] Abbe Wood MD Work Phone: [facility] 02-07-2022 08:10-0500 Body height 182.9 cm Abbe Wood MD Work Phone: [facility] 02-07-2022 08:10-0500 Body mass index (BMI) [Ratio] 25.36 kg/m2 Abbe Wood MD Work Phone: [facility] 02-07-2022 08:10-0500 Body weight 84.82 kg Abbe Wood MD Work Phone: [facility] 02-07-2022 08:10-0500 Diastolic blood pressure 85 mm[Hg] Abbe Wood MD Work Phone: [facility] 02-07-2022 08:10-0500 Heart rate 69 /min Abbe Wood MD Work Phone: [facility] 02-07-2022 08:10-0500 SaO2% (BldA) [Mass fraction] 94 % Abbe Wood MD Work Phone: [facility] 02-07-2022 08:10-0500 Systolic blood pressure 154 mm[Hg] Abbe Wood MD Work Phone: [facility] 11-23-2021 07:43-0400 Body mass index (BMI) [Ratio] 24.68 kg/m2 Abbe Wood MD Work Phone: [facility] 11-23-2021 07:43-0400 Body weight 82.56 kg Abbe Wood MD Work Phone: [facility] 11-23-2021 07:43-0400 Diastolic blood pressure 89 mm[Hg] Abbe Wood MD Work Phone: [facility] 11-23-2021 07:43-0400 Heart rate 66 /min Abbe oWod MD Work Phone: [facility] 11-23-2021 07:43-0400 Systolic blood pressure 157 mm[Hg] Abbe Wood MD Work Phone: [facility] 10-24-2021 08:56-0400 Body height 182.9 cm Alvin Ochoa BANK ADVISOR Work Phone: [facility] 10-24-2021 08:56-0400 Body mass index (BMI) [Ratio] 23.72 kg/m2 Alvin Lafon BANK ADVISOR Work Phone: [facility] 10-24-2021 08:56-0400 Body weight 79.33 kg Alvin Don BANK ADVISOR Work Phone: [facility] 10-24-2021 08:56-0400 Diastolic blood pressure 84 mm[Hg] Alvin Maurisioon BANK ADVISOR Work Phone: [facility] 10-24-2021 08:56-0400 Heart rate 61 /min Alvin Ochoa BANK ADVISOR Work Phone: [facility] 10-24-2021 08:56-0400 SaO2% (BldA) [Mass fraction] 98 % Alvin Ochoa BANK ADVISOR Work Phone: [facility] 10-24-2021 08:56-0400 Systolic blood pressure 144 mm[Hg] Alvin Ochoa BANK ADVISOR Work Phone: [facility] 08-16-2021 07:49-0400 Body mass index (BMI) [Ratio] 25.36 kg/m2 Abbe Wood MD Work Phone: [facility] 08-16-2021 07:49-0400 Body weight 84.82 kg Abbe Wood MD Work Phone: [facility] 08-16-2021 07:49-0400 Diastolic blood pressure 82 mm[Hg] Abbe Wood MD Work Phone: [facility] 08-16-2021 07:49-0400 Heart rate 72 /min Abeb Wood MD Work Phone: [facility] 08-16-2021 07:49-0400 Systolic blood pressure 169 mm[Hg] Abbe Wood MD Work Phone: [facility] 06-28-2021 11:31-0400 Diastolic blood pressure 76 mm[Hg] Dr. Dago Mcnamara Work Phone: [facility] Work Phone: 06-28-2021 11:31-0400 Heart rate 74 /min Dr. Dago Mcnamara Work Phone: [facility] Work Phone: 06-28-2021 11:31-0400 Systolic blood pressure 128 mm[Hg] Dr. Dago Mcnamara Work Phone: [facility] Work Phone: 06-28-2021 11:18-0400 Body height 182.[address] Dago Mcnamara Work Phone: [facility] Work Phone: 06-28-2021 11:18-0400 Body mass index (BMI) [Ratio] 25.2 kg/m2 Dr. Dago Mcnamara Work Phone: [facility] Work Phone: 06-28-2021 11:18-0400 Body weight 84.[address] Dago Mcnamara Work Phone: [facility] Work Phone: 06-28-2021 11:18-0400 Respiratory rate 16 /min Dr. Dago Mcnamara Work Phone: [facility] Work Phone: 06-28-2021 11:18-0400 SaO2% (BldA) [Mass fraction] 96 % Dr. Dago Mcnamara Work Phone: [facility] Work Phone: 05-17-2021 08:47-0400 Body height 182.9 cm Abbe Wood MD Work Phone: [facility] 05-17-2021 08:47-0400 Body mass index (BMI) [Ratio] 25.97 kg/m2 Abbe Wood MD Work Phone: [facility] 05-17-2021 08:47-0400 Body weight 86.86 kg Abbe Wood MD Work Phone: [facility] 05-17-2021 08:47-0400 Diastolic blood pressure 85 mm[Hg] Abbe Wood MD Work Phone: [facility] 05-17-2021 08:47-0400 Heart rate 76 /min Abbe Wood MD Work Phone: [facility] 05-17-2021 08:47-0400 SaO2% (BldA) [Mass fraction] 95 % Abbe Wood MD Work Phone: [facility] 05-17-2021 08:47-0400 Systolic blood pressure 162 mm[Hg] Abbe Wood MD Work Phone: [facility] 02-08-2021 08:05-0500 Body height 182.9 cm Abbe oWod MD Work Phone: [facility] 02-08-2021 08:05-0500 Body mass index (BMI) [Ratio] 26.22 kg/m2 Abbe Wood MD Work Phone: [facility] 02-08-2021 08:05-0500 Body weight 87.68 kg Abbe Wood MD Work Phone: [facility] 02-08-2021 08:05-0500 Diastolic blood pressure 92 mm[Hg] Abbe Wood MD Work Phone: [facility] 02-08-2021 08:05-0500 Heart rate 94 /min Abbe Wood MD Work Phone: [facility] 02-08-2021 08:05-0500 SaO2% (BldA) [Mass fraction] 98 % Abbe Wood MD Work Phone: [facility] 02-08-2021 08:05-0500 Systolic blood pressure 149 mm[Hg] Abbe Wood MD Work Phone: [facility] 10-21-2020 07:57-0400 Body height 182.9 cm Abbe Wood MD Work Phone: [facility] 10-21-2020 07:57-0400 Body mass index (BMI) [Ratio] 25.01 kg/m2 Abbe Wood MD Work Phone: [facility] 10-21-2020 07:57-0400 Body weight 83.64 kg Abbe Wood MD Work Phone: [facility] 10-21-2020 07:57-0400 Diastolic blood pressure 78 mm[Hg] Abbe Wood MD Work Phone: [facility] 10-21-2020 07:57-0400 Heart rate 63 /min Abbe Wood MD Work Phone: [facility] 10-21-2020 07:57-0400 SaO2% (BldA) [Mass fraction] 95 % Abbe Wood MD Work Phone: [facility] 10-21-2020 07:57-0400 Systolic blood pressure 142 mm[Hg] Abbe Wood MD Work Phone: [facility] 04-20-2020 08:32-0500 BMI (Body Mass Index) 27.1 kg/m2 Abbe Wood [facility] 04-20-2020 08:32-0500 Body weight 90.63 kg Abbe Wood [facility] 04-20-2020 08:32-0500 BP Diastolic 86 mm[Hg] Abbe Wood [facility] 04-20-2020 08:32-0500 BP Systolic 139 mm[Hg] Abbe Wood [facility] 04-20-2020 08:32-0500 Height 182.9 cm Abbe Wood [facility] 04-20-2020 08:32-0500 Pulse (Heart Rate) 80 /min Abbe Wood [facility] 04-20-2020 08:32-0500 Pulse Oximetry 94 % Abbe Wood [facility] 04-05-2020 11:03-0500 Body Temperature 97.81 [degF] Abbe Wood [facility] 04-05-2020 11:03-0500 BP Diastolic 75 mm[Hg] [facility] 04-05-2020 11:03-0500 BP Systolic 132 mm[Hg] [facility] 04-05-2020 11:03-0500 Pulse (Heart Rate) 74 /min [facility] 04-05-2020 11:03-0500 Pulse Oximetry 94 % [facility] 04-05-2020 11:03-0500 Respiratory Rate 16 /min [facility] 04-04-2020 18:21-0500 Height 182.9 cm [facility] 04-04-2020 08:49-0500 BMI (Body Mass Index) 28.14 kg/m2 [facility] 04-04-2020 08:49-0500 Body weight 94.1 kg [facility] 01-05-2020 09:30-0500 BMI (Body Mass Index) 28.21 kg/m2 [facility] 01-05-2020 09:30-0500 Body weight 94.35 kg [facility] 01-05-2020 09:30-0500 BP Diastolic 88 mm[Hg] [facility] 01-05-2020 09:30-0500 BP Systolic 149 mm[Hg] [facility] 01-05-2020 09:30-0500 Height 182.9 cm [facility] 01-05-2020 09:30-0500 Pulse (Heart Rate) 77 /min [facility] 01-05-2020 09:30-0500 Pulse Oximetry 96 % [facility] 01-05-2020 09:30-0500 Respiratory Rate 15 /min [facility] Encounters Encounter Date Encounter Type Care Provider Facility Start: 09-28-2024 ambulatory Adriana Lipscomb NP Fac ility:[facility] Start: 09-26-2024 Encounter for preprocedural laboratory examination Adriana Lipscomb NP [facility] Start: 09-22-2024 End: 09-22-2024 Patient encounter procedure Adriana Lipscomb [employer] Work Phone: Start: 09-22-2024 End: 09-22-[address] Emanuel Aguilar DO Work Phone: [facility] Start: 09-19-2024 End: 09-19-2024 Emergency department patient visit Dr. Emanuel Aguilar DO Work Phone: -Emergency Department Work Phone: Start: 07-22-2024 End: 07-22-2024 Office outpatient visit 25 minutes Abbe Wood MD [facility] Comment on above: Viveros's esophagus with dysplasia (Primary Dx); Long-segment Viveros's esophagus; Status post laparoscopic Santos fundoplication Start: 07-22-2024 End: 07-22-2024 ambulatory [facility] Start: 06-16-2024 End: 06-16-[address] [facility] Start: 04-29-2024 End: 04-29-2024 Office outpatient visit 25 minutes Abbe Wood MD [facility] Comment on above: Long-segment Viveros 's esophagus (Primary Dx); Status post laparoscopic Santos fundoplication; Viveros's esophagus with dysplasia Start: 04-29-2024 End: 04-29-[address] [facility] Start: 04-21-2024 End: 04-21-2024 ambulatory [facility] Facility:[facility] Start: 04-14-2024 End: 04-14-2024 ambulatory [facility] Start: 01-29-2024 End: 01-29-2024 Office outpatient visit 25 minutes Abbe Wood MD Work Phone: [facility] Comment on above: Long-segment Viveros 's esophagus (Primary Dx); Status post laparoscopic Santos fundoplication; Viveros's esophagus with dysplasia Start: 01-29-2024 End: 01-29-[facility] Start: 01-20-2024 End: 01-20-2024 ambulatory [facility] Facility:[facility] Start: 01-13-2024 End: 01-13-2024 Orders Only Alvin Ochoa CNP Work Phone: [facility] Start: 09-24-2023 End: 09-24-2023 ambulatory ABBE WOOD [facility] Start: 08-14-2023 End: 08-14-2023 Office outpatient visit 25 minutes Abbe Wood MD Work Phone: [facility] Comment on above: Long-segment Viveros 's esophagus (Primary Dx); Status post laparoscopic Santos fundoplication; Viveros's esophagus with dysplasia Start: 08-14-2023 End: 08-14-2023 ambulatory ADGO BRICENO [facility] Start: 05-22-2023 End: 05-22-2023 Office outpatient visit 25 minutes Abbe Wood MD Work Phone: [facility] Comment on above: Long-segment Viveros 's esophagus (Primary Dx); Status post laparoscopic Santos fundoplication; Viveros's esophagus with dysplasia Start: 02-06-2023 Admission to [facility] Alvin Ochoa BANK ADVISOR Work Phone: [facility] Comment on above: Long-segment Viveros 's esophagus (Primary Dx) Start: 01-18-2023 End: 01-18-2023 ambulatory [facility] Work Phone: Start: 01-18-2023 End: 01-18-2023 Patient encounter procedure [facility] Katey Gibbons [facility] Start: 12-05-2022 End: 12-05-2022 Office outpatient visit 25 minutes Abbe Wood MD [facility] Comment on above: Long-segment Viveros 's esophagus (Primary Dx); Status post laparoscopic Santos fundoplication Start: 11-19-2022 Orders Only Alvin Mojica BANK ADVISOR Work Phone: [facility] Start: 09-13-2022 End: 09-13-2022 Office outpatient visit 25 minutes Abbe Wood MD Work Phone: [facility] Comment on above: Viveros's esophagus with dysplasia (Primary Dx); Status post laparoscopic Santos fundoplication Start: 08-30-2022 Refill Alvin Mojica BANK ADVISOR Work Phone: [facility] Start: 07-31-2022 Orders Only Abbe cabello MD Work Phone: [facility] Comment on above: Viveros's esophagus with dysplasia (Primary Dx) Start: 06-20-2022 Orders Only Alvin Alcarazpollo Mojica BANK ADVISOR Work Phone: [facility] Comment on above: Viveros's esophagus with dysplasia (Primary Dx); Status post laparoscopic Santos fundoplication Start: 02-07-2022 End: 02-07-2022 Office outpatient visit 25 minutes Abbe Wood MD Work Phone: [facility] Comment on above: Viveros's esophagus with dysplasia (Primary Dx); Status post laparoscopic Santos fundoplication Start: 11-23-2021 End: 11-23-2021 Postop follow up visit related to original px Abbe Wood MD Work Phone: [facility] Comment on above: Status post laparosc opic Santos fundoplication (Primary Dx); Viveros's esophagus with dysplasia Start: 10-24-2021 Admission to [facility] Alvin Ochoa BANK ADVISOR Work Phone: [facility] Comment on above: Viveros's esophagus with dysplasia (Primary Dx) Start: 10-24-2021 End: 10-24-2021 Postop follow up visit related to original px Alvin Ochoa BANK ADVISOR Work Phone: [facility] Comment on above: Encounter for surgic al aftercare following surgery of digestive system (Primary Dx) Start: 10-05-2021 Preprocedural examin ation done Alvin Ochoa BANK ADVISOR Work Phone: [facility] Work Phone: Start: 08-16-2021 End: 08-16-2021 Office outpatient visit 25 minutes Abbe Wood MD Work Phone: [facility] Comment on above: Viveros's esophagus with dysplasia (Primary Dx); Status post laparoscopic Santos fundoplication; Slipped Santos fundoplication Start: 07-18-2021 Documentation procedure Mayuri glass RN [facility] Start: 07-11-2021 Admission to [facility] Alvin Alice Ochoa BANK ADVISOR Work Phone: [facility] Comment on above: Viveros's esophagus with dysplasia (Primary Dx) Start: 06-30-2021 Non-patient / Non-visit Dr. Gomez Work Phone: [facility] Start: 06-30-2021 End: 06-30-[address] Dago Mcnamara Work Phone: [facility] Start: 06-28-2021 End: 06-28-[address] [facility] Start: 06-07-2021 End: 06-07-2021 Patient encounter procedure [facility] Start: 05-17-2021 End: 05-17-2021 Office outpatient visit 25 minutes Abbe Wood MD Work Phone: [facility] Comment on above: Viveros's esophagus with dysplasia (Primary Dx); Status post laparoscopic Santos fundoplication; Slipped Santos fundoplication; Hiatal hernia Start: 02-08-2021 End: 02-08-2021 Office outpatient visit 15 minutes Abbe Wood MD Work Phone: [facility] Comment on above: Viveros's esophagus with dysplasia (Primary Dx); Status post laparoscopic Santos fundoplication; Hiatal hernia Start: 01-02-2021 Orders Only Abbe cabello MD Work Phone: [facility] Comment on above: Viveros's esophagus with dysplasia Start: 12-29-2020 Admission to [facility] Alvin Ochoa BANK ADVISOR Work Phone: [facility] Comment on above: History of Viveros's esophagus (Primary Dx) Start: 12-26-[address] [facility] Alice Ochoa BANK ADVISOR Work Phone: [facility] Comment on above: Elective surgery (Pr imary Dx) Start: 12-15-2020 Admission to [facility] [place] Alvin Alice Don BANK ADVISOR Work Phone: [facility] Comment on above: History of Viveros's esophagus (Primary Dx); Paraesophageal hiatal hernia Start: 10-21-2020 Orders Only Abbe cabello MD Work Phone: [facility] Comment on above: Elective surgery (Pr imary Dx) Start: 10-21-2020 End: 10-21-2020 Office outpatient visit 25 minutes Abbe Wood MD Work Phone: [facility] Comment on above: History of Viveros's esophagus (Primary Dx); Status post laparoscopic Santos fundoplication Start: 04-20-2020 End: 04-20-2020 Postop follow up visit related to original px Abbe Wood Work Phone: [facility] Comment on above: Postoperative follow -up (Primary Dx); Viveros's esophagus without dysplasia Start: 04-04-2020 End: 04-05-2020 Subsequent hospital visit by physician Abbe Wood Work Phone: [facility] Comment on above: Paraesophageal hiata l hernia Start: 03-31-2020 End: 03-31-2020 Orders Only Destiny Muñiz Work Phone: [facility] Start: 03-21-2020 Preprocedural examin ation done Abbe Wood MD Work Phone: [facility] Start: 03-08-2020 End: 03-08-2020 Orders Only Alvin Ochoa Work Phone: [facility] Comment on above: Elective surgery (Pr imary Dx) Start: 03-07-2020 End: 03-07-2020 Admission to day surgery Alvin Ochoa Work Phone: [facility] Comment on above: Paraesophageal hiata l hernia (Primary Dx) Start: 01-05-2020 End: 01-05-2020 Office outpatient new 45 minutes Dago Mnaish Fallonanaidcaroline Work Phone: [facility] Comment on above: Paraesophageal hiata l hernia (Primary Dx); Viveros's esophagus without dysplasia; Heartburn; Pharyngoesophageal dysphagia; Bloating Start: 12-30-2019 End: 12-30-2019 Subsequent hospital visit by physician Provider Not In System [facility] Comment on above: Arrived Start: 06-13-2018 End: 06-13-2018 Patient encounter procedure Lb Lyle Facility:[facility] Start: 11-25-2017 End: 11-25-2017 Patient encounter procedure Arabella Oden Facility:[facility] Procedures Date Procedure Procedure Detail Performing Clinician Start: 09-19-2024 CT angiography of chest with contrast Dr. Emanuel Aguilar DO Work Phone: Start: 09-19-2024 D-dimer assay, quantitative Dr. Emanuel keith DO Work Phone: Comment on above: CRITICAL VALUE CALLED TO Saleem VASQUEZ09/[id number] Sena Perez.RESULTS READ BACK BY SAME. D-Dimer ELEVATED (>0.49): Additional studies and clinicalassessments are indicated to conclude diagnosis of:Deep Vein Thrombosis (DVT) or Pulmonary Embolism (PE) Start: 09-19-2024 Plain chest X-ray Dr. Emanuel Aguilar DO Work Phone: Start: 09-19-[address] Emanuel Aguilar DO Work Phone: Start: 04-04-2020 End: 04-04-2020 Esophagogastroduodenoscopy Abbe oro [...] or 75+ (1 - 1-dose 75+ series) [facility] Start: 10-12-2024 Influenza vaccination Influenza Vaccine (Season Ended) [facility] Start: 09-19-2024 [facility] Start: 09-19-2024 [facility] Start: 10-13-2023 COVID-19 Vaccine ( season) COVID-19 Vaccine ( season) [facility] Start: 10-13-2023 Influenza vaccination [facility] Start: 09-24-2023 End: 09-24-2023 Admission to same day surgery center 09/24/2023 7:20 AM EDT - 09/24/2023 7:50 AM EDT [facility] Endoscopy [address] [place] [address] Abbe Wood MD [address] [address] ESOPHAGOSCOPY WITH RFA [facility] Comment on above: ESOPHAGOSCOPY WITH RFA Start: 09-24-2023 End: 09-24-2023 ESOPHAGOSCOPY ESOPHAGOSCOPY Long-segment Viveros's esophagus Status post laparoscopic Santos fundoplication Viveros's esophagus with dysplasia 09/24/2023 7:20 AM EDT [facility] Start: 09-24-2023 Subsequent hospital visit by physician 09/24/2023 7:20 AM EDT Hospital Encounter [facility] Endoscopy [address] [place] [address] Abbe Wood MD 335 [facility] [address] [place] [address] [facility] Start: 07-09-2023 End: 07-09-2023 Admission to same day surgery center 07/09/2023 7:25 AM EDT - 07/09/2023 7:55 AM EDT [facility] Endoscopy [address] [place] [address] Abbe Wood MD 335 Daniela Ro[address] [facility] [address] [place] [address] ESOPHAGOSCOPY WITH RFA [facility] Endoscopy Comment on above: ESOPHAGOSCOPY WITH RFA Start: 07-09-2023 End: 07-09-2023 ESOPHAGOSCOPY ESOPHAGOSCOPY Long-segment Viveros's esophagus Status post laparoscopic Santos fundoplication Viveros's esophagus with dysplasia 07/09/2023 7:25 AM EDT [facility] Start: 07-09-2023 Subsequent hospital visit by physician 07/09/2023 7:25 AM EDT Hospital Encounter [facility] Endoscopy [address] [place] [address] Abbe Wood MD 335 [address] [address] [facility] Start: 04-16-2023 End: 04-16-2023 Admission to same day surgery center 04/16/2023 7:20 AM EST - 04/16/2023 7:50 AM EST Surgery [facility] Endoscopy [address] [place] [address] Abbe Wood MD 335 [facility] Isabella [address] [address] ESOPHAGOSCOPY WITH RFA [facility] Endoscopy Comment on above: ESOPHAGOSCOPY WITH RFA Start: 04-16-2023 End: 04-16-2023 ESOPHAGOSCOPY ESOPHAGOSCOPY Long-segment Viveros's esophagus 04/16/2023 7:20 AM EST [facility] Start: 04-16-2023 Subsequent hospital visit by physician 04/16/2023 7:20 AM EST Hospital Encounter [facility] Endoscopy [address] [place] [address] Abbe Wood MD 335 [facility] [address] [address] [facility] Start: 01-08-2023 Subsequent hospital visit by physician 01/08/2023 Hospital Encounter [facility] Endoscopy [address] [place] [address] Abbe Wood MD 335 [address] [address] [facility] Start: 12-05-2022 End: 12-05-2022 Patient encounter procedure 12/05/2022 8:00 AM EDT [facility] [address] Medical Office Building, 5th [place] [address] Abbe Wood MD [facility] Daniela Mason [address] [address] [facility] Start: 10-16-2022 End: 10-16-2022 Admission to same day surgery center 10/16/2022 7:25 AM EDT - 10/16/2022 7:55 AM EDT Surgery [facility] [address] [place] [address] Abbe Wood MD [address] [place] [address] [address] ESOPHAGOSCOPY WITH RFA [facility] Comment on above: ESOPHAGOSCOPY WITH RFA Start: 10-16-2022 End: 10-16-2022 ESOPHAGOSCOPY ESOPHAGOSCOPY Viveros's esophagus with dysplasia Status post laparoscopic Santos fundoplication 10/16/2022 7:25 AM EDT [facility] Start: 10-16-2022 Subsequent hospital visit by physician [facility] Start: 10-12-2022 COVID-19 Vaccine () COVID-19 Vaccine () [facility] Start: 10-12-2022 Influenza vaccination Sequential Influenza Vaccine (#1) [facility] Start: 09-13-2022 End: 09-13-2022 Patient encounter procedure 09/13/2022 8:30 AM EDT [facility] [address] [facility] Medical Office Building, 5th [place] [address] Abbe Wood MD 335 [address] [address] [facility] Start: 04-17-2022 Subsequent hospital visit by physician 04/17/2022 Hospital Encounter Abbe Wood MD 335 Daniela Mason [facility] [address] [place] [address] [facility] Start: 12-14-2021 End: 12-14-2021 ESOPHAGOSCOPY ESOPHAGOSCOPY Viveros's esophagus with dysplasia 12/14/2021 11:36 AM EDT [facility] Start: 11-23-2021 End: 11-23-2021 Patient encounter procedure 11/23/2021 Office Visit Abbe Willis MD 335 [address] [address] [facility] Start: 10-12-2021 Influenza vaccination Sequential Influenza Vaccine (#1) [facility] Start: 08-30-2021 End: 08-30-2021 Patient encounter procedure 08/30/2021 Office Visit Abbe Willis MD 335 Daniela [address]UNDB[address]G [address] [place] [address] [facility] Start: 08-16-2021 End: 08-16-2021 Patient encounter procedure 08/16/2021 Office Visit Abbe Willis MD 335 [address]G [address] [place] [address] [facility] Start: 07-18-2021 End: 07-18-2021 Admission to same day surgery center 07/18/2021 Surgery Abbe Wood MD 335 [address]a [address]G [address] [place] [address] ESOPHAGOSCOPY WITH RFA [facility] Comment on above: ESOPHAGOSCOPY WITH RFA Start: 07-18-2021 Subsequent hospital visit by physician 07/18/2021 Hospital Encounter Abbe Wood MD 335 [address] [place] [address] [facility] Start: 07-18-2021 End: 07-18-2021 ESOPHAGOSCOPY [facility] Start: 07-04-2021 End: 07-04-2021 Admission to same day surgery center 07/04/2021 Surgery Abbe Wood MD 335 [address] [place] [address] ESOPHAGOSCOPY WITH [facility] Endoscopy Comment on above: ESOPHAGOSCOPY WITH RFA Start: 07-04-2021 End: 07-04-2021 ESOPHAGOSCOPY ESOPHAGOSCOPY Viveros's esophagus with dysplasia Status post laparoscopic Santos fundoplication Slipped Santos fundoplication Hiatal hernia 07/04/2021 7:25 AM EDT [facility] Start: 07-04-2021 Subsequent hospital visit by physician 07/04/2021 Hospital Encounter Abbe Wood MD 335 [address]a LUN[address]G [address] [place] [address] [facility] Start: 05-01-2021 End: 05-01-2021 Admission to same day surgery center 05/01/2021 Surgery Abbe Wood MD 335 Daniela [address]UNDBERG [address] [place] [address] ESOPHAGOSCOPY WITH [facility] Endoscopy Comment on above: ESOPHAGOSCOPY WITH RFA Start: 05-01-2021 End: 05-01-2021 ESOPHAGOSCOPY ESOPHAGOSCOPY Viveros's esophagus with dysplasia Status post laparoscopic Santos fundoplication Hiatal hernia 05/01/2021 1:55 PM EDT [facility] Start: 05-01-2021 Subsequent hospital visit by physician 05/01/2021 Hospital Encounter Abbe Wood MD 335 [address]a [address]UNDB[address]G [address] [place] [address] [facility] Start: 03-23-2021 Administration of herpes zoster vaccine Zoster Vaccines (2 of 2) [facility] Start: 03-15-2021 COVID-19 Vaccine (5 - Booster for Moderna series) COVID-19 Vaccine (5 - Booster for Moderna series) [facility] Start: 03-15-2021 COVID-19 Vaccine (5 - Booster) COVID-19 Vaccine (5 - Booster) [facility] Start: 03-15-2021 COVID-19 Vaccine (5 - Moderna series) COVID-19 Vaccine (5 - Moderna series) [facility] Start: 02-08-2021 End: 02-08-2021 Patient encounter procedure 02/08/2021 Office Visit Heartburn Abbe Wood MD [address] [facility] [address] [place] [address] [facility] Start: 01-09-2021 Subsequent hospital visit by physician 01/09/2021 Hospital Encounter Abbe Wood MD 335 Daniela Mason M[facility] [address] [place] [address] [facility] Start: 01-02-2021 End: 01-02-2021 Admission to same day surgery center 01/02/2021 Surgery Abbe Wood MD 335 Daniela Mason [facility] [address] [place] [address] ESOPHAGOSCOPY WITH RFA [facility] Comment on above: ESOPHAGOSCOPY WITH RFA Start: 01-02-2021 End: 01-02-2021 ESOPHAGOSCOPY ESOPHAGOSCOPY History of Viveros's esophagus 01/02/2021 10:55 AM EST [facility] Start: 01-02-2021 Subsequent hospital visit by physician 01/02/2021 Hospital Encounter Abbe Wood MD [address] [facility] [address] [place] [address] [facility] Start: 01-02-2021 End: 01-02-2021 Admission to same day surgery center 01/02/2021 Surgery Abbe Wood MD [address] [place] [address] ROBOTIC REDO HIATAL HERNIA WITH MESH AND REDO SANTOS FUNDOPLICATION [facility] Comment on above: ROBOTIC REDO HIATAL HERNIA WITH MESH AND REDO SANTOS FUNDOPLICATION Start: 01-02-2021 End: 01-02-2021 SANTOS FUNDOPLICATION ROBOTIC XI SANTOS FUNDOPLICATION ROBOTIC XI History of Viveros's esophagus Paraesophageal hiatal hernia 01/02/2021 7:20 AM [facility] Main OR Start: 01-02-2021 Subsequent hospital visit by physician 01/02/2021 Hospital Encounter Abbe Wood MD [address] [place] [address] [facility] Start: 12-28-2020 End: 12-28-2020 Patient encounter procedure 12/28/2020 Office Visit Heartburn Abbe Wood MD [address] [facility] [address] [place] [address] [facility] Start: 12-27-2020 End: 12-27-2020 Admission to same day surgery center 12/27/2020 Surgery Abbe Wood MD [address] [facility] [address] [place] [address] ESOPHAGOGASTRODUODENOSCOPY WITH BIOPSY [facility] Endoscopy Comment on above: ESOPHAGOGASTRODUODENOSCOPY WITH BIOPSY Start: 12-27-2020 End: 12-27-2020 Esophagogastroduodenoscopy ESOPHAGOGASTRODUODENOSCOPY Elective surgery 12/27/2020 12:55 PM [facility] Start: 12-27-2020 Subsequent hospital visit by physician 12/27/2020 Hospital Encounter Abbe Wood MD 335 Daniela LUNDBERG [address] [place] [address] [facility] Start: 12-15-2020 End: 12-15-2020 Admission to same day surgery center 12/15/2020 Surgery Abbe Wood MD 335 [address] [place] [address] ESOPHAGOGASTRODUODENOSCOPY WITH BIOPSY [facility]oscopy Comment on above: ESOPHAGOGASTRODUODENOSCOPY WITH BIOPSY Start: 12-15-2020 End: 12-15-2020 Esophagogastroduodenoscopy ESOPHAGOGASTRODUODENOSCOPY History of Viveros's esophagus Status post laparoscopic Santos fundoplication 12/15/2020 2:25 PM EDT [facility] Start: 12-15-2020 Subsequent hospital visit by physician 12/15/2020 Hospital Encounter Abbe Wood MD 335 [address]G [address] [place] [address] [facility] Start: 12-15-2020 End: 12-15-2020 Esophagogastroduodenoscopy ESOPHAGOGASTRODUODENOSCOPY History of Viveros's esophagus Status post laparoscopic Santos fundoplication Slipped Santos fundoplication Hiatal hernia Esophagitis 12/15/2020 12:36 PM EDT [facility] Start: 11-11-2020 End: 11-11-2020 Admission to same day surgery center 11/11/2020 Surgery Abbe Wood MD 335 [address] [address] ESOPHAGOGASTRODUODENOSCOPY WITH BIOPSY [facility] Comment on above: ESOPHAGOGASTRODUODENOSCOPY WITH BIOPSY Start: 11-11-2020 End: 11-11-2020 Esophagogastroduodenoscopy ESOPHAGOGASTRODUODENOSCOPY History of Viveros's esophagus Status post laparoscopic Santos fundoplication 11/11/2020 9:25 AM EDT [facility] Start: 11-11-2020 Subsequent hospital visit by physician 11/11/2020 Hospital Encounter Abbe Wood MD 335 Daniela Mason [facility] [address] [place] [address] [facility] Start: 11-10-2020 COVID-19 Vaccine (3 - Booster for Moderna series) COVID-19 Vaccine (3 - Booster for Moderna series) [facility] Start: 11-07-2020 End: 11-07-2020 Patient encounter procedure 11/07/2020 Office Visit Abbe Mathis MD [address] [facility] [address] [place] [address] [facility] Start: 10-21-2020 End: 10-21-2020 Office Visit 10/21/2020 Office Visit Abbe Willis MD [address] [facility] [address] [place] [address] [phone] [facility] Start: 10-12-2020 Influenza vaccination Sequential Influenza Vaccine (#1) [facility] Start: 04-20-2020 End: 04-20-2020 Office Visit 04/20/2020 Office Visit HeartAbbe Au MD [address] [facility] [address] [place] [address] [phone] [facility] Start: 04-04-2020 End: 04-04-2020 Hospital Encounter [facility] Comment on above: REPAIR HERNIA HIATAL WITH LINX SPHINCTER AUGMENTATION ROBOTIC XI Start: 03-31-2020 End: 03-31-2020 Office Visit 03/31/2020 Office Visit Lab Alvin Ochoa, [place] [address] [facility] [address] [place] [address] [phone] [facility] Start: 03-21-2020 End: 03-21-2020 Office Visit 03/21/2020 Office Visit Pre-Admission Testing [facility] Preadmission Testing Start: 01-28-2020 End: 01-28-2020 Hospital Encounter [facility] Comment on above: Viveros's esophagus without dysplasia; Paraesophageal hiatal hernia; Heartburn; Pharyngoesophageal dysphagia; Bloating REPAIR HERNIA HIATAL WITH LINX SPHINCTER AUGMENTATION ROBOTIC XI Start: 01-24-2020 End: 01-24-2020 Office Visit 01/24/2020 Office Visit Lab Alvin Ochoa, BANK ADVISOR [address] [place] [address] [phone] [facility] Start: 01-19-2020 End: 01-19-2020 Office Visit 01/19/2020 Office Visit Pre-Admission Testing [facility] Preadmission Testing Start: 01-06-2020 End: 01-06-2020 Office Visit 01/06/2020 Office Visit Heartburn Dago Mcnamara MD [address] [place] [address] [phone] Alvin Ochoa CNP [address] [place] [address] [phone] [facility] Start: 06-11-2017 Pneumococcal vaccination Pneumococcal Vaccine Age 65+ (2 of 2 - PCV13) [facility] Start: 06-11-2017 Pneumococcal Vaccine: Age 50+ (2 of 2 - PCV) Pneumococcal Vaccine: Age 50+ (2 of 2 - PCV) [facility] Start: 06-11-2017 Pneumococcal Vaccine: Age 65+ (2 - PCV) Pneumococcal Vaccine: Age 65+ (2 - PCV) [facility] Start: 06-11-2017 Pneumococcal Vaccine: Age 65+ (2 of 2 - PCV) Pneumococcal Vaccine: Age 65+ (2 of 2 - PCV) [facility] Start: 2015 Fall risk assessment Falls Risk Assessment [facility] Start: 2015 Pneumococcal Vaccine: Age 65+ (1 of 1 - PPSV23) Pneumococcal Vaccine: Age 65+ (1 of 1 - PPSV23) [facility] Start: 02-29-2000 Administration of herpes zoster vaccine Zoster Vaccines (1 of 2) [facility] Start: 02-29-2000 Screening for malignant neoplasm of colon [facility] Start: 02-29-1968 Hepatitis C antibody, confirmatory test Hepatitis C Screening [facility] Start: 02-29-1968 Hepatitis C screening Hepatitis C Screening [facility] Start: 1966 COVID-19 Vaccine (1 of 2) COVID-19 Vaccine (1 of 2) [facility] Start: 1962 Adolescent depression screening assessment Depression Screening (PHQ9) [facility] Start: 1962 COVID-19 Vaccine (1) COVID-19 Vaccine (1) [facility] Start: 1962 Depression screening using PHQ-9 (Patient Health Questionnaire 9) score [facility] Start: 1953 History and physical examination, annual for health maintenance Wellness Visit [facility] Start: 1953 Medicare Wellness Visit Medicare Wellness Visit [facility] Start: 1950 Fall risk assessment Falls Risk Assessment [facility] Start: 1950 Prostate specific antigen measurement PSA Level [facility] Start: 1950 Screening for malignant neoplasm of colon [facility] Start: 1950 Tetanus vaccination Tetanus: Every 10yrs [facility] End: 03-08-2021 Covid-19/Influenza Order Algorithm : COVID-19 Lab Test Only (OP in UTM) Covid-19/Influenza Order Algorithm : COVID-19 Lab Test Only (OP in UTM) Microbiology Routine Elective surgery 1 Occurrences starting 03/08/2020 until 03/08/2021 [facility] Comment on above: 1 Occurrences starting 03/08/2020 until 03/08/2021 ESOPHAGOSCOPY ESOPHAGOSCOPY Ba rrett's esophagus with dysplasia Status post laparoscopic Santos fundoplication Slipped Santos fundoplication [facility] ESOPHAGOSCOPY ESOPHAGOSCOPY Ba rrett's esophagus with dysplasia [facility] ESOPHAGOSCOPY ESOPHAGOSCOPY Ba rrett's esophagus with dysplasia Status post laparoscopic Santos fundoplication [facility] ESOPHAGOSCOPY [facility] Esophagoscopy flexib le transoral diagnostic ESOPHAGOSCOPY Long-segment Viveros's esophagus Status post laparoscopic Santos fundoplication Viveros's esophagus with dysplasia [facility] Esophagoscopy flexib le transoral diagnostic ESOPHAGOSCOPY Long-segment Viveros's esophagus Status post laparoscopic Santos fundoplication Viveros's esophagus with dysplasia [facility] Esophagoscopy flexib le transoral diagnostic ESOPHAGOSCOPY 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 Status post laparoscopic Santos fundoplication [facility] Measurement of respi ratory function [facility] SANTOS FUNDOPLICATIO N ROBOTIC XI SANTOS FUNDOPLICATION ROBOTIC XI History of Viveros's esophagus Paraesophageal hiatal hernia [facility] Main OR Partial thromboplast in time, activated [facility] Patient Education ED Chest Pain, Uncertain Cause [facility] Work Phone: Platelets [#/volume] in Blood [facility] Prothrombin time [facility] End: 10-21-2021 SARS-CoV-2 (COVID-19) RdRp gene [Presence] in Respiratory specimen by BENJAMIN with probe detection COVID-19, Molecular Microbiology Routine Elective surgery 1 Occurrences starting 10/21/2020 until 10/21/2021 [facility] Work Phone: Comment on above: 1 Occurrences starting 10/21/2020 until 10/21/2021 [facility] Immunizations Immunization Date Immunization Notes Care Provider [facility] 01-15-2022 influenza virus vacc ine, unspecified formulation Abbe Wood MD Work Phone: [facility] 05-10-2020 Moderna SARS-CoV-2 Vaccination Abbe Wood MD Work Phone: [facility] 04-13-2020 Moderna SARS-CoV-2 Vaccination Abbe Wood MD Work Phone: [facility] Payers Date Payer Category Payer Self-pay [id number] 2020 Miscellaneous or Other COMMERCIA L [id number] 2020 Unknown [id number] 2017 Unknown 2015 Medicare 2015 Medicare [id number] 2015 Medicare [id number] 2013 Unknown [id number] 1950 Unknown [id number] [id number] .717 1950 Unknown [id number] 2.16.840.1.854272.3.579.2 .717 1950 Unknown [id number] 2.16.840.1.869150.3.579.2 .900 1950 Unknown [id number] 2.16.840.1.968260.3.579.2 .903 1950 Unknown [id number] 2.16.840.1.050518.3.579.2 .903 1950 Unknown [id number] 2.16.840.1.377426.3.579.2 .903 1950 Unknown [id number] 2.16.840.1.408163.3.579.2 .903 1950 Unknown [id number] 2.16.840.1.697659.3.579.2 .903 1950 Unknown [id number] 2.16.840.1.386084.3.579.2 .903 1950 Unknown [id number] 2.16.840.1.106628.3.579.2 .903 1950 Unknown [id number] 2.16.840.1.856625.3.579.2 .90 Unknown [id number] [id number] .[id number] Unknown [facility] [id number] Unknown [id number] Unknown [id number] 2.16.840.1.632698.3.579.2 .462 Unknown [id number] 2.16.840.1.982265.3.579.2 .462 Unknown [id number] 2.16.840.1.612432.3.579.2 .462 Unknown [id number] 2.16.840.1.550860.3.579.2 .462 Unknown [id number] 2.16.840.1.190516.3.579.2 .462 Unknown [id number] 2.16.840.1.131843.3.579.2 .462 Unknown [id number] 2.16.840.1.999724.3.579.2 .462 Social History Date Type Detail Facility Tobacco smoking stat [facility] Unknown if ever smoked [facility] Start: 1950 Sex Assigned At Not on file [facility] Start: 01-05-2020 End: 09-19-2024 Tobacco smoking status NHIS Never smoker [facility] Start: 01-05-2020 End: 09-27-2021 Tobacco use and exposure Never used [facility] Start: 05-04-2021 End: 06-19-2022 Exposure to SARS-CoV-2 (event) Not sure [facility] Start: 03-21-2020 End: 07-22-2024 Alcohol intake Current drinker of alcohol (finding) [facility] Start: 03-21-2020 Alcohol Comment OCCAS [facility] Start: 12-26-2020 History SDOH Alcohol Comment OCCAS - one drink 2 to 3 times a week [facility] Start: 02-13-2017 End: 02-08-2022 Tobacco smoking status NJIS Unknown if ever smoked [facility] Start: 1950 Sex Assigned At Male [facility] Start: 01-05-2020 End: 07-22-2024 Cigarette pack-years [facility] Start: 06-20-2022 End: 07-22-2024 Tobacco use panel [facility] Start: 01-05-2020 Gender identity Identifies as male gender (finding) [facility] Start: 01-05-2020 Sexual orientation Heterosexual (finding) [facility] Medical Equipment Procedure Code Equipment Code Equipment Origin al Text Equipment Identifier Dates Mesh 7 X 10cm Resorbable Phasix St - Sna [id number])[id number], [id number] FDA Start: 04-04-2020 Tacker 5mm Singl e Use Absorbatack 30x W/30 Tacks - Sna [id number] (21)[id number], [id number] FDA Start: 04-04-2020 MESH,VENTLEX ST ,LG 8CM FDA Start: 01-31-2017 TACKER,SECURE STRAP FDA Start : 01-31-2017 MESH,VENTLEX ST ,LG 8CM FDA Start: 01-31-2017 TACKER,SECURE STRAP FDA Start : 01-31-2017 Mesh 7 X 10cm Resorbable Phasix St - Sna [id number])[id number], [id number]_[facility] [facility] FDA Start: 10-09-2021 MESH,VENTLEX ST ,LG 8CM FDA Start: 01-31-2017 TACKER,SECURE STRAP FDA Start : 01-31-2017 MESH,VENTLEX ST ,LG 8CM FDA Start: 01-31-2017 TACKER,SECURE STRAP FDA Start : 01-31-2017 MESH,VENTLEX ST ,LG 8CM FDA Start: 01-31-2017 TACKER,SECURE STRAP FDA Start : 01-31-2017 Mental Status Date Assessment Result Facility 09-19-2024 Cognitive function Voice/Name [facility] Work Phone: Clinical Notes 10-21-2020 to 09-19-2024 Note Date & Type Note Facility 09-19-2024 Discharge summary [facility] 09-19-2024 Radiology Diagnostic study note [facility] [address] [place], [place] [id number] CTA Chest W/WO Contrast MR#: [id number] Acct: [id number] Name: ARY FORDEEARNEST Rep #: [id number] : 1950 M 74 From: Azalea Zee MD PCP: Dr. Emanuel Aguilar DO Status: REG ER Study:CTA Chest W/WO Contrast Date of Exam: 09/19/24 Exam# [id number] Ordering Dr: Ovidio Rivera MD EXAM: CT Angiography Chest Without and With Intravenous Contrast CLINICAL INDICATION: LEFT-SIDED SUDDEN ONSET PLEURITIC CHEST PAIN TECHNIQUE: Axial computed tomographic angiography images of the chest without and with intravenous contrast. This CT exam was performed using one or more of the following dose reduction techniques: automated exposure control, adjustment of the mA and/or kV according to patient size, and/or use of iterative reconstruction technique. MIP reconstructed images were created and reviewed. COMPARISON: No relevant prior studies available. FINDINGS: LIMITATIONS: Suboptimal opacification of the pulmonary arteries. PULMONARY ARTERIES: No pulmonary embolism is identified. Some of the distal pulmonary arteries cannot be evaluated due to suboptimal opacification. AORTA: No acute findings. No thoracic aortic aneurysm. LUNGS AND PLEURAL SPACES: Lung emphysema/COPD with left pleural effusion and associated compressive atelectasis. Nodular opacity in the left lower lobe measuring up to 5.0 cm. Mass can not be excluded. No pneumothorax. HEART: Unremarkable. No cardiomegaly. No significant pericardial effusion. No evidence of RV dysfunction. MEDIASTINUM: Scattered mediastinal lymph nodes some of which are upper limits of normal in size and are most likely reactive lymph nodes. Moderate esophageal hiatal hernia. BONES/JOINTS: No acute fracture. No dislocation. SOFT TISSUES: Unremarkable. LYMPH NODES: See above. CT/CTA Chest W/WO Contrast IMPRESSION: 1. No pulmonary embolism is identified. Some of the distal pulmonary arteries cannot be evaluated due to suboptimal opacification. 2. Lung emphysema/COPD with left pleural effusion and associated compressive atelectasis. Nodular opacity in the left lower lobe measuring up to 5.0 cm. Mass can not be excluded. 3. Scattered mediastinal lymph nodes some of which are upper limits of normal in size and are most likely reactive lymph nodes. 4. Moderate esophageal hiatal hernia. Reading Location: [facility] CC: Dr. Candido Rivera MD; Dr. Emanuel Aguilar DO ~ Population Health Manager: Signed [facility] 09-19-2024 Discharge summary Note Date/Time September 19, 2024 3:50pm [facility] Medical Records Department [address] [place] [address] Emergency Department Summary 09/19/24 MR#: [id number] Acct: [id number] Name: ARY FORDE Rep #:[id number] : 1950 74 From: Candido Rivera MD PCP: Dr. Emanuel Aguilar, DO Status:REG ER Location: ED HPI History of Present Illness Chief Complaint: Chest Pain Informant: patient Onset/Context/Timing Onset: Today Activity at onset: sudden Timing: Continuous Quality: Positive for Sharp Location: Left Chest Current Severity: Moderate Maximum Severity: Severe Worsened By: Breathing Relieved By: Nothing Associated Symptoms: Positive for Dyspnea; Negative for Nausea, Vomiting, Diaphoresis, Cough, Fever, Lightheadedness, Acid Reflux or Palpitations Narrative Narrative: 74-year-old male with past medical history of A-fib, hypertension and Viveros's esophagitis. Typically is on Eliquis it has been stopped since Saturday due estee upcoming endoscopy. No prior history of DVT or PE. No prior AR, coronary disease or stents. States he was at home he was at rest about hour ago he had sudden onset of left-sided chest pain. Associated shortness of breath. No diaphoresis no nausea. No leg pain or swelling. No hemoptysis. No recent travel, surgery or immobilization. No having the pain currently. Was brought in by squad. He was given aspirin and nitro and nitro would not give him any significant relief. Prior Similar Symptoms: No Recent Illness/Hospitalization: No CVD Risk Factors: Positive for Hypertension; Negative for Diabetes PE Risk Factors: Negative for Recent Travel/Surgery, Recent Immobilization, Prior DVT or PE, Cancer or OCP + Smoking + >/=35 TAD Risk Factors: Negative for Marfan's Syndrome [facility] Medical History Atrial fibrillation Premature atrial contractions Hyperlipidemia Essential hypertension Ventral incisional hernia Arthritis Home Medications ?Medication ?Instructions ?Recorded ?Last Taken ?Type ezetimibe 10 mg-simvastatin 20 mg 1 tab PO DAILY 02/18 Unknown History tablet amlodipine 10 mg tablet 10 mg PO DAILY 06/27/21 Unkn own History cyanocobalamin (vitamin B-12) 500 500 mcg PO DAILY Unknown History mcg tablet ammonium lactate 12 % topical cream 1 applic topical D AILY 01/28/23 Unknown History omeprazole 40 mg capsule,delayed 40 mg PO BID 01/28/23 Unknown History release sucralfate 1 gram tablet 1 g PO QACHS 01/28/23 Unknow n History apixaban 5 mg tablet (Eliquis) 5 mg PO BID Faxing to [facility] 06/09/24 09/16/24 Rx [facility] tabs Allergy/AdvReac Type Severity Reaction Status Date / Time No Known Allergies Allergy Verified 09/19/24 12:27 Family History Father Heart disease Surgical History Viveros esophagus (12/2022) History of ventral hernia repair History of Santos fundoplication History of hernia surgery (~09/2021) Social History Smoking Status: Never smoker alcohol intake: current alcohol intake frequency: a few times a week substance use type: does not use caffeine: Yes Type: coffee Number of servings: 2 ROS ROS ED ROS Narrative Denies recent illness. Denies recent exertional chest pain. Denies recent exertional dyspnea. No falls or chest wall trauma. Constitutional Constitutional ED: Denies chills or fever(s) Eyes Eyes: Reports none ENT ENT ED: Denies ear pain Cardiovascular Cardiovascular: Reports chest pain; Denies palpitations or racing heartbeat Respiratory/Chest Respiratory/Chest: Reports dyspnea Gastrointestinal Gastrointestinal: Denies abdominal pain Genitourinary Genitourinary ED: Denies dysuria or hematuria Musculoskeletal Musculoskeletal: Denies arthralgias or back pain Integumentary Denies abscess Neurologic Neurologic: Denies headache(s) Psychiatric Psychiatric: Denies anxiety Endocrine Endocrinology: Denies cold intolerance Hematologic/Lymphatic Hematologic/Lymphatic: Denies easy bleeding or easy bruising Allergic/Immunologic Allergic/Immunologic ED: Denies mouth swelling, tongue swelling or urticaria EXAM Physical Exam Narrative Exam Narrative: 73-year-old male sitting upright in bed. Vital signs are stable he does have a pulse ox in the 90% on room air borderline hypoxic. Family is at bedside. H EENT exam pupils round react light. Extra motions are intact. Neck is nontender JVD. No lymphadenopathy. Lungs clear to auscultation bilaterally. Heart regular rhythm rate about 90 no murmur. Chest wall there is no reproducible tenderness no ecchymosis or bruising no subcu air. Abdomen soft nontender. Moving all 4 extremities. Calves are nontender no edema no cords. 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 Normal equal symmetrical radial pulses. Back nontender. Neurologically is awake alert. Answering questions following commands. Const Vital Signs: 09/19/24 12:27 09/19/24 12:32 09/19/24 12:35 Temperature 98.4 F Temperature Source Oral Pulse Rate 97 Respiratory Rate 13 Respiratory Effort Normal Non-Labored Blood Pressure 129/79 H Blood Pressure Mean 95 Pulse Ox 90 93 Oxygen Delivery Method Room Air Room Air Oxygen Flow Rate (L/min) 09/19/24 12:35 09/19/24 12:56 09/19/24 13:00 Temperature Temperature Source Pulse Rate 110 H Respiratory Rate 26 H Respiratory Effort Blood Pressure 156/69 H Blood Pressure Mean 94 Pulse Ox 92 100 Oxygen Delivery Method Nasal Cannula Nasal Cannula Oxygen Flow Rate (L/min) 2 2 09/19/24 14:00 09/19/24 15:00 Temperature Temperature Source Pulse Rate 96 89 Respiratory Rate 23 H 24 H Respiratory Effort Blood Pressure 147/81 H 113/72 Blood Pressure Mean 101 86 Pulse Ox 98 94 Oxygen Delivery Method Oxygen Flow Rate (L/min) Positive well nourished and well developed; Negative for obese, cachectic, contractures or unkempt General Appearance ED: well developed; Negative for unkempt, cachectic, contractures, NAD or pallor Nutritional Appearance: Negative for cachectic or obese HEENT Reports moist mucous membranes normocephalic and atraumatic Eyes PERRL and EOMs intact bilaterally Neck no lymphadenopathy, supple and no JVD Chest Wall inspection of chest normal and palpation of chest normal Resp normal respiratory effort and clear to auscultation bilaterally Auscultation: Negative for rales, rhonchi, wheezes or diminished lung sounds Cardio regular rate, regular rhythm, S1 normal heart sound, S2 normal heart sound and no murmurs Peripheral Pulses: pulses 2+ throughout GI normal to inspection, nondistended, normoactive bowel sounds, soft to palpation,non-tender, non-distended and no masses Back/Spine no CVA tenderness and no thoracic nor lumbar tenderness Extremity normal to inspection General Extremety ED: Negative for edema, pulses abnormal or tenderness General Extremity: Negative for edema or pulses abnormal Neuro oriented x3 and CN's II-XII intact bilaterally Sensorium / Orientation: awake, alert, oriented to person, oriented to place andoriented to time Motor Exam: strength 5/5 throughout Psych mental status grossly normal Appearance: Negative for unkempt Skin no rashes or lesions noted and no wounds General Skin Exam: Negative for jaundice or pallor Rashes: No rashes noted Trauma: Negative for abrasion, laceration or puncture Heart Score History: Slightly/Non-Suspicious ECG: Normal Age: >/= 65 years Risk Factors: 1 or 2 Risk Factors Troponin: </= Normal Limit Score: 3 MDM MDM MDM Narrative Medical decision making narrative: 74-year-old male chest pain at rest with no recent exertional symptoms. He is never had a DVT or PE but it is left-sided chest pain that is not reproducible and appears to be pleuritic. Undergoing cardiac workup. He is already receivedaspirin by squad and nitro nitro with limited no relief. He will be given morphine for pain and Zofran. D-dimer is being performed also for the possibility this being at PE. Clinically does not sound like a dissection he has no back pain. Otherwise he is medically stable. He will undergo a cardiac workup. Repeat exam patient was improved after receiving the morphine for his chest pain. He underwent a CTA and a says showed no signs of a PE but has a left pleural effusion. His cardiac workup was negative. Patient and I had his family discussed all his test results. He is feeling much better after the IV pain medication. We discussed follow-up for the pleural effusion. They are comfortable with him being discharged home with outpatient follow-up. His daughter works here as a neurology rv technician. History & Record Review Discussion w/independent historian: Patient and Family Additional record(s) reviewed:: Prior inpatient record, Prior outpatient record,Prior ED visit and Prior labs Lab Data Attestation: I reviewed the patient's lab results. Lab results narrative: CBC shows a white count of 9 H&H 12.3 and 36. Platelets 380. Chest x-ray chronic changes. Normal cardiac silhouette. Normal mediastinum. Atelectasis left lower lung. CT of the chest shows no PE. Left pleural effusion. Cannot rule out a mass. Chemistries unremarkable gap 13. BUN and creatinine 11 and 0.7. Glucose 152. Initial troponin 11. 2-hour troponin 8. D-dimer was elevated 3.94. Labs: Laboratory Results - last 24 hr 09/19/24 09/19/24 09/19/24 12:31 13:05 14:52 WBC 9.8 RBC 4.15 L Hgb 12.3 L Hct 36.9 L MCV 88.9 MCH 29.6 MCHC 33.3 RDW Std Deviation 40.0 RDW Coeff of Dennis 12.3 Plt Count 380 MPV 9.2 Immature Gran % (Auto) 0.300 Neut % (Auto) 74.3 H Lymph % (Auto) 17.0 L Mccone % (Auto) 5.9 Eos % (Auto) 2.1 Baso % (Auto) 0.4 Absolute Neuts (auto) 7.3 Absolute Lymphs (auto) 1.67 Nucleated RBC % 0 D-Dimer Quant (PE/DVT) 3.94 H* Sodium 136 Potassium 3.7 Chloride 100 Carbon Dioxide 23.3 Anion Gap 13 BUN 11 Creatinine 0.70 Estim Creat Clear Calc 86.28 Est GFR (MDRD) Non-Af 97 BUN/Creatinine Ratio 15.0 Glucose 152 H Calcium 9.1 Troponin T High Sens 11 Troponin T Hi Sens 2 Hr 8 Radiography Chest X-Ray - ED: 1 View, Read by ED Physician, Heart, Mediastinum, Bony Structures, Chronic Changes and - (Left lower lung atelectasis.) Diagnostic Testing: Clinical Impression(s) from Imaging Studies Chest X-Ray 09/19/24 12:39 IMPRESSION: Atelectasis or airspace disease left lower lobe. Consider pneumonia in the appropriate scenario. Reading Location: [id number] Chest CTA 09/19/24 13:38 IMPRESSION: 1. No pulmonary embolism is identified. Some of the distal pulmonary arteries cannot be evaluated due to suboptimal opacification. 2. Lung emphysema/COPD with left pleural effusion and associated compressive atelectasis. Nodular opacity in the left lower lobe measuring up to 5.0 cm. Mass can not be excluded. 3. Scattered mediastinal lymph nodes some of which are upper limits of normal in size and are most likely reactive lymph nodes. 4. Moderate esophageal hiatal hernia. Reading Location: [facility] Chest x-ray, portable, single view interpreted by myself shows normal cardiac silhouette. Normal aortic knob and mediastinum. Left lower lung appears to have atelectasis versus fluid like a pleural effusion. No obvious pneumonia. Rhythm Strip Rhythm Strip: Sinus Rhythm Rate: 92 Ectopy: None EKG Initial EKG: Attestation: I personally reviewed and interpreted this EKG as follows: Interpretation: Sinus Rhythm and No Acute Injury Pattern Comments: Normal sinus rhythm rate of 92 no acute signs of AR or ischemia. Discharge Plan Triage Chief Complaint: Chest Pain ED Provider: Candido Rivera Dx/Rx/DC Orders Clinical Impression: Chest pain, Pleural effusion on left, History of Viveros esophagus, History of atrial fibrillation Instructions: ED Chest Pain, Uncertain Cause Prescriptions: No Action amlodipine 10 mg tablet 10 mg PO DAILY cyanocobalamin (vitamin B-12) 500 mcg tablet 500 mcg PO DAILY sucralfate 1 gram tablet 1 g PO QACHS omeprazole 40 mg capsule,delayed release(DR/EC) 40 mg PO BID ammonium lactate 12 % cream 1 applic topical DAILY ezetimibe-simvastatin 1 TABLET tablet 1 tab PO DAILY Patient Comments: CHOLESTEROL Eliquis 5 mg tablet 5 mg PO BID Qty: 180 3RF Primary Care Provider: Emanuel Aguilar Referrals: Han Schumacher DO [Med Staff - Active Staff] - As soon as possible (Call his office this Saturday to get an appointment. Tell them you have a left pleural effusion that needs further evaluation.) Emanuel Aguilar DO [Primary Care Provider] - Activity Restrictions/Additional Instructions: Not specifically sure what caused the chest pain. It could be from esophageal spasm but there is no way to diagnose that in the ER. It could be from the pleural effusion the fluid that is along the left side of your lung. There is no signs of a heart attack. No signs of a blood clot. Call and follow-up with Dr. Schumacher regarding further evaluation of the left pleural effusion. Continue your reflux medication. Return to the emergency department if you are feeling worse. Print Language: Hungarian Disposition Disposition: Home, Self Care What to do if you have Problems For any increased pain, shortness of breath, bleeding, nausea or vomiting, chestpain, or any unexpected problems, contact your Primary Care Provider. Call [facility] ([phone]) or report to the closest Emergency Room. Call 911 if necessary. 09/19/24 1550 <Electronically signed by Candido Rivera MD> Cosigner Signature (if applicable): CC: Dr. Emanuel Aguilar DO ~ Signed [facility] Work Phone: 1(655) 366-112908-09-2025 Radiology Diagnostic study note [facility] [address] [place], [place] [address] Chest 1 View (Portable) MR#: [id number] Acct: [id number] Name: ARY FORDE Rep #: [id number] : 1950 M 74 From: Madeline Castelan MD PCP: Dr. Emanuel Aguilar DO Status: REG ER Study:Chest 1 View (Portable) Date of Exam: 09/19/24 Exam# [id number] Ordering Dr: Ovidio Rivera MD PROCEDURE: CHEST 1 VIEW (PORTABLE) 09/19/2024 REASON FOR EXAM: CHEST PAIN TECHNIQUE: Frontal view of the chest. COMPARISON: None FINDINGS: Hardware: EKG leads Heart: Top-normal size. Aorta is mildly tortuous. Lungs: Platelike atelectasis right lung base. Atelectasis or airspace disease in the lingula and left lower lobe. Scant pleural fluid on the left. Bones: Degenerative changes are identified within the thoracic spine. RAD/Chest 1 View (Portable) IMPRESSION: Atelectasis or airspace disease left lower lobe. Consider pneumonia in the appropriate scenario. Reading Location: [id number] CC: Dr. Candido Rivera MD; Dr. Emanuel Aguilar DO ~ Population Health Manager: Signed [facility]06-11-2025 NoteOPG [address] [facility] [address] ([address]) [facility] [address] [facility] [id number] Ary Forde is a 74 y.o. male being seen on 07/22/24 for Chief Complaint Patient presents with Follow-up HPI: The patient presents today for follow-up after undergoing RFA for his known history of long segment Viveros's. His last treatment was performed on 06/16/2024. At that time his [place] classification was C0-M3. He underwent treatment with [...] pleurisy, asthma, apnea) [x (more content not included)...[facility]06-11-2025 History of Present illness Narrative* Abbe Wood MD - 07/22/2024 8:44 AM EDT [facility] [address] (11) [facility] [address] [facility] [address] Ary Forde is a 74 y.o. male being seen on 07/22/24 for Chief Complaint Patient presents with Follow-up HPI: The patient presents today for follow-up after undergoing RFA for his known history of long segmentBarrett's. His last treatment was performed on 06/16/2024. At that time his [place] classification wasC0-M3. He underwent treatment with the Barrx 360 [...] lysis of adhesions and santos fundoplication ROBOTIC XI;Surgeon: Abbe Wood MD; Location: Main OR; Service: [...] esophagoscopy with possible RFA versus surveillance biopsies Abbe Wood MD [1] No Known Allergies [2] [...] total) by mouth 2 (two) times a day. 180 capsule 3 sucralfate (CARAFATE) 1 gram [...] week Drug use: Never documented in this [id number] NoteProgress Notes Abbe Wood MD (Physician) General Surgery Expand All Collapse All [facility] [address] (11) [facility] [address] [facility] [phone] Ary Forde is a 74 y.o. male being seen on 04/29/24 for Chief Complaint Patient presents with Follow-up ESOPHAGOSCOPY WITH RFA HPI: The patient presents today to schedule his next RFA. He has been undergoing treatment for a long segment Viveros's. He is previously undergone a Santos fundoplication. His last treatment was on 04/14/2024. At that time his [place] classification was C1-M7. He did reasonably well [...] 10-20 mg per (more content not included)... Morena [id number] NoteOPG [address] (11) [facility] [address] [facility] [address] Ary Forde is a 74 y.o. male being seen on 04/29/24 for Chief Complaint Patient presents with Follow-up ESOPHAGOSCOPY WITH RFA HPI: The patient presents today to schedule his next RFA. He has been undergoing treatment for a long segment Viveros's. He is previously undergone a Santos fundoplication. His last treatment was on 04/14/2024. At that time his [place] classification was C1-M7. He did reasonably well after ablation with only minimal discomfort for couple of days. 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 2017 Chau GERD (gastroesophageal reflux disease) Hiatal hernia 07/31/2022 small type-I sliding Hypercholesteremia Hypertension PONV (postoperative nausea and vomiting) Past Surgical History: Procedure Laterality Date ABDOMINAL HERNIA REPAIR 02/26/2014 EGD N/A 04/04/2020 Procedure: ESOPHAGOGASTRODUODENOSCOPY; Surgeon: Abbe Wood MD; Location: Main OR; Service: Gen-Robotics EGD N/A 12/15/2020 Procedure: ESOPHAGOGASTRODUODENOSCOPY WITH BIOPSY; Surgeon: Abbe Wood MD; Location: [facility]; Service: General Surgery EGD N/A 12/27/2020 Procedure: [...] N/A 07/18/2021 Procedure: ESOPHAGOSCOPY WITH RFA; Surgeon: bAbe Wood [...] intol, polyuria[DM]) [x] Hem/Lym (more content not included)...[facility] [id number] History of Present illness Narrative* Abbe Wood MD - 04/29/2024 11:20 AM EDT [facility] [address] (11) [facility] [address] [facility] [address] Ary Forde is a 74 y.o. male being seen on 04/29/24 for Chief Complaint Patient presents with Follow-up ESOPHAGOSCOPY WITH RFA HPI: The patient presents today to schedule his next RFA. He has been undergoing treatment for a long segment Viveros's. He is previously undergone a Santos fundoplication. His last treatment was on 04/14/2024. At that time his [place] classification was C1-M7. He did reasonably well [...] lysis of adhesions and santos fundoplication ROBOTIC XI;Surgeon: Abbe Wood MD; Location: Main OR; Service: [...] total) by mouth 2 (two) times a day. 180 capsule 3 sucralfate (CARAFATE) 1 gram [...] week Drug use: Never documented in this [id number] NoteOPG [address] (11) [facility] [address] [facility] [id number] Ary Forde is a 73 y.o. male [...] his are getting ready to leave for [place] for 2 months. Past Medical History: Diagnosis [...] Never Smokeless tobacco: Never (more content not included)...[facility] 01-29-2024 History of Present illness Narrative* Abbe Wood MD - 01/29/2024 8:11 AM EST [facility] [address] (11) [facility] [address] [facility] [address] Ary Forde is a 73 [...] his are getting ready to leave for [place] for 2months. 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 180 capsule 3 sucralfate (CARAFATE) 1 gram [...] 2024. Risk, benefits, and alternatives were discussed withthe patient in detail prior to obtaining consent. Abbe Wood MD documented in this [id number] NoteOPG [address] (11) [facility] [address] [facility] [id number] Ary Forde is a 73 y.o. male being seen on 08/14/23 for Chief Complaint Patient presents with Follow-up Long segment Viveros's esophagus, RFA HPI: The patient presents today for follow-up after his most recent RFA. He has a known history of long segment Viveros's and has previously undergone fundoplication. His last RFA was on 07/09/2023. At that time his [place] classification was C0-M5. There was mainly spotty [...] g total) by mout (more content not included)...[facility]07-03-2024 History of Present illness Narrative* Abbe Wood MD - 08/14/2023 8:19 AM EDT [facility] [address] [facility] [address] [facility] [id number] Ary Forde is a 73 y.o. male being seen on 08/14/23 for Chief Complaint Patient presents with Follow-up Long segment Viveros's esophagus, RFA HPI: The patient presents today for follow-up after his most recent RFA. He has a known history of long segment Viveros's and has previously undergone fundoplication. His last RFA was on 07/09/2023. At that time his [place] classification was C0-M5. There was mainly spotty [...] lysis of adhesions and santos fundoplication ROBOTIC XI;Surgeon: Abbe Wood MD; Location: Main OR; Service: [...] total) by mouth 2 (two) times a day. 60 capsule 3 sucralfate (CARAFATE) 1 gram [...] consent. Abbe Wood MD documented in this [id number] History of Present illness Narrative* Abbe Wood MD - 05/22/2023 8:25 AM EDT [facility] [address] ([address]) [facility] [address] [facility] [id number] Ary Forde is a 73 [...] lysis of adhesions and santos fundoplication ROBOTIC XI;Surgeon: Abbe Wood MD; Location: Main OR; Service: [...] total) by mouth 2 (two) times a day. 60 capsule 3 sucralfate (CARAFATE) 1 gram [...] consent. Abbe Wood MD documented in this [id number] History of Present illness Narrative* Abbe Wood MD - 12/05/2022 8:19 AM EDT [facility] [address] ([address]) [facility] [address] [facility] [id number] Ary Forde is a 72 y.o. male [...] from LINX sphincter augmentation to Santos fundoplication alongwith repair of his recurrent hiatal hernia. His last treatment was on 10/16/2022. At that time his [place] classification was C1-M5. He did well after treatment. He denies meaningful heartburn, regurgitation, or esophageal dysphagia. He did have retained gastric contents in his last EGD. He denies sign ificant bloating as long as he takes his time when he eats. He and his are planning to go to [place] after 2022 and will return in early [...] lysis of adhesions and santos fundoplication ROBOTIC XI;Surgeon: Abbe Wood MD; Location: Main OR; Service: [...] total) by mouth 2 (two) times a day. 60 capsule 3 sucralfate (CARAFATE) 1 gram [...] procedure. Abbe Wood MD documented in this [id number] History of Present illness Narrative* Abbe Wood MD - 12/05/2022 8:19 AM EDT [facility] [address] ([address]) [facility] [address] [facility] [id number] Ary Forde is a 72 [...] from LINX sphincter augmentation to Santos fundoplication alongwith repair of his recurrent hiatal hernia. His last treatment was on 10/16/2022. At that time his [place] classification was C1-M5. He did well after treatment. He denies meaningful heartburn, regurgitation, or esophageal dysphagia. He did have retained gastric contents in his last EGD. He denies sign ificant bloating as long as he takes his time when he eats. He and his are planning to go to [place] after 2022 and will return in early [...] lysis of adhesions and santos fundoplication ROBOTIC XI;Surgeon: Abbe Wood MD; Location: Main OR; Service: [...] total) by mouth 2 (two) times a day. 60 capsule 3 sucralfate (CARAFATE) 1 gram [...] procedure. Abbe Wood MD documented in this [id number] History of Present illness Narrative* Abbe Wood MD - 09/13/2022 8:33 AM EDT [facility] [address] ([address]) [facility] [address] [facility] [address] [facility] [id number] Ary Forde is a 72 y.o. male being seen on 09/13/22 for Chief Complaint Patient presents with Follow-up Viveros's esophagus HPI: The patient presents today to schedule his next RFA. He has a known history of long segment Viveros's. He has undergone multiple RFA treatments. On 04/04/2020 he underwent a robotic assisted laparoscopic hiatal hernia repair with mesh and link sphincter augmentation. He had a recurrent hernia and on10/09/2021 underwent conversion from lung sphincter augmentation to Santos fundoplication along with a redo pair of his recurrent hiatal hernia. His last treatment was on 07/31/2022. At that time he was treated with a Barrx 360 express catheter and balloon based endoscopic ablation system. His [place] at that time was C1-M5. He did have evidence of a small type I recurrent hiatal hernia. He has done well since therapy. He is currently on Prilosec 40 mg p.o. twice daily for symptom ma nagement. Past Medical History: Diagnosis Date Atrial fibrillation [...] lysis of adhesions and santos fundoplication ROBOTIC XI;Surgeon: Abbe Wood MD; Location: Main OR; Service: [...] total) by mouth 2 (two) times a day. 60 capsule 3 sucralfate (Carafate) 100 mg/mL [...] consent. Abbe Wood MD documented in this [id number] History of Present illness Narrative* Abbe Wood MD - 02/07/2022 8:22 AM EST [facility] [address] ([address]) [facility] [address] [facility] [id number] Ary Forde is a 71 y.o. male [...] RFA on 12/14/2021. At that time his [place] classification wasC2-M8. He underwent treatment with the Barrx 360 express catheter and balloon based endoscopic ablation system. The patient is leaving next week for [place] and will be gone for 2 months. 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 Abbe Wood MD documented in this [id number] History of Present illness Narrative* Abbe Wood MD - 11/23/2021 8:13 AM EDT [facility] [address] ([address]) [facility] [address] [facility] [phone] Ary Forde is a 71 [...] has been able to put some weight backon over the past few weeks. 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 Abbe Wood MD documented in this [id number] History of Present illness Narrative* Alvin Ochoa CNP - 10/24/2021 8:56 AM EDT [facility] [place] [facility] PATIENT: Ary Forde DATE / TIME: 10/24/21 [...] been undergoing RFA treatments but treatments stalled sec ondary to disrupted Santos and recurrent hiatal hernia. His last [place] classification was given C10-M10, His last RFA [...] and redo Santos fundoplication PLAN: Diet per [facility] protocol Continue lifting restrictions Katey removed Schedule esophagoscopy with RFA Follow up with Dr. Wood in 4 weeks documented in this [id number] History of Present illness Narrative* Abbe Wood MD - 08/16/2021 8:24 AM EDT [facility] [address] ([address]) [facility] [address] [facility] [phone] Ary Forde is a 71 y.o. male [...] was on 07/18/2021. At that time his [place] classification was C6-M7. He underwent treatment with the Barrx 360 express catheter and balloon based endoscopic ablation system. He has very infrequent heartburn. He denies significant regurgitation. He does have some esophageal dysphagia. He avoids greasy foods because they are very difficult to get down. 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 2017 GERD (gastroesophageal reflux disease) Hiatal hernia 12/15/2020 [...] lysis of adhesions and santos fundoplication ROBOTIC XI;Surgeon: Abbe Wood MD; Location: Main OR; Service: [...] consent Abbe Wood MD documented in this [id number] History of Present illness Narrative* Mayuri Ramirez RN - 07/18/2021 9:45 AM EDT Prior auth completed for carafate suspension at this time via cover my meds documented in this [id number] History of Present illness Narrative* Abbe Wood MD - 05/17/2021 1:00 PM EDT [facility] [address] ([address]) [facility] [address] [facility] [phone] Ary Forde is a 71 [...] found to have Viveros's esophagus with a [place] classification of C5-M12. There was also evidence of slipped Santos with recurrent hiatal hernia. Biopsies revealed Viveros's indeterminate for dysplasia. He underwent repeat EGD with biopsy on 12/27/2020. Biopsies again came back indeterminate for dysplasia. On 01/02/2021 he underwent RFA. On 05/01/2021 he returned for a second RFA treatment. At that time his [place] classification was noted to be C 10-M10. He again underwent treatment with the Barrx-360 express balloon catheter system. He returns today for follow- up. He says that his swallowing has improved. He also tells me that he has had significantly less secretions and phlegm since the most recent treatment. There was increased overall amount of Viveros's noted on the most recent scope. 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 He does have a recurrent hiatal hernia [...] RFA. Abbe Wood MD documented in this [id number] History of Present illness Narrative* Abbe Wood MD - 02/08/2021 8:22 AM EST [facility] PATIENT: Ary Forde DATE / TIME: 02/08/21 [...] visible evidence of intestinal metaplasia with a [place] classification of C5 M12. Biopsies showed Viveros's esophagus indeterminate for dysplasia. He also had a small recurrent sliding hiatal hernia. Repeat endoscopy with biopsy on 12/27/2020 again showed Viveros'sesophagus indeterminate for dysplasia. Based on these findings, the patient underwent the above-stated RFA. OBJECTIVE: BP (!) 149/92 Pulse 94 Ht 6' Wt 87.7 kg (193 lb 4.8 oz) SpO2 98% BMI 26.22 kg/m ASSESSMENT: Recurrent hiatal hernia status Santos post fundoplication, long segment Viveros's indeterminate fordysplasia status post initial RFA PLAN: 1. The patient will be due for another RFA treatmen on 03/04/2021. [place] will [place] in [place] at[place] time and wants to delay his next treatment until the end of April. I did discuss the potentialdownside to delaying treatment. The patient expressed understanding but still wants to wait until he gets back from [place] at the end of April 2021. documented in this [id number] History of Present illness Narrative* Abbe Wood MD - 10/21/2020 8:27 AM EDT [facility] [address] ([address]) [facility] [address] [facility] [phone] Ary Forde is a 70 y.o. male [...] with mesh and Santos fundoplication on 04/04/2020. Overallhe has done well since surgery. He experienced [...] lysis of adhesions and santos fundoplication ROBOTIC XI;Surgeon: Abbe Wood MD; Location: Main OR; Service: [...] Biopsy Abbe Wood MD documented in this [id number] History of Present illness Narrative* Abbe Wood MD - 10/21/2020 8:27 AM EDT [facility] [address] ([address]) [facility] [address] [facility] [phone] Ary Forde is a 70 y.o. male [...] with mesh and Santos fundoplication on 04/04/2020. Overallhe has done well since surgery. He experienced [...] lysis of adhesions and santos fundoplication ROBOTIC XI;Surgeon: Abbe Wood MD; Location: Main OR; Service: [...] Biopsy Abbe Wood MD [facility] Diagnosis History of Viveros's esophagus- Primary Status post laparoscopic Santos fundoplication History of Viveros's esophagus Status post laparoscopic Santos fundoplication History of Viveros's esophagus Status post laparoscopic Santos fundoplication [facility] Diagnosis History of Viveros's esophagus Status post laparoscopic Santos fundoplication Elective surgery- Primary History of Viveros's esophagus Status post laparoscopic Santos fundoplication [facility] Diagnosis History of Viveros's esophagus- Primary Status post laparoscopic Santos fundoplication History of Viveros's esophagus Status post laparoscopic Santos fundoplication History of Viveros's esophagus Status post laparoscopic Santos fundoplication [facility] Diagnosis History of Viveros's esophagus- Primary Paraesophageal hiatal hernia [facility]* Diagnosis History of Viveros's esophagus Paraesophageal hiatal hernia Elective surgery- Primary Elective surgery- Primary Elective surgery History of Viveros's esophagus Paraesophageal hiatal hernia [facility]* Diagnosis History of Viveros's esophagus Paraesophageal hiatal hernia History of Viveros's esophagus- Primary History of Viveros's esophagus [facility]* Diagnosis Viveros's esophagus with dysplasia [facility]* Diagnosis Viveros's esophagus with dysplasia- Primary Status post laparoscopic Santos fundoplication Hiatal hernia Diaphragmatic hernia without mention of obstruction or gangrene Viveros's esophagus with dysplasia Status post laparoscopic Santos fundoplication Hiatal hernia Diaphragmatic hernia without mention of obstruction or gangrene [facility]* Diagnosis Viveros's esophagus with dysplasia- Primary Status post laparoscopic Santos fundoplication Slipped Santos fundoplication Hiatal hernia Diaphragmatic hernia without mention of obstruction or gangrene Slipped Santos fundoplication Viveros's esophagus with dysplasia Status post laparoscopic Santos fundoplication Slipped Santos fundoplication Hiatal hernia Diaphragmatic hernia without mention of obstruction or gangrene [facility] noteNo assessment information availableWKettering Health Hamilton Work Phone: evaluation note* Diagnosis Onset Date Resolution Status Essential hypertension acute [facility] Work Phone: Evaluation note* Diagnosis Viveros's esophagus with dysplasia- Primary Viveros's esophagus with dysplasia [facility] Diagnosis Viveros's esophagus with dysplasia- Primary Status post laparoscopic Santos fundoplication Slipped Santos fundoplication [facility]* Diagnosis Encounter for surgical aftercare following surgery of digestive system- Primary [facility] Diagnosis Viveros's esophagus with dysplasia- Primary [facility]* Diagnosis Status post laparoscopic Santos fundoplication- Primary Viveros's esophagus with dysplasia [facility] Diagnosis Viveros's esophagus with dysplasia- Primary Status post laparoscopic Santos fundoplication [facility]* Diagnosis Viveros's esophagus with dysplasia- Primary Status post laparoscopic Santos fundoplication [facility]* Diagnosis Viveros's esophagus with dysplasia- Primary Status post laparoscopic Santos fundoplication Status post laparoscopic Santos fundoplication [facility]* Diagnosis Viveros's esophagus with dysplasia- Primary Status post laparoscopic Santos fundoplication Status post laparoscopic Santos fundoplication Viveros's esophagus with dysplasia Status post laparoscopic Santos fundoplication [facility] Diagnosis Viveros's esophagus with dysplasia- Primary Status post laparoscopic Santos fundoplication 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 Status post laparoscopic Santos fundoplication [facility]* Diagnosis Long-segment Viveros's esophagus- Primary Status post laparoscopic Santos fundoplication [facility]* Diagnosis Long-segment Viveros's esophagus- Primary Status post laparoscopic Santos fundoplication Status post laparoscopic Santos fundoplication [facility]* Diagnosis Long-segment Viveros's esophagus- Primary Long-segment Viveros's esophagus [facility]* Diagnosis Long-segment Viveros's esophagus- Primary Status post laparoscopic Santos fundoplication 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 Status post laparoscopic Santos fundoplication Viveros's esophagus with dysplasia documented in this encounter [facility] note* Diagnosis Long-segment Viveros's esophagus- Primary Status post laparoscopic Santos fundoplication 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 Status post laparoscopic Santos fundoplication Viveros's esophagus with dysplasia documented in this encounter [facility] note* Diagnosis Pre-op examination- Primary [...] esophagus with dysplasia documented in this encounter [facility] note* Diagnosis Pre-op examination- Primary [...] esophagus with dysplasia documented in this encounter [facility] note* Diagnosis Pre-op examination- Primary [...] laparoscopic Santos fundoplication [facility]* Diagnosis Onset Date Resolution Status Admit Date Lung mass acute September 22, 025 7:59am Pleural effusion on left acute September 22, 2024 7:59am Shortness of breath acute Augus t 2024 7:59am [facility] Work Phone: Hospital Discharge instructionsAdditional Instructions Not specifically sure what caused the chest pain. It could be from esophageal spasm but there is no way to diagnose that in the ER. It could be from the pleural effusion the fluid that is along the left side of your lung. There is no signs of a heart attack. No signs of a blood clot. Call and follow-up with Dr. Schumacher regarding further evaluation of the left pleural effusion. Continue your reflux medication. 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 Advance Directives and Livin g Will 03/21/2020 12:42 PM Documents on File Type Date Recorded Patient Orchestra Leader Expl anation Advance Directives and Livin g Will 04/04/2020 12:42 PM Latest Code Status on File Code Status Date Activated Date Inactivated Comments Full Code 04/04/2020 1:51 PM 04/05/2020 3:26 PM Documents on File Type Date Recorded Patient Orchestra Leader Expl anation Advance Directives and Livin g Will 04/04/2020 12:42 PM Latest Code Status on File Code Status Date Activated Date Inactivated Comments Full Code 04/04/2020 1:51 PM 04/05/2020 3:26 PM Documents on File Type Date Recorded Patient Orchestra Leader Expl anation Advance Directives and Livin g Will 12/15/2020 11:21 AM Documents on File Type Date Recorded Patient Orchestra Leader Expl anation Advance Directives and Livin g Will 12/19/2020 11:21 AM Documents on File Type Date Recorded Patient Orchestra Leader Expl anation Advance Directives and Livin g Will 12/27/2020 11:04 AM Advance Directive Response Recorded Date/ Time Advance Directives Yes February 18, 2014 11:33am Living Will Yes January 29 11:11am Power of Art History Professor Yes January 29, 2017 11:11am Documents on File Type Date Recorded Patient Orchestra Leader Expl anation Advance Directives and Livin g [...] Will Yes December 15 8:42am Power of Art History Professor Yes December 15, 2021 8:42am Date Activated Date Inactivated Comments 04/04/2020 1:51 PM 04/05/2020 3:26 PM Advance Directive Response Recorded Date/ Time Do you have a Healthcare Power of Art History Professor? Yes September 19, 2024 12:32pm Advance Directives Yes December 15, 2021 9:42am History of Present Illness * Alvin Ochoa, BANK ADVISOR - 01/05/2020 9:41 AM EST [facility] [address] ([address]) [facility] [address] [facility] [phone] Patient Name: Ary Forde Age: 69 y.o. Gender: male Referring Physician: Arabella Oden DO Chief Complaint Patient presents with [...] that while we practice appropriate precautions consistent withprev[facility] medical standards, any contact with any person [...] Ochoa CNP - 04/05/2020 6:54 AM EST [facility] [place] PATIENT: Ary Forde DATE / TIME: 04/05/20 [...] Wood MD - 04/20/2020 8:48 AM EST [facility] [place] PATIENT: Ary Forde DATE / TIME: 04/20/20 [...] nondistended, nontender. Incisions healing with katey present. Katey removed in the office today. ASSESSMENT: Postop [...] Chief Complaint PULSE IRREGULARITY CLEARANCE FOR CDL/POSSIBLE AFIB(TOMCHAK) ARRYHTHMIA Reason for Visit Essential hypertensi on Chief Complaint Admit Date chest pain September 19, 2024 12: 26pm Chief Complaint Admit Date chest pain September 19, 2024 12: 26pm Lung Mass September 22, 2024 7: 59am Reason for Visit Admit Date Lung mass September 22, 2024 7: 59am Pleural effusion on left September 22 7:59am Shortness of breath September 22, 2024 7: 59am Additional Source Comments (unrecognized sect ion and content) No Status Records FoundNo Status Records FoundNo Status Records FoundNo Status Records FoundNo Status Records FoundNo Status Records FoundNo Status Records FoundNo Status Records Found INFORMATION SOURCE (unrecogn ized section and content) DATE CREATED AUTHOR 06/22/2018 [facility] DATE CREATED AUTHOR AUTHOR'S ORGANIZ ATION 03/18/2019 [employer] DATE CREATED AUTHOR AUTHOR'S ORGANIZ ATION 12/23/2019 [facility] DATE CREATED AUTHOR AUTHOR'S ORGANIZ ATION 12/27/2019 [facility] DATE CREATED AUTHOR AUTHOR'S ORGANIZ ATION 07/14/2021 [facility] DATE CREATED AUTHOR AUTHOR'S ORGANIZ ATION 07/24/2024 [facility] DATE CREATED AUTHOR AUTHOR'S ORGANIZ ATION 07/26/2024 [facility] DATE CREATED AUTHOR AUTHOR'S ORGANIZ ATION 09/27/2024 [facility] Reason for Visit (unrecogniz ed section and content) Reason Comments Consult to repair hiatal her santos Status Reason Specialty Diagnoses / Procedures Referred By Contact Referred To Contact Closed General Surgery Diagnoses Viveros's esophagus with dysplasia Large hiatal hernia Arabella Oden, DO [address] [place] [address] Abbe Wood MD [address] [facility] [address] [place] [address] Status Reason Specialty Diagnoses / Procedures Re ferred By Contact Referred To Contact Diagnoses 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] Procedures OR LAP, REPAIR PARAESOPHAGEAL HERNIA, INCL FUNDOPLASTY W/O MESH OR LAPS ESOPHGL SPHNCTR AGMNTJ PLMT DEV CRRPL OR PROSTHETIC IMPLANT NOS Abbe Wood MD [address] [facility] [address] [place] [address] Reason Comments Follow-up hiatal hernia repair with [...] Abbe Lee MD - 04/04/2020 10:32 AM Abbe Matamoros MD - 04/04/2020 10:30 AM EST H&P Notes (unrecognized sect ion and content) INTERVAL HISTORY AND PHYSICAL Patient Name: Ary Forde Admit Date: [id number] MR #: [id number] : 1950 The H&P has been reviewed [...] ABDOMINAL HERNIA REPAIR 02/26/2014 ESOPHAGOGASTRODUODENOSCOPY 11/25/2017 Viveros's esophagus.....Thompollo ESOPHAGOGASTRODUODENOSCOPY 12/21/2019 [place] HERNIA REPAIR Right 1998 Inguinal with mesh [...] MD documented in this encounter Plan of Porsha Mayer RN - 04/05/2020 12:49 PM ESTPlan of [...] [K22.70] Post-operative Diagnosis: same Surgeon: Abbe Wood Supply Specialist: Alvin Ochoa CNP The BANK ADVISOR was present for the entire case and provided critical assistance with the technical aspects of the operation. Procedure and Anesthesia: Procedure(s) and Anesthesia Type: * REPAIR HERNIA HIATAL WITH MESH AND SANTOS FUNDOPLICATION ROBOTIC XI - General * ESOPHAGOGASTRODUODENOSCOPY - General CPT Code: 89850, 80228 EBL 25 ml Complications:None Drains: None Dispo: [...] esophagus had visible Viveros's esophagus with a [place] classification of C6 M6. The top of [...] blunt dissection and the vessel sealer. A [place] drain was then placed around the esophagus [...] deflated to 10 mL and removed. The [place] was removed from around the esophagus. The [...] Care Teams (unrecognized sec tion and content) Voip Network Engineer Relationship Specialty Start Date End Date Dago Mcnamara MD [address] [place] [address] PCP - General Family Medicine 12/30/19 Dago Mcnamara MD [address] [place] [address] Referring Physician Family Medicine 12/30/19 Voip Network Engineer Relationship Specialty Start Date End Date Dago Mcnamara MD [address] [place] [address] PCP - General Family Medicine 12/30/19 Dago Mcnamara MD [address] [place] [address] Referring Physician Family Medicine 12/30/19 Voip Network Engineer Relationship Specialty Start Date End Date Dago Mcnamara MD [address] [place] [address] PCP - General Family Medicine 12/30/19 Dago Mcnamara MD [address] [place] [address] Referring Physician Family Medicine 12/30/19 Voip Network Engineer Relationship Specialty Start Date End Date Dago Mcnamara MD [address] [place] [address] PCP - General Family Medicine 12/30/19 Dago Mcnamara MD [address] [place] [address] Referring Physician Family Medicine 12/30/19 Voip Network Engineer Relationship Specialty Start Date End Date Dago Mcnamara MD [address] [place] [address] PCP - General Family Medicine 12/30/19 Dago Mcnamara MD [address] [place] [address] Referring Physician Family Medicine 12/30/19 Voip Network Engineer Relationship Specialty Start Date End Date Dago Mcnamara MD [address] [place] [address] PCP - General Family Medicine 12/30/19 Dago Mcnamara MD [address] [place] [address] Referring Physician Family Medicine 12/30/19 Voip Network Engineer Relationship Specialty Start Date End Date Dago Mcnamara MD [address] [place] [address] PCP - General Family Medicine 12/30/19 Dago Mcnamara MD [address] [place] [address] Referring Physician Family Medicine 12/30/19 Voip Network Engineer Relationship Specialty Start Date End Date Dago Mcnamara MD [address] [place] [address] PCP - General Family Medicine 12/30/19 Dago Mcnamara MD [address] [place] [address] Referring Physician Family Medicine 12/30/19 Voip Network Engineer Relationship Specialty Start Date End Date Dago Mcnamara MD [address] [place] [address] PCP - General Family Medicine 12/30/19 Dago Mcnamara MD [address] [place] [address] Referring Physician Family Medicine 12/30/19 Voip Network Engineer Relationship Specialty Start Date End Date Dago Mcnamara MD [address] [place] [address] PCP - General Family Medicine 12/30/19 Dago Mcnamara MD [address] [place] [address] Referring Physician Family Medicine 12/30/19 Voip Network Engineer Relationship Specialty Start Date End Date Dago Mcnamara MD [address] [place] [address] PCP - General Family Medicine 12/30/19 Dago Mcnamara MD [address] [place] [address] Referring Physician Family Medicine 12/30/19 Voip Network Engineer Relationship Specialty Start Date End Date Dago Mcnamara MD [address] [place] [address] PCP - General Family Medicine 12/30/19 Dago Mcnamara MD [address] [place] [address] Referring Physician Family Medicine 12/30/19 Voip Network Engineer Relationship Specialty Start Date End Date Dago Mcnamara MD [address] [place] [address] PCP - General Family Medicine 12/30/19 Dago Mcnamara MD [address] [place] [address] Referring Physician Family Medicine 12/30/19 Voip Network Engineer Relationship Specialty Start Date End Date Dago Mcnamara MD [address] [place] [address] PCP - General Family Medicine 12/30/19 Dago Mcnamara MD [address] [place] [address] Referring Physician Family Medicine 12/30/19 Team Status: Active Member Role Status Dates Dr. Dago Mcnamara MD Family Provider Active Dr. Emanuel Aguilar DO Primary Care Provider Active Team Status: Inactive Member Role Status Dates Dr. Emanuel Aguilar DO Primary Care Provider, Attendin g Provider Active Voip Network Engineer Relationship Specialty Start Date End Date Dago Mcnamara MD [address] [place] [address] PCP - General Family Medicine 12/30/19 Dago Mcnamara MD [address] [place] [address] Referring Physician Family Medicine 12/30/19 Voip Network Engineer Relationship Specialty Start Date End Date Dago Mcnamara MD [address] [place] [address] PCP - General Family Medicine 12/30/19 Dago Mcnamara MD [address] [place] [address] Referring Physician Family Medicine 12/30/19 Voip Network Engineer Relationship Specialty Start Date End Date Dago Mcnamara MD [address] [place] [address] PCP - General Family Medicine 12/30/19 Dago Mcnamara MD [address] [place] [address] Referring Physician Family Medicine 12/30/19 Voip Network Engineer Relationship Specialty Start Date End Date Dago Mcnamara MD [address] [place] [address] PCP - General Family Medicine 12/30/19 Dago Mcnamara MD [address] [place] [address] Referring Physician Family Medicine 12/30/19 Voip Network Engineer Relationship Specialty Start Date End Date Dago Mcnamara MD [address] [place] [address] PCP - General Family Medicine 12/30/19 Dago Mcnamara MD [address] [place] [address] Referring Physician Family Medicine 12/30/19 Voip Network Engineer Relationship Specialty Start Date End Date Dago Mcnamara MD [address] [place] [address] PCP - General Family Medicine 12/30/19 Dago Mcnamara MD [address] [place] [address] Referring Physician Family Medicine 12/30/19 Voip Network Engineer Relationship Specialty Start Date End Date Emanuel Aguilar DO [address] [place] [address] [place] [address] PCP - General Family Medicine 06/16/24 Dago Mcnamara MD [address] [place] [address] Referring Physician Family Medicine 12/30/19 Team Status: Active Member Role/Relationship Status Dates Dr. Emanuel Aguilar DO Primary Care Provider Active Team Status: Inactive Member Role/Relationship Status Dates Dr. Emanuel Aguilar DO Primary Care Provider Active Start: September 19, 2024 End: September 19, 2024 Dr. Candido Rivera MD Emergency Provider Active S tart: September 19, 2024 End: September 19, 2024 Team Status: Inactive Member Role/Relationship Status Dates Dr. Emanuel Aguilar DO Primary Care Provider Active Start: September 22, 2024 End: September 22, 2024 Dr. Emanuel Aguilar DO Referring Provider Active Start: September 22, 2024 End: September 22, 2024 Adriana Lipscomb BROACH TROUBLE SHOOTER, BROACH TROUBLE SHOOTER-C Attending Provider Active Start: September 22, 2024 End: September 22, 2024 Goals (unrecognized section and content) Goals may [...] BE BASED ON THE PRIMARY CLINICAL RECORDS. [employer] provides no warranty or guarantee of the accuracy or completeness of information in this document.
[2024-09-28 08:25] VITALS: BP 126/70; PULSE 107; RESP 19; TEMP 36.5; O2SAT 95; BMI 23.0
--- NOTE | 2024-09-28 10:02 | US_ITS ---
PROCEDURE: THORACENTESIS W US 09/28/2024 REASON FOR EXAM: LEFT PLEURAL EFFUSION TECHNIQUE: THORACENTESIS W US COMPARISON: Chest CT of 09/28/2024. FINDINGS: Initial images show multiple loculated components of a large left pleural fluid collection. Procedure: Following informed consent, and using standard sterile technique, an ultrasound- guided left thoracentesis was performed via a posterior approach. 2% lidocaine local anesthesia was followed by placement of a 5 Pashto catheter into the left pleural fluid collection. Approximately 1340 mL lightly blood-tinged purulent appearing fluid was successfully removed. No complication was encountered, in the patient left the department in good condition without significant complaint US/Thoracentesis W US IMPRESSION: Successful diagnostic and therapeutic ultrasound-guided left thoracentesis. La boratory results pending. Repeat CT examination to follow. Reading Location: [place] [address]
[2024-09-28 10:15] VITALS: BP 108/73; PULSE 100; RESP 20; O2SAT 97
[2024-09-28] MEDS: Lidocaine 2% (20 ml mdv) 20 ML Vial INFILT (10:16)
[2024-09-28 10:30] VITALS: BP 97/72; PULSE 92; RESP 20; O2SAT 98
[2024-09-28 10:34] LABS: Cytology, Body Fluid / CSF SEE PATHOLOGY REPORT
[2024-09-28 10:45] VITALS: BP 112/67; PULSE 96; RESP 20; O2SAT 96
[2024-09-28 10:58] VITALS: BP 99/65; PULSE 91; RESP 20; O2SAT 97
--- NOTE | 2024-09-28 11:08 | CT_ITS ---
PROCEDURE: CHEST WITHOUT CONTRAST 09/28/2024 REASON FOR EXAM: S/P THORA TECHNIQUE: Chest CT without contrast. Coronal and Sagittal reconstruction series were provided. One or more dose reduction techniques were used (e.g., Automated exposure control, adjustment of the mA and/or kV according to patient size, use of iterative reconstruction technique. RADIATION DOSE SUMMARY: CTDlvol: 16.62 mGy DLP: 677.09 mGycm COMPARISON: Pre-procedure CT of 09/28/2024 and ultrasound-guided thoracentesis images of 09/28/2024. FINDINGS: A small pericardial effusion is again noted. A large multiloculated left pleural fluid collection is again seen, although clearly diminished from the preprocedure study of earlier the same day. No pneumothorax is noted. Areas of significant left lung atelectasis are noted, and cannot exclude the presence of areas of pneumonitis. No solid-appearing mass is clearly evident. No right pleural effusion is seen. The visualized upper abdomen shows no acute process. Prominent degenerative changes of the spine are also seen. CT/Chest without Contrast IMPRESSION: 1. Large multiloculated left pleural fluid collection, diminished since the pre ceding left thoracentesis. 2. Small pericardial effusion again noted. 3. No pneumothorax is noted. Reading Location: [place] [address]
[2024-09-28 12:04] LABS: LDH 162 U/L (87-241)
[2024-09-28 12:42] LABS: Body Fluid Mononuclear WBC % 76.6 %; Body Fluid Polynuclear WBC % 23.4 %; Red Cell Count/Body Fluid 0.160 10^6/ul; White Blood Count/Body Fluid 152.740 10^3/uL
[2024-09-28 12:45] LABS: Body Fluid Mononuclear WBC # 116.990 10^3/uL; Body Fluid Polynuclear WBC # 35.741 10^3/uL
[2024-09-28 12:52] LABS: Hematocrit 37.3 % (40-54); Hemoglobin 13.1 g/dL (13.0-16.5); Immature Granulocytes Count 0.570 X10^3/uL (0.0-0.0); Mean Corp Hgb Conc 35.1 g/dL (32-36); Mean Corpuscular Volume 84.0 fL (80-94); Mean Platelet Vol. 9.2 fl (6.2-12.0); NRBC Flagged by Analyzer 0 % (0-5); POSITIVE COUNT YES; POSITIVE DIFFERENTIAL YES; Platelet Count 443 K/mm3 (150-450); RBC Distribution Width CV 13.2 % (11.6-14.6); RBC Distribution Width SD 40.4 fl (35.1-43.9); Red Blood Count 4.44 M/mm3 (4.6-6.2)
[2024-09-28 12:53] LABS: Differential Indicated SCAN CRITERIA MET
[2024-09-28 12:57] LABS: Toxic Granulation 4+
[2024-09-28 13:33] LABS: White Blood Count 33.4 K/mm3 (4.4-11.0)
[2024-09-28 13:55] LABS: Auto B Fluid Analyzer BKGD Ct COUNTS W/IN LIMITS (W/IN LIMITS); Source- Body Fluid THORACENTESIS
[2024-09-28 13:56] LABS: Appearance/Body Fluid TURBID
[2024-09-28 15:27] LABS: Body Fluid QC Type(s) BF1
[2024-09-28 16:12] LABS: Pathologist Comment/Body Fluid Reviewed
== END | disposition home or self-care (01) ==
PROVIDERS: Radiology Nuclear Radiology; PCP Family Medicine; Referring Provider Nurse Practitioner Acute Care; Visit Provider Nurse Practitioner Acute Care
DX: J90 Pleural effusion, not elsewhere classified (principal); Z79.01 Long term (current) use of anticoagulants
CPT/HCPCS: 32555; 71250; 83615; 84155; 84157; 85025; 87070; 87075; 87077; 87205; 88108; 88305; 88313; 89050

== ENCOUNTER → 2024-10-16 | Outpatient (CLI) | payer MEDICARE, SELFPAY ==
[2024-10-16 09:56] LABS: Anion Gap 13 (5-15); BUN 14 mg/dL (4-19); BUN/Creat Ratio 17.1 RATIO (10-20); Calcium,Total 8.8 mg/dL (7.6-11.0); Carbon Dioxide 24.5 mmol/L (21.0-32.0); Chloride 96 mmol/L (98-108); Glucose 117 mg/dL (70-99); Magnesium 2.3 mg/dL (1.5-2.2); Potassium 3.7 mmol/L (3.3-5.1)
[2024-10-16 10:30] LABS: Hematocrit 29.9 % (40-54); Hemoglobin 9.8 g/dL (13.0-16.5); Immature Granulocytes Count 0.050 X10^3/uL (0.0-0.0); Mean Corp Hgb Conc 32.8 g/dL (32-36); Mean Corpuscular Volume 90.1 fL (80-94); Mean Platelet Vol. 9.3 fl (6.2-12.0); NRBC Flagged by Analyzer 0 % (0-5); Platelet Count 512 K/mm3 (150-450); RBC Distribution Width CV 14.3 % (11.6-14.6); RBC Distribution Width SD 46.9 fl (35.1-43.9); Red Blood Count 3.32 M/mm3 (4.6-6.2); White Blood Count 8.0 K/mm3 (4.4-11.0)
== END | disposition home or self-care (01) ==
PROVIDERS: PCP Family Medicine; Referring Provider Family Medicine; Visit Provider Family Medicine
DX: E83.42 Hypomagnesemia (principal); I10 Essential (primary) hypertension; D64.9 Anemia, unspecified
CPT/HCPCS: 36415; 80048; 83735; 85025

== ENCOUNTER → 2024-11-05 | Outpatient (CLI) | payer MEDICARE, OTHER, SELFPAY ==
--- NOTE | 2024-11-05 07:48 | CT_ITS ---
PROCEDURE: CHEST WITHOUT CONTRAST 11/05/2024 REASON FOR EXAM: EMPYEMA TECHNIQUE: Chest CT without contrast. Coronal and Sagittal reconstruction series were provided. One or more dose reduction techniques were used (e.g., Automated exposure control, adjustment of the mA and/or kV according to patient size, use of iterative reconstruction technique RADIATION DOSE SUMMARY: CTDlvol: 11 mGy DLP: 416 mGycm COMPARISON: September 2024. FINDINGS: Thyroid gland: Negative. Lungs: Improved aeration left lung with diminished airspace disease in the left lung base. Pleura: Improvement left hydro pneumothorax. With near-complete resolution of air in the pleural space. Negative for pleural effusion or pneumothorax. Airways: Imaged bronchi and trachea otherwisenegative. Mediastinum: Negative for mediastinal mass. Lymph nodes: Negative for axillary, mediastinal or hilar adenopathy. Heart and Vasculature: Resolution pericardial fluid. Heart normal size. [id number] vascular calcifications of the thoracic aorta. Coronary Artery Calcifications: Severe vascular calcifications of the coronary arteries Upper Abdomen: Gallbladder contracted. Increased stool throughout the colon. Hardware: None. Bones: Age-appropriate degenerative changes of the thoracic spine. CT/Chest without Contrast IMPRESSION: Improved appearance left lung with diminished left-sided hydro pneumothorax and pleural thickening. Decreased left lung base airspace disease. Reading Location: [id number]
[2024-11-05 10:11] LABS: Hematocrit 34.3 % (40-54); Hemoglobin 10.8 g/dL (13.0-16.5); Immature Granulocytes Count 0.030 X10^3/uL (0.0-0.0); Mean Corp Hgb Conc 31.5 g/dL (32-36); Mean Corpuscular Volume 92.7 fL (80-94); Mean Platelet Vol. 9.3 fl (6.2-12.0); NRBC Flagged by Analyzer 0 % (0-5); Platelet Count 308 K/mm3 (150-450); RBC Distribution Width CV 15.3 % (11.6-14.6); RBC Distribution Width SD 52.4 fl (35.1-43.9); Red Blood Count 3.70 M/mm3 (4.6-6.2); White Blood Count 5.8 K/mm3 (4.4-11.0)
[2024-11-05 10:44] LABS: AST(SGOT) 24 U/L (<=37); Alanine Aminotransfer ALT/SGPT 16 U/L (<=46); Albumin, Serum 3.7 g/dL (3.4-4.8); Alkaline Phosphatase 91 U/L (40-129); Anion Gap 10 (5-15); BUN 11 mg/dL (4-19); BUN/Creat Ratio 19.6 RATIO (10-20); Bilirubin, Direct 0.12 mg/dL (0.00-0.30); Calcium,Total 9.0 mg/dL (7.6-11.0); Carbon Dioxide 23.9 mmol/L (21.0-32.0); Chloride 100 mmol/L (98-108); Globulin 4.3 g/dL (2.2-4.2); Glucose 106 mg/dL (70-99); Potassium 4.4 mmol/L (3.3-5.1)
== END | disposition home or self-care (01) ==
PROVIDERS: PCP Family Medicine
DX: J86.9 Pyothorax without fistula (principal); I48.0 Paroxysmal atrial fibrillation
CPT/HCPCS: 36415; 71250; 80048; 80076; 85025; 93225; 93226

== ENCOUNTER → 2024-12-21 | Outpatient (CLI) | payer MEDICARE, OTHER, SELFPAY ==
--- OUTSIDE RECORDS SUMMARY | 2024-12-21 06:40 | XMS RPT_ITS | CCD ---
Author Organization [facility] Care Team Providers Care Soap Tender Name Role Phone Arabella Oden Attending Unavailable Self Referral, Patient Referring Unavailab Dago Weaver Primary Care Unavailable Arabella Oden Admitting Unavailable Lb Lyle Admitting Unavailable Lb Lyle Attending Unavailable Dago Mcnamara Primary Care Unavailable Dago Mcnamara Primary Care Provider Dago Mcnamara Unavailable Dago Mcnamara MD Primary Care Provider [phone] Dago Mcnamara MD Unavailable Dago Mcnamara MD Unavailable Dr. Dago Mcnamara Primary Care Provider Dr. Dago Mcnamara Referring Provider Dr. Arnaud Morrow Attending Provider Dago Mcnamara MD Primary Care Provider [phone] Dago Mcnamara MD Unavailable [phone] CINDI OCHOA Referring Unavailable CINDI OCHOA Admitting Unavailable DAGO MCNAMARA Primary Care Unavailable Dago Mcnamara MD Primary Care Provider Dago Mcnamara MD Unavailable Emanuel Garland DO Primary Care Provider [phone] DAGO MCNAMARA Primary Care Unavailable ABBE WOOD Attending Unavailable ABBE WOOD Attending Unavailable DAGO MCNAMARA Primary Care Unavailable ABBE WOOD Attending Unavailable DAGO MCNAMARA Primary Care Unavailable ABBE WOOD Attending Unavailable EMANUEL GARLAND Primary Care Unavailable Dr. Emanuel Garland DO Primary Care Provider Dr. Candido Rivera MD Emergency Provider Dr. Emanuel Garland DO Referring Provider Deisi SHEAR GRINDER OPERATOR HELPER-C, Adriana Attending Provider Miguel HURLEY, Dr. Rey Attending Provider Deisi SHEAR GRINDER OPERATOR HELPER-C, Adriana Referring Provider Saadia FRANCE, Dr. Dixon Emergency Provider [phone] Emanuel Garland DO Primary Care Provider [facility] Unavailable [phone] [facility], Lb Nolan Unavailable Un available Toni HURLEY, Solitario Lyles Unavailable [phone] Delfina THAKKAR, Priscila Unavailable Unavailable Jonathan RN, Beatriz Unavailable Unavailable Emanuel Garland DO Primary Care Provider [facility] Unavailable [facility], [facility] Nolan Unavailable Un available Toni HURLEY, Solitario Lyles Unavailable Delfina RN, Priscila Unavailable Unavailable Jonathan RN, Beatriz Unavailable Unavailable Toni HURLEY, Solitario Lyles Unavailable Jonathan RN, Beatriz Unavailable Unavailable Dr. Zack Turner DO Attending Provider Dr. Emanuel Garland DO Attending Provider Dr. Daniel Garland MD Referring Provider Adolfo Victoria Attending Provider Dr. Emanuel Garland DO Primary Care Physician [phone] Dr. Candido Rivera MD Attending Physician Dr. Candido Rivera MD Emergency Department Physici an Deisi SHEAR GRINDER OPERATOR HELPER-C, Adriana Attending Physician Dr. Zack Turner DO Attending Physician Dr. Zack Turner DO Emergency Department Physician Dr. Emanuel Garland DO Attending Physician Adolfo Victoria Attending Physician [phone] MICHELE THOMPSON Attending Physician MICHELE THOMPSON Referring Provider Adolfo Victoria Nurse Practitioner Cristhian HURLEY, Dr. Lares Attending Physician Adolfo Victoria Referring Provider MARIA DEL ROSARIO SUAREZ Attending Unavailable MARIA DEL ROSARIO SUAREZ Referring Unavailable GILLEMANUEL GOLDSTEIN Primary Care Unavailable SOLITARIO ARGUELLES Referring Unavailable GILLEMANUEL GOLDSTEIN A Primary Care Unavailable SOLITARIO ARGUELLES Attending Unavailable OSITO SALINAS Referring Unavailable ELDA PETERSON Attending Unavailable GILLEMANUEL GOLDSTEIN A Primary Care Unavailable OSITO SALINAS Attending Unavailable GILLEMANUEL GOLDSTEIN A Primary Care Unavailable GILLEMANUEL A Referring Unavailable ZACK TURNER Referring Unavailable OSITO SALINAS Attending Unavailable MERYL ZENDEJAS Admitting Unavailable CONSULT, SURGERY - THORACIC Consulting Unav ailable ISRAEL, ABBE RAY Attending Unavailable ISRAEL, ABBE RAY Admitting Unavailable DAGO MCNAMARA Primary Care Unavailable ISRAEL, ABBE RAY Attending Unavailable ISRAEL, ABBE RAY Admitting Unavailable DAGO MCNAMARA Primary Care Unavailable ISRAEL, ABBE RAY Attending Unavailable EMANUEL GARLAND Primary Care Unavailable ISRAEL, ABBE RAY Admitting Unavailable ISRAEL, ABBE RAY Attending Unavailable ISRAEL, ABBE RAY Admitting Unavailable GILLEMANUEL Primary Care Unavailable GillEmanuel goldstein Referring Unavailable Adolfo Garcia Attending Unavailable Gill, Emanuel Primary Care Unavailable Gill, Emanuel Primary Care Unavailable Candido Rivera Attending Unavailable Romaineiter Adolfo Referring Unavailable DemAdolfo meyers Attending Unavailable Gill, Emanuel Primary Care Unavailable ISHAN MICHEL Attending Unavailable Gill, Emanuel Primary Care Unavailable ISHAN MICHEL Attending Unavailable Gill, Emanuel Primary Care Unavailable ISHAN MICHEL Referring Unavailable Gill, Emanuel Referring Unavailable GillEmanuel Attending Unavailable Gill, Emanuel Primary Care Unavailable Gill, Emanuel Primary Care Unavailable Gill, Emanuel Attending Unavailable Gill, Emanuel Primary Care Unavailable Lipscomb SHEAR GRINDER OPERATOR HELPER, Adriana Attending Unavailable Lipscomb SHEAR GRINDER OPERATOR HELPER, Adriana Referring Unavailable Gill, Emanuel Primary Care Unavailable Zack Turner Attending Unavailable Gill, Emanuel Primary Care Unavailable Lipscomb SHEAR GRINDER OPERATOR HELPER, Adriana Referring Unavailable Lipscomb SHEAR GRINDER OPERATOR HELPER, Adriana Attending Unavailable Lipscomb SHEAR GRINDER OPERATOR HELPER, Adriana Attending Unavailable Lipscomb SHEAR GRINDER OPERATOR HELPER, Adriana Referring Unavailable Gill, Emanuel Primary Care Unavailable Gill, Emanuel Primary Care Unavailable Lipscomb SHEAR GRINDER OPERATOR HELPER, Adriana Attending Unavailable Lipscomb SHEAR GRINDER OPERATOR HELPER, Adriana Referring Unavailable DemiterFranciscaAdolfo Consulting Unavailable Gill, Emanuel Primary Care Unavailable ANAND, ISHAN Referring Unavailable ISHAN MICHEL Attending Unavailable Gill, Emanuel Attending Unavailable Gill, Emanuel Primary Care Unavailable Gill, Emanuel Referring Unavailable Gill, Emanuel Primary Care Unavailable Lipscomb SHEAR GRINDER OPERATOR HELPER, Adriana Referring Unavailable Lipscomb SHEAR GRINDER OPERATOR HELPER, Adriana Attending Unavailable Han Schumacher Attending Unavailable Gill, Emanuel Referring Unavailable Demiter, Adolfo Attending Unavailable Gill, Emanuel Primary Care Unavailable Gill, Emanuel Referring Unavailable Gill, Emanuel Primary Care Unavailable Deisi SHEAR GRINDER OPERATOR HELPER, Adriana Attending Unavailable Gill, Emanuel Referring Unavailable Demiter, Adolfo Attending Unavailable Gill, Emanuel Primary Care Unavailable Gill, Emanuel Attending Unavailable GillDaniel Referring Unavailable Gill, Emanuel Primary Care Unavailable Medications Current Medications Medication Drug Class(es) Dates Sig (Normalized) Sig (Original) 8 hr acetaminophen 650 mg extended release oral tablet (16 sources) Start: 10-09-2024 End: 10-23-2024 take 1 tablet by mouth every six hours as needed acetaminophen 650 MG Tab CR Take 1 tablet by mouth every 6 hours as needed for Mild Pain for up to 14 days. 56 tablet 10/09/2024 Active Start: 09-30-2024 End: 10-14-2024 Start: 09-28-2024 End: 10-09-2024 take 1 tablet by mouth every six hours as needed for pain Start: 04-04-2020 End: 04-05-2020 take 1 tablet by mouth every six hours as needed 650 mg, Oral, Every 6 hours PRN, mild pain, headaches, Starting 04/04/20 at 1813 Do not exceed max of 4000 mg acetaminophen in 24 hours. amoxicillin 875 mg / clavula dario 125 mg oral tablet (9 sources) Penicillin-class Antibacterial Start: 10-20-2024 Start: 10-14-2024 End: 02-07-2025 take 1 tablet by mouth every twelve hours Amoxicillin-clavulanate 875-125 MG table t Take 1 tablet by mouth every 12 hours. 60 tablet 2 11/09/2024 02/07/2025 Active Start: 10-14-2024 End: 11-09-2024 apixaban 5 mg oral tablet (20 sources) Factor Xa Inhibitor Start: 01-12-2022 End: 10-20-2024 Eliquis 5 mg Tab 01/12/2022 Active Start: 12-15-2021 End: 12-15-2021 take 1 tablet by mouth twice daily Apixaban (Eliquis) 5 mg tablet Discontinued 5 mg PO TWICE A DAY 60 11 December 15, 2021 12:00am December 15, 2021 4:16pm take 1 tablet by anette th every twelve hours apixaban 5 MG tablet Take 1 tablet by mouth every 12 hours. Active ezetimibe 10 mg / simvastatin 20 [...] every night at bedtime . 02/12/2014 Active ibuprofen 200 mg oral capsule (10 sources) Nonsteroidal Anti-inflammatory Drug Start: 09-28-2024 take 1 capsule by mouth every eight hours Start: 04-04-2020 End: 04-05-2020 take 1 tablet by mouth every six hours as needed 600 mg, Oral, Every 6 hours PRN, headaches, Starting 04/04/20 at 1813 Give with Food Do Not Crush or Chew if administering orally due to bitter taste. May be crushed if given via tube. End: 10-14-2024 take 200 mg by mouth every eight hours as needed lidocaine 0.05 mg/mg medicated patch (4 sources) Antiarrhythmic, Amide Local Anesthetic Start: 10-09-2024 End: 10-16-2024 Start: 09-30-2024 End: 10-14-2024 Start: 09-30-2024 End: 09-30-2024 24 hr metoprolol succinate 50 mg extended release oral tablet (10 sources) beta-Adrenergic Nathan Start: 10-14-2024 take 1 tablet by mouth once daily Start: 10-06-2024 End: 10-06-2024 Start: 09-30-2024 End: 10-14-2024 omeprazole 40 mg delayed release oral capsule (20 sources) Proton Pump Inhibitor Start: 06-20-2022 End: 01-13-2024 take 1 capsule by mouth twice daily omeprazole (PRILOSEC) 40 MG capsule Take 1 (one) capsule (40 mg total) by mouth 2 (two) times a day . 180 capsule 3 01/13/2024 Active Start: 06-27-2021 End: 12-15-2021 take 1 capsule by mouth once daily Omeprazole 40 mg capsule,delayed release(DR/EC) Discontinued 40 mg PO DAILY June 27, 2021 12:00am December 15, 2021 2:59pm Start: 12-15-2020 End: 05-09-2021 take 1 capsule by mouth once daily omeprazole (PRILOSEC) 40 MG capsule Take 1 (one) capsule (40 mg total) by mouth daily . 90 capsule 2 02/08/2021 Active spironolactone 25 mg oral tablet (9 sources) Aldosterone Antagonist Start: 10-20-2024 take 1 tablet by mouth once daily Start: 10-13-2024 End: 10-14-2024 take 1 tablet by mouth once daily Spironolactone 25 MG tablet Take 1 tablet by mouth daily. 90 tablet 1 10/15/2024 Active sucralfate 100 mg/ml oral suspension (20 [...] . 400 mL 2 06/16/2024 Active Start: 01-08-2023 End: 01-13-2024 take 10 [...] 2 10/16/2022 11/19/2022 Discontinued Start: 06-20-2022 End: 10-14-2024 take 1 tablet by mouth four times [...] mL 2 01/02/2021 02/08/2021 Discontinued (Therapy completed) traMADol hydrochloride 50 mg oral tablet (13 sources) Opioid Agonist Start: 09-28-2024 End: 11-09-2024 take 1 tablet by mouth every eight hours as needed for pain vitamin b12 0.5 mg oral tablet (20 sources) Vitamin B12 Start: 06-27-2021 take 1 tablet by mouth once daily End: 11-09-2024 take 1 tablet by mouth once daily in the morning cyanocobalamin, vitamin B-12, 2,000 mcg Tab Take 1 (one) tablet (2,000 mcg total) by mouth every morning . Active Completed/Discontinued Medications Medication Drug Class(es) Dates Sig (Normalized) Sig (Original) acetaminophen 24 mg/ml / codeine phosphate 2.4 mg/ml oral solution (4 sources) Opioid Agonist Start: 07-31-2022 End: 08-03-2022 take 5-10 mL by mouth every six hours as needed for pain acetaminophen-cod eine (TYLENOL w/CODEINE) 120-12 mg/5 mL Soln Indications: Magallon's esophagus with dysplasia Take 5-10 mL by mouth every 6 (six) hours as needed (esophageal pain) . 120 mL 0 07/31/2022 08/03/2022 Start: 07-18-2021 End: 07-21-2021 take 5-10 mL by mouth every four hours as needed acetaminophen-codeine (TYLENOL w/CODEINE ) 120-12 mg/5 mL Soln Indications: Slipped Santos fundoplication , History of Magallon's esophagus Take 5-10 mL by mouth every 4 (four) hours as needed . 180 mL 0 07/18/2021 07/21/2021 Active Start: 01-02-2021 End: 01-12-2021 take 5 mL by mouth every six hours as needed acetaminophen-codeine (TYLENOL w/CODEINE ) 120 mg-12 mg /5 mL (5 mL) Soln Indications: Magallon's esophagus with dysplasia Take 5 mL by mouth every 6 (six) hours as needed . 100 mL 0 01/02/2021 01/12/2021 Active acetaminophen 325 mg / HYDROcodone bitartrate 5 mg oral tablet (12 sources) Opioid Agonist Start: 01-31-2017 End: 06-27-2021 Hydrocodone-Acetaminophen 1 TABLET tablet Discontinued 1 {tbl} PO EVERY 4 HOURS NEEDED as needed for Pain 10 0 January 31, 2017 1:00am June 27, 2021 9:41pm Start: 01-31-2017 End: 06-27-2021 take 1 tablet by mouth every four hours as needed Hydrocodone-Acetaminophen Discontinued 1 TABLET PO EVERY 4 HOURS NEEDED January 31, 2017 8:56am June 27, 2021 9:41pm [id number] 200 actuat albuter ol 0.09 mg/actuat metered dose inhaler (20 sources) beta2-Adrenergic Agonist Start: 09-29-2024 End: 10-14-2024 Start: 09-24-2024 End: 09-29-2024 take 2.5 mg by inhalation every four hours as needed for wheezing take 1 puff(s) by in halation every four hours as needed Albuterol 108 (90 Base) MCG/ACT Aero Soln inhaler Inhale 1 puff every 4 hours as needed for Shortness of Breath. Active albuterol 0.833 mg/ml / ipratropium bromide 0.167 mg/ml inhalation solution (1 source) Anticholinergic, beta2-Adrenergic Agonist Start: 10-06-2024 End: 10-14-2024 take 3 mL by inhalation every six hours amLODIPine 10 mg oral tablet (20 sources) Dihydropyridine Calcium Channel Nathan Start: 04-05-2020 End: 04-05-2020 take 10 mg by mouth once daily 10 mg, Oral, Daily, First dose on Sat04/05/20 at 0900 Start: 12-14-2019 End: 10-20-2024 take 1 tablet by mouth once daily in the morning amLODIPine (NORVASC) 10 MG tablet Take 1 (one) tablet (10 mg total) by mouth every morning . 12/14/2019 Active aprepitant 40 mg oral capsul e (1 source) Substance P/Neurokinin-1 Receptor Antagonist Start: 10-06-2024 End: 10-06-2024 atorvastatin 10 mg oral tabl et (1 source) HMG-CoA Reductase Inhibitor Start: 09-30-2024 End: 10-14-2024 calcium carbonate 648 mg ora l tablet (1 source) Start: 09-29-2024 End: 10-14-2024 calcium chloride 0.0014 meq/ ml / potassium chloride 0.004 meq/ml / sodium chloride 0.103 meq/ml / sodium lactate 0.028 meq/ml injectable solution (3 sources) Start: 09-29-2024 End: 09-30-2024 Start: 04-04-2020 End: 04-05-2020 take 75 mL intravenous route every hour 75 mL/hr, Intravenous, Continuous, Starting Sat04/04/20 at 1900 Start: 04-04-2020 End: 04-04-2020 lactated Ringers infusion chlorproMAZINE hydrochloride 10 mg oral tablet (3 sources) Phenothiazine Start: 10-04-2024 End: 10-14-2024 take 25 mg by mouth every four hours as needed Start: 09-29-2024 End: 10-04-2024 take 12.5 mg by mouth every four hours as needed cholecalciferol 0.025 mg oral capsule (20 sources) [...] ml enoxaparin sodium 100 mg/ml prefilled syringe (3 sources) Low Molecular Weight Heparin Start: 10-07-2024 End: 10-10-2024 Start: 04-04-2020 End: 04-05-2020 inject 40 mg by subcutaneous injection once daily 40 mg, Subcutaneous, Daily, First dose on Sat04/05/20 at 0800 Administer in abdomen unless otherwise directed by prescriber. Notify physician if patient refuses. Indication: VTE Prophylaxis ezetimibe 10 mg oral tablet (1 source) Dietary Cholesterol Absorption Inhibitor Start: 09-30-2024 End: 10-14-2024 ezetimibe (ZETIA) 10 mg, simvastatin (ZOCOR) 20 mg for VYTORIN 11/30 (1 source) Start: 04-04-2020 End: 04-05-2020 take 1 dose by mouth once daily Oral, Nightly, First dose on Sat04/04/20 at 2100 Furosemide (5 sources) Loop Diuretic Start: 10-09-2024 End: 10-14-2024 Start: 10-09-2024 End: 10-14-2024 Start: 10-08-2024 End: 10-09-2024 Start: 10-07-2024 End: 10-07-2024 gabapentin 300 mg oral capsule (6 sources) Anti-epileptic Agent Start: 10-07-2024 End: 10-19-2024 take 1 capsule by mouth three times daily Gabapentin 300 MG capsule Take 1 capsule by mouth 3 times daily for 5 days. 15 capsule 10/09/2024 10/19/2024 Discontinued Start: 09-30-2024 End: 10-07-2024 12 hr guaiFENesin 600 mg ext ended release oral tablet (2 sources) Start: 10-06-2024 End: 10-14-2024 Start: 09-29-2024 End: 10-14-2024 take 400 mg by mouth every six hours as needed hydroCHLOROthiazide 25 mg oral tablet (16 sources) Thiazide Diuretic Start: 02-18-2014 End: 06-27-2021 [...] Discontinued 1 ml HYDROmorphone hydrochloride 1 mg/ml cartridge (2 sources) Opioid Agonist Start: 10-07-2024 End: 10-14-2024 take 0.5 mg intravenously every three hours as needed Start: 04-04-2020 End: 04-04-2020 0.5 mg, Intravenous, Every 5 min PRN, Pain, Starting Sat04/04/20 at 1356, For 6 doses, PACU (only) [] Give if fentanyl not effective or not ordered. [] Do not give more than 3 mg total. 1 ml ketorolac tromethamine 30 mg/ml injection (1 source) Nonsteroidal Anti-inflammatory Drug, Cyclooxygenase Inhibitor Start: 04-04-2020 End: 04-04-2020 ketorolac (TORADOL) injection 30 mg Start: 04-04-2020 End: 04-04-2020 ketorolac (TORADOL) injectio n 30 mg ammonium lactate 120 mg/ml t opical lotion (15 sources) Start: 09-30-2024 End: 10-14-2024 Start: 01-28-2023 magic mouthwash susp equal parts viscous lidocaine 2%, diphenhydramine 12.5mg/5mL, maalox [id number]/5mL (3 sources) Start: 07-31-2022 End: 08-10-2022 take 15 mL by mouth every four hours as needed magic mouthwash susp equal parts viscous lidocaine 2%, diphenhydramine 12.5mg/5mL, maalox [id number]/5mL Swish and spit 15 mL every 4 (four) hours as needed . 300 mL 0 07/31/2022 08/10/2022 Start: 07-18-2021 End: 07-28-2021 take 15 mL by mouth every four hours as needed magic mouthwash susp equal parts viscous lidocaine 2%, diphenhydramine 12.5mg/5mL, maalox [id number]/5mL Swish and spit 15 mL every 4 (four) hours as needed . 300 mL 0 07/18/2021 07/28/2021 Active Start: 01-02-2021 End: 01-12-2021 magic mouthwash susp equal p arts viscous lidocaine 2%, diphenhydramine 12.5mg/5mL, maalox [id number]/5mL Swish and spit 15 mL every 4 (four) hours as needed . 300 mL 0 01/02/2021 01/12/2021 Active 100 ml magnesium sulfate 10 mg/ml injection (1 source) Start: 10-11-2024 End: 10-11-2024 melatonin 3 mg oral tablet (1 source) Start: 09-29-2024 End: 10-14-2024 methocarbamol 500 mg oral tablet (6 sources) Muscle Relaxant Start: 10-09-2024 End: 11-09-2024 take 2 tablets by mouth four times daily Methocarbamol 500 MG tablet Take 2 tablets by mouth 4 times daily for 7 days. 56 tablet 10/09/2024 11/09/2024 Discontinued (Therapy completed) Start: 10-07-2024 End: 10-14-2024 Start: 09-30-2024 End: 10-07-2024 1 ml morphine sulfate 2 mg/m l injection (3 sources) Opioid Agonist Start: 09-30-2024 End: 09-30-2024 Start: 09-30-2024 End: 09-30-2024 naloxone (NARCAN) injection 0.1 mg (1 source) Start: 04-04-2020 End: 04-05-2020 naloxone (NARCAN) injection 0.1 mg 2 ml ondansetron 2 mg/ml injection (1 source) Serotonin-3 Receptor Antagonist Start: 04-04-2020 End: 04-05-2020 take 4 mg intravenous route every six hours as needed 4 mg, Intravenous, Every 6 hours PRN, nausea, vomiting, Starting 04/04/20 at 1813 oxyCODONE hydrochloride 5 mg oral tablet (5 sources) Opioid Agonist Start: 10-06-2024 End: 10-19-2024 take 1 tablet by mouth every six hours as needed oxyCODONE 5 MG tablet Indications: Loculated pleural effusion Take 1 tablet by mouth every 6 hours as needed for up to 3 days. 12 tablet 10/09/2024 10/19/2024 Discontinued pantoprazole 40 mg delayed release oral tablet (19 sources) Proton Pump Inhibitor Start: 09-29-2024 End: 10-14-2024 Start: 12-18-2019 End: 04-04-2020 take 1 tablet by mouth once daily pantoprazole (PROTONIX) 40 MG tablet Take 40 mg by mouth daily . 0 12/18/2019 04/04/2020 Discontinued Start: 01-29-2017 End: 06-27-2021 take 1 tablet by mouth twice daily Pantoprazole 40 MG tablet Discontinued 40 mg PO TWICE A DAY January 29, 2017 1:00am June 27, 2021 9:41pm piperacillin 4000 mg / tazobactam 500 mg injection (2 sources) Penicillin-class Antibacterial, beta Lactamase Inhibitor Start: 09-29-2024 End: 10-05-2024 polyethylene glycol 3350 170 00 mg powder for oral solution (1 source) Osmotic Laxative Start: 10-03-2024 End: 10-10-2024 microencapsulated potassium chloride 20 meq extended release oral tablet (5 sources) Start: 10-14-2024 End: 10-14-2024 Start: 10-11-2024 End: 10-11-2024 Start: 10-07-2024 End: 10-07-2024 Start: 09-29-2024 End: 09-29-2024 rivaroxaban 20 mg oral tablet (20 sources) Factor Xa [...] mg tablet Discontinued 20 mg PO DAILY 09 02December 15, 2021 12:00am December 15, 2021 4:16pm must administer with evening meal 72 hr scopolamine 0.0139 mg/hr transdermal system (1 source) Anticholinergic Start: 10-06-2024 End: 10-06-2024 sennosides, longterm 8.6 mg oral tablet (2 sources) Start: 09-29-2024 End: 10-14-2024 take 17.2 mg by mouth every twelve hours as needed sodium chloride 30 mg/ml inhalation solution (3 sources) Start: 10-06-2024 End: 10-14-2024 take 4 mL by inhalation every six hours as needed Start: 09-29-2024 End: 10-14-2024 torsemide 20 mg oral tablet (5 sources) Loop Diuretic Start: 10-04-2024 End: 11-09-2024 take 2 tablets by mouth once daily Torsemide 20 MG tablet Take 2 tablets by mouth daily. 60 tablet 10/14/2024 11/09/2024 Discontinued (Therapy completed) 200 ml vancomycin 5 mg/ml injection (1 source) Glycopeptide Antibacterial Start: 09-29-2024 End: 10-01-2024 (11 sources) Start: 10-11-2024 End: 10-14-2024 [Order 1 Start] Name: magnesium oxide (MAG-OX) tablet 800 mg Signed Summary: 800 mg, Oral, ADMINISTER DIRECTED, Starting on 10/11/24 at 0815, Until Sat10/14/24 at 1404, See admin instructions, Cardiology Medicine Electrolyte Replacement Protocol, Administer for magnesium level of 1.6-1.9 mg/dL. NOT APPROPRIATE for Dialysis Patients, those with CrCl less than 30 mL/min, weight less than 50 kg; or for history of renal transplant. Draw magnesium level with next day morning labs. [Order 1 End] [Order 2 Start] Name: magnesium oxide (MAG-OX) tablet 800 mg Signed Summary: 800 mg, Per NG tube, ADMINISTER DIRECTED, Starting on 10/11/24 at 0815, Until Sat10/14/24 at 1404, See admin instructions, Cardiology Medicine Electrolyte Replacement Protocol, Administer for magnesium level of 1.6-1.9 mg/dL. NOT APPROPRIATE for Dialysis Patients, those with CrCl less than 30 mL/min, weight less than 50 kg; or for history of renal transplant. Draw magnesium level with next day morning labs. [Order 2 End] [Order 3 Start] Name: Magnesium sulfate 4 g in sterile water 50 ml premix IVPB Signed Summary: 4 g, Intravenous, Administer over 4 Hours, ADMINISTER DIRECTED, Starting on 10/11/24 at 0815, Until Sat10/14/24 at 1404, Other, Cardiology Medicine Electrolyte Replacement Protocol, Administer for Magnesium level less than or equal to 1.5 mg/dL. NOT APPROPRIATE for Dialysis Patients, those with CrCl less than 30 mL/min, weight less than 50 kg; or for history of renal transplant. Repeat Magnesium level eight (8) hours after each infusion if most recent magnesium level is less than 1.3 mg/dL. Draw with next day morning labs after replacements for previous magnesium levels between 1.3-1.9 mg/dL. [Order 3 End] Start: 10-11-2024 End: 10-14-2024 [Order 1 Start] Name: Potass ium chloride (K-DUR) tablet ER 40-60 mEq Signed Summary: 40-60 mEq, Oral, ADMINISTER DIRECTED, Starting on 10/11/24 at 0815, Until Sat10/14/24 at 1404, See admin instructions, Other, Cardiology Medicine Electrolyte Replacement Protocol, NOT APPROPRIATE for Dialysis Patients, those with CrCl less than 30 mL/min, weight less than 50 kg; or for history of renal transplant. Check magnesium level and administer magnesium prior to potassium replacement if indicated. For Potassium level less than 3 mmol/L administer 40 mEq every 4 hours x2 occurances. Recheck potassium level eight (8) hours after second dose administered. For Potassium level 3-3.5 mmol/L administer 60 mEq once. Recheck potassium level eight (8) hours after administration. For Potassium level 3.6-4.0 mmol/L administer 40 mEq once. Recheck potassium level with morning labs next day. [Order 1 End] [Order 2 Start] Name: Potassium Bicarb-Citric Acid (Effer-K) 20 MEQ effervescent tablets for oral solution 40-60 mEq Signed Summary: 40-60 mEq, Per NG tube, ADMINISTER DIRECTED, Starting on Sat10/11/24 at 0815, Until Sat10/14/24 at 1404, Other, Cardiology Medicine Electrolyte Replacement Protocol, NOT APPROPRIATE for Dialysis Patients, those with CrCl less than 30 mL/min, weight less than 50 kg; or for history of renal transplant. Check magnesium level and administer magnesium prior to potassium replacement if indicated. For Potassium level less than 3 mmol/L administer 40 mEq every 4 hours x2 occurances. Recheck potassium level eight (8) hours after second dose administered. For Potassium level 3-3.5 mmol/L administer 60 mEq once. Recheck potassium level eight (8) hours after administration. For Potassium level 3.6-4.0 mmol/L administer 40 mEq once. Recheck potassium level with morning labs next day. Do not swallow whole. Dissolve completely in 3-4 ounces of water or cold juice before drinking. If administering via J tube, dilute in sterile water, wait for tablet to stop fizzing, swirl the solution and draw into a syringe suitable for attaching to the tube. After administration, flush tube with 15-30 ml water. [Order 2 End] Start: 10-05-2024 End: 10-14-2024 take 3 g intravenously every six hours Start: 10-04-2024 End: 10-04-2024 Start: 10-03-2024 End: 10-03-2024 Start: 10-03-2024 End: 10-03-2024 Start: 10-02-2024 End: 10-02-2024 Start: 09-29-2024 End: 10-14-2024 take 25 mg by mouth every six hours as needed [Order 1 Start] Name: Promethazine (PHENERGAN) tablet 25 mg Signed Summary: 25 mg, Oral, EVERY 6 HOURS NEEDED, Starting on Sat09/29/24 at 1442, Until Sat10/14/24 at 1404, Refractory Nausea Vomiting, 2nd line for nausea/vomiting [Order 1 End] [Order 2 Start] Name: Promethazine (PHENERGAN) suppository 25 mg Signed Summary: 25 mg, Rectal, EVERY 6 HOURS NEEDED, Starting on Sat09/29/24 at 1442, Until Sat10/14/24 at 1404, Refractory Nausea Vomiting, 2nd line for nausea/vomiting [Order 2 End] Start: 09-29-2024 End: 10-14-2024 take 4 mg intravenously every six hours as needed [Order 1 Start] Name: Ondansetron 4mg/2ml (ZOFRAN) injection 4 mg Signed Summary: 4 mg, Intravenous, EVERY 6 HOURS NEEDED, Starting on Sat09/29/24 at 1442, Until Sat10/14/24 at 1404, Nausea / Vomiting [Order 1 End] [Order 2 Start] Name: Ondansetron (ZOFRAN-ODT) disintegrating tablet 4 mg Signed Summary: 4 mg, Oral, EVERY 6 HOURS NEEDED, Starting on Sat09/29/24 at 1442, Until Sat10/14/24 at 1404, Nausea / Vomiting [Order 2 End] (2 sources) Start: 10-04-2024 End: 10-05-2024 take 1250 mg intravenously every twenty- four hours Start: 10-01-2024 End: 10-03-2024 Problems Active Problems Problem Classification Problem Date Documented Date Episodic/Chronic Bacterial infection; unspecified site (2 sources) Pulmonary actinomycosis; 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 Chronic obstructive pulmonary disease and bronchiectasis (7 sources) Bronchitis; Translations: [Bronchitis, not specified as acute or chronic] 09-24-2024 Episodic Congestive heart failure; nonhypertensive (20 sources) Acute on chronic heart failure co-occurrent with normal ejection fraction; Translations: [Acute on chronic diastolic (congestive) heart failure] Onset: 09-29-2024 10-14-2024 Chronic Coronary atherosclerosis and other heart disease (2 sources) Atherosclerotic heart disease of [place] coronary artery without angina pectoris; Translations: [Coronary atherosclerosis due to calcified coronary lesion] Onset: 12-13-2024 Chronic Deficiency and other anemia (6 sources) Anemia; Translations: [Anemia, unspecified] Onset: 10-01-2024 10-01-2024 Episodic Deficiency and other anemia (1 source) Anemia, unspecified; Translations: [Anemia, unspecified] Onset: 10-16-2024 Episodic Disorders of lipid metabolism (20 sources) Hyperlipidemia; Translations: [Hyperlipidemia, unspecified] Onset: 03-21-2020 03-21-2020 Chronic Comment on above: Most recent lipid pa homer 01/20/2024 total cholesterol 115, triglyceride 48, LDL 43, HDL 62. LFTs WNL. Esophageal disorders (20 sources) Magallon's esophagus; Translations: [Gastroesophageal reflux disease] Onset: 01-05-2020 01-05-2020 Chronic Essential hypertension (20 sources) Hypertensive disorder; Translations: [Essential (primary) hypertension] Onset: 03-21-2020 03-21-2020 Chronic Fluid and electrolyte disorders (13 sources) Acute hyponatremia; Translations: [Hypo-osmolality and hyponatremia] Onset: 10-01-2024 09-28-2024 Episodic Nonspecific chest pain (17 sources) Chest pain; Translations: [Chest pain, unspecified] Onset: 10-05-2024 09-19-2024 Episodic Other aftercare (2 sources) Surgical follow-up; Translations: [Encounter for surgical aftercare following surgery on the digestive system] Episodic Other aftercare (1 source) Taking high risk medication; Translations: [Other shelter (current) drug therapy] 10-05-2024 Episodic Other aftercare (1 source) Long-term current use of antibiotic; Translations: [correction (current) use of antibiotics] 11-09-2024 Episodic Other aftercare (2 sources) Other long term care phlebotomist (current) drug therapy; Translations: [Other shelter (current) drug therapy] Onset: 09-29-2024 Episodic Other circulatory disease (9 sources) H/O: atrial fibrillation; Translations: [Personal history of other diseases of the circulatory system] 09-19-2024 Episodic Other circulatory disease (7 sources) H/O: hypertension; Translations: [Personal history of other diseases of the circulatory system] 09-28-2024 Episodic Other diseases of kidney and ureters (7 sources) Acute renal insufficiency; Translations: [Disorder of kidney and ureter, unspecified] 09-28-2024 Episodic Other lower respiratory disease (9 sources) Dyspnea; Translations: [Shortness of breath] 09-22-2024 Episodic Other lower respiratory disease (16 sources) Lung mass; Translations: [Other nonspecific abnormal finding of lung field] 09-22-2024 Episodic Comment on above: Left lower lobe Other lower respiratory disease (1 source) Other nonspecific abnormal finding of lung field; Translations: [Other nonspecific abnormal finding of lung field] Onset: 10-27-2024 Episodic Other lower respiratory disease (1 source) Dyspnea, unspecified; Translations: [Dyspnea, unspecified] Onset: 09-22-2024 Episodic Other lower respiratory disease (2 sources) Shortness of breath; Translations: [Shortness of breath] Onset: 09-22-2024 Episodic Other nutritional; endocrine; and metabolic disorders (2 sources) Hypomagnesemia; Translations: [Hypomagnesemia] Onset: 10-16-2024 Chronic Pleurisy; pneumothorax; pulmonary collapse (20 sources) Pleural effusion; Translations: [Pleural effusion, not elsewhere classified] Onset: 09-29-2024 Resolved: 10-14-2024 09-19-2024 Episodic Residual codes; unclassified (1 source) History of hernia repair; Translations: [Other specified postprocedural states] 10-05-2024 Episodic Unclassified (1 source) Patient encounter status; Translations: [Elective surgery] Unclassified (4 sources) Preprocedural examination done; Translations: [Pre-op examination] Onset: 03-21-2020 03-21-2020 Unclassified (7 sources) Call his office this Saturday to get an appointment. Tell them you have a left pleural effusion that needs further evaluation. Past or Other Problems Problem Classification Problem Date Documented Date Episodic/Chronic Abdominal hernia (20 sources) Paraesophageal hernia; Translations: [Diaphragmatic hernia without obstruction or gangrene] Onset: 0 01-05-2020 Episodic Complications of surgical procedures or medical care (20 sources) Complication of anesthesia; Translations: [Other complications of anesthesia, initial encounter] Onset: 1 03-21-2020 Episodic Mood disorders (3 sources) Mood disorders Onset: 5 10-19-2024 Other gastrointestinal disorders (20 sources) Heartburn; Translations: [Heartburn] Onset: 0 01-05-2020 Episodic Other gastrointestinal disorders (20 sources) Dysphagia; Translations: [Dysphagia, pharyngoesophageal phase] Onset: 0 01-05-2020 Episodic Other gastrointestinal disorders (20 sources) Abdominal bloating; Translations: [Abdominal distension (gaseous)] Onset: 0 01-05-2020 Episodic Other gastrointestinal disorders (20 sources) History of Magallon's esophagus; Translations: [Personal history of other diseases of the digestive system] Onset: 1 Episodic Other gastrointestinal disorders (4 sources) Personal history of other diseases of the digestive system; Translations: [Personal history of other diseases of the digestive system] Onset: 1 Episodic Other screening for suspected conditions (not mental disorders or infectious disease) (1 source) Encounter for screening for malignant neoplasm of prostate; Translations: [Encounter for screening for malignant neoplasm of prostate] Onset: 5 Episodic Residual codes; unclassified (20 sources) History of fundoplication; Translations: [Other specified postprocedural states] Onset: 1 Episodic Residual codes; unclassified (20 sources) Patient encounter status; Translations: [Encounter for procedure for purposes other than remedying health state, unspecified] Onset: 1 Episodic Residual codes; unclassified (6 sources) Other specified postprocedural states; Translations: [Other specified postprocedural states] Onset: 5 Episodic Unclassified (1 source) Long-term current use of antibiotic 11-09-2024 Results Test Name Value Interpretation Reference Range Facility Absolute lymphocyte counton 11-05-2024 Lymphocytes Auto (Unsp spec) [#/Vol] 1.28 10*3/uL 0.83-4.51 [facility] Absolute neutrophil counton 11-05-2024 Neutrophils (Bld) [#/Vol] 3.8 10*3/uL 2.0-7.7 [facility] Anion gap in Serum or Plasma on 11-05-2024 Anion gap [Moles/Vol] 10 mmol/L 06-25 [facility] Automated lymphocyte count a s percentage of total leukocyteson 11-05-2024 Lymphocytes/100 WBC Auto (Unsp spec) 22.0 % [facility] BUN/creatinine ratioon 11-05 Urea nitrogen/Creatinine [Mass ratio] 19.6 mg/mg 11-30 [facility] Basic Metabolic Profile (BMP )on 11-05-2024 BUN/CRE 19.6 RATIO Normal 11-30 [facility] Comment on above: Performed By: #### L 500.4050, L100.0100, L501.9910, L500.4100 #### [facility] [address] [place], [address] Calcium [Mass/Vol] 9.0 mg/dL Normal 7.6-11.0 [facility] Comment on above: Performed By: #### L 500.4050, L100.0100, L501.9910, L500.4100 #### [facility] [address] [place], [address] Chloride [Moles/Vol] 100 mmol/L Normal 98-108 [facility] Comment on above: Performed By: #### L 500.4050, L100.0100, L501.9910, L500.4100 #### [facility] [address] [place], [address] CO2 [Moles/Vol] 23.9 mmol/L Normal 21.0-32.0 [facility] Comment on above: Performed By: #### L 500.4050, L100.0100, L501.9910, L500.4100 #### [facility] [address] [place], [address] Creatinine [Mass/Vol] 0.58 mg/dL Low 0.70-1.20 [facility] Comment on above: Performed By: #### L 500.4050, L100.0100, L501.9910, L500.4100 #### [facility] [address] [place], [address] GAP 10 Normal 5-15 [facility] Comment on above: Performed By: #### L 500.4050, L100.0100, L501.9910, L500.4100 #### [facility] [address] [place], [address] GFR/1.73 sq M.predicted among non-blacks MDRD (S/P/Bld) [Vol rate/Area] 102 mL/min/{1.73_m2} Normal >60 [facility] Comment on above: Result Comment: mL/m in/1.73m2 CKD-EPI Creatinine Equation (2020) Performed By: #### L 500.4050, L100.0100, L501.9910, L500.4100 #### [facility] [address] [place], [address] Glucose [Mass/Vol] 106 mg/dL High 70-99 [facility] Comment on above: Performed By: #### L 500.4050, L100.0100, L501.9910, L500.4100 #### [facility] [address] [place], [address] Potassium [Moles/Vol] 4.4 mmol/L Normal 3.3-5.1 [facility] Comment on above: Performed By: #### L 500.4050, L100.0100, L501.9910, L500.4100 #### [facility] [address] [place], [address] Sodium [Moles/Vol] 134 mmol/L Normal 133-145 [facility] Comment on above: Performed By: #### L 500.4050, L100.0100, L501.9910, L500.4100 #### [facility] [address] [place], [address] Urea nitrogen [Mass/Vol] 11 mg/dL Normal 4-19 [facility] Comment on above: Performed By: #### L 500.4050, L100.0100, L501.9910, L500.4100 #### [facility] [address] [place], [address] Basophil percentageon 2024 Basophils/100 WBC (Bld) 1.2 % High 0-1 [facility] Bilirubin directon 5 Bilirubin.direct [Mass/Vol] 0.12 mg/dL 0.00-0.30 [facility] Bilirubin, totalon 5 Bilirubin [Mass/Vol] 0.28 mg/dL 0.00-1.30 [facility] CBC W/Diff, Automatedon 10-13 Absolute Lymph 1.28 X10 3/uL Normal 0.83-4.51 [facility] Comment on above: Performed By: #### L 500.4050, L100.0100, L501.9910, L500.4100 #### [facility] [address] [place], [address] Absolute Neut 3.8 X10 3/uL Normal 2.0-7.7 [facility] Comment on above: Performed By: #### L 500.4050, L100.0100, L501.9910, L500.4100 #### [facility] [address] [place], [address] Basophils/100 WBC (Bld) 1.2 % High 0-1 [facility] Comment on above: Performed By: #### L 500.4050, L100.0100, L501.9910, L500.4100 #### [facility] [address] [place], [address] Eosinophils/100 WBC (Bld) 3.9 % Normal 0-5 [facility] Comment on above: Performed By: #### L 500.4050, L100.0100, L501.9910, L500.4100 #### [facility] [address] [place], [address] Erythrocyte distribution width (RBC) [Ratio] 15.3 % High 11.6-14.6 [facility] Comment on above: Performed By: #### L 500.4050, L100.0100, L501.9910, L500.4100 #### [facility] [address] [place], [address] Hematocrit (Bld) [Volume fraction] 34.3 % Low 40-54 [facility] Comment on above: Performed By: #### L 500.4050, L100.0100, L501.9910, L500.4100 #### [facility] [address] [place], [address] Hemoglobin (Bld) [Mass/Vol] 10.8 g/dL Low 13.0-16.5 [facility] Comment on above: Performed By: #### L 500.4050, L100.0100, L501.9910, L500.4100 #### [facility] [address] [place], [address] IG% 0.500 Normal 0.0-0.9 [facility] Comment on above: Result Comment: IG% - Immature Granulocytes (promyelocytes, myelocytes and metamyelocytes) > 1% indicates that a LEFT SHIFT is Present. Performed By: #### L 500.4050, L100.0100, L501.9910, L500.4100 #### [facility] [address] [place], [address] Lymphocytes/100 WBC (Bld) 22.0 % Normal 19-41 [facility] Comment on above: Performed By: #### L 500.4050, L100.0100, L501.9910, L500.4100 #### [facility] [address] [place], [address] MCH (RBC) [Entitic mass] 29.2 pg Normal 27.0-32.0 [facility] Comment on above: Performed By: #### L 500.4050, L100.0100, L501.9910, L500.4100 #### [facility] [address] [place], [address] MCHC (RBC) [Mass/Vol] 31.5 g/dL Low 32-36 [facility] Comment on above: Performed By: #### L 500.4050, L100.0100, L501.9910, L500.4100 #### [facility] [address] [place], [address] MCV (RBC) [Entitic vol] 92.7 fL Normal 80-94 [facility] Comment on above: Performed By: #### L 500.4050, L100.0100, L501.9910, L500.4100 #### [facility] [address] [place], [address] Monocytes/100 WBC (Bld) 7.7 % Normal 0-10 [facility] Comment on above: Performed By: #### L 500.4050, L100.0100, L501.9910, L500.4100 #### [facility] [address] [place], [address] Neutrophils/100 WBC (Bld) 64.7 % Normal 47-70 [facility] Comment on above: Performed By: #### L 500.4050, L100.0100, L501.9910, L500.4100 #### [facility] [address] [place], [address] Nucleated RBC (Bld) [#/Vol] 0 10*3/uL Normal 0-5 [facility] Comment on above: Performed By: #### L 500.4050, L100.0100, L501.9910, L500.4100 #### [facility] [address] [place], [address] Platelet mean volume (Bld) [Entitic vol] 9.3 fL Normal 6.2-12.0 [facility] Comment on above: Performed By: #### L 500.4050, L100.0100, L501.9910, L500.4100 #### [facility] [address] [place], [address] Platelets (Bld) [#/Vol] 308 10*3/uL Normal 150-450 [facility] Comment on above: Performed By: #### L 500.4050, L100.0100, L501.9910, L500.4100 #### [facility] [address] [place], [address] RBC (Bld) [#/Vol] 3.70 10*6/uL Low 4.6-6.2 [facility] Comment on above: Performed By: #### L 500.4050, L100.0100, L501.9910, L500.4100 #### [facility] [address] [place], [address] RDW SD 52.4 fl High 35.1-43.9 [facility] Comment on above: Performed By: #### L 500.4050, L100.0100, L501.9910, L500.4100 #### [facility] [address] [place], [address] WBC (Bld) [#/Vol] 5.8 10*3/uL Normal 4.4-11.0 [facility] Comment on above: Performed By: #### L 500.4050, L100.0100, L501.9910, L500.4100 #### [facility] [address] [place], [address] Carbon dioxide, total [Moles /volume] in Central venous bloodon 11-05-2024 CO2 [Moles/Vol] 23.9 mmol/L 21.0-32.0 [facility] Chest without Contraston Chest without Contrast [facility] [address] [place] [address] Chest without Contrast MR#: [id number] Acct: [id number] Name: MAXX FORDE Rep #: [id number] : 1950 M 74 From: Lb Givens MD PCP: Dr. Emanuel Garland, DO Status: REG CLI Study: Chest without Contrast Date of Exam: 11/05/24 Exam# [id number] Ordering Dr: MICHELE THOMPSON PROCEDURE: CHEST WITHOUT CONTRAST 11/05/2024 REASON FOR EXAM: EMPYEMA TECHNIQUE: Chest CT without contrast. Coronal and Sagittal reconstruction series were provided. One or more dose reduction techniques were used (e.g., Automated exposure control, adjustment of the mA and/or kV according to patient size, use of iterative reconstruction technique RADIATION DOSE SUMMARY: CTDlvol: 11 mGy DLP: 416 mGycm COMPARISON: September 2024. FINDINGS: Thyroid gland: Negative. Lungs: Improved aeration left lung with diminished airspace disease in the left lung base. Pleura: Improvement left hydro pneumothorax. With near-complete resolution of air in the pleural space. Negative for pleural effusion or pneumothorax. Airways: Imaged bronchi and trachea otherwisenegative. Mediastinum: Negative for mediastinal mass. Lymph nodes: Negative for axillary, mediastinal or hilar adenopathy. Heart and Vasculature: Resolution pericardial fluid. Heart normal size. [id number] vascular calcifications of the thoracic aorta. Coronary Artery Calcifications: Severe vascular calcifications of the coronary arteries Upper Abdomen: Gallbladder contracted. Increased stool throughout the colon. Hardware: None. Bones: Age-appropriate degenerative changes of the thoracic spine. CT/Chest without Contrast IMPRESSION: Improved appearance left lung with diminished left-sided hydro pneumothorax and pleural thickening. Decreased left lung base airspace disease. Reading Location: [id number] CC: MICHELE THOMPSON; Dr. Emanuel Garland DO Mold Injector: Signed Normal [facility] Chloride assayon 11-05-2024 Chloride [Moles/Vol] 100 mmol/L 98-108 [facility] Eosinophil percentageon 10-13 Eosinophils/100 WBC (Bld) 3.9 % 0-5 [facility] Erythrocyte distribution wid th ratioon 11-05-2024 Erythrocyte distribution width (RBC) [Ratio] 15.3 % High 11.6-14.6 [facility] Erythrocyte distribution wid th standard deviationon 11-05-2024 Erythrocyte distribution width (RBC) [Ratio] 52.4 fl High 35.1-43.9 [facility] Glomerular filtration rate ( GFR) estimation/1.73 sq m using serum, plasma, or whole bon 11-05-2024 GFR/1.73 sq M.predicted among non-blacks MDRD (S/P/Bld) [Vol rate/Area] 102 mL/min/{1.73_m2} >60 [facility] Comment on above: mL/min/1.73m2 CKD-EP I Creatinine Equation (2020) Hematocrit Auto (Bld) [Volum e fraction]on 11-05-2024 Hematocrit (Bld) [Volume fraction] 34.3 % Low 40-54 [facility] Hemoglobin measurementon Hemoglobin (Bld) [Mass/Vol] 10.8 g/dL Low 13.0-16.5 [facility] Immature granulocytes/100 WB C Auto (Bld)on 11-05-2024 Immature granulocytes/100 WBC (Bld) 0.500 % 0.0-0.9 [facility] Comment on above: IG% - Immature Granu locytes (promyelocytes, myelocytes and metamyelocytes) > 1% indicates that a LEFT SHIFT is Present. Laboratory - Chemistry and C hemistry - challengeon 11-05-2024 AST [Catalytic activity/Vol] 24 U/L <38 [facility] Liver Profileon 11-05-2024 Albumin [Mass/Vol] 3.7 g/dL Normal 3.4-4.8 [facility] Comment on above: Performed By: #### L 500.4050, L100.0100, L501.9910, L500.4100 #### [facility] [address] [place], [address] ALK PHOS 91 U/L Normal 40-129 [facility] Comment on above: Performed By: #### L 500.4050, L100.0100, L501.9910, L500.4100 #### [facility] [address] [place], [address] ALT [Catalytic activity/Vol] 16 U/L Normal <=46 [facility] Comment on above: Performed By: #### L 500.4050, L100.0100, L501.9910, L500.4100 #### [facility] [address] [place], [address] AST [Catalytic activity/Vol] 24 U/L Normal <=37 [facility] Comment on above: Performed By: #### L 500.4050, L100.0100, L501.9910, L500.4100 #### [facility] [address] [place], [address] Bilirubin [Mass/Vol] 0.28 mg/dL Normal 0.00-1.30 [facility] Comment on above: Performed By: #### L 500.4050, L100.0100, L501.9910, L500.4100 #### [facility] [address] [place], [address] Bilirubin.direct [Mass/Vol] 0.12 mg/dL Normal 0.00-0.30 [facility] Comment on above: Performed By: #### L 500.4050, L100.0100, L501.9910, L500.4100 #### [facility] [address] [place], [address] Globulin (S) [Mass/Vol] 4.3 g/dL High 2.2-4.2 [facility] Comment on above: Performed By: #### L 500.4050, L100.0100, L501.9910, L500.4100 #### [facility] [address] [place], [address] T PROT 8.0 g/dL Normal 5.9-8.4 [facility] Comment on above: Performed By: #### L 500.4050, L100.0100, L501.9910, L500.4100 #### [facility] [address] [place], [address] MCV (mean corpuscular volume ) determinationon 11-05-2024 MCV (RBC) [Entitic vol] 92.7 fL 80-94 [facility] Mean corpuscular hemoglobin (MCH) determinationon 11-05-2024 MCH (RBC) [Entitic mass] 29.2 pg 27.0-32.0 [facility] Mean corpuscular hemoglobin concentration (MCHC) determinationon 11-05-2024 MCHC (RBC) [Mass/Vol] 31.5 g/dL Low 32-36 [facility] Mean platelet volume determi nationon 11-05-2024 Platelet mean volume (Bld) [Entitic vol] 9.3 fL 6.2-12.0 [facility] Monocyte percentageon 2024 Monocytes/100 WBC (Bld) 7.7 % 0-10 [facility] Neutrophil percentageon 10-13 Neutrophils/100 WBC (Bld) 64.7 % 47-70 [facility] Nucleated red blood cell per centageon 11-05-2024 Nucleated RBC/100 WBC (Bld) [Ratio] 0 % 0-5 [facility] Platelet counton 11-05-2024 Platelets (Bld) [#/Vol] 308 10*3/uL 150-450 [facility] Potassium measurement (mass/ volume)on 11-05-2024 Potassium (Unsp spec) [Mass/Vol] 4.4 mmol/L 3.3-5.1 [facility] RBC Auto (Bld) [#/Vol]on RBC (Bld) [#/Vol] 3.70 10*6/uL Low 4.6-6.2 [facility] Serum creatinine measurement (mass/volume)on 11-05-2024 Creatinine [Mass/Vol] 0.58 mg/dL Low 0.70-1.20 [facility] Serum globulin measurementon 11-05-2024 Globulin (S) [Mass/Vol] 4.3 g/dL High 2.2-4.2 [facility] Serum glucose measurement (m ass/volume)on 11-05-2024 Glucose [Mass/Vol] 106 mg/dL High 70-99 [facility] Serum or plasma alanine nance otransferase (ALT) measurementon 11-05-2024 ALT [Catalytic activity/Vol] 16 U/L <47 [facility] Serum or plasma albumin caesar urement (mass/volume)on 11-05-2024 Albumin [Mass/Vol] 3.7 g/dL 3.4-4.8 [facility] Serum or plasma alkaline nasim sphatase measurementon 11-05-2024 ALP [Catalytic activity/Vol] 91 U/L 40-129 [facility] Serum or plasma calcium caesar urement (mass/volume)on 11-05-2024 Calcium [Mass/Vol] 9.0 mg/dL 7.6-11.0 [facility] Serum or plasma urea nitroge n measurement (mass/volume)on 11-05-2024 Urea nitrogen [Mass/Vol] 11 mg/dL 4-19 [facility] [facility] Sodium levelon 11-05-2024 Sodium [Moles/Vol] 134 mmol/L 133-145 [facility] Total proteinon 11-05-2024 Protein [Mass/Vol] 8.0 g/dL 5.9-8.4 [facility] White blood cell (WBC) count on 11-05-2024 WBC (Bld) [#/Vol] 5.8 10*3/uL 4.4-11.0 [facility] Absolute lymphocyte countOrd ered By: Emanuel Garland on 10-22-2024 Lymphocytes Auto (Unsp spec) [#/Vol] 1.15 10*3/uL 0.83-4.51 [facility] Absolute neutrophil countOrd ered By: Emanuel Garland on 10-22-2024 Neutrophils (Bld) [#/Vol] 4.1 10*3/uL 2.0-7.7 [facility] Albumin, Serumon 10-22-2024 Albumin [Mass/Vol] 3.1 g/dL Low 3.4-4.8 [facility] Comment on above: Performed By: #### L 300.3900, L300.4310, L100.1900 #### [facility] [address] [place], [place], [id number] Anion gap in Serum or Plasma Ordered By: Emanuel Garland on 10-22-2024 Anion gap [Moles/Vol] 10 mmol/L 5-15 [facility] Automated lymphocyte count a s percentage of total leukocytesOrdered By: Emanuel Garland on 10-22-2024 Lymphocytes/100 WBC Auto (Unsp spec) 18.9 % Low 19-41 [facility] BUN/creatinine ratioOrdered By: Emanuel Garland on 10-22-2024 Urea nitrogen/Creatinine [Mass ratio] 17.1 mg/mg - [facility] Basic Metabolic Profile (BMP )on 10-22-2024 BUN/CRE 17.1 RATIO Normal 11-30 [facility] Comment on above: Performed By: #### L 300.3900, L300.4310, L100.1900 #### [facility] [address] [place], [address] Calcium [Mass/Vol] 8.8 mg/dL Normal 7.6-11.0 [facility] Comment on above: Performed By: #### L 300.3900, L300.4310, L100.1900 #### [facility] [address] [place], [address] Chloride [Moles/Vol] 101 mmol/L Normal 98-108 [facility] Comment on above: Performed By: #### L 300.3900, L300.4310, L100.1900 #### [facility] [address] [place], [address] CO2 [Moles/Vol] 24.0 mmol/L Normal 21.0-32.0 [facility] Comment on above: Performed By: #### L 300.3900, L300.4310, L100.1900 #### [facility] [address] [place], [address] Creatinine [Mass/Vol] 0.72 mg/dL Normal 0.70-1.20 [facility] Comment on above: Performed By: #### L 300.3900, L300.4310, L100.1900 #### [facility] [address] [place], [address] GAP 10 Normal 5-15 [facility] Comment on above: Performed By: #### L 300.3900, L300.4310, L100.1900 #### [facility] [address] [place], [address] GFR/1.73 sq M.predicted among non-blacks MDRD (S/P/Bld) [Vol rate/Area] 96 mL/min/{1.73_m2} Normal >60 [facility] Comment on above: Result Comment: mL/m in/1.73m2 CKD-EPI Creatinine Equation (2020) Performed By: #### L 300.3900, L300.4310, L100.1900 #### [facility] [address] [place], [address] Glucose [Mass/Vol] 95 mg/dL Normal 70-99 [facility] Comment on above: Performed By: #### L 300.3900, L300.4310, L100.1900 #### [facility] [address] [place], [address] Potassium [Moles/Vol] 4.1 mmol/L Normal 3.3-5.1 [facility] Comment on above: Performed By: #### L 300.3900, L300.4310, L100.1900 #### [facility] [address] [place], [address] Sodium [Moles/Vol] 135 mmol/L Normal 133-145 [facility] Comment on above: Performed By: #### L 300.3900, L300.4310, L100.1900 #### [facility] [address] [place], [address] Urea nitrogen [Mass/Vol] 12 mg/dL Normal 4-19 [facility] Comment on above: Performed By: #### L 300.3900, L300.4310, L100.1900 #### [facility] [address] [place], [address] Basophil percentageOrdered B y: Emanuel Garland on 10-22-2024 Basophils/100 WBC (Bld) 1.2 % High 0-1 [facility] CBC W/Diff, Automatedon 10-12 Absolute Lymph 1.15 X10 3/uL Normal 0.83-4.51 [facility] Comment on above: Performed By: #### L 300.3900, L300.4310, L100.1900 #### [facility] [address] [place], [address] Absolute Neut 4.1 X10 3/uL Normal 2.0-7.7 [facility] Comment on above: Performed By: #### L 300.3900, L300.4310, L100.1900 #### [facility] [address] [place], [address] Basophils/100 WBC (Bld) 1.2 % High 0-1 [facility] Comment on above: Performed By: #### L 300.3900, L300.4310, L100.1900 #### [facility] [address] [place], [address] Eosinophils/100 WBC (Bld) 3.3 % Normal 0-5 [facility] Comment on above: Performed By: #### L 300.3900, L300.4310, L100.1900 #### [facility] [address] [place], [address] Erythrocyte distribution width (RBC) [Ratio] 15.4 % High 11.6-14.6 [facility] Comment on above: Performed By: #### L 300.3900, L300.4310, L100.1900 #### [facility] [address] [place], [address] Hematocrit (Bld) [Volume fraction] 30.0 % Low 40-54 [facility] Comment on above: Performed By: #### L 300.3900, L300.4310, L100.1900 #### [facility] [address] [place], [address] Hemoglobin (Bld) [Mass/Vol] 9.6 g/dL Low 13.0-16.5 [facility] Comment on above: Performed By: #### L 300.3900, L300.4310, L100.1900 #### [facility] [address] [place], [address] IG% 0.500 Normal 0.0-0.9 [facility] Comment on above: Result Comment: IG% - Immature Granulocytes (promyelocytes, myelocytes and metamyelocytes) > 1% indicates that a LEFT SHIFT is Present. Performed By: #### L 300.3900, L300.4310, L100.1900 #### [facility] [address] [place], [address] Lymphocytes/100 WBC (Bld) 18.9 % Low 19-41 [facility] Comment on above: Performed By: #### L 300.3900, L300.4310, L100.1900 #### [facility] [address] [place], [address] MCH (RBC) [Entitic mass] 29.2 pg Normal 27.0-32.0 [facility] Comment on above: Performed By: #### L 300.3900, L300.4310, L100.1900 #### [facility] [address] [place], [address] MCHC (RBC) [Mass/Vol] 32.0 g/dL Normal 32-36 [facility] Comment on above: Performed By: #### L 300.3900, L300.4310, L100.1900 #### [facility] [address] [place], [address] MCV (RBC) [Entitic vol] 91.2 fL Normal 80-94 [facility] Comment on above: Performed By: #### L 300.3900, L300.4310, L100.1900 #### [facility] [address] [place], [address] Monocytes/100 WBC (Bld) 8.4 % Normal 0-10 [facility] Comment on above: Performed By: #### L 300.3900, L300.4310, L100.1900 #### [facility] [address] [place], [address] Neutrophils/100 WBC (Bld) 67.7 % Normal 47-70 [facility] Comment on above: Performed By: #### L 300.3900, L300.4310, L100.1900 #### [facility] [address] [place], [address] Nucleated RBC (Bld) [#/Vol] 0 10*3/uL Normal 0-5 [facility] Comment on above: Performed By: #### L 300.3900, L300.4310, L100.1900 #### [facility] [address] [place], [address] Platelet mean volume (Bld) [Entitic vol] 9.0 fL Normal 6.2-12.0 [facility] Comment on above: Performed By: #### L 300.3900, L300.4310, L100.1900 #### [facility] [address] [place], [address] Platelets (Bld) [#/Vol] 469 10*3/uL High 150-450 [facility] Comment on above: Performed By: #### L 300.3900, L300.4310, L100.1900 #### [facility] [address] [place], [address] RBC (Bld) [#/Vol] 3.29 10*6/uL Low 4.6-6.2 [facility] Comment on above: Performed By: #### L 300.3900, L300.4310, L100.1900 #### [facility] [address] [place], [address] RDW SD 51.4 fl High 35.1-43.9 [facility] Comment on above: Performed By: #### L 300.3900, L300.4310, L100.1900 #### [facility] [address] [place], [address] WBC (Bld) [#/Vol] 6.1 10*3/uL Normal 4.4-11.0 [facility] Comment on above: Performed By: #### L 300.3900, L300.4310, L100.1900 #### [facility] [address] [place], [address] Carbon dioxide, total [Moles /volume] in Central venous bloodOrdered By: Emanuel Garland on 10-22-2024 CO2 [Moles/Vol] 24.0 mmol/L 21.0-32.0 [facility] Chloride assayOrdered By: Mariela Garland on 10-22-2024 Chloride [Moles/Vol] 101 mmol/L 98-108 [facility] Eosinophil percentageOrdered By: Emanuel Garland on 10-22-2024 Eosinophils/100 WBC (Bld) 3.3 % 0-5 [facility] Erythrocyte distribution wid th ratioOrdered By: Emanuel Garland on 10-22-2024 Erythrocyte distribution width (RBC) [Ratio] 15.4 % High 11.6-14.6 [facility] Erythrocyte distribution wid th standard deviationOrdered By: Emanuel Garland on 10-22-2024 Erythrocyte distribution width (RBC) [Ratio] 51.4 fl High 35.1-43.9 [facility] Glomerular filtration rate ( GFR) estimation/1.73 sq m using serum, plasma, or whole bOrdered By: Emanuel Garland on 10-22-2024 GFR/1.73 sq M.predicted among non-blacks MDRD (S/P/Bld) [Vol rate/Area] 96 mL/min/{1.73_m2} >60 [facility] Comment on above: mL/min/1.73m2 CKD-EP I Creatinine Equation (2020) Hematocrit Auto (Bld) [Volum e fraction]Ordered By: Emanuel Garland on 10-22-2024 Hematocrit (Bld) [Volume fraction] 30.0 % Low 40-54 [facility] Hemoglobin measurementOrdere d By: Emanuel Garland on 10-22-2024 Hemoglobin (Bld) [Mass/Vol] 9.6 g/dL Low 13.0-16.5 [facility] Immature granulocytes/100 WB C Auto (Bld)Ordered By: Emanuel Garland on 10-22-2024 Immature granulocytes/100 WBC (Bld) 0.500 % 0.0-0.9 [facility] Comment on above: IG% - Immature Granu locytes (promyelocytes, myelocytes and metamyelocytes) > 1% indicates that a LEFT SHIFT is Present. MCV (mean corpuscular volume ) determinationOrdered By: Emanuel Garland on 10-22-2024 MCV (RBC) [Entitic vol] 91.2 fL 80-94 [facility] Magnesiumon 10-22-2024 Magnesium [Mass/Vol] 2.2 mg/dL Normal 1.5-2.2 [facility] Comment on above: Performed By: #### L 300.3900, L300.4310, L100.1900 #### [facility] [address] [place] [address], [address] Magnesium measurement (mass/ volume)Ordered By: Emanuel Garland on 10-22-2024 Magnesium (Unsp spec) [Mass/Vol] 2.2 mg/dL 1.5-2.2 [facility] Mean corpuscular hemoglobin (MCH) determinationOrdered By: Emanuel Garland on 10-22-2024 MCH (RBC) [Entitic mass] 29.2 pg 27.0-32.0 [facility] Mean corpuscular hemoglobin concentration (MCHC) determinationOrdered By: Emanuel Garland on 10-22-2024 MCHC (RBC) [Mass/Vol] 32.0 g/dL 32-36 [facility] Mean platelet volume determi nationOrdered By: Emanuel Garland on 10-22-2024 Platelet mean volume (Bld) [Entitic vol] 9.0 fL 6.2-12.0 [facility] Monocyte percentageOrdered B y: Emanuel Garland on 10-22-2024 Monocytes/100 WBC (Bld) 8.4 % 0-10 [facility] Neutrophil percentageOrdered By: Emanuel Garland on 10-22-2024 Neutrophils/100 WBC (Bld) 67.7 % 47-70 [facility] Nucleated red blood cell per centageOrdered By: Emanuel Garland on 10-22-2024 Nucleated RBC/100 WBC (Bld) [Ratio] 0 % 0-5 [facility] Platelet countOrdered By: Mariela Garland on 10-22-2024 Platelets (Bld) [#/Vol] 469 10*3/uL High 150-450 [facility] Potassium measurement (mass/ volume)Ordered By: Emanuel Garland on 10-22-2024 Potassium (Unsp spec) [Mass/Vol] 4.1 mmol/L 3.3-5.1 [facility] RBC Auto (Bld) [#/Vol]Ordere d By: Emanuel Garland on 10-22-2024 RBC (Bld) [#/Vol] 3.29 10*6/uL Low 4.6-6.2 [facility] Serum creatinine measurement (mass/volume)Ordered By: Emanuel Garland on 10-22-2024 Creatinine [Mass/Vol] 0.72 mg/dL 0.70-1.20 [facility] Serum glucose measurement (m ass/volume)Ordered By: Emanuel Garland on 10-22-2024 Glucose [Mass/Vol] 95 mg/dL 70-99 [facility] Serum or plasma albumin caesar urement (mass/volume)Ordered By: Emanuel Garland on 10-22-2024 Albumin [Mass/Vol] 3.1 g/dL Low 3.4-4.8 [facility] Serum or plasma calcium caesar urement (mass/volume)Ordered By: Emanuel Garland on 10-22-2024 Calcium [Mass/Vol] 8.8 mg/dL 7.6-11.0 [facility] Serum or plasma urea nitroge n measurement (mass/volume)Ordered By: Emanuel Garland on 10-22-2024 Urea nitrogen [Mass/Vol] 12 mg/dL 4-19 [facility] Sodium levelOrdered By: Emanuel Garland on 10-22-2024 Sodium [Moles/Vol] 135 mmol/L 133-145 [facility] White blood cell (WBC) count Ordered By: Emanuel Garland on 10-22-2024 WBC (Bld) [#/Vol] 6.1 10*3/uL 4.4-11.0 [facility] Cardiology Visit Reporton Cardiology Visit Report [facility] [address] [place], [place] [address] OFFICE VISIT Date of Service: 10/20/24 MR#: [id number] Acct: [id number] Name: MAXX FORDE Rep #: [id number] : 1950 Provider: NICOLE Bahena Age/Sex: 74/M Location: [facility] Status: Signed HPI HPI History of Present Illness Details: Maxx Forde is a 74-year-old male who presents to office today for follow-up for monitoring cardiovascular disease. Patient has a history of atrial fibrillation that was initially noted on preoperative EKG. Patient with a history of hypertension and hyperlipidemia. Patient was recently hospitalized 09/29 - 10/14/2024 and underwent left VATS, washout, pulmonary decortication 10/06/2024 for left empyema at [facility]. Hospitalization was complicated by volume overload due to HFpEF requiring aggressive IV diuresis. It is documented that he was not dry at discharge but requested discharge home. He was initiated on spironolactone. His discharge weight was 156 pounds. Upon presentation today, patient reports doing well. He was weak after prolonged hospital stay and he is feeling stronger each day. He was evaluated yesterday by home PT and patient reports PT was not planning to return due to improvement in strength. He reports weight at home 149lbs today. He denies CHF symptoms. Further ROS below. Intake Vital Signs 09/28/24 15:22 10/20/24 07:46 Height 5 ft 11 in 5 ft 11 in Weight: 154 lb BMI 21.4 BP 120/77 Blood Pressure Location Rt brachial Position Sitting Respiration 18 Pulse 58 L Pulse Source Monitor Intake Visit Reasons: S/P [facility] 10/14 [place] Required: No Is patient in pain?: No Allergies No Known Allergies Allergy (Verified 10/20/24 09:22) Medications ???Medication ???Instructions ???Recorded ???Confirmed ???Type ezetimibe 10 mg-simvastatin 20 mg 1 tab PO DAILY 02/18/14 10/20/24 History tablet cyanocobalamin (vitamin B-12) 500 500 mcg PO DAILY 06/27/21 5 History mcg tablet ammonium lactate 12 % topical cream 1 applic topical DAILY 01/28/23 10/20/24 History omeprazole 40 mg capsule,delayed 40 mg PO BID 01/28/23 10/20/24 His tory release sucralfate 1 gram tablet 1 g PO QACHS 01/28/23 10/20/24 His tory acetaminophen 500 mg tablet 500 mg PO Q6H PRN pain 09/28/24 History (Tylenol Extra Strength) ibuprofen 200 mg capsule 200 mg PO Q8H 09/28/24 10/20/24 Hi story tramadol 50 mg tablet 50 mg PO Q8H PRN PRN severe pain 0 09/28/24 10/20/24 History albuterol sulfate 2.5 mg/3 mL 2.5 mg (3 mL) inhalation Q4H PRN 0 09/29/24 10/20/24 Rx (0.083 %) solution for nebulization Sob /Or Wheezing #180 mL amoxicillin 875 mg-potassium 1 tab PO BID 10/20/24 10/20/24 His tory clavulanate 125 mg tablet apixaban 5 mg tablet (Eliquis) 5 mg PO BID 10/20/24 10/20/24 Hist ory metoprolol succinate 50 mg 50 mg PO QDAY 10/20/24 10/20/24 Hi story tablet,extended release 24 hr spironolactone 25 mg tablet 25 mg PO QDAY 10/20/24 10/20/24 Hi story Ejection fraction %: 60 Have you fallen in the past year?: No PFSH Medical History COPD (chronic obstructive pulmonary disease) Atrial fibrillation Premature atrial contractions Hyperlipidemia Essential hypertension Ventral incisional hernia Arthritis Surgical History [place] esophagus (12/2022) History of ventral hernia repair [...] Negative for fatigue Cardiology Exam Const Appearance: cooperative, comfortable, no acute distress and well developed; Negative diaphoretic or ill appearing Nutritional Appearance: average body habitus (more content not included)... Normal [facility] XR CHEST PA AND LATERAL 2 EWSon 10-19-2024 XR CHEST PA AND LATERAL 2 VIEWS EXAM: XR CHEST PA AND LATERAL 2 VIEWS, 10/19/2024 08:19 AM COMPARISON: XR CHEST 1 VIEW PORTABLE October 14, 2024 CLINICAL INDICATIONS: f/u thoracic surgery RELEVANT CLINICAL HISTORY: J90:Loculated pleural effusion FINDINGS: (Adequate technique) Implanted Devices: None Thorax: No significant change in left hydropneumothorax and the left linear atelectasis. Right lung is clear. Stable cardiomediastinal silhouette. Degenerative change of the thoracic spine. IMPRESSION: No significant change in left hydropneumothorax. I personally viewed and interpreted these images and I have reviewed and approved this report. Normal [facility] XR Chest PA and Lateralon IMPRESSION: No significant change in left hydropneumothorax. I personally viewed and interpreted these images and I have reviewed and approved this report. OLOGY EXAM: XR CHEST PA AN D LATERAL 2 VIEWS, 10/19/2024 08:19 AM COMPARISON: XR CHEST 1 VIEW PORTABLE October 14, 2024 CLINICAL INDICATIONS: f/u thoracic surgery RELEVANT CLINICAL HISTORY: J90:Loculated pleural effusion FINDINGS: (Adequate technique) Implanted Devices: None Thorax: No significant change in left hydropneumothorax and the left linear atelectasis. Right lung is clear. Stable cardiomediastinal silhouette. Degenerative change of the thoracic spine. RADIOLOGY Nacho Moss MD - 10/19/2024 EXAM: XR CHEST PA AND LATERAL 2 VIEWS, 10/19/2024 08:19 AM COMPARISON: XR CHEST 1 VIEW PORTABLE October 14, 2024 CLINICAL INDICATIONS: f/u thoracic surgery RELEVANT CLINICAL HISTORY: J90:Loculated pleural effusion FINDINGS: (Adequate technique) Implanted Devices: None Thorax: No significant change in left hydropneumothorax and the left linear atelectasis. Right lung is clear. Stable cardiomediastinal silhouette. Degenerative change of the thoracic spine. IMPRESSION IMPRESSION: No significant change in left hydropneumothorax. I personally viewed and interpreted these images and I have reviewed and approved this report. [facility] Radiology Study observation (narrative) [facility] XR Chest PA and LateralOrder ed By: Nacho Moss on 10-19-2024 [facility] Work Phone: Absolute lymphocyte countOrd ered By: Emanuel Garland on 10-16-2024 Lymphocytes Auto (Unsp spec) [#/Vol] 1.29 10*3/uL 0.83-4.51 [facility] Absolute neutrophil countOrd ered By: Emanuel Garland on 10-16-2024 Neutrophils (Bld) [#/Vol] 5.7 10*3/uL 2.0-7.7 [facility] Anion gap in Serum or Plasma Ordered By: Emanuel Garland on 10-16-2024 Anion gap [Moles/Vol] 13 mmol/L 5-15 [facility] Automated lymphocyte count a s percentage of total leukocytesOrdered By: Emanuel Garland on 10-16-2024 Lymphocytes/100 WBC Auto (Unsp spec) 16.1 % Low 19-41 [facility] BUN/creatinine ratioOrdered By: Emanuel Garland on 10-16-2024 Urea nitrogen/Creatinine [Mass ratio] 17.1 mg/mg - [facility] Basic Metabolic Profile (BMP )on 10-16-2024 BUN/CRE 17.1 RATIO Normal - [facility] Comment on above: Performed By: #### L 500.4050, L100.0100, L501.9910, L500.4100 #### [facility] [address] [place], [address] Calcium [Mass/Vol] 8.8 mg/dL Normal 7.6-11.0 [facility] Comment on above: Performed By: #### L 500.4050, L100.0100, L501.9910, L500.4100 #### [facility] [address] [place], [address] Chloride [Moles/Vol] 96 mmol/L Low 98-108 [facility] Comment on above: Performed By: #### L 500.4050, L100.0100, L501.9910, L500.4100 #### [facility] [address] [place], [address] CO2 [Moles/Vol] 24.5 mmol/L Normal 21.0-32.0 [facility] Comment on above: Performed By: #### L 500.4050, L100.0100, L501.9910, L500.4100 #### [facility] [address] [place], [address] Creatinine [Mass/Vol] 0.82 mg/dL Normal 0.70-1.20 [facility] Comment on above: Performed By: #### L 500.4050, L100.0100, L501.9910, L500.4100 #### [facility] [address] [place], [address] GAP 13 Normal 5-15 [facility] Comment on above: Performed By: #### L 500.4050, L100.0100, L501.9910, L500.4100 #### [facility] [address] [place], [address] GFR/1.73 sq M.predicted among non-blacks MDRD (S/P/Bld) [Vol rate/Area] 92 mL/min/{1.73_m2} Normal >60 [facility] Comment on above: Result Comment: mL/m in/1.73m2 CKD-EPI Creatinine Equation (2020) Performed By: #### L 500.4050, L100.0100, L501.9910, L500.4100 #### [facility] [address] [place], [address] Glucose [Mass/Vol] 117 mg/dL High 70-99 [facility] Comment on above: Performed By: #### L 500.4050, L100.0100, L501.9910, L500.4100 #### [facility] [address] [place], [address] Potassium [Moles/Vol] 3.7 mmol/L Normal 3.3-5.1 [facility] Comment on above: Performed By: #### L 500.4050, L100.0100, L501.9910, L500.4100 #### [facility] [address] [place], [address] Sodium [Moles/Vol] 134 mmol/L Normal 133-145 [facility] Comment on above: Performed By: #### L 500.4050, L100.0100, L501.9910, L500.4100 #### [facility] [address] [place], [address] Urea nitrogen [Mass/Vol] 14 mg/dL Normal 4-19 [facility] Comment on above: Performed By: #### L 500.4050, L100.0100, L501.9910, L500.4100 #### [facility] [address] [place], [address] Basophil percentageOrdered B y: Emanuel Garland on 10-16-2024 Basophils/100 WBC (Bld) 1.5 % High 0-1 [facility] CBC W/Diff, Automatedon Absolute Lymph 1.29 X10 3/uL Normal 0.83-4.51 [facility] Comment on above: Performed By: #### L 500.4050, L100.0100, L501.9910, L500.4100 #### [facility] [address] [place], [address] Absolute Neut 5.7 X10 3/uL Normal 2.0-7.7 [facility] Comment on above: Performed By: #### L 500.4050, L100.0100, L501.9910, L500.4100 #### [facility] [address] [place], [address] Basophils/100 WBC (Bld) 1.5 % High 0-1 [facility] Comment on above: Performed By: #### L 500.4050, L100.0100, L501.9910, L500.4100 #### [facility] [address] [place], [address] Eosinophils/100 WBC (Bld) 1.8 % Normal 0-5 [facility] Comment on above: Performed By: #### L 500.4050, L100.0100, L501.9910, L500.4100 #### [facility] [address] [place], [address] Erythrocyte distribution width (RBC) [Ratio] 14.3 % Normal 11.6-14.6 [facility] Comment on above: Performed By: #### L 500.4050, L100.0100, L501.9910, L500.4100 #### [facility] [address] [place], [address] Hematocrit (Bld) [Volume fraction] 29.9 % Low 40-54 [facility] Comment on above: Performed By: #### L 500.4050, L100.0100, L501.9910, L500.4100 #### [facility] [address] [place], [address] Hemoglobin (Bld) [Mass/Vol] 9.8 g/dL Low 13.0-16.5 [facility] Comment on above: Performed By: #### L 500.4050, L100.0100, L501.9910, L500.4100 #### [facility] [address] [place], [address] IG% 0.600 Normal 0.0-0.9 [facility] Comment on above: Result Comment: IG% - Immature Granulocytes (promyelocytes, myelocytes and metamyelocytes) > 1% indicates that a LEFT SHIFT is Present. Performed By: #### L 500.4050, L100.0100, L501.9910, L500.4100 #### [facility] [address] [place], [address] Lymphocytes/100 WBC (Bld) 16.1 % Low 19-41 [facility] Comment on above: Performed By: #### L 500.4050, L100.0100, L501.9910, L500.4100 #### [facility] [address] [place], [address] MCH (RBC) [Entitic mass] 29.5 pg Normal 27.0-32.0 [facility] Comment on above: Performed By: #### L 500.4050, L100.0100, L501.9910, L500.4100 #### [facility] [address] [place], [address] MCHC (RBC) [Mass/Vol] 32.8 g/dL Normal 32-36 [facility] [facility] Comment on above: Performed By: #### L 500.4050, L100.0100, L501.9910, L500.4100 #### [facility] [address] [place], [address] MCV (RBC) [Entitic vol] 90.1 fL Normal 80-94 [facility] Comment on above: Performed By: #### L 500.4050, L100.0100, L501.9910, L500.4100 #### [facility] [address] [place], [address] Monocytes/100 WBC (Bld) 9.4 % Normal 0-10 [facility] Comment on above: Performed By: #### L 500.4050, L100.0100, L501.9910, L500.4100 #### [facility] [address] [place], [address] Neutrophils/100 WBC (Bld) 70.6 % High 47-70 [facility] Comment on above: Performed By: #### L 500.4050, L100.0100, L501.9910, L500.4100 #### [facility] [address] [place], [address] Nucleated RBC (Bld) [#/Vol] 0 10*3/uL Normal 0-5 [facility] Comment on above: Performed By: #### L 500.4050, L100.0100, L501.9910, L500.4100 #### [facility] [address] [place], [address] Platelet mean volume (Bld) [Entitic vol] 9.3 fL Normal 6.2-12.0 [facility] Comment on above: Performed By: #### L 500.4050, L100.0100, L501.9910, L500.4100 #### [facility] [address] [place], [address] Platelets (Bld) [#/Vol] 512 10*3/uL High 150-450 [facility] Comment on above: Performed By: #### L 500.4050, L100.0100, L501.9910, L500.4100 #### [facility] [address] [place], [address] RBC (Bld) [#/Vol] 3.32 10*6/uL Low 4.6-6.2 [facility] Comment on above: Performed By: #### L 500.4050, L100.0100, L501.9910, L500.4100 #### [facility] [address] [place], [address] RDW SD 46.9 fl High 35.1-43.9 [facility] Comment on above: Performed By: #### L 500.4050, L100.0100, L501.9910, L500.4100 #### [facility] [address] [place], [address] WBC (Bld) [#/Vol] 8.0 10*3/uL Normal 4.4-11.0 [facility] Comment on above: Performed By: #### L 500.4050, L100.0100, L501.9910, L500.4100 #### [facility] [address] [place], [address] Carbon dioxide, total [Moles /volume] in Central venous bloodOrdered By: Emanuel Garland on 10-16-2024 CO2 [Moles/Vol] 24.5 mmol/L 21.0-32.0 [facility] Chloride assayOrdered By: Mariela Garland on 10-16-2024 Chloride [Moles/Vol] 96 mmol/L Low 98-108 [facility] Eosinophil percentageOrdered By: Emanuel Garland on 10-16-2024 Eosinophils/100 WBC (Bld) 1.8 % 0-5 [facility] Erythrocyte distribution wid th ratioOrdered By: Emanuel Garland on 10-16-2024 Erythrocyte distribution width (RBC) [Ratio] 14.3 % 11.6-14.6 [facility] Erythrocyte distribution wid th standard deviationOrdered By: Emanuel Garland on 10-16-2024 Erythrocyte distribution width (RBC) [Ratio] 46.9 fl High 35.1-43.9 [facility] Glomerular filtration rate ( GFR) estimation/1.73 sq m using serum, plasma, or whole bOrdered By: Emanuel Garland on 10-16-2024 GFR/1.73 sq M.predicted among non-blacks MDRD (S/P/Bld) [Vol rate/Area] 92 mL/min/{1.73_m2} >60 [facility] Comment on above: mL/min/1.73m2 CKD-EP I Creatinine Equation (2020) Hematocrit Auto (Bld) [Volum e fraction]Ordered By: Emanuel Garland on 10-16-2024 Hematocrit (Bld) [Volume fraction] 29.9 % Low 40-54 [facility] Hemoglobin measurementOrdere d By: Emanuel Garland on 10-16-2024 Hemoglobin (Bld) [Mass/Vol] 9.8 g/dL Low 13.0-16.5 [facility] Immature granulocytes/100 WB C Auto (Bld)Ordered By: Emanuel Garland on 10-16-2024 Immature granulocytes/100 WBC (Bld) 0.600 % 0.0-0.9 [facility] Comment on above: IG% - Immature Granu locytes (promyelocytes, myelocytes and metamyelocytes) > 1% indicates that a LEFT SHIFT is Present. MCV (mean corpuscular volume ) determinationOrdered By: Emanuel Garland on 10-16-2024 MCV (RBC) [Entitic vol] 90.1 fL 80-94 [facility] Magnesiumon 10-16-2024 Magnesium [Mass/Vol] 2.3 mg/dL High 1.5-2.2 [facility] Comment on above: Performed By: #### L 500.4050, L100.0100, L501.9910, L500.4100 #### [facility] [place], [address] Magnesium measurement (mass/ volume)Ordered By: Emanuel Garland on 10-16-2024 Magnesium (Unsp spec) [Mass/Vol] 2.3 mg/dL High 1.5-2.2 [facility] Mean corpuscular hemoglobin (MCH) determinationOrdered By: Emanuel Garland on 10-16-2024 MCH (RBC) [Entitic mass] 29.5 pg 27.0-32.0 [facility] Mean corpuscular hemoglobin concentration (MCHC) determinationOrdered By: Emanuel Garland on 10-16-2024 MCHC (RBC) [Mass/Vol] 32.8 g/dL 32-36 [facility] Mean platelet volume determi nationOrdered By: Emanuel Garland on 10-16-2024 Platelet mean volume (Bld) [Entitic vol] 9.3 fL 6.2-12.0 [facility] Monocyte percentageOrdered B y: Emanuel Garland on 10-16-2024 Monocytes/100 WBC (Bld) 9.4 % 0-10 [facility] Neutrophil percentageOrdered By: Emanuel Garland on 10-16-2024 Neutrophils/100 WBC (Bld) 70.6 % High 47-70 [facility] Nucleated red blood cell per centageOrdered By: Emanuel Garland on 10-16-2024 Nucleated RBC/100 WBC (Bld) [Ratio] 0 % 0-5 [facility] Platelet countOrdered By: Mariela Garland on 10-16-2024 Platelets (Bld) [#/Vol] 512 10*3/uL High 150-450 [facility] Potassium measurement (mass/ volume)Ordered By: Emanuel Garland on 10-16-2024 Potassium (Unsp spec) [Mass/Vol] 3.7 mmol/L 3.3-5.1 [facility] RBC Auto (Bld) [#/Vol]Ordere d By: Emanuel Garland on 10-16-2024 RBC (Bld) [#/Vol] 3.32 10*6/uL Low 4.6-6.2 [facility] Serum creatinine measurement (mass/volume)Ordered By: Emanuel Garland on 10-16-2024 Creatinine [Mass/Vol] 0.82 mg/dL 0.70-1.20 [facility] Serum glucose measurement (m ass/volume)Ordered By: Emanuel Garland on 10-16-2024 Glucose [Mass/Vol] 117 mg/dL High 70-99 [facility] Serum or plasma calcium caesar urement (mass/volume)Ordered By: Emanuel Garland on 10-16-2024 Calcium [Mass/Vol] 8.8 mg/dL 7.6-11.0 [facility] Serum or plasma urea nitroge n measurement (mass/volume)Ordered By: Emanuel Garland on 10-16-2024 Urea nitrogen [Mass/Vol] 14 mg/dL 4-19 [facility] Sodium levelOrdered By: Emanuel Garland on 10-16-2024 Sodium [Moles/Vol] 134 mmol/L 133-145 [facility] White blood cell (WBC) count Ordered By: Emanuel Garland on 10-16-2024 WBC (Bld) [#/Vol] 8.0 10*3/uL 4.4-11.0 [facility] CBC,PLATELETSon 10-14-2024 Erythrocyte distribution width (RBC) [Ratio] 14.0 % 10.9 - 14.3 % [facility] Hematocrit (Bld) [Volume fraction] 25.3 % Low 39.6 - 48.8 % [facility] Hemoglobin (Bld) [Mass/Vol] 8.1 g/dL Low 13.4 - 16.8 g/dL [facility] Interpretation and review of laboratory results Abnormal [facility] MCH (RBC) [Entitic mass] 28.6 pg 26.1 - 33.3 pg [facility] MCHC (RBC) [Mass/Vol] 32.0 g/dL 31.9 - 36.5 g/dL [facility] MCV (RBC) [Entitic vol] 89.4 fL 79.0 - 94.5 fL [facility] Platelet mean volume (Bld) [Entitic vol] 8.8 fL 8.7 - 12.3 fL [facility] Platelets (Bld) [#/Vol] 415 10*3/uL High 146 - 337 K/uL [facility] RBC (Bld) [#/Vol] 2.83 10*6/uL Low [facility] WBC (Bld) [#/Vol] 6.28 10*3/uL 3.73 - 10. 10 K/uL [facility] Hematocrit (Bld) [Volume fraction] 25.3 % Low 39.6-48.8 [facility] Comment on above: Performed By: #### Diana GREGG, XM #### [facility] (DEFAULT) [address] [address] Hemoglobin (Bld) [Mass/Vol] 8.1 g/dL Low 13.4-16.8 [facility] Comment on above: Performed By: #### Diana GREGG, XM #### [facility] (DEFAULT) [address] [address] MCV (RBC) [Entitic vol] 89.4 fL Normal 79.0-94.5 [facility] Comment on above: Performed By: #### Diana GREGG, XM #### [facility] (DEFAULT) [address] [address] Mean Cell Hgb 28.6 pg Normal 26.1-33.3 [facility] Comment on above: Performed By: #### Diana GREGG, XM #### [facility] (DEFAULT) [address] [address] Mean Cell Hgb Conc 32.0 g/dL Normal 31.9-36.5 [facility] Comment on above: Performed By: #### Diana GREGG, XM #### [facility] (DEFAULT) [address] [address] Platelet mean volume (Bld) [Entitic vol] 8.8 fL Normal 8.7-12.3 [facility] Comment on above: Performed By: #### Diana GREGG, XM #### [facility] (DEFAULT) [address] [place] [address] Platelets (Bld) [#/Vol] 415 10*3/uL High 146-337 [facility] Comment on above: Performed By: #### Diana GREGG, XM #### [facility] (DEFAULT) [address] [place] [address] RBC (Bld) [#/Vol] 2.83 10*6/uL Low 4.38-5.83 [facility] Comment on above: Performed By: #### Diana GREGG, XM #### [facility] (DEFAULT) [address] [place] [address] RBC Distribution 14.0 % Normal 10.9-14.3 [facility] Comment on above: Performed By: #### Diana GREGG, XM #### [facility] (DEFAULT) [address] [place] [address] WBC (Bld) [#/Vol] 6.28 10*3/uL Normal 3.73-10.10 [facility] Comment on above: Performed By: #### Diana GREGG, XM #### [facility] (DEFAULT) [address] [place] [address] CHEM 7 (LYTES,BUN,CREA,GLUC) Ordered By: Geovani Long on 10-14-2024 Anion gap [Moles/Vol] 11 mmol/L 7 - 17 mmol/L [facility] Chloride [Moles/Vol] 99 mmol/L 98 - 10 8 mmol/L [facility] CO2 [Moles/Vol] 30 mmol/L 21 - 31 mmol/L [facility] Creatinine [Mass/Vol] 0.71 mg/dL 0.70 - 1.30 mg/dL [facility] eGFR, CKD-EPI, Male - PINF [facility] Glucose [Mass/Vol] 113 mg/dL 70 - 179 mg/dL [facility] Interpretation and review of laboratory results Abnormal [facility] Osmolality Calc [Osmolality] 287 [facility] Potassium [Moles/Vol] 3.1 mmol/L Low 3.5 - 5.0 mmol/L [facility] Sodium [Moles/Vol] 137 mmol/L 135 - 145 mmol/L [facility] Urea nitrogen [Mass/Vol] 15 mg/dL 7 - 25 mg/dL [facility] Urea nitrogen/Creatinine [Mass ratio] 21 mg/mg [facility] CHEM 7 (LYTES,BUN,CREA,GLUC) on 10-14-2024 Anion gap [Moles/Vol] 11 mmol/L Normal 7-17 [facility] Comment on above: Performed By: #### C A, IPB, MGO, CHM7, HFP, OSMO #### [facility] (DEFAULT) [address] [place] [address] Chloride [Moles/Vol] 99 mmol/L Normal 98-108 [facility] Comment on above: Performed By: #### C A, IPB, MGO, CHM7, HFP, OSMO #### [facility] (DEFAULT) [address] [place] [address] CO2 [Moles/Vol] 30 mmol/L Normal 21-31 [facility] Comment on above: Performed By: #### C A, IPB, MGO, CHM7, HFP, OSMO #### [facility] (DEFAULT) [address] [place] [address] Creatinine [Mass/Vol] 0.71 mg/dL Normal 0.70-1.30 [facility] Comment on above: Performed By: #### C A, IPB, MGO, CHM7, HFP, OSMO #### [facility] (DEFAULT) [address] [place] [address] eGFR, CKD-EPI, Male > Normal >=60 [facility] Comment on above: Result Comment: Repo rted eGFR is based on the CKD-EPI 2020 equation using creatinine, age, and sex. Performed By: #### C A, IPB, MGO, CHM7, HFP, OSMO #### [facility] (DEFAULT) [address] [place] [address] Glucose [Mass/Vol] 113 mg/dL Normal Nonfastin -179 mg/dL; Fastin-99 [facility] Comment on above: Performed By: #### C A, IPB, MGO, CHM7, HFP, OSMO #### [facility] (DEFAULT) [address] [place] [address] Osmolality [Osmolality] 287 mosm/kg Normal 278-305 [facility] Comment on above: Performed By: #### C A, IPB, MGO, CHM7, HFP, OSMO #### [facility] (DEFAULT) [address] [place] [address] Potassium [Moles/Vol] 3.1 mmol/L Low 3.5-5.0 [facility] Comment on above: Performed By: #### C A, IPB, MGO, CHM7, HFP, OSMO #### [facility] (DEFAULT) [address] [place] [address] Sodium [Moles/Vol] 137 mmol/L Normal 135-145 [facility] Comment on above: Performed By: #### C A, IPB, MGO, CHM7, HFP, OSMO #### [facility] (DEFAULT) [address] [place] [address] Urea nitrogen [Mass/Vol] 15 mg/dL Normal 7-25 [facility] Comment on above: Performed By: #### C A, IPB, MGO, CHM7, HFP, OSMO #### [facility] (DEFAULT) [address] [place] [address] Urea nitrogen/Creatinine [Mass ratio] 21 mg/mg Normal [facility] Comment on above: Performed By: #### C A, IPB, MGO, CHM7, HFP, OSMO #### [facility] (DEFAULT) [address] [place] [address] MAGNESIUMon 10-14-2024 Interpretation and review of laboratory results Normal [facility] Magnesium [Mass/Vol] 1.8 mg/dL 1.6 - 2 .6 mg/dL [facility] Magnesium [Mass/Vol] 1.8 mg/dL Normal 1.6-2.6 [facility] Comment on above: Performed By: #### C A, IPB, MGO, CHM7, HFP, OSMO #### [facility] (DEFAULT) [address] [place] [address] Portable XR Chest Viewson RADIOLOGY RADIOLOGY [facility] Radiology Study observation (narrative) [facility] XR CHEST 1 VIEW PORTABLEon 0 10-14-2024 XR CHEST 1 VIEW PORTABLE EXAM: XR CHEST 1 VIEW PORTABLE, 10/14/2024 06:08 AM COMPARISON: October 09, 2024 CLINICAL INDICATIONS: r/o ptx RELEVANT CLINICAL HISTORY: FINDINGS: (Adequate technique) Slightly improved left hydropneumothorax. Right lung is clear. Stable cardiomediastinal silhouette. No interval bone findings. IMPRESSION: Slightly improved left hydropneumothorax. Normal [facility] CBC,PLATELETSon 10-13-2024 Erythrocyte distribution width (RBC) [Ratio] 14.3 % 10.9 - 14.3 % [facility] Hematocrit (Bld) [Volume fraction] 24.7 % Low 39.6 - 48.8 % [facility] Hemoglobin (Bld) [Mass/Vol] 7.9 g/dL Low 13.4 - 16.8 g/dL [facility] Interpretation and review of laboratory results Abnormal [facility] MCH (RBC) [Entitic mass] 28.7 pg 26.1 - 33.3 pg [facility] MCHC (RBC) [Mass/Vol] 32.0 g/dL 31.9 - 36.5 g/dL [facility] MCV (RBC) [Entitic vol] 89.8 fL 79.0 - 94.5 fL [facility] Platelet mean volume (Bld) [Entitic vol] 8.9 fL 8.7 - 12.3 fL [facility] Platelets (Bld) [#/Vol] 407 10*3/uL High 146 - 337 K/uL [facility] RBC (Bld) [#/Vol] 2.75 10*6/uL Low [facility] WBC (Bld) [#/Vol] 6.23 10*3/uL 3.73 - 10. 10 K/uL [facility] Hematocrit (Bld) [Volume fraction] 24.7 % Low 39.6-48.8 [facility] Comment on above: Performed By: #### C A, IPB, MGO, CHM7, HFP, OSMO #### [facility] (DEFAULT) [address] [place] [address] Hemoglobin (Bld) [Mass/Vol] 7.9 g/dL Low 13.4-16.8 [facility] Comment on above: Performed By: #### C A, IPB, MGO, CHM7, HFP, OSMO #### [facility] (DEFAULT) [address] [place] [address] MCV (RBC) [Entitic vol] 89.8 fL Normal 79.0-94.5 [facility] Comment on above: Performed By: #### C A, IPB, MGO, CHM7, HFP, OSMO #### [facility] (DEFAULT) [address] [place] [address] Mean Cell Hgb 28.7 pg Normal 26.1-33.3 [facility] Comment on above: Performed By: #### C A, IPB, MGO, CHM7, HFP, OSMO #### [facility] (DEFAULT) [address] [place] [address] Mean Cell Hgb Conc 32.0 g/dL Normal 31.9-36.5 [facility] Comment on above: Performed By: #### C A, IPB, MGO, CHM7, HFP, OSMO #### [facility] (DEFAULT) [address] [place] [address] Platelet mean volume (Bld) [Entitic vol] 8.9 fL Normal 8.7-12.3 [facility] Comment on above: Performed By: #### C A, IPB, MGO, CHM7, HFP, OSMO #### [facility] (DEFAULT) [address] [place] [address] Platelets (Bld) [#/Vol] 407 10*3/uL High 146-337 [facility] Comment on above: Performed By: #### C A, IPB, MGO, CHM7, HFP, OSMO #### [facility] (DEFAULT) [address] [place] [address] RBC (Bld) [#/Vol] 2.75 10*6/uL Low 4.38-5.83 [facility] Comment on above: Performed By: #### C A, IPB, MGO, CHM7, HFP, OSMO #### [facility] (DEFAULT) [address] [place] [address] RBC Distribution 14.3 % Normal 10.9-14.3 [facility] Comment on above: Performed By: #### C A, IPB, MGO, CHM7, HFP, OSMO #### [facility] (DEFAULT) [address] [place] [address] WBC (Bld) [#/Vol] 6.23 10*3/uL Normal 3.73-10.10 [facility] Comment on above: Performed By: #### C A, IPB, MGO, CHM7, HFP, OSMO #### [facility] (DEFAULT) [address] [place] [address] CHEM 7 (LYTES,BUN,CREA,GLUC) on 10-13-2024 Anion gap [Moles/Vol] 11 mmol/L 7 - 17 mmol/L [facility] Chloride [Moles/Vol] 98 mmol/L 98 - 10 8 mmol/L [facility] CO2 [Moles/Vol] 30 mmol/L 21 - 31 mmol/L [facility] Creatinine [Mass/Vol] 0.72 mg/dL 0.70 - 1.30 mg/dL [facility] eGFR, CKD-EPI, Male - PINF [facility] Glucose [Mass/Vol] 105 mg/dL 70 - 179 mg/dL [facility] Osmolality Calc [Osmolality] 284 [facility] Potassium [Moles/Vol] 4.3 mmol/L 3.5 - 5.0 mmol/L [facility] Sodium [Moles/Vol] 135 mmol/L 135 - 145 mmol/L [facility] Urea nitrogen [Mass/Vol] 12 mg/dL 7 - 25 mg/dL [facility] Urea nitrogen/Creatinine [Mass ratio] 17 mg/mg [facility] Anion gap [Moles/Vol] 11 mmol/L Normal 7-17 [facility] Comment on above: Performed By: #### H [facility] #### [facility] (DEFAULT) [address] [address] Chloride [Moles/Vol] 98 mmol/L Normal 98-108 [facility] Comment on above: Performed By: #### H [facility] #### [facility] (DEFAULT) [address] [place] [address] CO2 [Moles/Vol] 30 mmol/L Normal 21-31 [facility] Comment on above: Performed By: #### H [facility] #### [facility] (DEFAULT) [address] [place] [address] Creatinine [Mass/Vol] 0.72 mg/dL Normal 0.70-1.30 [facility] Comment on above: Performed By: #### H [facility] #### [facility] (DEFAULT) [address] [place] [address] eGFR, CKD-EPI, Male > Normal >=60 [facility] Comment on above: Result Comment: Repo rted eGFR is based on the CKD-EPI 2020 equation using creatinine, age, and sex. Performed By: #### H EMOGC #### [facility] (DEFAULT) [address] [place] [address] Glucose [Mass/Vol] 105 mg/dL Normal Nonfastin -179 mg/dL; Fastin-99 [facility] Comment on above: Performed By: #### H EMOGC #### [facility] (DEFAULT) [address] [place] [address] Osmolality [Osmolality] 284 mosm/kg Normal 278-305 [facility] Comment on above: Performed By: #### H EMOGC #### [facility] (DEFAULT) [address] [place] [address] Potassium [Moles/Vol] 4.3 mmol/L Normal 3.5-5.0 [facility] Comment on above: Result Comment: Spec imen slightly hemolyzed. Potassium results may be falsey elevated by more than 0.5 mmol/L. Consider recollection. Performed By: #### H EMOGC #### [facility] (DEFAULT) [address] [place] [address] Sodium [Moles/Vol] 135 mmol/L Normal 135-145 [facility] Comment on above: Performed By: #### H EMOGC #### [facility] (DEFAULT) [address] [place] [address] Urea nitrogen [Mass/Vol] 12 mg/dL Normal 7-25 [facility] Comment on above: Performed By: #### H EMOGC #### [facility] (DEFAULT) [address] [place] [address] Urea nitrogen/Creatinine [Mass ratio] 17 mg/mg Normal [facility] Comment on above: Performed By: #### H EMOGC #### [facility] (DEFAULT) [address] [place] [address] FERRITINon 10-13-2024 Ferritin [Mass/Vol] 232.3 ng/mL 10.5 - 3 07.3 ng/mL [facility] Interpretation and review of laboratory results Normal [facility] Ferritin [Mass/Vol] 232.3 ng/mL Normal 10.5-307.3 [facility] Comment on above: Performed By: #### C A, IPB, MGO, CHM7, HFP, OSMO #### [facility] (DEFAULT) [address] [place] [address] IRON/IRON BINDING/TRANSFERRI Non 10-13-2024 Interpretation and review of laboratory results Abnormal [facility] Iron [Mass/Vol] 39 ug/dL Low [facility] Iron binding capacity [Mass/Vol] 195 Low [facility] Iron saturation [Mass fraction] 20 % 20 - 55 % [facility] Transferrin [Mass/Vol] 156 mg/dL Low 200 - 400 mg/dL [facility] Iron [Mass/Vol] 39 ug/dL Low 40-174 [facility] Comment on above: Performed By: #### C A, IPB, MGO, CHM7, HFP, OSMO #### [facility] (DEFAULT) [address] [place] [address] Iron Saturation 20 % Normal 20-55 [facility] Comment on above: Performed By: #### C A, IPB, MGO, CHM7, HFP, OSMO #### [facility] (DEFAULT) [address] [place] [address] Total Iron Binding Capacity 195 mcg/dL Low 250-425 [facility] Comment on above: Performed By: #### C A, IPB, MGO, CHM7, HFP, OSMO #### [facility] (DEFAULT) [address] [place] [address] Transferrin [Mass/Vol] 156 mg/dL Low 200-400 [facility] Comment on above: Performed By: #### C A, IPB, MGO, CHM7, HFP, OSMO #### [facility] (DEFAULT) [address] [place] [address] MAGNESIUMon 10-13-2024 Interpretation and review of laboratory results Normal [facility] Magnesium [Mass/Vol] 1.9 mg/dL 1.6 - 2 .6 mg/dL [facility] Magnesium [Mass/Vol] 1.9 mg/dL Normal 1.6-2.6 [facility] Comment on above: Performed By: #### [facility] #### [facility] (DEFAULT) [address] [place] [address] No Panel Informationon 10-13 [facility] CARDIAC RHYTHMon 10-12-2024 [facility] CBC,PLATELETSon 10-12-2024 Erythrocyte distribution width (RBC) [Ratio] 14.0 % 10.9 - 14.3 % [facility] Hematocrit (Bld) [Volume fraction] 24.1 % Low 39.6 - 48.8 % [facility] Hemoglobin (Bld) [Mass/Vol] 7.8 g/dL Low 13.4 - 16.8 g/dL [facility] Interpretation and review of laboratory results Abnormal [facility] MCH (RBC) [Entitic mass] 29.2 pg 26.1 - 33.3 pg [facility] MCHC (RBC) [Mass/Vol] 32.4 g/dL 31.9 - 36.5 g/dL [facility] MCV (RBC) [Entitic vol] 90.3 fL 79.0 - 94.5 fL [facility] Platelet mean volume (Bld) [Entitic vol] 8.5 fL Low 8.7 - 12.3 fL [facility] Platelets (Bld) [#/Vol] 441 10*3/uL High 146 - 337 K/uL [facility] RBC (Bld) [#/Vol] 2.67 10*6/uL Low [facility] WBC (Bld) [#/Vol] 7.17 10*3/uL 3.73 - 10. 10 K/uL [facility] Hematocrit (Bld) [Volume fraction] 24.1 % Low 39.6-48.8 [facility] Comment on above: Performed By: #### H EMOGC #### [facility] (DEFAULT) [address] [address] Hemoglobin (Bld) [Mass/Vol] 7.8 g/dL Low 13.4-16.8 [facility] Comment on above: Performed By: #### H EMOGC #### [facility] (DEFAULT) [address] [address] MCV (RBC) [Entitic vol] 90.3 fL Normal 79.0-94.5 [facility] Comment on above: Performed By: #### H EMOGC #### [facility] (DEFAULT) [address] [address] Mean Cell Hgb 29.2 pg Normal 26.1-33.3 [facility] Comment on above: Performed By: #### H EMOGC #### [facility] (DEFAULT) [address] [address] Mean Cell Hgb Conc 32.4 g/dL Normal 31.9-36.5 [facility] Comment on above: Performed By: #### H EMOGC #### [facility] (DEFAULT) [address] [address] Platelet mean volume (Bld) [Entitic vol] 8.5 fL Low 8.7-12.3 [facility] Comment on above: Performed By: #### H EMOGC #### [facility] (DEFAULT) [address] [address] Platelets (Bld) [#/Vol] 441 10*3/uL High 146-337 [facility] Comment on above: Performed By: #### [facility] #### [facility] (DEFAULT) [address] [place] [address] RBC (Bld) [#/Vol] 2.67 10*6/uL Low 4.38-5.83 [facility] Comment on above: Performed By: #### [facility] #### [facility] (DEFAULT) [address] [place] [address] RBC Distribution 14.0 % Normal 10.9-14.3 [facility] Comment on above: Performed By: #### [facility] #### [facility] (DEFAULT) [address] [place] [address] WBC (Bld) [#/Vol] 7.17 10*3/uL Normal 3.73-10.10 [facility] Comment on above: Performed By: #### [facility] #### [facility] (DEFAULT) [address] [place] [address] CHEM 7 (LYTES,BUN,CREA,GLUC) on 10-12-2024 Anion gap [Moles/Vol] 13 mmol/L 7 - 17 mmol/L [facility] Chloride [Moles/Vol] 99 mmol/L 98 - 10 8 mmol/L [facility] CO2 [Moles/Vol] 28 mmol/L 21 - 31 mmol/L [facility] Creatinine [Mass/Vol] 0.62 mg/dL Low 0.70 - 1.30 mg/dL [facility] eGFR, CKD-EPI, Male - PINF [facility] Glucose [Mass/Vol] 102 mg/dL 70 - 179 mg/dL [facility] Interpretation and review of laboratory results Abnormal [facility] Osmolality Calc [Osmolality] 285 [facility] Potassium [Moles/Vol] 3.6 mmol/L 3.5 - 5.0 mmol/L [facility] Sodium [Moles/Vol] 136 mmol/L 135 - 145 mmol/L [facility] Urea nitrogen [Mass/Vol] 13 mg/dL 7 - 25 mg/dL [facility] Urea nitrogen/Creatinine [Mass ratio] 21 mg/mg [facility] Anion gap [Moles/Vol] 13 mmol/L Normal 7-17 [facility] Comment on above: Performed By: #### C A, IPB, MGO, CHM7, HFP, OSMO #### [facility] (DEFAULT) [address] [place] [address] Chloride [Moles/Vol] 99 mmol/L Normal 98-108 [facility] Comment on above: Performed By: #### C A, IPB, MGO, CHM7, HFP, OSMO #### [facility] (DEFAULT) [address] [place] [address] CO2 [Moles/Vol] 28 mmol/L Normal 21-31 [facility] Comment on above: Performed By: #### C A, IPB, MGO, CHM7, HFP, OSMO #### [facility] (DEFAULT) [address] [place] [address] Creatinine [Mass/Vol] 0.62 mg/dL Low 0.70-1.30 [facility] Comment on above: Performed By: #### C A, IPB, MGO, CHM7, HFP, OSMO #### [facility] (DEFAULT) [address] [place] [address] eGFR, CKD-EPI, Male > Normal >=60 [facility] Comment on above: Result Comment: Repo rted eGFR is based on the CKD-EPI 2020 equation using creatinine, age, and sex. Performed By: #### C A, IPB, MGO, CHM7, HFP, OSMO #### [facility] (DEFAULT) [address] [place] [address] Glucose [Mass/Vol] 102 mg/dL Normal Nonfastin -179 mg/dL; Fastin-99 [facility] Comment on above: Performed By: #### C A, IPB, MGO, CHM7, HFP, OSMO #### [facility] (DEFAULT) [address] [place] [address] Osmolality [Osmolality] 285 mosm/kg Normal 278-305 [facility] Comment on above: Performed By: #### C A, IPB, MGO, CHM7, HFP, OSMO #### [facility] (DEFAULT) [address] [place] [address] Potassium [Moles/Vol] 3.6 mmol/L Normal 3.5-5.0 [facility] Comment on above: Performed By: #### C A, IPB, MGO, CHM7, HFP, OSMO #### [facility] (DEFAULT) [address] [place] [address] Sodium [Moles/Vol] 136 mmol/L Normal 135-145 [facility] Comment on above: Performed By: #### C A, IPB, MGO, CHM7, HFP, OSMO #### [facility] (DEFAULT) [address] [place] [address] Urea nitrogen [Mass/Vol] 13 mg/dL Normal 7-25 [facility] Comment on above: Performed By: #### C A, IPB, MGO, CHM7, HFP, OSMO #### [facility] (DEFAULT) [address] [place] [address] Urea nitrogen/Creatinine [Mass ratio] 21 mg/mg Normal [facility] Comment on above: Performed By: #### C A, IPB, MGO, CHM7, HFP, OSMO #### [facility] (DEFAULT) [address] [place] [address] MAGNESIUMon 10-12-2024 Interpretation and review of laboratory results Normal [facility] Magnesium [Mass/Vol] 1.7 mg/dL 1.6 - 2 .6 mg/dL [facility] Magnesium [Mass/Vol] 1.7 mg/dL Normal 1.6-2.6 [facility] Comment on above: Performed By: #### C A, IPB, MGO, CHM7, HFP, OSMO #### [facility] (DEFAULT) [address] [place] [address] No Panel Informationon 10-12 [facility] CALCIUMon 10-11-2024 Calcium [Mass/Vol] 7.9 mg/dL Low 8.6 - 10. 5 mg/dL [facility] Calcium [Mass/Vol] 7.9 mg/dL Low 8.6-10.5 [facility] Comment on above: Performed By: #### C A, IPB, MGO, CHM7, HFP, OSMO #### [facility] (DEFAULT) [address] [place], [place] [address] CBC,PLATELETSon 10-11-2024 Erythrocyte distribution width (RBC) [Ratio] 13.8 % 10.9 - 14.3 % [facility] Hematocrit (Bld) [Volume fraction] 25.5 % Low 39.6 - 48.8 % [facility] Hemoglobin (Bld) [Mass/Vol] 8.3 g/dL Low 13.4 - 16.8 g/dL [facility] Interpretation and review of laboratory results Abnormal [facility] MCH (RBC) [Entitic mass] 28.9 pg 26.1 - 33.3 pg [facility] MCHC (RBC) [Mass/Vol] 32.5 g/dL 31.9 - 36.5 g/dL [facility] MCV (RBC) [Entitic vol] 88.9 fL 79.0 - 94.5 fL [facility] Platelet mean volume (Bld) [Entitic vol] 9.0 fL 8.7 - 12.3 fL [facility] Platelets (Bld) [#/Vol] 496 10*3/uL High 146 - 337 K/uL [facility] RBC (Bld) [#/Vol] 2.87 10*6/uL Low [facility] WBC (Bld) [#/Vol] 6.98 10*3/uL 3.73 - 10. 10 K/uL [facility] Hematocrit (Bld) [Volume fraction] 25.5 % Low 39.6-48.8 [facility] Comment on above: Performed By: #### C A, IPB, MGO, CHM7, HFP, OSMO #### [facility] (DEFAULT) [address] [place] [address] Hemoglobin (Bld) [Mass/Vol] 8.3 g/dL Low 13.4-16.8 [facility] Comment on above: Performed By: #### C A, IPB, MGO, CHM7, HFP, OSMO #### [facility] (DEFAULT) [address] [place] [address] MCV (RBC) [Entitic vol] 88.9 fL Normal 79.0-94.5 [facility] Comment on above: Performed By: #### C A, IPB, MGO, CHM7, HFP, OSMO #### [facility] (DEFAULT) [address] [place] [address] Mean Cell Hgb 28.9 pg Normal 26.1-33.3 [facility] Comment on above: Performed By: #### C A, IPB, MGO, CHM7, HFP, OSMO #### [facility] (DEFAULT) [address] [place] [address] Mean Cell Hgb Conc 32.5 g/dL Normal 31.9-36.5 [facility] Comment on above: Performed By: #### C A, IPB, MGO, CHM7, HFP, OSMO #### [facility] (DEFAULT) [address] [place] [address] Platelet mean volume (Bld) [Entitic vol] 9.0 fL Normal 8.7-12.3 [facility] Comment on above: Performed By: #### C A, IPB, MGO, CHM7, HFP, OSMO #### [facility] (DEFAULT) [address] [place] [address] Platelets (Bld) [#/Vol] 496 10*3/uL High 146-337 [facility] Comment on above: Performed By: #### C A, IPB, MGO, CHM7, HFP, OSMO #### [facility] (DEFAULT) [address] [place] [address] RBC (Bld) [#/Vol] 2.87 10*6/uL Low 4.38-5.83 [facility] Comment on above: Performed By: #### C A, IPB, MGO, CHM7, HFP, OSMO #### [facility] (DEFAULT) [address] [place] [address] RBC Distribution 13.8 % Normal 10.9-14.3 [facility] Comment on above: Performed By: #### C A, IPB, MGO, CHM7, HFP, OSMO #### [facility] (DEFAULT) [address] [place] [address] WBC (Bld) [#/Vol] 6.98 10*3/uL Normal 3.73-10.10 [facility] Comment on above: Performed By: #### C A, IPB, MGO, CHM7, HFP, OSMO #### [facility] (DEFAULT) [address] [place] [address] CHEM 7 (LYTES,BUN,CREA,GLUC) on 10-11-2024 Anion gap [Moles/Vol] 15 mmol/L 7 - 17 mmol/L [facility] Chloride [Moles/Vol] 96 mmol/L Low 98 - 10 8 mmol/L [facility] CO2 [Moles/Vol] 28 mmol/L 21 - 31 mmol/L [facility] Creatinine [Mass/Vol] 0.68 mg/dL Low 0.70 - 1.30 mg/dL [facility] eGFR, CKD[facility]EPI, [facility] Gl[facility] [Mass/Vol] 132 mg/dL 70 - 179 mg/dL [facility] Interpretation and review of laboratory results Abnormal [facility] Osmolality Calc [Osmolality] 285 [facility] Potassium [Moles/Vol] 3.7 mmol/L 3.5 - 5.0 mmol/L [facility] Sodium [Moles/Vol] 135 mmol/L 135 - 145 mmol/L [facility] Urea nitrogen [Mass/Vol] 12 mg/dL 7 - 25 mg/dL [facility] Urea nitrogen/Creatinine [Mass ratio] 18 mg/mg [facility] Anion gap [Moles/Vol] 15 mmol/L Normal 7-17 [facility] Comment on above: Performed By: #### C A, IPB, MGO, CHM7, HFP, OSMO #### [facility] (DEFAULT) [address] [place] [address] Chloride [Moles/Vol] 96 mmol/L Low 98-108 [facility] Comment on above: Performed By: #### C A, IPB, MGO, CHM7, HFP, OSMO #### [facility] (DEFAULT) [address] [place] [address] CO2 [Moles/Vol] 28 mmol/L Normal 21-31 [facility] Comment on above: Performed By: #### C A, IPB, MGO, CHM7, HFP, OSMO #### [facility] (DEFAULT) [address] [place] [address] Creatinine [Mass/Vol] 0.68 mg/dL Low 0.70-1.30 [facility] Comment on above: Performed By: #### C A, IPB, MGO, CHM7, HFP, OSMO #### [facility] (DEFAULT) [address] [place] [address]31 eGFR, CKD-EPI, Male > Normal >=60 [facility] Comment on above: Result Comment: Repo rted eGFR is based on the CKD-EPI 2020 equation using creatinine, age, and sex. Performed By: #### C A, IPB, MGO, CHM7, HFP, OSMO #### [facility] (DEFAULT) [address] [place] [address] Glucose [Mass/Vol] 132 mg/dL Normal Nonfastin -179 mg/dL; Fastin-99 [facility] Comment on above: Performed By: #### C A, IPB, MGO, CHM7, HFP, OSMO #### [facility] (DEFAULT) [address] [place] [address] Osmolality [Osmolality] 285 mosm/kg Normal 278-305 [facility] Comment on above: Performed By: #### C A, IPB, MGO, CHM7, HFP, OSMO #### [facility] (DEFAULT) [address] [place] [address] Potassium [Moles/Vol] 3.7 mmol/L Normal 3.5-5.0 [facility] Comment on above: Performed By: #### C A, IPB, MGO, CHM7, HFP, OSMO #### [facility] (DEFAULT) [address] [place] [address] Sodium [Moles/Vol] 135 mmol/L Normal 135-145 [facility] Comment on above: Performed By: #### C A, IPB, MGO, CHM7, HFP, OSMO #### [facility] (DEFAULT) [address] [place] [address] Urea nitrogen [Mass/Vol] 12 mg/dL Normal 7-25 [facility] Comment on above: Performed By: #### C A, IPB, MGO, CHM7, HFP, OSMO #### [facility] (DEFAULT) [address] [place] [address] Urea nitrogen/Creatinine [Mass ratio] 18 mg/mg Normal [facility] Comment on above: Performed By: #### C A, IPB, MGO, CHM7, HFP, OSMO #### [facility] (DEFAULT) [address] [place] [address] Anion gap [Moles/Vol] 14 mmol/L 7 - 17 mmol/L [facility] Chloride [Moles/Vol] 97 mmol/L Low 98 - 10 8 mmol/L [facility] CO2 [Moles/Vol] 28 mmol/L 21 - 31 mmol/L [facility] Creatinine [Mass/Vol] 0.60 mg/dL Low 0.70 - 1.30 mg/dL [facility] eGFR, CKD[facility]EPI, [facility] Glucose [Mass/Vol] 85 mg/dL 70 - 179 mg/dL [facility] Osmolality Calc [Osmolality] 282 [facility] Potassium [Moles/Vol] 3.0 mmol/L Low 3.5 - 5.0 mmol/L [facility] Sodium [Moles/Vol] 136 mmol/L 135 - 145 mmol/L [facility] Urea nitrogen [Mass/Vol] 12 mg/dL 7 - 25 mg/dL [facility] Urea nitrogen/Creatinine [Mass ratio] 20 mg/mg [facility] Anion gap [Moles/Vol] 14 mmol/L Normal 7-17 [facility] Comment on above: Performed By: #### C A, IPB, MGO, CHM7, HFP, OSMO #### [facility] (DEFAULT) [address] [place] [address] Chloride [Moles/Vol] 97 mmol/L Low 98-108 [facility] Comment on above: Performed By: #### C A, IPB, MGO, CHM7, HFP, OSMO #### [facility] (DEFAULT) [address] [place] [address] CO2 [Moles/Vol] 28 mmol/L Normal 21-31 [facility] Comment on above: Performed By: #### C A, IPB, MGO, CHM7, HFP, OSMO #### [facility] (DEFAULT) [address] [place] [address] Creatinine [Mass/Vol] 0.60 mg/dL Low 0.70-1.30 [facility] Comment on above: Performed By: #### C A, IPB, MGO, CHM7, HFP, OSMO #### [facility] (DEFAULT) [address] [place] [address] 99972 eGFR, CKD-EPI, Male > Normal >=60 [facility] Comment on above: Result Comment: Repo rted eGFR is based on the CKD-EPI 2020 equation using creatinine, age, and sex. Performed By: #### C A, IPB, MGO, CHM7, HFP, OSMO #### [facility] (DEFAULT) [address] [place] [address] 89531 Glucose [Mass/Vol] 85 mg/dL Normal Nonfastin -179 mg/dL; Fastin-99 [facility] Comment on above: Performed By: #### C A, IPB, MGO, CHM7, HFP, OSMO #### [facility] (DEFAULT) [address] [place] [address] 07667 Osmolality [Osmolality] 282 mosm/kg Normal 278-305 [facility] Comment on above: Performed By: #### C A, IPB, MGO, CHM7, HFP, OSMO #### [facility] (DEFAULT) [address] [place] [address] Potassium [Moles/Vol] 3.0 mmol/L Low 3.5-5.0 [facility] Comment on above: Performed By: #### C A, IPB, MGO, CHM7, HFP, OSMO #### [facility] (DEFAULT) [address] [place] [address]43 Sodium [Moles/Vol] 136 mmol/L Normal 135-145 [facility] Comment on above: Performed By: #### C A, IPB, MGO, CHM7, HFP, OSMO #### [facility] (DEFAULT) [address] [place] [address]10 Urea nitrogen [Mass/Vol] 12 mg/dL Normal 7-25 [facility] Comment on above: Performed By: #### C A, IPB, MGO, CHM7, HFP, OSMO #### [facility] (DEFAULT) [address] [place] [address]61 Urea nitrogen/Creatinine [Mass ratio] 20 mg/mg Normal [facility] Comment on above: Performed By: #### C A, IPB, MGO, CHM7, HFP, OSMO #### [facility] (DEFAULT) [address] [place] [address] 12834 MAGNESIUMon 10-11-2024 Interpretation and review of laboratory results Normal [facility] Magnesium [Mass/Vol] 1.8 mg/dL 1.6 - 2 .6 mg/dL [facility] Magnesium [Mass/Vol] 1.8 mg/dL Normal 1.6-2.6 [facility] Comment on above: Performed By: #### C A, IPB, MGO, CHM7, HFP, OSMO #### [facility] (DEFAULT) [address] [place] [address] 199[address] Interpretation and review of laboratory results Normal [facility] Magnesium [Mass/Vol] 1.6 mg/dL 1.6 - 2 .6 mg/dL [facility] Magnesium [Mass/Vol] 1.6 mg/dL Normal 1.6-2.6 [facility] Comment on above: Performed By: #### C A, IPB, MGO, CHM7, HFP, OSMO #### [facility] (DEFAULT) [address] [place] [address] No Panel Informationon 10-11 [facility] Interpretation and review of laboratory results Abnormal [facility] Portable XR Chest Viewson RADIOLOGY RADIOLOGY [facility] XR CHEST 1 VIEW PORTABLEon 0 10-10-2024 XR CHEST 1 VIEW PORTABLE EXAM: XR CHEST 1 VIEW PORTABLE, 10/09/2024 13:26 PM CLINICAL INDICATIONS: Interval exam post CT removal RELEVANT CLINICAL HISTORY: COMPARISON: XR CHEST 1 VIEW PORTABLE October 09, 2024 FINDINGS: Interval removal of the left chest tube. No change in the left hydropneumothorax. Persistent volume loss in the left lung. Essentially clear right lung Heart size partially obscured by the opacity on the left. No pulmonary edema Scoliosis and degenerative change of the thoracic spine. IMPRESSION: No change in the left hydropneumothorax following removal of the left chest tube. Normal [facility] *CHEST TUBE INSERTIONon 09-12 [facility] BACTERIAL CULTURE AND DIRECT SMEAR, LESION, TISSUE, DEVICEOrdered By: Irais Lerner on 10-09-2024 Bacteria identified Cx Nom (Unsp spec) NO GROWTH DAY 2 OF 2 [facility] Bacteria identified Cx Nom ( Unsp spec)Ordered By: Irais Lerner on 10-09-2024 Microscopic observation Other stain Nom (Unsp spec) Neutrophils, Heavy [facility] Microscopic observation Other stain Nom (Unsp spec) Red Blood Cells Present OS [facility] Microscopic observation Other stain Nom (Unsp spec) No organisms seen [facility] Bacteria identified Respirat ory culture Nom (Unsp spec)Ordered By: Desi Machado on 10-09-2024 Bacteria identified Cx Nom (Unsp spec) NO GROWTH DAY 2 OF 2 [facility] Microscopic observation Other stain Nom (Unsp spec) Cytocentrifuge preparation [facility] Microscopic observation Other stain Nom (Unsp spec) Neutrophils, None [facility] Microscopic observation Other stain Nom (Unsp spec) No organisms seen [facility] CALCIUMon 10-09-2024 Calcium [Mass/Vol] 7.7 mg/dL Low 8.6 - 10. 5 mg/dL [facility] Calcium [Mass/Vol] 7.7 mg/dL Low 8.6-10.5 [facility] Comment on above: Performed By: #### C A, IPB, MGO, CHM7, HFP, OSMO #### [facility] (DEFAULT) [address] [place] [address] CBC W/Diff, Automatedon 09-12 PATH REV Reviewed Normal [facility] Comment on above: Result Comment: SEE REPORT IN PATIENT'S EMR AMENDED REPORT 10/09/24 1001 PATH REV previously reported as: June Performed By: #### L 500.4050, L100.0100, L501.9910, L500.4100 #### [facility] [address] [place], [address] CBC,PLATELETSon 10-09-2024 Erythrocyte distribution width (RBC) [Ratio] 13.8 % 10.9 - 14.3 % [facility] Hematocrit (Bld) [Volume fraction] 25.0 % Low 39.6 - 48.8 % [facility] Hemoglobin (Bld) [Mass/Vol] 8.3 g/dL Low 13.4 - 16.8 g/dL [facility] [facility] Interpretation and review of laboratory results Abnormal [facility] MCH (RBC) [Entitic mass] 29.2 pg 26.1 - 33.3 pg [facility] MCHC (RBC) [Mass/Vol] 33.2 g/dL 31.9 - 36.5 g/dL [facility] MCV (RBC) [Entitic vol] 88.0 fL 79.0 - 94.5 fL [facility] Platelet mean volume (Bld) [Entitic vol] 8.6 fL Low 8.7 - 12.3 fL [facility] Platelets (Bld) [#/Vol] 539 10*3/uL High 146 - 337 K/uL [facility] RBC (Bld) [#/Vol] 2.84 10*6/uL Low [facility] WBC (Bld) [#/Vol] 8.53 10*3/uL 3.73 - 10. 10 K/uL [facility] Hematocrit (Bld) [Volume fraction] 25.0 % Low 39.6-48.8 [facility] Comment on above: Performed By: #### C A, IPB, MGO, CHM7, HFP, OSMO #### [facility] (DEFAULT) [address] [place] [address] 50741 Hemoglobin (Bld) [Mass/Vol] 8.3 g/dL Low 13.4-16.8 [facility] Comment on above: Performed By: #### C A, IPB, MGO, CHM7, HFP, OSMO #### [facility] (DEFAULT) [address] [place] [address] 09070 MCV (RBC) [Entitic vol] 88.0 fL Normal 79.0-94.5 [facility] Comment on above: Performed By: #### C A, IPB, MGO, CHM7, HFP, OSMO #### [facility] (DEFAULT) [address] [place] [address] 48092 Mean Cell Hgb 29.2 pg Normal 26.1-33.3 [facility] Comment on above: Performed By: #### C A, IPB, MGO, CHM7, HFP, OSMO #### [facility] (DEFAULT) [address] [place] [address] 31034 Mean Cell Hgb Conc 33.2 g/dL Normal 31.9-36.5 [facility] Comment on above: Performed By: #### C A, IPB, MGO, CHM7, HFP, OSMO #### [facility] (DEFAULT) [address] [place] [address] 34641 Platelet mean volume (Bld) [Entitic vol] 8.6 fL Low 8.7-12.3 [facility] Comment on above: Performed By: #### C A, IPB, MGO, CHM7, HFP, OSMO #### [facility] (DEFAULT) [address] [place] [address] 16915 Platelets (Bld) [#/Vol] 539 10*3/uL High 146-337 [facility] Comment on above: Performed By: #### C A, IPB, MGO, CHM7, HFP, OSMO #### [facility] (DEFAULT) [address] [place] [address] 00605 RBC (Bld) [#/Vol] 2.84 10*6/uL Low 4.38-5.83 [facility] Comment on above: Performed By: #### C A, IPB, MGO, CHM7, HFP, OSMO #### [facility] (DEFAULT) [address] [place] [address] 45156 RBC Distribution 13.8 % Normal 10.9-14.3 [facility] Comment on above: Performed By: #### C A, IPB, MGO, CHM7, HFP, OSMO #### [facility] (DEFAULT) [address] [place] [address] 54686 WBC (Bld) [#/Vol] 8.53 10*3/uL Normal 3.73-10.10 [facility] Comment on above: Performed By: #### C A, IPB, MGO, CHM7, HFP, OSMO #### [facility] (DEFAULT) [address] [place] [address] 82095 CHEM 7 (LYTES,BUN,CREA,GLUC) on 10-09-2024 Anion gap [Moles/Vol] 10 mmol/L 7 - 17 mmol/L [facility] Chloride [Moles/Vol] 99 mmol/L 98 - 10 8 mmol/L [facility] CO2 [Moles/Vol] 28 mmol/L 21 - 31 mmol/L [facility] Creatinine [Mass/Vol] 0.70 mg/dL 0.70 - 1.30 mg/dL [facility] eGFR, CKD-EPI, Male - PINF [facility] Glucose [Mass/Vol] 110 mg/dL 70 - 179 mg/dL [facility] Osmolality Calc [Osmolality] 280 [facility] Potassium [Moles/Vol] 3.8 mmol/L 3.5 - 5.0 mmol/L [facility] Sodium [Moles/Vol] 133 mmol/L Low 135 - 145 mmol/L [facility] Urea nitrogen [Mass/Vol] 14 mg/dL 7 - 25 mg/dL [facility] Urea nitrogen/Creatinine [Mass ratio] 20 mg/mg [facility] Anion gap [Moles/Vol] 10 mmol/L Normal 7-17 [facility] Comment on above: Performed By: #### Diana GREGG, XM #### [facility] (DEFAULT) [address] [place] [address] 90220 Chloride [Moles/Vol] 99 mmol/L Normal 98-108 [facility] Comment on above: Performed By: #### Diana GREGG, XM #### [facility] (DEFAULT) [address] [place] [address] 89646 CO2 [Moles/Vol] 28 mmol/L Normal 21-31 [facility] Comment on above: Performed By: ###Malcolm GREGG, XM #### [facility] (DEFAULT) [address] [place] [address] 67465 Creatinine [Mass/Vol] 0.70 mg/dL Normal 0.70-1.30 [facility] Comment on above: Performed By: #### Diana GREGG, XM #### [facility] (DEFAULT) [address] [place] [address] 80721 eGFR, CKD-EPI, Male > Normal >=60 [facility] Comment on above: Result Comment: Repo rted eGFR is based on the CKD-EPI 2020 equation using creatinine, age, and sex. Performed By: #### Diana GREGG, XM #### [facility] (DEFAULT) [address] [place] [address] 08608 Glucose [Mass/Vol] 110 mg/dL Normal Nonfastin -179 mg/dL; Fastin-99 [facility] Comment on above: Performed By: #### Diana GREGG, XM #### [facility] (DEFAULT) [address] [place] [address] 03281 Osmolality [Osmolality] 280 mosm/kg Normal 278-305 [facility] Comment on above: Performed By: #### Diana GREGG, XM #### [facility] (DEFAULT) [address] [place] [address] 80911 Potassium [Moles/Vol] 3.8 mmol/L Normal 3.5-5.0 [facility] Comment on above: Performed By: #### Diana GREGG, XM #### [facility] (DEFAULT) [address] [place] [address] 75173 Sodium [Moles/Vol] 133 mmol/L Low 135-145 [facility] Comment on above: Performed By: #### Diana GREGG, XM #### [facility] (DEFAULT) [address] [place] [address] 24283 Urea nitrogen [Mass/Vol] 14 mg/dL Normal 7-25 [facility] Comment on above: Performed By: #### Diana GREGG, XM #### [facility] (DEFAULT) [address] [place] [address] 45349 Urea nitrogen/Creatinine [Mass ratio] 20 mg/mg Normal [facility] Comment on above: Performed By: #### Diana GREGG, XM #### [facility] (DEFAULT) [address] [place] [address] 43404 MAGNESIUMon 10-09-2024 Interpretation and review of laboratory results Normal [facility] Magnesium [Mass/Vol] 1.8 mg/dL 1.6 - 2 .6 mg/dL [facility] Magnesium [Mass/Vol] 1.8 mg/dL Normal 1.6-2.6 [facility] Comment on above: Performed By: #### C A, IPB, MGO, CHM7, HFP, OSMO #### [facility] (DEFAULT) [address] [place] [address] No Panel Informationon 10-09 Interpretation and review of laboratory results Abnormal [facility] Portable XR Chest Viewson Radiology Study observation (narrative) [facility] RADIOLOGY RADIOLOGY [facility] Radiology Study observation (narrative) [facility] XR CHEST 1 VIEW PORTABLEon 0 10-09-2024 XR CHEST 1 VIEW PORTABLE EXAM: XR CHEST 1 VIEW PORTABLE, 10/09/2024 06:16 AM COMPARISON: XR CHEST 1 VIEW PORTABLE October 08, 2024 CLINICAL INDICATIONS: r/o ptx RELEVANT CLINICAL HISTORY: FINDINGS: (Adequate technique) Implanted Devices: Stable position of left apical chest tube. Thorax: Slight worsening of left-sided hydropneumothorax with increased small pneumothorax component overlying the left apex. Redemonstration of thin-walled cyst in the right upper lobe. Stable rightward shift of the trachea and cardiomediastinal silhouette. Degenerative changes in bilateral shoulder joints. IMPRESSION: Slight increase of a left hydropneumothorax with left chest tube in place. I personally viewed and interpreted these images and I have reviewed and approved this report. Normal [facility] CALCIUMon 10-08-2024 Calcium [Mass/Vol] 8.0 mg/dL Low 8.6 - 10. 5 mg/dL [facility] Calcium [Mass/Vol] 8.0 mg/dL Low 8.6-10.5 [facility] Comment on above: Performed By: #### C A, IPB, MGO, CHM7, HFP, OSMO #### [facility] (DEFAULT) [address] [place], [place] [phone] CBC,PLATELETSon 10-08-2024 Erythrocyte distribution width (RBC) [Ratio] 14.0 % 10.9 - 14.3 % [facility] Hematocrit (Bld) [Volume fraction] 27.0 % Low 39.6 - 48.8 % [facility] Hemoglobin (Bld) [Mass/Vol] 8.7 g/dL Low 13.4 - 16.8 g/dL [facility] Interpretation and review of laboratory results Abnormal [facility] MCH (RBC) [Entitic mass] 29.1 pg 26.1 - 33.3 pg [facility] MCHC (RBC) [Mass/Vol] 32.2 g/dL 31.9 - 36.5 g/dL [facility] MCV (RBC) [Entitic vol] 90.3 fL 79.0 - 94.5 fL [facility] Platelet mean volume (Bld) [Entitic vol] 8.7 fL 8.7 - 12.3 fL [facility] Platelets (Bld) [#/Vol] 619 10*3/uL High 146 - 337 K/uL [facility] RBC (Bld) [#/Vol] 2.99 10*6/uL Low [facility] WBC (Bld) [#/Vol] 10.17 10*3/uL High 3.73 - 10 .10 K/uL [facility] Hematocrit (Bld) [Volume fraction] 27.0 % Low 39.6-48.8 [facility] Comment on above: Performed By: #### C A, IPB, MGO, CHM7, HFP, OSMO #### [facility] (DEFAULT) [address] [address] Hemoglobin (Bld) [Mass/Vol] 8.7 g/dL Low 13.4-16.8 [facility] Comment on above: Performed By: #### C A, IPB, MGO, CHM7, HFP, OSMO #### [facility] (DEFAULT) [address] [address] MCV (RBC) [Entitic vol] 90.3 fL Normal 79.0-94.5 [facility] Comment on above: Performed By: #### C A, IPB, MGO, CHM7, HFP, OSMO #### [facility] (DEFAULT) [address] [place] [address] 24063 Mean Cell Hgb 29.1 pg Normal 26.1-33.3 [facility] Comment on above: Performed By: #### C A, IPB, MGO, CHM7, HFP, OSMO #### [facility] (DEFAULT) [address] [place] [address] 10980 Mean Cell Hgb Conc 32.2 g/dL Normal 31.9-36.5 [facility] Comment on above: Performed By: #### C A, IPB, MGO, CHM7, HFP, OSMO #### [facility] (DEFAULT) [address] [place] [address] 49609 Platelet mean volume (Bld) [Entitic vol] 8.7 fL Normal 8.7-12.3 [facility] Comment on above: Performed By: #### C A, IPB, MGO, CHM7, HFP, OSMO #### [facility] (DEFAULT) [address] [place] [address] 89069 Platelets (Bld) [#/Vol] 619 10*3/uL High 146-337 [facility] Comment on above: Performed By: #### C A, IPB, MGO, CHM7, HFP, OSMO #### [facility] (DEFAULT) [address] [place] [address] 79040 RBC (Bld) [#/Vol] 2.99 10*6/uL Low 4.38-5.83 [facility] Comment on above: Performed By: #### C A, IPB, MGO, CHM7, HFP, OSMO #### [facility] (DEFAULT) [address] [place] [address] 08374 RBC Distribution 14.0 % Normal 10.9-14.3 [facility] Comment on above: Performed By: #### C A, IPB, MGO, CHM7, HFP, OSMO #### [facility] (DEFAULT) [address] [place] [address] 25562 WBC (Bld) [#/Vol] 10.17 10*3/uL High 3.73-10.10 [facility] Comment on above: Performed By: #### C A, IPB, MGO, CHM7, HFP, OSMO #### [facility] (DEFAULT) [address] [place] [address] CHEM 7 (LYTES,BUN,CREA,GLUC) on 10-08-2024 Anion gap [Moles/Vol] 13 mmol/L 7 - 17 mmol/L [facility] Chloride [Moles/Vol] 97 mmol/L Low 98 - 10 8 mmol/L [facility] CO2 [Moles/Vol] 25 mmol/L 21 - 31 mmol/L [facility] Creatinine [Mass/Vol] 0.61 mg/dL Low 0.70 - 1.30 mg/dL [facility] eGFR, CKD-EPI, Male - PINF [facility] Glucose [Mass/Vol] 102 mg/dL 70 - 179 mg/dL [facility] Osmolality Calc [Osmolality] 277 Low [facility] Potassium [Moles/Vol] 4.3 mmol/L 3.5 - 5.0 mmol/L [facility] Sodium [Moles/Vol] 131 mmol/L Low 135 - 145 mmol/L [facility] Urea nitrogen [Mass/Vol] 13 mg/dL 7 - 25 mg/dL [facility] Urea nitrogen/Creatinine [Mass ratio] 21 mg/mg [facility] Anion gap [Moles/Vol] 13 mmol/L Normal 7-17 [facility] Comment on above: Performed By: #### C A, IPB, MGO, CHM7, HFP, OSMO #### [facility] (DEFAULT) [address] [place] [address] Chloride [Moles/Vol] 97 mmol/L Low 98-108 [facility] Comment on above: Performed By: #### C A, IPB, MGO, CHM7, HFP, OSMO #### [facility] (DEFAULT) [address] [place] [address] 04160 CO2 [Moles/Vol] 25 mmol/L Normal 21-31 [facility] Comment on above: Performed By: #### C A, IPB, MGO, CHM7, HFP, OSMO #### [facility] (DEFAULT) [address] [place] [address] 99928 Creatinine [Mass/Vol] 0.61 mg/dL Low 0.70-1.30 [facility] Comment on above: Performed By: #### C A, IPB, MGO, CHM7, HFP, OSMO #### [facility] (DEFAULT) [address] [place] [address] 99932 eGFR, CKD-EPI, Male > Normal >=60 [facility] Comment on above: Result Comment: Repo rted eGFR is based on the CKD-EPI 2020 equation using creatinine, age, and sex. Performed By: #### C A, IPB, MGO, CHM7, HFP, OSMO #### [facility] (DEFAULT) [address] [place] [address] 30367 Glucose [Mass/Vol] 102 mg/dL Normal Nonfastin -179 mg/dL; Fastin-99 [facility] Comment on above: Performed By: #### C A, IPB, MGO, CHM7, HFP, OSMO #### [facility] (DEFAULT) [address] [place] [address] 30939 Osmolality [Osmolality] 277 mosm/kg Low 278-305 [facility] Comment on above: Performed By: #### C A, IPB, MGO, CHM7, HFP, OSMO #### [facility] (DEFAULT) [address] [place] [address] 31294 Potassium [Moles/Vol] 4.3 mmol/L Normal 3.5-5.0 [facility] Comment on above: Performed By: #### C A, IPB, MGO, CHM7, HFP, OSMO #### [facility] (DEFAULT) [address] [place] [address] 72369 Sodium [Moles/Vol] 131 mmol/L Low 135-145 [facility] Comment on above: Performed By: #### C A, IPB, MGO, CHM7, HFP, OSMO #### [facility] (DEFAULT) [address] [place] [address] 21262 Urea nitrogen [Mass/Vol] 13 mg/dL Normal 7-25 [facility] Comment on above: Performed By: #### C A, IPB, MGO, CHM7, HFP, OSMO #### [facility] (DEFAULT) [address] [place] [address] 01562 Urea nitrogen/Creatinine [Mass ratio] 21 mg/mg Normal [facility] Comment on above: Performed By: #### C A, IPB, MGO, CHM7, HFP, OSMO #### [facility] (DEFAULT) [address] [place] [address] 93385 MAGNESIUMon 10-08-2024 Interpretation and review of laboratory results Normal [facility] Magnesium [Mass/Vol] 2.0 mg/dL 1.6 - 2 .6 mg/dL [facility] Magnesium [Mass/Vol] 2.0 mg/dL Normal 1.6-2.6 [facility] Comment on above: Performed By: #### C A, IPB, MGO, CHM7, HFP, OSMO #### [facility] (DEFAULT) [address] [place] [address] 12432 No Panel Informationon 10-08 Interpretation and review of laboratory results Abnormal [facility] Portable XR Chest Viewson RADIOLOGY RADIOLOGY [facility] Radiology Study observation (narrative) [facility] RADIOLOGY RADIOLOGY [facility] Radiology Study observation (narrative) [facility] XR CHEST 1 VIEW PORTABLEon 0 10-08-2024 XR CHEST 1 VIEW PORTABLE EXAM: XR CHEST 1 VIEW PORTABLE, 10/08/2024 15:01 PM CLINICAL INDICATIONS: chest tube removal RELEVANT CLINICAL HISTORY: COMPARISON: XR CHEST 1 VIEW PORTABLE October 08, 2024 FINDINGS: Interval removal of one of the 2 left chest tubes. Small loculations of air in the left pleural space, unchanged. Unchanged small left effusion. Left basilar volume loss, unchanged. Clear right lung Normal heart size. No pulmonary edema Scoliosis and degenerative change of the thoracic spine. IMPRESSION: No change in the small left pleural loculations of air within the effusion following removal of one of the 2 left chest tubes. Normal [facility] XR CHEST 1 VIEW PORTABLE EXAM: XR CHEST 1 VIEW PORTABLE, 10/08/2024 05:45 AM COMPARISON: XR CHEST 1 VIEW PORTABLE October 07, 2024 CLINICAL INDICATIONS: r/o ptx RELEVANT CLINICAL HISTORY: FINDINGS: (Adequate technique) Implanted Devices: 2 left apical chest tubes stable. Thorax: Stable left-sided small loculated hydropneumothorax. Right side remains clear. Cardiomediastinal silhouette and osseous structures unchanged IMPRESSION: Stable small left-sided loculated hydropneumothorax I personally viewed and interpreted these images and I have reviewed and approved this report. Normal [facility] Body Fluid Culton 10-07-2024 BFC UNKNOWN UNKNOWN with flow cytometry please Sensitivity performed at [facility]. Body Fluid Cult RESULTS CALLED TO LAURENCE Kimbrough 09/29/24 0947 Ying Garcia. REPORT READ BACK BY . Body Fluid Cult Copy of report sent to Infection Control Printer [id number] 09/29/24 0947 BLAS. Streptococcus intermedius Amount Growth 3+ Streptococcus intermedius: REACTION Cefepime Islt MARK Cefotaxime Islt MARK S cefTRIAXone Islt MARK S Chloramphen Islt MARK S Clindamycin Islt MARK S Erythromycin Islt MARK R levoFLOXacin Islt MARK S Vancomycin Islt MARK S Penicillin Islt MARK S Normal [facility] Comment on above: Performed By: #### L 500.4050, L100.0100, L501.9910, L500.4100 #### [facility] [address] [place], [place], [address] CALCIUMon 10-07-2024 Calcium [Mass/Vol] 7.5 mg/dL Low 8.6 - 10. 5 mg/dL [facility] Interpretation and review of laboratory results Abnormal [facility] Calcium [Mass/Vol] 7.5 mg/dL Low 8.6-10.5 [facility] Comment on above: Performed By: #### C A, IPB, MGO, CHM7, HFP, OSMO #### [facility] (DEFAULT) [address] [place] [address] CBC AND ELECTRONIC DIFFon Basophils (Bld) [#/Vol] K/uL 0.00 - 0.09 K/uL [facility] Basophils/100 WBC (Bld) 0.2 % [facility] Differential cell count method Nom (Bld) Electronic Differential [facility] Eosinophils (Bld) [#/Vol] K/uL 0.00 - 0.48 K/uL [facility] Eosinophils/100 WBC (Bld) 0.0 % [facility] Erythrocyte distribution width (RBC) [Ratio] 13.7 % 10.9 - 14.3 % [facility] Hematocrit (Bld) [Volume fraction] 26.3 % Low 39.6 - 48.8 % [facility] Hemoglobin (Bld) [Mass/Vol] 8.6 g/dL Low 13.4 - 16.8 g/dL [facility] Immature granulocytes (Bld) [#/Vol] 0.12 10*3/uL High NINF - 0.07 K/uL [facility] Immature granulocytes/100 WBC (Bld) 1.0 % [facility] Interpretation and review of laboratory results Abnormal [facility] Lymphocytes (Bld) [#/Vol] 0.49 10*3/uL Low 0.83 - 3.57 K/uL [facility] Lymphocytes/100 WBC (Bld) 4.1 % [facility] MCH (RBC) [Entitic mass] 29.2 pg 26.1 - 33.3 pg [facility] MCHC (RBC) [Mass/Vol] 32.7 g/dL 31.9 - 36.5 g/dL [facility] MCV (RBC) [Entitic vol] 89.2 fL 79.0 - 94.5 fL [facility] Monocytes (Bld) [#/Vol] 0.40 10*3/uL 0.24 - 0.93 K/uL [facility] Monocytes/100 WBC (Bld) 3.3 % [facility] Neutrophils (Bld) [#/Vol] 11.00 10*3/uL High 1.57 - 6.19 K/uL [facility] Nucleated RBC/100 WBC (Bld) [Ratio] 0.0 % NINF [facility] Platelet mean volume (Bld) [Entitic vol] 8.5 fL Low 8.7 - 12.3 fL [facility] Platelets (Bld) [#/Vol] 551 10*3/uL High 146 - 337 K/uL [facility] RBC (Bld) [#/Vol] 2.95 10*6/uL Low [facility] Segmented neutrophils/100 WBC (Bld) 91.4 % [facility] WBC (Bld) [#/Vol] 12.03 10*3/uL High 3.73 - 10 .10 K/uL [facility] Abs Baso Auto < Normal 0.00-0.09 [facility] Comment on above: Performed By: #### C A, IPB, MGO, CHM7, HFP, OSMO #### [facility] (DEFAULT) [address] [place] [address] Abs Eos Auto < Normal 0.00-0.48 [facility] Comment on above: Performed By: #### C A, IPB, MGO, CHM7, HFP, OSMO #### [facility] (DEFAULT) [address] [place] [address] 73262 Basophils/100 WBC (Bld) 0.2 % Normal [facility] Comment on above: Performed By: #### C A, IPB, MGO, CHM7, HFP, OSMO #### [facility] (DEFAULT) [address] [place] [address] 85118 DIFF STATUS Electronic Differential Normal [facility] Comment on above: Performed By: #### C A, IPB, MGO, CHM7, HFP, OSMO #### [facility] (DEFAULT) [address] [place] [address] 57446 Eosinophils/100 WBC (Bld) 0.0 % Normal [facility] Comment on above: Performed By: #### C A, IPB, MGO, CHM7, HFP, OSMO #### [facility] (DEFAULT) [address] [place] [address] 78465 Hematocrit (Bld) [Volume fraction] 26.3 % Low 39.6-48.8 [facility] Comment on above: Performed By: #### C A, IPB, MGO, CHM7, HFP, OSMO #### [facility] (DEFAULT) [address] [place] [address] 79745 Hemoglobin (Bld) [Mass/Vol] 8.6 g/dL Low 13.4-16.8 [facility] Comment on above: Performed By: #### C A, IPB, MGO, CHM7, HFP, OSMO #### [facility] (DEFAULT) [address] [place] [address] 44386 Immature Grans % 1.0 % Normal [facility] Comment on above: Performed By: #### C A, IPB, MGO, CHM7, HFP, OSMO #### [facility] (DEFAULT) [address] [place] [address] 30676 Immature Grans Absolute 0.12 K/uL High <=0.07 [facility] Comment on above: Performed By: #### C A, IPB, MGO, CHM7, HFP, OSMO #### [facility] (DEFAULT) [address] [place] [address] 66915 Lymphocytes (Bld) [#/Vol] 0.49 10*3/uL Low 0.83-3.57 [facility] Comment on above: Performed By: #### C A, IPB, MGO, CHM7, HFP, OSMO #### [facility] (DEFAULT) [address] [place] [address] 45854 Lymphocytes/100 WBC (Bld) 4.1 % Normal [facility] Comment on above: Performed By: #### C A, IPB, MGO, CHM7, HFP, OSMO #### [facility] (DEFAULT) [address] [place] [address] 19494 MCV (RBC) [Entitic vol] 89.2 fL Normal 79.0-94.5 [facility] Comment on above: Performed By: #### C A, IPB, MGO, CHM7, HFP, OSMO #### [facility] (DEFAULT) [address] [place] [address] 53272 Mean Cell Hgb 29.2 pg Normal 26.1-33.3 [facility] Comment on above: Performed By: #### C A, IPB, MGO, CHM7, HFP, OSMO #### [facility] (DEFAULT) [address] [place] [address] 41323 Mean Cell Hgb Conc 32.7 g/dL Normal 31.9-36.5 [facility] Comment on above: Performed By: #### C A, IPB, MGO, CHM7, HFP, OSMO #### [facility] (DEFAULT) [address] [place] [address] 93486 Monocytes (Bld) [#/Vol] 0.40 10*3/uL Normal 0.24-0.93 [facility] Comment on above: Performed By: #### C A, IPB, MGO, CHM7, HFP, OSMO #### [facility] (DEFAULT) [address] [place] [address] 33107 Monocytes/100 WBC (Bld) 3.3 % Normal [facility] Comment on above: Performed By: #### C A, IPB, MGO, CHM7, HFP, OSMO #### [facility] (DEFAULT) [address] [place] [address] 39907 Nucleated RBC 0.0 /100 WBC Normal <=0.2 [facility] Comment on above: Performed By: #### C A, IPB, MGO, CHM7, HFP, OSMO #### [facility] (DEFAULT) [address] [place] [address] 63580 Platelet mean volume (Bld) [Entitic vol] 8.5 fL Low 8.7-12.3 [facility] Comment on above: Performed By: #### C A, IPB, MGO, CHM7, HFP, OSMO #### [facility] (DEFAULT) [address] [place] [address] 41617 Platelets (Bld) [#/Vol] 551 10*3/uL High 146-337 [facility] Comment on above: Performed By: #### C A, IPB, MGO, CHM7, HFP, OSMO #### [facility] (DEFAULT) [address] [place] [address] 76895 RBC (Bld) [#/Vol] 2.95 10*6/uL Low 4.38-5.83 [facility] Comment on above: Performed By: #### C A, IPB, MGO, CHM7, HFP, OSMO #### [facility] (DEFAULT) [address] [place] [address] 00745 RBC Distribution 13.7 % Normal 10.9-14.3 [facility] Comment on above: Performed By: #### C A, IPB, MGO, CHM7, HFP, OSMO #### [facility] (DEFAULT) [address] [place] [address] 36817 Segs + Bands Auto 91.4 % Normal [facility] Comment on above: Performed By: #### C A, IPB, MGO, CHM7, HFP, OSMO #### [facility] (DEFAULT) [address] [place] [address] 47249 Segs + Bands,Absolute Auto 11.00 K/uL High 1.57-6.19 [facility] Comment on above: Performed By: #### C A, IPB, MGO, CHM7, HFP, OSMO #### [facility] (DEFAULT) [address] [place] [address] 81769 WBC (Bld) [#/Vol] 12.03 10*3/uL High 3.73-10.10 [facility] Comment on above: Performed By: #### C A, IPB, MGO, CHM7, HFP, OSMO #### [facility] (DEFAULT) [address] [place] [address] 89111 CBC,PLATELETSon 10-07-2024 Erythrocyte distribution width (RBC) [Ratio] 13.6 % 10.9 - 14.3 % [facility] Hematocrit (Bld) [Volume fraction] 26.1 % Low 39.6 - 48.8 % [facility] Hemoglobin (Bld) [Mass/Vol] 8.5 g/dL Low 13.4 - 16.8 g/dL [facility] Interpretation and review of laboratory results Abnormal [facility] MCH (RBC) [Entitic mass] 29.0 pg 26.1 - 33.3 pg [facility] MCHC (RBC) [Mass/Vol] 32.6 g/dL 31.9 - 36.5 g/dL [facility] MCV (RBC) [Entitic vol] 89.1 fL 79.0 - 94.5 fL [facility] Platelet mean volume (Bld) [Entitic vol] 8.6 fL Low 8.7 - 12.3 fL [facility] Platelets (Bld) [#/Vol] 583 10*3/uL High 146 - 337 K/uL [facility] RBC (Bld) [#/Vol] 2.93 10*6/uL Low [facility] WBC (Bld) [#/Vol] 11.96 10*3/uL High 3.73 - 10 .10 K/uL [facility] Hematocrit (Bld) [Volume fraction] 26.1 % Low 39.6-48.8 [facility] Comment on above: Performed By: #### H EMOGC #### [facility] (DEFAULT) [address] [address] Hemoglobin (Bld) [Mass/Vol] 8.5 g/dL Low 13.4-16.8 [facility] Comment on above: Performed By: #### H EMO #### [facility] (DEFAULT) [address] [address] MCV (RBC) [Entitic vol] 89.1 fL Normal 79.0-94.5 [facility] Comment on above: Performed By: #### H EMO #### [facility] (DEFAULT) [address] 64591 Mean Cell Hgb 29.0 pg Normal 26.1-33.3 [facility] Comment on above: Performed By: #### H EMOGC #### [facility] (DEFAULT) [address] 79023 Mean Cell Hgb Conc 32.6 g/dL Normal 31.9-36.5 [facility] Comment on above: Performed By: #### H EMOGC #### [facility] (DEFAULT) [address] [address]268 Platelet mean volume (Bld) [Entitic vol] 8.6 fL Low 8.7-12.3 [facility] Comment on above: Performed By: #### H EMOGC #### [facility] (DEFAULT) [address] [address]91 Platelets (Bld) [#/Vol] 583 10*3/uL High 146-337 [facility] Comment on above: Performed By: #### [facility] #### [facility] (DEFAULT) [address] [place] [address] RBC (Bld) [#/Vol] 2.93 10*6/uL Low 4.38-5.83 [facility] Comment on above: Performed By: #### H EMO #### [facility] (DEFAULT) [address] [place] [address] RBC Distribution 13.6 % Normal 10.9-14.3 [facility] Comment on above: Performed By: #### H [facility] #### [facility] (DEFAULT) [address] [place] [address] 13963 WBC (Bld) [#/Vol] 11.96 10*3/uL High 3.73-10.10 [facility] Comment on above: Performed By: #### H [facility] #### [facility] (DEFAULT) [address] [place] [address] 62478 CHEM 7 (LYTES,BUN,CREA,GLUC) on 10-07-2024 Anion gap [Moles/Vol] 12 mmol/L 7 - 17 mmol/L [facility] Chloride [Moles/Vol] 99 mmol/L 98 - 10 8 mmol/L [facility] CO2 [Moles/Vol] 24 mmol/L 21 - 31 mmol/L [facility] Creatinine [Mass/Vol] 0.49 mg/dL Low 0.70 - 1.30 mg/dL [facility] eGFR, CKD-EPI, Male - PINF [facility] Glucose [Mass/Vol] 125 mg/dL 70 - 179 mg/dL [facility] Interpretation and review of laboratory results Abnormal [facility] Osmolality Calc [Osmolality] 277 Low [facility] Potassium [Moles/Vol] 4.1 mmol/L 3.5 - 5.0 mmol/L [facility] Sodium [Moles/Vol] 131 mmol/L Low 135 - 145 mmol/L [facility] Urea nitrogen [Mass/Vol] 11 mg/dL 7 - 25 mg/dL [facility] Urea nitrogen/Creatinine [Mass ratio] 22 mg/mg [facility] Anion gap [Moles/Vol] 12 mmol/L Normal 7-17 [facility] Comment on above: Performed By: #### H EMOGC #### [facility] (DEFAULT) [address] [place] [address] 88561 Chloride [Moles/Vol] 99 mmol/L Normal 98-108 [facility] Comment on above: Performed By: #### H EMOGC #### [facility] (DEFAULT) [address] [place] [address] 13941 CO2 [Moles/Vol] 24 mmol/L Normal 21-31 [facility] Comment on above: Performed By: #### H EMOGC #### [facility] (DEFAULT) [address] [place] [address] 55906 Creatinine [Mass/Vol] 0.49 mg/dL Low 0.70-1.30 [facility] Comment on above: Performed By: #### H EMOGC #### [facility] (DEFAULT) [address] [place] [address] 27850 eGFR, CKD-EPI, Male > Normal >=60 [facility] Comment on above: Result Comment: Repo rted eGFR is based on the CKD-EPI 2020 equation using creatinine, age, and sex. Performed By: #### H EMOGC #### [facility] (DEFAULT) [address] [place] [address] 17315 Glucose [Mass/Vol] 125 mg/dL Normal Nonfastin -179 mg/dL; Fastin-99 [facility] Comment on above: Performed By: #### H EMOGC #### [facility] (DEFAULT) [address] [place] [address] 69965 Osmolality [Osmolality] 277 mosm/kg Low 278-305 [facility] Comment on above: Performed By: #### H EMOGC #### [facility] (DEFAULT) [address] [place] [address] 04006 Potassium [Moles/Vol] 4.1 mmol/L Normal 3.5-5.0 [facility] Comment on above: Performed By: #### H EMOGC #### [facility] (DEFAULT) [address] [place] [address] 70349 Sodium [Moles/Vol] 131 mmol/L Low 135-145 [facility] Comment on above: Performed By: #### H EMOGC #### [facility] (DEFAULT) [address] [place] [address] 68116 Urea nitrogen [Mass/Vol] 11 mg/dL Normal 7-25 [facility] Comment on above: Performed By: #### H EMOGC #### [facility] (DEFAULT) [address] [place] [address] 90740 Urea nitrogen/Creatinine [Mass ratio] 22 mg/mg Normal [facility] Comment on above: Performed By: #### H EMOGC #### [facility] (DEFAULT) [address] [place] [address] 33385 Chronic hepatitis differenti ation between hepatitis B and C virus panelOrdered By: Razia Reece on 10-07-2024 HBV core IgG+IgM Ql (S) Negative Negative [facility] HBV surface Ab IA Ql (S) Negative Negative [facility] HBV surface Ag Ql (S) Negative Negative [facility] HCV Ab Ql (S) Negative Negative [facility] HEPATITIS BATTERY, CHRONICon 10-07-2024 Hep B Core Ab,Total (IgG+IgM) Negative Normal Negative [facility] Comment on above: Performed By: #### H EMOGC #### [facility] (DEFAULT) [address] [place] [address] 67792 Hep B Surface Ab Negative Normal Negative [facility] Comment on above: Performed By: #### H EMOGC #### [facility] (DEFAULT) [address] [place] [address] 71396 Hepatitis B Surface Ag Negative Normal Negative [facility] Comment on above: Performed By: #### H EMOGC #### [facility] (DEFAULT) [address] [place] [address] Hepatitis C Antibody Negative Normal Negative [facility] Comment on above: Performed By: #### H EMO #### [facility] (DEFAULT) [address] [place] [address] 93658 HIV 1 AND 2 ANTIBODIES/P24 A NTIGENon 10-07-2024 HIV 1+2 Ab+HIV1 p24 Ag IA Ql Non-Reactive Non Reactive [facility] HIV-1/HIV-2 Ab With p24 Antigen Non-Reactive Normal Non Reactive [facility] Comment on above: Performed By: #### C A, IPB, MGO, CHM7, HFP, OSMO #### [facility] (DEFAULT) [address] [place] [address] 74098 MAGNESIUMon 10-07-2024 Magnesium [Mass/Vol] 1.8 mg/dL 1.6 - 2 .6 mg/dL [facility] Magnesium [Mass/Vol] 1.8 mg/dL Normal 1.6-2.6 [facility] Comment on above: Performed By: #### C A, IPB, MGO, CHM7, HFP, OSMO #### [facility] (DEFAULT) [address] [place] [address] 35776 No Panel Informationon 10-07 ABO/RH(D) TYPE Positive [facility] BLOOD COMPONENT TYPE Red Cells, Leukoreduced [facility] EXPIRATION DATE [facility] Product ABO/RH(D) Positive [facility] Product ABO/RH(D) NUMBER [id number] [facility] PRODUCT CODE [id number] [facility] Unit Compatibility Compatibile [facility] UNIT STATUS released [facility] Interpretation and review of laboratory results Normal [facility] No Panel InformationOrdered By: Razia Reece on 10-07-2024 Interpretation and review of laboratory results Normal [facility] PHOSPHATE, INORGANICon 10-07 Phosphate [Mass/Vol] 3.5 mg/dL 2.2 - 4 .6 mg/dL [facility] Phosphorous 3.5 mg/dL Normal 2.2-4.6 [facility] Comment on above: Performed By: #### C A, IPB, MGO, CHM7, HFP, OSMO #### [facility] (DEFAULT) [address] [place] [address] PREPARE TO TRANSFUSE OR RED BLOOD CELLSon 10-07-2024 UNIT NUMBER [id number] [facility] UNIT NUMBER [id number] [facility] Portable XR Chest Viewson RADIOLOGY RADIOLOGY [facility] Radiology Study observation (narrative) [facility] Portable XR Chest ViewsOrder ed By: Katerina Rivera on 10-07-2024 [facility] Work Phone: XR CHEST 1 VIEW PORTABLEon 0 10-07-2024 XR CHEST 1 VIEW PORTABLE EXAM: XR CHEST 1 VIEW PORTABLE, 10/07/2024 06:03 AM COMPARISON: XR CHEST 1 VIEW PORTABLE October 06, 2024 CLINICAL INDICATIONS: interval cxr RELEVANT CLINICAL HISTORY: FINDINGS: (Adequate technique) Implanted Devices: Two left-sided apical chest tubes, stable. Thorax: Decreased size of the small left-sided loculated hydropneumothorax. Right side remains clear. Cardiomediastinal silhouette and osseous structures unchanged IMPRESSION: Decreased size of small left-sided loculated hydropneumothorax I personally viewed and interpreted these images and I have reviewed and approved this report. Normal [facility] ABO/RH(D) TYPINGon ABO/RH(D) TYPE Positive [facility] ABO/RH(D) TYPE Positive Normal [facility] Comment on above: Result Comment: @ 10:21 by CT03: Performed By: #### Diana GREGG, XM #### [facility] (DEFAULT) [address] [place] [address] 89839 ABORH TYPE RECONFIRMATIONon 10-06-2024 ABO/RH(D) TYPE Positive [facility] ABO/RH(D) TYPE Positive Normal [facility] Comment on above: Result Comment: @ 14:09 by FT04: Performed By: #### H [facility] #### [facility] (DEFAULT) [address] [place] [address] 19470 ACID FAST CULTUREon 10-07-19 Bacteria identified Cx Nom (Unsp spec) Normal [facility] Comment on above: Result Comment: SEE SCANNED REPORT Testing performed by [facility] [address] [place] [address] Performed By: #### Diana GREGG, XM #### [facility] (DEFAULT) [address] [place] [address] 22884 Bacteria identified Cx Nom (Unsp spec) [facility] Comment on above: Result Comment: SEE SCANNED REPORT Testing performed by [facility] [address] [place] [address] Performed By: #### Diana GREGG, XM #### [facility] (DEFAULT) [address] [place] [address] 28988 BACTERIAL CULTURE AND DIRECT SMEAR, LESION, TISSUE, DEVICEon 10-06-2024 Bacteria identified Cx Nom (Unsp spec) NO GROWTH DAY 2 OF 2 Normal [facility] Comment on above: Performed By: #### Diana GREGG, XM #### [facility] (DEFAULT) [address] [place] [address] 14587 Microscopic observation Gram stain Nom (Unsp spec) Normal [facility] Comment on above: Result Comment: Neut rophils, Heavy Red Blood Cells Present No organisms seen Performed By: #### A MARYSOL, XM #### [facility] (DEFAULT) [address] [place] [address] BASIC METABOLIC PANELon 09-12 Anion gap [Moles/Vol] 13 mmol/L 7 - 17 mmol/L [facility] Calcium [Mass/Vol] 7.4 mg/dL Low 8.6 - 10. 5 mg/dL [facility] Chloride [Moles/Vol] 99 mmol/L 98 - 10 8 mmol/L [facility] CO2 [Moles/Vol] 25 mmol/L 21 - 31 mmol/L [facility] Creatinine [Mass/Vol] 0.54 mg/dL Low 0.70 - 1.30 mg/dL [facility] eGFR, CKD-EPI, Male - PINF [facility] Glucose [Mass/Vol] 126 mg/dL 70 - 179 mg/dL [facility] Interpretation and review of laboratory results Abnormal [facility] Osmolality Calc [Osmolality] 280 [facility] Potassium [Moles/Vol] 3.8 mmol/L 3.5 - 5.0 mmol/L [facility] Sodium [Moles/Vol] 133 mmol/L Low 135 - 145 mmol/L [facility] Urea nitrogen [Mass/Vol] 11 mg/dL 7 - 25 mg/dL [facility] Urea nitrogen/Creatinine [Mass ratio] 20 mg/mg [facility] Anion gap [Moles/Vol] 13 mmol/L Normal 7-17 [facility] Comment on above: Performed By: #### C A, IPB, MGO, CHM7, HFP, OSMO #### [facility] (DEFAULT) [address] [place] [address] Calcium [Mass/Vol] 7.4 mg/dL Low 8.6-10.5 [facility] Comment on above: Performed By: #### C A, IPB, MGO, CHM7, HFP, OSMO #### [facility] (DEFAULT) [address] [place] [address] 65525 Chloride [Moles/Vol] 99 mmol/L Normal 98-108 [facility] Comment on above: Performed By: #### C A, IPB, MGO, CHM7, HFP, OSMO #### [facility] (DEFAULT) [address] [place] [address] 82383 CO2 [Moles/Vol] 25 mmol/L Normal 21-31 [facility] Comment on above: Performed By: #### C A, IPB, MGO, CHM7, HFP, OSMO #### [facility] (DEFAULT) [address] [place] [address] 71763 Creatinine [Mass/Vol] 0.54 mg/dL Low 0.70-1.30 [facility] Comment on above: Performed By: #### C A, IPB, MGO, CHM7, HFP, OSMO #### [facility] (DEFAULT) [address] [place] [address] 68348 eGFR, CKD-EPI, Male > Normal >=60 [facility] Comment on above: Result Comment: Repo rted eGFR is based on the CKD-EPI 2020 equation using creatinine, age, and sex. Performed By: #### C A, IPB, MGO, CHM7, HFP, OSMO #### [facility] (DEFAULT) [address] [place] [address] 68909 Glucose [Mass/Vol] 126 mg/dL Normal Nonfastin -179 mg/dL; Fastin-99 [facility] Comment on above: Performed By: #### C A, IPB, MGO, CHM7, HFP, OSMO #### [facility] (DEFAULT) [address] [place] [address] 59990 Osmolality [Osmolality] 280 mosm/kg Normal 278-305 [facility] Comment on above: Performed By: #### C A, IPB, MGO, CHM7, HFP, OSMO #### [facility] (DEFAULT) [address] [place] [address] 18645 Potassium [Moles/Vol] 3.8 mmol/L Normal 3.5-5.0 [facility] Comment on above: Performed By: #### C A, IPB, MGO, CHM7, HFP, OSMO #### [facility] (DEFAULT) [address] [place] [address] 96443 Sodium [Moles/Vol] 133 mmol/L Low 135-145 [facility] Comment on above: Performed By: #### C A, IPB, MGO, CHM7, HFP, OSMO #### [facility] (DEFAULT) [address] [place] [address] 18560 Urea nitrogen [Mass/Vol] 11 mg/dL Normal 7-25 [facility] Comment on above: Performed By: #### C A, IPB, MGO, CHM7, HFP, OSMO #### [facility] (DEFAULT) [address] [place] [address] 56999 Urea nitrogen/Creatinine [Mass ratio] 20 mg/mg Normal [facility] Comment on above: Performed By: #### C A, IPB, MGO, CHM7, HFP, OSMO #### [facility] (DEFAULT) [address] [place] [address] 18909 Anion gap [Moles/Vol] 13 mmol/L 7 - 17 mmol/L [facility] Calcium [Mass/Vol] 7.6 mg/dL Low 8.6 - 10. 5 mg/dL [facility] Chloride [Moles/Vol] 96 mmol/L Low 98 - 10 8 mmol/L [facility] CO2 [Moles/Vol] 25 mmol/L 21 - 31 mmol/L [facility] Creatinine [Mass/Vol] 0.72 mg/dL 0.70 - 1.30 mg/dL [facility] eGFR, CKD-EPI, Male - PINF [facility] Glucose [Mass/Vol] 106 mg/dL 70 - 179 mg/dL [facility] Interpretation and review of laboratory results Abnormal [facility] Osmolality Calc [Osmolality] 274 Low [facility] Potassium [Moles/Vol] 3.7 mmol/L 3.5 - 5.0 mmol/L [facility] Sodium [Moles/Vol] 130 mmol/L Low 135 - 145 mmol/L [facility] Urea nitrogen [Mass/Vol] 14 mg/dL 7 - 25 mg/dL [facility] Urea nitrogen/Creatinine [Mass ratio] 19 mg/mg [facility] Anion gap [Moles/Vol] 13 mmol/L Normal 7-17 [facility] Comment on above: Performed By: #### C A, IPB, MGO, CHM7, HFP, OSMO #### [facility] (DEFAULT) [address] [place] [address] 28308 Calcium [Mass/Vol] 7.6 mg/dL Low 8.6-10.5 [facility] Comment on above: Performed By: #### C A, IPB, MGO, CHM7, HFP, OSMO #### [facility] (DEFAULT) [address] [place] [address] 91936 Chloride [Moles/Vol] 96 mmol/L Low 98-108 [facility] Comment on above: Performed By: #### C A, IPB, MGO, CHM7, HFP, OSMO #### [facility] (DEFAULT) [address] [place] [address] 86460 CO2 [Moles/Vol] 25 mmol/L Normal 21-31 [facility] Comment on above: Performed By: #### C A, IPB, MGO, CHM7, HFP, OSMO #### [facility] (DEFAULT) [address] [place] [address] 32797 Creatinine [Mass/Vol] 0.72 mg/dL Normal 0.70-1.30 [facility] Comment on above: Performed By: #### C A, IPB, MGO, CHM7, HFP, OSMO #### [facility] (DEFAULT) [address] [place] [address] 03489 eGFR, CKD-EPI, Male > Normal >=60 [facility] Comment on above: Result Comment: Repo rted eGFR is based on the CKD-EPI 2020 equation using creatinine, age, and sex. Performed By: #### C A, IPB, MGO, CHM7, HFP, OSMO #### [facility] (DEFAULT) [address] [place] [address] 95840 Glucose [Mass/Vol] 106 mg/dL Normal Nonfastin -179 mg/dL; Fastin-99 [facility] Comment on above: Performed By: #### C A, IPB, MGO, CHM7, HFP, OSMO #### [facility] (DEFAULT) [address] [place] [address] 51912 Osmolality [Osmolality] 274 mosm/kg Low 278-305 [facility] Comment on above: Performed By: #### C A, IPB, MGO, CHM7, HFP, OSMO #### [facility] (DEFAULT) [address] [place] [address] 20229 Potassium [Moles/Vol] 3.7 mmol/L Normal 3.5-5.0 [facility] Comment on above: Performed By: #### C A, IPB, MGO, CHM7, HFP, OSMO #### [facility] (DEFAULT) [address] [place] [address] 64929 Sodium [Moles/Vol] 130 mmol/L Low 135-145 [facility] Comment on above: Performed By: #### C A, IPB, MGO, CHM7, HFP, OSMO #### [facility] (DEFAULT) [address] [place] [address] 64314 Urea nitrogen [Mass/Vol] 14 mg/dL Normal 7-25 [facility] Comment on above: Performed By: #### C A, IPB, MGO, CHM7, HFP, OSMO #### [facility] (DEFAULT) [address] [place] [address] Urea nitrogen/Creatinine [Mass ratio] 19 mg/mg Normal [facility] Comment on above: Performed By: #### C A, IPB, MGO, CHM7, HFP, OSMO #### [facility] (DEFAULT) [address] [place] [address] 71328 CBC,PLATELETSon 10-06-2024 Erythrocyte distribution width (RBC) [Ratio] 13.5 % 10.9 - 14.3 % [facility] Hematocrit (Bld) [Volume fraction] 26.7 % Low 39.6 - 48.8 % [facility] Hemoglobin (Bld) [Mass/Vol] 8.8 g/dL Low 13.4 - 16.8 g/dL [facility] Interpretation and review of laboratory results Abnormal [facility] MCH (RBC) [Entitic mass] 29.0 pg 26.1 - 33.3 pg [facility] MCHC (RBC) [Mass/Vol] 33.0 g/dL 31.9 - 36.5 g/dL [facility] MCV (RBC) [Entitic vol] 88.1 fL 79.0 - 94.5 fL [facility] Platelet mean volume (Bld) [Entitic vol] 8.5 fL Low 8.7 - 12.3 fL [facility] Platelets (Bld) [#/Vol] 578 10*3/uL High 146 - 337 K/uL [facility] RBC (Bld) [#/Vol] 3.03 10*6/uL Low [facility] WBC (Bld) [#/Vol] 12.50 10*3/uL High 3.73 - 10 .10 K/uL [facility] Hematocrit (Bld) [Volume fraction] 26.7 % Low 39.6-48.8 [facility] Comment on above: Performed By: #### A MARYSOL, VLADIMIR #### [facility] (DEFAULT) [address] [place] [address] 35885 Hemoglobin (Bld) [Mass/Vol] 8.8 g/dL Low 13.4-16.8 [facility] Comment on above: Performed By: #### Diana GREGG, XM #### [facility] (DEFAULT) [address] [place] [address] 83113 MCV (RBC) [Entitic vol] 88.1 fL Normal 79.0-94.5 [facility] Comment on above: Performed By: #### Diana GREGG, XM #### [facility] (DEFAULT) [address] [place] [address] 86076 Mean Cell Hgb 29.0 pg Normal 26.1-33.3 [facility] Comment on above: Performed By: #### Diana GREGG, XM #### [facility] (DEFAULT) [address] [place] [address] 40659 Mean Cell Hgb Conc 33.0 g/dL Normal 31.9-36.5 [facility] Comment on above: Performed By: #### Diana GREGG, XM #### [facility] (DEFAULT) [address] [place] [address] 59661 Platelet mean volume (Bld) [Entitic vol] 8.5 fL Low 8.7-12.3 [facility] Comment on above: Performed By: #### Diana GREGG, XM #### [facility] (DEFAULT) [address] [place] [address] 59263 Platelets (Bld) [#/Vol] 578 10*3/uL High 146-337 [facility] Comment on above: Performed By: #### Diana GREGG, XM #### [facility] (DEFAULT) [address] [place] [address] 31658 RBC (Bld) [#/Vol] 3.03 10*6/uL Low 4.38-5.83 [facility] Comment on above: Performed By: #### Diana GREGG, XM #### [facility] (DEFAULT) [address] [place] [address] 29850 RBC Distribution 13.5 % Normal 10.9-14.3 [facility] Comment on above: Performed By: #### A MARYSOL, XM #### [facility] (DEFAULT) [address] [place] [address] WBC (Bld) [#/Vol] 12.50 10*3/uL High 3.73-10.10 [facility] Comment on above: Performed By: #### A MARYSOL, XM #### [facility] (DEFAULT) [address] [place] [address] Erythrocyte distribution width (RBC) [Ratio] 13.5 % 10.9 - 14.3 % [facility] Hematocrit (Bld) [Volume fraction] 28.4 % Low 39.6 - 48.8 % [facility] Hemoglobin (Bld) [Mass/Vol] 9.3 g/dL Low 13.4 - 16.8 g/dL [facility] Interpretation and review of laboratory results Abnormal [facility] MCH (RBC) [Entitic mass] 28.6 pg 26.1 - 33.3 pg [facility] MCHC (RBC) [Mass/Vol] 32.7 g/dL 31.9 - 36.5 g/dL [facility] MCV (RBC) [Entitic vol] 87.4 fL 79.0 - 94.5 fL [facility] Platelet mean volume (Bld) [Entitic vol] 8.9 fL 8.7 - 12.3 fL [facility] Platelets (Bld) [#/Vol] 617 10*3/uL High 146 - 337 K/uL [facility] RBC (Bld) [#/Vol] 3.25 10*6/uL Low [facility] WBC (Bld) [#/Vol] 5.76 10*3/uL 3.73 - 10. 10 K/uL [facility] Hematocrit (Bld) [Volume fraction] 28.4 % Low 39.6-48.8 [facility] Comment on above: Performed By: #### C A, IPB, MGO, CHM7, HFP, OSMO #### [facility] (DEFAULT) [address] [place] [address] 20998 Hemoglobin (Bld) [Mass/Vol] 9.3 g/dL Low 13.4-16.8 [facility] Comment on above: Performed By: #### C A, IPB, MGO, CHM7, HFP, OSMO #### [facility] (DEFAULT) [address] [place] [address] 17620 MCV (RBC) [Entitic vol] 87.4 fL Normal 79.0-94.5 [facility] Comment on above: Performed By: #### C A, IPB, MGO, CHM7, HFP, OSMO #### [facility] (DEFAULT) [address] [place] [address] 21319 Mean Cell Hgb 28.6 pg Normal 26.1-33.3 [facility] Comment on above: Performed By: #### C A, IPB, MGO, CHM7, HFP, OSMO #### [facility] (DEFAULT) [address] [place] [address] 49112 Mean Cell Hgb Conc 32.7 g/dL Normal 31.9-36.5 [facility] Comment on above: Performed By: #### C A, IPB, MGO, CHM7, HFP, OSMO #### [facility] (DEFAULT) [address] [place] [address] 99310 Platelet mean volume (Bld) [Entitic vol] 8.9 fL Normal 8.7-12.3 [facility] Comment on above: Performed By: #### C A, IPB, MGO, CHM7, HFP, OSMO #### [facility] (DEFAULT) [address] [place] [address] 26470 Platelets (Bld) [#/Vol] 617 10*3/uL High 146-337 [facility] Comment on above: Performed By: #### C A, IPB, MGO, CHM7, HFP, OSMO #### [facility] (DEFAULT) [address] [place] [address] 92991 RBC (Bld) [#/Vol] 3.25 10*6/uL Low 4.38-5.83 [facility] Comment on above: Performed By: #### C A, IPB, MGO, CHM7, HFP, OSMO #### [facility] (DEFAULT) [address] [place] [address] 06011 RBC Distribution 13.5 % Normal 10.9-14.3 [facility] Comment on above: Performed By: #### C A, IPB, MGO, CHM7, HFP, OSMO #### [facility] (DEFAULT) [address] [place] [address] 11463 WBC (Bld) [#/Vol] 5.76 10*3/uL Normal 3.73-10.10 [facility] Comment on above: Performed By: #### C A, IPB, MGO, CHM7, HFP, OSMO #### [facility] (DEFAULT) [address] [place] [address] 43787 CONTINUOUS CARDIAC MONITORIN G STRIPOrdered By: Unassigned Pacs on 10-06-2024 [facility] Work Phone: Culture, Anaerobic Any Sourc audra 10-06-2024 CUAN UNKNOWN UNKNOWN with flow cytometry please #3 Studies have confirmed that Anaerobic Gram Positive Cocci are routinely SUSCEPTABLE to Penicillin and generally susceptible to Beta-lactams and Beta-lactamase inhibitors, Cephalosporins, Carbapenems and Metronidazole. They are showing increased RESISTANCE to Clindamycin Parvimonas micra Schaalia canis Anaerobic cocci Fusobacterium nucleatum Normal [facility] Comment on above: Performed By: #### L 500.4050, L100.0100, L501.9910, L500.4100 #### [facility] [address] [place], [place], [id number] FUNGUS CULTUREon 10-06-2024 Bacteria identified Cx Nom (Unsp spec) NO GROWTH DAY 28 OF 28 Normal [facility] Comment on above: Performed By: #### Diana GREGG, XM #### [facility] (DEFAULT) [address] [place] [address] 95990 Bacteria identified Cx Nom (Unsp spec) NO GROWTH DAY 28 OF 28 Normal [facility] Comment on above: Performed By: #### Diana GREGG, XM #### [facility] (DEFAULT) [address] [place] [address] 45654 LOWER RESPIRATORY CULTURE, B ACTERIALon 10-06-2024 Bacteria identified Cx Nom (Unsp spec) NO GROWTH DAY 2 OF 2 Normal [facility] Comment on above: Performed By: #### Diana GREGG, XM #### [facility] (DEFAULT) [address] [place] [address] 99307 Microscopic observation Gram stain Nom (Unsp spec) Normal [facility] Comment on above: Result Comment: Cyto centrifuge preparation Neutrophils, None No organisms seen Performed By: #### Diana GREGG, XM #### [facility] (DEFAULT) [address] [place] [address] 91013 Portable XR Chest Viewson RADIOLOGY RADIOLOGY [facility] Radiology Study observation (narrative) [facility] RADIOLOGY RADIOLOGY [facility] Radiology Study observation (narrative) [facility] Portable XR Chest ViewsOrder ed By: Ioana Jones on 10-06-2024 [facility] Work Phone: TYPE AND SCREENon 10-06-2024 Specimen Expiration 10/09/2024 23:59 [facility] Specimen Expiration 10/09/2024 23:59 [facility] Comment on above: Performed By: #### Diana GREGG, XM #### [facility] (DEFAULT) [address] [place] [address] 72886 XR CHEST 1 VIEW PORTABLEon 0 10-06-2024 XR CHEST 1 VIEW PORTABLE EXAM: XR CHEST 1 VIEW PORTABLE, 10/06/2024 21:35 PM COMPARISON: October 06, 2024] 0448 hours. CLINICAL INDICATIONS: Pneumothorax RELEVANT CLINICAL HISTORY: In PACU or SICU; FINDINGS: (Adequate technique) Implanted Devices: Interval placement of 2 left-sided chest tubes, with their tips overlying the left lung apex. Thorax: Small circumferentially loculated left-sided hydropneumothorax. Left basilar atelectatic foci. The right lung is clear. The cardiomediastinal silhouette is within normal limits. IMPRESSION: 1. Interval placement of 2 left-sided chest tubes. 2. Small circumferentially loculated left-sided hydropneumothorax. Normal [facility] XR CHEST 1 VIEW PORTABLE EXAM: XR CHEST 1 VIEW PORTABLE, 10/06/2024 04:50 AM COMPARISON: XR CHEST 1 VIEW PORTABLE October 05, 2024 CLINICAL INDICATIONS: f/u chest tube placement RELEVANT CLINICAL HISTORY: FINDINGS: (Adequate technique) Mild decrease in size of left basilar hydropneumothorax and increased size of left apical pneumothorax. No other change. IMPRESSION: Mild decrease in size of left basilar hydropneumothorax and increased size of left apical pneumothorax. Normal [facility] *CHEST TUBE INSERTIONon 09-12 Radiology Study observation (narrative) [facility] CBC,PLATELETSon 10-05-2024 Erythrocyte distribution width (RBC) [Ratio] 13.6 % 10.9 - 14.3 % [facility] Hematocrit (Bld) [Volume fraction] 27.1 % Low 39.6 - 48.8 % [facility] Hemoglobin (Bld) [Mass/Vol] 9.1 g/dL Low 13.4 - 16.8 g/dL [facility] Interpretation and review of laboratory results Abnormal [facility] MCH (RBC) [Entitic mass] 29.3 pg 26.1 - 33.3 pg [facility] MCHC (RBC) [Mass/Vol] 33.6 g/dL 31.9 - 36.5 g/dL [facility] MCV (RBC) [Entitic vol] 87.1 fL 79.0 - 94.5 fL [facility] Platelet mean volume (Bld) [Entitic vol] 8.8 fL 8.7 - 12.3 fL [facility] Platelets (Bld) [#/Vol] 571 10*3/uL High 146 - 337 K/uL [facility] RBC (Bld) [#/Vol] 3.11 10*6/uL Low [facility] WBC (Bld) [#/Vol] 4.99 10*3/uL 3.73 - 10. 10 K/uL [facility] Hematocrit (Bld) [Volume fraction] 27.1 % Low 39.6-48.8 [facility] Comment on above: Performed By: #### H [facility] #### [facility] (DEFAULT) [address] [address] Hemoglobin (Bld) [Mass/Vol] 9.1 g/dL Low 13.4-16.8 [facility] Comment on above: Performed By: #### H EMO #### [facility] (DEFAULT) [address] [address] MCV (RBC) [Entitic vol] 87.1 fL Normal 79.0-94.5 [facility] Comment on above: Performed By: #### H EMOGC #### [facility] (DEFAULT) [address] [address] Mean Cell Hgb 29.3 pg Normal 26.1-33.3 [facility] Comment on above: Performed By: #### H EMOGC #### [facility] (DEFAULT) [address] [address] Mean Cell Hgb Conc 33.6 g/dL Normal 31.9-36.5 [facility] Comment on above: Performed By: #### H EMOGC #### [facility] (DEFAULT) [address] [place] [address] 92054 Platelet mean volume (Bld) [Entitic vol] 8.8 fL Normal 8.7-12.3 [facility] Comment on above: Performed By: #### H EMO #### [facility] (DEFAULT) [address] [place] [address] 71164 Platelets (Bld) [#/Vol] 571 10*3/uL High 146-337 [facility] Comment on above: Performed By: #### H EMO #### [facility] (DEFAULT) [address] [place] [address] 62845 RBC (Bld) [#/Vol] 3.11 10*6/uL Low 4.38-5.83 [facility] Comment on above: Performed By: #### H EMO #### [facility] (DEFAULT) [address] [place] [address] 84233 RBC Distribution 13.6 % Normal 10.9-14.3 [facility] Comment on above: Performed By: #### H EMO #### [facility] (DEFAULT) [address] [place] [address] 35338 WBC (Bld) [#/Vol] 4.99 10*3/uL Normal 3.73-10.10 [facility] Comment on above: Performed By: #### H EMOGC #### [facility] (DEFAULT) [address] [place] [address] 06649 CHEM 7 (LYTES,BUN,CREA,GLUC) on 10-05-2024 Anion gap [Moles/Vol] 12 mmol/L 7 - 17 mmol/L [facility] Chloride [Moles/Vol] 97 mmol/L Low 98 - 10 8 mmol/L [facility] CO2 [Moles/Vol] 25 mmol/L 21 - 31 mmol/L [facility] Creatinine [Mass/Vol] 0.73 mg/dL 0.70 - 1.30 mg/dL [facility] eGFR, CKD-EPI, Male - PINF [facility] Glucose [Mass/Vol] 95 mg/dL 70 - 179 mg/dL [facility] Interpretation and review of laboratory results Abnormal [facility] Osmolality Calc [Osmolality] 274 Low [facility] Potassium [Moles/Vol] 3.6 mmol/L 3.5 - 5.0 mmol/L [facility] Sodium [Moles/Vol] 130 mmol/L Low 135 - 145 mmol/L [facility] Urea nitrogen [Mass/Vol] 16 mg/dL 7 - 25 mg/dL [facility] Urea nitrogen/Creatinine [Mass ratio] 22 mg/mg [facility] Anion gap [Moles/Vol] 12 mmol/L Normal 7-17 [facility] Comment on above: Performed By: #### C A, IPB, MGO, CHM7, HFP, OSMO #### [facility] (DEFAULT) [address] [place] [address] 79420 Chloride [Moles/Vol] 97 mmol/L Low 98-108 [facility] Comment on above: Performed By: #### C A, IPB, MGO, CHM7, HFP, OSMO #### [facility] (DEFAULT) [address] [place] [address] 84919 CO2 [Moles/Vol] 25 mmol/L Normal 21-31 [facility] Comment on above: Performed By: #### C A, IPB, MGO, CHM7, HFP, OSMO #### [facility] (DEFAULT) [address] [place] [address] Creatinine [Mass/Vol] 0.73 mg/dL Normal 0.70-1.30 [facility] Comment on above: Performed By: #### C A, IPB, MGO, CHM7, HFP, OSMO #### [facility] (DEFAULT) [address] [place] [address] 37790 eGFR, CKD-EPI, Male > Normal >=60 [facility] Comment on above: Result Comment: Repo rted eGFR is based on the CKD-EPI 2020 equation using creatinine, age, and sex. Performed By: #### C A, IPB, MGO, CHM7, HFP, OSMO #### [facility] (DEFAULT) [address] [place] [address] 72161 Glucose [Mass/Vol] 95 mg/dL Normal Nonfastin -179 mg/dL; Fastin-99 [facility] Comment on above: Performed By: #### C A, IPB, MGO, CHM7, HFP, OSMO #### [facility] (DEFAULT) [address] [place] [address] 59777 Osmolality [Osmolality] 274 mosm/kg Low 278-305 [facility] Comment on above: Performed By: #### C A, IPB, MGO, CHM7, HFP, OSMO #### [facility] (DEFAULT) [address] [place] [address] 38082 Potassium [Moles/Vol] 3.6 mmol/L Normal 3.5-5.0 [facility] Comment on above: Performed By: #### C A, IPB, MGO, CHM7, HFP, OSMO #### [facility] (DEFAULT) [address] [place] [address] 20552 Sodium [Moles/Vol] 130 mmol/L Low 135-145 [facility] Comment on above: Performed By: #### C A, IPB, MGO, CHM7, HFP, OSMO #### [facility] (DEFAULT) [address] [place] [address] 75475 Urea nitrogen [Mass/Vol] 16 mg/dL Normal 7-25 [facility] Comment on above: Performed By: #### C A, IPB, MGO, CHM7, HFP, OSMO #### [facility] (DEFAULT) [address] [place] [address] 45364 Urea nitrogen/Creatinine [Mass ratio] 22 mg/mg Normal [facility] Comment on above: Performed By: #### C A, IPB, MGO, CHM7, HFP, OSMO #### [facility] (DEFAULT) [address] [place] [address] CT CHEST WITHOUT CONTRASTon 10-05-2024 CT CHEST WITHOUT CONTRAST EXAM: CT CHEST WITHOUT CONTRAST, 10/05/2024 12:15 PM COMPARISON: CT CHEST (OUTSIDE IMAGE) September 28, 2024, IR CHEST TUBE PLACEMENT October 01, 2024 CLINICAL INDICATIONS: f/u empeyma RELEVANT CLINICAL HISTORY: TECHNIQUE: CT images of the chest were obtained without intravenous contrast. FINDINGS: Lungs and Pleura: New placement of left thoracostomy tube was placed in the lower pleural space. Significantly decreased size of the left pleural effusion with new small left pneumothorax and subsequently improved left lung atelectasis. New small right pleural effusion and mild adjacent atelectasis. Stable right upper lobe 4 cm thin-walled cyst. Tracheobronchial tree: No abnormality. Mediastinum/Sammie: No mediastinal or hilar lymphadenopathy. Stable moderate-sized hiatal hernia. Axilla and Supraclavicular Regions: No axillary or supraclavicular adenopathy. Cardiovascular: The cardiac chambers are within normal limits. Mildly enlarging small pericardial effusion. Triple vessel coronary artery calcification. Dilated main pulmonary artery, measuring 3.6 cm. Upper Abdomen: Limited evaluation. 2 cystic lesions are seen in the left hepatic lobe. Bones and Soft Tissue: No suspicious osseous lesion. Degenerative change of thoracic spine. Left upper abdominal wall subcutaneous edema. IMPRESSION: 1. Significantly decreased size of moderately large multiloculated left pleural effusion after chest tube placement, now with new small left pneumothorax and improved left lung atelectasis. 2. New small right pleural effusion and mild adjacent atelectasis. 3. Mildly enlarging small pericardial effusion. I personally viewed and interpreted these images and I have reviewed and approved this report. Normal [facility] CT Chest WO contraston 10-05 RADIOLOGY RADIOLOGY [facility] Radiology Study observation (narrative) [facility] Portable XR Chest Viewson RADIOLOGY RADIOLOGY [facility] Radiology Study observation (narrative) [facility] SODIUMon 10-05-2024 Interpretation and review of laboratory results Abnormal [facility] Sodium [Moles/Vol] 130 mmol/L Low 135 - 145 mmol/L [facility] Sodium [Moles/Vol] 130 mmol/L Low 135-145 [facility] Comment on above: Performed By: #### C A, IPB, MGO, CHM7, HFP, OSMO #### [facility] (DEFAULT) [address] [place] [address] XR CHEST 1 VIEW PORTABLEon 0 10-05-2024 XR CHEST 1 VIEW PORTABLE EXAM: XR CHEST 1 VIEW PORTABLE, 10/05/2024 07:19 AM COMPARISON: October 04, 2024 CLINICAL INDICATIONS: f/u effusion RELEVANT CLINICAL HISTORY: FINDINGS: (Adequate technique) Implanted Devices: Stable left pigtail pleural drain. Thorax: Decreased size of left pleural effusion. Stable size of small left-sided pneumothorax. IMPRESSION: Decreasing size of left pleural effusion with stable small residual left pneumothorax. Normal [facility] CBC,PLATELETSon 10-04-2024 Erythrocyte distribution width (RBC) [Ratio] 13.5 % 10.9 - 14.3 % [facility] Hematocrit (Bld) [Volume fraction] 29.3 % Low 39.6 - 48.8 % [facility] Hemoglobin (Bld) [Mass/Vol] 9.9 g/dL Low 13.4 - 16.8 g/dL [facility] Interpretation and review of laboratory results Abnormal [facility] MCH (RBC) [Entitic mass] 28.8 pg 26.1 - 33.3 pg [facility] MCHC (RBC) [Mass/Vol] 33.8 g/dL 31.9 - 36.5 g/dL [facility] MCV (RBC) [Entitic vol] 85.2 fL 79.0 - 94.5 fL [facility] Platelet mean volume (Bld) [Entitic vol] 8.8 fL 8.7 - 12.3 fL [facility] Platelets (Bld) [#/Vol] 611 10*3/uL High 146 - 337 K/uL [facility] RBC (Bld) [#/Vol] 3.44 10*6/uL Low [facility] WBC (Bld) [#/Vol] 6.74 10*3/uL 3.73 - 10. 10 K/uL [facility] Hematocrit (Bld) [Volume fraction] 29.3 % Low 39.6-48.8 [facility] Comment on above: Performed By: #### C A, IPB, MGO, CHM7, HFP, OSMO #### [facility] (DEFAULT) [address] [place] [address] 01177 Hemoglobin (Bld) [Mass/Vol] 9.9 g/dL Low 13.4-16.8 [facility] Comment on above: Performed By: #### C A, IPB, MGO, CHM7, HFP, OSMO #### [facility] (DEFAULT) [address] [place] [address] 28353 MCV (RBC) [Entitic vol] 85.2 fL Normal 79.0-94.5 [facility] Comment on above: Performed By: #### C A, IPB, MGO, CHM7, HFP, OSMO #### [facility] (DEFAULT) [address] [place] [address] 58987 Mean Cell Hgb 28.8 pg Normal 26.1-33.3 [facility] Comment on above: Performed By: #### C A, IPB, MGO, CHM7, HFP, OSMO #### [facility] (DEFAULT) [address] [place] [address] 17901 Mean Cell Hgb Conc 33.8 g/dL Normal 31.9-36.5 [facility] Comment on above: Performed By: #### C A, IPB, MGO, CHM7, HFP, OSMO #### [facility] (DEFAULT) [address] [place] [address] 39871 Platelet mean volume (Bld) [Entitic vol] 8.8 fL Normal 8.7-12.3 [facility] Comment on above: Performed By: #### C A, IPB, MGO, CHM7, HFP, OSMO #### [facility] (DEFAULT) [address] [place] [address] 98700 Platelets (Bld) [#/Vol] 611 10*3/uL High 146-337 [facility] Comment on above: Performed By: #### C A, IPB, MGO, CHM7, HFP, OSMO #### [facility] (DEFAULT) [address] [place] [address] 27407 RBC (Bld) [#/Vol] 3.44 10*6/uL Low 4.38-5.83 [facility] Comment on above: Performed By: #### C A, IPB, MGO, CHM7, HFP, OSMO #### [facility] (DEFAULT) [address] [place] [address] 33759 RBC Distribution 13.5 % Normal 10.9-14.3 [facility] Comment on above: Performed By: #### C A, IPB, MGO, CHM7, HFP, OSMO #### [facility] (DEFAULT) [address] [place] [address] 98719 WBC (Bld) [#/Vol] 6.74 10*3/uL Normal 3.73-10.10 [facility] Comment on above: Performed By: #### C A, IPB, MGO, CHM7, HFP, OSMO #### [facility] (DEFAULT) [address] [place] [address] 77143 CHEM 7 (LYTES,BUN,CREA,GLUC) on 10-04-2024 Anion gap [Moles/Vol] 14 mmol/L 7 - 17 mmol/L [facility] Chloride [Moles/Vol] 97 mmol/L Low 98 - 10 8 mmol/L [facility] CO2 [Moles/Vol] 21 mmol/L 21 - 31 mmol/L [facility] Creatinine [Mass/Vol] 0.72 mg/dL 0.70 - 1.30 mg/dL [facility] eGFR, CKD-EPI, Male - PINF [facility] Glucose [Mass/Vol] 92 mg/dL 70 - 179 mg/dL [facility] Interpretation and review of laboratory results Abnormal [facility] Osmolality Calc [Osmolality] 271 Low [facility] Potassium [Moles/Vol] 4.2 mmol/L 3.5 - 5.0 mmol/L [facility] Sodium [Moles/Vol] 128 mmol/L Low 135 - 145 mmol/L [facility] Urea nitrogen [Mass/Vol] 15 mg/dL 7 - 25 mg/dL [facility] Urea nitrogen/Creatinine [Mass ratio] 21 mg/mg [facility] Anion gap [Moles/Vol] 14 mmol/L Normal 7-17 [facility] Comment on above: Performed By: ###VLADIMIR CAGE #### [facility] (DEFAULT) [address] [place] [address] 02159 Chloride [Moles/Vol] 97 mmol/L Low 98-108 [facility] Comment on above: Performed By: ###VLADIMIR CAGE #### [facility] (DEFAULT) [address] [place] [address] CO2 [Moles/Vol] 21 mmol/L Normal 21-31 [facility] Comment on above: Performed By: ###VLADIMIR CAGE #### [facility] (DEFAULT) [address] [place] [address] 79197 Creatinine [Mass/Vol] 0.72 mg/dL Normal 0.70-1.30 [facility] Comment on above: Performed By: ###VLADIMIR CAGE #### [facility] (DEFAULT) [address] [place] [address] 57604 Glucose [Mass/Vol] 92 mg/dL Normal Nonfastin -179 mg/dL; Fastin-99 [facility] Comment on above: Performed By: #### Diana GREGG, XM #### [facility] (DEFAULT) [address] [place] [address] 24838 Osmolality [Osmolality] 271 mosm/kg Low 278-305 [facility] Comment on above: Performed By: #### Diana GREGG, XM #### [facility] (DEFAULT) [address] [place] [address] 46310 Potassium [Moles/Vol] 4.2 mmol/L Normal 3.5-5.0 [facility] Comment on above: Performed By: #### Diana GREGG, XM #### [facility] (DEFAULT) [address] [place] [address] 83230 Sodium [Moles/Vol] 128 mmol/L Low 135-145 [facility] Comment on above: Performed By: #### Diana GREGG, XM #### [facility] (DEFAULT) [address] [place] [address] 68338 Urea nitrogen [Mass/Vol] 15 mg/dL Normal 7-25 [facility] Comment on above: Performed By: #### Diana GREGG, XM #### [facility] (DEFAULT) [address] [place] [address] 40093 Urea nitrogen/Creatinine [Mass ratio] 21 mg/mg Normal [facility] Comment on above: Performed By: #### Diana GREGG, XM #### [facility] (DEFAULT) [address] [place] [address] 75349 CREATININEon 10-04-2024 Creatinine [Mass/Vol] 0.68 mg/dL Low 0.70 - 1.30 mg/dL [facility] eGFR, CKD-EPI, Male - PINF [facility] Creatinine [Mass/Vol] 0.68 mg/dL Low 0.70-1.30 [facility] Comment on above: Performed By: #### A MARYSOL, XM #### [facility] (DEFAULT) [address] [place] [address] 77787 eGFR, CKD-EPI, Male > Normal >=60 [facility] Comment on above: Result Comment: Repo rted eGFR is based on the CKD-EPI 2020 equation using creatinine, age, and sex. Performed By: #### A MARYSOL, XM #### [facility] (DEFAULT) [address] [place] [address] 43388 Culture, Blood (WB)on 2024 CUB Blood cultures x2, f rom two different sites No growth in 5 days. Normal [facility] Comment on above: Performed By: #### L 300.3900, L300.4310, L100.1900 #### [facility] [address] [place], [address] Performed By: #### L 500.4050, L100.0100, L501.9910, L500.4100 #### [facility] [address] [place], [address] NT-PRO B-TYPE NATRIURETIC PE PTIDEon 10-04-2024 Interpretation and review of laboratory results Abnormal [facility] Natriuretic peptide.B prohormone N-Terminal IA [Mass/Vol] 1932 pg/mL High NINF - 540 pg/mL [facility] Natriuretic peptide B (Bld) [Mass/Vol] 1932 pg/mL High <=540 [facility] Comment on above: Performed By: #### C A, IPB, MGO, CHM7, HFP, OSMO #### [facility] (DEFAULT) [address] [place] [address] 42981 No Panel Informationon 10-04 Interpretation and review of laboratory results Abnormal [facility] Portable XR Chest Viewson RADIOLOGY RADIOLOGY [facility] Radiology Study observation (narrative) [facility] VANCOMYCIN LEVEL, RANDOMon 0 10-04-2024 Vancomycin [Mass/Vol] 9.7 Low [facility] Vancomycin 9.7 mcg/mL Low Peak: 20.0-40.0 mcg/mL, Trough: 10.0-20.0 mcg/mL [facility] Comment on above: Order Comment: Pleas e draw level as scheduled. Performed By: #### A MARYSOL, #### [facility] (DEFAULT) [address] [place] [address] XR CHEST 1 VIEW PORTABLEon 0 10-04-2024 XR CHEST 1 VIEW PORTABLE EXAM: XR CHEST 1 VIEW PORTABLE, 10/04/2024 03:11 AM COMPARISON: XR CHEST 1 VIEW PORTABLE October 03, 2024 CLINICAL INDICATIONS: follow up on empeyema RELEVANT CLINICAL HISTORY: FINDINGS: (Adequate technique) Improved left pleural effusion. Stable left apical pneumothorax. No other change. IMPRESSION: Improved left pleural effusion. Stable left apical pneumothorax. Normal [facility] BACTERIAL CULTURE AND DIRECT SMEAR, LESION, TISSUE, DEVICEon 10-03-2024 Bacteria identified Cx Nom (Unsp spec) Growth [facility] Bacteria identified Cx Nom (Unsp spec) STREPTOCOCCUS INTERMEDIUS Abnormal [facility] Bacteria identified Cx Nom ( Unsp spec)on 10-03-2024 Interpretation and review of laboratory results Abnormal [facility] Microscopic observation Other stain Nom (Unsp spec) Neutrophils, Heavy [facility] Microscopic observation Other stain Nom (Unsp spec) Red Blood Cells Present OS [facility] Microscopic observation Other stain Nom (Unsp spec) Positive [facility] CREATININEon 10-03-2024 Creatinine [Mass/Vol] 0.75 mg/dL 0.70 - 1.30 mg/dL [facility] eGFR, CKD-EPI, Male - PINF [facility] Interpretation and review of laboratory results Normal [facility] Creatinine [Mass/Vol] 0.75 mg/dL Normal 0.70-1.30 [facility] Comment on above: Performed By: #### C A, IPB, MGO, CHM7, HFP, OSMO #### [facility] (DEFAULT) [address] [place] [address] eGFR, CKD-EPI, Male > Normal >=60 [facility] Comment on above: Result Comment: Repo rted eGFR is based on the CKD-EPI 2020 equation using creatinine, age, and sex. Performed By: #### C A, IPB, MGO, CHM7, HFP, OSMO #### [facility] (DEFAULT) [address] [place] [address] 76717 Portable XR Chest Viewson RADIOLOGY RADIOLOGY [facility] Radiology Study observation (narrative) [facility] VANCOMYCIN LEVEL, TROUGH (UT E DRUG LEVEL)Ordered By: Sarah Dooley on 10-03-2024 Interpretation and review of laboratory results Abnormal [facility] Vancomycin trough [Mass/Vol] 45.5 ug/mL Critically high [facility] VANCOMYCIN LEVEL, TROUGH (UT E DRUG LEVEL)on 10-03-2024 Vancomycin, Trough 45.5 mcg/mL Critically high Therap eutic Range: 10.0-20.0 mcg/mL [facility] Comment on above: Order Comment: Pleas e draw level at specified interval 1 hour PRIOR to next vancomycin dose. Do not administer vancomycin if level >20 Performed By: #### C A, IPB, MGO, CHM7, HFP, OSMO #### [facility] (DEFAULT) [address] [place] [address] 62471 XR CHEST 1 VIEW PORTABLEon 0 10-03-2024 XR CHEST 1 VIEW PORTABLE EXAM: XR CHEST 1 VIEW PORTABLE, 10/03/2024 03:19 AM COMPARISON: XR CHEST 1 VIEW PORTABLE October 02, 2024 CLINICAL INDICATIONS: r/o ptx RELEVANT CLINICAL HISTORY: FINDINGS: (Adequate technique) Implanted Devices: Stable Thorax: No significant interval change of left hydropneumothorax and adjacent atelectasis. Right lung is clear. Stable cardiomediastinal silhouette and osseous structures. IMPRESSION: No significant change from the previous examination Normal [facility] BACTERIAL CULTURE AND DIRECT SMEAR, LESION, TISSUE, DEVICEOrdered By: Lucy Birmingham on 10-02-2024 Bacteria identified Cx Nom (Unsp spec) Growth [facility] Bacteria identified Cx Nom (Unsp spec) STREPTOCOCCUS INTERMEDIUS Abnormal [facility] Bacteria identified Cx Nom ( Unsp spec)Ordered By: Lucy Birmingham on 10-02-2024 Interpretation and review of laboratory results Abnormal [facility] Microscopic observation Other stain Nom (Unsp spec) [facility]ils, [facility] Microscopic observation Other stain Nom (Unsp spec) Red Blood Cells Present OS [facility] Microscopic observation Other stain Nom (Unsp spec) Positive [facility] CHEST TUBE PLACEMENTon 10-02 CHEST TUBE PLACEMENT EXAM: IR CHEST TUBE PLACEMENT, 10/01/2024 17:21 PM CLINICAL INDICATIONS: 74-year-old man with a history of empyema and loculated left pleural effusion presenting for drainage. Operators: Beatriz Brown MD (attending), Rosales Rodriguez D.O. (resident) Consent: Following discussion of the risks, benefits and alternatives of the procedure, written informed consent was obtained. Sedation: Local anesthesia with 2 mL 2% lidocaine COMPARISON: Chest radiograph October 01, 2024, outside CT chest September 28, 2024 TIME OUT: Prior to the procedure a time out was performed in the presence of the patient and all personnel involved in this case. The patient identity, procedure type, procedure side/site, and allergies were verified. TECHNIQUE: PROCEDURAL TECHNIQUE AND FINDINGS: Position: The patient was placed on the CT table in near-prone position on the procedure table, and initial axial images through the region of interest in the chest were obtained. A radiopaque marker was then placed, and the patient rescanned to confirm position. The site was prepared and draped using maximum sterile barrier technique. This consisted of cap, mask, hand hygiene, sterile gown, sterile gloves, cutaneous antisepsis, and draped in a sterile fashion. Procedure/Findings: Images of the target were saved to the image archive system. Initial images were obtained demonstrating a heterogenous air and fluid collection in the left pleural space with suspected loculations. Local anesthesia was provided with lidocaine. A 5Fr x 7 cm Cook [employer] centesis needle was advanced using CT guidance into the collection, and a small amount of fluid was aspirated. An Amplatz wire was advanced through the Yueh centesis needle, which was then removed. The tract was dilated and then a 12-Mongolian M-drain was placed over the wire. A 10 mL sample of purulent fluid was sent for culture. The catheter was sutured to the skin and attached to Pleur-evac. A postprocedure image was obtained confirming appropriate positioning. Post-Procedure: The patient tolerated the procedure well, with no immediate complications. A total of 100 mL purulent fluid was drained while in the room. Complications: The patient left the department with no immediate complications. IMPRESSION: Status post technically challenging CT guided left chest tube placement, with a 12-Mongolian M-drain attached to Pleur-evac. I personally viewed and interpreted these images and I have reviewed and approved this report. Table formatting from the original result was not included. Meds Meds Time Date Event Details User 3:55 PM 10/01/24 Timeout: Sign-in Signed by Nacho Valencia RN at 10/01/2024 3:56 PM CG 4:46 PM 10/01/24 Timeout: TimeOut Signed by Nacho Valencia RN at 10/01/2024 4:47 PM CG 5:10 PM 10/01/24 Lidocaine 2 % injection Ordered and Given 2 mL Given Rate: 0 Route: Other DM 5:19 PM 10/01/24 Timeout: Sign-out Signed by Deuce Montoya RN at 10/01/2024 5:19 PM EP Physician Physician Time Date Event Details User 3:55 PM 10/01/24 Timeout: Sign-in Signed by Nacho Valencia RN at 10/01/2024 3:56 PM CG 4:46 PM 10/01/24 Timeout: TimeOut Signed by Nacho Valencia RN at 10/01/2024 4:47 PM CG 5:11 PM 10/01/24 Beatriz Brown MD - Departed Role: Primary Service: Interventional Radiology (Panel 1) 5:19 PM 10/01/24 Timeout: Sign-out Signed by Deuce Montoya RN at 10/01/2024 5:19 PM EP Normal [facility] RADIOLOGY RADIOLOGY [facility] CREATININEon 10-02-2024 Creatinine [Mass/Vol] 0.71 mg/dL 0.70 - 1.30 mg/dL [facility] eGFR, CKD-EPI, Male - PINF [facility] Interpretation and review of laboratory results Normal [facility] Creatinine [Mass/Vol] 0.71 mg/dL Normal 0.70-1.30 [facility] Comment on above: Performed By: #### C A, IPB, MGO, CHM7, HFP, OSMO #### [facility] (DEFAULT) [address] [place] [address] 71829 eGFR, CKD-EPI, Male > Normal >=60 [facility] Comment on above: Result Comment: Repo rted eGFR is based on the CKD-EPI 2020 equation using creatinine, age, and sex. Performed By: #### C A, IPB, MGO, CHM7, HFP, OSMO #### [facility] (DEFAULT) [address] [place] [address] [phone] GENERAL PROCEDUREon 10-03-19 Radiology Study observation (narrative) [facility] HISTOPLASMA AND BLASTOMYCES ANTIGEN, ENZYME IMMUNOASSAY, SERMon 10-02-2024 Histoplasma/Blastomyc es Ag Result Not detected Not Detected [facility] Histoplasma/Blastomyc es Ag Value Not detected ng/mL [facility] Portable XR Chest Viewson RADIOLOGY RADIOLOGY [facility] Radiology Study observation (narrative) [facility] RADIOLOGY RADIOLOGY [facility] Radiology Study observation (narrative) [facility] RADIOLOGY RADIOLOGY [facility] Radiology Study observation (narrative) [facility] Portable XR Chest ViewsOrder ed By: Agus Montez on 10-02-2024 [facility] Work Phone: Portable XR Chest ViewsOrder ed By: Troy Garcia on 10-02-2024 [facility] Work Phone: XR CHEST 1 VIEW PORTABLEon 0 10-02-2024 XR CHEST 1 VIEW PORTABLE EXAM: XR CHEST 1 VIEW PORTABLE, 10/02/2024 17:08 PM COMPARISON: CLINICAL INDICATIONS: post pull cxr RELEVANT CLINICAL HISTORY: FINDINGS: (Right-sided chest tube in stable position. Interval removal of a larger more superior chest tube. Persistent small left apical pneumothorax, 9 mm. Persistent opacification in the left mid and lower lung. Right lung clear IMPRESSION: Removal of superior, larger bore chest tube. Persistent 9 mm left apical pneumothorax Normal [facility] XR CHEST 1 VIEW PORTABLE EXAM: XR CHEST 1 VIEW PORTABLE, 10/02/2024 14:57 PM COMPARISON: October 02 at 3:30 AM CLINICAL INDICATIONS: worsening chest pain RELEVANT CLINICAL HISTORY: FINDINGS: (Right-sided chest tube. Monitor leads overlie chest. Left apical pneumothorax approximately 10.6 mm, similar to prior study. Right lung clear. Larger bore chest tube in the left chest sidewall does not appear to extend to the pleural cavity this is noted on prior study persistent opacification in the left mid and lower lung corresponds to consolidation and effusion IMPRESSION: Stable left apical pneumothorax, consolidation effusion in the left mid and lower lung. Larger bore left-sided chest tube does not extend into the pleural cavity depicted CT of October 01, 2024 Normal [facility] XR CHEST 1 VIEW PORTABLE EXAM: XR CHEST 1 VIEW PORTABLE, 10/02/2024 03:31 AM CLINICAL INDICATIONS: r/o ptx RELEVANT CLINICAL HISTORY: COMPARISON: XR CHEST 1 VIEW PORTABLE October 01, 2024, CT CHEST (OUTSIDE IMAGE) September 28, 2024 FINDINGS: Unchanged left chest tube with side-port lateral to the pleural space. New left pigtail chest tube. Unchanged to slightly increased left apical pneumothorax Left pleural effusion with underlying dense opacity in the left lung, better assessed on recent CT scanning but unchanged. Clear right lung Heart size partially obscured by the opacity on the left. No pulmonary edema Degenerative change of the thoracic spine. IMPRESSION: 1. New left pigtail chest tube with stable to slightly increased left apical pneumothorax. 2. Other findings unchanged Normal [facility] BACTERIAL CULTURE AND DIRECT SMEAR, LESION, TISSUE, DEVICEon 10-01-2024 Bacteria identified Cx Nom (Unsp spec) Normal [facility] Comment on above: Result Comment: Grow th 34 Moderate Growth Streptococcus intermedius Susceptibilities not routinely performed. Member of Streptococcus anginosus group Performed By: #### Diana GREGG, XM #### [facility] (DEFAULT) [address] [place] [address] [phone] Microscopic observation Gram stain Nom (Unsp spec) Normal [facility] Comment on above: Result Comment: Neut rophils, Heavy Red Blood Cells Present Gram Positive Cocci Intracellular Organisms Performed By: #### Diana GREGG, XM #### [facility] (DEFAULT) [address] [place] [address] 20164 CHEST TUBE PLACEMENTon 10-01 Radiology Study observation (narrative) [facility] Cardiac echo study Procedure on 10-01-2024 Ao ASC index 1.67 cm/m2 [facility] Ao peak rupa 1.16 m/s [facility] Ao SOV index 1.76 cm/m2 [facility] Ao STJ index 1.34 cm/m2 [facility] Ascending aorta 3.24 cm [facility] AV LVOT peak gradient 4 mmHg [facility] AV peak gradient 5 mmHG [facility]ocity [facility] RITESH (continuity Vmax) 3.06 cm2 [facility] RITESH index (continuity Vmax) 1.58 m/s [facility] Avg e' pk rupa 0.10 m/s [facility] Avg E/e' ratio 8.43 [facility] Body surface area Derived from formula 1.94 m2 [facility] BP EF 63 % [facility] DI (Vmax) 0.83 [facility] E wave decelartion time 174.24 msec [facility] e' lateral pk rupa 0.0828 m/s [facility] e' lateral pk rupa 0.08 m/s [facility] e' septal pk rupa 0.1080 m/s [facility] e' septal pk rupa 0.11 m/s [facility] E/e' lateral ratio 9.54 [facility] E/e' septal ratio 7.31 [facility] EF SP 2CH 61 [facility] EF SP 4CH 64 [facility] EST RAP 5 mmHg [facility] EST RVSP 29 mmHg [facility] FS 33 % [facility] IVC ostium 1.45 cm [facility] IVS 1.02 cm [facility] LA ESV BP (MOD) 118 mL [facility] LA ESV BP (MOD) index 61 mL/m2 [facility] LA ESV SP 2CH (MOD) 102 mL [facility] LA ESV SP 4CH (MOD) 134 mL [facility] LV EDV BP 64 mL [facility] LV EDV SP 2CH 61 mL [facility] LV EDV SP 4CH 66 mL [facility] LV ESV BP 24 mL [facility] LV ESV SP 2CH 24 mL [facility] LV ESV SP 4CH 24 mL [facility] LV mass 140.83 g [facility] LV Mass Index 72.6 g/m2 [facility] LV RWT 0.39 [facility] LV stroke volume BP (ml) 40 mL [facility] LV stroke volume index BP 20.62 mL/m2 [facility]IDD 4.46 [facility]01 [facility] LVOT area 3.70 cm2 [facility] LV[facility] diameter 2.17 cm [facility] LVOT peak rupa 0.96 m/s [facility] MV pk E rupa 0.79 m/s [facility] BIPLANE SYSTOLIC VOLUME INDEX 12.37 mL/m2 [facility] BP DIASTOLIC VOLUME INDEX 32.99 mL/m2 [facility] PV peak gradient 3 mmHg [facility] PV PK RUPA 0.85 m/s [facility] PW 0.88 cm [facility] RA vol index 4CH (MOD) 21.13 mL/m2 [facility] Right atrium volume 4 chamber method of disks 41 mL [facility] systolic 10.57 cm2 [facility] RV basal diam 4.25 cm [facility] RV Fractional area change 58.0 % [facility] RV long diam 6.59 cm [facility] RV mid diam 3.46 cm [facility] RV S' 10.04 cm/s [facility] Sinus 3.42 cm [facility] STJ 2.59 cm [facility] TAPSE 1.09 cm [facility] TR pk grad 24 mmHg [facility] TR pk rupa 2.44 m/s [facility] TV rest pulmonary artery pressure 28.81 mmHg [facility] UMOUT [facility] Radiology Study observation (narrative) [facility] ECHOCARDIOGRAMon 10-01-2024 Echocardiography Cardiac rhythm is irregular Left ventricular size, regional wall motion and global systolic function are normal. Ejection fraction 60-65% Left atrium measures severely enlarged in size Right ventricle is normal in size and function. Estimated right ventricular/pulmonary artery systolic pressure, 29mmHg Right atrium measures normal in size Valve structures are consistent with age. No valve dysfunction Further study details described below Table formatting from the original result was not included. Images from the original result were not included. [facility] Facility [facility] Patient Information Patient Name Maxx Forde Legal Sex Male Indication for Exam Priority: Routine Dx: PAF (paroxysmal atrial fibrillation) [I48.0 (ICD-10-CM)] Order Question Reason for Exam recurrent a fib , check structure abn Interpretation Summary Result History is available. Cardiac rhythm is irregular Left ventricular size, regional wall motion and global systolic function are normal. Ejection fraction 60-65% Left atrium measures severely enlarged in size Right ventricle is normal in size and function. Estimated right ventricular/pulmonary artery systolic pressure, 29mmHg Right atrium measures normal in size Valve structures are consistent with age. No valve dysfunction Further study details described below Findings Left Ventricle Chamber size is normal. Normal wall thickness. Normal global systolic function. Regional wall motion is normal. Ejection fraction by modified Jenkins's rule is normal (60 - 65%). Supraventricular dysrhythmias hamper diastology evaluation. Right Ventricle Chamber size is normal. Systolic function is normal. Estimated right ventricular systolic pressure is 29 mmHg. Left Atrium Chamber size is severely enlarged. Right Atrium Chamber size is normal. Septum The atrial septum is normal. Mitral Valve Non-specific leaflet thickening. Leaflet mobility is normal. Mild annular calcification. Trace regurgitation. No valve stenosis. Aortic Valve Trileaflet valve. Leaflet calcification. Cusp sclerosis visualized. Leaflet mobility is normal. No regurgitation. No stenosis. Tricuspid Valve Normal leaflets. Leaflet mobility is normal. Trace regurgitation. No stenosis. Estimated right ventricular systolic pressure is 29 mmHg. Pulmonic Valve Normal structure. Trace regurgitation. No stenosis. Aorta No dilation to extent seen. SOV: 3.42 cm. STJ: 2.59 cm. Ascendin.24 cm. Pericardium Small pericardial effusion adjacent to the right ventricle. There is no evidence of tamponade. IVC/SVC The inferior vena cava is normal in size. The inferior vena cava structure is normal. Reading Providers Reading Role Read Date Gasper Knutson DO [facility] [place] 10/01/2024 Left Heart Measurements LV - Systole LVIDD 4.46 cm IVS 1.02 cm LVIDS 3.01 cm PW 0.88 cm LV RWT 0.39 LV Mass Index 72.6 g/m2 LV EDV BP 64 mL LV ESV BP 24 mL BP EF 63 % LV stroke volume BP (ml) 40 mL LV stroke volume index BP 20.62 mL/m2 LV - Diastole MV pk E rupa 0.79 m/s e' septal pk rupa 0.11 m/s e' lateral pk rupa 0.08 m/s Avg e' pk rupa 0.1 m/s E/e' septal ratio 7.31 E/e' lateral ratio 9.54 Avg E/e' ratio 8.43 LV - HCM AV LVOT peak gradient 4 mmHg Left Atrium LA ESV SP 4CH (MOD) 134 mL LA ESV SP 2CH (MOD) 102 mL LA ESV BP (MOD) index 61 mL/m2 Right Heart Measurements RV - 2D RV basal diam 4.25 cm RV mid diam 3.46 cm RV long diam 6.59 cm RV Area diastolic 25.17 cm2 RV Area systolic 10.57 cm2 RV Fractional area change 58 % RV - Doppler TAPSE 1.09 cm RV S' 10.04 cm/s Right Atrium RA vol index 4CH (MOD) 21.13 mL/m2 EST RAP 5 mmHg Great Vessels Aortic Root - End Diastolic Sinus 3.42 cm STJ 2.59 cm Ascending aorta 3.24 cm Inferior Vena Cava IVC ostium 1.45 cm Doppler Measurements - Aortic Valve Stenosis LVOT diameter 2.17 cm LVOT area 3.7 cm2 LVOT peak rupa 0.96 m/s Ao peak rupa 1.16 m/s AV peak gradient 5 mmHG DI (Vmax) 0.83 RITESH (continuity Vmax) 3.06 cm2 RITESH index (continuity Vmax) 1.58 m/s Doppler Measurements - Mitral Valve Stenosis MV pk E rupa 0.79 m/s TV rest pulmonary artery pressure 28.81 mmHg PISA-MS MV pk E rupa 0.79 m/s Doppler Measurements - Tricuspid Valve Stenosis IVC ostium 1.45 cm Regurgitation TR pk rupa 2.44 m/s TR pk grad 24 mmHg EST RAP 5 mmHg EST RVSP 29 mmHg Doppler Measurements - Pulmonic Valve Stenosis PV PK RUPA 0.85 m/s PV peak gradient 3 mmHg Vitals Height Weight BSA (Calculated - sq m) BP Pulse 1.803 m (5' 10.98) 74.7 kg (164 lb 10.9 oz) 1.94 m2 108/56 82 Performing Staff Aundrea Dinh (more content not included)... Normal [facility] GENERAL PROCEDUREon 10-02-19 [facility] HISTOPLASMA ANTIGEN,URINEOrd ered By: Vickie Díaz on 10-01-2024 H. capsulatum Ag IA Ql (U) Not detected Not Detected [facility] Interpretation and review of laboratory results Normal [facility] Portable XR Chest Viewson RADIOLOGY RADIOLOGY [facility] Radiology Study observation (narrative) [facility] Portable XR Chest ViewsOrder ed By: Nacho Moss on 10-01-2024 [facility] Work Phone: VANCOMYCIN LEVEL, TROUGH (UT E DRUG LEVEL)on 10-01-2024 Interpretation and review of laboratory results Abnormal [facility] Vancomycin trough [Mass/Vol] 9.0 ug/mL Low [facility] Vancomycin, Trough 9.0 mcg/mL Low Therapeut ic Range: 10.0-20.0 mcg/mL [facility] Comment on above: Order Comment: Pleas e draw level on 10/01/24 at 0500, 1 hour PRIOR to next dose. Please hold next dose if trough > 20. Performed By: #### C A, IPB, MGO, CHM7, HFP, OSMO #### [facility] (DEFAULT) [address] [place], [place] [id number] XR CHEST 1 VIEW PORTABLEon 0 10-01-2024 XR CHEST 1 VIEW PORTABLE EXAM: XR CHEST 1 VIEW PORTABLE, 10/01/2024 04:15 AM COMPARISON: XR CHEST 1 VIEW PORTABLE September 30, 2024 CLINICAL INDICATIONS: PTX r/o FINDINGS: (Adequate technique) Implanted Devices: Left-sided chest tube with sideholes in the subcutaneous tissues, similar to prior exam. Thorax: Mildly decreased size of the loculated left-sided pleural effusion with mildly improved aeration of the left lung. There is a small right apical pneumothorax appreciated on the current study. Right lung is clear. Subcutaneous air noted in the left lateral chest wall. IMPRESSION: The left-sided chest tube appears malpositioned, with sideholes located within the subcutaneous tissues of the left chest wall. Slight improvement of left-sided pleural effusion, with small left apical pneumothorax (hydropneumothorax). I personally viewed and interpreted these images and I have reviewed and approved this report. Normal [facility] ANAEROBE CULTUREon Bacteria identified Cx Nom (Unsp spec) [facility] Comment on above: Order Comment: Colle ct fluids or tissues in a sterile container. If collecting swabs, must be collected in a Port-A-Cul tube. Result Comment: Grow th [address] Fusobacterium nucleatum Susceptibility testing is not performed. This organism is generally treated with ampicillin/sulbactam, piperacillin/tazobactam, or metronidazole. If additional guidance is needed, please contact infectious diseases. [phone] Moderate [address] Parvimonas micra Susceptibility testing is not performed. This organism is generally treated with penicillin. If additional guidance is needed, please contact infectious diseases. Performed By: #### H [facility] #### [facility] (DEFAULT) [address] [address] Result Comment: Grow th 34 Moderate Growth Streptococcus intermedius Susceptibilities not routinely performed. Member of Streptococcus anginosus group Performed By: #### A MARYSOL XM #### [facility] (DEFAULT) [address] [address] Order Comment: Fresh tissue or body fluid should be collected. Recovery of mycobacteria from swabs is very low. Only submit a swab specimen if tissue biopsy or fluid aspiration is not possible. Separate ESwab and/or punch biopsy collection is required for Mycobacterial culture. Result Comment: See scanned document. Testing performed by [facility] [address] [place] [address] BACTERIAL CULTURE AND DIRECT SMEAR, LESION, TISSUE, DEVICEon 09-30-2024 Microscopic observation Gram stain Nom (Unsp spec) [facility] Comment on above: Result Comment: Neut rophils, Heavy Red Blood Cells Present Gram Positive Cocci Intracellular Organisms Performed By: #### A BORH, XM #### [facility] (DEFAULT) [address] [place] [address] CBC,PLATELETSOrdered By: Higinio shultz Jah on 09-30-2024 Erythrocyte distribution width (RBC) [Ratio] 13.5 % 10.9 - 14.3 % [facility] Hematocrit (Bld) [Volume fraction] 33.1 % Low 39.6 - 48.8 % [facility] Hemoglobin (Bld) [Mass/Vol] 11.1 g/dL Low 13.4 - 16.8 g/dL [facility] Interpretation and review of laboratory results Abnormal [facility] MCH (RBC) [Entitic mass] 29.1 pg 26.1 - 33.3 pg [facility] MCHC (RBC) [Mass/Vol] 33.5 g/dL 31.9 - 36.5 g/dL [facility] MCV (RBC) [Entitic vol] 86.6 fL 79.0 - 94.5 fL [facility] Platelet mean volume (Bld) [Entitic vol] 8.9 fL 8.7 - 12.3 fL [facility] Platelets (Bld) [#/Vol] 412 10*3/uL High 146 - 337 K/uL [facility] RBC (Bld) [#/Vol] 3.82 10*6/uL Low [facility] WBC (Bld) [#/Vol] 16.18 10*3/uL High 3.73 - 10 .10 K/uL [facility] CBC,PLATELETSon 09-30-2024 Hematocrit (Bld) [Volume fraction] 33.1 % Low 39.6-48.8 [facility] Comment on above: Performed By: #### C Diana, IPB, MGO, CHM7, HFP, OSMO #### [facility] (DEFAULT) [address] [place] [address] Hemoglobin (Bld) [Mass/Vol] 11.1 g/dL Low 13.4-16.8 [facility] Comment on above: Performed By: #### C A, IPB, MGO, CHM7, HFP, OSMO #### [facility] (DEFAULT) [address] [place] [address] MCV (RBC) [Entitic vol] 86.6 fL Normal 79.0-94.5 [facility] Comment on above: Performed By: #### C A, IPB, MGO, CHM7, HFP, OSMO #### [facility] (DEFAULT) [address] [place] [address] Mean Cell Hgb 29.1 pg Normal 26.1-33.3 [facility] Comment on above: Performed By: #### C A, IPB, MGO, CHM7, HFP, OSMO #### [facility] (DEFAULT) [address] [place] [address] Mean Cell Hgb Conc 33.5 g/dL Normal 31.9-36.5 [facility] Comment on above: Performed By: #### C A, IPB, MGO, CHM7, HFP, OSMO #### [facility] (DEFAULT) [address] [place] [address] Platelet mean volume (Bld) [Entitic vol] 8.9 fL Normal 8.7-12.3 [facility] Comment on above: Performed By: #### C A, IPB, MGO, CHM7, HFP, OSMO #### [facility] (DEFAULT) [address] [place] [address] Platelets (Bld) [#/Vol] 412 10*3/uL High 146-337 [facility] Comment on above: Performed By: #### C A, IPB, MGO, CHM7, HFP, OSMO #### [facility] (DEFAULT) [address] [place] [address] RBC (Bld) [#/Vol] 3.82 10*6/uL Low 4.38-5.83 [facility] Comment on above: Performed By: #### C A, IPB, MGO, CHM7, HFP, OSMO #### [facility] (DEFAULT) [address] [place] [address] RBC Distribution 13.5 % Normal 10.9-14.3 [facility] Comment on above: Performed By: #### C A, IPB, MGO, CHM7, HFP, OSMO #### [facility] (DEFAULT) [address] [place] [address] WBC (Bld) [#/Vol] 16.18 10*3/uL High 3.73-10.10 [facility] Comment on above: Performed By: #### C A, IPB, MGO, CHM7, HFP, OSMO #### [facility] (DEFAULT) [address] [place] [address] EXTRA MICROon 09-30-2024 [facility] FUNGUS CULTUREon 09-30-2024 Bacteria identified Cx Nom (Unsp spec) NO GROWTH DAY 28 OF 28 Normal [facility] Comment on above: Performed By: #### A MARYSOL, XM #### [facility] (DEFAULT) [address] [place] [address] HISTOPLASMA AND BLASTOMYCES ANTIGEN, ENZYME IMMUNOASSAY, SERMon 09-30-2024 Histoplasma/Blastomyc es Ag Result Not detected Normal Not Detected [facility] Comment on above: Result Comment: No a ntigen from Histoplasma or Blastomyces detected. False negative results may occur depending on extent of disease, and/or site of infection. Repeat testing on a new specimen if clinically indicated. Performed By: #### C A, IPB, MGO, CHM7, HFP, OSMO #### [facility] (DEFAULT) [address] [place] [address] Histoplasma/Blastomyc es Ag Value Not detected Normal [facility] Comment on above: Result Comment: ADDITIONAL INFORMATION This test was developed and its performance characteristics determined by [facility] in a manner consistent with CLIA requirements. This test has not been cleared or approved by the U.S. Food and Drug Administration. Test Performed by: [facility] [address] [place] [address] [employer] Driver: Kianna Magaña Ph.D.; CLIA# [id number] Performed By: #### C A, IPB, MGO, CHM7, HFP, OSMO #### [facility] (DEFAULT) [address] [address] L. pneumophila 1 Ag IA Ql (U )on 09-30-2024 Interpretation and review of laboratory results Normal [facility] [id number] 09-30-2024 [facility] Mis. COMMENT Normal . [facility] Comment on above: Order Comment: [id number] TRIGLYCERIDES,FLUID (THORA) Result Comment: Test Ordered: [id number] Triglycerides, Fluid Triglycerides, Fluid 37 mg/dL CB Reference Range: Not Estab. The reference interval(s) and other method performance specifications have not been established for this body fluid. The test result must be integrated into the clinical context for interpretation. Performed at: - [facility] [address] [id number] [employer]: Latrell Paiz PhD, Phone: [phone] Performed By: #### L [id number] #### [facility] [address] [place] [address]. [place], [address] [facility] AGon 09-12 L. pneumophila 1 Ag IA Ql (U) Negative Negative [facility] Non-gynecologic cytology rep ortOrdered By: Shanelle Lyman on 09-30-2024 Study report [facility] Portable XR Chest Viewson RADIOLOGY RADIOLOGY [facility] Radiology Study observation (narrative) [facility] RADIOLOGY RADIOLOGY [facility] Radiology Study observation (narrative) [facility] Portable XR Chest ViewsOrder ed By: Yamilet Wooten on 09-30-2024 [facility] Work Phone: SODIUMon 09-30-2024 Interpretation and review of laboratory results Abnormal [facility] Sodium [Moles/Vol] 134 mmol/L Low 135 - 145 mmol/L [facility] Sodium [Moles/Vol] 134 mmol/L Low 135-145 [facility] Comment on above: Performed By: #### C A, IPB, MGO, CHM7, HFP, OSMO #### [facility] (DEFAULT) [address] [place] [address] XR CHEST 1 VIEW PORTABLEon 0 09-30-2024 XR CHEST 1 VIEW PORTABLE EXAM: XR CHEST 1 VIEW PORTABLE, 09/30/2024 13:07 PM COMPARISON: XR CHEST 1 VIEW PORTABLE September 30, 2024 CLINICAL INDICATIONS: s/p L chest tube placement, hx of empyema and adhesed lung RELEVANT CLINICAL HISTORY: FINDINGS: (Adequate technique) Implanted Devices: New chest tube partially visualized at left lower to mid lateral aspect of hemithorax, the sidehole overlapped seventh rib. Thorax: Slightly decreased the size of left large loculated pleural effusion with new chest tube placement. Right lung is clear. Unchanged cardiomediastinal silhouette. No IMPRESSION: Slightly decreased size of the left loculated pleural effusion with new chest tube placement. The sidehole of left chest tube overlapping at the seventh rib, I suggest adjustment if possible. I, Serenity Sal MD have discussed the critical finding/s of the position of the left chest tube with Chuck Walk on 09/30/2024 1:37 PM. I personally viewed and interpreted these images and I have reviewed and approved this report. Normal [facility] XR CHEST 1 VIEW PORTABLE EXAM: XR CHEST 1 VIEW PORTABLE, 09/30/2024 04:12 AM COMPARISON: CT CHEST (OUTSIDE IMAGE) September 28, 2024, XR CHEST (OUTSIDE IMAGE) September 19, 2024 CLINICAL INDICATIONS: chest tube in place RELEVANT CLINICAL HISTORY: FINDINGS: (Adequate technique) Implanted Devices: No visualized chest tube. Thorax: Left large loculated pleural effusion, obscures entire left lung and left side of cardiomediastinal silhouette. Right lung is clear. No pneumothorax. Degenerative changes of the thoracic spine. IMPRESSION: new left large loculated pleural effusion. No chest tube identified. I personally viewed and interpreted these images and I have reviewed and approved this report. Normal [facility] CALCIUMon 09-29-2024 Calcium [Mass/Vol] 8.2 mg/dL Low 8.6 - 10. 5 mg/dL [facility] Calcium [Mass/Vol] 8.2 mg/dL Low 8.6-10.5 [facility] Comment on above: Performed By: #### C A, IPB, MGO, CHM7, HFP, OSMO #### [facility] (DEFAULT) [address] [place] [address] CBC AND ELECTRONIC DIFFon Basophils (Bld) [#/Vol] K/uL 0.00 - 0.09 K/uL [facility] Basophils/100 WBC (Bld) 0.2 % [facility] Differential cell count method Nom (Bld) Electronic Differential [facility] Eosinophils (Bld) [#/Vol] K/uL 0.00 - 0.48 K/uL [facility] Eosinophils/100 WBC (Bld) 0.0 % [facility] Erythrocyte distribution width (RBC) [Ratio] 13.4 % 10.9 - 14.3 % [facility] Hematocrit (Bld) [Volume fraction] 34.8 % Low 39.6 - 48.8 % [facility] Hemoglobin (Bld) [Mass/Vol] 12.1 g/dL Low 13.4 - 16.8 g/dL [facility] Immature granulocytes (Bld) [#/Vol] 0.42 10*3/uL High NINF - 0.07 K/uL [facility] Immature granulocytes/100 WBC (Bld) 2.5 % [facility] Interpretation and review of laboratory results Abnormal [facility] Lymphocytes (Bld) [#/Vol] 0.78 10*3/uL Low 0.83 - 3.57 K/uL [facility] Lymphocytes/100 WBC (Bld) 4.7 % [facility] MCH (RBC) [Entitic mass] 29.2 pg 26.1 - 33.3 pg [facility] MCHC (RBC) [Mass/Vol] 34.8 g/dL 31.9 - 36.5 g/dL [facility] MCV (RBC) [Entitic vol] 84.1 fL 79.0 - 94.5 fL [facility] Monocytes (Bld) [#/Vol] 0.94 10*3/uL High 0.24 - 0.93 K/uL [facility] Monocytes/100 WBC (Bld) 5.6 % [facility] Neutrophils (Bld) [#/Vol] 14.57 10*3/uL High 1.57 - 6.19 K/uL [facility] Nucleated RBC/100 WBC (Bld) [Ratio] 0.0 % [facility] Platelet mean volume (Bld) [Entitic vol] 9.0 fL 8.7 - 12.3 fL [facility] Platelets (Bld) [#/Vol] 450 10*3/uL High 146 - 337 K/uL [facility] RBC (Bld) [#/Vol] 4.14 10*6/uL Low [facility] Segmented neutrophils/100 WBC (Bld) 87.0 % [facility] WBC (Bld) [#/Vol] 16.74 10*3/uL High 3.73 - 10 .10 K/uL [facility] Abs Baso Auto < Normal 0.00-0.09 [facility] Comment on above: Performed By: #### C A, IPB, MGO, CHM7, HFP, OSMO #### [facility] (DEFAULT) [address] [place] [address] Abs Eos Auto < Normal 0.00-0.48 [facility] Comment on above: Performed By: #### C A, IPB, MGO, CHM7, HFP, OSMO #### [facility] (DEFAULT) [address] [place] [address] Basophils/100 WBC (Bld) 0.2 % Normal [facility] Comment on above: Performed By: #### C A, IPB, MGO, CHM7, HFP, OSMO #### [facility] (DEFAULT) [address] [place] [address] DIFF STATUS Electronic Differential Normal [facility] Comment on above: Performed By: #### C A, IPB, MGO, CHM7, HFP, OSMO #### [facility] (DEFAULT) [address] [place] [address] Eosinophils/100 WBC (Bld) 0.0 % Normal [facility] Comment on above: Performed By: #### C A, IPB, MGO, CHM7, HFP, OSMO #### [facility] (DEFAULT) [address] [place] [address] Hematocrit (Bld) [Volume fraction] 34.8 % Low 39.6-48.8 [facility] Comment on above: Performed By: #### C A, IPB, MGO, CHM7, HFP, OSMO #### [facility] (DEFAULT) [address] [place] [address] Hemoglobin (Bld) [Mass/Vol] 12.1 g/dL Low 13.4-16.8 [facility] Comment on above: Performed By: #### C A, IPB, MGO, CHM7, HFP, OSMO #### [facility] (DEFAULT) [address] [place] [address] Immature Grans % 2.5 % Normal [facility] Comment on above: Performed By: #### C A, IPB, MGO, CHM7, HFP, OSMO #### [facility] (DEFAULT) [address] [place] [address] 38344 Immature Grans Absolute 0.42 K/uL High <=0.07 [facility] Comment on above: Performed By: #### C A, IPB, MGO, CHM7, HFP, OSMO #### [facility] (DEFAULT) [address] [place] [address] 17689 Lymphocytes (Bld) [#/Vol] 0.78 10*3/uL Low 0.83-3.57 [facility] Comment on above: Performed By: #### C A, IPB, MGO, CHM7, HFP, OSMO #### [facility] (DEFAULT) [address] [place] [address] 47792 Lymphocytes/100 WBC (Bld) 4.7 % Normal [facility] Comment on above: Performed By: #### C A, IPB, MGO, CHM7, HFP, OSMO #### [facility] (DEFAULT) [address] [place] [address] 58684 MCV (RBC) [Entitic vol] 84.1 fL Normal 79.0-94.5 [facility] Comment on above: Performed By: #### C A, IPB, MGO, CHM7, HFP, OSMO #### [facility] (DEFAULT) [address] [place] [address] 99650 Mean Cell Hgb 29.2 pg Normal 26.1-33.3 [facility] Comment on above: Performed By: #### C A, IPB, MGO, CHM7, HFP, OSMO #### [facility] (DEFAULT) [address] [place] [address] 52168 Mean Cell Hgb Conc 34.8 g/dL Normal 31.9-36.5 [facility] Comment on above: Performed By: #### C A, IPB, MGO, CHM7, HFP, OSMO #### [facility] (DEFAULT) [address] [place] [address] 49085 Monocytes (Bld) [#/Vol] 0.94 10*3/uL High 0.24-0.93 [facility] Comment on above: Performed By: #### C A, IPB, MGO, CHM7, HFP, OSMO #### [facility] (DEFAULT) [address] [place] [address] 03441 Monocytes/100 WBC (Bld) 5.6 % Normal [facility] Comment on above: Performed By: #### C A, IPB, MGO, CHM7, HFP, OSMO #### [facility] (DEFAULT) [address] [place] [address] 20514 Nucleated RBC 0.0 /100 WBC Normal <=0.2 [facility] Comment on above: Performed By: #### C A, IPB, MGO, CHM7, HFP, OSMO #### [facility] (DEFAULT) [address] [place] [address] 09599 Platelet mean volume (Bld) [Entitic vol] 9.0 fL Normal 8.7-12.3 [facility] Comment on above: Performed By: #### C A, IPB, MGO, CHM7, HFP, OSMO #### [facility] (DEFAULT) [address] [place] [address] 03840 Platelets (Bld) [#/Vol] 450 10*3/uL High 146-337 [facility] Comment on above: Performed By: #### C A, IPB, MGO, CHM7, HFP, OSMO #### [facility] (DEFAULT) [address] [place] [address] 59765 RBC (Bld) [#/Vol] 4.14 10*6/uL Low 4.38-5.83 [facility] Comment on above: Performed By: #### C A, IPB, MGO, CHM7, HFP, OSMO #### [facility] (DEFAULT) [address] [place] [address] 74852 RBC Distribution 13.4 % Normal 10.9-14.3 [facility] Comment on above: Performed By: #### C A, IPB, MGO, CHM7, HFP, OSMO #### [facility] (DEFAULT) [address] [place] [address] 11801 Segs + Bands Auto 87.0 % Normal [facility] Comment on above: Performed By: #### C A, IPB, MGO, CHM7, HFP, OSMO #### [facility] (DEFAULT) [address] [place] [address] 12514 Segs + Bands,Absolute Auto 14.57 K/uL High 1.57-6.19 [facility] Comment on above: Performed By: #### C A, IPB, MGO, CHM7, HFP, OSMO #### [facility] (DEFAULT) [address] [place] [address] 09595 WBC (Bld) [#/Vol] 16.74 10*3/uL High 3.73-10.10 [facility] Comment on above: Performed By: #### C A, IPB, MGO, CHM7, HFP, OSMO #### [facility] (DEFAULT) [address] [place] [address] 62979 CHEM 7 (LYTES,BUN,CREA,GLUC) on 09-29-2024 Anion gap [Moles/Vol] 15 mmol/L 7 - 17 mmol/L [facility] Chloride [Moles/Vol] 98 mmol/L 98 - 10 8 mmol/L [facility] CO2 [Moles/Vol] 23 mmol/L 21 - 31 mmol/L [facility] Creatinine [Mass/Vol] 0.87 mg/dL 0.70 - 1.30 mg/dL [facility] eGFR, CKD-EPI, Male - PINF [facility] Glucose [Mass/Vol] 131 mg/dL 70 - 179 mg/dL [facility] Osmolality Calc [Osmolality] 304 [facility] Potassium [Moles/Vol] 3.4 mmol/L Low 3.5 - 5.0 mmol/L [facility] Sodium [Moles/Vol] 133 mmol/L Low 135 - 145 mmol/L [facility] Urea nitrogen [Mass/Vol] 77 mg/dL High 7 - 25 mg/dL [facility] Urea nitrogen/Creatinine [Mass ratio] 89 mg/mg [facility] Anion gap [Moles/Vol] 15 mmol/L Normal 7-17 [facility] Comment on above: Performed By: #### C A, IPB, MGO, CHM7, HFP, OSMO #### [facility] (DEFAULT) [address] [place] [address] 54381 Chloride [Moles/Vol] 98 mmol/L Normal 98-108 [facility] Comment on above: Performed By: #### C A, IPB, MGO, CHM7, HFP, OSMO #### [facility] (DEFAULT) [address] [place] [address] 55696 CO2 [Moles/Vol] 23 mmol/L Normal 21-31 [facility] Comment on above: Performed By: #### C A, IPB, MGO, CHM7, HFP, OSMO #### [facility] (DEFAULT) [address] [place] [address] 12733 Creatinine [Mass/Vol] 0.87 mg/dL Normal 0.70-1.30 [facility] Comment on above: Performed By: #### C A, IPB, MGO, CHM7, HFP, OSMO #### [facility] (DEFAULT) [address] [place] [address] 21490 eGFR, CKD-EPI, Male > Normal >=60 [facility] Comment on above: Result Comment: Repo rted eGFR is based on the CKD-EPI 2020 equation using creatinine, age, and sex. Performed By: #### C A, IPB, MGO, CHM7, HFP, OSMO #### [facility] (DEFAULT) [address] [place] [address] 75586 Glucose [Mass/Vol] 131 mg/dL Normal Nonfastin -179 mg/dL; Fastin-99 [facility] Comment on above: Performed By: #### C A, IPB, MGO, CHM7, HFP, OSMO #### [facility] (DEFAULT) [address] [place] [address] 97269 Osmolality [Osmolality] 304 mosm/kg Normal 278-305 [facility] Comment on above: Performed By: #### C A, IPB, MGO, CHM7, HFP, OSMO #### [facility] (DEFAULT) [address] [place] [address] 57506 Potassium [Moles/Vol] 3.4 mmol/L Low 3.5-5.0 [facility] Comment on above: Performed By: #### C A, IPB, MGO, CHM7, HFP, OSMO #### [facility] (DEFAULT) [address] [place] [address] 01503 Sodium [Moles/Vol] 133 mmol/L Low 135-145 [facility] Comment on above: Performed By: #### C A, IPB, MGO, CHM7, HFP, OSMO #### [facility] (DEFAULT) [address] [place] [address] 10042 Urea nitrogen [Mass/Vol] 77 mg/dL High 7-25 [facility] Comment on above: Performed By: #### C A, IPB, MGO, CHM7, HFP, OSMO #### [facility] (DEFAULT) [address] [place] [address] 52703 Urea nitrogen/Creatinine [Mass ratio] 89 mg/mg Normal [facility] Comment on above: Performed By: #### C A, IPB, MGO, CHM7, HFP, OSMO #### [facility] (DEFAULT) [address] [place] [address] 92683 CREATININE,RANDOM URINEon Creatinine (U) [Mass/Vol] 58.71 mg/dL [facility] Creatinine (U) [Mass/Vol] 58.71 mg/dL Normal [facility] Comment on above: Order Comment: The r eference range has not been established for random urine specimens. The test result should be integrated into the clinical context for interpretation. Performed By: #### H [facility] #### [facility] (DEFAULT) [address] [place] [address] Electrocardiogram reportOrde red By: Arnaud Morrow on 09-29-2024 EKG study [facility] Cardiovascular Services [address] [place] [address] 12 Lead EKG 09/28/24 1538 MR#: [id number] Acct: [id number] Name: MAXX FORDE Rep #:[id number] : 1950 74 From: Arnaud Morrow MD Attending Dr: Status: REG E R Ordering Dr: Zack Turner DO Date: 5 Location: ED Sex: M C Admitted: Test Reason : cp Blood Pressure : */* mmHG Vent. Rate : 106 BPM Atrial Rate : * BPM P-R Int : * ms QRS Dur : 116 ms QT Int : 364 ms P-R-T Axes : * 25 56 degrees QTcB Int : 483 ms Atrial fibrillation with rapid ventricular response Possible Acute pericarditis Nonspecific T wave abnormality Abnormal ECG Confirmed by ARNAUD MORROW MD ([id number]), publications editor KIRSTEN CHIN ([id number]) on 09/29/2024 9:03:09 AM Referred By: Confirmed By: ARNAUD MORROW MD 09/29/24 0903 Date _ Arnaud Morrwo MD CC: Dr. Emanuel Garland DO; Dr. Zack Turner DO ~ Signed [facility] Other Phone: HEPATIC FUNCTION PANELon Albumin [Mass/Vol] 2.5 g/dL Low 3.5 - 5.0 g/dL [facility] ALP [Catalytic activity/Vol] 204 U/L High 32 - 126 U/L [facility] ALT [Catalytic activity/Vol] 16 U/L 10 - 52 U/L [facility] AST [Catalytic activity/Vol] 19 U/L 10 - 39 U/L [facility] Bilirubin [Mass/Vol] 0.8 mg/dL NINF - 1.5 mg/dL [facility] Bilirubin.direct [Mass/Vol] 0.3 mg/dL High NINF - 0.3 mg/dL [facility] Protein [Mass/Vol] 7.1 g/dL 6.4 - 8.3 g/dL [facility] Albumin [Mass/Vol] 2.5 g/dL Low 3.5-5.0 [facility] Comment on above: Performed By: #### C A, IPB, MGO, CHM7, HFP, OSMO #### [facility] (DEFAULT) [address] [place] [address] 73564 ALP [Catalytic activity/Vol] 204 U/L High 32-126 [facility] Comment on above: Performed By: #### C A, IPB, MGO, CHM7, HFP, OSMO #### [facility] (DEFAULT) [address] [place] [address] 60656 ALT [Catalytic activity/Vol] 16 U/L Normal 10-52 [facility] Comment on above: Performed By: #### C A, IPB, MGO, CHM7, HFP, OSMO #### [facility] (DEFAULT) [address] [place] [address] AST [Catalytic activity/Vol] 19 U/L Normal 10-39 [facility] Comment on above: Performed By: #### C A, IPB, MGO, CHM7, HFP, OSMO #### [facility] (DEFAULT) [address] [place] [address] 13858 Bilirubin [Mass/Vol] 0.8 mg/dL Normal <1.5 [facility] Comment on above: Performed By: #### C A, IPB, MGO, CHM7, HFP, OSMO #### [facility] (DEFAULT) [address] [place] [address] 97435 Bilirubin.indirect [Mass/Vol] 0.3 mg/dL High <0.3 [facility] Comment on above: Performed By: #### C A, IPB, MGO, CHM7, HFP, OSMO #### [facility] (DEFAULT) [address] [place] [address] 49804 Protein [Mass/Vol] 7.1 g/dL Normal 6.4-8.3 [facility] Comment on above: Performed By: #### C A, IPB, MGO, CHM7, HFP, OSMO #### [facility] (DEFAULT) [address] [place] [address] 36997 HISTOPLASMA ANTIGEN,URINEon 09-29-2024 Histoplasma Ag, Urine Not detected Normal Not Detected [facility] Comment on above: Result Comment: Hist oplasma galactomannan can be detected in patients with disseminated histoplasmosis. A negative results does not rule out histoplasmosis. Repeat testing on a new specimen should be considered if clinically indicated. False positive results may occur in patients with other fungal infections including blastomycosis. Results should be correlated with clinical presentation, exposure history and other diagnostics tests. Performed By: #### A MARYSOL, #### [facility] (DEFAULT) [address] [place] [address] 04773 LEGIONELLA URINARY AGon 09-11 Legionella Urinary Antigen Negative Normal Negative [facility] Comment on above: Performed By: #### H EMOGC #### [facility] (DEFAULT) [address] [place] [address] 66500 Lactic Acidon 09-29-2024 Lactate [Moles/Vol] 1.5 mmol/L Normal 0.0-2.0 [facility] Comment on above: Order Comment: 10-05 HEB. Performed By: #### L 300.3900, L300.4310, L100.1900 #### [facility] [address] [place], [address] MAGNESIUMon 09-29-2024 Magnesium [Mass/Vol] 2.9 mg/dL High 1.6 - 2 .6 mg/dL [facility] Magnesium [Mass/Vol] 2.9 mg/dL High 1.6-2.6 [facility] Comment on above: Performed By: #### C A, IPB, MGO, CHM7, HFP, OSMO #### [facility] (DEFAULT) [address] [place] [address] 32842 No Panel Informationon 09-29 Interpretation and review of laboratory results Abnormal [facility] OSMOLALITYon 09-29-2024 Interpretation and review of laboratory results Normal [facility] Osmolality [Osmolality] 303 mosm/kg [facility] Osmolality, Serum 303 mOsm/kg Normal 278-305 [facility] Comment on above: Performed By: #### C A, IPB, MGO, CHM7, HFP, OSMO #### [facility] (DEFAULT) [address] [place] [address] 30009 OSMOLALITY, URINEon 09-30-19 Interpretation and review of laboratory results Normal [facility] Osmolality (U) [Osmolality] 567 mosm/kg [facility] Osmolality, Urine 567 mOsm/kg Normal 300-900 [facility] Comment on above: Performed By: #### A MARYSOL, VLADIMIR #### [facility] (DEFAULT) [address] [place] [address] 83053 PHOSPHATE, INORGANICon 09-29 Interpretation and review of laboratory results Normal [facility] Phosphate [Mass/Vol] 2.7 mg/dL 2.2 - 4 .6 mg/dL [facility] Phosphorous 2.7 mg/dL Normal 2.2-4.6 [facility] Comment on above: Performed By: #### C A, IPB, MGO, CHM7, HFP, OSMO #### [facility] (DEFAULT) [address] [place] [address] 29038 PT,INR,PTTon 09-29-2024 aPTT Coag (PPP) [Time] 32.8 s [facility] INR Coag (Bld) [Relative time] 1.3 {INR} High 0.9 - 1.1 [facility] Interpretation and review of laboratory results Abnormal [facility] PT Coag (PPP) [Time] 16.6 s High [facility] aPTT Coag (Bld) [Time] 32.8 s Normal 24.0-34.3 [facility] Comment on above: Performed By: #### P TPTT #### [facility] (DEFAULT) [address] [place] [address] 58387 INR Coag (PPP) [Relative time] 1.3 {INR} High 0.9-1.1 [facility] Comment on above: Performed By: #### P TPTT #### [facility] (DEFAULT) [address] [place] [address] 15321 PT Coag (PPP) [Time] 16.6 s High 11.9-14.2 [facility] Comment on above: Performed By: #### P TPTT #### [facility] (DEFAULT) [address] [place] [address] 13285 SODIUM, RANDOM URINEOrdered By: Gregory Echols on 09-29-2024 Sodium (24H U) [Moles/Vol] mmol/L mmol/L [facility] SODIUM, RANDOM URINEon 09-29 Sodium (U) [Moles/Vol] mmol/L Normal [facility] Comment on above: Order Comment: The r eference range has not been established for random urine specimens. The test result should be integrated into the clinical context for interpretation. Performed By: #### H EMOGC #### [facility] (DEFAULT) [address] [place] [address] 48868 STREP PNEUMONIAE ANTIGEN, UR INEOrdered By: Lynda Kwan on 09-29-2024 Interpretation and review of laboratory results [facility] S. pneumoniae Ag Ql (U) Negative Negative [facility] STREP PNEUMONIAE ANTIGEN, UR INEon 09-29-2024 Strep Pneumoniae Antigen,Urine Negative Normal Negative [facility] Comment on above: Performed By: #### A MARYSOL, XM #### [facility] (DEFAULT) [address] [place] [address] 07162 URINALYSIS REFLEX TO CULTURE PERFORMABLEon 09-29-2024 Appearance (U) Clear Clear [facility] Bacteria LM Ql (Urine sed) ABSENT ABSENT [facility] Color (U) Yellow Yellow [facility] Epithelial cells.squamous LM Ql (Urine sed) 6-10/hpf = 2+ Abnormal 0-2/hpf, 3-5/hpf = 1+ [facility] Glucose Test strip (U) [Mass/Vol] Negative Negative [facility] Interpretation and review of laboratory results Abnormal [facility] Ketones (U) [Mass/Vol] Negative Negative [facility] Leukocyte esterase Test strip Ql (U) Negative Negative [facility] Nitrite Ql (U) Negative Negative [facility] pH (U) 6.0 [pH] 5.0 - 7.0 [facility] Protein (U) [Mass/Vol] Trace Abnormal Negative [facility] RBC (U) [#/Vol] Negative Negative [facility] RBC LM.HPF (Urine sed) [#/Area] 3-5 Abnormal [facility] Specific gravity (U) [Rel density] 1.019 1.001 - 1.035 [facility] Urobilinogen (U) [Mass/Vol] 1.0 E.U./dL 0.2 E.U/dL, 1.0 E.U/dL [facility] WBC LM.HPF (Urine sed) [#/Area] 0 - 5 [facility] Appearance (U) Clear Normal Clear [facility] Comment on above: Order Comment: For i ndwelling catheters, specimen collection is acceptable on catheter day 1 and 2 only. ? Performed By: #### Diana GREGG, XM #### [facility] (DEFAULT) [address] [place] [address] 84193 Bacteria ABSENT Normal ABSENT [facility] Comment on above: Order Comment: For i ndwelling catheters, specimen collection is acceptable on catheter day 1 and 2 only. ? Performed By: #### Diana GREGG, XM #### [facility] (DEFAULT) [address] [place] [address] 07479 Blood Urine Negative Normal Negative [facility] Comment on above: Order Comment: For i ndwelling catheters, specimen collection is acceptable on catheter day 1 and 2 only. ? Performed By: #### Diana GREGG, XM #### [facility] (DEFAULT) [address] [place] [address] 38189 Color (U) Yellow Normal Yellow [facility] Comment on above: Order Comment: For i ndwelling catheters, specimen collection is acceptable on catheter day 1 and 2 only. ? Performed By: #### Diana GREGG, XM #### [facility] (DEFAULT) [address] [place] [address] 11726 Glucose Ql (U) Negative Normal Negative [facility] Comment on above: Order Comment: For i ndwelling catheters, specimen collection is acceptable on catheter day 1 and 2 only. ? Performed By: #### Diana GREGG, XM #### [facility] (DEFAULT) [address] [place] [address] 67401 Ketones Ql (U) Negative Normal Negative [facility] Comment on above: Order Comment: For i ndwelling catheters, specimen collection is acceptable on catheter day 1 and 2 only. ? Performed By: #### Diana GREGG, XM #### [facility] (DEFAULT) [address] [place] [address] 50519 Leukocyte esterase Test strip Ql (U) Negative Normal Negative [facility] Comment on above: Order Comment: For i ndwelling catheters, specimen collection is acceptable on catheter day 1 and 2 only. ? Performed By: #### Diana GREGG, XM #### [facility] (DEFAULT) [address] [place] [address] 71329 Nitrites Urine Negative Normal Negative [facility] Comment on above: Order Comment: For i ndwelling catheters, specimen collection is acceptable on catheter day 1 and 2 only. ? Performed By: #### Diana GREGG, XM #### [facility] (DEFAULT) [address] [place] [address] 69598 pH (U) 6.0 [pH] Normal 5.0-7.0 [facility] Comment on above: Order Comment: For i ndwelling catheters, specimen collection is acceptable on catheter day 1 and 2 only. ? Performed By: #### Diana GREGG, XM #### [facility] (DEFAULT) [address] [place] [address] 15405 Protein Urine Trace Abnormal Negative [facility] Comment on above: Order Comment: For i ndwelling catheters, specimen collection is acceptable on catheter day 1 and 2 only. ? Performed By: #### Diana GREGG, XM #### [facility] (DEFAULT) [address] [place] [address] 20338 RBC Urine 3-5 Abnormal 0-2 [facility] Comment on above: Order Comment: For i ndwelling catheters, specimen collection is acceptable on catheter day 1 and 2 only. ? Performed By: #### Diana GREGG, XM #### [facility] (DEFAULT) [address] [place] [address] 03180 Specific [place] Urine 1.019 Normal 1.001-1.035 [facility] Comment on above: Order Comment: For i ndwelling catheters, specimen collection is acceptable on catheter day 1 and 2 only. ? Performed By: #### Diana GREGG, XM #### [facility] (DEFAULT) [address] [place] [address] 90917 Squamous/Epithelial Cells, Urine 6-10/hpf = 2+ Abnormal 0-2/hpf, 3-5/hpf = 1+ [facility] Comment on above: Order Comment: For i ndwelling catheters, specimen collection is acceptable on catheter day 1 and 2 only. ? Performed By: #### Diana GREGG, XM #### [facility] (DEFAULT) [address] [address] Urobilinogen Urine 1.0 E.U./dL Normal 0.2 E.U/d L, 1.0 E.U/dL [facility] Comment on above: Order Comment: For i ndwelling catheters, specimen collection is acceptable on catheter day 1 and 2 only. ? Performed By: #### A MARYSOL, XM #### [facility] (DEFAULT) [address] [address] WBC Urine 0 - 5 Normal 0 - 5 [facility] Comment on above: Order Comment: For i ndwelling catheters, specimen collection is acceptable on catheter day 1 and 2 only. ? Performed By: #### Diana GREGG, XM #### [facility] (DEFAULT) [address] [address] 12 Lead EKGon 09-28-2024 12 Lead EKG [facility] Cardiovascular Services [address] [place] [address] 12 Lead EKG 09/28/24 1538 MR#: [id number] Acct: [id number] Name: MAXX FORDE Rep #: [id number] : 1950 74 From: Arnaud Morrow MD Attending Dr: Status: REG ER Ordering Dr: Zack Turner DO Date: 09/28/24 Location: ED Sex: M C Admitted: Test Reason : cp Blood Pressure : */* mmHG Vent. Rate : 106 BPM Atrial Rate : * BPM P-R Int : * ms QRS Dur : 116 ms QT Int : 364 ms P-R-T Axes : * 25 56 degrees QTcB Int : 483 ms Atrial fibrillation with rapid ventricular response Possible Acute pericarditis Nonspecific T wave abnormality Abnormal ECG Confirmed by CRISTHIAN HURLEY, ARNAUD ([id number]), publications editor KIRSTEN CHIN ([id number]) on 09/29/2024 9:03:09 AM Referred By: Confirmed By: ARNAUD MORROW MD 09/29/24902 Date Arnaud Morrow MD CC: Dr. Emanuel Garland, ; Dr. Zack Turner DO Signed Normal [facility] Absolute lymphocyte countOrd ered By: Zack Turner on 09-28-2024 Lymphocytes Auto (Unsp spec) [#/Vol] 0.73 10*3/uL Low 0.83-4.51 [facility] Absolute lymphocyte countOrd ered By: Dago Singleton on 09-28-2024 Lymphocytes Auto (Unsp spec) [#/Vol] 0.58 10*3/uL Low 0.83-4.51 [facility] Absolute neutrophil countOrd ered By: Zack Turner on 09-28-2024 Neutrophils (Bld) [#/Vol] 29.0 10*3/uL High 2.0-7.7 [facility] Absolute neutrophil countOrd ered By: Dago Singleton on 09-28-2024 Neutrophils (Bld) [#/Vol] 31.0 10*3/uL High 2.0-7.7 [facility] Activated partial thrombopla stin time (aPTT) in platelet poor plasma by coagulation aOrdered By: Zack Turner on 09-28-2024 aPTT Coag (PPP) [Time] 35.8 s 24.1-36.2 [facility] Anaerobic cultureOrdered By: Adriana Lipscomb on 09-28-2024 Bacteria identified Anaer cx Nom (Unsp spec) Parvimonas micra Abnormal [facility] Bacteria identified Anaer cx Nom (Unsp spec) Schaalia canis Abnormal [facility] Bacteria identified Anaer cx Nom (Unsp spec) Anaerobic cocci Abnormal [facility] Bacteria identified Anaer cx Nom (Unsp spec) Fusobacterium nucleatum Abnormal [facility] Anion gap in Serum or Plasma Ordered By: Zack Turner on 09-28-2024 Anion gap [Moles/Vol] 19 mmol/L High 5-15 [facility] Automated lymphocyte count a s percentage of total leukocytesOrdered By: Zack Turner on 09-28-2024 Lymphocytes/100 WBC Auto (Unsp spec) 2.3 % Low 19-41 [facility] Automated lymphocyte count a s percentage of total leukocytesOrdered By: Dago Singleton on 09-28-2024 Lymphocytes/100 WBC Auto (Unsp spec) 1.7 % Low 19-41 [facility] BUN/creatinine ratioOrdered By: Zack Turner on 09-28-2024 BUN/creatinine ratio UNABLE TO CALCULATE RATIO Low 10-20 [facility] Basophil percentageOrdered B y: Zack Turner on 09-28-2024 Basophils/100 WBC (Bld) 0.4 % 0-1 [facility] Basophil percentageOrdered B y: Dago Singleton on 09-28-2024 Basophils/100 WBC (Bld) 0.4 % 0-1 [facility] Bilirubin, totalOrdered By: Zack Turner on 09-28-2024 Bilirubin [Mass/Vol] 0.69 mg/dL 0.00-1.30 [facility] Blood cultureOrdered By: Rashad Turner on 09-28-2024 Bacteria identified Cx Nom (Bld) No growth in 5 days. [facility] Bacteria identified Cx Nom (Bld) No growth in 5 days. [facility] Blood manual differential co mment interpretation (narrative result)Ordered By: Zack Turner on 09-28-2024 Manual differential comment Collin (Bld) [Interp] SCANNED [facility] Body Fluid Cell Count+Diffon 09-28-2024 PATH COMM/BF Reviewed Normal [facility] Comment on above: Order Comment: The r eference range and other method performancespecifications have not been established for this bodyfluid. The test must be integrated into the clinicalcontext for interpretation.LEFT THORACIC Result Comment: Acut e and chronic inflammatory cells with bacterial cocci present. Recommend correlation with microbiology and clinical findings. Shanelle Lyman MD 09/28/2024 AMENDED REPORT 09/28/24 1611 PATH COMM/BF previously reported as: May follow Performed By: #### L 500.4050, L100.0100, L501.9910, L500.4100 #### [facility] [place], [address] Body fluid appearance (nomin al result)Ordered By: Adriana Lipscomb on 09-28-2024 Appearance (Body fld) TURBID [facility] Body fluid color determinati onOrdered By: Adriana Lipscomb on 09-28-2024 Color (Body fld) See comment [facility] Comment on above: BROWN Body fluid erythrocytes coun t (number/volume)Ordered By: Adriana Lipscomb on 09-28-2024 RBC (Body fld) [#/Vol] 160 10*3/uL [facility] Comment on above: Previous reported re sult: 0.008 10^6/ulEdited by: EDIS on 09/28/24:1240 AMENDED REPORT 09/28/24 1240 RBC/BF previously reported as: 0.008 10^6/ul Body fluid lactate dehydroge nase measurement (enzymatic activity/volume) by pyruvateOrdered By: Adriana Lipscomb on 09-28-2024 LDH Pyruvate to lactate reaction (Body fld) [Catalytic activity/Vol] > 2500 Units/L Not Establ. [facility] Body fluid leukocytes count (number/volume)Ordered By: Adriana Lipscomb on 09-28-2024 WBC (Body fld) [#/Vol] 152.740 10*3/uL [facility] Comment on above: Previous reported re sult: 7.637 10^3/uLEdited by: EDIS on 09/28/24:1241 AMENDED REPORT 09/28/24 1241 WBC/BF previously reported as: 7.637 10^3/uL Body fluid mononuclear cell percentageOrdered By: Adriana Lipscomb on 09-28-2024 Mononuclear cells/100 WBC (Body fld) 76.6 % [facility] Comment on above: Previous reported re sult: 76.6 %Edited by: EDIS on 09/28/24:1241 AMENDED REPORT 09/28/24 1241 BF MN WBC% previously reported as: 76.6 % Body fluid protein measureme nt (mass/volume)Ordered By: Adriana Lipscomb on 09-28-2024 Protein (Body fld) [Mass/Vol] 4.9 g/dL Not Establ. [facility] Body fluid segmented neutrop hils count (number/volume)Ordered By: Adriana Lipscomb on 09-28-2024 Segmented neutrophils (Body fld) [#/Vol] See comment [facility] Comment on above: UNABLE TO PERFORM DI FFERENTIAL DUE TO CELLULAR DISINTEGRATION. PLEASE REFER TO ANALYZER DIFFERENTIAL. Body fluid total cell countO rdered By: Adriana Lipscomb on 09-28-2024 Cells Counted Total (Body fld) [#] 156.960 10^3/ul [facility] Comment on above: Previous reported re sult: 7.848 10^3/ulEdited by: EDIS on 09/28/24:1240 AMENDED REPORT 09/28/24 1240 BFTC# previously reported as: 7.848 10^3/ul This is the Total Number of Nucleated Cell Types in the Body Fluid. CBC W/Diff, Automatedon 09-11 WBC (Bld) [#/Vol] 33.4 10*3/uL Invalid Interpretation Code 4.4-11.0 [facility] Comment on above: Result Comment: CRIT ICAL VALUE CALLED TO Montserrat SHER LPN 09/28/24 1333 Sena Perez. RESULTS READ BACK BY SAME. AMENDED REPORT 09/28/24 1333 WBC previously reported as: 33.4 *H K/mm3 Performed By: #### L 300.3900, L300.4310, L100.1900 #### [facility] [address] [facility] [facility] [place], [address] Carbon dioxide, total [Moles /volume] in Central venous bloodOrdered By: Zack Turner on 09-28-2024 CO2 [Moles/Vol] 17.7 mmol/L Low 21.0-32.0 [facility] Chest without Contraston Chest without Contrast [facility] [address] [place] [address] Chest without Contrast MR#: [id number] Acct: [id number] Name: MAXX FORDE Rep #: [id number] : 1950 M 74 From: Dago Oconnell PCP: Dr. Emanuel Garland DO Status: REG CLI Study: Chest without Contrast Date of Exam: 09/28/24 Exam# [id number] Ordering Dr: Dago Singleton MD PROCEDURE: CHEST WITHOUT CONTRAST 09/28/2024 REASON FOR EXAM: S/P THORA TECHNIQUE: Chest CT without contrast. Coronal and Sagittal reconstruction series were provided. One or more dose reduction techniques were used (e.g., Automated exposure control, adjustment of the mA and/or kV according to patient size, use of iterative reconstruction technique. RADIATION DOSE SUMMARY: CTDlvol: 16.62 mGy DLP: 677.09 mGycm COMPARISON: Pre-procedure CT of 09/28/2024 and ultrasound-guided thoracentesis images of 09/28/2024. FINDINGS: A small pericardial effusion is again noted. A large multiloculated left pleural fluid collection is again seen, although clearly diminished from the preprocedure study of earlier the same day. No pneumothorax is noted. Areas of significant left lung atelectasis are noted, and cannot exclude the presence of areas of pneumonitis. No solid-appearing mass is clearly evident. No right pleural effusion is seen. The visualized upper abdomen shows no acute process. Prominent degenerative changes of the spine are also seen. CT/Chest without Contrast IMPRESSION: 1. Large multiloculated left pleural fluid collection, diminished since the preceding left thoracentesis. 2. Small pericardial effusion again noted. 3. No pneumothorax is noted. Reading Location: [place] [address] CC: Dr. Dago Singleton MD; Dr. Emanuel Garland DO Mold Injector: Signed Normal [facility] Chest without Contrast [facility] [address] [place] [address] Chest without Contrast MR#: [id number] Acct: [id number] Name: MAXX FORDE Rep #: [id number] : 1950 M 74 From: Dago Oconnell PCP: Dr. Emanuel Garland DO Status: REG CLI Study: Chest without Contrast Date of Exam: 09/28/24 Exam# [id number] Ordering Dr: Adriana Lipscomb SHEAR GRINDER OPERATOR HELPER SHEAR GRINDER OPERATOR HELPER-C PROCEDURE: CHEST WITHOUT CONTRAST 09/28/2024 REASON FOR EXAM: NEW 5 CM LUNG MASS left lower lobe TECHNIQUE: Chest CT without contrast. Coronal and Sagittal reconstruction series were provided. One or more dose reduction techniques were used (e.g., Automated exposure control, adjustment of the mA and/or kV according to patient size, use of iterative reconstruction technique RADIATION DOSE SUMMARY: CTDlvol: 17.10 mGy DLP: 638.45 mGycm COMPARISON: Chest CT of 09/19/2024. FINDINGS: The patient presented for (and was consented for) planned left lower lobe CT-guided core biopsy. Reimaging demonstrates a very large left pleural fluid collection, with some areas of loculation noted. The previous apparent left lower lobe mass is not identified on today's examination. No pneumothorax is noted. Also, mild cardiomediastinal shift to the right is seen. Additionally, newly seen is a small pericardial effusion. Because of these findings, a core biopsy was not performed. The patient was then consented for an ultrasound-guided left thoracentesis. CT/Chest without Contrast IMPRESSION: 1. Large left pleural fluid collection, increased since the study of 09/19/2024. 2. Small pericardial effusion now seen. 3. Additional findings as noted. Reading Location: [place] [address] CC: SHEAR GRINDER OPERATOR HELPER-C Adriana Lipscomb; Dr. Emanuel Garland DO Mold Injector: Signed Normal [facility] Chloride assayOrdered By: Coleman Turner on 09-28-2024 Chloride [Moles/Vol] 90 mmol/L Low 98-108 [facility] Comprehensive Metabolic Prof ilon 09-28-2024 Urea nitrogen [Mass/Vol] 116 mg/dL Invalid Interpretation Code 05-30 [facility] Comment on above: Result Comment: Crit ical Result(s) Called at: 09-28-24 19:35 TO FREDI CHATTERJEE by:??BROOKLYN SINGER Results read back by same. Performed By: #### L 500.4050, L100.0100, L501.9910, L500.4100 #### [facility] [address] [place], [address] Cytology report of Body flui d Cyto stainOrdered By: Adriana Lipscomb on 09-28-2024 Cytology report Cyto stain Doc (Body fld) SEE PATHOLOGY REPORT [facility] Comment on above: Specimen submitted t o Anatomical Pathology Department for testing. Cytology, Body Fluid / CSFon 09-28-2024 CYTOLOGY,BF/CSF SEE PATHOLOGY REPORT Normal [facility] Comment on above: Order Comment: Comme nts: with flow cytometry pleaseLEFT THORACIC Result Comment: Spec imen submitted to Anatomical Pathology Department for testing. Performed By: #### L 500.4050, L100.0100, L501.9910, L500.4100 #### [facility] [address] [place], [place], [address] Emergency Department Summary on 09-28-2024 Emergency Department Summary [facility] Medical Records Department [address] [place] [address] Emergency Department Summary 09/28/24 MR#: [id number] Acct: [id number] Name: MAXX FORDE Rep #: [id number] : 1950 74 From: Zack Agustin PCP: Dr. Emanuel Garland, DO Status:DEP ER Location: ED HPI History of Present Illness Chief Complaint: Chest Pain Informant: patient and family Narrative Narrative: Patient here with 2 daughters. Sent in by pulmonary office concerns for empyema left lung after thoracentesis done today. Patient was seen 9 days from the ED for left-sided chest pain he had a CAT scan concerning 5 cm mass left lower lung. He followed with PCP who referred him to pulmonology. They had set up for potential lung biopsy today however repeat CT scan was performed noting a large pleural effusion therefore thoracentesis was performed. There is discussion my partners with the pulmonary office, exudative drainage from thoracentesis white count was 33 now more concerning for empyema. Patient history of hypertension A-fib on Eliquis he had his Eliquis held since Saturday. She has had the intermittent left lower chest pain in the region of his findings since then. No coronary disease history. No fever or chills. Review of records, thoracentesis 1340 mL removed. Initial CTA chest 9 days ago 5 cm left lower lobe mass versus loculation. CT chest performed prethoracentesis large pleural effusion. Additional CT chest post thoracentesis additional loculations of fluid however decreased from initial CT. There is no clear masses seen. White count was 33. Prior similar symptoms: No PFSH PFSH Medical History COPD (chronic obstructive pulmonary disease) Atrial fibrillation Premature atrial contractions Hyperlipidemia Essential [...] PO BID [facility]ing [facility]24 Rx Held on 09/29/24. [facility] #180 tabs Instructions: for thoracentesis acetaminophen 500 mg tablet 500 mg PO Q6H PRN pain 09/28/24 Un known History (Tylenol Extra Strength) ibuprofen 200 mg capsule 200 mg PO Q8H 09/28/24 Unknown His tory tramadol 50 mg tablet 50 mg PO Q8H PRN PRN severe pain 0 09/28/24 Unknown History albuterol sulfate 2.5 mg/3 mL 2.5 mg (3 mL) inhalation Q4H PRN 0 09/29/24 Unknown Rx (0.083 %) solution for nebulization Sob /Or Wheezing #180 mL Allergy/AdvReac Type Severity Reaction Status Date / Time No Known Allergies Allergy Verified 09/28/24 15:21 Family History Father Heart disease Surgical History [place] esophagus (12/2022) History of ventral hernia repair History of Santos fundoplication History of hernia surgery ( 09/2021) Social History Smoking Status: Never smoker alcohol intake: current alcohol intake frequency: a few times a week substance use type: does not use caffeine: Yes Type: coffee Number of servings: 2 ROS ROS ED Constitutional Constitutional ED: Denies chills, fever(s) or sweats ENT ENT ED: Denies sore throat Cardiovascular Cardiovascular: Reports chest pain; Denies leg edema, palpitations or racing heartbeat Respiratory/Chest Respiratory/Chest: Reports dyspnea; Denies cough or dyspnea on exertion Gastrointestinal Gastrointestinal: Denies abdominal pain, diarrhea, nausea or vomiting Genitourinary Genitourinary ED: Denies dysuria, hematuria or urinary frequency Musculoskeletal Musculoskeletal: Denies back pain, extremity pain or neck pain Integumentary Denies rash or wounds Neurologic Neurologic: Denies headache(s), paresthesias or weakness EXAM Physical Exam Const Vital Signs: 09/28/24 15:22 09/28/24 16:19 09/28/24 18:00 Temperature 97.5 F L 97.9 F 97.9 F Temperature Source Temporal Oral Oral Pulse Rate 93 91 97 Respiratory Rate 16 18 19 H Respiratory Effort Respiratory Depth Respiratory Pattern Blood Pressure 105/60 114/68 105/58 L Blood Pressure Mean 75 83 72 Pulse Ox 96 96 100 Oxygen Delivery Method (more content not included)... Normal [facility] Eosinophil percentageOrdered By: Zack Turner on 09-28-2024 Eosinophils/100 WBC (Bld) 0.0 % 0-5 [facility] Eosinophil percentageOrdered By: Dago Singleton on 09-28-2024 Eosinophils/100 WBC (Bld) 0.0 % 0-5 [facility] Erythrocyte distribution wid th ratioOrdered By: Zack Turner on 09-28-2024 Erythrocyte distribution width (RBC) [Ratio] 13.2 % 11.6-14.6 [facility] Erythrocyte distribution wid th ratioOrdered By: Dago Singleton on 09-28-2024 Erythrocyte distribution width (RBC) [Ratio] 13.2 % 11.6-14.6 [facility] Erythrocyte distribution wid th standard deviationOrdered By: Zack Turner on 09-28-2024 Erythrocyte distribution width (RBC) [Ratio] 40.6 fl 35.1-43.9 [facility] Erythrocyte distribution wid th standard deviationOrdered By: Dago Singleton on 09-28-2024 Erythrocyte distribution width (RBC) [Ratio] 40.4 fl 35.1-43.9 [facility] Glomerular filtration rate ( GFR) estimation/1.73 sq m using serum, plasma, or whole bOrdered By: Zack Turner on 09-28-2024 GFR/1.73 sq M.predicted among non-blacks MDRD (S/P/Bld) [Vol rate/Area] 36 mL/min/{1.73_m2} Low >60 [facility] Comment on above: mL/min/1.73m2 CKD-EP I Creatinine Equation (2020) Gram Stainon 09-28-2024 GS UNKNOWN UNKNOWN with flow cytometry please Centrifuged Specimen? Culture performed on centrifuged specimen Gram Stain 3+ Gram positive cocci 1+ Gram negative rods Normal [facility] Comment on above: Performed By: #### L 500.4050, L100.0100, L501.9910, L500.4100 #### [facility] [address] [place] [address], [address] Gram stainOrdered By: Mahesh Lipscobm on 09-28-2024 Microscopic observation Gram stain Nom (Unsp spec) [facility] Hematocrit Auto (Bld) [Volum e fraction]Ordered By: Zack Turner on 09-28-2024 Hematocrit (Bld) [Volume fraction] 35.8 % Low 40-54 [facility] Hematocrit Auto (Bld) [Volum e fraction]Ordered By: Dago Singleton on 09-28-2024 Hematocrit (Bld) [Volume fraction] 37.3 % Low 40-54 [facility] Hemoglobin measurementOrdere d By: Zack Turner on 09-28-2024 Hemoglobin (Bld) [Mass/Vol] 12.5 g/dL Low 13.0-16.5 [facility] Hemoglobin measurementOrdere d By: Dago Singleton on 09-28-2024 Hemoglobin (Bld) [Mass/Vol] 13.1 g/dL 13.0-16.5 [facility] Immature granulocytes/100 WB C Auto (Bld)Ordered By: Zack Turner on 09-28-2024 Immature granulocytes/100 WBC (Bld) 2.300 % High 0.0-0.9 [facility] Comment on above: IG% - Immature Granu locytes (promyelocytes, myelocytes and metamyelocytes) > 1% indicates that a LEFT SHIFT is Present. Immature granulocytes/100 WB C Auto (Bld)Ordered By: Dago Singleton on 09-28-2024 Immature granulocytes/100 WBC (Bld) 1.700 % High 0.0-0.9 [facility] Comment on above: IG% - Immature Granu locytes (promyelocytes, myelocytes and metamyelocytes) > 1% indicates that a LEFT SHIFT is Present. International normalized rat io (INR) calculationOrdered By: Zack Turner on 09-28-2024 INR Coag (Bld) [Relative time] 1.6 {INR} [facility] L501.4021on 09-28-2024 Trop T High Sen 12 ng/L Normal <=22 [facility] Comment on above: Performed By: #### L 300.3900, L300.4310, L100.1900 #### [facility] [address] [place], [address] LDHon 09-28-2024 LDH 162 U/L Normal 87-241 [facility] Comment on above: Order Comment: with flow cytometry please1 Performed By: #### L 500.4050, L100.0100, L501.9910, L500.4100 #### [facility] [address] [place], [address] LDH,Body Fluidon 09-28-2024 LDH,BF > 2500 Normal Not Establ. [facility] Comment on above: Order Comment: LEFT THORACIC Performed By: #### L 500.4050, L100.0100, L501.9910, L500.4100 #### [facility] [address] [place], [address] Laboratory - Chemistry and C hemistry - challengeOrdered By: Zack Turner on 09-28-2024 AST [Catalytic activity/Vol] 34 U/L <38 [facility] Lactate dehydrogenase (LDH) measurementOrdered By: Adriana Lipscomb on 09-28-2024 LDH [Catalytic activity/Vol] 162 U/L 87-241 [facility] Lactic Acidon 09-28-2024 Lactate [Moles/Vol] 2.4 mmol/L Invalid Interpretation Code 0.0-2.0 [facility] Comment on above: Order Comment: Y Result Comment: Hortencia hughes Result(s) Called at: 09-28-24 17:19 TO SKIP URIOSTEGUI by:??BROOKLYN SINGER Results read back by same. Performed By: #### L 500.4050, L100.0100, L501.9910, L500.4100 #### [facility] [address] [place], [address] Lactic acid measurementOrder ed By: Zack Turner on 09-28-2024 Lactate [Moles/Vol] 1.5 mmol/L 0.0-2.0 [facility] MCV (mean corpuscular volume ) determinationOrdered By: Zack Turner on 09-28-2024 MCV (RBC) [Entitic vol] 84.2 fL 80-94 [facility] MCV (mean corpuscular volume ) determinationOrdered By: Dago Singleton on 09-28-2024 MCV (RBC) [Entitic vol] 84.0 fL 80-94 [facility] Mean corpuscular hemoglobin (MCH) determinationOrdered By: Zack Turner on 09-28-2024 MCH (RBC) [Entitic mass] 29.4 pg 27.0-32.0 [facility] Mean corpuscular hemoglobin (MCH) determinationOrdered By: Dago Singleton on 09-28-2024 MCH (RBC) [Entitic mass] 29.5 pg 27.0-32.0 [facility] Mean corpuscular hemoglobin concentration (MCHC) determinationOrdered By: Zack Turner on 09-28-2024 MCHC (RBC) [Mass/Vol] 34.9 g/dL 32-36 [facility] Mean corpuscular hemoglobin concentration (MCHC) determinationOrdered By: Dago Singleton on 09-28-2024 MCHC (RBC) [Mass/Vol] 35.1 g/dL 32-36 [facility] Mean platelet volume determi nationOrdered By: Zack Turner on 09-28-2024 Platelet mean volume (Bld) [Entitic vol] 9.5 fL 6.2-12.0 [facility] Mean platelet volume determi nationOrdered By: Dago Singleton on 09-28-2024 Platelet mean volume (Bld) [Entitic vol] 9.2 fL 6.2-12.0 [facility] Monocyte percentageOrdered B y: Zack Turner on 09-28-2024 Monocytes/100 WBC (Bld) 3.1 % 0-10 [facility] Monocyte percentageOrdered B y: Dago Singleton on 09-28-2024 Monocytes/100 WBC (Bld) 3.6 % 0-10 [facility] Neutrophil percentageOrdered By: Zack Turner on 09-28-2024 Neutrophils/100 WBC (Bld) 91.9 % High 47-70 [facility] Neutrophil percentageOrdered By: Dago Singleton on 09-28-2024 Neutrophils/100 WBC (Bld) 92.6 % High 47-70 [facility] No Panel InformationOrdered By: Adriana Lipscomb on 09-28-2024 Body Fluid Comment 2 SEE COMMENT [facility] Comment on above: .INTERPRETATION OF R ESULTS: Differentiation of transudate and exudate fluid: TRANSUDATE EXUDATE Color- Clear,straw colored Clear,turbid,bloody,purulent RBCs- Usually none to few Often present in high numbers WBCs- Usually none to few Often present in high numbers DIFF Few lymphocytes or Lymphocytes, neutrophils, andCount- mesothelial cells. polymorphonuclear cells . Nucleated red blood cell per centageOrdered By: Zack Turner on 09-28-2024 Nucleated RBC/100 WBC (Bld) [Ratio] 0 % 0-5 [facility] Nucleated red blood cell per centageOrdered By: Dago Singleton on 09-28-2024 Nucleated RBC/100 WBC (Bld) [Ratio] 0 % 0-5 [facility] Partial Thromboplast Timeon 09-28-2024 aPTT Coag (Bld) [Time] 35.8 s Normal 24.1-36.2 [facility] Comment on above: Performed By: #### L 300.3900, L300.4310 #### [facility] [address] [place], [address] Pathologist interpretation o f Body fluid testsOrdered By: Adriana Lipscomb on 09-28-2024 Pathologist interpretation (Body fld) [Interp] Reviewed [facility] Comment on above: Previous reported re sult: May follow Edited by: YOVANY on 09/28/24:1611Acute and chronic inflammatory cells with bacterial cocci present. Recommend correlation with microbiology and clinical findings.Shanelle Lyman MD 09/28/2024 AMENDED REPORT 09/28/24 1611 PATH COMM/BF previously reported as: May follow Platelet countOrdered By: Coleman Turner on 09-28-2024 Platelets (Bld) [#/Vol] 482 10*3/uL High 150-450 [facility] Platelet countOrdered By: Sajan Singleton on 09-28-2024 Platelets (Bld) [#/Vol] 443 10*3/uL 150-450 [facility] Platelet estimateOrdered By: Zack Turner on 09-28-2024 Platelets LM Ql (Bld) SLT INC [facility] Platelet estimateOrdered By: Dago Singleton on 09-28-2024 Platelets LM Ql (Bld) ADEQUATE [facility] Potassium measurement (mass/ volume)Ordered By: Zack Turner on 09-28-2024 Potassium (Unsp spec) [Mass/Vol] 3.7 mmol/L 3.3-5.1 [facility] Protein, Body Fluidon 2024 Protein [Mass/Vol] 4.9 g/dL Normal Not Establ. [facility] Comment on above: Order Comment: LEFT THORACIC Performed By: #### L 500.4050, L100.0100, L501.9910, L500.4100 #### [facility] [address] [place], [address] Protein, Totalon 09-28-2024 T PROT 7.3 g/dL Normal 5.9-8.4 [facility] Comment on above: Performed By: #### L 500.4050, L100.0100, L501.9910, L500.4100 #### [facility] [address] [place], [address] Prothrombin Time w/INRon INR Coag (PPP) [Relative time] 1.6 {INR} Normal [facility] Comment on above: Performed By: #### L 300.3900, L300.4310 #### [facility] [address] [place], [address] INR Normal [facility] Comment on above: Result Comment: This specimen has been REJECTED due to Laboratory criteria: Hemolyzed. BEE MCDANIELS has been notified of need of recollection. 09/28/241656 Yumi Arthur Performed By: #### L 500.4050, L100.0100, L501.9910, L500.4100 #### [facility] [address] [place], [address] PROTIME Normal 11.7-14.9 [facility] Comment on above: Result Comment: This specimen has been REJECTED due to Laboratory criteria: Hemolyzed. BEE MCDANIELS has been notified of need of recollection. 09/28/241656 Yumi Arthur Performed By: #### L 500.4050, L100.0100, L501.9910, L500.4100 #### [facility] [address] [place], [address] Prothrombin timeOrdered By: Zack Turner on 09-28-2024 PT Coag (PPP) [Time] 19.6 s High 11.7-14.9 [facility] Comment on above: Performed By: #### L 300.3900, L300.4310 #### [facility] [address] [place], [address] RBC Auto (Bld) [#/Vol]Ordere d By: Zack Turner on 09-28-2024 RBC (Bld) [#/Vol] 4.25 10*6/uL Low 4.6-6.2 [facility] RBC Auto (Bld) [#/Vol]Ordere d By: Dago Singleton on 09-28-2024 RBC (Bld) [#/Vol] 4.44 10*6/uL Low 4.6-6.2 [facility] Review by pathologistOrdered By: Zack Turner on 09-28-2024 Pathologist review Collin (Unsp spec) [Interp] Martha sevilla [facility] Pathologist review Collin (Unsp spec) [Interp] Reviewed [facility] Comment on above: Previous reported re sult: Martha sevilla Edited by: YOVANY on 10/09/24:1001SEE REPORT IN PATIENT'S EMR AMENDED REPORT 10/09/24 1001 PATH REV previously reported as: Martha sevilla Serum creatinine measurement (mass/volume)Ordered By: Zack Turner on 09-28-2024 Creatinine [Mass/Vol] 1.93 mg/dL High 0.70-1.20 [facility] Serum globulin measurementOr dered By: Zack Turner on 09-28-2024 Globulin (S) [Mass/Vol] 4.5 g/dL High 2.2-4.2 [facility] Serum glucose measurement (m ass/volume)Ordered By: Zack Turner on 09-28-2024 Glucose [Mass/Vol] 110 mg/dL High 70-99 [facility] Serum or plasma alanine nance otransferase (ALT) measurementOrdered By: Zack Turner on 09-28-2024 ALT [Catalytic activity/Vol] 23 U/L <47 [facility] Serum or plasma albumin caesar urement (mass/volume)Ordered By: Zack Turner on 09-28-2024 Albumin [Mass/Vol] 2.7 g/dL Low 3.4-4.8 [facility] Serum or plasma albumin/glob ulin mass ratioOrdered By: Zack Turner on 09-28-2024 Albumin/Globulin [Mass ratio] 0.6 {ratio} Low 0.9-2.4 [facility] Serum or plasma alkaline nasim sphatase measurementOrdered By: Zack Turner on 09-28-2024 ALP [Catalytic activity/Vol] 327 U/L High 40-129 [facility] Serum or plasma calcium caesar urement (mass/volume)Ordered By: Zack Turner on 09-28-2024 Calcium [Mass/Vol] 8.4 mg/dL 7.6-11.0 [facility] Serum or plasma urea nitroge n measurement (mass/volume)Ordered By: Zack Turner on 09-28-2024 Urea nitrogen [Mass/Vol] 116 mg/dL Critically high 4-19 [facility] Comment on above: Critical Result(s) C alled at: 09-28-24 19:35 TO FREDI CHATTERJEE by: BROOKLYN SINGER Results read back by same. Sodium levelOrdered By: Zack Turner on 09-28-2024 Sodium [Moles/Vol] 127 mmol/L Low 133-145 [facility] Special Stain Group IIon Special Stain Group II Patient Age/Sex Location Account Attending Physician MAXX FORDE 74/M CT [id number] PEG Teran Specimen: [id number] Received: 09/28/24-1027 Status: MIRIAM Moon Num: [id number] Spec Type: Fluid Subm Dr: Adriana Lipscomb, SHEAR GRINDER OPERATOR HELPER-C HEADER OPERATION: Thoracentesis PRE-OP DIAGNOSIS: Pleural effusion TISSUE SUBMITTED: A- Thoracentesis fluid for cytology DIAGNOSIS CYTOLOGY A. Pleural fluid, thoracentesis (cytospin, cellblock): - No malignant cells identified. - Acute inflammation. CYTOLOGY STUDY Slides are reviewed. CYTOLOGY GROSS A. Received is 100 ml of brown-cloudy fluid labeled with the patient's name and and designated per the requisition as Thoracentesis fluid. Submitted for cytology and cell block preparation. 09/28/2024 CPT: 75961,83593 Signed (signature on file) Dr. Shanelle Lyman MD 09/30/24 1027 Normal [facility] Comment on above: Performed By: #### L 300.3900, L300.4310, L100.1900 #### [facility] [address] [place], [place], [id number] Specimen source identificati on of body fluidOrdered By: Adriana Lipscomb on 09-28-2024 Specimen source Nom (Body fld) THORACENTESIS [facility] Thoracentesis W USon 025 Thoracentesis W US [facility] Imaging Services [address] [place] [address] Thoracentesis W US MR#: [id number] Acct: [id number] Name: MAXX FORDE Rep #: [id number] : 1950 M 74 From: Dago Oconnell PCP: Dr. Emanuel Garland DO Status: REG CLI Study: Thoracentesis W US Date of Exam: 09/28/24 Exam# [id number] Ordering Dr: Adriana Lipscomb NP SHEAR GRINDER OPERATOR HELPER-C PROCEDURE: THORACENTESIS W US 09/28/2024 REASON FOR EXAM: LEFT PLEURAL EFFUSION TECHNIQUE: THORACENTESIS W US COMPARISON: Chest CT of 09/28/2024. FINDINGS: Initial images show multiple loculated components of a large left pleural fluid collection. Procedure: Following informed consent, and using standard sterile technique, an ultrasound-guided left thoracentesis was performed via a posterior approach. 2% lidocaine local anesthesia was followed by placement of a 5 Mongolian catheter into the left pleural fluid collection. Approximately 1340 mL lightly blood-tinged purulent appearing fluid was successfully removed. No complication was encountered, in the patient left the department in good condition without significant complaint US/Thoracentesis W US IMPRESSION: Successful diagnostic and therapeutic ultrasound-guided left thoracentesis. Laboratory results pending. Repeat CT examination to follow. Reading Location: [place] [address] CC: SHEAR GRINDER OPERATOR HELPER-C Adriana Lipscomb; Dr. Emanuel Garland DO Mold Injector: Signed Normal [facility] Total proteinOrdered By: Rashad Turner on 09-28-2024 Protein [Mass/Vol] 7.2 g/dL 5.9-8.4 [facility] Total proteinOrdered By: Luc Lipscomb on 09-28-2024 Protein [Mass/Vol] 7.3 g/dL 5.9-8.4 [facility] Toxic leukocyte granulation detectionOrdered By: Dago Singleton on 09-28-2024 Toxic granules LM Ql (Bld) 4+ [facility] Troponin T HS 2 HRon 025 Trop T High Sen 12 ng/L Normal <=22 [facility] Comment on above: Performed By: #### L 500.4050, L100.0100, L501.9910, L500.4100 #### [facility] [address] [place], [address] Troponin T HS 4 HRon 025 Trop T High Sen Normal <=22 [facility] Comment on above: Result Comment: Brooklyn ly via OM: MD Ordered Performed By: #### L 300.3900, L300.4310, L100.1900 #### [facility] [address] [place], [address] Troponin T.cardiac [Mass/vol ume] in Serum or Plasma by High sensitivity methodOrdered By: Zack Turner on 09-28-2024 Troponin T.cardiac High sensitivity method [Mass/Vol] 12 ng/L <22 [facility] Troponin T.cardiac High sensitivity method [Mass/Vol] 12 ng/L Invalid Interpretation Code <22 [facility] Comment on above: Delta: 11 on 5-1231 White blood cell (WBC) count Ordered By: Zack Turner on 09-28-2024 WBC (Bld) [#/Vol] 31.6 10*3/uL Critically high 4.4-11.0 [facility] Comment on above: CRITICAL VALUE RUFFIN D TO DEUCE BROWN09/28/24 1724 Yumi Arthur.RESULTS READ BACK BY SAME. White blood cell (WBC) count Ordered By: Dago Singleton on 09-28-2024 WBC (Bld) [#/Vol] 33.4 10*3/uL Critically high 4.4-11.0 [facility] Comment on above: CRITICAL VALUE RUFFIN D TO Montserrat SHER LPN09/28/24 1333 Sena Perez.RESULTS READ BACK BY SAME. Previous reported result: 33.4 [id number] by: EDIS on 09/28/24:1333 AMENDED REPORT 09/28/24 1333 WBC previously reported as: 33.4 *H K/mm3 aPTTon 09-28-2024 aPTT [facility] Activated partial thrombopla stin time (aPTT) in platelet poor plasma by coagulation aOrdered By: Adriana Lipscomb on 09-22-2024 aPTT Coag (PPP) [Time] 40.9 s High 24.1-36.2 [facility] International normalized rat io (INR) calculationOrdered By: Adriana Lipscomb on 09-22-2024 INR Coag (Bld) [Relative time] 1.8 {INR} [facility] Partial Thromboplast Timeon 09-22-2024 aPTT Coag (Bld) [Time] 40.9 s High 24.1-36.2 [facility] Comment on above: Performed By: #### L 300.3900, L300.4310, L100.1900 #### [facility] [address] [place], [address] Platelet Counton 09-22-2024 Platelets (Bld) [#/Vol] 358 10*3/uL Normal 150-450 [facility] Comment on above: Performed By: #### L 300.3900, L300.4310, L100.1900 #### [facility] [address] [place], [address] Platelet countOrdered By: Junior Lipscomb on 09-22-2024 Platelets (Bld) [#/Vol] 358 10*3/uL 150-450 [facility] Prothrombin Time w/INRon INR Coag (PPP) [Relative time] 1.8 {INR} Normal [facility] Comment on above: Performed By: #### L 300.3900, L300.4310, L100.1900 #### [facility] [address] [place], [address] PT Coag (PPP) [Time] 21.4 s High 11.7-14.9 [facility] Comment on above: Performed By: #### L 300.3900, L300.4310, L100.1900 #### [facility] [address] [place], [address] Prothrombin timeOrdered By: Adriana Lipscomb on 09-22-2024 PT Coag (PPP) [Time] 21.4 s High 11.7-14.9 [facility] Pulmonary Visit Reporton Pulmonary Visit Report [facility] [address] [place] [address] OFFICE VISIT Date of Service: 09/22/24 MR#: [id number] Acct: [id number] Name: MAXX FORDE Rep #: [id number] : 1950 Provider: PEG Lipscomb Age/Sex: 74/M Location: [facility].PM[facility] Status: Signed Assessment and Plan Assessment and [...] Additional Comments: This note was generated with [employer] dictation software. It may contain incorrect words, [...] esophageal spasm causing the discomfort. Has known Magallon's esophagus. Currently the chest discomfort that he [...] He frequently has his endoscopies due to Magallon's esophagus. He has never seen a nutrition instructor. He is a lifelong never smoker. He is never been prescribed an inhaler. He has a pulse ox meter at home and checks his saturation occasionally at rest. On room air he is typically 95% or higher. They have not checked his oxygen saturation on exertion. He has not had any unintentional weight loss. However, when he has these endoscopies for his Magallon's esophagus which include intervention, it causes him to have a decreased appetite for several days and he has been known to regularly fluctu (more content not included)... [facility] 12 Lead EKGon 09-19-2024 12 Lead EKG [facility] Cardiovascular Services [address] [place] [address] 12 Lead EKG 09/19/24 1230 MR#: [id number] Acct: [id number] Name: MAXX FORDE Rep #: [id number] : 1950 74 From: Arnaud Morrow MD [...] Abnormal ECG Confirmed by ARNAUD MORROW MD ([id number]), publications editor KIRSTEN CHIN ([id number]) on 09/21/2024 1:11:03 PM Referred By: Confirmed By: ARNAUD MORROW MD 09/21/24 1311 Date Arnaud Morrow MD CC: Dr. Candido Rivera MD; Dr. Emanuel Garland, DO Signed [facility] Absolute lymphocyte countOrd ered By: Candido Rivera on 09-19-2024 Lymphocytes Auto (Unsp spec) [#/Vol] 1.67 10*3/uL 0.83-4.51 [facility] Absolute neutrophil countOrd ered By: Candido Rivera on 09-19-2024 Neutrophils (Bld) [#/Vol] 7.3 10*3/uL 2.0-7.7 [facility] Anion gap in Serum or Plasma Ordered By: Candido Rivera on 09-19-2024 Anion gap [Moles/Vol] 13 mmol/L - [facility] Automated lymphocyte count a s percentage of total leukocytesOrdered By: Candido Rivera on 09-19-2024 Lymphocytes/100 WBC Auto (Unsp spec) 17.0 % Low [facility] BUN/creatinine ratioOrdered By: Candido Rivera on 09-19-2024 Urea nitrogen/Creatinine [Mass ratio] 15.0 mg/mg 11-30 [facility] Basic Metabolic Profile (BMP )on 09-19-2024 BUN/CRE 15.0 RATIO Normal - [facility] Comment on above: Performed By: #### L 500.4050, L100.0100, L501.9910, L500.4100 #### [facility] [address] [place], [address] Calcium [Mass/Vol] 9.1 mg/dL Normal 7.6-11.0 [facility] Comment on above: Performed By: #### L 500.4050, L100.0100, L501.9910, L500.4100 #### [facility] [address] [place], [address] Chloride [Moles/Vol] 100 mmol/L Normal 98-108 [facility] Comment on above: Performed By: #### L 500.4050, L100.0100, L501.9910, L500.4100 #### [facility] [address] [place], [address] CO2 [Moles/Vol] 23.3 mmol/L Normal 21.0-32.0 [facility] Comment on above: Performed By: #### L 500.4050, L100.0100, L501.9910, L500.4100 #### [facility] [address] [place], [address] Creatinine [Mass/Vol] 0.70 mg/dL Normal 0.70-1.20 [facility] Comment on above: Performed By: #### L 500.4050, L100.0100, L501.9910, L500.4100 #### [facility] [address] [place], [address] ECRCL 86.28 ml/min Normal 50-250 [facility] Comment on above: Performed By: #### L 500.4050, L100.0100, L501.9910, L500.4100 #### [facility] [address] [place], [address] GAP 13 Normal 5-15 [facility] Comment on above: Performed By: #### L 500.4050, L100.0100, L501.9910, L500.4100 #### [facility] [address] [place], [address] GFR/1.73 sq M.predicted among non-blacks MDRD (S/P/Bld) [Vol rate/Area] 97 mL/min/{1.73_m2} Normal >60 [facility] Comment on above: Result Comment: mL/m in/1.73m2 CKD-EPI Creatinine Equation (2020) Performed By: #### L 500.4050, L100.0100, L501.9910, L500.4100 #### [facility] [address] [place], [address] Glucose [Mass/Vol] 152 mg/dL High 70-99 [facility] Comment on above: Performed By: #### L 500.4050, L100.0100, L501.9910, L500.4100 #### [facility] [address] [place], [address] Potassium [Moles/Vol] 3.7 mmol/L Normal 3.3-5.1 [facility] Comment on above: Performed By: #### L 500.4050, L100.0100, L501.9910, L500.4100 #### [facility] [address] [place], [address] Sodium [Moles/Vol] 136 mmol/L Normal 133-145 [facility] Comment on above: Performed By: #### L 500.4050, L100.0100, L501.9910, L500.4100 #### [facility] [address] [place], [address] Urea nitrogen [Mass/Vol] 11 mg/dL Normal 4-19 [facility] Comment on above: Performed By: #### L 500.4050, L100.0100, L501.9910, L500.4100 #### [facility] [address] [place], [address] Basophil percentageOrdered B y: Candido Rivera on 09-19-2024 Basophils/100 WBC (Bld) 0.4 % 0-1 [facility] CBC W/Diff, Automatedon Absolute Lymph 1.67 X10 3/uL Normal 0.83-4.51 [facility] Comment on above: Performed By: #### L 500.4050, L100.0100, L501.9910, L500.4100 #### [facility] [address] [place], [address] Absolute Neut 7.3 X10 3/uL Normal 2.0-7.7 [facility] Comment on above: Performed By: #### L 500.4050, L100.0100, L501.9910, L500.4100 #### [facility] [address] [place], [address] Basophils/100 WBC (Bld) 0.4 % Normal 0-1 [facility] Comment on above: Performed By: #### L 500.4050, L100.0100, L501.9910, L500.4100 #### [facility] [address] [place], [address] Eosinophils/100 WBC (Bld) 2.1 % Normal 0-5 [facility] Comment on above: Performed By: #### L 500.4050, L100.0100, L501.9910, L500.4100 #### [facility] [address] [place], [address] Erythrocyte distribution width (RBC) [Ratio] 12.3 % Normal 11.6-14.6 [facility] Comment on above: Performed By: #### L 500.4050, L100.0100, L501.9910, L500.4100 #### [facility] [address] [place], [address] Hematocrit (Bld) [Volume fraction] 36.9 % Low 40-54 [facility] Comment on above: Performed By: #### L 500.4050, L100.0100, L501.9910, L500.4100 #### [facility] [address] [place], [address] Hemoglobin (Bld) [Mass/Vol] 12.3 g/dL Low 13.0-16.5 [facility] Comment on above: Performed By: #### L 500.4050, L100.0100, L501.9910, L500.4100 #### [facility] [address] [place], [address] IG% 0.300 Normal 0.0-0.9 [facility] Comment on above: Result Comment: IG% - Immature Granulocytes (promyelocytes, myelocytes and metamyelocytes) > 1% indicates that a LEFT SHIFT is Present. Performed By: #### L 500.4050, L100.0100, L501.9910, L500.4100 #### [facility] [address] [place], [address] Lymphocytes/100 WBC (Bld) 17.0 % Low 19-41 [facility] Comment on above: Performed By: #### L 500.4050, L100.0100, L501.9910, L500.4100 #### [facility] [address] [place], [address] MCH (RBC) [Entitic mass] 29.6 pg Normal 27.0-32.0 [facility] Comment on above: Performed By: #### L 500.4050, L100.0100, L501.9910, L500.4100 #### [facility] [address] [place], [address] MCHC (RBC) [Mass/Vol] 33.3 g/dL Normal 32-36 [facility] Comment on above: Performed By: #### L 500.4050, L100.0100, L501.9910, L500.4100 #### [facility] [address] [place], [address] MCV (RBC) [Entitic vol] 88.9 fL Normal 80-94 [facility] Comment on above: Performed By: #### L 500.4050, L100.0100, L501.9910, L500.4100 #### [facility] [address] [place], [address] Monocytes/100 WBC (Bld) 5.9 % Normal 0-10 [facility] Comment on above: Performed By: #### L 500.4050, L100.0100, L501.9910, L500.4100 #### [facility] [address] [place], [address] Neutrophils/100 WBC (Bld) 74.3 % High 47-70 [facility] Comment on above: Performed By: #### L 500.4050, L100.0100, L501.9910, L500.4100 #### [facility] [address] [place], [address] Nucleated RBC (Bld) [#/Vol] 0 10*3/uL Normal 0-5 [facility] Comment on above: Performed By: #### L 500.4050, L100.0100, L501.9910, L500.4100 #### [facility] [address] [place], [address] Platelet mean volume (Bld) [Entitic vol] 9.2 fL Normal 6.2-12.0 [facility] Comment on above: Performed By: #### L 500.4050, L100.0100, L501.9910, L500.4100 #### [facility] [address] [place], [address] Platelets (Bld) [#/Vol] 380 10*3/uL Normal 150-450 [facility] Comment on above: Performed By: #### L 500.4050, L100.0100, L501.9910, L500.4100 #### [facility] [address] [place], [address] RBC (Bld) [#/Vol] 4.15 10*6/uL Low 4.6-6.2 [facility] Comment on above: Performed By: #### L 500.4050, L100.0100, L501.9910, L500.4100 #### [facility] [address] [place], [address] RDW SD 40.0 fl Normal 35.1-43.9 [facility] Comment on above: Performed By: #### L 500.4050, L100.0100, L501.9910, L500.4100 #### [facility] [address] [place], [address] WBC (Bld) [#/Vol] 9.8 10*3/uL Normal 4.4-11.0 [facility] Comment on above: Performed By: #### L 500.4050, L100.0100, L501.9910, L500.4100 #### [facility] [address] [place], [address] CTA Chest W/WO Contraston CTA Chest W/WO Contrast [facility] Imaging Services [address] [place] [address] CTA Chest W/WO Contrast MR#: [id number] Acct: [id number] Name: MAXX FORDE Rep #: [id number] : 1950 M 74 From: Emanuel Turner MD PCP: Dr. Emanuel Garland, DO Status: REG ER Study: CTA Chest W/WO Contrast Date of Exam: 09/19/24 Exam# [id number] Ordering Dr: Candido Rivera MD EXAM: CT [...] 4. Moderate esophageal hiatal hernia. Reading Location: [facility] CC: Dr. Candido Rivera MD; Dr. Emanuel Garland DO Mold Injector: Signed Normal [facility] Carbon dioxide, total [Moles /volume] in Central venous bloodOrdered By: Candido Rivera on 09-19-2024 CO2 [Moles/Vol] 23.3 mmol/L 21.0-32.0 [facility] Chest 1 View (Portable)on Chest 1 View (Portable) [facility] Imaging Services [address] [place] [address] Chest 1 View (Portable) MR#: [id number] Acct: [id number] Name: MAXX FORDE Rep #: [id number] : 1950 M 74 From: Hamilton Castelan MD PCP: Dr. Emanuel Garland, Status: REG ER Study: Chest 1 View (Portable) Date of Exam: 09/19/24 Exam# [id number] Ordering Dr: Candido Rivera MD PROCEDURE: CHEST [...] pneumonia in the appropriate scenario. Reading Location: [facility] CC: Dr. Candido Rivera MD; Dr. Emanuel Garland DO Mold Injector: Signed Normal [facility] Chloride assayOrdered By: Christian Rivera on 09-19-2024 Chloride [Moles/Vol] 100 mmol/L 98-108 [facility] D-Dimer Quantitative (DVT/PE )on 09-19-2024 D-DIMER QUANT 3.94 FEU/ug/m Invalid Interpretation Code 0.27-0.49 [facility] Comment on above: Result Comment: CRIT ICAL VALUE CALLED TO Saleem VASQUEZ 09/19/24 1343 Sena Perez. RESULTS READ BACK BY SAME. D-Dimer ELEVATED (>0.49): Additional studies and clinical assessments are indicated to conclude diagnosis of: Deep Vein Thrombosis (DVT) or Pulmonary Embolism (PE) Performed By: #### L 500.4050, L100.0100, L501.9910, L500.4100 #### [facility] [address] [facility] [place], [address] Emergency Department Summary on 09-19-2024 Emergency Department Summary [facility] Medical Records Department [address] [place] [address] Emergency Department Summary 09/19/24 MR#: [id number] Acct: [id number] Name: MAXX FORDE Rep #: [id number] : 1950 74 From: Candido Rivera MD PCP: Dr. Emanuel Garland DO Status:REG ER Location: ED HPI History [...] past medical history of A-fib, hypertension and Magallon's esophagitis. Typically is on Eliquis it has been stopped since Saturday due to an upcoming endoscopy. No prior history of DVT or PE. No prior [place], coronary disease or stents. States he was [...] TAD Risk Factors: Negative for Marfan's Syndrome [facility] Medical History Atrial fibrillation Premature atrial contractions [...] Family History Father Heart disease Surgical History Magallon esophagus (12/2022) History of ventral hernia repair [...] 4 ext (more content not included)... Normal [facility] Eosinophil percentageOrdered By: Candido Rivera on 09-19-2024 Eosinophils/100 WBC (Bld) 2.1 % 0-5 [facility] Erythrocyte distribution wid th ratioOrdered By: Candido Rivera on 09-19-2024 Erythrocyte distribution width (RBC) [Ratio] 12.3 % 11.6-14.6 [facility] Erythrocyte distribution wid th standard deviationOrdered By: Candido Rivera on 09-19-2024 Erythrocyte distribution width (RBC) [Ratio] 40.0 fl 35.1-43.9 [facility] Glomerular filtration rate ( GFR) estimation/1.73 sq m using serum, plasma, or whole bOrdered By: Candido Rivera on 09-19-2024 GFR/1.73 sq M.predicted among non-blacks MDRD (S/P/Bld) [Vol rate/Area] 97 mL/min/{1.73_m2} >60 [facility] Comment on above: mL/min/1.73m2 CKD-EP I Creatinine Equation (2020) Hematocrit Auto (Bld) [Volum e fraction]Ordered By: Candido Rivera on 09-19-2024 Hematocrit (Bld) [Volume fraction] 36.9 % Low 40-54 [facility] Hemoglobin measurementOrdere d By: Candido Rivera on 09-19-2024 Hemoglobin (Bld) [Mass/Vol] 12.3 g/dL Low 13.0-16.5 [facility] Immature granulocytes/100 WB C Auto (Bld)Ordered By: Candido Rivera on 09-19-2024 Immature granulocytes/100 WBC (Bld) 0.300 % 0.0-0.9 [facility] Comment on above: IG% - Immature Granu locytes (promyelocytes, myelocytes and metamyelocytes) > 1% indicates that a LEFT SHIFT is Present. L501.4021on 09-19-2024 Trop T High Sen 11 ng/L Normal <=22 [facility] Comment on above: Performed By: #### L 500.4050, L100.0100, L501.9910, L500.4100 #### [facility] [address] [place], [address] MCV (mean corpuscular volume ) determinationOrdered By: Candido Rivera on 09-19-2024 MCV (RBC) [Entitic vol] 88.9 fL 80-94 [facility] Mean corpuscular hemoglobin (MCH) determinationOrdered By: Candido Rivera on 09-19-2024 MCH (RBC) [Entitic mass] 29.6 pg 27.0-32.0 [facility] Mean corpuscular hemoglobin concentration (MCHC) determinationOrdered By: Candido Rivera on 09-19-2024 MCHC (RBC) [Mass/Vol] 33.3 g/dL 32-36 [facility] Mean platelet volume determi nationOrdered By: Candido Rivera on 09-19-2024 Platelet mean volume (Bld) [Entitic vol] 9.2 fL 6.2-12.0 [facility] Monocyte percentageOrdered B y: Candido Rivera on 09-19-2024 Monocytes/100 WBC (Bld) 5.9 % 0-10 [facility] Neutrophil percentageOrdered By: Candido Rivera on 09-19-2024 Neutrophils/100 WBC (Bld) 74.3 % High 47-70 [facility] Nucleated red blood cell per centageOrdered By: Candido Rivera on 09-19-2024 Nucleated RBC/100 WBC (Bld) [Ratio] 0 % 0-5 [facility] Platelet countOrdered By: Christian Rivera on 09-19-2024 Platelets (Bld) [#/Vol] 380 10*3/uL 150-450 [facility] Potassium measurement (mass/ volume)Ordered By: Candido Rivera on 09-19-2024 Potassium (Unsp spec) [Mass/Vol] 3.7 mmol/L 3.3-5.1 [facility] RBC Auto (Bld) [#/Vol]Ordere d By: Candido Rivera on 09-19-2024 RBC (Bld) [#/Vol] 4.15 10*6/uL Low 4.6-6.2 [facility] Serum creatinine measurement (mass/volume)Ordered By: Candido Rivera on 09-19-2024 Creatinine [Mass/Vol] 0.70 mg/dL 0.70-1.20 [facility] Serum glucose measurement (m ass/volume)Ordered By: Candido Rivera on 09-19-2024 Glucose [Mass/Vol] 152 mg/dL High 70-99 [facility] Serum or plasma calcium caesar urement (mass/volume)Ordered By: Candido Rivera on 09-19-2024 Calcium [Mass/Vol] 9.1 mg/dL 7.6-11.0 [facility] Serum or plasma urea nitroge n measurement (mass/volume)Ordered By: Candido Rivera on 08-09-2025 Urea nitrogen [Mass/Vol] 11 mg/dL 4-19 [facility] Sodium levelOrdered By: Candido Rivera on 09-19-2024 Sodium [Moles/Vol] 136 mmol/L 133-145 [facility] Troponin T HS 2 HRon 025 Trop T High Sen 8 ng/L Normal <=22 [facility] Comment on above: Performed By: #### L 500.4050, L100.0100, L501.9910, L500.4100 #### [facility] [address] [place], [address] Troponin T HS 4 HRon 025 Trop T High Sen Normal <=22 [facility] Comment on above: Result Comment: Canc elled via OM: Order cancelled - Patient discharged Performed By: #### L 300.3900, L300.4310, L100.1900 #### [facility] [address] [place], [place], [address] Troponin T.cardiac [Mass/vol ume] in Serum or Plasma by High sensitivity methodOrdered By: Candido Rivera on 09-19-2024 Troponin T.cardiac High sensitivity method [Mass/Vol] 8 ng/L <22 [facility] Troponin T.cardiac High sensitivity method [Mass/Vol] 11 ng/L <22 [facility] White blood cell (WBC) count Ordered By: Candido Rivera on 09-19-2024 WBC (Bld) [#/Vol] 9.8 10*3/uL 4.4-11.0 [facility] Cardiology Visit Reporton Cardiology Visit Report [facility] [address] [place], [place] [address] OFFICE VISIT Date of Service: 04/21/24 MR#: [id number] Acct: [id number] Name: MAXX FORDE Rep #: [id number] : 1950 Provider: NICOLE Bahena Age/Sex: 74/M [place] [facility] [place]: Signed HPI HPI History of Present Illness Details: Maxx Forde is a 72-year-old male who presents [...] Intake Visit Reasons: 1 Y FU/MOVED FROM [place] [employer] [facility] [place] Required: No Is patient in pain?: No [...] hypertension Ventral incisional hernia Arthritis Surgical History Magallon esophagus (12/2022) History of ventral hernia repair [...] estimated ejec (more content not included)... Normal [facility] H AND Josué 03-04-2025 H AND P [facility] [address] ([address]) [facility] [address] [facility] [id number] Maxx Forde is a 73 y.o. male being seen on 01/29/24 for Chief Complaint Patient presents with Follow-up RFA HPI: The patient presents today to schedule his next RFA. He has a known history of long segment Magallon's and has undergone RFA. He is also undergoing a Santos fundoplication. Today he denies heartburn, regurgitation, or esophageal dysphagia. He and his are getting ready to leave for [place] for 2 months. History - Past Medical History Past Medical History: Diagnosis Date Atrial fibrillation (HCC) 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 2017 [place] GERD (gastroesophageal reflux disease) Hiatal hernia 07/31/2022 small type-I sliding Hypercholesteremia Hypertension PONV (postoperative nausea and vomiting) History - Past Surgical History Past Surgical History: Procedure Laterality Date ABDOMINAL HERNIA REPAIR 02/26/2014 EGD N/A 04/04/2020 Procedure: ESOPHAGOGASTRODUODENOSCOPY ; Surgeon: Abbe Wood MD; Location: Main OR; Service: [employer] EGD N/A 12/15/2020 Procedure: ESOPHAGOGASTRODUODENOSCOPY WITH BIOPSY; Surgeon: Abbe Wood MD; Location: Endo; Service: General Surgery EGD N/A 12/27/2020 Procedure: ESOPHAGOSCOPY WITH BIOPSY; Surgeon: Abbe Wood MD; Location: Endo; Service: General Surgery ESOPHAGOGASTRODUODENOSCOPY 11/25/2017 Magallon's esophagus.....Thomae ESOPHAGOGASTRODUODENOSCOPY 12/21/2019 [place]ae ESOPHAGOSCOPY N/A 01/02/2021 Procedure: ESOPHAGOSCOPY WITH RFA; Surgeon: Abbe Wood MD; Location: Endo; Service: Gastroenterology ESOPHAGOSCOPY N/A 07/04/2021 Procedure: ESOPHAGOSCOPY; Surgeon: Abbe Wood MD; Location: Endo; Service: Gastroenterology ESOPHAGOSCOPY N/A 07/18/2021 Procedure: ESOPHAGOSCOPY WITH RFA; Surgeon: Abbe Wood MD; Location: Endo; Service: Gastroenterology ESOPHAGOSCOPY N/A 05/01/2021 Procedure: ESOPHAGOSCOPY WITH RFA; Surgeon: Abeb Wood MD; Location: Endo; Service: Gastroenterology ESOPHAGOSCOPY [...] medicati (more content not included)... Normal [facility] CBC W/Diff, Automatedon 12-0 9-2023 Absolute Lymph 1.48 X10 3/uL Normal 0.83-4.51 [facility] Comment on above: Performed By: #### L 500.4050, L100.0100, L501.9910, L500.4100 #### [facility] [address] [place], [address] Absolute Neut 2.6 X10 3/uL Normal 2.0-7.7 [facility] Comment on above: Performed By: #### L 500.4050, L100.0100, L501.9910, L500.4100 #### [facility] [address] [place], [address] Basophils/100 WBC (Bld) 1.5 % High 0-1 [facility] Comment on above: Performed By: #### L 500.4050, L100.0100, L501.9910, L500.4100 #### [facility] [address] [place], [address] Eosinophils/100 WBC (Bld) 3.0 % Normal 0-5 [facility] Comment on above: Performed By: #### L 500.4050, L100.0100, L501.9910, L500.4100 #### [facility] [address] [place], [address] Erythrocyte distribution width (RBC) [Ratio] 12.1 % Normal 11.6-14.6 [facility] Comment on above: Performed By: #### L 500.4050, L100.0100, L501.9910, L500.4100 #### [facility] [address] [place], [address] Hematocrit (Bld) [Volume fraction] 42.5 % Normal 40-54 [facility] Comment on above: Performed By: #### L 500.4050, L100.0100, L501.9910, L500.4100 #### [facility] [address] [place], [address] Hemoglobin (Bld) [Mass/Vol] 13.8 g/dL Normal 13.0-16.5 [facility] Comment on above: Performed By: #### L 500.4050, L100.0100, L501.9910, L500.4100 #### [facility] [address] [place], [address] IG% 0.200 Normal 0.0-0.9 [facility] Comment on above: Result Comment: IG% - Immature Granulocytes (promyelocytes, myelocytes and metamyelocytes) > 1% indicates that a LEFT SHIFT is Present. Performed By: #### L 500.4050, L100.0100, L501.9910, L500.4100 #### [facility] [address] [place], [address] Lymphocytes/100 WBC (Bld) 31.8 % Normal 19-41 [facility] Comment on above: Performed By: #### L 500.4050, L100.0100, L501.9910, L500.4100 #### [facility] [address] [place], [address] MCH (RBC) [Entitic mass] 29.9 pg Normal 27.0-32.0 [facility] Comment on above: Performed By: #### L 500.4050, L100.0100, L501.9910, L500.4100 #### [facility] [address] [place], [address] MCHC (RBC) [Mass/Vol] 32.5 g/dL Normal 32-36 [facility] Comment on above: Performed By: #### L 500.4050, L100.0100, L501.9910, L500.4100 #### [facility] [address] [place], [address] MCV (RBC) [Entitic vol] 92.0 fL Normal 80-94 [facility] Comment on above: Performed By: #### L 500.4050, L100.0100, L501.9910, L500.4100 #### [facility] [address] [place], [address] Monocytes/100 WBC (Bld) 8.8 % Normal 0-10 [facility] Comment on above: Performed By: #### L 500.4050, L100.0100, L501.9910, L500.4100 #### [facility] [address] [place], [address] Neutrophils/100 WBC (Bld) 54.7 % Normal 47-70 [facility] Comment on above: Performed By: #### L 500.4050, L100.0100, L501.9910, L500.4100 #### [facility] [address] [place], [address] Nucleated RBC (Bld) [#/Vol] 0 10*3/uL Normal 0-5 [facility] Comment on above: Performed By: #### L 500.4050, L100.0100, L501.9910, L500.4100 #### [facility] [address] [place], [address] Platelet mean volume (Bld) [Entitic vol] 10.0 fL Normal 6.2-12.0 [facility] Comment on above: Performed By: #### L 500.4050, L100.0100, L501.9910, L500.4100 #### [facility] [address] [place], [address] Platelets (Bld) [#/Vol] 229 10*3/uL Normal 150-450 [facility] Comment on above: Performed By: #### L 500.4050, L100.0100, L501.9910, L500.4100 #### [facility] [address] [place], [address] RBC (Bld) [#/Vol] 4.62 10*6/uL Normal 4.6-6.2 [facility] Comment on above: Performed By: #### L 500.4050, L100.0100, L501.9910, L500.4100 #### [facility] [address] [place], [address] RDW SD 41.1 fl Normal 35.1-43.9 [facility] Comment on above: Performed By: #### L 500.4050, L100.0100, L501.9910, L500.4100 #### [facility] [address] [place], [address] WBC (Bld) [#/Vol] 4.7 10*3/uL Normal 4.4-11.0 [facility] Comment on above: Performed By: #### L 500.4050, L100.0100, L501.9910, L500.4100 #### [facility] [address] [place], [address] Comprehensive Metabolic Prof ilon 01-20-2024 Albumin [Mass/Vol] 3.9 g/dL Normal 3.2-5.0 [facility] Comment on above: Performed By: #### L 500.4050, L100.0100, L501.9910, L500.4100 #### [facility] [address] [place], [address] Albumin/Globulin [Mass ratio] 1.0 {ratio} Normal 0.9-2.4 [facility] Comment on above: Performed By: #### L 500.4050, L100.0100, L501.9910, L500.4100 #### [facility] [address] [place], [address] ALK P 79 U/L Normal 45-117 [facility] Comment on above: Performed By: #### L 500.4050, L100.0100, L501.9910, L500.4100 #### [facility] [address] [place], [address] ALT [Catalytic activity/Vol] 23 U/L Normal 16-61 [facility] Comment on above: Performed By: #### L 500.4050, L100.0100, L501.9910, L500.4100 #### [facility] [address] [place], [address] AST [Catalytic activity/Vol] 19 U/L Normal 15-37 [facility] Comment on above: Performed By: #### L 500.4050, L100.0100, L501.9910, L500.4100 #### [facility] [address] [place], [address] Bilirubin [Mass/Vol] 0.40 mg/dL Normal 0.20-1.00 [facility] Comment on above: Result Comment: For patients on eltrombopag therapy, use of Dimension [place] TBIL is not recommended. Performed By: #### L 500.4050, L100.0100, L501.9910, L500.4100 #### [facility] [address] [place], [address] BUN/CRE 16.4 RATIO Normal 10-20 [facility] Comment on above: Performed By: #### L 500.4050, L100.0100, L501.9910, L500.4100 #### [facility] [address] [place], [address] CA,Total 9.6 mg/dL Normal 8.5-10.1 [facility] Comment on above: Performed By: #### L 500.4050, L100.0100, L501.9910, L500.4100 #### [facility] [address] [place], [address] Chloride [Moles/Vol] 104 mmol/L Normal 98-107 [facility] Comment on above: Performed By: #### L 500.4050, L100.0100, L501.9910, L500.4100 #### [facility] [address] [place], [address] CO2 [Moles/Vol] 31.0 mmol/L Normal 21.0-32.0 [facility] Comment on above: Performed By: #### L 500.4050, L100.0100, L501.9910, L500.4100 #### [facility] [address] [place], [address] Creatinine [Mass/Vol] 0.79 mg/dL Normal 0.70-1.30 [facility] Comment on above: Result Comment: The validity of the calculated GFR GFRAA in patients over 70 years has not been determined. Clinical correlation is essential. Performed By: #### L 500.4050, L100.0100, L501.9910, L500.4100 #### [facility] [address] [place], [address] EST GFR - AA 123 mL/min Normal >60 [facility] Comment on above: Result Comment: Afri can Cambodian GFR Calc Performed By: #### L 500.4050, L100.0100, L501.9910, L500.4100 #### [facility] [address] [place], [address] GAP 4 Low 5-15 [facility] Comment on above: Performed By: #### L 500.4050, L100.0100, L501.9910, L500.4100 #### [facility] [address] [place], [address] GFR/1.73 sq M.predicted among non-blacks MDRD (S/P/Bld) [Vol rate/Area] 101 mL/min/{1.73_m2} Normal >60 [facility] Comment on above: Result Comment: Non- GFR Calc Performed By: #### L 500.4050, L100.0100, L501.9910, L500.4100 #### [facility] [address] [place], [address] Globulin (S) [Mass/Vol] 3.8 g/dL Normal 2.2-4.2 [facility] Comment on above: Performed By: #### L 500.4050, L100.0100, L501.9910, L500.4100 #### [facility] [address] [place], [address] Glucose [Mass/Vol] 119 mg/dL High 74-106 [facility] Comment on above: Result Comment: Fast ing Glucose result from 100 to 125 mg/dL suggests IMPAIRED HOMEOSTASIS per A.D.A. criteria. Performed By: #### L 500.4050, L100.0100, L501.9910, L500.4100 #### [facility] [address] [place], [address] Potassium [Moles/Vol] 3.9 mmol/L Normal 3.5-5.1 [facility] Comment on above: Performed By: #### L 500.4050, L100.0100, L501.9910, L500.4100 #### [facility] [address] [place], [address] Sodium [Moles/Vol] 139 mmol/L Normal 136-145 [facility] Comment on above: Performed By: #### L 500.4050, L100.0100, L501.9910, L500.4100 #### [facility] [address] [place], [address] T PROT 7.7 g/dL Normal 6.4-8.2 [facility] Comment on above: Performed By: #### L 500.4050, L100.0100, L501.9910, L500.4100 #### [facility] [address] [place], [address] Urea nitrogen [Mass/Vol] 13 mg/dL Normal 7-18 [facility] Comment on above: Performed By: #### L 500.4050, L100.0100, L501.9910, L500.4100 #### [facility] [address] [place], [address] Lipid Profileon 01-20-2024 Cholesterol [Mass/Vol] 115 mg/dL Normal 200 [facility] Comment on above: Result Comment: <200 mg/dL Desirable 200-240 mg/dL Borderline >240 mg/dL High Risk Performed By: #### L 500.4050, L100.0100, L501.9910, L500.4100 #### [facility] [address] [place], [address] Cholesterol in HDL [Mass/Vol] 62 mg/dL Normal [facility] Comment on above: Result Comment: The drugs N-Acetylcysteine and Metamizole may falsely depress this assay. Reference Range HDL <40 mg/dL Low HDL Cholesterol HDL >or= 60 mg/dL High HDL Cholesterol Performed By: #### L 500.4050, L100.0100, L501.9910, L500.4100 #### [facility] [address] [place], [address] Cholesterol in LDL [Mass/Vol] 43 mg/dL Normal 0-130 [facility] Comment on above: Performed By: #### L 500.4050, L100.0100, L501.9910, L500.4100 #### [facility] [address] [place], [address] Cholesterol in VLDL [Mass/Vol] 10 mg/dL Normal 5-40 [facility] Comment on above: Performed By: #### L 500.4050, L100.0100, L501.9910, L500.4100 #### [facility] [address] [place], [address] Triglyceride [Mass/Vol] 48 mg/dL Normal [facility] Comment on above: Result Comment: The drugs N-Acetylcysteine and Metamizole may falsely depress this assay. Serum Triglycerides Reference Interval Normal <150 mg/dL Borderline high 150 - 199 mg/dL High 200 - 499 mg/dL Very High > or = 500 mg/dL Performed By: #### L 500.4050, L100.0100, L501.9910, L500.4100 #### [facility] [address] [place], [address] PSA,Total - Annual Screenon 01-20-2024 PSA,TOT SCREEN 1.42 ng/mL Normal 0.00-4.00 [facility] Comment on above: Result Comment: This test was performed using the TPSA assay method for the [employer] chemistry system. Values obtained with different assay methods cannot be used interchangably. When changing PSA assays in the course of monitoring a patient, additional sequential testing should be carried out to confirm baseline values. Performed By: #### L 500.4050, L100.0100, L501.9910, L500.4100 #### [facility] [address] [place], [address] Absolute lymphocyte countOrd ered By: Emanuel Garland on 01-18-2023 Lymphocytes Auto (Unsp spec) [#/Vol] 1.63 10*3/uL 0.83-4.51 [facility] Basophil percentageOrdered B y: Emanuel Garland on 01-18-2023 Basophils/100 WBC (Bld) 0.8 % 0-1 [facility] Bilirubin [Mass/Vol] 0.50 mg/dL 0.20-1.00 [facility] Comment on above: For patients on eltr ombopag therapy, use of Dimension [place] TBIL is not recommended. Chloride [Moles/Vol] 105 mmol/L 98-107 [facility] Cholesterol [Mass/Vol] 106 mg/dL <200 [facility] Comment on above: <200 mg/dL Desirable 200-240 mg/dL Borderline >240 mg/dL High Risk Eosinophils/100 WBC (Bld) 2.8 % 0-5 [facility] Glucose [Mass/Vol] 98 mg/dL 74-106 [facility] Neutrophils (Bld) [#/Vol] 5.3 10*3/uL 2.0-7.7 [facility] Neutrophils/100 WBC (Bld) 68.4 % 47-70 [facility] Potassium [Moles/Vol] 4.8 mmol/L 3.5-5.1 [facility] Protein [Mass/Vol] 7.8 g/dL 6.4-8.2 [facility] Sodium [Moles/Vol] 138 mmol/L 136-145 [facility] Triglyceride [Mass/Vol] 54 mg/dL <199 [facility] Comment on above: The drugs N-Acetylcy steine and Metamizole may falsely depress this assay.Serum Triglycerides Reference Interval Normal <150 mg/dL Borderline high 150 - 199 mg/dL High 200 - 499 mg/dL Very High > or = 500 mg/dL WBC (Bld) [#/Vol] 7.8 10*3/uL 4.4-11.0 [facility] Blood erythrocytes count (nu mber/volume)Ordered By: Emanuel Garland on 01-18-2023 RBC (Bld) [#/Vol] 4.51 10*6/uL 4.6-6.2 [facility] Blood hemoglobin measurement (mass/volume)Ordered By: Emanuel Garland on 01-18-2023 Hemoglobin (Bld) [Mass/Vol] 13.3 g/dL 13.0-16.5 [facility] Blood lymphocytes/100 leukoc ytesOrdered By: Emanuel Garland on 01-18-2023 Lymphocytes/100 WBC (Bld) 21.0 % 19-41 [facility] Blood monocytes/100 leukocyt esOrdered By: Emanuel Garland on 01-18-2023 Monocytes/100 WBC (Bld) 6.7 % 0-10 [facility] Blood platelet mean volumeOr dered By: Emanuel Garland on 01-18-2023 Platelet mean volume (Bld) [Entitic vol] 10.5 fL 6.2-12.0 [facility] Determination of erythrocyte mean corpuscular volume (MCV)Ordered By: Emanuel Garland on 01-18-2023 MCV (RBC) [Entitic vol] 91.1 fL 80-94 [facility] Hematocrit Auto (Bld) [Volum e fraction]Ordered By: Emanuel Garland on 01-18-2023 Hematocrit (Bld) [Volume fraction] 41.1 % 40-54 [facility] - Chemistry and C hemistry - challengeOrdered By: Emanuel Garland on 01-18-2023 ALP [Catalytic activity/Vol] 78 U/L 45-117 [facility] ALT [Catalytic activity/Vol] 25 U/L 16-61 [facility] CO2 [Moles/Vol] 29.0 mmol/L 21.0-32.0 [facility] Globulin (S) [Mass/Vol] 4.0 g/dL 2.2-4.2 [facility] Urea nitrogen/Creatinine [Mass ratio] 13.4 mg/mg 10-20 [facility] - Hematology and Cell countsOrdered By: Emanuel Garland on 01-18-2023 Erythrocyte distribution width (RBC) [Entitic vol] 41.7 fL 35.1-43.9 [facility] Erythrocyte distribution width (RBC) [Ratio] 12.6 % 11.6-14.6 [facility] Immature granulocytes/100 WBC (Bld) 0.300 % 0.0-0.9 [facility] Comment on above: IG% - Immature Granu locytes (promyelocytes, myelocytes and metamyelocytes) > 1% indicates that a LEFT SHIFT is Present. MCH (RBC) [Entitic mass] 29.5 pg 27.0-32.0 [facility] Nucleated RBC/100 WBC (Bld) [Ratio] 0 % 0-5 [facility] MCHC Auto (RBC) [Mass/Vol]Or dered By: Emanuel Garland on 01-18-2023 MCHC (RBC) [Mass/Vol] 32.4 g/dL 32-36 [facility] No Panel InformationOrdered By: Emanuel Garland on 01-18-2023 Estimated GFR (MDRD) Amer 132 mL/min >60 [facility] Comment on above: GFR Calc Estimated GFR (MDRD) Non-Af Amer 109 mL/min >60 [facility] Comment on above: Non- GFR Calc Prostate Specific Antigen Screen 1.73 ng/mL 0.00-4.00 [facility] Comment on above: This test was perfor med using the TPSA assay method for the[facility]. Values obtained with differentassay methods cannot be used interchangably.When changing PSA assays in the course of monitoring apatient, additional sequential testing should be carriedout to confirm baseline values. Platelets bldOrdered By: Azalea Garland on 01-18-2023 Platelets (Bld) [#/Vol] 236 10*3/uL 150-450 [facility] Serum or plasma albumin caesar urement (mass/volume)Ordered By: Emanuel Garland on 01-18-2023 Albumin [Mass/Vol] 3.8 g/dL 3.2-5.0 [facility] Serum or plasma albumin/glob ulin mass ratioOrdered By: Emanuel Garland on 01-18-2023 Albumin/Globulin [Mass ratio] 1.0 {ratio} 0.9-2.4 [facility] Serum or plasma calcium caesar urement (mass/volume)Ordered By: Emanuel Garland on 01-18-2023 Calcium [Mass/Vol] 8.9 mg/dL 8.5-10.1 [facility] Serum or plasma cholesterol in HDL measurement (mass/volume)Ordered By: Emanuel Garland on 01-18-2023 Cholesterol in HDL [Mass/Vol] 62 mg/dL >40 [facility] Comment on above: The drugs N-Acetylcy steine and Metamizole may falsely depress this assay. Reference Range HDL <40 mg/dL Low HDL Cholesterol HDL >or= 60 mg/dL High HDL Cholesterol Serum or plasma cholesterol in VLDL measurement (mass/volume)Ordered By: Emanuel Garland on 01-18-2023 Cholesterol in VLDL [Mass/Vol] 11 mg/dL 5-40 [facility] Serum or plasma creatinine m easurement (mass/volume)Ordered By: Emanuel Garland on 01-18-2023 Creatinine [Mass/Vol] 0.75 mg/dL 0.70-1.30 [facility] Comment on above: The validity of the calculated GFR & GFRAA in patients over 70 years has not been determined. Clinical correlation is essential. Serum or plasma low density lipoprotein (LDL) cholesterol measurement (mass/volume)Ordered By: Emanuel Garland on 01-18-2023 Cholesterol in LDL [Mass/Vol] 33 mg/dL 0-130 [facility] Serum or plasma urea nitroge n measurement (mass/volume)Ordered By: Emanuel Garland on 01-18-2023 Urea nitrogen [Mass/Vol] 10 mg/dL 7-18 [facility] Thin prep Papanicolaou smear with manual screeningOrdered By: Emanuel Garland on 01-18-2023 Thin prep Papanicolaou smear with manual screening 20 U/L 15-37 [facility] Thin prep Papanicolaou smear with manual screening 4 5-15 [facility] XR COMPARISON IMPORTon 12-29 This order has been auto-finalized and does not contain a result. [facility] GI ESOPHAGRAMon 12-25-2019 GI ESOPHAGRAM Patient Name: MAXX FORDE STUDY: GI ESOPHAGRAM; ; 12/25/2019 9:13 am INDICATION: upper gi discomfort. COMPARISON: None. ACCESSION NUMBER(S): [id number] ORDERING CLINICIAN: ARABELLA ODEN TECHNIQUE: The patient [...] esophagus Electronically signed by: JOAQUIN HANSON MD [facility] Surgical Pathology Depar tmenton 12-21-2019 [facility] Surgical Pathology Department Name MAXX FORDE Pathologist: DANYELL STEPHENS MD Date of Procedure: 12/21/2019 Date Received: 12/22/2019 Date Reported 12/23/2019 Submitting Physician: ARABELLA ODNE DO Location: [facility] Endoscopy Copy To/Referring/Attending: DAGO MCNAMARA MD Other External # FINAL DIAGNOSIS A. DISTAL ESOPHAGUS: -- GASTRIC GLANDULAR MUCOSA WITH INTESTINAL METAPLASIA; SEE COMMENT. -- NEGATIVE FOR DYSPLASIA. 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 Electronically Signed Out By DAYNELL STEPHENS MD/FINN By the signature on this report, the individual or group listed as making the Final Interpretation/Diagnosis certifies that they have reviewed this case. Clinical History: Physician Contact Number: [id number] Fixative (A): Formalin Clinical Diagnosis History BARRETTS Specimens Submitted As: A: DISTAL ESOPHAGUS Gross Description: Received in formalin, labeled with the patient's name and hospital number and distal esophagus BX, are multiple fragments of worley, soft tissue aggregating to 1.5 x 0.2 x 0.2 cm. The specimen is submitted in toto in one cassette. SBS ssn/12/22/2019 [facility] Department of Pathology [address] [place] [address] Normal [facility] Comment on above: Performed By: #### U HCS #### [facility] Surgical Pathology Department [address] [place] [address] CORONAVIRUS 2019, SCREEN ASY MPTOMATICon 12-20-2019 CORONAVIRUS 2019,PCR NOT DETECTED Normal Not Detected [facility] Comment on above: Result Comment: [...] patient management decisions. Fact sheet for providers: https://www.fda.gov/media/024889/download Fact sheet for patients: https://www.fda.gov/media/423876/download This test has received FDA Emergency Use Authorization (EUA) and has been verified by [facility] ([facility]). This test is only authorized for the duration of time that circumstances exist to justify the authorization of the emergency use of in vitro diagnostic tests for the detection of SARS-CoV-2 virus and/or diagnosis of COVID-19 infection under section 564(b)(1) of the Act, 21 U.S.C. 360bbb-3(b)(1), unless the authorization is terminated or revoked sooner. [facility] is certified under CLIA-88 as qualified to perform high complexity testing. Testing is performed in the [facility] laboratories located at [address] [place] [address]. Performed By: #### C OVSC #### [place] [address] CORONAVIRUS 2019, SCREEN ASY MPTOMATICon 12-19-2019 Lab Specimen Source Nasal, Nasopharyngeal Normal [facility] Comment on above: Performed By: #### C OVSC #### [place] [address] CORONAVIRUS 2019, SCREEN ASY MPTOMATICon 12-10-2019 EMPLOYED IN HEALTHCARE? Unknown Normal [facility] Comment on above: Performed By: #### C OVSC #### [facility] [address] [place] [address] FIRST COVID NASAL SWAB TEST? Unknown Normal [facility] Comment on above: Performed By: #### C OVSC #### [facility] [address] [place] [address] HOSPITALIZED (OR PLANNED TO BE ADMITTED)? Unknown Normal [facility] Comment on above: Performed By: #### C OVSC #### [facility] [address] [place] [address] ICU? Unknown Normal [facility] Comment on above: Performed By: #### C OVSC #### [facility] [address] [place] [address] REQUIRED FOR PROCEDURE/SURGERY? Unknown Normal [facility] Comment on above: Performed By: #### C OVSC #### [facility] [address] [place] [address] RESIDENT IN CONGREGATE CARE SETTING? Unknown Normal [facility] Comment on above: Performed By: #### C OVSC #### [facility] [address] [place] [address] SYMPTOMATIC DEFINED BY CDC? Unknown Normal [facility] Comment on above: Performed By: #### C OVSC #### [facility] [address] EMPLOYEE? Unknown Normal [facility] Comment on above: Performed By: #### C OVSC #### [facility] [address] 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 Last EGD was Nov 25, 2017. Currently taking Pantoprazole 40 mg daily with no complaints. History of Present Illness There is seen today in routine follow-up for reflux disease and Magallon's esophagus. Last endoscopy performed November 2017. Long segment Magallon's measuring 8 cm. Experiencing no reflux symptoms [...] are negative for complaint. 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 Eyes Anicteric Sclerae . Pulmonary Auscultation of lungs: Clear. Cardiovascular Auscultation of heart: RRR without murmur. Examination of extremities for edema: Normal. Abdomen Soft, non-tender. Bowel sounds normal. No hepatomegaly or splenomegaly. Signatures Electronically signed by : Arabella Oden DO; Mar 18 2019 12:44PM EST (Author) [facility] Vital Signs Date Time Vital Sign Value Performing Clinician Facility 11-09-2024 14:39-0400 Body height 180.3 cm Solitario Arguelles MD Work Phone: [facility] 11-09-2024 14:39-0400 Body mass index (BMI) [Ratio] 21.8 kg/m2 Solitario Arguelles MD Work Phone: [facility] 11-09-2024 14:39-0400 Body weight 70.9 kg Solitario Arguelles MD Work Phone: [facility] 11-09-2024 14:39-0400 Diastolic blood pressure 82 mm[Hg] Solitario Arguelles MD Work Phone: [facility] 11-09-2024 14:39-0400 Heart rate 74 /min Solitario Arguelles MD Work Phone: [facility] 11-09-2024 14:39-0400 SaO2% (BldA) [Mass fraction] 99 % Solitario Arguelles MD Work Phone: [facility] 11-09-2024 14:39-0400 Systolic blood pressure 124 mm[Hg] Solitario Arguelles MD Work Phone: [facility] 10-20-2024 07:46-0400 Body height 180.[address] Emanuel Garland DO Work Phone: [facility] 10-20-2024 07:46-0400 Body mass index (BMI) [Ratio] 21.4 kg/m2 Dr. Emanuel Garland DO Work Phone: [facility] 10-20-2024 07:46-0400 Body weight 69.[address] Emanuel Garland DO Work Phone: [facility] 10-20-2024 07:46-0400 Diastolic blood pressure 77 mm[Hg] Dr. Emanuel Garland DO Work Phone: [facility] 10-20-2024 07:46-0400 Heart rate 58 /min Dr. Emanuel Garland DO Work Phone: [facility] 10-20-2024 07:46-0400 Respiratory rate 18 /min Dr. Emanuel Garland DO Work Phone: [facility] 10-20-2024 07:46-0400 Systolic blood pressure 120 mm[Hg] Dr. Emanuel Garland DO Work Phone: [facility] 10-19-2024 08:26-0400 Body height 180.3 cm Mercy ABRAMS Work Phone: [facility] Comment on above: taken by Kalyan 10/1910-19-2024 08:26-0400 Body mass index (BMI) [Ratio] 21.71 kg/m2 Emrcy John QUEEN-[place] Work Phone: [facility] 10-19-2024 08:26-0400 Body temperature 97.7 [degF] Mercy John QUEEN-[place] Work Phone: [facility] 10-19-2024 08:26-0400 Body weight 70.58 kg Mercy Lopez BERNICE-[place] Work Phone: [facility] Comment on above: with shoes on 10-19-2024 08:26-0400 Diastolic blood pressure 69 mm[Hg] Mercy Lopez APRN-[place]EXAND[place]A Work Phone: [facility] 10-19-2024 08:26-0400 Heart rate 70 /min Mercy Lopez APRN-[place]A Work Phone: [facility] 10-19-2024 08:26-0400 Respiratory rate 16 /min Mercy Lopez [employer]-GLASSIE Work Phone: [facility] 10-19-2024 08:26-0400 SaO2% (BldA) [Mass fraction] 97 % Mercy Lopez APRN-GLASSIE Work Phone: [facility] 10-19-2024 08:26-0400 Systolic blood pressure 120 mm[Hg] Mercy Lopez [employer]ADER-GLASSIE Work Phone: [facility] 10-14-2024 08:22-0400 Body temperature 97.39 [degF] Glenny Wade MD Work Phone: [facility] 10-14-2024 08:22-0400 Diastolic blood pressure 76 mm[Hg] Glenny Wade MD Work Phone: [facility] 10-14-2024 08:22-0400 Heart rate 89 /min Glenny Wade MD Work Phone: [facility] 10-14-2024 08:22-0400 Respiratory rate 18 /min Glenny Wade MD Work Phone: [facility] 10-14-2024 08:22-0400 SaO2% (BldA) [Mass fraction] 97 % Glenny Wade MD Work Phone: [facility] 10-14-2024 08:22-0400 Systolic blood pressure 137 mm[Hg] Glenny Wade MD Work Phone: [facility] 10-14-2024 08:00-0400 Body mass index (BMI) [Ratio] 21.86 kg/m2 Glenny Wade MD Work Phone: [facility] 10-14-2024 08:00-0400 Body weight 71.1 kg Glenny Wade MD Work Phone: [facility] 10-13-2024 00:30-0400 Body height 180.3 cm Glenny Wade MD Work Phone: [facility] 09-29-2024 11:27-0400 Body temperature 97.9 [degF] Dr. Emanuel Garland DO Work Phone: [facility] 09-29-2024 11:27-0400 Diastolic blood pressure 78 mm[Hg] Dr. Emanuel Garland DO Work Phone: [facility] 09-29-2024 11:27-0400 Heart rate 95 /min Dr. Emanuel Garland DO Work Phone: [facility] 09-29-2024 11:27-0400 Respiratory rate 16 /min Dr. Emanuel Garland DO Work Phone: [facility] 09-29-2024 11:27-0400 SaO2% (BldA) [Mass fraction] 100 % Dr. Emanuel Garland DO Work Phone: [facility] 09-29-2024 11:27-0400 Systolic blood pressure 115 mm[Hg] Dr. Emanuel Garland DO Work Phone: [facility] 09-28-2024 16:15-0400 Body mass index (BMI) [Ratio] 23.7 kg/m2 Dr. Emanuel Garland DO Work Phone: [facility] 09-28-2024 16:15-0400 Body weight 77.[address] Emanuel Garland DO Work Phone: [facility] 09-28-2024 15:22-0400 Body height 180.[address] Emanuel Garland DO Work Phone: [facility] 09-28-2024 10:58-0400 Diastolic blood pressure 65 mm[Hg] Dr. Emanuel Garland DO Work Phone: [facility] 09-28-2024 10:58-0400 Heart rate 91 /min Dr. Emanuel Garland DO Work Phone: [facility] 09-28-2024 10:58-0400 Respiratory rate 20 /min Dr. Emanuel Garland DO Work Phone: [facility] 09-28-2024 10:58-0400 Systolic blood pressure 99 mm[Hg] Dr. Emanuel Garland DO Work Phone: [facility] 09-28-2024 08:25-0400 Body mass index (BMI) [Ratio] 23 kg/m2 Dr. Emanuel Garland DO Work Phone: [facility] 09-28-2024 08:25-0400 Body temperature 97.7 [degF] Dr. Emanuel Garland DO Work Phone: [facility] 09-28-2024 08:25-0400 Body weight 74.[address] Emanuel Garland DO Work Phone: [facility] 09-28-2024 08:25-0400 SaO2% (BldA) [Mass fraction] 95 % Dr. Emanuel Garland DO Work Phone: [facility] 09-22-2024 07:52-0400 Body height 180.[address] Emanuel Garland DO Work Phone: [facility] 09-22-2024 07:52-0400 Body mass index (BMI) [Ratio] 24.3 kg/m2 Dr. Emanuel Garland DO Work Phone: [facility] 09-22-2024 07:52-0400 Body temperature 97 [degF] Dr. Emanuel Garland DO Work Phone: [facility] 09-22-2024 07:52-0400 Body weight 78.[address] Emanuel Garland DO Work Phone: [facility] 09-22-2024 07:52-0400 Diastolic blood pressure 62 mm[Hg] Dr. Emanuel Garland DO Work Phone: [facility] 09-22-2024 07:52-0400 Heart rate 75 /min Dr. Emanuel Garland DO Work Phone: [facility] 09-22-2024 07:52-0400 Respiratory rate 16 /min Dr. Emanuel Garland DO Work Phone: [facility] 09-22-2024 07:52-0400 SaO2% (BldA) [Mass fraction] 97 % Dr. Emanuel Garland DO Work Phone: [facility] 09-22-2024 07:52-0400 Systolic blood pressure 105 mm[Hg] Dr. Emanuel Garland DO Work Phone: [facility] 09-19-2024 15:57-0400 Body temperature 99.8 [degF] Dr. Emanuel Garland DO Work Phone: [facility] 09-19-2024 15:57-0400 Diastolic blood pressure 65 mm[Hg] Dr. Emanuel Garland DO Work Phone: [facility] 09-19-2024 15:57-0400 Heart rate 86 /min Dr. Emanuel Garland DO Work Phone: [facility] 09-19-2024 15:57-0400 Respiratory rate 20 /min Dr. Emanuel Garland DO Work Phone: [facility] 09-19-2024 15:57-0400 SaO2% (BldA) [Mass fraction] 96 % Dr. Emanuel Garland DO Work Phone: [facility] 09-19-2024 15:57-0400 Systolic blood pressure 112 mm[Hg] Dr. Emanuel Garland DO Work Phone: [facility] 09-19-2024 12:56-0400 Inhaled oxygen flow rate 2 L/min Dr. Emanuel Garland DO Work Phone: [facility] 09-19-2024 12:27-0400 Body height 180.[address] Emanuel Garland DO Work Phone: [facility] 09-19-2024 12:27-0400 Body mass index (BMI) [Ratio] 24.4 kg/m2 Dr. Emanuel Garland DO Work Phone: [facility] 09-19-2024 12:27-0400 Body weight 79.[address] Emanuel Garland DO Work Phone: [facility] 07-22-2024 08:29-0400 Body height 182.9 cm Abbe Wood MD Work Phone: [facility] 07-22-2024 08:29-0400 Body mass index (BMI) [Ratio] 23.45 kg/m2 Abbe Wood MD Work Phone: [facility] 07-22-2024 08:29-0400 Body weight 78.43 kg Abbe Wood MD Work Phone: [facility] 07-22-2024 08:29-0400 Diastolic blood pressure 84 mm[Hg] Abbe Wood MD Work Phone: [facility] 07-22-2024 08:29-0400 Heart rate 66 /min Abbe Wood MD Work Phone: [facility] 07-22-2024 08:29-0400 SaO2% (BldA) [Mass fraction] 98 % Abbe Wood MD Work Phone: [facility] 07-22-2024 08:29-0400 Systolic blood pressure 162 mm[Hg] Abbe Wood MD Work Phone: [facility] 04-29-2024 10:46-0400 Body height 180.3 cm Abbe Wood MD Work Phone: [facility] 04-29-2024 10:46-0400 Body mass index (BMI) [Ratio] 24.16 kg/m2 Abbe Wood MD Work Phone: [facility] 04-29-2024 10:46-0400 Body weight 78.56 kg Abbe Wood MD Work Phone: [facility] 04-29-2024 10:46-0400 Diastolic blood pressure 84 mm[Hg] Abbe Wood MD Work Phone: [facility] 04-29-2024 10:46-0400 Heart rate 56 /min Abbe Wood MD Work Phone: [facility] 04-29-2024 10:46-0400 SaO2% (BldA) [Mass fraction] 96 % Abbe Wood MD Work Phone: [facility] 04-29-2024 10:46-0400 Systolic blood pressure 152 mm[Hg] Abbe Wood MD Work Phone: [facility] 01-29-2024 07:52-0500 Body mass index (BMI) [Ratio] 24.13 kg/m2 Abbe Wood MD Work Phone: [facility] 01-29-2024 07:52-0500 Body weight 78.47 kg Abbe Wood MD Work Phone: [facility] 01-29-2024 07:52-0500 Diastolic blood pressure 90 mm[Hg] Abbe Wood MD Work Phone: [facility] 01-29-2024 07:52-0500 Heart rate 99 /min Abbe Wood MD Work Phone: [facility] 01-29-2024 07:52-0500 Systolic blood pressure 135 mm[Hg] Abbe Wood MD Work Phone: [facility] 08-14-2023 08:09-0400 Body height 180.3 cm Abbe Wood MD Work Phone: [facility] 08-14-2023 08:09-0400 Body mass index (BMI) [Ratio] 23.51 kg/m2 Abbe Wood MD Work Phone: [facility] 08-14-2023 08:09-0400 Body weight 76.48 kg Abbe Wood MD Work Phone: [facility] 08-14-2023 08:09-0400 Diastolic blood pressure 86 mm[Hg] Abbe Wood MD Work Phone: [facility] 08-14-2023 08:09-0400 Heart rate 62 /min Abbe Wood MD Work Phone: [facility] 08-14-2023 08:09-0400 SaO2% (BldA) [Mass fraction] 97 % Abbe Wood MD Work Phone: [facility] 08-14-2023 08:09-0400 Systolic blood pressure 163 mm[Hg] Abbe Wood MD Work Phone: [facility] 05-22-2023 08:16-0400 Body height 182.9 cm Abbe Wood MD Work Phone: [facility] 05-22-2023 08:16-0400 Body mass index (BMI) [Ratio] 22.53 kg/m2 Abbe Wood MD Work Phone: [facility] 05-22-2023 08:16-0400 Body weight 75.34 kg Abbe Wood MD Work Phone: [facility] 05-22-2023 08:16-0400 Diastolic blood pressure 86 mm[Hg] Abbe Wood MD Work Phone: [facility] 05-22-2023 08:16-0400 Heart rate 64 /min Abbe Wood MD Work Phone: [facility] 05-22-2023 08:16-0400 SaO2% (BldA) [Mass fraction] 97 % Abbe Wood MD Work Phone: [facility] 05-22-2023 08:16-0400 Systolic blood pressure 162 mm[Hg] Abbe Wood MD Work Phone: [facility] 12-05-2022 07:55-0400 Body mass index (BMI) [Ratio] 23.06 kg/m2 Abbe Wood MD Work Phone: [facility] 12-05-2022 07:55-0400 Body weight 77.11 kg Abbe Wood MD Work Phone: [facility] 12-05-2022 07:55-0400 Diastolic blood pressure 83 mm[Hg] Abbe Wood MD Work Phone: [facility] 12-05-2022 07:55-0400 Heart rate 64 /min Abbe Wood MD Work Phone: [facility] 12-05-2022 07:55-0400 Systolic blood pressure 159 mm[Hg] Abbe Wood MD Work Phone: [facility] 09-13-2022 08:16-0400 Body height 182.9 cm Abbe Wood MD Work Phone: [facility] 09-13-2022 08:16-0400 Body mass index (BMI) [Ratio] 23.03 kg/m2 Abbe Wood MD Work Phone: [facility] 09-13-2022 08:16-0400 Body weight 77.02 kg Abbe Wood MD Work Phone: [facility] 09-13-2022 08:16-0400 Diastolic blood pressure 89 mm[Hg] Abbe Wood MD Work Phone: [facility] 09-13-2022 08:16-0400 Heart rate 54 /min Abbe Wood MD Work Phone: [facility] 09-13-2022 08:16-0400 SaO2% (BldA) [Mass fraction] 96 % Abbe Wood MD Work Phone: [facility] 09-13-2022 08:16-0400 Systolic blood pressure 171 mm[Hg] Abbe Wood MD Work Phone: [facility] 02-07-2022 08:10-0500 Body height 182.9 cm Abbe Wood MD Work Phone: [facility] 02-07-2022 08:10-0500 Body mass index (BMI) [Ratio] 25.36 kg/m2 Abbe Wood MD Work Phone: [facility] 02-07-2022 08:10-0500 Body weight 84.82 kg Abbe Wood MD Work Phone: [facility] 02-07-2022 08:10-0500 Diastolic blood pressure 85 mm[Hg] Abbe Wood MD Work Phone: [facility] 02-07-2022 08:10-0500 Heart rate 69 /min Abbe Wood MD Work Phone: [facility] 02-07-2022 08:10-0500 SaO2% (BldA) [Mass fraction] 94 % Abbe Wood MD Work Phone: [facility] 02-07-2022 08:10-0500 Systolic blood pressure 154 mm[Hg] Abbe Wood MD Work Phone: [facility] 11-23-2021 07:43-0400 Body mass index (BMI) [Ratio] 24.68 kg/m2 Abbe Wood MD Work Phone: [facility] 11-23-2021 07:43-0400 Body weight 82.56 kg Abbe Wood MD Work Phone: [facility] 11-23-2021 07:43-0400 Diastolic blood pressure 89 mm[Hg] Abbe Wood MD Work Phone: [facility] 11-23-2021 07:43-0400 Heart rate 66 /min Abbe Wood MD Work Phone: [facility] 11-23-2021 07:43-0400 Systolic blood pressure 157 mm[Hg] Abbe Wood MD Work Phone: [facility] 10-24-2021 08:56-0400 Body height 182.9 cm Cindi Lafon GLASSIE Work Phone: [facility] 10-24-2021 08:56-0400 Body mass index (BMI) [Ratio] 23.72 kg/m2 Cindi Lafon GLASSIE Work Phone: [facility] 10-24-2021 08:56-0400 Body weight 79.33 kg Cindi Lafon GLASSIE Work Phone: [facility] 10-24-2021 08:56-0400 Diastolic blood pressure 84 mm[Hg] Cindi Lafon GLASSIE Work Phone: [facility] 10-24-2021 08:56-0400 Heart rate 61 /min Cindi Lafon GLASSIE Work Phone: [facility] 10-24-2021 08:56-0400 SaO2% (BldA) [Mass fraction] 98 % Cindi Lafon GLASSIE Work Phone: [facility] 10-24-2021 08:56-0400 Systolic blood pressure 144 mm[Hg] Cindi Don GLASSIE Work Phone: [facility] 08-16-2021 07:49-0400 Body mass index (BMI) [Ratio] 25.36 kg/m2 Abbe Wood MD Work Phone: [facility] 08-16-2021 07:49-0400 Body weight 84.82 kg Abbe Wood MD Work Phone: [facility] 08-16-2021 07:49-0400 Diastolic blood pressure 82 mm[Hg] Abbe Wood MD Work Phone: [facility] 08-16-2021 07:49-0400 Heart rate 72 /min Abbe Wood MD Work Phone: [facility] 08-16-2021 07:49-0400 Systolic blood pressure 169 mm[Hg] Abbe Wood MD Work Phone: [facility] 06-28-2021 11:31-0400 Diastolic blood pressure 76 mm[Hg] Dr. Dago Mcnamara Work Phone: [facility] Work Phone: 06-28-2021 11:31-0400 Heart rate 74 /min Dr. Dago Mcnamara Work Phone: [facility] Work Phone: 06-28-2021 11:31-0400 Systolic blood pressure 128 mm[Hg] Dr. Dago Mcnamara Work Phone: [facility] Work Phone: 06-28-2021 11:18-0400 Body height 182.[address] Dago Mcnamara Work Phone: [facility] Work Phone: 06-28-2021 11:18-0400 Body mass index (BMI) [Ratio] 25.2 kg/m2 Dr. Dago Mcnamara Work Phone: [facility] Work Phone: 06-28-2021 11:18-0400 Body weight 84.[address] Dago Mcnamara Work Phone: [facility] Work Phone: 06-28-2021 11:18-0400 Respiratory rate 16 /min Dr. Dago Mcnamara Work Phone: [facility] Work Phone: 06-28-2021 11:18-0400 SaO2% (BldA) [Mass fraction] 96 % Dr. Dago Mcnamara Work Phone: [facility] Work Phone: 05-17-2021 08:47-0400 Body height 182.9 cm Abbe Wood MD Work Phone: [facility] 05-17-2021 08:47-0400 Body mass index (BMI) [Ratio] 25.97 kg/m2 Abbe Wood MD Work Phone: [facility] 05-17-2021 08:47-0400 Body weight 86.86 kg Abbe Wood MD Work Phone: [facility] 05-17-2021 08:47-0400 Diastolic blood pressure 85 mm[Hg] Abbe Wood MD Work Phone: [facility] 05-17-2021 08:47-0400 Heart rate 76 /min Abbe Wood MD Work Phone: [facility] 05-17-2021 08:47-0400 SaO2% (BldA) [Mass fraction] 95 % Abbe Wood MD Work Phone: [facility] 05-17-2021 08:47-0400 Systolic blood pressure 162 mm[Hg] Abbe Wood MD Work Phone: [facility] 02-08-2021 08:05-0500 Body height 182.9 cm Abbe Wood MD Work Phone: [facility] 02-08-2021 08:05-0500 Body mass index (BMI) [Ratio] 26.22 kg/m2 Abbe Wood MD Work Phone: [facility] 02-08-2021 08:05-0500 Body weight 87.68 kg Abbe Wood MD Work Phone: [facility] 02-08-2021 08:05-0500 Diastolic blood pressure 92 mm[Hg] Abbe Wood MD Work Phone: [facility] 02-08-2021 08:05-0500 Heart rate 94 /min Abbe Wood MD Work Phone: [facility] 02-08-2021 08:05-0500 SaO2% (BldA) [Mass fraction] 98 % Abbe Wood MD Work Phone: [facility] 02-08-2021 08:05-0500 Systolic blood pressure 149 mm[Hg] Abbe Wood MD Work Phone: [facility] 10-21-2020 07:57-0400 Body height 182.9 cm Abbe Wood MD Work Phone: [facility] 10-21-2020 07:57-0400 Body mass index (BMI) [Ratio] 25.01 kg/m2 Abbe Wood MD Work Phone: [facility] 10-21-2020 07:57-0400 Body weight 83.64 kg Abbe Wood MD Work Phone: [facility] 10-21-2020 07:57-0400 Diastolic blood pressure 78 mm[Hg] Abbe Wood MD Work Phone: [facility] 10-21-2020 07:57-0400 Heart rate 63 /min Abbe Wood MD Work Phone: [facility] 10-21-2020 07:57-0400 SaO2% (BldA) [Mass fraction] 95 % Abbe Wood MD Work Phone: [facility] 10-21-2020 07:57-0400 Systolic blood pressure 142 mm[Hg] Abbe Wood MD Work Phone: [facility] 04-20-2020 08:32-0500 BMI (Body Mass Index) 27.1 kg/m2 [facility] 04-20-2020 08:32-0500 Body weight 90.63 kg [facility] 04-20-2020 08:32-0500 BP Diastolic 86 mm[Hg] [facility] 04-20-2020 08:32-0500 BP Systolic 139 mm[Hg] [facility] 04-20-2020 08:32-0500 Height 182.9 cm [facility] 04-20-2020 08:32-0500 Pulse (Heart Rate) 80 /min [facility] 04-20-2020 08:32-0500 Pulse Oximetry 94 % [facility] 04-05-2020 11:03-0500 Body Temperature 97.81 [degF] [facility] 04-05-2020 11:03-0500 BP Diastolic 75 mm[Hg] [facility] 04-05-2020 11:03-0500 BP Systolic 132 mm[Hg] [facility] 04-05-2020 11:03-0500 Pulse (Heart Rate) 74 /min [facility] 04-05-2020 11:03-0500 Pulse Oximetry 94 % [facility] 04-05-2020 11:03-0500 Respiratory Rate 16 /min [facility] 04-04-2020 18:21-0500 Height 182.9 cm [facility] 04-04-2020 08:49-0500 BMI (Body Mass Index) 28.14 kg/m2 [facility] 04-04-2020 08:49-0500 Body weight 94.1 kg [facility] 01-05-2020 09:30-0500 BMI (Body Mass Index) 28.21 kg/m2 [facility] 01-05-2020 09:30-0500 Body weight 94.35 kg [facility] 01-05-2020 09:30-0500 BP Diastolic 88 mm[Hg] [facility] 01-05-2020 09:30-0500 BP Systolic 149 mm[Hg] [facility] 01-05-2020 09:30-0500 Height 182.9 cm [facility] 01-05-2020 09:30-0500 Pulse (Heart Rate) 77 /min Cindi Ochoa [facility] 01-05-2020 09:30-0500 Pulse Oximetry 96 % [facility] 01-05-2020 09:30-0500 Respiratory Rate 15 /min [facility] Encounters Encounter Date Encounter Type Care Provider Facility Start: 12-25-2024 ambulatory Adolfo [facility] Facility :[facility] Start: 12-21-2024 ambulatory Emanuel [facility] Facility: [facility] Start: 12-04-2024 ambulatory [facility] Start: 12-03-2024 End: 12-03-2024 Admission to same day surgery center Cindi Ochoa GLASSIE Work Phone: [facility] Comment on above: Magallon's esophagus with dysplasia (Primary Dx); Long-segment Magallon's esophagus Start: 11-09-2024 End: 11-09-2024 Office outpatient visit 25 minutes Solitario Arguelles MD Work Phone: Infectious Diseases Care 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 Baljinder HURLEY -[facility] Work Phone: Start: 11-05-2024 End: 11-05-[address] Emanuel Garland DO Work Phone: -Tas Scan [facility] Start: 11-05-2024 End: 11-05-[address] Emanuel Garland DO Work Phone: -cat Scan [facility] Work Phone: Start: 11-05-2024 End: 11-05-2024 ambulatory Adolfo Garcia Facility:[facility] Start: 10-27-2024 ambulatory Emanuel Garland Facility: [facility] Start: 10-26-2024 ambulatory Adriana Lipscomb [employer]AR GRINDER OPERATOR HELPER Fac ility:[facility] Start: 10-22-[address] Emanuel Gill DO -Laboratory Work Phone: Start: 10-22-2024 ambulatory Emanuel Garland Facility: [facility] Start: 10-20-2024 End: 10-20-2024 Patient encounter procedure Adolfo RIVERA -[facility] Work Phone: Start: 10-20-2024 End: 10-20-[address] Emanuel Garland DO Work Phone: -[facility] Start: 10-19-2024 End: 10-19-2024 Postop follow up visit related to original px Osito Salinas MD Work Phone: Division of Thoracic Surgery at [facility] Comment on above: Empyema of lung (Jo-Ann laney Dx) Start: 10-19-2024 End: 10-19-2024 Subsequent hospital visit by physician Maria Del Rosario Suarez MD Work Phone: Imaging [facility] Comment on above: Arrived Start: 10-19-2024 ambulatory MARIA DEL ROSARIO SUAREZ Facility:[facility] Start: 10-16-2024 End: 10-16-[address] Emanuel Garland DO Work Phone: -Laboratory Start: 10-16-2024 End: 10-16-[address] Emanuel Garland DO -Laboratory Work Phone: Start: 10-16-2024 End: 10-16-2024 ambulatory Emanuel Garland Facility:[facility] Start: 10-15-2024 ambulatory ISHAN MICHEL Facility:[facility] Start: 10-14-2024 End: 10-14-2024 Documentation procedure Jing [facility] Start: 09-29-2024 End: 10-14-2024 Evaluation and management of inpatient Glenny Wade MD Work Phone: Start: 09-28-2024 End: 09-29-2024 Emergency department patient visit Dr. Emanuel Garland DO Work Phone: -Emergency Department Work Phone: Start: 09-28-2024 End: 09-28-[address] Emanuel Garland DO Work Phone: -Cat Scan [facility] Start: 09-28-2024 End: 09-28-2024 Patient encounter procedure Adriana Lipscomb SHEAR GRINDER OPERATOR HELPER-C -Cat Scan [facility] Work Phone: Start: 09-28-2024 End: 09-28-2024 ambulatory Emanuel Garland Facility:[facility] Start: 09-22-2024 End: 09-22-2024 Patient encounter procedure Adriana Lipscomb SHEAR GRINDER OPERATOR HELPER-C -[facility] Work Phone: Start: 09-22-2024 End: 09-22-[address] Emanuel Garland DO Work Phone: -[facility] Start: 09-22-2024 End: 09-22-2024 ambulatory Emanuel Garland Facility:[facility] Start: 09-19-2024 End: 09-19-2024 Emergency department patient visit Dr. Emanuel Garland DO Work Phone: -Emergency Department Work Phone: Start: 07-22-2024 End: 07-22-2024 Office outpatient visit 25 minutes Abbe Wood MD Work Phone: [facility] Comment on above: Magallon's esophagus with dysplasia (Primary Dx); Long-segment Magallon's esophagus; Status post laparoscopic Santos fundoplication Start: 07-22-2024 End: 07-22-2024 [facility] Start: 06-16-2024 End: 06-16-2024 ambulatory [facility] Start: 04-29-2024 End: 04-29-2024 Office outpatient visit 25 minutes Abbe Wood MD Work Phone: [facility] Comment on above: Long-segment Magallon 's esophagus (Primary Dx); Status post laparoscopic Santos fundoplication; Magallon's esophagus with dysplasia Start: 04-29-2024 End: 04-29-2024 ambulatory [facility] Start: 04-21-2024 End: 04-21-2024 ambulatory [facility] Facility:[facility] Start: 04-14-2024 End: 04-14-2024 ambulatory [facility] Start: 01-29-2024 End: 01-29-2024 Office outpatient visit 25 minutes Abbe Wood MD Work Phone: [facility] Comment on above: Long-segment Magallon 's esophagus (Primary Dx); Status post laparoscopic Santos fundoplication; Magallon's esophagus with dysplasia Start: 01-29-2024 End: 01-29-2024 ambulatory [facility] Start: 01-20-2024 End: 01-20-2024 ambulatory [facility] Facility:[facility] Start: 01-13-2024 End: 01-13-2024 Orders Only Cindi Ochoa GLASSIE Work Phone: [facility] Start: 08-14-2023 End: 08-14-2023 Office outpatient visit 25 minutes Abbe Wood MD Work Phone: [facility] Comment on above: Long-segment Magallon 's esophagus (Primary Dx); Status post laparoscopic Santos fundoplication; Magallon's esophagus with dysplasia Start: 08-14-2023 End: 08-14-2023 ambulatory [facility] Start: 05-22-2023 End: 05-22-2023 Office outpatient visit 25 minutes Abbe Wood MD Work Phone: [facility] Comment on above: Long-segment Magallon 's esophagus (Primary Dx); Status post laparoscopic Santso fundoplication; Magallon's esophagus with dysplasia Start: 02-06-2023 Admission to [facility] Cindi Ochoa GLASSIE Work Phone: [facility] Comment on above: Long-segment Magallon 's esophagus (Primary Dx) Start: 01-18-2023 End: 01-18-2023 ambulatory [facility] Work Phone: Start: 01-18-2023 End: 01-18-2023 Patient encounter procedure Mehul [facility] Katey [facility] Start: 12-05-2022 End: 12-05-2022 Office outpatient visit 25 minutes Abbe Wood MD Work Phone: [facility] Comment on above: Long-segment Magallon 's esophagus (Primary Dx); Status post laparoscopic Santos fundoplication Start: 11-19-2022 Orders Only Cindi Lozada sang GLASSIE Work Phone: [facility] Start: 09-13-2022 End: 09-13-2022 Office outpatient visit 25 minutes Abbe Wood MD Work Phone: [facility] Comment on above: Magallon's esophagus with dysplasia (Primary Dx); Status post laparoscopic Santos fundoplication Start: 08-30-2022 Refill Cindi Alice La sang GLASSIE Work Phone: [facility] Start: 07-31-2022 Orders Only Abbe cabello MD Work Phone: [facility] Comment on above: Magallon's esophagus with dysplasia (Primary Dx) Start: 06-20-2022 Orders Only Cindi Ailce La sang GLASSIE Work Phone: [facility] Comment on above: Magallon's esophagus with dysplasia (Primary Dx); Status post laparoscopic Santos fundoplication Start: 02-07-2022 End: 02-07-2022 Office outpatient visit 25 minutes Abbe Wood MD Work Phone: [facility] Comment on above: Magallon's esophagus with dysplasia (Primary Dx); Status post laparoscopic Santos fundoplication Start: 11-23-2021 End: 11-23-2021 Postop follow up visit related to original px Abbe Wood MD Work Phone: [facility] Comment on above: Status post laparosc opic Santos fundoplication (Primary Dx); Magallon's esophagus with dysplasia Start: 10-24-2021 Admission to [facility] Cindi Ochoa GLASSIE Work Phone: [facility] Comment on above: Magallon's esophagus with dysplasia (Primary Dx) Start: 10-24-2021 End: 10-24-2021 Postop follow up visit related to original px Cindi Ochoa GLASSIE Work Phone: [facility] Comment on above: Encounter for surgic al aftercare following surgery of digestive system (Primary Dx) Start: 10-05-2021 Preprocedural examin ation done Cindi Ochoa GLASSIE Work Phone: [facility] Work Phone: Start: 08-16-2021 End: 08-16-2021 Office outpatient visit 25 minutes Abbe Wood MD Work Phone: [facility] Comment on above: Magallon's esophagus with dysplasia (Primary Dx); Status post laparoscopic Santos fundoplication; Slipped Santos fundoplication Start: 07-18-2021 Documentation procedure Mayuri glass RN [facility] Start: 07-11-2021 Ad[facility] Cindi Ochoa GLASSIE Work Phone: [facility] Comment on above: Magallon's esophagus with dysplasia (Primary Dx) Start: 06-30-2021 Non-patient / Non-visit Dr. Gomez Work Phone: [facility] Start: 06-30-2021 End: 06-30-[address] Dago Mcnamara Work Phone: [facility] Start: 06-28-2021 End: 06-28-[address] Dago [facility]namara [facility] Start: 06-07-2021 End: 06-07-2021 Patient encounter procedure [facility] Start: 05-17-2021 End: 05-17-2021 Office outpatient visit 25 minutes Abbe Wood MD Work Phone: [facility] Comment on above: Magallon's esophagus with dysplasia (Primary Dx); Status post laparoscopic Santos fundoplication; Slipped Santos fundoplication; Hiatal hernia Start: 02-08-2021 End: 02-08-2021 Office outpatient visit 15 minutes Abbe Wood MD Work Phone: [facility] Comment on above: Magallon's esophagus with dysplasia (Primary Dx); Status post laparoscopic Santos fundoplication; Hiatal hernia Start: 01-02-2021 Orders Only Abbe cabello MD Work Phone: [facility] Comment on above: Magallon's esophagus with dysplasia Start: 12-29-[facility] Work Phone: [facility] Comment on above: History of Magallon's esophagus (Primary Dx) Start: 12-26-2020 Admission to [facility] Melodigram GLASSIE Work Phone: [facility] Comment on above: Elective surgery (Pr imary Dx) Start: 12-15-2020 Admission to [facility] GLASSIE Work Phone: [facility] Comment on above: History of Magallon's esophagus (Primary Dx); Paraesophageal hiatal hernia Start: 10-21-2020 Orders Only Abbe cabello MD Work Phone: [facility] Comment on above: Elective surgery (Pr imary Dx) Start: 10-21-2020 End: 10-21-2020 Office outpatient visit 25 minutes Abbe Wood MD Work Phone: [facility] Comment on above: History of Magallon's esophagus (Primary Dx); Status post laparoscopic Santos fundoplication Start: 04-20-2020 End: 04-20-2020 Postop follow up visit related to original px Abbe Wood Work Phone: [facility] Comment on above: Postoperative follow -up (Primary Dx); 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 Start: 04-04-2020 End: 04-05-2020 Subsequent hospital visit by physician Abbe Wood Work Phone: [facility] Comment on above: Paraesophageal hiata l hernia Start: 03-31-2020 End: 03-31-2020 Orders Only Destiny Paulino Antonino Work Phone: [facility] Start: 03-21-2020 Preprocedural examin ation gabe oWod MD Work Phone: [facility] Start: 03-08-2020 End: 03-08-2020 Orders Only Cindi Alcarazpollo Fordejordin Work Phone: [facility] Comment on above: Elective surgery (Pr imary Dx) Start: 03-07-2020 End: 03-07-2020 Admission to day surgery Cindi Jenkins Don Work Phone: [facility] Comment on above: Paraesophageal hiata l hernia (Primary Dx) Start: 01-05-2020 End: 01-05-2020 Office outpatient new 45 minutes Dago Mcnamara Work Phone: [facility] Comment on above: Paraesophageal hiata l hernia (Primary Dx); 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; Heartburn; Pharyngoesophageal dysphagia; Bloating Start: 12-30-2019 End: 12-30-2019 Subsequent hospital visit by physician Provider Not In System [facility] Comment on above: Arrived Start: 06-13-2018 End: 06-13-2018 Patient encounter procedure Lb Lyle Facility:[facility] Start: 11-25-2017 End: 11-25-2017 Patient encounter procedure Arabella Oden Facility:[facility] Procedures Date Procedure Procedure Detail Performing Clinician Start: 11-05-2024 CT of chest without contrast Dr. Emanuel Mendez DO Work Phone: Start: 10-19-2024 Radiologic exam chest 2 views Carter starkey MD Work Phone: Start: 10-14-2024 Radiologic exam chest single view Sonia solares [employer]-GLASSIE Work Phone: Start: 10-14-2024 Assay of magnesium Carter King MD Work Phone: Start: 10-13-2024 Assay of ferritin Osito Salinas MD Work Phone: Start: 10-12-2024 CARDIAC RHYTHM (SCANNED) Other Other OT Start: 10-12-2024 Assay of magnesium Carter King MD Work Phone: Start: 10-11-2024 Assay of magnesium Carter King MD Work Phone: Start: 10-11-2024 Assay of magnesium Carter King MD Work Phone: Start: 10-09-2024 Radiologic exam chest single view Lili Gordon MD Work Phone: Start: 10-09-2024 Radiologic exam chest single view Sonia solares [employer]-GLASSIE Work Phone: Start: 10-09-2024 Assay of magnesium Carter King MD Work Phone: Start: 10-08-2024 Radiologic exam chest single view Carter King MD Work Phone: Start: 10-08-2024 IP CONSULT TO SPEECH THERAPY Osito pittman MD Work Phone: Start: 10-08-2024 Radiologic exam chest single view Sonia solares [employer]CH[employer]ADER-GLASSIE Work Phone: Start: 10-08-2024 Assay of magnesium Carter King MD Work Phone: Start: 10-07-2024 Radiologic exam chest single view Dean Luong MD Work Phone: Start: 10-07-2024 Assay of magnesium Carter King MD Work Phone: Start: 10-07-2024 CBC AND ELECTRONIC DIFF Carter Oconnell Work Phone: Start: 10-07-2024 Complete blood count with white cell differential, automated Carter King MD Work Phone: Start: 10-07-2024 Oscillating positive expiratory pressure (flutter) physiotherapy Carter King MD Work Phone: Start: 10-07-2024 Basic metabolic panel calcium total Kirt Rosales MD Work Phone: Start: 10-07-2024 Hepatitis b surf antibody hbsab Kirt velasco MD Work Phone: Start: 10-07-2024 Iaad ia hiv-1 ag w/hiv-1 & hiv-2 antbdy single Kirt Rosales MD Work Phone: Start: 10-06-2024 Basic metabolic panel calcium total Carter King MD Work Phone: Start: 10-06-2024 Radiologic exam chest single view Carter King MD Work Phone: Start: 10-06-2024 End: 10-06-2024 Culture fngi mold/yeast prsmptv oth xcpt blood Maria Del Rosario Suarez MD Work Phone: Start: 10-06-2024 End: 10-06-2024 Thoracoscopy w/partial pulmonary decortication Maria Del Rosario Suarez MD Work Phone: Start: 10-06-2024 CONTINUOUS CARDIAC MONITORING STRIP Other Other Start: 10-06-2024 ABORH TYPE RECONFIRMATION Nellie Rees DO Work Phone: Start: 10-06-2024 Antibody screen Glenny Wade MD Work Phone: Start: 10-06-2024 Antibody screen MARIA DEL ROSARIO SUAREZ Comment on above: Performed By: #### ABORH, XM #### [facility] (DEFAULT) [address] [place] [address] Start: 10-06-2024 Blood typing serologic abo Carter fields MD Work Phone: Start: 10-06-2024 PREPARE TO TRANSFUSE OR RED BLOOD CELLS Carter King MD Work Phone: Start: 10-06-2024 Radiologic exam chest single view Carter King MD Work Phone: Start: 10-06-2024 Basic metabolic panel calcium total Carter King MD Work Phone: Start: 10-05-2024 Sodium serum plasma or whole blood Kirt Rosales MD Work Phone: Start: 10-05-2024 Ct thorax w/o contrast material Carter ordoñez MD Work Phone: Start: 10-05-2024 Radiologic exam chest single view Carter King MD Work Phone: Start: 10-05-2024 Creatinine blood Kitr Rosales MD Work Phone: Start: 10-04-2024 Natriuretic peptide Kirt Rosales MD Work Phone: Start: 10-04-2024 Creatinine blood Miquel Patino [facility] Start: 10-04-2024 Drug screen quantitative vancomycin Kirt Rosales MD Work Phone: Start: 10-04-2024 Radiologic exam chest single view Pati Hinton MD, PhD Work Phone: Start: 10-03-2024 Drug screen quantitative vancomycin Miquel J Patino [facility] Start: 10-03-2024 Radiologic exam chest single view Sonia B treybile [employer]GLASSIE Work Phone: Start: 10-03-2024 Creatinine blood Miquel J Patino [facility] Start: 10-02-2024 Radiologic exam chest single view Richmond Jeter MD Work Phone: Start: 10-02-2024 Radiologic exam chest single view Kirt Rosales MD Work Phone: Start: 10-02-2024 Radiologic exam chest single view Sonia B erkkaylabile [employer]GLASSIE Work Phone: Start: 10-02-2024 Creatinine blood Miquel Patino [facility] Start: 10-01-2024 Perq drainage pleura insert cath w/imaging Beatriz Brown MD Work Phone: Start: 10-01-2024 GENERAL PROCEDURE Rosales Rodriguez DO Work Phone: Start: 10-01-2024 Cul bact xcpt urine blood/stool aerobic isol Beatriz Brown MD Work Phone: Start: 10-01-2024 Echo tthrc r-t 2d w/wom-mode compl spec&colr d Tobi Banda MD Work Phone: Start: 10-01-2024 Drug screen quantitative vancomycin Dung Vo [facility] Start: 10-01-2024 Radiologic exam chest single view Richmond Jeter MD Work Phone: Start: 09-30-2024 Culture fngi mold/yeast prsmptv oth xcpt blood Tobi Banda MD Work Phone: Start: 09-30-2024 CHEST TUBE INSERTION Marcello Jeter MD Work Phone: Start: 09-30-2024 Radiologic exam chest single view hCuck Penny MD Work Phone: Start: 09-30-2024 Blood count complete automated Carter Diana gee MD Work Phone: Start: 09-30-2024 Radiologic exam chest single view Richmond Jeter MD Work Phone: Start: 09-30-2024 Iaad ia mult step method nos each organism Reynaldo Trimble MD Work Phone: Start: 09-30-2024 Sodium serum plasma or whole blood Reynaldo Trimble MD Work Phone: Start: 09-29-2024 Creatinine other source Reynaldo Trimble MD Work Phone: Start: 09-29-2024 EXTRA MICRO Reynaldo Trimble MD Work Phone: Start: 09-29-2024 Iaad ia histoplasm capsulatum Reynaldo amezquita MD Work Phone: Start: 09-29-2024 URINALYSIS REFLEX TO CULTURE Reynaldo Bocanegra om, MD Work Phone: Start: 09-29-2024 Bilirubin direct Meryl Zendejas MD Work Phone: Start: 09-29-2024 CBC AND ELECTRONIC DIFF Meryl Zendejas MD Work Phone: Start: 09-29-2024 Complete blood count with white cell differential, automated Meryl Zendejas MD Work Phone: Start: 09-28-[address] Emanuel Garland DO Work Phone: Start: 09-28-[address] Emanuel Garland DO Work Phone: Start: 09-28-[address] Emanuel keith DO Work Phone: Start: 09-28-[address] Emanuel Garland DO Work Phone: Start: 09-28-[address] Emanuel Garland DO Work Phone: Start: 09-28-2024 End: 09-28-2024 Microbial culture, body fluid Dr. Emanuel summers DO Work Phone: Start: 09-28-2024 CT of chest without contrast Dr. Emanuel Mendez DO Work Phone: Start: 09-28-2024 Blood count leukocyte wbc automated Dr. Emanuel Garland DO Work Phone: Comment on above: Previous reported result: 23.4 %Edited b y: EDIS on 09/28/24:1241 AMENDED REPORT 09/28/24 1241 BF PMN WBC% previously reported as: 23.4 % Start: 09-28-[address] Emanuel Garland DO Work Phone: Comment on above: Previous reported result: 5.849 10^3/uLE dited by: EDIS on 09/28/24:1241 AMENDED REPORT 09/28/24 1241 BF MN WBC# previously reported as: 5.849 10^3/uL Start: 09-28-[address] Mariela Garland DO Work Phone: Comment on above: Previous reported result: 1.788 10^3/uLE dited by: EDIS on 09/28/24:1241 AMENDED REPORT 09/28/24 1241 BF PMN WBC# previously reported as: 1.788 10^3/uL Previous reported re sult: 23.4 %Edited by: EDIS on 09/28/24:1241 AMENDED REPORT 09/28/24 1241 BF PMN WBC% previously reported as: 23.4 % Start: 09-28-[address] Emanuel Garland DO Work Phone: Comment on above: Test Ordered: [id number] Triglycerides, Flui dTriglycerides, Fluid 37 mg/dL CB Reference Range: Not Estab.The reference interval(s) and other method performance specificationshave not been established for this body fluid. The test result must beintegrated into the clinical context for interpretation.Performed at: [address] [id number] Director: Latrell Paiz PhD, Phone: [phone] Start: 09-28-2024 Ultrasonic guidance for thoracentesis Dr. Emanuel Garland DO Work Phone: Start: 09-28-2024 CT of chest without contrast Dr. Emanuel Mendez DO Work Phone: Start: 09-19-2024 CT angiography of chest with contrast Dr. Emanuel Garland DO Work Phone: Start: 09-19-2024 D-dimer assay, quantitative Dr. Emanuel keith DO Work Phone: Comment on above: CRITICAL VALUE CALLED TO Saleem VASQUEZ09/19 1343 Sena Perez.RESULTS READ BACK BY SAME. D-Dimer ELEVATED (>0.49): Additional studies and clinicalassessments are indicated to conclude diagnosis of:Deep Vein Thrombosis (DVT) or Pulmonary Embolism (PE) Start: 09-19-2024 Plain chest X-ray Dr. Emanuel Garland DO Work Phone: Start: 09-19-[address] Emanuel Garland DO Work Phone: Start: 04-04-2020 End: 04-04-2020 Esophagogastroduodenoscopy Abbe arellanoin Work Phone: Start: 04-04-2020 End: 04-04-2020 REPAIR HERNIA HIATAL WITH SPHINCTER AUGMENTATION ROBOTIC XI Abbe Wood Work Phone: Start: 12-30-2019 Radiographic imaging procedure External Transcribed Plan of Treatment Date Care Activity Detail Author Start: 10-14-2025 Potassium [Moles/volume] in Serum or Plasma [facility] Start: 2025 Respiratory Syncytial Virus Immunization: Risk, 60-74 Risk, or 75+ (1 - 1-dose 75+ series) Respiratory Syncytial Virus Immunization: Risk, 60-74 Risk, or 75+ (1 - 1-dose 75+ series) [facility] Start: 2025 RSV VACCINE (1 - 1-dose 75+ series) RSV VACCINE (1 - 1-dose 75+ series) [facility] Start: 2025 RSV Vaccines (1 - 1-dose 75+ series) RSV Vaccines (1 - 1-dose 75+ series) [facility] Start: 2025 [facility] Start: 01-29-2025 End: 01-29-2025 Telemedicine consultation with patient 01/29/2025 9:30 AM EST Telemedicine Infectious Diseases Care [facility] Outpatient Care [address] [place] [address] Solitario Arguelles MD [address] [place] [address] [facility] Start: 11-09-2024 End: 11-09-[address] [facility] Start: 11-09-2024 End: 11-09-2024 Patient encounter procedure 11/09/2024 3:30 PM EDT Off ice Visit Infectious Diseases Care [facility] [address] [place] [phone] Solitario Arguelles MD [address] [place] [address] 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 Expected: 11/09/2024, Expires: [facility] on above: Expected: 11/09/2024, Expires: Start: 11-05-2024 End: 11-05-2024 ambulatory Imaging Outpatient [facility] [place] Start: 11-05-2024 End: 11-05-2024 Patient encounter procedure 11/05/2024 10:45 AM EDT Appointment Imaging Outpatient [facility] [place] [address] [place] [address] Michele Thompson, FOREIGN EXCHANGE TRADER-GLASSIE [address] [place] [address] Imaging Outpatient Care [place] Start: 10-23-2024 End: 10-09-2025 XR Chest PA and Lateral [facility] Start: 10-19-2024 End: 10-19-2024 Telemedicine consultation with patient 10/19/2024 2:00 PM EDT [facility] Tele[facility] [address] [place] [id number] Pharmacy [facility] Telehealth Start: 10-19-2024 End: 10-19-2024 ambulatory Division of Thoracic Surgery at [facility] Start: 10-19-2024 End: 10-19-2024 Patient encounter procedure 10/19/2024 9:00 AM EDT Off ice Visit Division of Thoracic Surgery at [facility] [address] [place] [address] Division of Thoracic Surgery at [facility] Start: 10-12-2024 COVID-19 VACCINE () COVID-19 VACCINE () [facility] Start: 10-12-2024 COVID-19 Vaccine () COVID-19 Vaccine () [facility] Start: 10-12-2024 Influenza vaccination [facility] Start: 10-12-2024 [facility] Start: 09-29-2024 Following clinical pathway protocol [facility] Start: 09-28-2024 [facility] Start: 09-28-2024 End: 09-28-2024 [facility] Start: 09-28-2024 Anaerobic Culture Anaerobic Culture [facility] Start: 09-28-2024 Anaerobic microbial culture Anaerobic Culture [facility] Start: 09-28-2024 Bacteria identified in Blood by Culture Blood Culture [facility] Start: 09-28-2024 Blood culture Blood Culture [facility] Start: 09-28-2024 Microbial culture, body fluid Body Fluid Culture [facility] Start: 09-28-2024 Partial thromboplastin time, activated [facility] Start: 09-28-2024 Prothrombin time [facility] Start: 09-28-2024 Procedure [facility] Start: 09-28-2024 Following clinical pathway protocol [facility] Start: 09-28-2024 Catheterization of vein [facility] Start: 09-28-2024 Oxygen therapy [facility] Start: 09-28-2024 Patient discharge [facility] Start: 09-28-2024 Vital signs measurements [facility] Start: 09-19-2024 [facility] Start: 09-19-2024 [facility] Start: 10-13-2023 COVID-19 Vaccine () COVID-19 Vaccine () [facility] Start: 10-13-2023 [facility] Start: 09-24-2023 End: 09-24-2023 Admission to same day surgery center 09/24/2023 7:20 AM EDT - 09/24/2023 7:50 AM EDT [facility] [address] [place] [address] Abbe Wood MD [address] [facility] [address] [address] ESOPHAGOSCOPY WITH RFA [facility] Comment on above: ESOPHAGOSCOPY WITH RFA Start: 09-24-2023 End: 09-24-2023 ESOPHAGOSCOPY ESOPHAGOSCOPY Long-segment Magallon's esophagus Status post laparoscopic Santos fundoplication Magallon's esophagus with dysplasia 09/24/2023 7:20 AM EDT [facility] Start: 09-24-2023 Subsequent hospital visit by physician 09/24/2023 7:20 AM EDT Hospital Encounter [facility] [address] [facility] [place] [address] Abbe Wood MD [address] [address] [facility] Start: 07-09-2023 End: 07-09-2023 Admission to same day surgery center 07/09/2023 7:25 AM EDT - 07/09/2023 7:55 AM EDT [facility] [address] [facility] [address] Abbe Wood MD [address] [address] ESOPHAGOSCOPY WITH RFA [facility] Comment on above: ESOPHAGOSCOPY WITH RFA Start: 07-09-2023 End: 07-09-2023 ESOPHAGOSCOPY ESOPHAGOSCOPY Long-segment Magallon's esophagus Status post laparoscopic Santos fundoplication Magallon's esophagus with dysplasia 07/09/2023 7:25 AM EDT [facility] Start: 07-09-2023 Subsequent hospital visit by physician 07/09/2023 7:25 AM EDT Hospital Encounter [facility]oscopy [address] [place] [address] Abbe Wood MD [address] [facility] [address] [place] [address] [facility] Start: 04-16-2023 End: 04-16-2023 Admission to same day surgery center 04/16/2023 7:20 AM EST - 04/16/2023 7:50 AM EST Surgery [facility] [address] [facility] [place] [address] Abeb Wood MD [address] [address] ESOPHAGOSCOPY WITH RFA [facility] Comment on above: ESOPHAGOSCOPY WITH RFA Start: 04-16-2023 End: 04-16-2023 ESOPHAGOSCOPY ESOPHAGOSCOPY Long-segment Magallon's esophagus 04/16/2023 7:20 AM EST [facility] Start: 04-16-2023 Subsequent hospital visit by physician 04/16/2023 7:20 AM EST Hospital Encounter [facility] Endoscopy [address] [place] [address] Abbe Wood MD [address] [facility] [address] [address] [facility] Start: 01-08-2023 Subsequent hospital visit by physician 01/08/2023 Hospital Encounter [facility] [address] [facility] [address] Abbe Wood MD [address] [address] [facility] Start: 12-05-2022 End: 12-05-2022 Patient encounter procedure 12/05/2022 8:00 AM EDT Off ice Visit [facility] [address] [facility] Medical Office Building, 5th [place] [address] Abbe Wood MD [address] [facility] [address] [place] [address] [facility] Start: 10-16-2022 End: 10-16-2022 Admission to same day surgery center 10/16/2022 7:25 AM EDT - 10/16/2022 7:55 AM EDT Surgery [facility] [address] [place] [address] Abbe Wood MD [address] [address] ESOPHAGOSCOPY WITH RFA [facility] Comment on above: ESOPHAGOSCOPY WITH RFA Start: 10-16-2022 End: 10-16-2022 ESOPHAGOSCOPY ESOPHAGOSCOPY Magallon's esophagus with dysplasia Status post laparoscopic Santos fundoplication 10/16/2022 7:25 AM EDT [facility] Start: 10-16-2022 Subsequent hospital visit by physician [facility] Start: 10-12-2022 COVID-19 Vaccine ( season) COVID-19 Vaccine ( season) [facility] Start: 10-12-2022 Influenza vaccination Sequential Influenza Vaccine (#1) [facility] Start: 09-13-2022 End: 09-13-2022 Patient encounter procedure 09/13/2022 8:30 AM EDT Off ice Visit [facility] Heartburn [facility] [address] Medical Office Building, 5th [place] [address] Abbe Wood MD [address] [address] [facility] Start: 04-17-2022 Subsequent hospital visit by physician 04/17/2022 Hospital Encounter Abbe Wood MD [address] [facility] [address] [place] [address] [facility] Start: 12-14-2021 End: 12-14-2021 ESOPHAGOSCOPY ESOPHAGOSCOPY Magallon's esophagus with dysplasia 12/14/2021 11:36 AM EDT [facility] Start: 11-23-2021 End: 11-23-2021 Patient encounter procedure 11/23/2021 Office Visit Abbe Willis MD [address] [place] [address] [facility] Start: 10-12-2021 Influenza vaccination Sequential Influenza Vaccine (#1) [facility] Start: 08-30-2021 End: 08-30-2021 Patient encounter procedure 08/30/2021 Office Visit Abbe Willis MD [address] [place] [address] [facility] Start: 08-16-2021 End: 08-16-2021 Patient encounter procedure 08/16/2021 Office Visit Abbe Willis MD [address] [place] [address] [facility] Start: 07-18-2021 End: 07-18-2021 Admission to same day surgery center 07/18/2021 Surgery Abbe Wood MD [address] [place] [address] ESOPHAGOSCOPY WITH RFA [facility] Comment on above: ESOPHAGOSCOPY WITH RFA Start: 07-18-2021 Subsequent hospital visit by physician 07/18/2021 Hospital Encounter Abbe Wood MD [address] [place] [address] [facility] Start: 07-18-2021 End: 07-18-2021 ESOPHAGOSCOPY [facility] Start: 07-04-2021 End: 07-04-2021 Admission to same day surgery center 07/04/2021 Surgery Abbe Wood MD [address] [place] [address] ESOPHAGOSCOPY WITH RFA [facility] Comment on above: ESOPHAGOSCOPY WITH RFA Start: 07-04-2021 End: 07-04-2021 ESOPHAGOSCOPY ESOPHAGOSCOPY Magallon's esophagus with dysplasia Status post laparoscopic Santos fundoplication Slipped Santos fundoplication Hiatal hernia 07/04/2021 7:25 AM EDT [facility] Start: 07-04-2021 Subsequent hospital visit by physician 07/04/2021 Hospital Encounter Abbe Wood MD [address] [place] [address] [facility] Start: 05-01-2021 End: 05-01-2021 Admission to same day surgery center 05/01/2021 Surgery Abbe Wood MD [address] [place] [address] ESOPHAGOSCOPY WITH RFA [facility] Comment on above: ESOPHAGOSCOPY WITH RFA Start: 05-01-2021 End: 05-01-2021 ESOPHAGOSCOPY ESOPHAGOSCOPY Magallon's esophagus with dysplasia Status post laparoscopic Santos fundoplication Hiatal hernia 05/01/2021 1:55 PM EDT [facility] Start: 05-01-2021 Subsequent hospital visit by physician 05/01/2021 Hospital Encounter Abbe Wood MD [address] [place] [address] [facility] Start: 03-23-2021 Administration of herpes zoster vaccine Zoster Vaccines (2 of 2) [facility] Start: 03-15-2021 COVID-19 Vaccine (5 - Booster for Moderna series) COVID-19 Vaccine (5 - Booster for Moderna series) [facility] Start: 03-15-2021 COVID-19 Vaccine (5 - Booster) COVID-19 Vaccine (5 - Booster) [facility] Start: 03-15-2021 COVID-19 Vaccine (5 - Moderna series) COVID-19 Vaccine (5 - Moderna series) [facility] Start: 02-08-2021 End: 02-08-2021 Patient encounter procedure 02/08/2021 Office Visit Heartburn Abbe Wood MD [address] [place] [address] [facility] Start: 01-09-2021 Subsequent hospital visit by physician 01/09/2021 Hospital Encounter Abbe Wood MD [address] [place] [address] [facility] Start: 01-02-2021 End: 01-02-2021 Admission to same day surgery center 01/02/2021 Surgery Abbe Wood MD [address] [place] [address] ESOPHAGOSCOPY WITH RFA [facility] Comment on above: ESOPHAGOSCOPY WITH RFA Start: 01-02-2021 End: 01-02-2021 ESOPHAGOSCOPY ESOPHAGOSCOPY History of Magallon's esophagus 01/02/2021 10:55 AM EST [facility] Start: 01-02-2021 Subsequent hospital visit by physician 01/02/2021 Hospital Encounter Abbe Wood MD [address] [place] [address] [facility] Start: 01-02-2021 End: 01-02-2021 Admission to same day surgery center 01/02/2021 Surgery Abbe Wood MD [address] [place] [address] ROBOTIC REDO HIATAL HERNIA WITH MESH AND REDO SANTOS FUNDOPLICATION [facility] Comment on above: ROBOTIC REDO HIATAL HERNIA WITH MESH AND REDO SANTOS FUNDOPLICATION Start: 01-02-2021 End: 01-02-2021 SANTOS FUNDOPLICATION ROBOTIC XI SANTOS FUNDOPLICATION ROBOTIC XI History of Magallon's esophagus Paraesophageal hiatal hernia 01/02/2021 7:20 AM [facility] Main OR Start: 01-02-2021 Subsequent hospital visit by physician 01/02/2021 Hospital Encounter Abbe Wood MD [address] [place] [address] [facility] Start: 12-28-2020 End: 12-28-2020 Patient encounter procedure 12/28/2020 Office Visit Heartburn Abbe Wood MD [address] [place] [address] [facility] Start: 12-27-2020 End: 12-27-2020 Admission to same day surgery center 12/27/2020 Surgery Abbe Wood MD [address] [place] [address] ESOPHAGOGASTRODUODENOSCOPY WITH BIOPSY [facility] Comment on above: ESOPHAGOGASTRODUODENOSCOPY WITH BIOPSY Start: 12-27-2020 End: 12-27-2020 Esophagogastroduodenoscopy ESOPHAGOGASTRODUODENOSCOPY Elective surgery 12/27/2020 12:55 PM [facility] Start: 12-27-2020 Subsequent hospital visit by physician 12/27/2020 Hospital Encounter Abbe Wood MD [address] [place] [address] [facility] Start: 12-15-2020 End: 12-15-2020 Admission to same day surgery center 12/15/2020 Surgery Abbe Wood MD [address] [place] [address] ESOPHAGOGASTRODUODENOSCOPY WITH BIOPSY [facility] Comment on above: ESOPHAGOGASTRODUODENOSCOPY WITH BIOPSY Start: 12-15-2020 End: 12-15-2020 Esophagogastroduodenoscopy ESOPHAGOGASTRODUODENOSCOPY History of Magallon's esophagus Status post laparoscopic Santos fundoplication 12/15/2020 2:25 PM EDT [facility] Start: 12-15-2020 Subsequent hospital visit by physician 12/15/2020 Hospital Encounter Abbe Wood MD [address] [place] [address] [facility] Start: 12-15-2020 End: 12-15-2020 Esophagogastroduodenoscopy ESOPHAGOGASTRODUODENOSCOPY History of Magallon's esophagus Status post laparoscopic Santos fundoplication Slipped Santos fundoplication Hiatal hernia Esophagitis 12/15/2020 12:36 PM EDT [facility] Start: 11-11-2020 End: 11-11-2020 Admission to same day surgery center 11/11/2020 Surgery Abbe Wood MD [address] [place] [address] ESOPHAGOGASTRODUODENOSCOPY WITH BIOPSY [facility] Comment on above: ESOPHAGOGASTRODUODENOSCOPY WITH BIOPSY Start: 11-11-2020 End: 11-11-2020 Esophagogastroduodenoscopy ESOPHAGOGASTRODUODENOSCOPY History of Magallon's esophagus Status post laparoscopic Santos fundoplication 11/11/2020 9:25 AM EDT [facility] Start: 11-11-2020 Subsequent hospital visit by physician 11/11/2020 Hospital Encounter Abbe Wood MD [address] [place] [address] [facility] Start: 11-10-2020 COVID-19 Vaccine (3 - Booster for Moderna series) COVID-19 Vaccine (3 - Booster for Moderna series) [facility] Start: 11-07-2020 End: 11-07-2020 Patient encounter procedure 11/07/2020 Office Visit Abbe Mathis MD [address] [place] [address] [facility] Start: 10-21-2020 End: 10-21-2020 Office Visit 10/21/2020 Office Visit Abbe Willis MD [address] [place] [address] [phone] [facility] Start: 10-12-2020 Influenza vaccination Sequential Influenza Vaccine (#1) [facility] Start: 04-20-2020 End: 04-20-2020 Office Visit 04/20/2020 Office Visit Abbe Willis MD [address] [place] [address] [phone] [facility] Heartburn [facility] Start: 04-04-2020 End: 04-04-2020 Hospital Encounter [facility] Comment on above: REPAIR HERNIA HIATAL WITH LINX SPHINCTER AUGMENTATION ROBOTIC XI Start: 03-31-2020 End: 03-31-2020 Office Visit 03/31/2020 Office Visit Lab Cindi Ochoa CNP [address] [place] [address] [phone] [facility] Start: 03-21-2020 End: 03-21-2020 Office Visit 03/21/2020 Office Visit Pre-Admission Testing [facility] Preadmission Testing Start: 01-28-2020 End: 01-28-2020 Hospital Encounter [facility] Comment on above: 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; Paraesophageal hiatal hernia; Heartburn; Pharyngoesophageal dysphagia; Bloating REPAIR HERNIA HIATAL WITH LINX SPHINCTER AUGMENTATION ROBOTIC XI Start: 01-24-2020 End: 01-24-2020 Office Visit 01/24/2020 Office Visit Lab Cindi Ochoa CNP [address] [place] [address] [phone] [facility] Start: 01-19-2020 End: 01-19-2020 Office Visit 01/19/2020 Office Visit Pre-Admission Testing [facility] Preadmission Testing Start: 01-06-2020 End: 01-06-2020 Office Visit 01/06/2020 [facility] Dago Mcnamara MD [address] [place] [address] [phone] Cindi Ochoa, GLASSIE [address] [facility] [address] [place] [address] [phone] [facility] Start: 06-11-2017 Pneumococcal vaccination [facility] Start: 06-11-2017 Pneumococcal Vaccine: 50+ Years (2 of 2 - PCV) Pneumococcal Vaccine: 50+ Years (2 of 2 - PCV) [facility] Start: 06-11-2017 Pneumococcal Vaccine: Age 50+ (2 of 2 - PCV) Pneumococcal Vaccine: Age 50+ (2 of 2 - PCV) [facility] Start: 06-11-2017 Pneumococcal Vaccine: Age 65+ (2 - PCV) Pneumococcal Vaccine: Age 65+ (2 - PCV) [facility] Start: 06-11-2017 Pneumococcal Vaccine: Age 65+ (2 of 2 - PCV) Pneumococcal Vaccine: Age 65+ (2 of 2 - PCV) [facility] Start: 2015 Abdominal aortic aneurysm screening [facility] Start: 2015 Fall risk assessment Falls Risk Assessment [facility] Start: 2015 Pneumococcal Vaccine: Age 65+ (1 of 1 - PPSV23) Pneumococcal Vaccine: Age 65+ (1 of 1 - PPSV23) [facility] Start: 2010 RSV VACCINE (1 - Risk 60-74 years 1-dose series) RSV VACCINE (1 - Risk 60-74 years 1-dose series) [facility] Start: 02-29-2000 Administration of herpes zoster vaccine Zoster Vaccines (1 of 2) [facility] Start: 02-29-2000 Screening for malignant neoplasm of colon [facility] Start: 1995 Screening for malignant neoplasm of colon [facility] Start: 1990 Lipid panel [facility] Start: 1969 Third diphtheria, tetanus and acellular pertussis (DTaP) vaccination [facility] Start: 1969 Vaccination for diphtheria, pertussis, and tetanus Tetanus/Diphtheria/Pertussis (1 - Tdap) [facility] Start: 02-29-1968 Hepatitis C antibody, confirmatory test Hepatitis C Screening [facility] Start: 02-29-1968 Hepatitis C screening Hepatitis C Screening [facility] Start: 1966 COVID-19 Vaccine (1 of 2) COVID-19 Vaccine (1 of 2) [facility] Start: 1962 Adolescent depression screening assessment Depression Screening (PHQ9) [facility] Start: 1962 COVID-19 Vaccine (1) COVID-19 Vaccine (1) [facility] Start: 1962 Depression screening using PHQ-9 (Patient Health Questionnaire 9) score [facility] Start: 1953 History and physical examination, annual for health maintenance Wellness Visit [facility] Start: 1953 Medicare Wellness Visit Medicare Wellness Visit [facility] Start: 1950 Fall risk assessment Falls Risk Assessment [facility] Start: 1950 Prostate specific antigen measurement PSA Level [facility] Start: 1950 Screening for malignant neoplasm of colon [facility] Start: 1950 Tetanus vaccination [facility] 24 Hour ECG [facility] ANAEROBE CULTURE U [facility] Bacteria identified in Unspecified specimen by Anaerobe culture [facility] CBC W Auto Different ial panel - Blood [facility] Comprehensive metabo lic 2000 panel - Serum or Plasma [facility] End: 03-08-2021 Covid-19/Influenza Order Algorithm : COVID-19 Lab Test Only (OP in UTM) Covid-19/Influenza Order Algorithm : COVID-19 Lab Test Only (OP in UTM) Microbiology Routine Elective surgery 1 Occurrences starting 03/08/2020 until 03/08/2021 [facility] Comment on above: 1 Occurrences starting 03/08/2020 until 03/08/2021 Cytology report of B jayla fluid Cyto stain [facility] ESOPHAGOSCOPY ESOPHAGOSCOPY Ba rrett's esophagus with dysplasia Status post laparoscopic Santos fundoplication Slipped Santos fundoplication [facility] ESOPHAGOSCOPY ESOPHAGOSCOPY Ba rrett's esophagus with dysplasia [facility] ESOPHAGOSCOPY ESOPHAGOSCOPY Ba rrett's esophagus with dysplasia Status post laparoscopic Santos fundoplication [facility] ESOPHAGOSCOPY [facility] Esophagoscopy flexib le transoral diagnostic ESOPHAGOSCOPY Long-segment Magallon's esophagus Status post laparoscopic Santos fundoplication Magallon's esophagus with dysplasia [facility] Esophagoscopy flexib le transoral diagnostic ESOPHAGOSCOPY Long-segment Magallon's esophagus Status post laparoscopic Santos fundoplication Magallon's esophagus with dysplasia [facility] Esophagoscopy flexib le transoral diagnostic ESOPHAGOSCOPY Magallon's esophagus with dysplasia Long-segment Magallon's esophagus Status post laparoscopic Santos fundoplication [facility] Esophagoscopy flexib le transoral diagnostic ESOPHAGOSCOPY Magallon's esophagus with dysplasia Long-segment Magallon's esophagus [facility] Fungus identified in Unspecified specimen by Culture [facility] Fungus identified in Unspecified specimen by Culture [facility] Lipid 1996 panel - S marti or Plasma [facility] Measurement of respi ratory function [facility] Mycobacterium sp torrey ntified in Unspecified specimen by Organism specific culture [facility] Mycobacterium sp torrey ntified in Unspecified specimen by Organism specific culture [facility] SANTOS FUNDOPLICATIO N ROBOTIC XI SANTOS FUNDOPLICATION ROBOTIC XI History of Magallon's esophagus Paraesophageal hiatal hernia [facility] Main OR Partial thromboplast in time, activated [facility] Partial thromboplast in time, activated [facility] Patient Education [facility] Work Phone: Platelets [#/volume] in Blood [facility] Prothrombin time [facility] Prothrombin time [facility] End: 10-21-2021 SARS-CoV-2 (COVID-19) RdRp gene [Presence] in Respiratory specimen by BENJAMIN with probe detection COVID-19, Molecular Microbiology Routine Elective surgery 1 Occurrences starting 10/21/2020 until 10/21/2021 [facility] Work Phone: Comment on above: 1 Occurrences starting 10/21/2020 until 10/21/2021 [facility] Immunizations Immunization Date Immunization Notes Care Provider Fa cility 01-15-2022 influenza virus vacc ine, unspecified formulation Abbe Wood MD Work Phone: [facility] 05-10-2020 Moderna SARS-CoV-2 Vaccination Abbe Wood MD Work Phone: [facility] 04-13-2020 Moderna SARS-CoV-2 Vaccination Abbe Wood MD Work Phone: [facility] Payers Date Payer Category Payer Managed Care (unspecified) [id number] 2024 Self-pay [id number] 2020 Miscellaneous or Other 1.2.8 [id number]. [id number] 2020 Unknown [id number] 2017 Unknown 2015 Medicare 2015 Medicare [id number]. [id number] 2015 Medicare [id number] 2013 Unknown [id number] 1950 Unknown [id number] 2.16.840.1.284786.3.579.2.717 1950 Unknown [id number] 2.16.840.1.548313.3.579.2.717 1950 Unknown [id number] 2.16.840.1.954490.3.579.2.900 1950 Unknown [id number] 2.16.840.1.350760.3.579.2.903 1950 Unknown [id number] 2.16.840.1.489348.3.579.2.903 1950 Unknown [id number] 2.16.840.1.473800.3.579.2.903 1950 Unknown [id number] 2.16.840.1.280774.3.579.2.903 1950 Unknown [id number] 2.16.840.1.037624.3.579.2.594 1950 Unknown [id number] 2.16.840.1.601703.3.579.2.594 1950 Unknown [id number] 2.16.840.1.607561.3.579.2.594 1950 Unknown [id number] 2.16.840.1.069877.3.579.2.594 1950 Unknown [id number] 2.16.840.1.813881.3.579.2.594 1950 Unknown [id number] 2.16.840.1.220098.3.579.2.903 1950 Unknown [id number] 2.16.840.1.132540.3.579.2.903 1950 Unknown [id number] 2..840.1.052548.3.579.2.903 1950 Unknown [id number] 2.16.840.1.634520.3.579.2.903 Unknown [id number] 1.2.840.712391.1.13.385.2.7.3. 375343.315 Unknown [facility] [id number] Unknown [id number] Unknown [id number] 2.16.840.1.570872.3.579.2.462 Unknown [id number] 2.16.840.1.523031.3.579.2.462 Unknown [id number] 2.16.840.1.894574.3.579.2.462 Unknown [id number] 2.16.840.1.439880.3.579.2.462 Unknown [id number] 2.16.840.1.778200.3.579.2.462 Unknown [id number] 2.16.840.1.665162.3.579.2.462 Unknown [id number] 2.16.840.1.973750.3.579.2.462 Unknown [id number] 2.16.840.1.961712.3.579.2.462 Unknown [id number] 2.16.840.1.492882.3.579.2.462 Unknown [id number] 2.16.840.1.744145.3.579.2.462 Unknown [id number] 2.16.840.1.441148.3.579.2.462 Unknown [id number] 2.16.840.1.525719.3.579.2.462 Unknown [id number] 2.16.840.1.228967.3.579.2.462 Unknown [id number] 2.16.840.1.765918.3.579.2.462 Unknown [id number] 2.16.840.1.205712.3.579.2.462 Unknown [id number] 2.16.840.1.360584.3.579.2.462 Unknown [id number] 2.16.840.1.057213.3.579.2.462 Unknown [id number] 2.16.840.1.577020.3.579.2.462 Unknown [id number] 2.16.840.1.334993.3.579.2.462 Unknown [id number] 2.16840.1.563043.3.579.2.462 Social History Date Type Detail Facility [facility] Start: 1950 Sex Assigned At Not on file [facility] Start: 01-05-2020 End: 09-27-2021 Tobacco smoking status TXIS Never smoker [facility] Start: 01-05-2020 End: 09-27-2021 Tobacco use and exposure Never used [facility] Start: 05-04-2021 End: 06-19-2022 Exposure to SARS-CoV-2 (event) Not sure [facility] Start: 03-21-2020 End: 07-22-2024 Alcohol intake Current drinker of alcohol (finding) [facility] Start: 03-21-2020 Alcohol Comment OCCAS [facility] Start: 12-26-2020 History SDOH Alcohol Comment OCCAS - one drink 2 to 3 times a week [facility] Start: 02-13-2017 End: 02-08-2022 Tobacco smoking status NHIS Unknown if ever smoked [facility] Start: 1950 Sex Assigned At Male [facility] Start: 01-05-2020 End: 07-22-2024 Cigarette pack-years [facility] Start: 06-20-2022 End: 07-22-2024 Tobacco use panel [facility] Start: 01-05-2020 Gender identity Identifies as male gender (finding) [facility] Start: 01-05-2020 Sexual orientation Heterosexual (finding) [facility] Within the past 12 months, did you worry that your food would run out before you got money to buy more? No [facility] Start: 09-28-2024 Sex Male (finding) [facility] Start: 10-19-2024 End: 11-09-2024 Alcoholic beverage intake Ex-drinker (finding) [facility] Do you feel stress - tense, restless, nervous, or anxious, or unable to sleep at night because your mind is troubled all the time - these days [OSQ] Not at all [facility] Medical Equipment Procedure Code Equipment Code Equipment Origin al Text Equipment Identifier Dates Mesh 7 X 10cm Resorbable Phasix St - Sna [id number], [id number] FDA Start: 04-04-2020 Tacker 5mm Singl e Use Absorbatack 30x W/30 Tacks - Sna [id number], [id number] FDA Start: 04-04-2020 MESH,VENTLEX ST ,LG 8CM FDA Start: 01-31-2017 TACKER,SECURE STRAP FDA Start : 01-31-2017 MESH,VENTLEX ST ,LG 8CM FDA Start: 01-31-2017 TACKER,SECURE STRAP FDA Start : 01-31-2017 Mesh 7 X 10cm Resorbable Phasix St - Sna [id number], [id number] FDA Start: 10-09-2021 MESH,VENTLEX ST ,LG 8CM [...] 01-31-2017 TACKER,SECURE STRAP FDA Start : 01-31-2017 Functional Status Date Assessment Result Facility 09-29-2024 Are you deaf, or do you have serious difficulty hearing No [facility] 09-29-2024 Are you blind, or do you have serious difficulty seeing, even when wearing glasses No [facility] 09-29-2024 Do you have serious difficulty walking or climbing stairs No [facility] 09-29-2024 Do you have difficul ty dressing or bathing No [facility] 09-29-2024 Because of a physica l, mental, or emotional condition, do you have difficulty doing errands alone such as visiting a physician's office or shopping No [facility] Mental Status Date Assessment Result Facility 09-29-2024 Because of a physica l, mental, or emotional condition, do you have serious difficulty concentrating, remembering, or making decisions No [facility] 09-28-2024 Cognitive function Voice/Name [facility] Work Phone: 09-28-2024 Cognitive function Level Of Cons ciousness Awake;Alert [facility] Work Phone: 09-19-2024 Cognitive function Voice/Name [facility] Work Phone: Clinical Notes 10-21-2020 to 11-09-2024 Solitario Arguelles MD - 11/09/2024 3:30 PM EDTSaiddiana Deng - 11/09/2024 3:30 PM EDALIZA Louis - 10/19/2024 9:00 AM EDTPatient InstructionsAustin Reyes - 10/14/2024 12:04 PM EDT Note Date & Type Note Facility 11-09-2024 History of Presen t illness Narrative Images from the original note were not included. Infectious Disease Clinic Follow-Up IDENTIFYING INFORMATION PATIENT: Maxx Forde REFERRING PROVIDER: Solitario Arguelles MD TODAY'S DATE: 11/09/2024 REASON FOR CONSULT/FOLLOW-UP Hospital follow-up; Empyema/Pulmonary actinomyces HISTORY OF PRESENT ILLNESS Maxx Forde is a 74 y.o. male with recent admission from 09/29-10/14/2024 for complicated empyema who presents to the Infectious Disease clinic today for follow-up. Previous History Admitted 09/29-10/14/2024 following transfer from [facility] with preceding thoracentesis and repeat at [facility] yielding polymicrobial growth, including Streptococcus spp and anaerobes. Prior to onset of symptoms, he had EGD for known Magallon's esophagus that was complicated by post-procedural emesis and presumed aspiration upon discussion with family and patient. 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 Initially, he received vancomycin and piperacillin-tazobactam with consolidation to ampicillin-sulbactam based on culture results. On 10/06/2024, he underwent VATS with thoracic surgery and removal of final chest tube on 10/09/2024. He was continued on ampicillin-sulbactam through admission with transition to po amoxicillin-clavulanate 875-125mg twice daily on discharge. Interim History Recent imaging obtained on 11/05/2024 at [facility] with ongoing improvement in CT chest findings on therapy. Today, he reports feeling much improved since discharge. He is often walking at least 1 mile (sometimes 2 miles) at the local track several times per week without feeling short of breath. He feels his energy level has improved, weight is up a few lbs since discharge. He denies any fevers, chills, night sweats, chest pain, or cough. Tolerating the antibiotic without any nausea, vomiting, or diarrhea. Planning to go to [place] for Feb-Mar, possibly leaving just after [place]. They are okay with repeat imaging/follow-up prior to the holidays to determine ongoing treatment duration. REVIEW OF SYSTEMS Unremarkable unless noted in the HPI. PAST MEDICAL, SURGICAL, FAMILY, and SOCIAL HISTORY As reviewed in the electronic medical record. MEDICATIONS As reviewed in the electronic medical record. PHYSICAL EXAM Vitals: 11/09/24 1439 BP: 124/82 Pulse: 74 SpO2: 99% Physical Exam Constitutional: General: He is not in acute distress. Appearance: He is not ill-appearing. Cardiovascular: Rate and Rhythm: Normal rate and regular rhythm. Heart sounds: Normal heart sounds. Pulmonary: Effort: Pulmonary effort is normal. No respiratory distress. Breath sounds: Normal breath sounds. Comments: Slightly diminished over the left base compared right base. No crackles or rhonchi. Skin: General: Skin is warm. Neurological: Mental Status: He is alert. Mental status is at baseline. Psychiatric: Mood and Affect: Mood normal. RECENT LABORATORY RESULTS As reviewed in the electronic medical record. Notable results include: Microbiologic Data (personally reviewed and/or interpreted) Pleural Fluid, Thoracentesis (09/28/2024, [facility]): Streptococcus intermedius, Parvimonas micra, Fusobacterium nucleatum, Schallia canis, & anaerobic cocci Gram stain: GPCs and GPBs Cytology: Acute inflammation, no malignant cells. Pleural Fluid, Thoracentesis/Catheter (09/30/2024, 10/01/2024): Streptococcus intermedius, Parvimonas micra, Fusobacterium nucleatum Left Lung BAL, OR A (10/06/2024): No growth AFB culture: Smear negative, culture no growth to date Left Pleural Abscess, OR B (10/06/2024): No growth AFB culture: Smear negative, culture no growth to date HIV (10/07/2024): Negative Chronic Hepatitis (10/07/2024): Non-immune to Hepatitis B Urine/serum Histo (09/29/2024, 09/30/2024): Negative Imaging (personally reviewed and/or interpreted) CT Chest (09/28/2024, [facility]): Large multiloculated left pleural fluid collection with small pericardial effusion. CT Chest (10/05/2024): New placement of left thoracostomy tube was placed in the lower pleural space. Significantly decreased size of the left pleural effusion with new small left pneumothorax and subsequently improved left lung atelectasis. Stable right upper lobe 4 cm thin-walled cyst. CT Chest (11/05/2024, [facility]): Significant improvement in previous effusion/consolidation with residual posterior left lower lobe effusion/atelectasis. ASSESSMENT & PLAN Maxx Forde is a 74 y.o. male with recent admission from 09/29-10/14/2024 for complicated empyema who presents to the Infectious Disease clinic today for follow-up. Assessment Maxx Forde is a 74 y.o. male with left empyema s/p thoracentesis and chest tube placement with subsequent VATS on 10/06/2024. 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 Of note, he has a history of Magallon's esophagus with last EGD in June 2024 with post-procedure emesis and possible aspiration, which is likely inciting event to current presentation. Since hospital discharge, he has had clinical and radiologic improvement with residual left basilar disease consistent with physical examination with diminishment in left base compared to right base. Overall, he is tolerating his oral antibiotic therapy without side effects. Will continue to treat with po amoxicillin-clavulanate 875-125mg bid and plan for repeat imaging in about 3 months, as below. Left empyema s/p VATS (10/06/2024) with S intermedius, Schaalia canis, and anaerobes Magallon's esophagus with last EGD (June 2024) complicated by post-procedural emesis/possible aspiration History of hiatal hernia repair Plan Continue po amoxicillin-clavulanate 875-125mg twice daily. Elected to continue rather than transition to po amoxicillin 1g twice daily given clinical and radiographic improvement and to avoid increasing pill burden given he is also tolerating well though discussed signs and symptoms of potential side effects. Will plan to monitor labs as-needed pending signs or symptoms of potential side effects, which we discussed, but is currently tolerating well. Plan for repeat CT in ~3 months (~4 months of total antibiotic therapy) around mid-January, which can be completed locally with subsequent telemedicine follow-up visit with pr on 01/29/2025 at 9:30am prior to planned travel/time in [place] during February and March. 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 Notably, this Schaalia sp did not grow on repeat/operative cultures as opposed to other species so may not require as long of course as pulmonary Actinomyces necessarily. If ongoing indication for treatment beyond planned follow-up, would likely plan to repeat imaging after similar interval upon return from [place] to determine appropriate discontinuation. Return in about 3 months (around 01/29/2025). Solitario Arguelles MD Clinical Senior Network Administrator Division of Infectious Diseases Orders Placed This Encounter CT CHEST WITHOUT CONTRAST Amoxicillin-clavulanate 875-125 MG tablet Requested Prescriptions Signed Prescriptions Disp Refills Amoxicillin-clavulanate 875-125 MG tablet 60 tablet 2 Sig: Take 1 tablet by mouth every 12 hours. Patient has verified full name and . documented in this encounter [facility] 11-06-2024 Radiology Diagnostic study note [facility] Imaging Services [address] [place], [place] [address] Chest without Contrast MR#: [id number] Acct: [id number] Name: MAXX FORDE Rep #: [id number] : 1950 M 74 From: Mark Givens MD PCP: Dr. Emanuel Garland, DO Status: REG CLI Study:Chest without Contrast Date of Exam: 11/05/24 Exam# [id number] Ordering Dr: DONNA ERYL PROCEDURE: CHEST WITHOUT CONTRAST 11/05/2024 REASON FOR EXAM: EMPYEMA TECHNIQUE: Chest CT without contrast. Coronal and Sagittal reconstruction series were provided. One or more dose reduction techniques were used (e.g., Automated exposure control, adjustment of the mA and/or kV according to patient size, use of iterative reconstruction technique RADIATION DOSE SUMMARY: CTDlvol: 11 mGy DLP: 416 mGycm COMPARISON: September 2024. FINDINGS: Thyroid gland: Negative. Lungs: Improved aeration left lung with diminished airspace disease in the left lung base. Pleura: Improvement left hydro pneumothorax. With near-complete resolution of air in the pleural space. Negative for pleural effusion or pneumothorax. Airways: Imaged bronchi and trachea otherwisenegative. Mediastinum: Negative for mediastinal mass. Lymph nodes: Negative for axillary, mediastinal or hilar adenopathy. Heart and Vasculature: Resolution pericardial fluid. Heart normal size. Dzxq-ox-wirsoqne vascular calcifications of the thoracic aorta. Coronary Artery Calcifications: Severe vascular calcifications of the coronary arteries Upper Abdomen: Gallbladder contracted. Increased stool throughout the colon. Hardware: None. Bones: Age-appropriate degenerative changes of the thoracic spine. CT/Chest without Contrast IMPRESSION: Improved appearance left lung with diminished left-sided hydro pneumothorax and pleural thickening. Decreased left lung base airspace disease. Reading Location: [facility] CC: [facility]; Dr. Emanuel Garland, DO ~ Mold Injector: Signed [facility] 10-19-2024 History of Presen t illness Narrative PROGRESS NOTE Chief complaint: post op follow up visit HPI: Maxx Forde is a 74 y.o. male never smoker who underwent left VATS, washout, pulmonary decortication 10/06/24 (Dr. Suarez) for a left empyema. OR cultures final no growth. He was followed by infectious disease during his hospital stay and discharged on Augmentin through 11/09/24. He reports that he is doing well and improves daily since discharge. Energy level and shortness of breath have improved. He does have a very intermittent cough. No fevers. He is no longer having any pain. He notes all of his fingers are peeling, this started prior to discharge from the hospital. He does not feel it has worsened overall, but his family states they did not see him yesterday and it looks worse today than it did this past Saturday. He has no other concerning skin areas. He does not have any known drug allergies. He returns today for his post operative visit with a CXR. Review of Systems See HPI Physical Exam BP 120/69 (BP Location: Left arm, BP Position: Sitting) Pulse 70 Temp 97.7 F (36.5 C) (Oral) Resp 16 Ht 1.803 m (5' 10.98) Comment: taken by Klayan 10/19 Wt 70.6 kg (155 lb 9.6 oz) Comment: with shoes on SpO2 97% BMI 21.71 kg/m Smoking Status Never HEART: regular rate and rhythm. No murmurs, rubs or gallops. LUNGS: Breathing non-labored, lungs clear bilaterally. INCISIONS: most superior/posterior incision with katey intact, wound was not approximated between katey and currently has granulation tissue and mild serous drainage. No erythema, edema, or purulence. Other incisions are well approximated and appropriately healing with katey intact. Chest tube sites well approximated with sutures intact. Imaging Upon my personal review, his CXR today shows continued improvement in aeration of left lung and left pleural effusion Assessment/Plan: Problem Empyema of Lung Maxx Forde is 74 y.o. male never smoker who underwent left VATS, washout, pulmonary decortication 10/06/24 for a left empyema. OR cultures final no growth. Discharged on Augmentin through 11/09/24 per ID recommendations. CXR today is stable/improving. Chest tube site sutures and incision katey removed today. Aquacel dressing applied to most superior/posterior incision site, supplies and instructions provided for continued dressing changes. Recommend reaching out to ID due to peeling of hands while on Augmentin for further evaluation/manangement (I reached out to them today as well). Follow up with ID as scheduled with CT chest prior. Follow up with thoracic surgery as needed. ALIZA Wesley #[id number] documented in this encounter [facility] 10-19-2024 Instructions ALIZA Wesley - 10/19/2024 9:00 AM EDT -recommend reaching out to infectious disease for management of peeling on hands and antibiotics, I will also send them a message YOU MAY SHOWER NO TUB BATHS: -Do not take tub bath, go swimming or use a hot tub until instructed by your doctor. INCISION CARE: -Please clean incisions daily with mild soap and water - do not scrub -Keep incisions dry and open to air -Notify us of any increasing redness, pus-like discharge or seperation of the incision. -Do not let the shower stream hit the incision directly. -do not apply any ointments, creams, lotions, oils to the incisions - Numbness and tingling in the chest on the surgical side is normal. This may take 6 to 12 months to improve. For highest/farthest back incision: -aquacel dressing applied to incision today -take off dressing, cleanse incision site, and reapply Aquacel dressing twice daily -if the dressing is dry when you remove it, you can go to once daily -continue this dressing until the skin is completely closed documented in this encounter [facility] 10-14-2024 History of Presen t illness Narrative Care Management Discharge Note Selected Continued Care - Discharged on 10/14/2024 Admission date: 09/29/2024 - Discharge disposition: Home or Self Prison Medical Care Coordination complete. Service Provider Services Address Phone Fax Patient [facility] [address] [place] [address], [address], [facility] [address] [phone] -- CM has received confirmation from patient's PCP office stating PCP will follow [facility] orders. Patient medically stable for discharge per physician/medical team. Patient/Dividing Machine Operator Helper remain in agreement with the discharge plan. SUKHDEEP Burrell, BSN, RN Clinical Acoustical Carpenter Available by secure chat [facility] Medicine Daily Progress Note Patient: Maxx Forde, 1950, IMPRESSION / PLAN Maxx Forde is a 74 y.o. man with a history of HTN, HLD, atrial fibrillation, and GERD with yuri's esophagus who is admitted for management of Left-sided empyema Left-sided Empyema: s/p chest tube placement x 2 followed by VATS. Likely parapneumonic effusion caused by an initial aspiration pneumonia. - Thoracic surgery consulted, appreciate assistance in chest tube management. -left posterior tube removed 10/08 -left lateral tube removed 10/09 - ID assisting- Continue unasyn until discharge, then switch to augmentin (total duration 4 weeks, end 11/09) Acute on chronic Heart Failure with Preserved EF: Echo showed normal EF 60-65%. -active diuresis with IV lasix 80 BID, says he will only stay until tomorrow, so may need to order ongoing active diuresis via PO meds with close follow-up to adjust/titrate and decide whether he needs to be on ongoing diuretics to ensure net even I/Os once dry -start spironolactone -Would likely benefit from additional GDMT with SGLT2i, defer to outpatient guzzler builder -Goal neg 1 L daily until dry -not normally on diuretics at home. Paroxysmal Atrial Fibrillation ([id number]. Echo showed normal EF 60-65%. RVSP 29 mm Hg - resumed eliquis - Rate control with metoprolol 25mg bid. Apical pneumothorax: Likely related to chest tube. -stable CXRs after chest tube removal Anemia -likely due to acute inflammation. No overt bleeding. -does have hx of magallon's esophagus, so could have occult bleeding -Hgb has been stable over last several days -recommend outpatient Hgb monitoring within 1 week after discharge. Resistant hiccups: Likely secondary to diaphragmatic irritation. - Continue Thorazine 25 mg Q4 hours prn Hyperlipidemia: Continue atorvastatin and ezetimibe as his home combination ezetimibe/simvastatin is non-formulary Hypertension: Discontinued amlodipine due to soft BP, will resume as able Magallon's Esophagus: Continue PPI and Sucralfate DVT prophylaxis with lovenox Anticipated Disposition: PT/OT rec HHC, likely in 1-2 days Code status is Full Code normal weight (BMI 18-24.9) based on BMI of 22.6 Malnutrition Severity: Moderate Protein-Calorie Malnutrition (POA) Etiology of Malnutrition: Acute Illness / Injury INTERVAL HISTORY / SUBJECTIVE No acute events overnight. Edema improving, but still has pitting edema up to just above the ankles. Wants to go home SAQIB. Only willing to stay inpatient until tomorrow morning, then asking to transition to oral diuretics and get close outpatient follow-up. OBJECTIVE Temp 98.2 F (36.8 C) Pulse 67 Resp 18 BP 118/74 SaO2 96 % Weight 73.3 kg (161 lb 11.2 oz) (standing) PHYSICAL EXAM Gen: A, A, NAD ENT: MMM Resp: CTA & P bilat, normal effort Cardio: RRR, normal S1, S2, bilateral pitting edema improving, present to just above the ankles GI: S/NT/ND, NABS Psych: Ox3, appropriate affect and cognition DATA REVIEW WBC/Hgb/Hct/Plts: 6.23/7.9/24.7/407 (10/13 218) Na/K+/Phos/Mg/Ca: 135/4.3/--/1.9/-- (10/13 218) Bun/Creat/Cl/CO2/Glucose: 12/0.72/98/30/105 (10/13 218) ' Care Management Progress Note manager media relations received a message from PT regarding patient inquiring about a wheelchair upon discharge. manager media relations met with patient and family at the bedside to discuss a wheelchair upon discharge. At this time patient states he does not want a wheelchair. manager media relations reviewed with patient and family that [facility] will be their agency upon discharge. All other questions addressed. KARINA Jo,sewing room supervisor-[facility] [phone] Acute Physical Therapy Treatment Prior Gross Functional Mobility: independent Current AM-PAC score(s): CURRENT AM-PAC Mobility Raw Score: 20 Based on the above AM-PAC score(s) and PT clinical judgment, patient is a good candidate for discharge to Home with Home Health Barriers to discharge home: (Pt require all stairs with a single handrail and 24 hour able bodied family assist.) Mobility equipment available at home: none used ADL equipment available at home: shower chair, grab bars Equipment needed for discharge: 2 wheeled walker (Pt owns and does not want one ordered. Pt demonstrated safe use of the walker and pt verbalized understanding that the walker is NOT to be used on stairs and he will need able bodied family assist for his equipment and himself. Family also interested in a wheelchair for transport long distances due to endurance. This request was passed along to Dr. Salinas and case assistant Tom and both addressing with pt and his family. marina manager and MD to determine wheelchair need/discharge plan and address going forward with pt and pt family.) Current therapy frequency recommendation in acute: PT Therapy Frequency: 4 times a week Precautions and Weightbearing Status: Existing Precautions/Restrictions: cardiac, fall Lines/Tubes/Drains (Rehab Status): Telemetry Patient Safety Communication Prior to Visit: Nursing ([place]) Subjective: Pt agreeable to session reporting I might need to pee during our session Pain: General Pain Documentation (Adult, OB, Peds) Presence of Pain: denies pain/discomfort Presence of Pain Score (Auto-calculated): 0 Objective/Observation: Vitals/Vitals Responses to Treatment: Stable with session. HR 96, pulse ox 97%, and blood pressure: 156/76. RN aware of all. Cognition Overall Cognitive Status: Within Functional Limits Extremity Assessments: See PT Evaluation flowsheet for Extremity Measurement updates. Skin and Edema: Balance: Sitting Balance Static Sitting-Level of Assistance: Independent Dynamic Sitting-Level of Assistance: Independent Standing Balance Static Standing-Level of Assistance: Supervision Dynamic Standing-Level of Assistance: Supervision Skilled Rationale: Positioning, Sequencing, Verbal cues, Energy conservation, Breathing strategies Mobility Assessment/Intervention: Supine to Sit Mobility [place] Level: Supine->Sit: supervision Transfer Assessment/Intervention: Sit to Stand Transfer [place] Level: Sit->Stand: stand-by assist Skilled Rationale: Positioning, Sequencing, Verbal cues, Tactile cues, Energy conservation, Breathing strategies Skilled Intervention/Details: Sit->Stand: x6 Stand to Sit Transfer [place] Level: Stand->Sit: contact guard assist Gait/Functional Mobility Assessment/Intervention: Gait Assessment [place] Level: Gait: stand-by assist Assistive Device: Gait: front-wheeled walker Ambulation Distance (Feet): 350 (250-100) Gait Deviations Identified: decreased bridgett, decreased gait speed, decreased step length Gait Skilled Rationale: verbal, upright posture, improve foot placement Skilled Intervention/Details - Gait: Focus was safe use of the walker, midline posture control, and forward task focus while improving his step length. Gait steady and even. Overall pt with no mobility concerns for discharge. Stairs Assessment/Intervention: Stairs Assessment [place] Level: Stair Negotiation: stand-by assist Number of stairs: 12 Stairs Skilled Rationale: verbal, nonreciprocal pattern, demonstration Skilled Intervention/Details - Stairs: Pt reports he has a rail at home. Education completed on safe stair mechanics. Pt completed stairs with single handrail with stable step to pattern. No concerns and pt with no cocnerns. Outcome Score(s): CURRENT [facility] Basic Mobility Inpatient Short Form Turning over in bed: 4 - No Assistance Moving from lying on back to sittin - No Assistance Moving to and from bed to chair: 3 - A Little Assistance Sitting/standing from chair: 3 - A Little Assistance Walk in hospital room: 3 - A Little Assistance Climbing 3-5 steps with a railin - A Little Assistance CURRENT [facility] Mobility Raw Score: 20 CURRENT [facility] Mobility Functional Limitation: 35.83% Impaired in Basic Mobility Interventions: Assessment & Plan: Excellent progress toward goals with focus to remain upright ambulation and mobility while he remains admitted. Patient Instruction/Education this session: Learners: Patient Education provided: Plan of care Plan for next session: Gait Acute PT Goals Plan of Care by Michael Oliveira PT at 10/13/2024 12:09 PM Version 1 of 1 Problem: PT - General Goals Goal: Supine <-> Sit Transfers - Patient will perform supine to/from sit transfers with modified independence and with use of hospital bed features in order to improve functional mobility and safety. Outcome: Progressing Goal: Sit <-> Stand Transfers - Patient will perform sit to/from stand transfers with modified independence - independence and straight cane/no device in order to improve functional mobility and safety. Outcome: Progressing Goal: Ambulation - Patient will ambulate 500 feet with modified independence - independence and straight cane/no device to improve ability to safely navigate home and community. Outcome: Progressing Goal: Stairs - Patient will ascend/descend 12 stairs with modified independence, without an assistive device/straight cane, and single railing(s) to improve ability to safely navigate home and community. Outcome: Progressing PT treatment consisted of the following to progress towards the above goal(s): PT Evaluation and Treatment Time Therapeutic Activity Time Entry: 10 Gait Training Time Entry: 30 Treating Therapist: Michael Oliveira PT Additional Details: PT Co-Eval/Treatment Information Co-evaluation/co-treatment performed?: No simultaneous skilled care performed PPE used during patient interaction: gloves Patient location at end of session: chair Alarms on at end of session: none (Per RN) Needs in reach. Time In: 47 Time Out: 1027 Total Visit Time: 40 minutes Total Treatment Time (skilled, billable minutes): 40 minutes Upon discontinuation of Acute Care Physical Therapy Services or patient discharge from the hospital this note represents the current Physical Therapy Discharge Summary. 10/13/24901 Outlier Review Reviewing for: Outlier Meeting Medical Necessity: Yes Medical Necessity Summary: Patient admitted for empyema, chest tubes removed. IV diuresis. Eliquis restarted. Barriers: Standard Treatment/Therapy Intervention: No intervention needed Patient will discharge with home health care. Home Health Services [address] [place] [address] [facility] Medicine Daily Progress Note Patient: Maxx Forde, 1950, IMPRESSION / PLAN Maxx Forde is a 74 y.o. man with a history of HTN, HLD, atrial fibrillation, and GERD with yuri's esophagus who is admitted for management of Left-sided empyema Left-sided Empyema: s/p chest tube placement x 2 followed by VATS. Likely parapneumonic effusion caused by an initial aspiration pneumonia. - Thoracic surgery consulted, appreciate assistance in chest tube management. -left posterior tube removed 10/08 -left lateral tube removed 10/09 - ID assisting- Continue unasyn until discharge, then switch to augmentin (total duration 4 weeks, end 11/09) Acute on chronic Heart Failure with Preserved EF: Echo showed normal EF 60-65%. -active diuresis with IV lasix BID, getting close to euvolemia, likely needs another 1-2 days of diuresis -Goal neg 1 L daily until dry -not normally on diuretics at home. Paroxysmal Atrial Fibrillation ([id number]. Echo showed normal EF 60-65%. RVSP 29 mm Hg - resumed eliquis - Rate control with metoprolol 25mg bid. Apical pneumothorax: Likely related to chest tube. -stable CXRs after chest tube removal Anemia -likely due to acute inflammation. No overt bleeding. -does have hx of magallon's esophagus, so could have occult bleeding -Hgb has been stable over last several days -recommend outpatient Hgb monitoring within 1 week after discharge. Resistant hiccups: Likely secondary to diaphragmatic irritation. - Continue Thorazine 25 mg Q4 hours prn Hyperlipidemia: Continue atorvastatin and ezetimibe as his home combination ezetimibe/simvastatin is non-formulary Hypertension: Discontinued amlodipine due to soft BP, will resume as able Magallon's Esophagus: Continue PPI and Sucralfate DVT prophylaxis with lovenox Anticipated Disposition: PT/OT rec [facility], likely in 1-2 days Code status is Full Code normal weight (BMI 18-24.9) based on BMI of 23 Malnutrition Severity: Moderate Protein-Calorie Malnutrition (POA) Etiology of Malnutrition: Acute Illness / Injury INTERVAL HISTORY / SUBJECTIVE No acute events overnight. Edema improving, but still has pitting edema up to calves OBJECTIVE Temp 97.9 F (36.6 C) Pulse 125 Resp 16 BP 120/68 SaO2 95 % Weight 74.3 kg (163 lb 11.2 oz) (standing wt) PHYSICAL EXAM Gen: A, A, NAD ENT: MMM Resp: CTA & P bilat, normal effort Cardio: RRR, normal S1, S2, bilateral pitting edema improving, up to mid-calves GI: S/NT/ND, NABS Psych: Ox3, appropriate affect and cognition DATA REVIEW WBC/Hgb/Hct/Plts: 7.17/7.8/24.1/441 (10/12 409) Na/K+/Phos/Mg/Ca: 136/3.6/--/1.7/-- (10/12 409) Bun/Creat/Cl/CO2/Glucose: 13/0.62/99/28/102 (10/12 409) ' [facility] Medicine Daily Progress Note Patient: Maxx Forde, 1950, IMPRESSION / PLAN Maxx Forde is a 74 y.o. man with a history of HTN, HLD, atrial fibrillation, and GERD with yuri's esophagus who is admitted for management of Left-sided empyema Left-sided Empyema: s/p chest tube placement x 2 followed by VATS. Likely parapneumonic effusion caused by an initial aspiration pneumonia. - Thoracic surgery consulted, appreciate assistance in chest tube management. -left posterior tube removed 10/08 -left lateral tube removed 10/09 - ID assisting- Continue unasyn until discharge, then switch to augmentin (total duration 4 weeks, end 11/09) Paroxysmal Atrial Fibrillation ([id number]. Echo showed normal EF 60-65%. RVSP 29 mm Hg - resumed eliquis - Rate control with metoprolol 25mg bid. Apical pneumothorax: Likely related to chest tube. -stable CXRs after chest tube removal Anemia -likely due to acute inflammation. No overt bleeding. -does have hx of magallon's esophagus, so could have occult bleeding -Hgb has been stable over last several days -recommend outpatient Hgb monitoring within 1 week after discharge. Resistant hiccups: Likely secondary to diaphragmatic irritation. - Continue Thorazine 25 mg Q4 hours prn Hyperlipidemia: Continue atorvastatin and ezetimibe as his home combination ezetimibe/simvastatin is non-formulary Acute on chronic Heart Failure with Preserved EF: Echo showed normal EF 60-65%. -active diuresis with IV lasix BID, getting close to euvolemia -Goal neg 1 L daily until dry -not normally on diuretics at home. Hypertension: Discontinued amlodipine due to soft BP, will resume as able Magallon's Esophagus: Continue PPI and Sucralfate DVT prophylaxis with lovenox Anticipated Disposition: PT/OT rec [facility], possibly could happen over the weekend. Code status is Full Code normal weight (BMI 18-24.9) based on BMI of 23 Malnutrition Severity: Moderate Protein-Calorie Malnutrition (POA) Etiology of Malnutrition: Acute Illness / Injury INTERVAL HISTORY / SUBJECTIVE No acute events overnight. Feeling well, edema improving. Weight close to admission weight. OBJECTIVE Temp 98 F (36.7 C) Pulse 92 Resp 16 BP 114/63 SaO2 93 % Weight 75.6 kg (166 lb 9.6 oz) PHYSICAL EXAM Gen: A, A, NAD ENT: MMM Resp: CTA & P bilat, normal effort Cardio: RRR, normal S1, S2, bilateral pitting edema improving GI: S/NT/ND, NABS Psych: Ox3, appropriate affect and cognition DATA REVIEW WBC/Hgb/Hct/Plts: 6.98/8.3/25.5/496 (10/11 316) Na/K+/Phos/Mg/Ca: 136/3.0/--/1.6/7.9 (10/11 316) Bun/Creat/Cl/CO2/Glucose: 12/0.60/97/28/85 (10/11 316) ' See paper progress note which was written during [facility] downtime Outpatient Parenteral Antibiotic Therapy (OPAT): For patients who will be discharged on parenteral (IV) antibiotic therapy, please utilize the OPAT discharge orderset. For patients who are on oral antibiotic therapy, utilization of this orderset is not necessary. Diagnosis: Other: pulmonary L empyema (strep intermedius, anaerobe, actino) Antibiotic(s) with dose: The dosing of these antibiotics is based on today's PK/PD calculations and is subject to change. Please evaluate the patient's medication list and carefully verify their dosing, and infusion rate prior to discharge. Do not hesitate to call the on-call ID Team with any questions. Estimated Creatinine Clearance: 99 mL/min (by C-G formula based on SCr of 0.7 mg/dL). - Oral Antibiotics: augmentin 875/125 mg po bid Duration of Therapy: Total Duration of therapy: 4 weeks Other: augmentin - Start Date: 10/08/2024; Stop Date: 11/09/2024 (do not stop antibiotics until after ID follow up) Does Patient Need Oral Antibiotic Therapy at the End of Parenteral Therapy: TBD based on imaging OPAT ID Providers: (ID Attending): Dr. Solitario Arguelles (ID SHEAR GRINDER OPERATOR HELPER): Michele Thompson Labs: Please have the [facility] or [facility] obtain the following labs and fax to [phone], attention (ID Attending): Dr. Solitario Arguelles (ID SHEAR GRINDER OPERATOR HELPER): Michele Thompson - Chem-6 (Including serum creatinine) without Glucose x1 october - CBC w/diff x 1 october - Hepatic Function Panel x 1 october Imaging: Yes: Prior to discharge, the patient should have CT chest without contrast to be scheduled on 11/05/24 Follow-up: Yes - patient should follow-up in the ID Clinic (Please ensure patient is [facility] prior to discharge) If the patient is being [facility] we will defer ID Care to the Infectious Disease Providers at the LTACH facility. Please instruct the facility that if the patient requires ID Follow-up after discharge, then they should call our office to arrange for an appointment. Central Access: Can Central Access be removed at the end of therapy: NA Additional notes: Patient needs ID clinic follow up with Dr Arguelles on 11/09 at 3:30 pm ALIZA Grijalva Cosigned by Solitario Arguelles MD at 10/10/2024 10:08 AM EDT Images from the original note were not included. DIVISION OF INFECTIOUS DISEASES FOLLOW UP NOTE - TEAM 5 SUBJECTIVE/INTERVAL HISTORY: Pt is a 74 y.o. male being followed by ID for L empyema. All chest tubes are removed and he is anxious to go home. He denies dyspnea or cough. No pain. No fevers or chills. No abdominal pain, nausea, vomiting, or diarrhea. REVIEW OF SYSTEMS: As above Fall Risk: Assessed for patient fall risk and communicated pertinent findings to multidisciplinary team. MEDICATIONS reviewed, antimicrobials include: Acetaminophen 975 mg Oral Q8H 0800/1600/2200 [Held by provider] amLODIPine 10 mg Oral Daily ammonium lactate 1 Application Topical Daily ampicillin-sulbactam 3 g Intravenous Q6HNS Atorvastatin 10 mg Oral Daily enoxaparin 40 mg Subcutaneous Daily Ezetimibe 10 mg Oral Daily furosemide 40 mg Intravenous BID AC Gabapentin 300 mg Oral TID guaiFENesin 600 mg Oral Q12H Ipratropium-albuterol 3 mL Nebulization Q6HNS lidocaine 1 patch Transdermal Q24H Methocarbamol 500 mg Oral 4x daily Metoprolol 25 mg Oral Q12H Pantoprazole 40 mg Oral BID Polyethylene glycol 17 g Oral Q12H Sucralfate 1 g Oral Q6H [Held by provider] Torsemide 20 mg Oral Daily PHYSICAL EXAM: Vitals: BP 102/63 (BP Location: Right arm, BP Position: Sitting) Pulse 88 Temp 97.5 F (36.4 C) (Oral) Resp 16 Ht 1.803 m (5' 10.98) Wt 81.2 kg (179 lb) Comment: standing SpO2 99% BMI 24.98 kg/m General: The patient is a well-developed, well-nourished male in no apparent distress. HEENT: Head is normocephalic and atraumatic. Conjunctiva clear. Neck: Supple. No lymphadenopathy. Heart: Regular, rate and rhythm without murmurs appreciated. Lungs: Clear to auscultation bilaterally with no wheezes, rhonchi or rales noted. Abdomen: Soft, nontender, and nondistended. Normal bowel sounds x4 quads. Extremities: Without edema. Neurologic: No focal deficits appreciated on gross motor exam. Alert and cooperative. Skin: No rash noted on exposed skin. Psych: Pleasant mood with appropriate affect Central Line Type: n/a LABS: WBC/Hgb/Hct/Plts: 8.53/8.3/25.0/539 (10/09 237) Lab Results Component Value Date RBCDISTRIBU 13.8 10/09/2024 GRNLOCYT 91.4 10/07/2024 LYMPHOCYT 4.1 10/07/2024 MONOCYTELEC 3.3 10/07/2024 EOSINOPHILS 0.0 10/07/2024 BASOPHILS 0.2 10/07/2024 LYMPHOCYTABS 0.49 (L) 10/07/2024 EOSINOPHLABS <0.04 10/07/2024 PLATELET 539 (H) 10/09/2024 MPV 8.6 (L) 10/09/2024 Bun/Creat/Cl/CO2/Glucose: 14/0.70/99/28/110 (10/09 237) Na/K+/Phos/Mg/Ca: 133/3.8/--/1.8/7.7 (10/09 237) Lab Results Component Value Date ALT 16 09/29/2024 AST 19 09/29/2024 ALKPHOS 204 (H) 09/29/2024 BILITOTAL 0.8 09/29/2024 BILIDIRECT 0.3 (H) 09/29/2024 Urinalysis Lab Results Component Value Date SPGRVTYUR 1.019 09/29/2024 GLUCOSEURINE Negative 09/29/2024 KETONESURINE Negative 09/29/2024 BLOODURINE Negative 09/29/2024 NITRITESURIN Negative 09/29/2024 LEUKOCESTUR Negative 09/29/2024 WBCURINE 0 - 5 09/29/2024 RBCURINE 3-5 (A) 09/29/2024 BACTERIAURIN ABSENT 09/29/2024 Microbiology: OSH cx; 09/28 Bcx- NGTD 09/28 thoracentesis - Strep intermedius, Parvimonas, Schaalia Canis Cytology neg for malignant. Consistent with acute inflammation [facility] cx: 09/30 CT culture - Strep intermedius, anaerobes 10/01 Aspirate - Strep intermedius 10/06 VATS - NG Imaging: CT CHEST WITHOUT CONTRAST Final Result IMPRESSION: 1. Significantly decreased size of moderately large multiloculated left pleural effusion after chest tube placement, now with new small left pneumothorax and improved left lung atelectasis. 2. New small right pleural effusion and mild adjacent atelectasis. 3. Mildly enlarging small pericardial effusion. I personally viewed and interpreted these images and I have reviewed and approved this report. SSMENT: Maxx Forde is a 74 y.o. male with a PMH :of atrial fibrillation on Eliquis, HTN, HLD, Magallon's esophagus, hiatal hernia repair and OA. He was recently evaluated at [facility] ED 09/19 for acute sharp chest pain. CT showed 5 cm mass vs loculation. Pulmonary follow up and had thoracentesis 09/28 and started on IV vanc/zosyn. He was transferred to [facility] for thoracic surgery evaluation who placed a chest tube 09/30. OSH cultures grew strep intermedius, anaerobes and actino. He was transitioned to amp/sulbactam. He underwent VATS with washout on 10/06. Final chest tube removed today. Cultures are without growth. Plan to transition to oral augmentin x 4 weeks with repeat imaging and ID follow up before stopping antibiotics. Patient and family were updated on the plan. L empyema Magallon's esophagus Hx hiatal hernia repair -Estimated Creatinine Clearance: 99 mL/min (by C-G formula based on SCr of 0.7 mg/dL). RECOMMENDATIONS: Discontinue IV amp/sulbactam Begin oral augmentin 875/125 mg bid - until ID clinic follow up See OPAT note for further recommendations - as a separate note. . Recommendations provided to primary team. ID Team 5 will sign off. Please call with questions. ID ATTENDING: Dr Toni Thompson APRN, MS, Adult SHEAR GRINDER OPERATOR HELPER-C Infectious Diseases Pager [phone] Cosigned by Solitario Arguelles MD at 10/10/2024 10:08 AM EDT Associated attestation - Solitario Arguelles MD - 10/10/2024 10:08 AM EDT Attending Attestation I have seen and examined the patient independent of the advanced practice provider on 10/09/2024. I have reviewed the patient's vital signs, physical exam findings, labs, problem list, and any pertinent radiographic images with the advanced practice provider in attending rounds. I discussed the patient's current problems and developed the plan. I have discussed the plan with the patient and all of the patient's questions were answered. I reviewed and edited this note. I personally performed all aspects of the medical decision making for this encounter. I have reviewed and verified this documentation and it accurately reflects our care. Maxx Forde is 74 y.o. male with left empyema s/p thoracentesis and chest tube placement with polymicrobial growth. Repeat CT today with significant decrease in size of loculated left effusion as well as small pericardial effusion. Cultures with polymicrobial growth, including Streptococcus spp and anaerobes, here and at [facility]. He has improved on vancomycin and piperacillin-tazobactam; however, based on cultures, can narrow to ampicillin-sulbactam. Of note, [facility] culture with Schaalia spp identified, which was previously classified as Actinomyces. Following VATS on 10/06/2024 with final chest tube removal on 10/09/2024, will transition to amox-clav on discharge until ID follow-up with me on 11/09/[address] Chest with likely transition to amoxicillin thereafter. If develop diarrhea then will likely transition sooner. Left empyema s/p VATS Magallon's esophagus History of hiatal hernia repair My clinical assessment included addressing complex issues in the following area(s): Complex Antimicrobial Therapy Counseling and Treatment: Focuses on educating patients and families on antimicrobial stewardship, addressing resistance issues, and tailoring therapy options based on public health data. Plan: Continue amp-sulbactam while admitted, transition to po amox-clav on discharge. Please prescribe so that patient has adequate supply to reach follow-up appointment on 11/09/2024. We did discuss plan for one-time labs to monitor for adverse effects and to notify our office if develops diarrhea, etc. He will have follow-up imaging prior to our visit. See today's OPAT for more information. Recommendations have been communicated with primary team. ID Team 5 will continue to follow. If you have any questions, please reach out to the ID Team 5 . The ID Team pagers are available - Saturday through Saturday from 7:00am to 6:00pm. For emergent or after hour issues, please call the on-call/1st-call ID fellow pager. [facility] - [facility] Infectious Disease - Solitario Arguelles MD Clinical Senior Network Administrator Division of Infectious Diseases Pager: [phone] Note: I saw and evaluated the patient on 10/09/2024; however, due to a system-wide network outage, documentation was unable to be completed until this time. Acute Care Speech-Language Pathology Clinical Swallow Evaluation Clinical Recommendations Method of Nutrition: PO Intake: oral nutrition and hydration Medication Administration: Per patient preference Recommended Diet Grade: regular (IDDSI 7) Recommended Liquid Consistency: liquid- thin (IDDSI 0) Other Recommendations: Therapy frequency recommendation(s) in acute: no acute therapy warranted Discharge destination recommendation: Skilled [facility] services not warranted at discharge Pain General Pain Documentation (Adult, OB, Peds) Presence of Pain: denies pain/discomfort Presence of Pain Score (Auto-calculated): 0 Comfort/Acceptable General Pain Level/Goal: 0 DVPRS (Defense and Veterans Pain Rating Scale) DVPRS: Rest: 0- no pain DVPRS: Activity: 0- no pain Precautions Patient Safety Communication Prior to Visit: Nursing Lines/Tubes/Drains (Rehab Status): No critical lines at this time Systems Review Communication Status: Verbal Hearing Acuity: Not impaired Behavioral Observations: pleasant, cooperative Acute BASKETBALL PLAYER Outcomes Tracking Communicate basic wants and needs?: yes Demo insight/appreciation of deficits?: yes Complete basic problem solving?: yes Exam limited by cognition?: No Respiratory Status O2 Device: room air O2 Sat (%): 99 % Resp Rate: 16 History of Present Illness: Maxx Forde is a 74 y.o. male who was admitted on 09/29/2024 per chart with a history of HTN, HLD, atrial fibrillation, and GERD with yuri's esophagus who is admitted for management of Left-sided empyema Prior Medical History: Past Medical History[1] BASKETBALL PLAYER History: Previous Clinical Swallow Eval: No Previous Swallow Therapy: No Previous MBS: No Previous FEES: No Prior Results: None on file. Baseline method of nutrition: Oral nutrition/hydration Regular (IDDSI 7) Liquid - thin (IDDSI 0) Current method of nutrition: Oral nutrition/hydration Regular (IDDSI 7) Liquid- thin (IDDSI 0) Clinical Reasons for Exam: Patient Reported Dysphagia Symptoms: No Reason(s) for Exam: Baseline exam Subjective: Pleasant and agreeable to evaluation, sitting upright in chair. Denies difficulty swallowing. Oral Mechanism Exam: Oral Mucosa Healthy appearing mucosa Oral Secretions Normal Dentition Natural Face: Sensory Function Equal sensation on forehead, cheeks and jaw Face: Motor Function Symmetrical at rest Mandible Functional bilateral symmetry, range of motion and perceived strength of masseter and temporal muscles Lips Symmetrical at rest and during movement Tongue Symmetrical, functional range of motion in all planes Soft Palate Did not test Gag Response Did not test Neck and Shoulders Holds head upright without difficulty Cranial Nerve Impairments Vocal Quality: WDL GRBAS: A perceptual rating scale for voice parameters Rating scale of 0 to 3 (0 = no impairment, 1 = minimal to mild impairment, 2 = moderate impairment, 3 = severe impairment) Grade of dysphonia (G): 0 Roughness (R): 0 Breathiness (B): 0 Asthenia (A): 0 Strain (S): 0 Consistencies tested Delivered via Amount Thin Straw ~1 cup Regular solid Self-fed x2 crackers Position of patient: High Grier's (60-90 degrees) Oral Phase Function Pre-Oral Functional Labial Closure Intact Mastication Timely and efficient chewing and mashing Oral Stasis Absent Oral Phase Summary: WFL Pharyngeal Phase Function Perceived Swallow Present Cough Response No Throat Clear No Subjective Complaint of Residue No Pharyngeal Phase Summary: Appears intact, no s/s of aspiration throughout. Swallow Outcomes: Functional Oral Intake Scale (FOIS): Level 7 - Total oral intake with no restrictions Clinical Impression: Maxx Forde presents with suspected functional oropharyngeal swallowing abilities in the setting of admission for management of left-sided empyema. Demonstrated complete mastication and complete oral clearance. No overt s/s of aspiration throughout. Recommend diet of regular solids and thin liquids. No skilled BASKETBALL PLAYER services warranted, BASKETBALL PLAYER to sign off. Rehab potential: (n/a) Plan for next session: n/a Acute BASKETBALL PLAYER Goals Notes from 10/08/2024 10:38 PM through 10/09/2024 10:38 AM 1. Pt will verbalize understanding of results and recommendations from today's evaluation. - Goal met. Patient Education/Instruction Learners: Patient Education provided: Dysphagia recommendations/impressions, Role of this discipline, Plan of care Teaching method: Verbal Education/Instruction Learner response: Applies knowledge Learning preferences: Auditory Learning considerations: No barriers/ready to learn Speech Language Pathologist: JUAN JOSE Ledbetter Time In: 931 Time Out: 939 Total Visit Time: 8 minutes Total Treatment Time (skilled, billable minutes): 8 minutes BASKETBALL PLAYER Co-Eval/Treatment Information Co-evaluation/co-treatment performed?: No simultaneous skilled care performed PPE used during patient interaction: gloves Patient location/status at end of session: chair Patient alarms at end of session: none altered Needs in reach BASKETBALL PLAYER Evaluation and Treatment Time Swallowing Eval 20951: 8 Upon discontinuation of Acute Care Speech Therapy Services or patient discharge from the hospital this note represents the current Speech Therapy Discharge Summary [1] Past Medical History: Diagnosis Date Arthritis Magallon esophagus Essential hypertension Hyperlipidemia Ventral incisional hernia [facility] Medicine Daily Progress Note Patient: Maxx Forde, 1950, IMPRESSION / PLAN Maxx Forde is a 74 y.o. man with a history of HTN, HLD, atrial fibrillation, and GERD with yuri's esophagus who is admitted for management of Left-sided empyema Left-sided Empyema: s/p chest tube placement x 2 followed by VATS. Likely parapneumonic effusion caused by an initial aspiration pneumonia. - Thoracic surgery consulted, appreciate assistance in chest tube management. -left posterior tube removed 10/08 -left lateral tube removed 10/09 - ID assisting- Continue unasyn until discharge, then switch to augmentin (total duration 4 weeks, end 11/09) Paroxysmal Atrial Fibrillation ([id number]=2. Echo showed normal EF 60-65%. RVSP 29 mm Hg - resume eliquis 10/10 - Rate control with metoprolol 25mg bid. Apical pneumothorax: Likely related to chest tube. -stable CXRs after chest tube removal Anemia -likely due to acute inflammation. No overt bleeding. -does have hx of magallon's esophagus, so could have occult bleeding -Hgb has been stable over last several days -recommend outpatient Hgb monitoring within 1 week after discharge. Resistant hiccups: Likely secondary to diaphragmatic irritation. - Continue Thorazine 25 mg Q4 hours prn Hyperlipidemia: Continue atorvastatin and ezetimibe as his home combination ezetimibe/simvastatin is non-formulary Acute on chronic Heart Failure with Preserved EF: Echo showed normal EF 60-65%. -active diuresis with IV lasix -Goal neg 1 L daily until dry -not normally on diuretics at home. Hypertension: Discontinued amlodipine due to soft BP, will resume as able Magallon's Esophagus: Continue PPI and Sucralfate DVT prophylaxis with lovenox Anticipated Disposition: PT/OT rec [facility], possibly could happen over the weekend. Code status is Full Code normal weight (BMI 18-24.9) based on BMI of 23 Malnutrition Severity: Moderate Protein-Calorie Malnutrition (POA) Etiology of Malnutrition: Acute Illness / Injury INTERVAL HISTORY / SUBJECTIVE No acute events overnight. Feeling well, quite edematous up to mid thighs. No new concerns. OBJECTIVE AFVSS, labs stable PHYSICAL EXAM Gen: A, A, NAD ENT: MMM Resp: CTA & P bilat, normal effort Cardio: RRR, normal S1, S2, bilateral pitting edema to mid thighs GI: S/NT/ND, NABS Psych: Ox3, appropriate affect and cognition DATA REVIEW WBC/Hgb/Hct/Plts: 6.98/8.3/25.5/496 (10/11 316) Na/K+/Phos/Mg/Ca: 136/3.0/--/1.6/7.9 (10/11 316) Bun/Creat/Cl/CO2/Glucose: 12/0.60/97//85 (10/11 316) ' THORACIC SURGERY PROGRESS NOTE SUBJECTIVE: NAEON. In high spirits, some AF this AM with [id number]. Otherwise doing well. OBJECTIVE: Temp Av.5 F (36.4 C) Min: 97.4 F (36.3 C) Max: 97.6 F (36.4 C)Systolic (24hrs), Av , Min:94 , Max:111 Diastolic (24hrs), Av, Min:56, Max:65 Pulse Av.9 Min: 81 Max: 144 O2 Sat (%): 94 % (10/09 230) O2 Device: room air (10/09 2043) Flow (L/min): 0 (10/09 2043) I/O last 3 completed shifts: In: 1286.9 [P.O.:890; IV Piggyback:396.9] Out: 1747 [Urine:1545; Other:201] Physical Exam: - General: appears comfortable, no acute distress, laying comfortably in bed - Abdominal: soft, non-distended, appropriately tender on exam - Cardiac: regularly irregular rate and rhythm - Respiratory: no respiratory distress, on RA. Chest tube x1 in place with serosang output. No air leak. - Extremities: Minimal peripheral edema bilaterally Labs: WBC/Hgb/Hct/Plts: 8.53/8.3/25.0/539 (10/09 237) Na/K+/Phos/Mg/Ca: 133/3.8/--/1.8/7.7 (10/09 237) Bun/Creat/Cl/CO2/Glucose: 14/0.70/99/28/110 (10/09 237) ASSESSMENT & PLAN: Maxx Forde is a 74 y.o. male with PMHx afib, HTN, GERD who p/w loculated empyema. S/p bedside chest tube 8/20 into lateral pocket and IR pigtail 10/01 into posterior pocket. S/p L VATS 10/06. -Will remove final chest tube this am. If repeat CXR stable, OK for DC from thoracic surgery standpoint -Would recommend sending patient home with 40mg PO lasix daily for 4 days -Abx per ID/primary, transition to PO at DC. Continue unasyn abx, follow OR cultures (NGTD). Previously growing fusobacterium, parvimonas, strep intermedius. -40 IV lasix daily today. Replace electrolytes K > 4, Mg > 2, Phos > 3 -Up and out of bed, PT/OT - continue DVT ppx, ok to start eliquis tomorrow 10/10. Discussed with Dr. Erick King MD Cardiothoracic Surgery Resident, PGY3 [id number] 10/09/24 7:32 AM Cosigned by Maria Del Rosario Suarez MD at 10/09/2024 10:37 AM EDT Associated attestation - Maria Del Rosario Suarez MD - 10/09/2024 10:37 AM EDT Thoracic Surgery Attending I reviewed the relevant data, labs, and imaging. The plan was developed mutually at the time of rounds. The above note has been reviewed and I agree with the assessment and plan. Total time spent with patient greater than: 20 Minutes . Doing much better overall, chest tube removed. Ok to restart eliquis tomorrow morning. Will need katey to be removed in clinic. Please diurese again today. We will arrange for return to clinic. He should complete a full course of antibiotics given that he still had purulent drainage on Saturday. Maria Del Rosario Suarez MD MPH Care Management Progress Note BRAXTON consulted by RN that patient's family is at bedside and asking for home health services upon discharge. Per PT/OT recs, patient is a good candidate to be discharged home with home health services. As well as intermediate for wound. BRAXTON met with pt and family at bedside. Per their request, BRAXTON sent referral to [facility]. SW contacted patient's PCP- Dr. Emanuel Garland ([phone]) agreeable to follow. SW to continue to facilitate discharge disposition. 10/08/24 1503 Patient Choice for Post-Acute Providers Resumption of care? No Establishing care? Yes Level of care for choice Home Health Care Preferred geographic region Discussed and honored Source of list Aidin List was provided to Patient Contact Vivian Forde [phone] Method of delivery In Person Is the provider part of a joint venture or have a financial relationship with discharging hospital? No [facility] [place] Paper Bundler H6 NUTRITION FOLLOW UP Nutrition Recommendations and Plan of Care: 1. Heart healthy diet + 1500mL fluid restriction per team Appreciate PO documentation in chart 2. Continue [place] breakfast Essentials BID to aid in calorie and protein intake during admission. Provide additional ONS and snacks from unit PRN 3. Nutrition to follow and monitor PO intake, GI function, weight changes, labs, and skin integrity Maxx Forde is a 74 y.o. male with a history of HTN, HLD, atrial fibrillation, and GERD with yuri's esophagus who is admitted for management of Left-sided empyema. Of note, pt had chest tube placed by thoracic surgery 09/30, s/p removal today. Nutrition History/Assessment: Spoke with pt and family members at bedside. They all report much improvement in pt appetite and PO intake. He ate large [employer] meal for lunch today. Pt states he enjoys the food and has been eating 50-75% of meals as portion sizes are large for him. Per PO documentation in chart pt averaging 90% of meals over the past week. Has only been drinking half of [place] Breakfast supplement per day. Encouraged pt to continue as able, and discussed availability of additional snacks and supplements from unit galley as desired. Diet computer forensics technician to follow remainder of admission due to improvement in PO intake. Diet Order: Current Diet Orders Procedures DIET HEART HEALTHY - 4 GM SODIUM Fluid Restriction 1500mL (750mL Nursing, 750mL Nutrition) Standing Status: Standing Number of Occurrences: 1 Additional Modifier:: Fluid Restriction 1500mL (750mL Nursing, 750mL Nutrition) Oral Supplements: Diet Supplement ORAL NUTRITION SUPPLEMENTS [place] Breakfast Essentials Light Start - Chocolate; 2 times daily with lunch and dinner Frequency: Continuous Number of Occurrences: Until Specified % PO Intake per docflowsheets: Average of 91% over 11 meals Date Breakfast Lunch Dinner Snacks/Supplements 10/07 100% 100% 100% - 10/06 - - - - 10/05 100% 100% 75% - 10/04 75% 75% 100% [place] instant breakfast 10/03 - - - - 10/02 - - 100% - 10/01 - - - - 09/30 75% - - - Dietary Allergies: NKFA Anthropometrics: Ht: 5'11 (1.803m) Admit Wt: 164lbs / 74.7kg Current Wt: 177lbs / 80.3kg IBW: 172lbs / 78.2kg %IBW: 103% BMI: 24.71 kg/m2 Weights Since Admit: 10/08 80.3 kg 10/06 74.8 kg 10/01 74.7 kg 09/29 74.7 kg Weight History: Wt Readings from Last 10 Encounters: 10/08/24 80.3 kg (177 lb 1.6 oz) 07/22/24 78.4 kg (172 lb 14.4 oz) 04/29/24 78.6 kg (173 lb 3.2 oz) 01/29/24 78.5 kg (173 lb) Medications Reviewed: Acetaminophen 975 mg Oral Q8H 0800/1600/2200 [Held by provider] amLODIPine 10 mg Oral Daily ammonium lactate 1 Application Topical Daily ampicillin-sulbactam 3 g Intravenous Q6HNS Atorvastatin 10 mg Oral Daily enoxaparin 40 mg Subcutaneous Daily Ezetimibe 10 mg Oral Daily furosemide 40 mg Intravenous Daily Gabapentin 300 mg Oral TID guaiFENesin 600 mg Oral Q12H Ipratropium-albuterol 3 mL Nebulization Q6HNS lidocaine 1 patch Transdermal Q24H Methocarbamol 500 mg Oral 4x daily Metoprolol 25 mg Oral Q12H Pantoprazole 40 mg Oral BID Polyethylene glycol 17 g Oral Q12H Sucralfate 1 g Oral Q6H [Held by provider] Torsemide 20 mg Oral Daily Labs Reviewed: Bun/Creat/Cl/CO2/Glucose: 13/0.61/97/25/102 (10/08 356) WBC/Hgb/Hct/Plts: 10.17/8.7/27.0/619 (10/08 356) Na/K+/Phos/Mg/Ca: 131/4.3/--/2.0/8.0 (10/08 356) Physical Findings: GI: Last Bowel Movement: 10/06/24 Enteral Access: None I/O: Net -1235.6mL Respiratory: Room air Skin: Tico Score: 20 Wounds Wound Irritant Contact Dermatitis Perspiration 10/01/24 1755 Buttocks (7) Wound Other (Comment) 10/02/241999 Lateral;Left Axilla (6) Wound Surgical 10/06/242003 Left;Upper Abdomen (2) Edema: 2+(mild): L flank, bilateral ankles and feet Nutrition Focused Physical Exam: Nutrition Focused Physical Exam Completed?: completed Subcutaneous Fat Loss: Orbital Region (Orbital Fat Pads): mild Cheek Region (Buccal Fat Pads): WDL Upper Arm Region (Triceps): mild Thoracic and Lumbar Region (Ribs, Lower Back, Midaxillary Line): deferred Muscle Wasting: Christianity Region (Temporalis Muscle): WDL Clavicle Bone Region (Pectoralis Major, Trapezius Muscles): mild Shoulder and Acromion Process Region (Deltoid Muscle): mild Dorsal Hand (Interosseous Muscle): mild Scapular Bone Region (Trapezius, Supraspinatus, Infraspinatus Muscles): deferred Anterior Thigh and Patellar Region (Quadriceps Muscles): mild Posterior Calf Region (Gastrocnemius Muscle): mild Estimated Nutrition Needs: Wt used: 74.7 kg admit wt Estimated Energy Needs: 8707-5000 kcals/day (25-30 kcal/kg) Estimated Protein Needs: 90-112 g protein/day (1.2-1.5 g/kg) Estimated Fluid Needs: 1500mL fluid restriction per team Malnutrition Statement: Does the patient meet criteria for malnutrition: Yes Etiology of Malnutrition: Acute Illness / Injury Malnutrition Severity: Moderate Protein-Calorie Malnutrition (POA) as evidenced by clinical characteristics: Energy intake: Less than to 75% energy intake compared to estimated needs for > 7 days Subcutaneous Fat Loss: Mild Muscle Mass Loss: Mild *Based on [employer] and [employer]EN Indicators to Diagnose Malnutrition (AAIM) criteria (2012) Leila Cummins MS, RD, LD Contact: pager #[phone] or IHIS chat [facility] Medicine Daily Progress Note Patient: Maxx Forde, 1950, IMPRESSION / PLAN Maxx Forde is a 74 y.o. man with a history of HTN, HLD, atrial fibrillation, and GERD with yuri's esophagus who is admitted for management of Left-sided empyema Left-sided Empyema: s/p chest tube placement x 2 followed by VATS. Likely parapneumonic effusion caused by an initial aspiration pneumonia. - Thoracic surgery consulted, appreciate assistance in chest tube management. -left posterior tube removed today. -left lateral tube remains in place - Continue unasyn; reach out to ID for final abx recs (oral transition? Duration?) Paroxysmal Atrial Fibrillation ([id number]=8. Echo showed normal EF 60-65%. RVSP 29 mm Hg - Holding Apixaban per thoracic surgery recs - Rate control with metoprolol 25mg bid. Apical pneumothorax: Likely related to chest tube. - Daily CXR, stable to improved on serial monitoring. Anemia -likely due to acute inflammation. No overt bleeding. -does have hx of magallon's esophagus, so could have occult bleeding -Hgb has been stable over last several days -recommend outpatient Hgb monitoring within 1 week after discharge. Resistant hiccups: Likely secondary to diaphragmatic irritation. - Continue Thorazine 25 mg Q4 hours prn Hyperlipidemia: Continue atorvastatin and ezetimibe as his home combination ezetimibe/simvastatin is non-formulary Acute on chronic Heart Failure with Preserved EF: Echo showed normal EF 60-65%. -active diuresis with IV lasix daily -Goal neg 1 L daily until dry -not normally on diuretics at home. Hypertension: Discontinued amlodipine due to soft BP, will resume as able Magallon's Esophagus: Continue PPI and Sucralfate DVT prophylaxis with lovenox Anticipated Disposition: PT/OT rec [facility], possibly could happen over the weekend. Code status is Full Code normal weight (BMI 18-24.9) based on BMI of 23 Malnutrition Severity: Moderate Protein-Calorie Malnutrition (POA) Etiology of Malnutrition: Acute Illness / Injury INTERVAL HISTORY / SUBJECTIVE No acute events overnight. One of his chest tubes was removed this morning. Patient feeling well. No new complaints. Discussed plan and discharge timeline with family who was at bedside. OBJECTIVE Temp 97.5 F (36.4 C) Pulse 82 Resp 16 BP 109/57 SaO2 96 % Weight 80.3 kg (177 lb 1.6 oz) PHYSICAL EXAM Gen: A, A, NAD ENT: MMM Resp: CTA & P bilat, normal effort Cardio: RRR, normal S1, S2, bilateral pitting foot and ankle edema GI: S/NT/ND, NABS Psych: Ox3, appropriate affect and cognition DATA REVIEW WBC/Hgb/Hct/Plts: 10.17/8.7/27.0/619 (10/08 356) Na/K+/Phos/Mg/Ca: 131/4.3/--/2.0/8.0 (10/08 356) Bun/Creat/Cl/CO2/Glucose: 13/0.61/97/25/102 (10/08 356) ' Acute Physical Therapy Treatment Prior Gross Functional Mobility: independent Current AM-PAC score(s): CURRENT AM-PAC Mobility Raw Score: 20 Based on the above AM-PAC score(s) and PT clinical judgment, patient is a good candidate for discharge to Home with Home Health Barriers to discharge home: Patient unable to navigate stairs to enter home, Patient needs assistance with functional mobility Mobility equipment available at home: none used ADL equipment available at home: shower chair, grab bars Equipment needed for discharge: standard cane (pt fitted for, instructed in use and issued straight cane for discharge to home and for use while admitted.) Current therapy frequency recommendation in acute: PT Therapy Frequency: 4 times a week Activity Recommendations for outside of rehab session: OOB for all meals with FWW and ambulate 3x/ day as appropriate with staffing. During today's session patient s highest mobility achieved was performing sit <> stand transfers with CGA to min a . Please utilize Gait belt and Front wheeled walker and contact guard x1 assist in order to return patient to bed. Precautions and Weightbearing Status: Existing Precautions/Restrictions: cardiac, fall Lines/Tubes/Drains (Rehab Status): Chest tube (x1) Patient Safety Communication Prior to Visit: Nursing, Physician (PT walking in as service was pulling pt chest tube. Dr Carter King informing PT that pt is able to mobilize without any restrictions immediately following chest tube being pulled and encourage ambulation) Subjective: I am feeling so much better today Pt consented to PT treatment. Pain: Objective/Observation: Vitals/Vitals Responses to Treatment: 10/08/24 1120 Vitals ICU/PCU Pulse (Heart Rate) 83 BP 109/57 MAP (mmHg) 75 mmHg BP Method Automatic BP Location Right arm BP Position Sitting O2 Device: room air Cognition Overall Cognitive Status: Within Functional Limits Arousal/Alertness: Appropriate responses to stimuli Orientation Level: Oriented X4 Following Commands: Follows all commands and directions without difficulty Safety Judgment: Good awareness of safety precautions Awareness of Errors: Good awareness of errors made Deficits: Fully aware of deficits Balance: Standing Balance Static Standing-Level of Assistance: Stand-by assist Dynamic Standing-Level of Assistance: Minimum assistance Standing-Balance Support: Gait belt Skilled Rationale: Hand placement, Full extension to upright positioning/posture, Upright gaze/neck extension, Cues for increased safety Standing Balance Skilled Intervention/Details: see [place]ina Transfer Assessment/Intervention: Sit to Stand Transfer [place] Level: Sit->Stand: minimum assist (75% patient effort) Assistive Device: Sit->Stand: armed chair Skilled Rationale: Positioning, Hand placement, Verbal cues, Full extension to upright positioning/posture, Technique of activity, Initiation and execution of task, Cues for increased safety Skilled Intervention/Details: Sit->Stand: x 1 + x5 (see 5xSTS) + x 2 from bedside chair, pt requiring usage of lurdes UE, during initial stand patient demonstrating posterior LOB requiring min a from therapist to regain balance Stand to Sit Transfer [place] Level: Stand->Sit: minimum assist (75% patient effort) Assistive Device: Stand->Sit: armed chair Skilled Rationale: Verbal cues, Technique of activity, Cues for increased safety Skilled Intervention/Details: Stand->Sit: x 1 + x5 (see 5xSTS) + x 2 to bedside chair, pt requiring min a for controlled decent during initial stand Outcome Score(s): Pt performed the MOLINA balance scale on this date and scored a 27/56, placing the patient as a medium fall risk as seen in the chart below. High Fall Risk Medium Fall Risk Low fall risk 0-20 21-40 41-56 Jesse Rasheed, Jimmy S, Patrick FLYNN, Serena Lewis (1992). Measuring balance in the elderly: validation of an instrument. [employer] supplement 2:S7-11 5x Sit to Stand Test (5xSTS): Purpose of 5xSTS: This test provides a method to quantify functional LE strength and/or identify movement strategies a pt uses to complete transitional movements. Performed in 36.2 seconds indicating they are at an increased risk for recurrent falls. Geriatrics > or = 12 seconds: further fall assessment needed1 > 15 seconds: recurrent falls2 1Angel Ball 2008 and 2 Philip dyson al 2010. CURRENT -[facility] Basic Mobility Inpatient Short Form Turning over in bed: 4 - No Assistance Moving from lying on back to sittin - No Assistance Moving to and from bed to chair: 3 - A Little Assistance Sitting/standing from chair: 3 - A Little Assistance Walk in hospital room: 3 - A Little Assistance Climbing 3-5 steps with a railin - A Little Assistance CURRENT [facility] Mobility Raw Score: 20 CURRENT [facility] Mobility Functional Limitation: 35.83% Impaired in Basic Mobility Interventions: Intervention 1 Intervention Name: Education Sets/Reps/Duration: x 5 min Details: Energy conservation education was performed on this date. spouse, daughter, and patient was educated that it is normal to feel week and tired after a hospital stay. Patient was educated on prioritizing tasks throughout their day, activity pacing and on the 5 Ps for saving energy. The RENAE modified RPE scale was taught to patient, with education provided that when their RPE >6/10 they should take a rest break to conserve energy. Education was provided to spouse, daughter, and patient on Fall Prevention at Home. Most falls happen at home, most often in the bathroom, with PT educating on the following suggestions to prevent falls: Keep cords, furniture and small objects out of walkways and off stairs. Keep areas of your home well lit Make sure the backs of your legs touch the seat of the chair behind you before you sit down Perform heel pumps prior to moving from sitting to stand and march in place when going from standing to walking to prevent falls due to orthostatic hypotension. Intervention 2 Intervention Name: Molina Balance Test Details: Pt globally demonstrating deficits with narrow base of support and balancing tasks requiring pt to reach outside of base of support, requiring min a to mod a to recover balance. See above Assessment & Plan: Globally patient is demonstrating good progress throughout this plan of care. The patient was able to perform a 5xSTS and MOLINA balance test with no tachycardia. Today, this patient required verbal cuing and physical assistance during sit <> stand transfers, static standing balance, and dynamic standing balance with Fair carryover within trials.This patient is demonstrating improvements in static standing balance and cardiovascular endurance. This patient is limited due to impaired strength, impaired transfer ability, increased fall risk, and impaired balance which is limiting patients return to prior level of function Patient will continue to benefit from skilled physical therapy to address impairments and return to functional baseline. Patient Instruction/Education this session: Learners: Patient, Family Education provided: Activity outside of therapy, Discharge recommendations, Energy conservation strategies, Fall precautions Teaching method: Verbal Education/Instruction Learner response: Applies knowledge Learning preferences: Auditory Learning considerations: No barriers/ready to learn Plan for next session: Continue to progress higher level balancing tasks and LE strength/ power Acute PT Goals Plan of Care by Maggie Miller PT at 10/08/2024 11:16 AM Version 1 of 1 Problem: PT - General Goals Goal: Supine <-> Sit Transfers - Patient will perform supine to/from sit transfers with modified independence and with use of hospital bed features in order to improve functional mobility and safety. Outcome: Ongoing Goal: Sit <-> Stand Transfers - Patient will perform sit to/from stand transfers with modified independence - independence and straight cane/no device in order to improve functional mobility and safety. Outcome: Progressing Goal: Ambulation - Patient will ambulate 500 feet with modified independence - independence and straight cane/no device to improve ability to safely navigate home and community. Outcome: Progressing Goal: Stairs - Patient will ascend/descend 12 stairs with modified independence, without an assistive device/straight cane, and single railing(s) to improve ability to safely navigate home and community. Outcome: Ongoing PT treatment consisted of the following to progress towards the above goal(s): PT Evaluation and Treatment Time Neuromuscular Re-Education Time Entry: 29 Treating Therapist: Maggie Miller PT Additional Details: PT Co-Eval/Treatment Information Co-evaluation/co-treatment performed?: No simultaneous skilled care performed Assisted by during session: RN PPE used during patient interaction: gloves Patient location at end of session: chair, RN aware, lines intact Alarms on at end of session: RN aware, none Needs in reach. Time In: 1116 Time Out: 1145 Total Visit Time: 29 minutes Total Treatment Time (skilled, billable minutes): 29 minutes Upon discontinuation of Acute Care Physical Therapy Services or patient discharge from the hospital this note represents the current Physical Therapy Discharge Summary. THORACIC SURGERY PROGRESS NOTE SUBJECTIVE: NAEON. Now on room air. A flutter, normal HR. Pain well controlled. OBJECTIVE: Temp Av.8 F (36.6 C) Min: 97.5 F (36.4 C) Max: 98.1 F (36.7 C)Systolic (24hrs), Av , Min:90 , Max:126 Diastolic (24hrs), Av, Min:53, Max:76 Pulse Av Min: 72 Max: 163 O2 Sat (%): 95 % (10/08 0359) O2 Device: room air (10/07 2334) Flow (L/min): 1 (10/07 2100) I/O last 3 completed shifts: In: 2986.8 [P.O.:2320; I.V.:0.8; IV Piggyback:666] Out: 2077 [Urine:1720; Other:358] Physical Exam: - General: appears comfortable, no acute distress, laying comfortably in bed - Abdominal: soft, non-distended, appropriately tender on exam - Cardiac: regularly irregular rate and rhythm - Respiratory: no respiratory distress, on RA. Chest tube x2 in place with serosang output. No air leak. - Extremities: Minimal peripheral edema bilaterally Labs: WBC/Hgb/Hct/Plts: 10.17/8.7/27.0/619 (10/08 356) Na/K+/Phos/Mg/Ca: 131/4.3/--/2.0/8.0 (10/08 356) Bun/Creat/Cl/CO2/Glucose: 13/0.61/97/25/102 (10/08 356) ASSESSMENT & PLAN: Maxx Forde is a 74 y.o. male with PMHx afib, HTN, GERD who p/w loculated empyema. S/p bedside chest tube 09/30 into lateral pocket and IR pigtail 10/01 into posterior pocket. S/p L VATS 10/06. -Chest tubes to suction for now, 48 hrs to end this evening [facility] -Aggressive pulm toilet -40 IV lasix daily for now -Up and out of bed, PT/OT - continue unasyn abx, follow OR cultures (NGTD). Previously growing fusobacterium, parvimonas, strep intermedius. - continue holding eliquis, OK for DVT ppx - daily CXRs (ordered for tomorrow AM) Discussed with Dr. Erick King MD Cardiothoracic Surgery Resident, PGY3 [id number] 10/08/24 7:36 AM Cosigned by Maria Del Rosario Suarez MD at 10/08/2024 11:04 AM EDT Associated attestation - Maria Del Rosario Suarez MD - 10/08/2024 11:04 AM EDT Thoracic Surgery Attending I reviewed the relevant data, labs, and imaging. The plan was developed mutually at the time of rounds. The above note has been reviewed and I agree with the assessment and plan. Total time spent with patient greater than: 20 Minutes . Doing well, no air leak. Still fluid overloaded. Will plan to diurese with 40 IV lasix, and will dc the posterior chest tube today. Encouraged him to ambulate, cough, and use flutter/IS as much as possible. Maria Del Rosario Suarez MD MPH [facility] Medicine Daily Progress Note Patient: Maxx Forde, 1950, IMPRESSION / PLAN Maxx Forde is a 74 y.o. man with a historyof HTN, HLD, atrial fibrillation, and GERD with yuri's esophagus who is admitted for management of Left-sided empyema Left-sided Empyema: s/p VATS and chest tube placement. Seems to be a parapneumonic effusion caused by an initial aspiration pneumonia. This interpretation is consistent with his fluid studies. - Thoracic surgery consulted, appreciate assistance in chest tube management. - Continue unasyn to complete a 4 week course Paroxysmal Atrial Fibrillation ([id number]=5. Echo showed normal EF 60-65%. RVSP 29 mm Hg - Holding Apixaban per thoracic surgery recs - Rate control with metoprolol 25mg bid. Apical pneumothorax: Likely related to chest tube. - Daily CXR, stable to improved on serial monitoring. Resistant hiccups: Likely secondary to diaphragmatic irritation. - Continue Thorazine 25 mg Q4 hours prn Hyperlipidemia: Continue atorvastatin and ezetimibe as his home combination ezetimibe/simvastatin is non-formulary Heart Failure with Preserved EF: Echo showed normal EF 60-65%. - Continue torsemide 20 mg daily. and monitor creatinine, electrolyte and volume status. Hypertension: Discontinued amlodipine due to soft BP, will resume as able Magallon's Esophagus: Continue PPI and Sucralfate DVT prophylaxis with lovenox Anticipated Disposition: PT/OT consulted for dispo recs Code status is Full Code normal weight (BMI 18-24.9) based on BMI of 23 Malnutrition Severity: Moderate Protein-Calorie Malnutrition (POA) Etiology of Malnutrition: Acute Illness / Injury INTERVAL HISTORY / SUBJECTIVE No acute events overnight. Patient was afebrile, hemodynamically stable, and had appropriate oxygen saturation on 3L NC. Patient denies uncontrolled pain or dyspnea. Discussed his ongoing plan of care and discharge planning. Daughter was present at bedside. OBJECTIVE Temp 97.5 F (36.4 C) Pulse 91 Resp 17 BP 95/54 SaO2 99 % Weight 74.8 kg (164 lb 14.5 oz) PHYSICAL EXAM Gen: A, A, NAD ENT: MMM Resp: CTA & P bilat, normal effort Cardio: RRR, normal S1, S2, No GERARDO GI: S/NT/ND, NABS Psych: Ox3, appropriate affect and cognition DATA REVIEW WBC/Hgb/Hct/Plts: 12.03/8.6/26.3/551 (10/07 501) Na/K+/Phos/Mg/Ca: 131/4.1/3.5/1.8/7.5 (10/07 334-10/07 501) Bun/Creat/Cl/CO2/Glucose: 11/0.49/99/24/125 (10/07 334) ' Care Management Progress Note CM spoke to the patient and his daughter about discharge plan. Patient is not medically ready for discharge. Patient has 2 chest tubes to suction and oxygen 3L per NC. Patient lives with his . His daughtes are also around for help if needed. Patient said that he is not oppose to home health if needs to be after discharge. Vinita Kimbrough RN, BSN Clinical Acoustical Carpenter Acute Physical Therapy Treatment Prior Gross Functional Mobility: independent Current AM-PAC score(s): CURRENT AM-PAC Mobility Raw Score: 22 Based on the above AM-PAC score(s) and PT clinical judgment, patient is a good candidate for discharge to Home with Home Health Barriers to discharge home: Patient unable to navigate stairs to enter home, Patient needs assistance with functional mobility Mobility equipment available at home: none used ADL equipment available at home: shower chair, grab bars Equipment needed for discharge: standard cane (pt fitted for, instructed in use and issued straight cane for discharge to home and for use while admitted.) Current therapy frequency recommendation in acute: PT Therapy Frequency: 4 times a week Activity Recommendations for outside of rehab session: OOB for all meals with FWW and ambulate 3x/ day as appropriate with staffing. During today's session patient s highest mobility achieved was ambulating 250ft. Please utilize Gait belt and Front wheeled walker and stand by assist x1 + chair follow in order to return patient to bed. Precautions and Weightbearing Status: Existing Precautions/Restrictions: cardiac, fall Lines/Tubes/Drains (Rehab Status): Telemetry, Chest tube, Urinary catheter Patient Safety Communication Prior to Visit: Nursing Subjective: [place] Pt consented to PT treatment. Pain: General Pain Documentation (Adult, OB, Peds) Presence of Pain: denies pain/discomfort Presence of Pain Score (Auto-calculated): 0 Objective/Observation: Vitals/Vitals Responses to Treatment: 10/07/24 0908 10/07/24 0923 10/07/24 0925 Vitals ICU/PCU Pulse (Heart Rate) 82 (!) 163 (during ambulation) 120 Resp Rate 17 -- -- BP 104/60 -- 126/76 MAP (mmHg) 77 mmHg -- 95 mmHg BP Method Automatic -- Automatic BP Location Right arm -- Right arm BP Position Sitting -- Sitting (post ambulation) 10/07/24 0932 Vitals ICU/PCU Pulse (Heart Rate) 102 (PT exit from room) Resp Rate -- BP -- MAP (mmHg) -- BP Method -- BP Location -- BP Position -- Pt becoming tachycardic during ambulation, demonstrating decreased heart rate recovery with rest which limited activity on this date. RN aware O2 Device: nasal cannula Flow (L/min): 3 Cognition Overall Cognitive Status: Within Functional Limits Arousal/Alertness: Appropriate responses to stimuli Orientation Level: Oriented X4 Following Commands: Follows all commands and directions without difficulty Safety Judgment: Good awareness of safety precautions Awareness of Errors: Good awareness of errors made Deficits: Fully aware of deficits Balance: Standing Balance Static Standing-Level of Assistance: Stand-by assist Dynamic Standing-Level of Assistance: Contact guard Standing-Balance Support: Front-wheeled walker Skilled Rationale: Hand placement, Full extension to upright positioning/posture, Cues for increased safety Standing Balance Skilled Intervention/Details: Walker adjusted to appropriate height Transfer Assessment/Intervention: Sit to Stand Transfer [place] Level: Sit->Stand: stand-by assist Physical Assist: Sit->Stand: 1 person + 1 person to manage equipment Assistive Device: Sit->Stand: armed chair Skilled Rationale: Positioning, Hand placement, Verbal cues, Full extension to upright positioning/posture, Technique of activity, Initiation and execution of task, Cues for increased safety Skilled Intervention/Details: Sit->Stand: pt utilizing lurdes UE on armed chair for stand x1 Stand to Sit Transfer [place] Level: Stand->Sit: stand-by assist Physical Assist: Stand->Sit: 1 person + 1 person to manage equipment Assistive Device: Stand->Sit: armed chair Skilled Rationale: Positioning, Verbal cues, Controlled descent for sitting, Initiation and execution of task, Cues for increased safety Skilled Intervention/Details: Stand->Sit: x1 to bedside chair, cues provided to pt for good eccentric control and for appropriate orientation to chair prior to sitting with good ability to implement cues Gait/Functional Mobility Assessment/Intervention: Gait Assessment [place] Level: Gait: stand-by assist Physical Assist: Gait: 1 person + 1 person to manage equipment Assistive Device: Gait: front-wheeled walker Ambulation Distance (Feet): 250 Gait Deviations Identified: decreased bridgett, decreased step length, shuffling, flexed posture Gait Skilled Rationale: upright posture, hand placement on assistive device Skilled Intervention/Details - Gait: Pt rates gait training at 1/10 on the modified rating of perceived exertion (MRPE) scale. Pt required 0 seated rest breaks and 0 standing rest breaks during gait training. Pt performed gait training on 3L 02 via nasal cannula and maintained a Sa02 above 90%. Of note, pt did become tachycardic into the 160s during ambulation which limited distance ambulated, pt asymptomatic. Outcome Score(s): Timed walk test result (m/sec): 0.64 m/sec On this date, this patient demonstrated a gait speed of 0.64 m/s. Based on the [facility]'s web page entitled gait speed: Due to the fact that this patient's gait speed is < 1 m/s they need intervention to reduce fall risk Due to the fact that this patient's gait speed is > 0.1 m/s they are more likely to discharge home Due to the fact that this patients gait speed is between 0.4 m/s and 0.8 m/s they are more likely to be a limited community ambulator CURRENT AM-PAC Basic Mobility Inpatient Short Form Turning over in bed: 4 - No Assistance Moving from lying on back to sittin - No Assistance Moving to and from bed to chair: 4 - No Assistance Sitting/standing from chair: 4 - No Assistance Walk in hospital room: 3 - A Little Assistance Climbing 3-5 steps with a railin - A Little Assistance CURRENT [facility] Mobility Raw Score: 22 CURRENT [facility] Mobility Functional Limitation: 20.91% Impaired in Basic Mobility Interventions: Intervention 1 Intervention Name: Education Sets/Reps/Duration: x 5 min Details: The handout Seated Leg Exercises was provided to the patient on this date. The PT demonstrated the exercises to the patient and instructed the patient to perform 2-3x / day. Intervention 2 Intervention Name: Seated LE exercises Details: Pt performs therapeutic exercise to bilateral LE's AROM x 10 reps x 2 sets of long arc quads and ankle pumps, performed to increase strength and endurance in preparation for improved transfers, balance, and gait performance. Cues for full ROM, technique, and to perform as HEP as able. Assessment & Plan: Pt making good progress towards established plan of care. Patient improving gait distance and speed as seen above, however continues to be limited by endurance deficits, impaired balance/strength, and impaired mobility compared to baseline. Especially limited 2/2 tachycardia, which limited activities patient able to perform on this date. Pt would benefit from additional PT services at this time, and at discharge to increase independence with functional mobility. Patient Instruction/Education this session: Learners: Patient Education provided: Activity outside of therapy, Discharge recommendations, Energy conservation strategies, Fall precautions, Home exercise program Teaching method: Verbal Education/Instruction Learner response: Applies knowledge Learning preferences: Auditory Learning considerations: No barriers/ready to learn Patient Instruction/Education comments: education on expected HR during, pre and post ambulation Plan for next session: trial 5xSTS and stairs as HR allows Acute PT Goals Plan of Care by Maggie Miller PT at 10/07/2024 9:05 AM Version 1 of 1 Problem: PT - General Goals Goal: Supine <-> Sit Transfers - Patient will perform supine to/from sit transfers with modified independence and with use of hospital bed features in order to improve functional mobility and safety. Outcome: Ongoing Goal: Sit <-> Stand Transfers - Patient will perform sit to/from stand transfers with modified independence - independence and straight cane/no device in order to improve functional mobility and safety. Outcome: Progressing Goal: Ambulation - Patient will ambulate 500 feet with modified independence - independence and straight cane/no device to improve ability to safely navigate home and community. Outcome: Progressing Goal: Stairs - Patient will ascend/descend 12 stairs with modified independence, without an assistive device/straight cane, and single railing(s) to improve ability to safely navigate home and community. Outcome: Ongoing PT treatment consisted of the following to progress towards the above goal(s): PT Evaluation and Treatment Time Therapeutic Exercise Time Entry: 11 Gait Training Time Entry: 17 Treating Therapist: Maggie Miller PT Additional Details: PT Co-Eval/Treatment Information Co-evaluation/co-treatment performed?: No simultaneous skilled care performed Assisted by during session: EDITOR MANAGING NEWSPAPER PPE used during patient interaction: gloves Patient location at end of session: chair, RN aware, lines intact Alarms on at end of session: RN aware, none Needs in reach. Time In: 904 Time Out: 932 Total Visit Time: 28 minutes Total Treatment Time (skilled, billable minutes): 28 minutes Upon discontinuation of Acute Care Physical Therapy Services or patient discharge from the hospital this note represents the current Physical Therapy Discharge Summary. 10/07/24804 Airway Clearance Therapy Protocol Pulmonary Status 0 Surgery (This Admission) 3 Chest X-Ray (Within 24 Hours of Assessment) 2 Respiratory Pattern 0 Mental Status 0 Breath Sounds 2 Cough Effectiveness 1 Level of Activity 1 O2 for Sats Greater Than or Equal to 88% 1 Airway Clearance Therapy Total Score 10 Scoring indicates PEP therapy TID. Reevaluated Qday. THORACIC SURGERY PROGRESS NOTE SUBJECTIVE: AF RVR post op, now controlled. Pain well controlled. 3L NC. No air leaks OBJECTIVE: Temp Av.8 F (36.6 C) Min: 97.4 F (36.3 C) Max: 98.3 F (36.8 C)Systolic (24hrs), Av , Min:90 , Max:117 Diastolic (24hrs), Av, Min:52, Max:63 Pulse Av Min: 79 Max: 149 O2 Sat (%): 92 % (10/08 735) O2 Device: nasal cannula (10/08 735) Flow (L/min): 3 (10/07 0700) I/O last 3 completed shifts: In: 2174 [P.O.:250; I.V.:1540.7; IV Piggyback:383.3] Out: 1411 [Urine:875; Other:536] Physical Exam: - General: appears comfortable, no acute distress, laying comfortably in bed - Abdominal: soft, non-distended, appropriately tender on exam - Cardiac: regularly irregular rate and rhythm - Respiratory: no respiratory distress, on RA. Chest tube x2 in place with serosang output. No air leak. - Extremities: Minimal peripheral edema bilaterally Labs: WBC/Hgb/Hct/Plts: 12.03/8.6/26.3/551 (10/07 501) Na/K+/Phos/Mg/Ca: 131/4.1/3.5/1.8/7.5 (10/07 334-10/07 501) Bun/Creat/Cl/CO2/Glucose: 11/0.49/99/24/125 (10/07 334) ASSESSMENT & PLAN: Maxx Forde is a 74 y.o. male with PMHx afib, HTN, GERD who p/w loculated empyema. S/p bedside chest tube 09/30 into lateral pocket and IR pigtail 10/01 into posterior pocket. S/p L VATS 10/06. -Chest tubes to suction for now. -[facility] -Aggressive pulm toilet -Lasix 40 IV X1 -advance to regular diet -Up and out of bed, PT/OT - continue broad spectrum abx, follow OR cultures - continue holding eliquis, OK for DVT ppx - daily CXRs (ordered for tomorrow AM) Discussed with Dr. Erick King MD Cardiothoracic Surgery Resident, PGY3 [id number] 10/07/24 8:02 AM Cosigned by Maria Del Rosario Suarez MD at 10/07/2024 1:37 PM EDT Associated attestation - Maria Del Rosario Suarez MD - 10/07/2024 1:37 PM EDT Thoracic Surgery Attending I reviewed the relevant data, labs, and imaging. The plan was developed mutually at the time of rounds. The above note has been reviewed and I agree with the assessment and plan. Total time spent with patient greater than: 20 Minutes . Doing great, feeling much better overall. Chest tubes with minimal to no air leak. Will keep to suction today then start removing tomorrow. He needs to be aggressively diuresed - to be dry, not normovolemic. Please give IV lasix 40mg IV today and daily until discharge. Appreciate the medicine team's help with his care. New cultures sent from the OR. Maria Del Rosario Suarez MD MPH Images from the original note were not included. [facility] Medicine Daily Progress Note Patient: Maxx Forde, 1950, Physician: Kirt Rosales MD, Attending Physician, Pager #[phone] Length of stay: 7 days. Summary of hospitalization Maxx Forde is a 74 y.o. male with PMH of atrial fibrillation, hypertension, hyperlipidemia, Magallon's esophagus, osteoarthritis admitted to the hospital for left sided empyema, status post chest tube placement by thoracic surgery 09/30/24. Assessment and Plan Left-sided Empyema - suspect 2/2 parapneumonic effusion. Pleural studies from [place] consistent with empyema. - Follow-up cultures and cytology from [place]: gram+ 3+, gram - 1+, prelim alpha hemalytic . Cytology neg for malignant. Consistent with acute inflammation - await pending culture data from outside hospital and here. Stopped empiric Vancomycin, switched from Zosyn to Unasyn. Anticipate at least 4 weeks of antibiotics from source control. - Thoracic surgery placed chest tube on 09/30, but review of images noted the tip of chest tube not in pleural cavity, chest tube removed by Thoracic 10/02. Noted leakage around the previous chest tube site, ostomy bag in place to collect drainage, monitor output. Pigtail placed by IR on 10/01, thoracic surgery completed 3 days of tPA/dornase. Repeat CT chest 10/05 and plan for VATS 10/06/2024 Monitor daily CXR Small apical pneumothorax: Likely related to chest tube. Daily CXR, stable on serial monitoring. continue Chest tube to suction Resistant hiccups: Likely secondary to diaphragmatic irritation. continue Thorazine 25 mg Q4 hours prn Monitor for excessive sedation. Recent Acute Kidney Injury: - creatinine elevated to 1.9 at OSH. Now back to 0.87. Suspect due to poor PO intake. IVF discontinued, continue to monitor. Hypokalemia - replete and monitor. Hyponatremia - - suspect secondary to hypovolemia. Monitor sodium trend. Paroxysmal Atrial Fibrillation ([id number]=5), Only happened once when he had esophageal surgery 1.5 y ago. Since then on Eliquis Holding Apixaban in setting of needing multiple procedures. Continue metoprolol 25mg bid. Monitor telemetry Echo showed normal EF 60-65%. RVSP 29 mm Hg Acute on chronic diastolic heart failure. Mild hypervolemia and peripheral edema. Echo as above. Elevated pro-BNP continue torsemide 20 mg daily. and monitor creatinine, electrolyte and volume status. Hold Torsemide while NPO continue metoprolol Hypertension: discontinued amlodipine due to soft BP, holding parameters placed for metoprolol Hyperlipidemia - switched to atorvastatin and ezetimibe as his combination ezetimibe/simvastatin is non-formulary Magallon's esophagus - continue PPI and Sucralfate DVT prophylaxis with SCD's for now. Disposition: to be determined. . Interval History/Subjective Patient is feeling fine, chest pain is bad at rest, still having hiccups, thorazine is helping some. NPO for surgery today. Objective Vitals: [range] current Temp: [97.3 F (36.3 C)-98.4 F (36.9 C)] 98.3 F (36.8 C) Pulse (Heart Rate): [70-121] 86 Resp Rate: [16-20] 18 BP: (92-117)/(53-63) 104/59 O2 Sat (%): [94 %-97 %] 94 % O2 Device: room air (10/06/24 1626) Flow (L/min): 3 (10/01/24 1645) Intake/Output last 3 shifts: I/O last 3 completed shifts: In: 1191.6 [P.O.:540; I.V.:151.4; IV Piggyback:500.2] Out: 1705 [Urine:1475; Other:230] Constitutional: vital signs noted. oriented to person, place, and time. Cardiovascular: normal rate and regular rhythm. Respiratory: no tachypnea, retractions or cyanosis. diminished air entry left hemithorax Neurological: screening mental status exam normal. Data Review WBC/Hgb/Hct/Plts: 5.76/9.3/28.4/617 (10/06 208) Na/K+/Phos/Mg/Ca: 130/3.7/--/--/7.6 (10/06 208) Bun/Creat/Cl/CO2/Glucose: 14/0.72/96/25/106 (10/06 208) I have reviewed the patient's medical history in detail and updated the computerized patient record. Kirt Rosales MD Senior Network Administrator-Clinical, Division of Hospital Medicine [facility] 10/06/2024 5:05 PM THORACIC SURGERY PROGRESS NOTE SUBJECTIVE: Room air. OR today for VATs decort. OBJECTIVE: Temp Av.5 F (36.4 C) Min: 97.3 F (36.3 C) Max: 97.6 F (36.4 C)Systolic (24hrs), Av , Min:96 , Max:105 Diastolic (24hrs), Av, Min:57, Max:60 Pulse Av.9 Min: 70 Max: 121 O2 Sat (%): 96 % (10/06 152) O2 Device: room air (10/06 152) I/O last 3 completed shifts: In: 2243.8 [P.O.:1480; I.V.:70.8; IV Piggyback:693] Out: 2795 [Urine:2075; Other:720] Physical Exam: - General: appears comfortable, no acute distress, laying comfortably in bed - Abdominal: soft, non-distended, appropriately tender on exam - Cardiac: regular rate and rhythm - Respiratory: no respiratory distress, on RA. Chest tube x1 in place with purulent output. No air leak. Ostomy bag collecting drainage from the old chest tube site. - Extremities: Minimal peripheral edema bilaterally Labs: WBC/Hgb/Hct/Plts: 5.76/9.3/28.4/617 (10/06 208) Na/K+/Phos/Mg/Ca: 130/3.7/--/--/7.6 (10/06 208) Bun/Creat/Cl/CO2/Glucose: 14/0.72/96/25/106 (10/06 208) ASSESSMENT & PLAN: Maxx Forde is a 74 y.o. male with PMHx afib, HTN, GERD who p/w loculated empyema. S/p bedside chest tube 09/30 into lateral pocket and IR pigtail 10/01 into posterior pocket. -OR today for VATS decort -Chest tubes to suction for now. - continue broad spectrum abx - continue holding eliquis - further plans pending OR - daily CXRs (ordered for tomorrow AM) Carter King MD Cardiothoracic Surgery Resident, PGY3 [id number] 10/06/24 6:37 AM Cosigned by Maria Del Rosario Suarez MD at 10/06/2024 5:22 PM EDT Images from the original note were not included. DIVISION OF INFECTIOUS DISEASES FOLLOW UP NOTE - TEAM 5 SUBJECTIVE/INTERVAL HISTORY: Pt is a 74 y.o. male being followed by ID for L empyema. He denies cough or dyspnea. (+) hiccups. No fevers or chills. No abdominal pain, nausea, vomiting, or diarrhea. Family at bedside. REVIEW OF SYSTEMS: As above Fall Risk: Assessed for patient fall risk and communicated pertinent findings to multidisciplinary team. MEDICATIONS reviewed, antimicrobials include: Acetaminophen 975 mg Oral Q8H 0800/1600/2200 [Held by provider] amLODIPine 10 mg Oral Daily ammonium lactate 1 Application Topical Daily Atorvastatin 10 mg Oral Daily Ezetimibe 10 mg Oral Daily Gabapentin 100 mg Oral TID lidocaine 1 patch Transdermal Q24H Metoprolol 25 mg Oral Q12H Pantoprazole 40 mg Oral BID piperacillin-tazobactam 4.5 g Intravenous Q8HNS Polyethylene glycol 17 g Oral Q12H Sucralfate 1 g Oral Q6H Torsemide 20 mg Oral Daily vancomycin 1,250 mg Intravenous Q24H PHYSICAL EXAM: Vitals: BP 104/57 (BP Location: Right arm, BP Position: Sitting) Pulse 94 Temp 97.5 F (36.4 C) (Oral) Resp 20 Ht 1.803 m (5' 10.98) Wt 74.7 kg (164 lb 10.9 oz) SpO2 96% BMI 22.98 kg/m General: The patient is a well-developed, well-nourished male in no apparent distress. HEENT: Head is normocephalic and atraumatic. Conjunctiva clear. Neck: Supple. Heart: Regular, rate and rhythm without murmurs appreciated. Lungs: Clear to auscultation bilaterally with no wheezes, rhonchi or rales noted. L lateral chest tube noted Abdomen: Soft, nontender, and nondistended. Normal bowel sounds x4 quads. Extremities: Without edema. Neurologic: No focal deficits appreciated on gross motor exam. Alert and cooperative. Skin: No rash noted on exposed skin. Psych: Pleasant mood with appropriate affect Central Line Type: n/a LABS: WBC/Hgb/Hct/Plts: 4.99/9.1/27.1/571 (10/06 215) Lab Results Component Value Date RBCDISTRIBU 13.6 10/05/2024 GRNLOCYT 87.0 09/29/2024 LYMPHOCYT 4.7 09/29/2024 MONOCYTELEC 5.6 09/29/2024 EOSINOPHILS 0.0 09/29/2024 BASOPHILS 0.2 09/29/2024 LYMPHOCYTABS 0.78 (L) 09/29/2024 EOSINOPHLABS <0.04 09/29/2024 PLATELET 571 (H) 10/05/2024 MPV 8.8 10/05/2024 Bun/Creat/Cl/CO2/Glucose: 16/0.73/97/25/95 (10/06 215) Na/K+/Phos/Mg/Ca: 130/3.6/--/--/-- (10/06 215) Lab Results Component Value Date ALT 16 09/29/2024 AST 19 09/29/2024 ALKPHOS 204 (H) 09/29/2024 BILITOTAL 0.8 09/29/2024 BILIDIRECT 0.3 (H) 09/29/2024 Urinalysis Lab Results Component Value Date SPGRVTYUR 1.019 09/29/2024 GLUCOSEURINE Negative 09/29/2024 KETONESURINE Negative 09/29/2024 BLOODURINE Negative 09/29/2024 NITRITESURIN Negative 09/29/2024 LEUKOCESTUR Negative 09/29/2024 WBCURINE 0 - 5 09/29/2024 RBCURINE 3-5 (A) 09/29/2024 BACTERIAURIN ABSENT 09/29/2024 Microbiology: OSH cx; 09/28 Bcx- NGTD 09/28 thoracentesis - Strep intermedius, Parvimonas, Schaalia Canis Cytology neg for malignant. Consistent with acute inflammation [facility] cx: 09/30 CT culture - Strep intermedius, anaerobes 10/01 Aspirate Strep intermedius Imaging: CT CHEST WITHOUT CONTRAST Final Result IMPRESSION: 1. Significantly decreased size of moderately large multiloculated left pleural effusion after chest tube placement, now with new small left pneumothorax and improved left lung atelectasis. 2. New small right pleural effusion and mild adjacent atelectasis. 3. Mildly enlarging small pericardial effusion. SSMENT: Maxx Forde is a 74 y.o. male with a PMH :of atrial fibrillation on Eliquis, HTN, HLD, Magallon's esophagus, hiatal hernia repair and OA. He was recently evaluated at OSH ED 09/19 for acute sharp chest pain. CT showed 5 cm mass vs loculation. Pulmonary follow up and had thoracentesis 09/28 and started on IV vanc/zosyn. He was transferred to [facility] for thoracic surgery evaluation who placed a chest tube 09/30. Verified with OSH that all cultures have only grown strep intermedius and anaerobes. Repeat CT chest completed today to determine potential need for VATS procedure. Plan to transition antibiotics to amp/sulbactam. Patient and family updated on the plan. Final length of treatment TBD. L empyema Magallon's esophagus Hx hiatal hernia repair High risk medication that requires monitoring for toxicity. -Estimated Creatinine Clearance: 94 mL/min (by C-G formula based on SCr of 0.73 mg/dL). RECOMMENDATIONS: Discontinue IV vancomycin Discontinue IV pip/tazo Begin amp/sulbactam 3 gm IV every 6 hrs Follow up on thoracic surgery plan. . Recommendations provided to primary team. ID Team 5 will continue to follow. Please call with questions. ID ATTENDING: Dr Toni Thompson APRN, MS, Adult SHEAR GRINDER OPERATOR HELPER-C Infectious Diseases Pager [phone] For urgent calls overnight or during the weekend, please page IM Consult Service Infectious Diseases on webexchange Cosigned by Solitario Arguelles MD at 10/05/2024 5:05 PM EDT Associated attestation - Solitario Arguelles MD - 10/05/2024 5:05 PM EDT Attending Attestation I have seen and examined the patient independent of the advanced practice provider today. I have reviewed the patient's vital signs, physical exam findings, labs, problem list, and any pertinent radiographic images with the advanced practice provider in attending rounds. I discussed the patient's current problems and developed the plan. I have discussed the plan with the patient and all of the patient's questions were answered. I reviewed and edited this note. I personally performed all aspects of the medical decision making for this encounter. I have reviewed and verified this documentation and it accurately reflects our care. Maxx Forde is 74 y.o. male with left empyema s/p thoracentesis and chest tube placement with polymicrobial growth. Repeat CT today with significant decrease in size of loculated left effusion as well as small pericardial effusion. Cultures with polymicrobial growth, including Streptococcus spp and anaerobes, here and at [facility]. He has improved on vancomycin and piperacillin-tazobactam; however, based on cultures, can narrow to ampicillin-sulbactam. Of note, [facility] culture with Schaalia spp identified, which is similar to Actinomyces and therefore, may benefit from VATS and prolonged antibiotic course. I query that aspiration related to below pathology could have predisposed. Left empyema s/p chest tube with polymicrobial growth, pending consideration for possible VATS Small pericardial effusion Magallon's esophagus History of hiatal hernia repair My clinical assessment included addressing complex issues in the following area(s): Public Health Investigation, Analysis, and Testing: Involves detailed patient history assessments, advanced diagnostic evaluations, and collaboration with public health agencies for contact tracing and diagnostic testing. Complex Antimicrobial Therapy Counseling and Treatment: Focuses on educating patients and families on antimicrobial stewardship, addressing resistance issues, and tailoring therapy options based on public health data. Plan: Given cultures, can transition to ampicillin-sulbactam 3g every 6 hours. Appreciate Thoracic Surgery evaluation and consideration for VATS. The isolated Schaalia sp. was previously classified as an Actinomyces species so further source control via VATS may be helpful along with prolonged antibiotic therapy. Obtain chronic hepatitis panel and HIV ag/ab for screening for completeness. Recommendations have been communicated with primary team. ID Team 5 will continue to follow. If you have any questions, please reach out to the ID Team 5 . The ID Team pagers are available - Saturday through Saturday from 7:00am to 6:00pm. For emergent or after hour issues, please call the on-call/1st-call ID fellow pager. [facility] - [facility] Infectious Disease - Solitario Arguelles MD Clinical Senior Network Administrator Division of Infectious Diseases Pager: [phone] Images from the original note were not included. Hospital Medicine Daily Progress Note Patient: Maxx Forde, 1950, Physician: Kirt Rosales MD, Attending Physician, Pager #[phone] Length of stay: 6 days. Summary of hospitalization Maxx Forde is a 74 y.o. male with PMH of atrial fibrillation, hypertension, hyperlipidemia, Magallon's esophagus, osteoarthritis admitted to the hospital for left sided empyema, status post chest tube placement by thoracic surgery 09/30/24. Assessment and Plan Left-sided Empyema - suspect 2/2 parapneumonic effusion. Pleural studies from [place] consistent with empyema. - Follow-up cultures and cytology from [place]: gram+ 3+, gram - 1+, prelim alpha hemalytic . Cytology neg for malignant. Consistent with acute inflammation - await pending culture data from outside hospital and here. - continue empiric Vancomycin and Zosyn, Patient will required very close monitoring of renal functions and trough while on Vancomycin. - Thoracic surgery placed chest tube on 09/30, but review of images noted the tip of chest tube not in pleural cavity, chest tube removed by Thoracic 10/02. Noted leakage around the previous chest tube site, ostomy bag in place to collect drainage, monitor output. Pigtail placed by IR on 10/01, thoracic surgery doing tPA for now day 3/3 of tPA/dornase today. ID on board. Repeat CT chest today and pending CT result may require surgical intervention. Monitor daily CXR Small apical pneumothorax: Likely related to chest tube. Daily CXR, stable on serial monitoring. continue Chest tube to suction Resistant hiccups: Likely secondary to diaphragmatic irritation. continue Thorazine 25 mg Q4 hours prn Monitor for excessive sedation. Recent Acute Kidney Injury: - creatinine elevated to 1.9 at OSH. Now back to 0.87. Suspect due to poor PO intake. IVF discontinued, continue to monitor. Hypokalemia - replete and monitor. Hyponatremia - - suspect secondary to hypovolemia. Monitor sodium trend. Paroxysmal Atrial Fibrillation ([id number]), Only happened once when he had esophageal surgery 1.5 y ago. Since then on Eliquis Holding Apixaban in setting of needing multiple procedures. Continue metoprolol 25mg bid. Monitor telemetry Echo showed normal EF 60-65%. RVSP 29 mm Hg Acute on chronic diastolic heart failure. Mild hypervolemia and peripheral edema. Echo as above. Elevated pro-BNP continue torsemide 20 mg daily. and monitor creatinine, electrolyte and volume status. continue metoprolol Hypertension: discontinued amlodipine due to soft BP, holding parameters placed for metoprolol Hyperlipidemia - switched to atorvastatin and ezetimibe as his combination ezetimibe/simvastatin is non-formulary Magallon's esophagus - continue PPI and Sucralfate DVT prophylaxis with SCD's for now. Disposition: home when improved and medically stable. Interval History/Subjective Patient is feeling fine, shortness of breath slightly better, still having recurrent hiccups, remains afebrile, No chest pain at rest. Objective Vitals: [range] current Temp: [97.3 F (36.3 C)-98.1 F (36.7 C)] 97.4 F (36.3 C) Pulse (Heart Rate): [71-92] 85 Resp Rate: [16-20] 20 BP: (95-116)/(56-67) 105/57 O2 Sat (%): [94 %-98 %] 95 % O2 Device: room air (10/05/24 0912) Flow (L/min): 3 (10/01/24 1645) Intake/Output last 3 shifts: I/O last 3 completed shifts: In: 2849.8 [P.O.:1050; I.V.:1305.6; IV Piggyback:494.2] Out: 3390 [Urine:2500; Other:890] Constitutional: vital signs noted. oriented to person, place, and time. Cardiovascular: normal rate and regular rhythm. Respiratory: no tachypnea, retractions or cyanosis. diminished air entry left hemithorax Neurological: screening mental status exam normal. Data Review WBC/Hgb/Hct/Plts: 4.99/9.1/27.1/571 (10/06 215) Na/K+/Phos/Mg/Ca: 130/3.6/--/--/-- (10/06 215) Bun/Creat/Cl/CO2/Glucose: 16/0.73/97/25/95 (10/06 215) I have reviewed the patient's medical history in detail and updated the computerized patient record. Kirt Rosales MD Senior Network Administrator-Clinical, Division of Hospital Medicine [facility] 10/05/2024 12:12 PM Care Management Progress Note Treatment: Chest Tubes in place/Daily CXR's/Broad spectrum ATB/CT chest Discharge Plan: Home with self care Discharge Date: TBD Transportation: Private Vehicle Cynthia Jacobson RN BSN AC Associate Data Scientist THORACIC SURGERY PROGRESS NOTE SUBJECTIVE: Room air. Pain well controlled. [address], serosang. No air leak. Awaiting CXR. WBC normalized. OBJECTIVE: Temp Av.7 F (36.5 C) Min: 97.3 F (36.3 C) Max: 98.2 F (36.8 C)Systolic (24hrs), Av , Min:95 , Max:116 Diastolic (24hrs), Av, Min:54, Max:67 Pulse Av.5 Min: 71 Max: 86 O2 Sat (%): 94 % (10/05 05) I/O last 3 completed shifts: In: 2849.8 [P.O.:1050; I.V.:1305.6; IV Piggyback:494.2] Out: 3390 [Urine:2500; Other:890] Physical Exam: - General: appears comfortable, no acute distress, laying comfortably in bed - Abdominal: soft, non-distended, appropriately tender on exam - Cardiac: regular rate and rhythm - Respiratory: no respiratory distress, on RA. Chest tubes in place with purulent output. No air leak. Ostomy bag collecting drainage from the old chest tube site. - Extremities: Minimal peripheral edema bilaterally Labs: WBC/Hgb/Hct/Plts: 4.99/9.1/27.1/571 (10/06 215) Na/K+/Phos/Mg/Ca: 130/3.6/--/--/-- (10/06 215) Bun/Creat/Cl/CO2/Glucose: 16/0.73/// (10/06 215) ASSESSMENT & PLAN: Maxx Forde is a 74 y.o. male with PMHx afib, HTN, GERD who p/w loculated empyema. S/p bedside chest tube 09/30 into lateral pocket and IR pigtail 10/01 into posterior pocket. -Follow-up AM CXR, will consider additional CT. -- may require VATS decortication this week pending above -Chest tubes to suction for now. - continue broad spectrum abx - continue holding eliquis - we will continue to follow - daily CXRs (ordered for tomorrow AM) Carter King MD Cardiothoracic Surgery Resident, PGY3 [id number] 10/05/24 7:06 AM Cosigned by Maria Del Rosario Suarez MD at 10/05/2024 7:49 AM EDT Images from the original note were not included. [facility] Medicine Daily Progress Note Patient: Maxx Forde, 1950, Physician: Kirt Rosales MD, Attending Physician, Pager #[phone] Length of stay: 5 days. Summary of hospitalization Maxx Forde is a 74 y.o. male with PMH of atrial fibrillation, hypertension, hyperlipidemia, Magallon's esophagus, osteoarthritis admitted to the hospital for left sided empyema, status post chest tube placement by thoracic surgery 09/30/24. Assessment and Plan Left-sided Empyema - suspect 2/2 parapneumonic effusion. Pleural studies from [place] consistent with empyema. - Follow-up cultures and cytology from [place]: gram+ 3+, gram - 1+, prelim alpha hemalytic . Cytology neg for malignant. Consistent with acute inflammation - await pending culture data from outside hospital and here. - continue empiric Vancomycin and Zosyn, Patient will required very close monitoring of renal functions and trough while on Vancomycin. - Thoracic surgery placed chest tube on 09/30, but review of images noted the tip of chest tube not in pleural cavity, chest tube removed by Thoracic 10/02. Noted leakage around the previous chest tube site, ostomy bag in place to collect drainage, monitor output. Pigtail placed by IR on 10/01, thoracic surgery doing tPA for now day 3/3 of tPA/dornase today. ID on board. May require VATS next week pending course. daily CXR for now - improving CXR Small apical pneumothorax: Likely related to chest tube. Daily CXR, stable on serial monitoring. continue Chest tube to suction Resistant hiccups: Likely secondary to diaphragmatic irritation. continue Thorazine 25 mg Q4 hours prn Monitor for excessive sedation. Recent Acute Kidney Injury: - creatinine elevated to 1.9 at OSH. Now back to 0.87. Suspect due to poor PO intake. IVF discontinued, continue to monitor. Hypokalemia - replete and monitor. Hyponatremia - - suspect secondary to hypovolemia. Monitor sodium trend. Paroxysmal Atrial Fibrillation ([id number]), Only happened once when he had esophageal surgery 1.5 y ago. Since then on Eliquis Holding Apixaban in setting of needing multiple procedures. Continue metoprolol 25mg bid. Monitor telemetry Echo showed normal EF 60-65%. RVSP 29 mm Hg Mild hypervolemia and peripheral edema. Echo as above. Check pro-BNP Start low dose diuretics and monitor creatinine, electrolyte and volume status. Hypertension: discontinued amlodipine due to soft BP, holding parameters placed for metoprolol Hyperlipidemia - switched to atorvastatin and ezetimibe as his combination ezetimibe/simvastatin is non-formulary Magallon's esophagus - continue PPI and Sucralfate DVT prophylaxis with SCD's for now. Disposition: home when improved and medically stable. Interval History/Subjective Patient is feeling fine at rest, still having plenty of output from the site of anterior chest tube (currently removed), tPA/dornase day 3/ today. Objective Vitals: [range] current Temp: [97.5 F (36.4 C)-99 F (37.2 C)] 98.2 F (36.8 C) Pulse (Heart Rate): [77-99] 79 Resp Rate: [16-20] 18 BP: (97-128)/(54-78) 97/54 O2 Sat (%): [92 %-97 %] 94 % O2 Device: room air (10/03/24 2100) Flow (L/min): 3 (10/01/24 1645) Intake/Output last 3 shifts: I/O last 3 completed shifts: In: 406.7 [IV Piggyback:406.7] Out: 2089 [Urine:1500; Other:590] Constitutional: vital signs noted. oriented to person, place, and time. Cardiovascular: normal rate and regular rhythm. Respiratory: no tachypnea, retractions or cyanosis. diminished air entry left hemithorax Neurological: screening mental status exam normal. Data Review WBC/Hgb/Hct/Plts: 6.74/9.9/29.3/611 (10/04 558) Bun/Creat/Cl/CO2/Glucose: --/0.68/--/--/-- (10/04 558) I have reviewed the patient's medical history in detail and updated the computerized patient record. Kirt Rosales MD Senior Network Administrator-Clinical, Division of Hospital Medicine [facility] 10/04/2024 11:44 AM THORACIC SURGERY PROGRESS NOTE SUBJECTIVE: CXR markedly improved. 590 ml out over 24 hours draining from chest tube site and chest tube combined. He is doing well. NADemetraON. S/p IR pigtail 10/01. OBJECTIVE: Temp Av.3 F (36.8 C) Min: 97.5 F (36.4 C) Max: 99 F (37.2 C)Systolic (24hrs), Av , Min:90 , Max:128 Diastolic (24hrs), Av, Min:55, Max:78 Pulse Av.9 Min: 77 Max: 99 O2 Sat (%): 93 % (10/04 554) O2 Device: room air (10/03 2099) I/O last 3 completed shifts: In: 406.7 [IV Piggyback:406.7] Out: 2089 [Urine:1500; Other:590] Physical Exam: - General: appears comfortable, no acute distress, laying comfortably in bed - Abdominal: soft, non-distended, appropriately tender on exam - Cardiac: regular rate and rhythm - Respiratory: no respiratory distress, on RA. Chest tubes in place with purulent output. No air leak. Ostomy bag collecting drainage from the old chest tube site. - Extremities: Minimal peripheral edema bilaterally Labs: WBC/Hgb/Hct/Plts: 6.74/9.9/29.3/611 (10/04 558) Bun/Creat/Cl/CO2/Glucose: --/0.68/--/--/-- (10/04 558) ASSESSMENT & PLAN: Maxx Forde is a 74 y.o. male with PMHx afib, HTN, GERD who p/w loculated empyema. S/p bedside chest tube 09/30 into lateral pocket and IR pigtail 10/01 into posterior pocket. Please keep chest tubes to suction. Maximize wall suction as suction is controlled by the pleurevac. Chest tubes this AM were not on suction. Plan for TPA Dornase today for the completion of third dose. Will discuss in AM utility of repeat CT Chest. -- may require VATS decortication next week pending response - continue broad spectrum abx - continue holding eliquis - we will continue to follow - daily CXRs (ordered for tomorrow AM) Pati Hinton MD, PhD [id number] Department of Pharmacy Pharmacokinetics Progress Note Patient: Maxx Forde Room/Bed: [facility] Assessment and Plan: Based upon drug level assessment and interpretation (steady state), no changes to vancomycin dose or dosing interval are indicated at this time. A pharmacist will continue to follow and order drug levels and adjust dosing as clinically appropriate. Vancomycin regimen at time of level: Vancomycin 1250 mg IV every 24 hours to start this morning due to appropriate clearance of medication after supra therapeutic level. Last Dose Administered: Dose: Date: Time: 1500 mg 08 1830 Levels: 9.7 mcg/mL drawn at 0559 on 10/04. Level was a random level. Most Recent Labs: WBC Count Date Value Ref Range Status 10/04/2024 6.74 3.73 - 10.10 K/uL Final BUN Date Value Ref Range Status 09/29/2024 77 (H) 7 - 25 mg/dL Final Creatinine Date Value Ref Range Status 10/04/2024 0.68 (L) 0.70 - 1.30 mg/dL Final I/O last 3 completed shifts: In: 406.7 [IV Piggyback:406.7] Out: 2089 [Urine:1500; Other:590] Estimated Creatinine Clearance: 101 mL/min (A) (by C-G formula based on SCr of 0.68 mg/dL (L)). Ongoing Vancomycin Monitoring: The following trough goal is recommended for ongoing therapy based on the suspected/confirmed source of infection and today s calculations: Goal trough range: 15-20 mcg/mL If therapy is to be continued after discharge, please contact pharmacy for appropriate dosing. Please feel free to contact me with any further questions. Name: Clotilde Galvin RPH Phone: [phone] Date/Time: 10/04/2024 7:07 AM Images from the original note were not included. Hospital Medicine Daily Progress Note Patient: Maxx Forde, 1950, Physician: Kirt Rosales MD, Attending Physician, Pager #[phone] Length of stay: 4 days. Summary of hospitalization Maxx Forde is a 74 y.o. male with PMH of atrial fibrillation, hypertension, hyperlipidemia, Magallon's esophagus, osteoarthritis admitted to the hospital for left sided empyema, status post chest tube placement by thoracic surgery 09/30/24. Assessment and Plan Left-sided Empyema - suspect 2/2 parapneumonic effusion. Pleural studies from [place] consistent with empyema. - Follow-up cultures and cytology from [place]: gram+ 3+, gram - 1+, prelim alpha hemalytic . Cytology neg for malignant. Consistent with acute inflammation - await pending culture data from outside hospital and here. - continue empiric Vancomycin and Zosyn, Closely follow renal functions and trough while on Vancomycin. - Thoracic surgery placed chest tube on 09/30, but review of images noted the tip of chest tube not in pleural cavity, chest tube removed by Thoracic 10/02. Noted leakage around the previous chest tube site, will continue to monitor. Pigtail placed by IR on 10/01, thoracic surgery doing tPA for now. ID on board. May require VATS next week pending course. daily CXR for now. Small apical pneumothorax: Likely related to chest tube. Daily CXR, remains stable on serial X rays. continue Chest tube to suction Recent Acute Kidney Injury: - creatinine elevated to 1.9 at OSH. Now back to 0.87. Suspect due to poor PO intake. IVF discontinued, continue to monitor. Hypokalemia - replete and monitor. Hyponatremia - - suspect secondary to hypovolemia. Monitor sodium trend. Paroxysmal Atrial Fibrillation ([id number]), Only happened once when he had esophageal surgery 1.5 y ago. Since then on Eliquis Holding Apixaban in setting of needing multiple procedures. Continue metoprolol 25mg bid. Monitor telemetry Echo awaited. Essential HTN - discontinued amlodipine due to soft BP, holding parameters placed for metoprolol Hyperlipidemia - switched to atorvastatin and ezetimibe as his combination ezetimibe/simvastatin is non-formulary Magallon's esophagus - continue PPI and Sucralfate DVT prophylaxis with SCD's for now. Disposition: home when improved and medically stable. Interval History/Subjective Patient is feeling fine at rest, noted large quantity leakage around the previous chest tube site. Remains afebrile. No chest pain at rest. Objective Vitals: [range] current Temp: [97.6 F (36.4 C)-98.8 F (37.1 C)] 97.6 F (36.4 C) Pulse (Heart Rate): [79-97] 97 Resp Rate: [16-19] 16 BP: (90-115)/(55-70) 100/66 O2 Sat (%): [93 %-97 %] 97 % O2 Device: room air (10/03/24 1353) Flow (L/min): 3 (10/01/24 1645) Intake/Output last 3 shifts: I/O last 3 completed shifts: In: 120 [P.O.:120] Out: 1680 [Urine:1220; Other:460] Constitutional: vital signs noted. oriented to person, place, and time. Cardiovascular: normal rate and regular rhythm. Respiratory: no tachypnea, retractions or cyanosis. diminished air entry left hemithorax Neurological: screening mental status exam normal. Data Review Bun/Creat/Cl/CO2/Glucose: --/0.75/--/--/-- (10/04 247) I have reviewed the patient's medical history in detail and updated the computerized patient record. Kirt Rosales MD Senior Network Administrator-Clinical, Division of Hospital Medicine [facility] 10/03/2024 3:51 PM THORACIC SURGERY PROGRESS NOTE SUBJECTIVE: No acute events overnight. Reports he feels well. Afebrile, on room air. Pain controlled. S/p IR pigtail 10/01. Purulent output 590 mL OBJECTIVE: Temp Av.1 F (36.7 C) Min: 97.8 F (36.6 C) Max: 98.8 F (37.1 C)Systolic (24hrs), Av , Min:84 , Max:115 Diastolic (24hrs), Av, Min:57, Max:63 Pulse Av Min: 79 Max: 111 O2 Sat (%): 93 % (10/03 536) O2 Device: room air (10/02 2199) I/O last 3 completed shifts: In: 120 [P.O.:120] Out: 1320 [Urine:770; Other:550] Physical Exam: - General: appears comfortable, no acute distress, laying comfortably in bed - Abdominal: soft, non-distended, appropriately tender on exam - Cardiac: regular rate and rhythm - Respiratory: no respiratory distress, on RA. Chest tubes in place with purulent output. No air leak. - Extremities: Minimal peripheral edema bilaterally Labs: Bun/Creat/Cl/CO2/Glucose: --/0.75/--/--/-- (10/04 247) ASSESSMENT & PLAN: Maxx Forde is a 74 y.o. male with PMHx afib, HTN, GERD who p/w loculated empyema. S/p bedside chest tube 09/30 into lateral pocket and IR pigtail 21 into posterior pocket. Please keep chest tubes to suction. Maximize wall suction as suction is controlled by the pleurevac. Chest tubes this AM were not on suction. Plan for TPA Dornase today. -- may require VATS decortication next week pending response - continue broad spectrum abx - continue holding eliquis - we will continue to follow - daily CXRs (ordered for tomorrow AM) Pati Hinton MD, PhD [id number] Department of Pharmacy Pharmacokinetics Progress Note Patient: Maxx Forde Room/Bed: [facility]4 Assessment and Plan: Based upon drug level assessment and interpretation (steady state), I have changed the vancomycin dose and/or dosing interval to 1250 mg IV every 24 hours to start at 0600 on 10/04 after ensuring appropriate vancomycin clearance via 10/04 0500 vancomycin level check. A pharmacist will continue to follow and order drug levels and adjust dosing as clinically appropriate. I have modified the orders in IS to reflect the above plan. Vancomycin regimen at time of level: Vancomycin 1500 mg IV every 12 hours Last Dose Administered: Dose: Date: Time: 1500 mg 10/02 1830 Levels: 45.5 mcg/mL drawn at 0525 on 10/03. Level was a trough. Most Recent Labs: WBC Count Date Value Ref Range Status 09/30/2024 16.18 (H) 3.73 - 10.10 K/uL Final BUN Date Value Ref Range Status 09/29/2024 77 (H) 7 - 25 mg/dL Final Creatinine Date Value Ref Range Status 10/03/2024 0.75 0.70 - 1.30 mg/dL Final I/O last 3 completed shifts: In: 1401.1 [P.O.:820; IV Piggyback:581.1] Out: 1820 [Urine:970; Other:850] Estimated Creatinine Clearance: 91 mL/min (by C-G formula based on SCr of 0.75 mg/dL). Ongoing Vancomycin Monitoring: The following trough goal is recommended for ongoing therapy based on the suspected/confirmed source of infection and today s calculations: Goal trough range: 15-20 mcg/mL If therapy is to be continued after discharge, please contact pharmacy for appropriate dosing. Please feel free to contact me with any further questions. Name: Oleg Awan RPH Phone: [phone] Date/Time: 10/03/2024 6:44 AM Images from the original note were not included. Hospital Medicine Daily Progress Note Patient: Maxx Forde, 1950, Physician: Kirt Rosales MD, Attending Physician, Pager #[phone] Length of stay: 3 days. Summary of hospitalization Maxx Forde is a 74 y.o. male with PMH of atrial fibrillation, hypertension, hyperlipidemia, Magallon's esophagus, osteoarthritis admitted to the hospital for left sided empyema, status post chest tube placement by thoracic surgery 09/30/24. Assessment and Plan Left-sided Empyema - suspect 2/2 parapneumonic effusion. Pleural studies from [place] consistent with empyema. - Follow-up cultures and cytology from [place]: gram+ 3+, gram - 1+, prelim alpha hemalytic . Cytology neg for malignant. Consistent with acute inflammation - await pending culture data from outside hospital and here. - continue empiric Vancomycin and Zosyn, Closely follow renal functions and trough while on Vancomycin. - Thoracic surgery placed chest tube on 09/30, but review of images noted the tip of chest tube not in pleural cavity, chest tube removed by Thoracic 10/02. Pigtail placed by IR on 10/01, status post tPA. ID on board. May require VATS next week pending course. daily CXR for now. Small apical pneumothorax: Likely related to chest tube. Daily CXR Chest tube to suction Recent Acute Kidney Injury: - creatinine elevated to 1.9 at OSH. Now back to 0.87. Suspect due to poor PO intake. IVF discontinued, continue to monitor. Hypokalemia - replete and monitor. Hyponatremia - - suspect secondary to hypovolemia. Monitor sodium trend. Paroxysmal Atrial Fibrillation ([id number]), Only happened once when he had esophageal surgery 1.5 y ago. Since then on Eliquis Holding Apixaban in setting of needing multiple procedures. Continue metoprolol 25mg bid. Monitor telemetry Echo awaited. Essential HTN - discontinued amlodipine due to soft BP, holding parameters placed for metoprolol Hyperlipidemia - switched to atorvastatin and ezetimibe as his combination ezetimibe/simvastatin is non-formulary Magallon's esophagus - continue PPI and Sucralfate DVT prophylaxis with SCD's for now. Disposition: to be determined Interval History/Subjective Patient is feeling fine at rest, reported 6/10 chest pain this afternoon, improved after chest tube removed. BP soft periodically. Objective Vitals: [range] current Temp: [97.5 F (36.4 C)-98.5 F (36.9 C)] 97.9 F (36.6 C) Pulse (Heart Rate): [79-111] 111 Resp Rate: [18-22] 18 BP: (84-115)/(50-66) 109/59 O2 Sat (%): [90 %-97 %] 94 % O2 Device: room air (10/02/24 1452) Flow (L/min): 3 (10/01/24 1645) Intake/Output last 3 shifts: I/O last 3 completed shifts: In: 1281.1 [P.O.:700; IV Piggyback:581.1] Out: 2985 [Urine:925; Other:2059] Constitutional: vital signs noted. oriented to person, place, and time. Cardiovascular: normal rate and regular rhythm. Respiratory: no tachypnea, retractions or cyanosis. diminished air entry left hemithorax Neurological: screening mental status exam normal. Data Review Bun/Creat/Cl/CO2/Glucose: --/0.71/--/--/-- (10/02 321) I have reviewed the patient's medical history in detail and updated the computerized patient record. Kirt Rosales MD Senior Network Administrator-Clinical, Division of Hospital Medicine [facility] 10/02/2024 5:09 PM THORACIC SURGERY PROGRESS NOTE SUBJECTIVE: No acute events overnight. Reports he feels well. Afebrile, on room air. Pain controlled. S/p IR pigtail 10/01. Both CT without leak, holding suction, purulent output. Lateral with 178 cc, posterior with 1540cc output at time of rounds. OBJECTIVE: Temp Av F (36.7 C) Min: 97.5 F (36.4 C) Max: 98.5 F (36.9 C)Systolic (24hrs), Av , Min:79 , Max:137 Diastolic (24hrs), Av, Min:45, Max:80 Pulse Av.3 Min: 79 Max: 111 O2 Sat (%): 97 % (10/02 09) O2 Device: room air (10/02 07) I/O last 3 completed shifts: In: 1281.1 [P.O.:700; IV Piggyback:581.1] Out: 2893 [Urine:1175; Other:1718] Physical Exam: - General: appears comfortable, no acute distress, laying comfortably in bed - Abdominal: soft, non-distended, appropriately tender on exam - Cardiac: regular rate and rhythm - Respiratory: no respiratory distress, on RA. Chest tubes in place with purulent output. No air leak. - Extremities: Minimal peripheral edema bilaterally Labs: Bun/Creat/Cl/CO2/Glucose: --/0.71/--/--/-- (10/02 0322) ASSESSMENT & PLAN: Maxx Forde is a 74 y.o. male with PMHx afib, HTN, GERD who p/w loculated empyema. S/p bedside chest tube 09/30 into lateral pocket and IR pigtail 10/01 into posterior pocket. - Plan for Thoracic to tPA/dornase pigtail today -- may require VATS decortication next week pending response - continue broad spectrum abx - continue holding eliquis - we will continue to follow - daily CXRs (ordered for tomorrow AM) Discussed plan of care with attending surgeon, Dr. Suarez. Primary team notified of above. Marcello Jeter MD Vascular Surgery PGY-1 Pager: [phone] -Epic chat is not a reliable method of communication with a surgical service for urgent needs -Please note the person who wrote this note may be off service, post call, or otherwise unavailable Cosigned by Maria Del Rosario Suarez MD at 10/05/2024 7:49 AM EDT Care Management Progress Note Treatment: Chest Tubes in place/Daily CXR's/Broad spectrum ATB Discharge Plan: Home with self care Discharge Date: Transportation: Private Vehicle Cynthia Jacobson [employer] Associate Data Scientist Acute Physical Therapy Evaluation Prior Gross Functional Mobility: independent Current AM-PAC score(s): CURRENT AM-PAC Mobility Raw Score: 19 Based on the above AM-PAC score(s) and PT clinical judgment, patient is a good candidate for discharge to Home with Home Health Barriers to discharge home: Patient unable to navigate stairs to enter home, Patient needs assistance with functional mobility Mobility equipment available at home: none used ADL equipment available at home: shower chair, grab bars Equipment needed for discharge: standard cane (pt fitted for, instructed in use and issued straight cane for discharge to home and for use while admitted.) Current therapy frequency recommendation in acute: PT Therapy Frequency: 5 times a week Precautions and Weightbearing Status: Existing Precautions/Restrictions: fall Lines/Tubes/Drains (Rehab Status): Chest tube (x 2 on left to wall suction) Patient Safety Communication Prior to Visit: Nursing Subjective: pt pleasant, agreeable to PT session. pt very nice per staff psychiatrist. Pain: General Pain Documentation (Adult, OB, Peds) Presence of Pain: denies pain/discomfort Presence of Pain Score (Auto-calculated): 0 Home Setting Residence: House Lives With: spouse First floor setup: walk-in shower Second floor setup: bedroom, tub shower Number of stairs to enter home: 2 Number of stairs in home: 12 Stair Railings at Home: interior - with rail Mobility Equipment Available: none used ADL Equipment Available: shower chair, grab bars Previous Level of Function Gross Functional Mobility: independent Objective/Observation: Vitals/Vitals Responses to Treatment: Vitals not assessed this session; no adverse event to warrant vitals assessment. O2 Device: room air Cognition Overall Cognitive Status: Within Functional Limits Arousal/Alertness: Appropriate responses to stimuli Orientation Level: Oriented X4 Following Commands: Follows all commands and directions without difficulty Vision Screen Currently wearing corrective lenses: Yes Visual Impairments Observed?: No Speech Speech: no gross deficits noted Successful Methods (Communication Strategies): verbal speech Hearing Hearing: no gross deficits noted Extremity Assessments: RUE Assessment RUE Assessment: Within Functional Limits LUE Assessment LUE Assessment: Within Functional Limits RLE Assessment RLE Assessment: Within Functional Limits LLE Assessment LLE Assessment: Within Functional Limits Sensation Overall Sensation: Intact Skin Integrity Skin Integrity Description: (2 left chest tubes) Edema Edema: none noted Mobility Assessment: Supine to Sit Mobility [place] Level: Supine->Sit: stand-by assist Bed Features/Set-up: Supine->Sit: Head of bed elevated, Use of bed rail Sit to Supine Mobility [place] Level: Sit->Supine: stand-by assist Bed Features/Set-up: Sit->Supine: Head of bed elevated, Use of bed rail Balance: Sitting Balance Static Sitting-Level of Assistance: Supervision Dynamic Sitting-Level of Assistance: Supervision Standing Balance Static Standing-Level of Assistance: Stand-by assist Dynamic Standing-Level of Assistance: Stand-by assist Standing-Balance Support: Straight cane Transfer Assessment: Sit to Stand Transfer [place] Level: Sit->Stand: stand-by assist Assistive Device: Sit->Stand: straight cane Stand to Sit Transfer [place] Level: Stand->Sit: stand-by assist Assistive Device: Stand->Sit: straight cane Gait/Functional Mobility: Gait Assessment [place] Level: Gait: stand-by assist Assistive Device: Gait: straight cane Ambulation Distance (Feet): 15 Gait Deviations Identified: decreased bridgett, decreased gait speed Gait Skilled Rationale: verbal Stairs: Outcome Score(s): CURRENT [facility] Basic Mobility Inpatient Short Form Turning over in bed: 4 - No Assistance Moving from lying on back to sittin - A Little Assistance Moving to and from bed to chair: 3 - A Little Assistance Sitting/standing from chair: 3 - A Little Assistance Walk in hospital room: 3 - A Little Assistance Climbing 3-5 steps with a railin - A Little Assistance CURRENT [facility] Mobility Raw Score: 19 CURRENT AM-PAC Mobility Functional Limitation: 41.77% Impaired in Basic Mobility Interventions: Assessment & Plan: Patient was admitted for past medical history of atrial fibrillation, HTN, HLD, Magallon's esophagus, and osteoarthritis who presents as a direct transfer from [place] for left-sided empyema and seen for therapy evaluation related to impaired functional mobility/assistive device needs/safe discharge plan. Exam findings include impairments in: Transfers, Gait/Locomotion, Aerobic capacity/endurance. These impairments contribute to functional limitations including Decreased ambulation distance/endurance, Increased fall risk, Difficulty with bed mobility, Difficulty with transfers, Decreased functional mobility. Patient will benefit from skilled physical therapy to address these impairments, functional limitations, and participation restrictions and has good rehab potential to achieve therapy goals. Current clinical presentation is Evolving - changing/inconsistent clinical characteristics (Moderate). Patient history factors impacting Plan Of Care include past medical history. Patient will benefit from skilled physical therapy to address these impairments, functional limitations, and participation restrictions and has good rehab potential to achieve therapy goals. Planned Therapy Interventions: balance training, bed mobility training, endurance, functional activity tolerance, gait training, ROM, strengthening, transfer training Patient Instruction/Education this session: Learners: Patient Education provided: Plan of care, Role of this discipline Teaching method: Verbal Education/Instruction Learner response: Applies knowledge Learning preferences: Auditory Learning considerations: No barriers/ready to learn Plan for next session: transfer training; gait training with cane; stair training with cane/railing; strengthening Acute PT Goals Plan of Care by Elena Lyle PT at 10/02/2024 7:46 AM Version 1 of 1 Problem: PT - General Goals Goal: Supine <-> Sit Transfers - Patient will perform supine to/from sit transfers with modified independence and with use of hospital bed features in order to improve functional mobility and safety. Outcome: Ongoing Goal: Sit <-> Stand Transfers - Patient will perform sit to/from stand transfers with modified independence - independence and straight cane/no device in order to improve functional mobility and safety. Outcome: Ongoing Goal: Ambulation - Patient will ambulate 500 feet with modified independence - independence and straight cane/no device to improve ability to safely navigate home and community. Outcome: Ongoing Goal: Stairs - Patient will ascend/descend 12 stairs with modified independence, without an assistive device/straight cane, and single railing(s) to improve ability to safely navigate home and community. Outcome: Ongoing PT treatment consisted of the following to progress towards the above goal(s): PT Evaluation and Treatment Time PT Evaluation (Moderate) Time Entry: 10 Evaluating Therapist: Elena Lyle PT Additional Details: PT Co-Eval/Treatment Information Co-evaluation/co-treatment performed?: No simultaneous skilled care performed Evaluation Complexity Components History: Moderate (1-2 personal factors and/or comorbidities) Body Systems Review: Moderate (Addressing a total of 3 or more elements) Clinical Presentation: Evolving - changing/inconsistent clinical characteristics (Moderate) Clinical Decision Making Complexity: Moderate Time In: 745 Time Out: 0756 Total Visit Time: 10 minutes Total Treatment Time (skilled, billable minutes): 10 minutes PPE used during patient interaction: facemask, gloves Patient location at end of session: bed with head of bed elevated, RN aware, lines intact Alarms on at end of session: none altered, RN aware Needs in reach. Upon discontinuation of Acute Care Physical Therapy Services or patient discharge from the hospital this note represents the current Physical Therapy Discharge Summary. NUTRITION CONSULT Nutrition Recommendations and Plan of Care: 1. Diet advancement as medically able 2. Once taking PO, will send chocolate-flavored [employer] Breakfast Essentials with whole milk (215 kcal, 13 g pro) and ice cream BID with meals for added nutrition 3. Bowel regimen per primary team 4. Monitor for significant weight changes 5. Monitor/encourage PO intake 6. RD will continue to follow Per HPI: Maxx Forde is a 74 y.o. male with a history of atrial fibrillation, hypertension, hyperlipidemia, Magallon's esophagus, osteoarthritis admitted to the hospital for left sided empyema, status post chest tube placement by thoracic surgery 09/30/24. Received a Nutrition Consult for Assessment. Past History Past Medical History[1] Past Surgical History[2] Nutrition History Pt seen at bedside this afternoon. He is awake and alert. Family present during visit. Pt states things have been all over the place today. Initially NPO then allowed PO so ate 1/2 of a peanut butter and jelly sandwich and milk shake but then he was made NPO again. Pt with poor PO intake since Tuesday 09/19. Prior to that he had a good appetite and ate well. No significant weight changes despite reduced PO intake. Reports dry mouth causing difficulty swallowing. No known food allergies or intolerances. Discussed importance of nutrition intake and encouraged PO including use of high calorie / high protein oral nutrition supplements. Pt reports he prefers to make his own but is open to using [employer]entials as part of his homemade nutrition shakes. Would like chocolate. Current Diet Orders Procedures DIET NPO with meds Standing Status: Standing Number of Occurrences: 1 NPO Meds:: with meds Height/Weight Evaluation Ht: 5' 11/180.3 cm Wt: 164#/74.7 kg IBW: 172#/78.18 kg %IBW: 95% BMI: 22.98 kg/(m^2) Weight History: medical record suggests 8 lb wt loss in 2 months (4.6% change). Family / patient report some weight loss but not a significant amount. 10/01/24 74.7 kg (164 lb 10.9 oz) 07/22/24 78.4 kg (172 lb 14.4 oz) 04/29/24 78.6 kg (173 lb 3.2 oz) 01/29/24 78.5 kg (173 lb) Tmax: 37.1 BP: 108/56 Pulse (Heart Rate): 82 Oxygen Therapy: room air Intake/Output: 3409.9/935 Net +2.6L since admission Meds reviewed: tylenol, norvasc, lipitor, zetia, gabapentin, lopressor, PPI, zosyn, sucralfate, vanc Labs Reviewed: WBC/Hgb/Hct/Plts: 16.18/11.1/33.1/412 (09/30 622) Na/K+/Phos/Mg/Ca: 133/3.4/2.7/2.9/8.2 (09/29 1458) Bun/Creat/Cl/CO2/Glucose: 77/0.87/98/23/131 (09/29 1458) PE: Resp: no SOB GI: last BM 09/28 Skin: [place] Score: 20 Extremities: no edema Nutrition Focused Physical Exam: Nutrition Focused Physical Exam Completed?: completed Subcutaneous Fat Loss: Orbital Region (Orbital Fat Pads): mild Cheek Region (Buccal Fat Pads): WDL Upper Arm Region (Triceps): mild Thoracic and Lumbar Region (Ribs, Lower Back, Midaxillary Line): deferred Muscle Wasting: Christianity Region (Temporalis Muscle): WDL Clavicle Bone Region (Pectoralis Major, Trapezius Muscles): mild Shoulder and Acromion Process Region (Deltoid Muscle): mild Dorsal Hand (Interosseous Muscle): mild Scapular Bone Region (Trapezius, Supraspinatus, Infraspinatus Muscles): deferred Anterior Thigh and Patellar Region (Quadriceps Muscles): mild Posterior Calf Region (Gastrocnemius Muscle): mild Estimated Nutrition Needs Wt used: 74.7 kg - CBW EEN (kcal/d): 1031-0098 (25-30kcal/kg CBW) EPN (g pro/d): 90-112 (1.2-1.5g/kg CBW) EFN (ml/d): 2241 (30 ml/kg CBW) Assessment Malnutrition Statement Does the patient meet criteria for malnutrition: Yes Etiology of Malnutrition: Acute Illness / Injury Malnutrition Severity: Moderate Protein-Calorie Malnutrition (POA) as evidenced by clinical characteristics: Energy intake: Less than to 75% energy intake compared to estimated needs for > 7 days Subcutaneous Fat Loss: Mild Muscle Mass Loss: Mild *Based on [employer] and ASPEN Indicators to Diagnose Malnutrition (AAIM) criteria (2012) Cheryl Rush RD, LD, [facility] Pager: [phone] [1] Past Medical History: Diagnosis Date Arthritis Magallon esophagus Essential hypertension Hyperlipidemia Ventral incisional hernia [2] Past Surgical History: Procedure Laterality Date FUNDOPLASTY ESOPHAGOGASTRIC SANTOS LAPAROSCOPIC THORACIC SURGERY PROGRESS NOTE SUBJECTIVE: No acute events overnight. WBC stable. Afebrile, on room air. Pain controlled. OBJECTIVE: Temp Av.2 F (36.8 C) Min: 98 F (36.7 C) Max: 98.3 F (36.8 C)Systolic (24hrs), Av , Min:103 , Max:120 Diastolic (24hrs), Av, Min:56, Max:79 Pulse Av.8 Min: 81 Max: 100 O2 Sat (%): 91 % (10/01 950) O2 Device: room air (10/02 919) I/O last 3 completed shifts: In: 3409.9 [P.O.:1340; I.V.:1368.6; IV Piggyback:701.3] Out: 935 [Urine:875; Other:60] Physical Exam: - General: appears comfortable, no acute distress, laying comfortably in bed - Abdominal: soft, non-distended, appropriately tender on exam - Cardiac: regular rate and rhythm - Respiratory: no respiratory distress, on RA. Chest tube in place with minimal output, serosangeous in nature. - Extremities: Minimal peripheral edema bilaterally Labs: ASSESSMENT & PLAN: Maxx Forde is a 74 y.o. male with PMHx afib, HTN, GERD who p/w loculated empyema. - Reached out to IR to place additional tube, minimal output from thoracic surgery tube. -- may require tPA/dornase later this week -- may require VATS decortication next week pending above - continue broad spectrum abx - continue holding eliquis - we will continue to follow - daily CXRs (ordered for tomorrow AM) Discussed plan of care with attending surgeon, Dr. Suarez. Primary team notified of above. Carter King MD Cardiothoracic Surgery Resident, PGY3 [id number] 10/01/24 1:01 PM -Epic chat is not a reliable method of communication with a surgical service for urgent needs -Please note the person who wrote this note may be off service, post call, or otherwise unavailable Cosigned by Maria Del Rosario Suarez MD at 10/05/2024 7:49 AM EDT Images from the original note were not included. Hospital Medicine Daily Progress Note Patient: Maxx Forde, 1950, Physician: Kirt Rosales MD, Attending Physician, Pager #[phone] Length of stay: 2 days. Summary of hospitalization Maxx Forde is a 74 y.o. male with PMH of atrial fibrillation, hypertension, hyperlipidemia, Magallon's esophagus, osteoarthritis admitted to the hospital for left sided empyema, status post chest tube placement by thoracic surgery 09/30/24. Assessment and Plan Left-sided Empyema - suspect 2/2 parapneumonic effusion. Pleural studies from [facility] consistent with empyema. - Follow-up cultures and cytology from [facility]: gram+ 3+, gram - 1+, prelim alpha hemalytic . Cytology neg for malignant. Consistent with acute inflammation - await pending culture data from outside hospital and here. - started on empiric Vancomycin and Zosyn, Closely follow renal functions and trough while on Vancomycin. - Thoracic surgery placed chest tube on 09/30 : A lot of adhesions. rec IR guided chest tube posteriorly to assist w/ drainage and planned TPA via chest tube ID consulted for antimicrobial recommendations. May require VATS next week pending course. Recent Acute Kidney Injury: - creatinine elevated to 1.9 at OSH. Now back to 0.87. Suspect due to poor PO intake. IVF discontinued, continue to monitor. Hypokalemia - replete and monitor. Hyponatremia - - suspect secondary to hypovolemia. Monitor sodium trend. Paroxysmal Atrial Fibrillation ([id number]), Only happened once when he had esophageal surgery 1.5 y ago. Since then on Eliquis Holding Apixaban in setting of needing multiple procedures. Continue metoprolol 25mg bid. Monitor telemetry Echo awaited. Essential HTN - continue amlodipine Hyperlipidemia - switched to atorvastatin and ezetimibe as his combination ezetimibe/simvastatin is non-formulary Magallon's esophagus - continue PPI and Sucralfate DVT prophylaxis with SCD's for now. Disposition: to be determined Interval History/Subjective Patient is feeling fine at rest, his family at bedside, had a chest tube placed yesterday. Objective Vitals: [range] current Temp: [98 F (36.7 C)-98.3 F (36.8 C)] 98.1 F (36.7 C) Pulse (Heart Rate): [81-100] 82 Resp Rate: [17-19] 18 BP: (103-120)/(56-79) 108/56 O2 Sat (%): [90 %-95 %] 91 % O2 Device: room air (10/01/24 0920) Intake/Output last 3 shifts: I/O last 3 completed shifts: In: 3409.9 [P.O.:1340; I.V.:1368.6; IV Piggyback:701.3] Out: 935 [Urine:875; Other:60] Constitutional: vital signs noted. oriented to person, place, and time. Cardiovascular: normal rate and regular rhythm. Respiratory: no tachypnea, retractions or cyanosis. diminished air entry left hemithorax Neurological: screening mental status exam normal. Data Review I have reviewed the patient's medical history in detail and updated the computerized patient record. Kirt Rosales MD Senior Network Administrator-Clinical, Division of Hospital Medicine [facility] 10/01/2024 12:21 PM Department of Pharmacy Pharmacokinetics Progress Note Patient: Maxx Forde Room/Bed: [facility]4/ Assessment and Plan: Based upon drug level assessment and interpretation (steady state), I have changed the vancomycin dose and/or dosing interval to 1500 mg IV every 12 hours to start at 1800 on 10/01. A pharmacist will continue to follow and order drug levels and adjust dosing as clinically appropriate. I have modified the orders in IS to reflect the above plan. Vancomycin regimen at time of level: Vancomycin 1000 mg IV every 12 hours Last Dose Administered: Dose: Date: Time: 1000mg 09/30 1738 Levels: 9.0 mcg/mL drawn at 0452 on 10/01. Level was a trough. Most Recent Labs: WBC Count Date Value Ref Range Status 09/30/2024 16.18 (H) 3.73 - 10.10 K/uL Final BUN Date Value Ref Range Status 09/29/2024 77 (H) 7 - 25 mg/dL Final Creatinine Date Value Ref Range Status 09/29/2024 0.87 0.70 - 1.30 mg/dL Final I/O last 3 completed shifts: In: 3409.9 [P.O.:1340; I.V.:1368.6; IV Piggyback:701.3] Out: 935 [Urine:875; Other:60] Estimated Creatinine Clearance: 79 mL/min (by C-G formula based on SCr of 0.87 mg/dL). Ongoing Vancomycin Monitoring: The following trough goal is recommended for ongoing therapy based on the suspected/confirmed source of infection and today s calculations: Goal trough range: 15-20 mcg/mL If therapy is to be continued after discharge, please contact pharmacy for appropriate dosing. Please feel free to contact me with any further questions. Name: Micki Paris RPH Phone: [phone] Date/Time: 10/01/2024 8:44 AM Hospital Medicine Progress Note Patient: Maxx Forde, : 1950, Impression / Plan Maxx Forde is a 74 y.o. male with a past medical history of atrial fibrillation, HTN, HLD, Magallon's esophagus, and osteoarthritis who presents as a direct transfer from [place] for left-sided empyema. Left-sided Empyema - suspect 2/2 parapneumonic effusion. Pleural studies from [place] consistent with empyema. - Follow-up cultures and cytology from [place]: gram+ 3+, gram - 1+, prelim alpha hemalytic . Cytology neg for malignant. C/w acute inflammation - pending histo/blasto serum Ag, Histo urinary Ag, legionella Ag-, and strep Ag- - Will continue vancomycin and Zosyn, monitor vancomycin levels. - has IVF overnight, stop today - Thoracic surgery placed chest tube on 09/30 : A lot of adhesions. rec IR guided chest tube posteriorly to assist w/ drainage and planned TPA via chest tube - keep npo after MN in case this can be scheduled tomorrow - sent drainage culture on 09/30 AURELIO - creatinine elevated to 1.9 at OSH. Now back to 0.87. Suspect due to poor PO intake. -stop IVF. Watch out Cr as on vanco Malnutrition -albumin 2.5, recently poor intake for 2 weeks -consult nutriton Hypokalemia - replete Hyponatremia - - suspect hypovolemic. Na 127 at OSH and now up to 133. -had LR at 100 mL/hr , improving Atrial Fibrillation ([id number]), -paroxsymal. Only happened once when he had esophageal surgery 1.5 y ago. Since then on Eliquis -currently back on a fib 2 days ago as he can feel heart beat/mild SOB maybe from empyema - hold Eliquis for procedure/chest tube. As AC interrupted, rhythm control is not option. Will rate control for now. Maybe consider DCCV when close to discharge and is able to have uninterrupted AC -metoprolol 25mg bid. -tele -TTE Essential HTN - continue amlodipine Hyperlipidemia - switched to atorvastatin and ezetimibe as his combination ezetimibe/simvastatin is non-formulary Magallon's esophagus - continue PPI and Sucralfate Quality Self-Check Complexity. Hypokalemia - Continue to monitor and replete. Hyponatremia - Secondary to fluid shifts. Monitor. Hypocalcemia - Continue to monitor and replete. Wound Documentation Any conditions listed below are present on admission unless otherwise specified. . DVT prophylaxis with SCD. Hold AC for possible procedure. Anticipated Disposition: home likely Code status is Full Code Interval History / Subjective Left side chest pain. Has chest tube done by T surgery . Report has a fib once in the past during surgery 1.5 y ago. No more events, taking Eliquis for it. Now feel a fib flares with some SOB/heart beating feeling. Objective Temp: [97.4 F (36.3 C)-98.7 F (37.1 C)] 98 F (36.7 C) Pulse (Heart Rate): [91-103] 91 Resp Rate: [16-18] 18 BP: (102-121)/(57-71) 102/59 O2 Sat (%): [91 %-95 %] 95 % Weight: [74.7 kg (164 lb 9.6 oz)] 74.7 kg (164 lb 9.6 oz) Physical Exam Gen: A, A, NAD ENT: MMM Resp: Left side BS diminished. Cardio: Irregularly irregular, normal S1, S2, No GREARDO GI: S/NT/ND, NABS Psych: Ox3, appropriate affect and cognition Data Review WBC/Hgb/Hct/Plts: 16.18/11.1/33.1/412 (09/30 622) Na/K+/Phos/Mg/Ca: 134/--/--/--/-- (09/30 012) XR CHEST 1 VIEW PORTABLE Final Result IMPRESSION: Slightly decreased size of the left loculated pleural effusion with new chest tube placement. The sidehole of left chest tube overlapping at the seventh rib, I suggest adjustment if possible. I, Serenity Sal MD have discussed the critical finding/s of the position of the left chest tube with Chuck Walk on 09/30/2024 1:37 PM. I personally viewed and interpreted these images and I have reviewed and approved this report. CHEST 1 VIEW PORTABLE Final Result IMPRESSION: new left large loculated pleural effusion. No chest tube identified. I personally viewed and interpreted these images and I have reviewed and approved this report. CARDIOGRAM (Results Pending) Discharge Planning Assessment Is the patient able to participate in the assessment?: Yes Care Management Plan CM in room to speak with patient. Patient sitting up on bed. Alert and oriented to name, place and time. Patient has no services and or DME. Patient is independent with no needs at this time. Initial Discharge Planning Expected Discharge Disposition: Home Transportation Available for Discharge: Private Vehicle, Family or Friend Anticipated DME: none Anticipated Services at Discharge: Outpatient follow up Patient Assessment Completed: Initial Legal Next of Kin Does the patient have a Guardian?: No Spouse: Yes Name and Contact information: Vivian Forde [phone] Adult Child(tawanna), List All Adult Children: Yes Name and Contact information: Elyse Duc [phone] Reviewed and Updated in Demographics? : Yes Advanced Care Planning Has the patient completed Advance Directives?: Completed, Not Available in Medical Record Copy of Advance Directives was requested?: Yes Advance Directives Requested From: Patient Medication Management Does the patient have prescription insurance coverage? : Yes Is the patient on Anticoagulation? : Yes Provider or Clinic that manages Anticoagulation?: [place] [address] - [address] [facility] [address] [facility] [address] Living Environment and Support System Is the patient from a facility or intermediate?: No Living Environment: House Patient Caregiving Responsibilities: Self Patient-identified caregiver/support network: Family Who does the patient identify as a teachable caregiver(s)?: Child(tawanna) - Independent Services Does the patient use a home health or hospice agency?: No Current with dialysis?: No Does the patient use any community programs or services?: No Does patient use DME? : none Does the patient use oxygen?: No Does patient use medical supplies? : none Initial ADLs Prior to Arrival What is the patient's reported baseline physical functioning prior to this acute illness?: independent What is the patient's reported baseline cognitive functioning prior to this acute illness?: independent Is the patient's baseline functioning changed by this acute illness? : No Concerns with patient being able to care for themselves at home? : No Cynthia Jacobson RN BSN AC Associate Data Scientist THORACIC SURGERY PROGRESS NOTE SUBJECTIVE: No acute events overnight. AFVSS RA. Labs stable- slightly drop in hgb 11.1 from 12.1, CTM. OBJECTIVE: Temp Av F (36.7 C) Min: 97.4 F (36.3 C) Max: 98.7 F (37.1 C)Systolic (24hrs), Av , Min:110 , Max:121 Diastolic (24hrs), Av, Min:57, Max:71 Pulse Av Min: 92 Max: 105 O2 Sat (%): 91 % (10/01 535) O2 Device: room air (10/01 535) I/O last 3 completed shifts: In: 1688.4 [P.O.:400; I.V.:991.6; IV Piggyback:296.8] Out: 1525 [Urine:1525] Physical Exam: - General: appears comfortable, no acute distress, laying comfortably in bed - Abdominal: soft, non-distended, appropriately tender on exam - Cardiac: regular rate and rhythm - Respiratory: no respiratory distress, on RA - Extremities: Minimal peripheral edema bilaterally Labs: WBC/Hgb/Hct/Plts: 16.18/11.1/33.1/412 (09/30 622) Na/K+/Phos/Mg/Ca: 134/3.4/2.7/2.9/8.2 (09/29 1458-09/30 122) Bun/Creat/Cl/CO2/Glucose: 77/0.87/98/23/131 (09/29 1458) Ptt/Pt/Inr: 32.8/16.6/1.3 (09/29 1458) ASSESSMENT & PLAN: Maxx Forde is a 74 y.o. male with PMHx afib, HTN, GERD who p/w loculated empyema. - Thoracic surgery to place chest tube today -- may require tPA/dornase today vs later this week -- may require VATS decortication next week pending above - continue broad spectrum abx - continue holding eliquis - we will continue to follow - daily CXRs (ordered for tomorrow AM) Discussed plan of care with attending surgeon, Dr. Suarez. Primary team notified of above. Marcello Jeter MD -Epic chat is not a reliable method of communication with a surgical service for urgent needs -Please note the person who wrote this note may be off service, post call, or otherwise unavailable Cosigned by Maria Del Rosario Suarez MD at 09/30/2024 9:17 AM EDT documented in this encounter [facility] 10-14-2024 Miscellaneous Notes Problem: Adult Inpatient Plan of Care Goal: Plan of Care Review Outcome: Adequate for Discharge Goal: Patient-Specific Goal (Individualized) Outcome: Adequate for Discharge Goal: Absence of Hospital-Acquired Illness or Injury Outcome: Adequate for Discharge Goal: Optimal Comfort and Wellbeing Outcome: Adequate for Discharge Goal: Readiness for Transition of Care Outcome: Adequate for Discharge Patient encouraged to wash hands often and a hand clinical business analyst will be provided during their hospital stay. The goal will be to alleviate or reduce the problems related to the infection. Hand washing will be completed by hospital staff when entering and exiting the patient's room and before and after glove use. Daily CHG hygiene will be offered/provided to patients per hospital policy along with linen changes as needed. Assessing skin for any signs of breakdown, irritation, and infection. L side dressing changed before discharge and additional supplies provided at discharge. After Visit Summary instructions provided and reviewed with the patient (and family if available) at the bedside. Patient verbalized understanding and denied any questions or concerns. Peripheral IV & telemetry discontinued per physician order. Patient denies having any medications secured in the medication room upon admission. Patient will be discharged home with belongings and a copy of discharge instructions accompanied by hospital staff. Patient is aware that a discharge suite option is available if their ride is not available at the time of discharge. RN will continue to assist as needed. Report called to [facility] and all questions answered. Pt provided with new IS and PEP at time of discharge. Also given new scale for weight monitoring at home. Stressed to pt the importance of weighing himself every morning. Sheryl Salgado RN 10/14/2024 Problem: Adult Inpatient Plan of Care Goal: Plan of Care Review Outcome: Progressing Problem: Adult Inpatient Plan of Care Goal: Patient-Specific Goal (Individualized) Outcome: Progressing Problem: Adult Inpatient Plan of Care Goal: Absence of Hospital-Acquired Illness or Injury Outcome: Progressing Problem: Adult Inpatient Plan of Care Goal: Optimal Comfort and Wellbeing Outcome: Progressing Problem: PT - General Goals Goal: Supine <-> Sit Transfers - Patient will perform supine to/from sit transfers with modified independence and with use of hospital bed features in order to improve functional mobility and safety. Outcome: Progressing Goal: Sit <-> Stand Transfers - Patient will perform sit to/from stand transfers with modified independence - independence and straight cane/no device in order to improve functional mobility and safety. Outcome: Progressing Goal: Ambulation - Patient will ambulate 500 feet with modified independence - independence and straight cane/no device to improve ability to safely navigate home and community. Outcome: Progressing Goal: Stairs - Patient will ascend/descend 12 stairs with modified independence, without an assistive device/straight cane, and single railing(s) to improve ability to safely navigate home and community. Outcome: Progressing Problem: Infection Goal: Absence of Infection Signs and Symptoms Outcome: Progressing Patient encouraged to wash hands often and a hand clinical business analyst will be provided during their hospital stay. The goal will be to alleviate or reduce the problems related to the infection. Hand washing will be completed by hospital staff when entering and exiting the patient's room and before and after glove use. Daily CHG hygiene will be offered/provided to patients per hospital policy along with linen changes as needed. Assessing skin for any signs of breakdown, irritation, and infection. Problem: Adult Inpatient Plan of Care Goal: Optimal Comfort and Wellbeing Outcome: Progressing RN reviewed plan of care. Vital signs will be taken every four hours. Routine lab draws occur booster assembler so that healthcare team may evaluate results prior to morning joint rounds. Daily weight will be recorded in the morning using a standing scale that will be brought to room. Fall prevention policy reviewed- patient safety is our top priority. We're here to help you hang tag located on patient's cabinet door as a reminder to call for assistance. It takes us all to stop a fall flyer was provided in welcome folder for patient to review as needed. Call light provided, within reach & patient has been oriented to use. Patient verbalized understanding and denies any questions at this time. RN will continue to assist patient as needed. Images from the original note were not included. ADMISSION/TRANSFER NOTE Patient admitted to [facility] for: Diuresing Patient orientation: A/O x 4 Patient on telemetry: No Orders reviewed/Labs and ECG obtained if applicable Admitting provider, has been notified in regards to the patient's admission to the unit. [facility] welcome packet has been provided and reviewed with patient. Fall prevention policy reviewed- patient safety is our top priority. We're here to help you hang tag has been placed on the patient's cabinet door as a reminder to call for assistance. It takes us all to stop a fall flyer has been provided to patient to review. Call light provided, within reach & oriented to use. Patient has been updated re: plan of care and reviewed goals for our unit that include- Daily Joint rounding with patient, physician & nurse at the bedside during the patient's hospital stay. For the safety and comfort of our patients-Nursing staff reviewed that it is in the best interest of patients to remain in their area of care while in the hospital. By patients staying on the nursing unit/area of care, the hospital staff s ability to promote the safety of the patient, and to proceed with treatment plans without unexpected delays or interruptions is enhanced. A welcome folder has been provided for more information regarding what to expect on [facility]. Patient verbalized understanding. No further questions currently. RN will continue to assist patient as needed. Skin Assessment: Not WNL; dry skin noted on feet (picture taken) and BUE, wound on left axilla (HAMIDA), wound left upper abdomen (site of prior chest tube placement; dry dressing) On admission to [facility] unit at 0030 from [facility] a dual RN initial assessment of skin condition was performed by ARIANE Dai and ARIANE Penn Skin WDL/NOT WDL: Not WDL Tico Score: 20 Problem: Adult Inpatient Plan of Care Goal: Plan of Care Review Outcome: Progressing Goal: Patient-Specific Goal (Individualized) Outcome: Progressing Goal: Absence of Hospital-Acquired Illness or Injury Outcome: Progressing Goal: Optimal Comfort and Wellbeing Outcome: Progressing Goal: Readiness for Transition of Care Outcome: Progressing Problem: Infection Goal: Absence of Infection Signs and Symptoms Outcome: Progressing Problem: Malnutrition Goal: Improved Nutritional Intake Outcome: Progressing Problem: Gas Exchange Impaired Goal: Optimal Gas Exchange Outcome: Progressing Problem: Oral Intake Inadequate Goal: Improved Oral Intake Outcome: Progressing Problem: Adult Inpatient Plan of Care Goal: Plan of Care Review Outcome: Progressing Goal: Patient-Specific Goal (Individualized) Outcome: Progressing Goal: Absence of Hospital-Acquired Illness or Injury Outcome: Progressing Goal: Optimal Comfort and Wellbeing Outcome: Progressing Goal: Readiness for Transition of Care Outcome: Progressing Problem: Infection Goal: Absence of Infection Signs and Symptoms Outcome: Progressing Problem: Malnutrition Goal: Improved Nutritional Intake Outcome: Progressing Problem: Gas Exchange Impaired Goal: Optimal Gas Exchange Outcome: Progressing Problem: Oral Intake Inadequate Goal: Improved Oral Intake Outcome: Progressing All medications have been fully reconciled and nurses are aware. Patient has transitioned off of paper orders. Thoracic Surgery Update: CXR reviewed with Dr. Suarez. No significantly worsening. OK to DC from thoracic surgery standpoint. Follow up, and discharge medication orders placed. Please call back with any further questions or concerns. Carter King MD Cardiothoracic Surgery Resident, PGY3 [id number] 10/09/24 1:43 PM Final L chest tube removed without complication. Incision covered with sterile, dry occlusive dressing and tape. Patient denies any worsening SOB, dyspnea or pain after removal. Post pull CXR pending. Carter King MD Cardiothoracic Surgery Resident, PGY3 [id number] 10/09/24 9:01 AM -Epic chat is not a reliable method of communication with a surgical service for urgent needs -Please note the person who wrote this note may be off service, post call, or otherwise unavailable Problem: Adult Inpatient Plan of Care Goal: Plan of Care Review Outcome: Progressing Goal: Patient-Specific Goal (Individualized) Outcome: Progressing Goal: Absence of Hospital-Acquired Illness or Injury Outcome: Progressing Goal: Optimal Comfort and Wellbeing Outcome: Progressing Goal: Readiness for Transition of Care Outcome: Progressing Vital signs completed per protocol. Monitoring intake and output q8h. Assessing pain q4h and medicate prn. Obtaining daily weights. Labs completed per protocol and will report any abnormal values to physician. Plan of care reviewed and updated with patient and patient demonstrates understanding. Problem: Infection Goal: Absence of Infection Signs and Symptoms Outcome: Progressing Hand washing completed when entering and exiting patient s room and before and after glove use. Blood cultures completed as ordered. Daily hygiene offered to patients and linen changed. Assessing skin for any signs of breakdown, irritation, and infection. Problem: Malnutrition Goal: Improved Nutritional Intake Outcome: Progressing Patient given food choices. Patient encouraged to ask for snacks. Assistance provided before, during, and after meals. Assistance given when selecting meals. Problem: PT - General Goals Goal: Supine <-> Sit Transfers - Patient will perform supine to/from sit transfers with modified independence and with use of hospital bed features in order to improve functional mobility and safety. Outcome: Progressing Goal: Sit <-> Stand Transfers - Patient will perform sit to/from stand transfers with modified independence - independence and straight cane/no device in order to improve functional mobility and safety. Outcome: Progressing Goal: Ambulation - Patient will ambulate 500 feet with modified independence - independence and straight cane/no device to improve ability to safely navigate home and community. Outcome: Progressing Goal: Stairs - Patient will ascend/descend 12 stairs with modified independence, without an assistive device/straight cane, and single railing(s) to improve ability to safely navigate home and community. Outcome: Progressing Problem: Gas Exchange Impaired Goal: Optimal Gas Exchange Outcome: Progressing Problem: Oral Intake Inadequate Goal: Improved Oral Intake Outcome: Progressing Brief ID Update Note Chart reviewed, but patient not seen or examined. ASSESSMENT Maxx Forde is a 74 y.o. male with left empyema s/p thoracentesis and chest tube placement with subsequent VATS on 10/06/2024. 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 Of note, he has a history of Magallon's esophagus with last EGD in June 2024 with post-procedure emesis and possible aspiration, which is likely inciting event to current presentation. In summary, will plan for prolonged course of antibiotic therapy with follow-up CT imaging prior to ID follow-up. Left empyema s/p VATS (10/06/2024) with S intermedius, Schaalia canis, and anaerobes Magallon's esophagus with last EGD (June 2024) complicated by post-procedural emesis/possible aspiration History of hiatal hernia repair Estimated Creatinine Clearance: 113 mL/min (A) (by C-G formula based on SCr of 0.61 mg/dL (L)). RECOMMENDATIONS Follow-up pending VATS operative cultures. Should finalize later tonight or tomorrow morning. Continue ampicillin-sulbactam while admitted. Pending aforementioned pending cultures, anticipate transition to po amoxicillin-clavulanate 875-125mg bid on discharge with ID follow-up and repeat CT chest. Plan to evaluate and update patient/patient family tomorrow once culture has finalized and will schedule ID follow-up with me in late October/early November. Isolation: Standard ID Team 5 will continue to follow. If you have any questions, please reach out to the ID Team 5 . The ID Team pagers are available - Saturday through Saturday from 7:00am to 6:00pm. For emergent or after hour issues, please call the on-call/1st-call ID fellow pager. [facility] - [facility] - Solitario Arguelles MD Clinical Senior Network Administrator Division of Infectious Diseases Problem: Oral Intake Inadequate Goal: Improved Oral Intake Outcome: Progressing Nutrition Recommendations and Plan of Care: 1. Heart healthy diet + 1500mL fluid restriction per team Appreciate PO documentation in chart 2. Continue [place] breakfast Essentials BID to aid in calorie and protein intake during admission. Provide additional ONS and snacks from unit PRN 3. Nutrition to follow and monitor PO intake, GI function, weight changes, labs, and skin integrity L posterior chest tube removed without complication. Incision covered with sterile, dry occlusive dressing and tape. Patient denies any worsening SOB, dyspnea or pain after removal. Post pull CXR pending. Carter King MD Cardiothoracic Surgery Resident, PGY3 [id number] 10/08/24 11:50 AM -Epic chat is not a reliable method of communication with a surgical service for urgent needs -Please note the person who wrote this note may be off service, post call, or otherwise unavailable Problem: PT - General Goals Goal: Supine <-> Sit Transfers - Patient will perform supine to/from sit transfers with modified independence and with use of hospital bed features in order to improve functional mobility and safety. Outcome: Ongoing Goal: Sit <-> Stand Transfers - Patient will perform sit to/from stand transfers with modified independence - independence and straight cane/no device in order to improve functional mobility and safety. Outcome: Progressing Goal: Ambulation - Patient will ambulate 500 feet with modified independence - independence and straight cane/no device to improve ability to safely navigate home and community. Outcome: Progressing Goal: Stairs - Patient will ascend/descend 12 stairs with modified independence, without an assistive device/straight cane, and single railing(s) to improve ability to safely navigate home and community. Outcome: Ongoing Problem: Adult Inpatient Plan of Care Goal: Plan of Care Review Outcome: Progressing Goal: Patient-Specific Goal (Individualized) Outcome: Progressing Goal: Absence of Hospital-Acquired Illness or Injury Outcome: Progressing Goal: Optimal Comfort and Wellbeing Outcome: Progressing Goal: Readiness for Transition of Care Outcome: Progressing Problem: Infection Goal: Absence of Infection Signs and Symptoms Outcome: Progressing Problem: Malnutrition Goal: Improved Nutritional Intake Outcome: Progressing Problem: PT - General Goals Goal: Supine <-> Sit Transfers - Patient will perform supine to/from sit transfers with modified independence and with use of hospital bed features in order to improve functional mobility and safety. Outcome: Ongoing Goal: Sit <-> Stand Transfers - Patient will perform sit to/from stand transfers with modified independence - independence and straight cane/no device in order to improve functional mobility and safety. Outcome: Progressing Goal: Ambulation - Patient will ambulate 500 feet with modified independence - independence and straight cane/no device to improve ability to safely navigate home and community. Outcome: Progressing Goal: Stairs - Patient will ascend/descend 12 stairs with modified independence, without an assistive device/straight cane, and single railing(s) to improve ability to safely navigate home and community. Outcome: Ongoing Problem: Adult Inpatient Plan of Care Goal: Plan of Care Review Outcome: Progressing Goal: Patient-Specific Goal (Individualized) Outcome: Progressing Goal: Absence of Hospital-Acquired Illness or Injury Outcome: Progressing Goal: Optimal Comfort and Wellbeing Outcome: Progressing Goal: Readiness for Transition of Care Outcome: Progressing Problem: Infection Goal: Absence of Infection Signs and Symptoms Outcome: Progressing Problem: Malnutrition Goal: Improved Nutritional Intake Outcome: Progressing Decortication with chest tube placement 10/06. Post op atrial flutter. Thoracic Surgery Post-Operative Check Note: Maxx Forde Date: 10/06/2024 10:52 PM Chief Complaint: Empyema Primary Surgeon: Maria Del Rosario Suarez MD Maxx Forde is a 74 y.o. male was taken to the operating room on 10/06/2024 for flexible bronchoscopy with BAL, L VATS, pulmonary decortication for multiloculated empyema. He is recovering well post-operatively. He had afib/aflutter post op, given total of 10 mg metoprolol, currently aflutter, HR controlled. He is transferred to [facility] PCU bed for closer observation. Primary service aware. Subjective: No acute events since PACU. VS stable. Pain controlled. Denies nausea or vomiting. Objective: Vital Signs: Blood pressure 94/57, pulse 79, temperature 97.6 F (36.4 C), temperature source Oral, resp. rate 12, height 1.803 m (5' 10.98), weight 74.7 kg (164 lb 10.9 oz), SpO2 97%. On 3L NC Left posterior chest tube output (#1 straight): 54 mL, to -20 cm suction, no air leak Left anterior chest tube output (#2 angled): 140 mL, to-20 cm suction, no air leak UOP: 475 mL 24 hour I/O: Intake/Output Summary (Last 24 hours) at 10/06/2024 2252 Last data filed at 10/06/2024 2200 Gross per 24 hour Intake 1924.03 ml Output 1449 ml Net 475.03 ml Physical Exam: Alert and oriented x 3, in no acute distress. Breathing non-labored, conversational without dyspnea. Chest tubes x2 to -20 cm suction with no air leaks (previously reported to have +6 air leaks post op). Serosanguineous output. Surgical incisions well approximated, without erythema, edema, or exudate. Dressings clean, dry, and intact. All connections and tubings secured. Abdomen soft, non-tender, non-distended. No pretibial or pedal edema noted. No cyanosis. Radiology Studies: IMAGING CXR 10/06/2024 IMPRESSION: 1. Interval placement of 2 left-sided chest tubes. 2. Small circumferentially loculated left-sided hydropneumothorax. SSMENT: Maxx Forde is a 74 y.o. male with history of afib, HTN, GERD who p/w loculated empyema. S/p bedside chest tube 09/30 into lateral pocket and IR pigtail placement 10/01 into posterior pocket. He is now POD#0 for flexible bronchoscopy with BAL, L VATS, pulmonary decortication for multiloculated empyema. PLAN: - Left posterior (#1 straight) and left anterior (#2 angled) chest tubes to remain at - 20 cm suction - Notify Thoracic Surgery team if chest tube output is greater than 100mL/hour, urinary output less than 30 mL/hour or 240 mL/8 hours - Aggressive pulmonary toilet: OOB to chair after 4 hours after surgery, and 4x daily unless remains intubated. Ambulate TID and as tolerated, ambulate in elliott at least 3 times daily starting on POD#1. Incentive spirometry, Q1HWA. Patient to do 10 reps each hour while awake. positive expiratory pressurerx Q6H while awake Scheduled duonebs - Pain: sched Tylenol, sched gabapentin, schedule robaxin, lidocaine patch, PRN oxycodone, Dilaudid SOCIAL SERVICES COUNSELOR - nausea control as needed - Clear liquid diet for now, advance as tolerated - bowel regimen per primary service - Daily weights Q24H - post procedure and daily AM CXRs - follow-up OR cultures - MMPC - CONSUELO per primary team - will continue to monitor CENTRAL LINES: Central Line Indications: No line currently in place If patient has multiple lines, please choose the answers of the next two questions to correlate with the lines listed above in descending order Can line/s be removed today? Select all that apply No line in place at this time Dressing/s Clean/Dry/Intact?: Select all that apply No line currently in place Quality Self-Check Complexity. Hyponatremia - Secondary to fluid shifts. Monitor. Hypocalcemia - Continue to monitor and replete. Malnutrition - Moderate Protein-Calorie Malnutrition (POA) (10/01/2024 2:30 PM) secondary to Acute Illness / Injury (10/01/2024 2:30 PM) - Reviewed and agree with registered physical therapist's recommendations. Wound Documentation Wound Irritant Contact Dermatitis Perspiration 10/01/24 1755 Buttocks (Active) Date First Assessed/Time First Assessed: 10/01/24 175 Primary Wound Type: Irritant Contact Dermatitis Secondary Wound Type - Irritant Contact Dermatitis: Perspiration Present on Original Admission: No Location: Buttocks Wound Other (Comment) 10/02/241999 Lateral;Left Axilla (Active) Date First Assessed/Time First Assessed: 10/02/241999 Primary Wound Type: Other (Comment) Wound Description: previous chest tube site Wound Location Orientation: Lateral;Left Location: Axilla Wound Surgical 10/06/241900 Left;Upper Flank (Active) Date First Assessed/Time First Assessed: 10/06/241900 Primary Wound Type: Surgical Present on Original Admission: No Device Related: no Incision Type: laparoscopic puncture Incision Closure/Dressing: Katey;Island Dressing Wound Location Orie... Wound Surgical 10/06/242003 Left;Upper Abdomen (Active) Date First Assessed/Time First Assessed: 10/06/242003 Primary Wound Type: Surgical Present on Original Admission: No Device Related: no Incision Type: laparoscopic puncture Incision Closure/Dressing: Katey;Island Dressing Wound Location Orie... Any conditions listed below are present on admission unless otherwise specified. . Fall Risk: Assessed for patient fall risk and discussed safety measures during rounding. The patient was seen, images reviewed, and plan of care discussed with Dr. Tran and Dr. Luong for ALIZA Abarca Department of Thoracic Surgery Nocturnal LASHONDA Pager #[phone] The provider may be reached from 530p - 530a at pager listed on [facility]. After these hours please page day LASHONDA. Maxx Mancinien ([id number]) PRE OPERATIVE DIAGNOSIS Empyema lung [J86.9] POST OPERATIVE DIAGNOSIS Empyema lung [J86.9] PROCEDURE PERFORMED Procedure(s) (LRB): PULMONARY DECORTICATION THORACOSCOPIC (Left) PRIMARY CLOSURE Yes INTRAOPERATIVE FINDINGS Multiloculated empyema, erupted lung abscess, thick parietal and visceral rind but very densely adherent to the lung, several parenchymal injuries created while trying to decorticate SURGEON Surgeons and Role: * Maria Del Rosario Suarez MD - Primary ANESTHESIOLOGIST Anesthesiologist: Lb Barrett MD STEM ASSEMBLER: Sheree Pawan, FOREIGN EXCHANGE TRADER-STEM ASSEMBLER; Thor Mirza, FOREIGN EXCHANGE TRADER-STEM ASSEMBLER; Eric Blair II, FOREIGN EXCHANGE TRADER-STEM ASSEMBLER SURGICAL STAFF English Teacher: Vickie Dunn RN Relief English Teacher: Tami Escamilla RN Relief Scrub: Speedy Medrano Scrub Person: Easton Perez Resident Assisting: Yessenia Luong MD Fellow: Chuck Penny MD; Carter King MD COMPLICATIONS None ESTIMATED BLOOD LOSS 50 ml SPECIMENS Microbiology specimen sent ID Type Source Tests Collected by Time Destination A : Left Lung BAL Respiratory BRONCHOALVEOLAR LAVAGE FUNGUS CULTURE, ACID FAST CULTURE, LOWER RESPIRATORY CULTURE, BACTERIAL Maria Del Rosario Suarez MD 10/06/20241844 B : Plueral Abscess for culture Other SURGICAL WOUND FUNGUS CULTURE, ACID FAST CULTURE, BACTERIAL CULTURE AND DIRECT SMEAR, LESION, TISSUE, DEVICE Maria Del Rosario Suarez MD 10/06/2024 193 Maria Del Rosario Suarez MD October 06, 2024 8:44 PM Thoracic Surgery Operative Report Date: 10/06/24 Preoperative diagnosis: Empyema. Postoperative diagnosis: Empyema. Procedure performed: 1. Flexible Bronchoscopy with bronchoalveolar lavage 2. Left video-assisted thoracoscopy (VATS), washout, pulmonary decortication 3. Intercostal nerve blocks (T5-9) Intraoperative findings: Multiloculated empyema, erupted lung abscess, thick parietal and visceral rind but very densely adherent to the lung, several parenchymal injuries created while trying to decorticate Surgeon: Maria Del Rosario Suarez M.D Reinforced Ironworker: Carter Pritchard MD, Yessenia Luong MD Anesthesia type: General Anesthesia Estimated blood loss: 100 cc Specimen: ID Type Source Tests Collected by Time Destination A : Left Lung BAL Respiratory BRONCHOALVEOLAR LAVAGE FUNGUS CULTURE, ACID FAST CULTURE, LOWER RESPIRATORY CULTURE, BACTERIAL Maria Del Rosario Suarez MD 10/06/20241844 B : Plueral Abscess for culture Other SURGICAL WOUND FUNGUS CULTURE, ACID FAST CULTURE, BACTERIAL CULTURE AND DIRECT SMEAR, LESION, TISSUE, DEVICE Maria Del Rosario Suarez MD 10/06/20241935 Complications: None. Drains: 28 Mongolian chest tubes x 2: anterior angled, posterior apical Disposition: The patient was taken to recovery room in stable condition. The patient tolerated the procedure well. Indication for the procedure: The patient is a 74 y.o. male who presented with chest pain and was found to have a multiloculated left empyema. A chest tube was placed, which failed to drain all the fluid collections. The decision was therefore made to proceed to the operating room today for VATS decortication. Risks and benefits were discussed with the patient, who agreed to proceed. Description of the operation: The patient was brought to the operating theater at the [facility]. Intravenous lines were placed by the anesthesia team. The patient had been on scheduled broad spectrum antibiotics. In addition compression boots were placed on lower extremities for DVT prophylaxis. The patient was then intubated with a single lumen endotracheal tube by the anesthesia team. A Menezes catheter and arterial line was placed. Bronchoscopy was performed. The flexible bronchoscope was advanced through the endotracheal tube advanced to the ulises under direct vision. The ulises appeared to be sharp. The airways appeared normal and there were minimal secretions. A left sided bronchoalveolar lavage was performed. The bronchoscope was removed. The single lumen endotracheal tube was switched to a double lumen tube by anesthesia team. The patient was then positioned in the right lateral decubitus position with the left chest facing upward. The previous chest tube was removed. The left chest was prepped with chlorhexidine. Sterile drapes were then placed on the patient. A timeout was performed confirming the correct, patient, procedure, and equipment. The chest was entered in the anterior axillary line in the 4th intercostal space and a 3 cm incision was made. The chest was completely stuck and it took at least 20 minutes to make any space at all for a port. The parietal pleura was very thick. The lung was eventually seen and it looked overall healthy anteriorly. After a long while, we were finally able to place an Pradip wound protector through the incision. The lung was densely adherent to the chest wall. Eventually we were able to find the diaphragm and worked our way up posteriorly. We encountered an abscess cavity that was opened and revealed purulent fluid. This was sent for culture. The lung was freed up from the chest wall circumferentially. The areas that were most stuck was posteriorly, inferior and apically. The anterior lung overall looked ok. A second port was placed through the incision where the pigtail had been. Finally, we were able to place an anterior incision and using all these, we could visualize the entire chest. The chest was washed with 4 literal of warm saline. We then performed intercostal nerve blocks by injecting 0.25% Marcaine with epinephrine in the T5-9 interspaces under direct thoracoscopic guidance. I was not able to completely decorticate the lung parenchyma as it was causing too many parenchymal injuries and I did not feel that in this case the risk of thoracotomy for him would outweigh the benefits that he would get from it. Two 28 Mongolian chest tubes were placed and directed anterior angled, apically posterior. The existing camera port was used for one of the tubes and separate incision was made for the posterior one. The lung was ventilated and inflated slowly under direct vision. Chest tubes were secured with two 0-Ethibond sutures each. The fascia of the incisions was approximated with 0-0 vicryl. The dermal layer was reapproximated a running 2-0 Vicryl suture. The skin was reapproximated with katey. The sponge and instrument counts were correct x2. I was present for the entire procedure and participated in the entire procedure. There no intraoperative surgical complications. The patient was extubated in the operating theater and transported to the recovery room in stable condition. Maria Del Rosario Suarez MD Pt denies history of chemo and radiation. Pt denies metal or foreign objects in body. Denies history of seizures/stroke. Problem: Infection Goal: Absence of Infection Signs and Symptoms Outcome: Progressing Problem: Infection Goal: Absence of Infection Signs and Symptoms Outcome: Progressing Intervention: Prevent or Manage Infection Flowsheets Taken 10/05/2024 1431 Infection Management: aseptic technique maintained Taken 10/04/2024 1609 Fever Reduction/Comfort Measures: fluid intake increased lightweight bedding lightweight clothing Problem: Malnutrition Goal: Improved Nutritional Intake Outcome: Progressing Intervention: Promote and Optimize Oral Intake Flowsheets (Taken 10/05/2024 1431) Oral Nutrition Promotion: calorie-dense foods provided calorie-dense liquids provided physical activity promoted rest periods promoted Nutrition Interventions: diet adjusted food preferences provided meals from home/family encouraged supplemental drinks provided Problem: Infection Goal: Absence of Infection Signs and Symptoms Outcome: Progressing Intervention: Prevent or Manage Infection Flowsheets (Taken 10/04/2024 1609) Fever Reduction/Comfort Measures: fluid intake increased lightweight bedding lightweight clothing Infection Management: aseptic technique maintained At 10:10 am, patient's chest tube was unclamped and open for drainage. Confirmed chest tube is draining after being unclamped. RN at bedside. Problem: Adult Inpatient Plan of Care Goal: Plan of Care Review Outcome: Progressing Goal: Patient-Specific Goal (Individualized) Outcome: Progressing Goal: Absence of Hospital-Acquired Illness or Injury Outcome: Progressing Goal: Optimal Comfort and Wellbeing Outcome: Progressing Goal: Readiness for Transition of Care Outcome: Progressing Problem: Infection Goal: Absence of Infection Signs and Symptoms Outcome: Progressing Chest tube unclamped per Dr. Hinton. Chest tube confirmed to suction. Left anterior chest tube noted to not be in interpleural space on CT from IR. Thus it was removed. Patient tolerated procedure without complication. Incision covered with sterile, dry occlusive dressing and tape. Patient denies any worsening SOB, dyspnea or pain after removal. Post pull CXR pending. Occlusive dressing to be kept in place for 48h. Marcello Jeter MD Vascular Surgery PGY-1 Pager: [phone] -Epic chat is not a reliable method of communication with a surgical service for urgent needs -Please note the person who wrote this note may be off service, post call, or otherwise unavailable Thoracic Surgery Plan of Care Tpa/dornase instilled into posterior chest tube (pigtail) at 1200. The chest tubes are both clamped. Patient was instructed to change positions every 15 min and encouraged to walk if able during the next 4 hours to allow the medication to permeate through the chest cavity. At 1600, the nurse will unclamp the chest tubes and connect to - 20 cm H2O suction to allow it to drain. If at any time, he develops shortness of breath, new severe pain, tachycardic, hypotensive, or otherwise has significant changes in his vital signs, please let us know right away and unclamp chest tubes. Marcello Jeter MD Pager [phone] Images from the original note were not included. WOC/ET Nursing Consult/Evaluation Note Evaluated Maxx Forde for wounds located on sacrococcygeal Description of wound: Gluteal cleft and sacrococcygeal, POA: Centralized area of red, pink, and moist blanchable skin. No drainage or odor. Periwound skin macerated, red blanchable skin, and with non-blanchable hyperpigmented skin of unclear etiology. Patients reports this started at home and they have been apply A&D ointment. Etiology appears consistent with moisture and friction injury at this time. Recommend zinc based barrier cream. Bilateral heels assessed as blanchable and intact at this time. Recommendation: Sacrococcygeal and gluteal cleft: Please apply Z-Guard (orange top) twice daily and as needed in a thin layer. Cleanse with soft bath wipes or no rinse foaming soap (NO CHG WIPES). When cleansing, remove top layer of ointment only, then reapply. Do not scrub ointment off skin, it is designed to stick to raw areas and protect. Offload bilateral heels with Coco pillows or TruVue offloading boots at all times while in bed. Bed Surface: Standard mattress Discharge Recommendations: Patient may continue care as described above at discharge. See image(s) below: Tico Skin Assessment: Tico Risk Assessment Sensory Perception: 4-->no impairment Moisture: 4-->rarely moist Activity: 3-->walks occasionally Mobility: 3-->slightly limited Nutrition: 3-->adequate Friction and Shear: 3-->no apparent problem Tico Score: 20 Tico Score: Tico Score: 20 Body mass index is 22.98 kg/m . Total time spent in assessment and treatment of patient: 20 minutes LABS: Albumin Date Value Ref Range Status 09/29/2024 2.5 (L) 3.5 - 5.0 g/dL Final No results found for: PREALBUMIN Wound Documentation: 10/02/24 1025 Wound Irritant Contact Dermatitis Perspiration 10/01/241754 Buttocks Date First Assessed/Time First Assessed: 10/01/241754 Primary Wound Type: Irritant Contact Dermatitis Secondary Wound Type - Irritant Contact Dermatitis: Perspiration Present on Original Admission: No Location: Buttocks Wound Image Assessment [place];Red;Blanchable;Moist [place]-Wound Assessment Macerated;Red;Hyperpigmented;[place] nchable Drainage Amount None Treatment Applied soap and water, irrigated/cleansed with;barrier applied $$ Dressing Applied open to air Periwound Care Applied soap and water, cleansed with;barrier ointment Plan Problem moisture associated skin damage Current Plan barrier cream WOCT Visit Frequency PRN Last Date Seen 10/02/24 Past Medical History[1] Past Surgical History[2] RN notified of assessment and plan. Please page #[phone] or reconsult with any further needs. Yamila Solis RN [1] Past Medical History: Diagnosis Date Arthritis Magallon esophagus Essential hypertension Hyperlipidemia Ventral incisional hernia [2] Past Surgical History: Procedure Laterality Date FUNDOPLASTY ESOPHAGOGASTRIC SANTOS LAPAROSCOPIC Problem: PT - General Goals Goal: Supine <-> Sit Transfers - Patient will perform supine to/from sit transfers with modified independence and with use of hospital bed features in order to improve functional mobility and safety. Outcome: Ongoing Goal: Sit <-> Stand Transfers - Patient will perform sit to/from stand transfers with modified independence - independence and straight cane/no device in order to improve functional mobility and safety. Outcome: Ongoing Goal: Ambulation - Patient will ambulate 500 feet with modified independence - independence and straight cane/no device to improve ability to safely navigate home and community. Outcome: Ongoing Goal: Stairs - Patient will ascend/descend 12 stairs with modified independence, without an assistive device/straight cane, and single railing(s) to improve ability to safely navigate home and community. Outcome: Ongoing On admission to [address] [place] [address] OR a dual RN initial assessment of skin condition was performed by Anastacia Givens RN and ARIANE Lorenzo. Skin Assessment: Skin not within defined limits. - Wound(s) identified: Yes Blanchable redness on buttocks Tico Score: 20 LDA Added:Yes Anastacia Givens RN Interventional Radiology procedure completed of image guided right sided chest tube placement with IR Attending Brown with and local numbing agent. All connections secured, no air leak present, placement confirmed with imaging. Chest tube maintenance per primary team. Pt to travel back to [facility] for post procedure recovery. Problem: Malnutrition Goal: Improved Nutritional Intake Outcome: Progressing NUTRITION CONSULT Nutrition Recommendations and Plan of Care: 1. Diet advancement as medically able 2. Once taking PO, will send chocolate-flavored [employer] Breakfast Essentials with whole milk (215 kcal, 13 g pro) and ice cream BID with meals for added nutrition 3. Bowel regimen per primary team 4. Monitor for significant weight changes 5. Monitor/encourage PO intake 6. RD will continue to follow Per HPI: Maxx Forde is a 74 y.o. male with a history of atrial fibrillation, hypertension, hyperlipidemia, Magallon's esophagus, osteoarthritis admitted to the hospital for left sided empyema, status post chest tube placement by thoracic surgery 09/30/24. Received a Nutrition Consult for Assessment. Past History [Past Medical History] [Past Medical History] Diagnosis Date Arthritis Magallon esophagus Essential hypertension Hyperlipidemia Ventral incisional hernia [Past Surgical History] [Past Surgical History] Procedure Laterality Date FUNDOPLASTY ESOPHAGOGASTRIC SANTOS LAPAROSCOPIC Nutrition History Pt seen at bedside this afternoon. He is awake and alert. Family present during visit. Pt states things have been all over the place today. Initially NPO then allowed PO so ate 1/2 of a peanut butter and jelly sandwich and milk shake but then he was made NPO again. Pt with poor PO intake since Tuesday 09/19. Prior to that he had a good appetite and ate well. No significant weight changes despite reduced PO intake. Reports dry mouth causing difficulty swallowing. No known food allergies or intolerances. Discussed importance of nutrition intake and encouraged PO including use of high calorie / high protein oral nutrition supplements. Pt reports he prefers to make his own but is open to using [employer] Breakfast Essentials as part of his homemade nutrition shakes. Would like chocolate. Current Diet Orders Procedures DIET NPO with meds Standing Status: Standing Number of Occurrences: 1 NPO Meds:: with meds Height/Weight Evaluation Ht: 5' 11/180.3 cm Wt: 164#/74.7 kg IBW: 172#/78.18 kg %IBW: 95% BMI: 22.98 kg/(m^2) Weight History: medical record suggests 8 lb wt loss in 2 months (4.6% change). Family / patient report some weight loss but not a significant amount. 10/01/24 74.7 kg (164 lb 10.9 oz) 07/22/24 78.4 kg (172 lb 14.4 oz) 04/29/24 78.6 kg (173 lb 3.2 oz) 01/29/24 78.5 kg (173 lb) Tmax: 37.1 BP: 108/56 Pulse (Heart Rate): 82 Oxygen Therapy: room air Intake/Output: 3409.9/935 Net +2.6L since admission Meds reviewed: tylenol, norvasc, lipitor, zetia, gabapentin, lopressor, PPI, zosyn, sucralfate, vanc Labs Reviewed: WBC/Hgb/Hct/Plts: 16.18/11.1/33.1/412 (09/30 622) Na/K+/Phos/Mg/Ca: 133/3.4/2.7/2.9/8.2 (09/29 1458) Bun/Creat/Cl/CO2/Glucose: 77/0.87/98/23/131 (09/29 1458) PE: Resp: no SOB GI: last BM 09/28 Skin: Tico Score: 20 Extremities: no edema Nutrition Focused Physical Exam: Nutrition Focused Physical Exam Completed?: completed Subcutaneous Fat Loss: Orbital Region (Orbital Fat Pads): mild Cheek Region (Buccal Fat Pads): WDL Upper Arm Region (Triceps): mild Thoracic and Lumbar Region (Ribs, Lower Back, Midaxillary Line): deferred Muscle Wasting: Christianity Region (Temporalis Muscle): WDL Clavicle Bone Region (Pectoralis Major, Trapezius Muscles): mild Shoulder and Acromion Process Region (Deltoid Muscle): mild Dorsal Hand (Interosseous Muscle): mild Scapular Bone Region (Trapezius, Supraspinatus, Infraspinatus Muscles): deferred Anterior Thigh and Patellar Region (Quadriceps Muscles): mild Posterior Calf Region (Gastrocnemius Muscle): mild Estimated Nutrition Needs Wt used: 74.7 kg - CBW EEN (kcal/d): 3198-7320 (25-30kcal/kg CBW) EPN (g pro/d): 90-112 (1.2-1.5g/kg CBW) EFN (ml/d): 2241 (30 ml/kg CBW) Assessment Malnutrition Statement Does the patient meet criteria for malnutrition: Yes Etiology of Malnutrition: Acute Illness / Injury Malnutrition Severity: Moderate Protein-Calorie Malnutrition (POA) as evidenced by clinical characteristics: Energy intake: Less than to 75% energy intake compared to estimated needs for > 7 days Subcutaneous Fat Loss: Mild Muscle Mass Loss: Mild *Based on The Academy and ASPEN Indicators to Diagnose Malnutrition (AAIM) criteria (2012) Cheryl Rush RD, LD, CNSCPager: #[phone] Interventional Radiology Procedural Planning Note Requested procedure: Left Chest tube placement Date of H&P reviewed: 10/01/24 Specified Laterality: left side Sedation: local Thank you for your referral to Interventional Radiology. Your request for chest tube placement for your patient has been reviewed and approved for scheduling. Your patient is an ADD ON to our schedule on 10/01/24 Time to be determined. Please note that emergent cases will take priority over any added on cases. Special Considerations: *please contact us if patient's status changes or procedure is no longer needed. *please make your patient npo @ midnight prior to scheduled procedure, this includes tube feeding to be stopped and no pills crushed in food. Your patient will need to be able to tolerate lying flat for approximately one hour. A working PIV is required to sedate your patient. For questions or concerns please call us directly at [phone] for questions [phone]. Problem: Adult Inpatient Plan of Care Goal: Plan of Care Review Outcome: Progressing Goal: Patient-Specific Goal (Individualized) Outcome: Progressing Goal: Absence of Hospital-Acquired Illness or Injury Outcome: Progressing Goal: Optimal Comfort and Wellbeing Outcome: Progressing Goal: Readiness for Transition of Care Outcome: Progressing Problem: Infection Goal: Absence of Infection Signs and Symptoms Outcome: Progressing A dual assessment of skin condition was performed by this aligner typewriter and ARIANE Boudreaux. Skin Assessment: Skin within defined limits:Yes Tico Score: 21 LDA Added:No Elma Odom RN On admission to [facility], from outside facility a dual RN initial assessment of skin condition was performed by Fredrick Everett RN and ARIANE Menon. Skin Assessment: Skin within defined limits:Yes LDA Added:No Fredrick Everett RN' EKG taken. Appears to be in a-fib. MD notified. documented in this encounter [facility] 10-14-2024 Hospital course Narrative Images from the original note were not included. Hospital Medicine Discharge Summary Patient: Maxx Forde, : 1950, Admission Details Admit Date 09/29/2024 Discharge Date 10/14/2024 Inpatient Days 15 Primary Diagnoses Left Empyema Acute on Chronic HFpEF Parxysmal Afib Apical pneumothorax Normocytic anemia Action Items PCP follow-up WITH CHEM6 and Mag on Saturday--- decide whether to continue diuretics or switch to PRN (he decided to leave the hospital before he was completely dry, so difficult to know where he will level out). Augmentin through 11/09 Consider adding SGLT2i Follow-up Hgb and further anemia workup as an outpatient Summary of Hospitalization Dear Doctors, I recently had the opportunity to care for Maxx Forde during his recent hospital stay at [facility]. As you may know, Maxx Forde is a 74 y.o. man with a history of HTN, HLD, atrial fibrillation, and GERD with yuri's esophagus who was admitted for management of Left-sided empyema. Hospitalization was complicated by volume overload due to HFpEF requiring aggressive IV diuresis. HE WAS NOT DRY AT DISCHARGE, but requested discharge home. He was told to continue torsemide 40mg daily and follow-up with PCP on Saturday for labs and exam to decide whether to continue with diuresis vs switch to PRN. Left-sided Empyema: Thoracic surgery assisted. He received a chest tube placement x 2 followed by VATS. He was treated with unasyn. Left posterior tube removed 10/08, Left lateral tube removed 10/09. ID assisted with management and recommended ongoing antibiotic treatment with augmentin through 11/09 (total course 4 weeks). Acute on chronic Heart Failure with Preserved EF: Echo showed normal EF 60-65%. He was significantly volume overloaded (weight peaked at 179lbs). Received active diuresis with IV lasix 80 BID, and had good response, urinating 3-4L daily, but was unwilling to stay for additional diuresis. He had significant electrolyte repletion needs. Discharged with torsemide 40mg daily (which is obviously much less than what he was getting here, but this was felt to be safest given his significant electrolyte wasting with higher doses of diuretics). Weight at discharge was 156lbs (but not his dry weight as he still had ankle and foot edema). Started spironolactone. Consider outpatient initiation of SGLT2i -Follow up with PCP on Saturday for exam and labs. Decide with he should continue or switch torsemide to PRN. He was advised on weight monitoring. Paroxysmal Atrial Fibrillation ([id number]=2. Echo showed normal EF 60-65%. RVSP 29 mm Hg - resumed eliquis. Started metoprolol Apical pneumothorax: Likely related to chest tube. -stable to improved on CXRs after chest tube removal Anemia -Likely due to acute inflammation. No overt bleeding, but does have hx of magallon's esophagus, so could have occult bleeding. Hgb has been stable over last several days. Recommend outpatient Hgb monitoring within 1 week after discharge. Hypertension: Discontinued amlodipine due to soft BP Magallno's Esophagus: Continue PPI and Sucralfate BMI: 22.6 Malnutrition Severity: Moderate Protein-Calorie Malnutrition (POA) Etiology of Malnutrition: Acute Illness / Injury Upon discharge the patient's code was Full Code Please see the remainder of this document for relevant data from this admission as well as the patient's discharge instructions and follow-up appointments. An electronic copy of the patient's records can be obtained via [facility] at [email or web address] It has been my pleasure participating in this patient's care. Please contact me with any questions or concerns regarding his hospital stay. The total time of discharge was 40 minutes. Sincerely, Osito Salinas MD Division of Hospital Medicine Problem list reviewed at discharge Relevant Data from this Admission Temp: [97.4 F (36.3 C)-98.2 F (36.8 C)] 97.4 F (36.3 C) Pulse (Heart Rate): [67-90] 89 Resp Rate: [18] 18 BP: (103-137)/(67-76) 137/76 O2 Sat (%): [96 %-98 %] 97 % Weight: [71.1 kg (156 lb 12 oz)] 71.1 kg (156 lb 12 oz) Physical Exam Gen: Alert, Awake, NAD Eyes: PERRLA, EOMI, no icterus ENT: MMM, trachea midline Resp: CTA & P, normal respiratory effort Cardio: RRR, normal S1, S2, no M/R/G. 2+ pitting edema 4-5 inches above the ankle GI: S/NT/ND, NABS MS: No joint effusions or erythema Skin: No jaundice or rash Neuro: No tremor, Strength grossly equal in muscle groups of the bilateral UEs and LEs. Psych: Ox3, appropriate affect and cognition Recent Labs 10/14/24 0214 WBC 6.28 HGB 8.1* PLATELET 415* SODIUM 137 POTASSIUM 3.1* CO2 30 ANIONGAP 11 BUN 15 CREATSERUM 0.71 MAGNESIUM 1.8 Patient Instructions Future Appointments Date Time Provider Department Center 10/19/2024 9:00 AM CTS [facility]ACTICE PROVIDER, [facility] BS2CTS B[facility] 10/19/2024 2:00 PM [facility], [facility] 11/05/2024 10:45 AM [facility], [facility] ONA[facility]D [facility] 11/09/2024 3:30 PM Solitario Arguelles MD [facility] Maria Del Rosario Suarez MD [address] [place] [address] Follow up in 2 week(s) please call and make a follow up appt for 2 weeks for suture/staple removal, For wound re-check, For suture removal [facility] [address], [address] [place] [address] Medication List for when you go home START taking these medications Morning Afternoon Evening Bedtime As Needed acetaminophen 650 MG tab ER Take 1 tablet by mouth every 6 hours as needed for Mild Pain for up to 14 days. Commonly known as: TYLENOL Last time this was given: Ask your nurse or doctor Replaces: TYLENOL 500 MG TABS 1 tablet Amoxicillin-clavulanate 875-125 MG TABS Take 1 tablet by mouth every 12 hours. Commonly known as: AUGMENTIN 1 tablet 1 tablet Gabapentin 300 MG CAPS Take 1 capsule by mouth 3 times daily for 5 days. Commonly known as: NEURONTIN Last time this was given: 300 mg on October 09, 2024 12:07 PM 1 capsule 1 capsule 1 capsule lidocaine 5 % PTCH patch Place 1 patch on skin every 24 hours for 7 days. Max of 12 hours of application then remove. Commonly known as: LIDODERM Last time this was given: Ask your nurse or doctor Place 1 patch on skin every 24 hours for 7 days. Max of 12 hours of application then remove. Methocarbamol 500 MG TABS Take 2 tablets by mouth 4 times daily for 7 days. Commonly known as: ROBAXIN Last time this was given: 500 mg on October 12, 2024 8:47 PM 2 tablets 2 tablets 2 tablets 2 tablets Metoprolol succinate 50 MG tablet XL Take 1 tablet by mouth daily. Commonly known as: TOPROL-XL Last time this was given: Ask your nurse or doctor 1 tablet oxyCODONE 5 MG TABS Take 1 tablet by mouth every 6 hours as needed for up to 3 days. Commonly known as: ROXICODONE For diagnoses: Loculated pleural effusion Last time this was given: 5 mg on October 08, 2024 1:01 AM 1 tablet Spironolactone 25 MG TABS Take 1 tablet by mouth daily. Commonly known as: ALDACTONE Last time this was given: 25 mg on October 14, 2024 8:21 AM Start taking on: October 15, 2024 Wait until Oct 15 1 tablet Torsemide 20 MG TABS Take 2 tablets by mouth daily. Commonly known as: DEMADEX 2 tablets CONTINUE taking these medications Morning Afternoon Evening Bedtime As Needed Albuterol 108 (90 Base) MCG/ACT AERS inhaler Inhale 1 puff every 4 hours as needed for Shortness of Breath. 1 puff ammonium lactate 12 % LOTN lotion Apply 1 Application topically daily. rub in to affected area well Commonly known as: LAC-HYDRIN Last time this was given: 1 Application on October 13, 2024 11:00 AM Apply 1 Application topically daily. rub in to affected area well apixaban 5 MG TABS Take 1 tablet by mouth every 12 hours. Commonly known as: ELIQUIS Last time this was given: 5 mg on October 14, 2024 8:20 AM 1 tablet 1 tablet ezetimibe-simvastatin 10-20 MG TABS Take 1 tablet by mouth daily. Commonly known as: VYTORIN 1 tablet omeprazole [address] capsule Take 1 capsule by mouth 2 times daily. Commonly known as: PRILOSEC 1 capsule 1 capsule Sucralfate 1 g TABS Take 1 tablet by mouth before meals & at bedtime. Commonly known as: CARAFATE Last time this was given: 1 g on October 14, 2024 5:25 AM 1 tablet 1 tablet 1 tablet 1 tablet traMADol 50 MG TABS Take 1 tablet by mouth every 8 hours as needed. Commonly known as: ULTRAM 1 tablet STOP taking these medications amLODIPine 10 MG TABS Commonly known as: NORVASC Ibuprofen 200 MG TABS Commonly known as: MOTRIN TYLENOL 500 MG TABS Generic drug: acetaminophen Replaced by: acetaminophen 650 MG tab ER Medication Instructions: STOP AMLODIPINE START: Metoprolol (for Afib) and Spironolactone (for heart failure) TAKE TORSEMIDE 40mg daily until follow-up with PCP, defer to PCP to decide whether to continue or switch to as needed. Weight Monitoring: Weigh yourself at the same time every day, preferably in the morning. Record these weights and contact your guzzler builder or primary doctor if you have gained more than 3 pounds in 48 hours or 5 pounds in a week. Bring your weight log to your follow-up appointments documented in this encounter [facility] 10-14-2024 History of Presen t illness Narrative Maxx Forde seen during [facility] rounding for Scheduling and Program Enrollment Scheduling: Patient scheduled for Pharmacy Transition of Care visit by this steam turbine assembler. Pt daughter was in the room at the time of scheduling. She stated that pt has a local heart doctor, Dr. Arnaud Morrow at [facility], and they will make an appointment with them within 1-3 weeks after DC. I asked that they also call the [facility] team if they cannot get in within this time frame and we can schedule the pt with a HF SHEAR GRINDER OPERATOR HELPER at [facility]. Daughter and pt were agreeable to this plan. Patient reports they have transportation: yes Form of transportation: family/friend Program Enrollment: Discussed [facility] HF Transitions of Care RN care navigation program with patient. Patient and/or family agreeable and referrals placed. Information added to AVS as appropriate. For CareNav- pt stated it is okay to call him [phone]. Pt has apt the same day as pharm Lottie- reviewed and pt and daughter were agreeable to both appointments documented in this encounter [facility] 10-13-2024 Hospital Discharg e instructions Osito Salinas MD - 10/13/2024 2:13 PM EDT Images from the original note were not included. You qualify for the [facility] Transitions of Care, Heart Failure (HF) Care Navigation Program. This may include a telehealth visit with a pharmacist, nurse navigation phone calls, scheduling assistance as it pertains to your heart failure follow up, and psychosocial support for up to 30 days post-discharge, or until you are seen in your hospital follow up clinic appointment by the provider managing your heart failure. If you were scheduled for a pharmacy transitions telehealth visit this will be your initial call with the care navigation program. If you were not scheduled for a pharmacy visit, one of our nurse navigators will be contacting you in the first week after you are discharged from the hospital for your initial encounter. If you have questions pertaining to your hospital heart failure care plan, or need scheduling assistance for your pharmacy or heart failure follow up appointment, please contact the heart transitions of care team: [phone]. - Opt 1: Scheduling your heart failure hospital follow up or pharmacy transitions visit - Opt 2: Non-urgent clinical questions pertaining to your heart failure hospital care plan - Opt 3: Social Work needs Please note, program hours are [place] - Saturday 8am - 4pm ET. Please allow up to 2 business days for return call. For other heart scheduling needs please contact [phone], OPT 1. For urgent medical needs during evening, weekend or holiday's please call [phone] Ask the drier operator to page the on-call doctor for the service that was responsible for your care while you were in the hospital. For medical emergencies please dial 911 For more information about Heart Failure please visit this link for an online interactive workbook or QR code below: [email or web address] Containment/aha-heart failure/ Discharge instructions from your inpatient doctor, Osito Salinas MD, and team You were admitted to the hospital for empyema (infection of pleural space) and heart failure (HFpEF) exacerbation. While you were here, you received a chest tube, VATs, IV antibiotics, IV diuresis. After discharge, please do the following: Follow up with your PCP on Saturday. You were not quite dry on discharge, but you preferred to be discharged, so I've sent you with some torsemide to help get more fluid off. Take 40mg torsemide daily until follow-up with PCP. You will need labs done on Saturday. I defer to your PCP about whether to continue additional diuresis vs switch to as needed. Start metoprolol and spironolactone. Stop amlodipine. Continue augmentin through 11/09 Weight Monitoring: Weigh yourself at the same time every day, preferably in the morning. Record these weights and contact your guzzler builder or primary doctor if you have gained more than 3 pounds in 48 hours or 5 pounds in a week. Bring your weight log to your follow-up appointments Please review the first page of your after-visit summary for a detailed list of medication changes, follow-up instructions and scheduled appointments. Please note that not all appointments will be set up on discharge per case management policy. Please check your my chart if needed and follow up with your appointments if you do not receive a call. If you have any questions after your discharge, please call our office at [phone] or your floor and one of our nurses will call you back. Division of Hospital Medicine [phone] Osito Salinas MD - 10/14/2024 11:13 AM EDT STOP AMLODIPINE START: Metoprolol (for Afib) and Spironolactone (for heart failure) TAKE TORSEMIDE 40mg daily until follow-up with PCP, defer to PCP to decide whether to continue or switch to as needed. Weight Monitoring: Weigh yourself at the same time every day, preferably in the morning. Record these weights and contact your guzzler builder or primary doctor if you have gained more than 3 pounds in 48 hours or 5 pounds in a week. Bring your weight log to your follow-up appointments Osito Salinas MD - 10/14/2024 11:11 AM EDT Resume prior activity as tolerated. Osito Salinas MD - 10/14/2024 11:11 AM EDT Resume previous diet as tolerated. documented in this encounter [facility] 10-12-2024 Consult note Formatting of th is note might be different from the original. Consults Vascular Access Consult Note Assessment: Patient seen and evaluated for peripheral IV insertion using ultrasound guidance. ID band present, allergies verified and patient/nurse questioned of limb precautions. Skin integrity within normal limits at time of insertion. No evidence of ecchymosis, infiltration, hematoma, or any condition that would prevent safe insertion of a peripheral IV with ultrasound. Insertion Ultrasound guided access: 22 gauge 1.75 length [employer] catheter inserted into left AC/cephalic vein. Peripheral IV placed per aseptic technique under ultrasound guidance. Positive blood return, flushes easily without symptoms, occlusive dressing applied. Patient tolerated procedure well. []Obtained labs. [x]Call light. [x]Bed locked. [x]Bed low. [x]Tray table within reach. 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 Thank you for allowing our team to participate in the care of this patient. Vascular Access Team [phone] Associated Order(s): IP CONSULT TO INFECTIOUS DISEASE INFECTIOUS DISEASE ID Team 5 CONSULT NOTE Referring MD: Kirt Segovia MD Reason for Consult: Left sided empyema, s/p chest tube placement Chief Complaint: Empyema HPI: Maxx Forde is a 74 y.o. male with a PMH of atrial fibrillation on Eliquis, HTN, HLD, Magallon's esophagus, hiatal hernia repair and OA. He presented on 09/29/2024 as a direct transfer from [place] for left-sided empyema. Reports symptoms started 09/19. Denies having had any symptoms up until that point. States that he had returned from a long day of shopping with family when he had sat down in the recliner with a sudden onset of sharp chest pain. Was seen 09/19 at [facility] ED where CT showed a 5cm mass vs loculation. Patient was discharged and referred to pulmonology for evaluation. Reports he saw the pulmonary nurse practitioner 09/22 who had referred him for IR guided thoracentesis. Patient s/p outpatient IR thoracentesis 09/28 w/ concerns for empyema based on cytology. Repeat CT post thora only w/ large pleural effusion no mass. Was started on vancomycin 09/28 and Zosyn 09/29. Transferred to [facility] for thoracic surgery evaluation. Cultures of pleural effusion from OSH w/ 3+ gram positives and 1+ gram negatives. Cytology consistent with acute inflammation Thoracic surgery has evaluated the patient and placed a chest tube 09/30. On evaluation patient continues to note left sided chest pain, but it is much improved from prior. States on onset he would have rated it a 10/10, now a 5/10. Denies fever, chills, SOB, nausea, vomiting, dental pain, dysphagia, cough and sputum production. 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 [place] Animal Contact or Insect Bites: Denies Occupational or Environmental Exposures: Lives in [place], denies exposures Implants/hardware: Denies Drug use: Denies smoking, vaping, tobacco abuse, or illicit drug use Review of Systems - Patient denies the following dental pain, Fever, Chills, Dysphagia, Dyspnea, Wheezing, Dry Cough, Productive Cough, Nausea, and Vomiting, however admits to Chest Pain Past Medical History[1] Past Surgical History[2] Social History[3] Family History Problem Relation Age of Onset Multiple Myeloma Mother Heart Disease - Other Father Heart Disease - Other Brother Diabetes Brother Prescriptions Prior to Admission[4] Inpatient Medications: Acetaminophen 975 mg Oral Q8H 0800/1600/2200 amLODIPine 10 mg Oral Daily ammonium lactate 1 Application Topical Daily Atorvastatin 10 mg Oral Daily Ezetimibe 10 mg Oral Daily Gabapentin 100 mg Oral TID lidocaine 1 patch Transdermal Q24H Metoprolol 25 mg Oral Q12H Pantoprazole 40 mg Oral BID piperacillin-tazobactam 4.5 g Intravenous Q8HNS Sucralfate 1 g Oral Q6H vancomycin 20 mg/kg (Adjusted) Intravenous Q12HNS Allergies[5] OBJECTIVE FINDINGS: Vital Signs (24hrs): Temp: [97.9 F (36.6 C)-98.3 F (36.8 C)] 98.1 F (36.7 C) Pulse (Heart Rate): [81-103] 96 Resp Rate: [16-19] 17 BP: (102-120)/(59-79) 111/64 O2 Sat (%): [90 %-95 %] 90 % Physical Exam: GEN: Awake, resting comfortably, NAD EYES: PERRL, EOMI, no scleral icterus HENT: MMM. No oral lesions. Fair dentition. NECK: Supple CARDIO: Irregularly irregular rhythm PULM/CHEST: Decreased breath sounds on the left. No increased work of breathing ABD: Normal bowel sounds, soft, not tender or distended. No hepatosplenomegaly. MSK: no obvious effusion, swelling, increased warmth, or erythema of major joints. No pedal edema. SKIN: No rashes. Hands and fingers appear normal. NEURO: AOx3. No focal deficits. Lab Results Component Value Date WBC 16.18 (H) 09/30/2024 HGB 11.1 (L) 09/30/2024 HCT 33.1 (L) 09/30/2024 PLATELET 412 (H) 09/30/2024 MCV 86.6 09/30/2024 Lab Results Component Value Date RBCDISTRIBU 13.5 09/30/2024 GRNLOCYT 87.0 09/29/2024 LYMPHOCYT 4.7 09/29/2024 MONOCYTELEC 5.6 09/29/2024 EOSINOPHILS 0.0 09/29/2024 BASOPHILS 0.2 09/29/2024 LYMPHOCYTABS 0.78 (L) 09/29/2024 EOSINOPHLABS <0.04 09/29/2024 PLATELET 412 (H) 09/30/2024 MPV 8.9 09/30/2024 Estimated Creatinine Clearance: 79 mL/min (by C-G formula based on SCr of 0.87 mg/dL). Lab Results Component Value Date ALT 16 09/29/2024 AST 19 09/29/2024 ALKPHOS 204 (H) 09/29/2024 BILITOTAL 0.8 09/29/2024 BILIDIRECT 0.3 (H) 09/29/2024 No results found for: SEDRATE No results found for: CRP Urinalysis Lab Results Component Value Date SPGRVTYUR 1.019 09/29/2024 GLUCOSEURINE Negative 09/29/2024 KETONESURINE Negative 09/29/2024 BLOODURINE Negative 09/29/2024 NITRITESURIN Negative 09/29/2024 LEUKOCESTUR Negative 09/29/2024 WBCURINE 0 - 5 09/29/2024 RBCURINE 3-5 (A) 09/29/2024 BACTERIAURIN ABSENT 09/29/2024 Microbiology and Other Significant ID Labs: (personally reviewed) Strep pneumoniae: Negative Legionella urinary antigen: Negative Acid fast culture 09/30: Pending Anaerobic culture 09/30: Pending Bacterial culture 09/30: Pending Fungus culture 09/30: Pending OSH empyema bacterial culture: 3+ gram positives alpha hemolytic, 1+ gram negatives Imaging: (personally reviewed) XR CHEST 1 VIEW PORTABLE XR CHEST 1 VIEW PORTABLE Final Result IMPRESSION: Slightly decreased size of the left loculated pleural effusion with new chest tube placement. The sidehole of left chest tube overlapping at the seventh rib, I suggest adjustment if possible. I, Serenity Sal MD have discussed the critical finding/s of the position of the left chest tube with Chuck Zohaib on 09/30/2024 1:37 PM. I personally viewed and interpreted these images and I have reviewed and approved this report. CHEST 1 VIEW PORTABLE Final Result IMPRESSION: new left large loculated pleural effusion. No chest tube identified. I personally viewed and interpreted these images and I have reviewed and approved this report. CARDIOGRAM (Results Pending) ASSESSMENT: Maxx Forde is a 74 y.o. male with a PMH of atrial fibrillation on Eliquis, HTN, HLD, Magallon's esophagus, hiatal hernia repair and OA. He presented on 09/29/2024 as a direct transfer from [place] for left-sided empyema. Has been evaluated by thoracic surgery and is now s/p chest tube placement 09/30. ID consulted for antibiotic recommendations. Patient reported symptoms were of sudden onset 09/19 without prodrome. Cell counts at OSH concerning for empyema. Transferred to [facility] for eval by thoracic surgery. Is now s/p chest tube 09/30. Bacterial cultures of empyema at OSH positive for 3+ gram positives w/ alpha hemolysis and 1+ gram negatives. We will follow-up OSH results and adjust antibiotics based on speciation and sensitivities. Would recommend to continue vancomycin and Zosyn at this time. Will follow-up cultures obtained here. Will continue to follow. Pending source control will require up to 4 weeks of antibiotic therapy. Left-sided empyema RECOMMENDATIONS: Continue vancomycin and Zosyn 4.5gm Q8H. Will require up to 4 weeks of antibiotic therapy pending source control. Follow-up OSH culture results Follow-up 09/30 bacterial culture results Estimated Creatinine Clearance: 79 mL/min (by C-G formula based on SCr of 0.87 mg/dL). Precautions: None Patient was staffed with Dr. Alison Joe ID Team 5 will Will continue to follow with you If you have any questions please reach out to the ID Team 5 in [place] Paging Link. The ID Team pagers are available - Saturday through Saturday from 7:00 am to 06:00 pm. For emergent or after hour issues, please call the on-call ID Fellow pager (listed as [facility] ID 1st Call ) Darren Palumbo MD Internal Medicine, PGY-1 Pager #[phone] [1] Past Medical History: Diagnosis Date Arthritis Magallon esophagus Essential hypertension Hyperlipidemia Ventral incisional hernia [2] Past Surgical History: Procedure Laterality Date FUNDOPLASTY ESOPHAGOGASTRIC SANTOS LAPAROSCOPIC [3] Social History Socioeconomic History Marital status: Social Drivers of Health Food Insecurity: No Food Insecurity (09/30/2024) NCSS - Food Insecurity Worried About Running Out of Food in the Last Year: No Ran Out of Food in the Last Year: No Transportation Needs: No Transportation Needs (09/30/2024) NCSS - Transportation Lack of Transportation: No Personal Safety: Not At Risk (09/30/2024) NCSS - Interpersonal Safety Feels Physically and Emotionally Safe: Yes Physically Hurt by Someone: No Humiliated or Emotionally Abused by Someone: No Housing Stability: Not At Risk (09/30/2024) NCSS - Housing/Utilities Has Housing: Yes Worried About Losing Housing: No Unable to Get Utilities: No [4] Medications Prior to Admission Medication Sig Dispense Refill Last Dose/Taking acetaminophen (TYLENOL) 500 MG tablet Take 1 tablet by mouth every 6 hours as needed for Mild Pain. Albuterol 108 (90 Base) MCG/ACT Aero Soln inhaler Inhale 1 puff every 4 hours as needed for Shortness of Breath. amLODIPine 10 MG tablet Take 1 tablet by mouth daily. ammonium lactate 12 % Lotion lotion Apply 1 Application topically daily. rub in to affected area well apixaban 5 MG tablet Take 1 tablet by mouth every 12 hours. ezetimibe-simvastatin 10-20 MG tablet Take 1 tablet by mouth daily. Ibuprofen 200 MG tablet Take 1 tablet by mouth every 8 hours as needed for Moderate Pain. omeprazole [address] capsule Take 1 capsule by mouth 2 times daily. Sucralfate 1 g tablet Take 1 tablet by mouth before meals & at bedtime. traMADol 50 MG tablet Take 1 tablet by mouth every 8 hours as needed. [5] Not on File Cosigned by Alison Joe DO at 10/01/2024 2:06 PM EDT Associated attestation - Alison Joe DO - 10/01/2024 2:06 PM EDT As the attending physician, I personally examined the patient and reviewed the labs and imaging on 10/01/24 . I reviewed the past medical, family, and social history. I have taken a history pertinent to the patient's case. I have formulated an independent assessment and plan and discussed with the resident/fellow. My findings are in agreement as outlined by the resident physician and I have the following annotation to add: 74 yo man here with a L empyema s/p chest tube placement with cultures obtained here not yet processed. The thoracentesis from [facility] has preliminary appearance of a possible strep species with polymicrobial involvement on gram stain. Recommend to continue with his current broad coverage for now while we await further culture maturation. He needs close monitoring of renal function for vancomycin with goal trough 10-20. Thank you for this consultation, ID will continue to follow. Alison Joe DO, MPH Senior Network Administrator-Clinical Division of Infectious Diseases Pager #[phone] Associated Order(s): IP CONSULT TO INTERVENTIONAL RADIOLOGY Interventional Radiology Consult Note Interventional Radiology Clinic [phone] - Interventional Radiology Scheduling [phone] [facility] dietetic aide [phone] - [facility] dietetic aide [phone] Reason for Consult: empyema s/p chest tube,A lot of adhesions per T surgery, rec IR guided chest tube posteriorly to assist w/ drainage HPI/Imaging Findings: Maxx Forde is a 74 y.o. male with a past medical history of afib, HTN, GERD who p/w loculated empyema. Bedside surgical chest tube placed with approximately 500cc out at time of the procedure. Concern for multiple septations, request for additional pigtail drain placement into the more posterior aspect of the collection. Sedation Anticipated: Deferred / to be determined Anticoagulation: None Contrast allergy: None Vitals: Vitals: 09/30/24 1431 BP: Pulse: 91 Resp: 18 Temp: 98 F (36.7 C) SpO2: 95% Laboratory Data: Lab Results Component Value Date/Time HGB 11.1 (L) 09/30/2024 06:23 AM PLATELET 412 (H) 09/30/2024 06:23 AM INR 1.3 (H) 09/29/2024 02:59 PM SODIUM 134 (L) 09/30/2024 01:23 AM POTASSIUM 3.4 (L) 09/29/2024 02:59 PM GFR >90 09/29/2024 02:59 PM Allergies: Allergies[1] Impression: 74 y.o. male with a past medical history of afib, HTN, GERD who p/w loculated empyema. Bedside surgical chest tube placed with approximately 500cc out at time of the procedure. Concern for multiple septations, request for additional pigtail drain placement into the more posterior aspect of the collection. IR service is consulted for left pigtail chest tube. Plan: Plan for image guided left chest tube placement as IR suite availability permits. Patient must be able to lie flat for procedure. Preprocedure Parameters: Blood pressure goal: <= 160/90 mmHg Hemoglobin > 8 g/dL Platelet count > 50,000/ L INR < 1.5 Anticoagulation, if any not listed, will need to be held per guidelines. Consult discussed with Dr. Corona MD from the requesting team on 09/30/2024. Consult reviewed with IR Attending Dr. Horace Sherwood MD who agrees with the above plan. Partha Garsia DO 09/30/2024 2:44 PM Most recent History and Physical exam was reviewed and we agree with their assessment. Important Notes Procedures are performed with either moderate sedation or anesthesia services. Both require the patient to be NPO (which includes tube feeds). Patients will need to lie flat comfortably for the duration of the procedure. Please be aware that patients requiring anesthesia services will require additional coordination which may increase the time from consult to procedure. [1] Not on File Cosigned by Horace Sherwood MD at 10/01/2024 8:51 PM EDT Associated Order(s): IP CONSULT TO SURGERY - THORACIC THORACIC SURGERY CONSULT NOTE Patient: Maxx Forde Date: 09/29/2024 3:19 PM Reason for Consult: loculated empyema Assessment and Plan Maxx Forde is a 74 y.o. male with PMHx afib, HTN, GERD who p/w loculated empyema. - we will place a chest tube 09/30, may require tPA/dornase due to loculations - broad spectrum antibiotics: vanc/zosyn - continue holding eliquis - we will continue to follow Plan was discussed with Dr. Suarez. HPI Patient with PMHx afib (eliquis, last dose 09/26), HTN, GERD, hiatal hernia repair who presented to OSH and was found to have loculated empyema on CT Chest at OSH. He was transferred to [facility] for further management. He was on Vanc/Zosyn at OSH. He has had no prior thoracic surgeries. He endorses current SOB that is mild but worsens with exertion. He feels better than he did last week at this time and thinks the abx helped. He is AFVSS on RA. WBC 16, hgb 12.1. Non smoker, no COPD, asthma, sleep apnea. Patient is not on therapeutic AP, steroids, or chemotherapy. Last PO intake this morning 11am. Review of Systems Pertinent negative(s) and positive(s) per HPI Past Medical/Surgical History He has no past medical history on file. He has no past surgical history on file. Family History His family history is not on file. Social History He has no history on file for tobacco use, alcohol use, and drug use. Medications He has a current medication list which includes the following Facility-Administered Medications: acetaminophen, calcium carbonate antacid, guaifenesin, melatonin, ondansetron 4mg/2ml OR ondansetron, promethazine OR promethazine, senna, sodium chloride 0.9%. Allergies/Immunizations Allergies: Patient has no allergy information on record. Immunizations: Immunization History Administered Date(s) Administered 9588-5000 COVID-19 monovalent vaccine, mRNA, Moderna, 50 mcg/0.25 mL booster 04/13/2020, 05/10/2020, 01/18/2021 Physical exam Blood pressure 110/68, pulse 105, temperature 97.4 F (36.3 C), temperature source Oral, resp. rate 16, SpO2 94%. Constitutional: Lying in bed in no acute distress HEENT: Normocephalic, atraumatic, Neurological: alert, follows commands, moves all extremities to commands, no gross motor or sensory deficits Cardiovascular: HDS. Pulmonary: Respirations easy and regular, no accessory muscle use, room air GI: Abdomen rounded, soft, non-distended, non-tender to palpation - no guarding or peritonitis. Musculoskeletal: No deformities noted Integumentary: Skin warm and dry Psych: Normal affect, asks appropriate questions. Thank you for allowing us to participate in the care of your patient. Should you have any further questions please do not hesitate to contact the relevant surgery consult team via [employer]. Marcello Jeter MD Vascular Surgery PGY-1 Pager: [phone] -Epic chat is not a reliable method of communication with a surgical service for urgent needs -Please note the person who wrote this note may be off service, post call, or otherwise unavailable Cosigned by Maria Del Rosario Suarez MD at 09/30/2024 9:17 AM EDT Associated attestation - Maria Del Rosario Suarez MD - 09/30/2024 9:17 AM EDT THORACIC SURGERY ATTENDING NOTE I independently interviewed and examined this patient. I have reviewed the history, pertinent data and imaging. I agree with the history, exam, assessment and plan detailed in the note. I agree with the medical decision making. Total time spent with patient greater than: 1 Hour In brief, this is a 74 year old male never smoker, with afib on eliquis with 3 weeks of left sided chest pain, with attempted biopsy for presumed mass but now with concern for empyema. He remains on room air and is stable. He has a posterior fluid collection that we will plan to drain and tPA/dornase. He has recently taken eliquis so will wait for that to wash out of his system. I discussed with the family that there is a good likelihood of needing surgery early next week if no resolution with bedside drainage. Maria Del Rosario Suarez MD MPH Senior Network Administrator Division of Thoracic Surgery Department of Surgery [facility] documented in this encounter [facility] 10-06-2024 Nurse Note [id number] Nena HURLEY at bedside. 10 mg Metoprolol given. 2[address] Ber[address] GLASSIE at bedside, level of care updated to PCU. RN to hold off on amiodarone. CXR cleared. documented in this encounter [facility] 10-01-2024 Procedure note Associated Ord er(s): GENERAL PROCEDURE INTERVENTIONAL RADIOLOGY BRIEF PROCEDURE NOTE PROCEDURE PERFORMED BY: Beatriz Brown MD (Attending), Rosales Rodriguez DO (Resident) ATTENDING: Dr. Brown PROCEDURE DATE: 10/01/2024 5:18 PM PRE PROCEDURE DIAGNOSIS: History of empyema with loculated left pleural effusion. POST PROCEDURE DIAGNOSIS: History of empyema with loculated left pleural effusion. PROCEDURE: CT guided left chest tube placement CONSENT: Informed consent was obtained prior to the procedure after discussion of the risks, benefits, and alternatives and expected outcomes were discussed with the patient; consent placed in chart. The possibilities of reaction to medication, pulmonary aspiration, bleeding, infection, the need for additional procedures, failure to diagnosis a condition, and creating a complication requiring transfusion or operation were discussed with the patient. The patient concurred with the proposed plan, giving informed consent. UNIVERSAL PROTOCOL: Preprocedure verification is complete- patient verified and consents confirmed. ANESTHESIA: Local anesthesia ESTIMATED BLOOD LOSS: <2 mL FINDINGS: Loculated air and fluid in the left pleural space. The effusion was accessed with return of purulent fluid, with a sample sent for culture. Completion imaging shows appropriate position of the catheter in the left pleural space. A total of 100 mL purulent fluid was drained during the procedure. The procedure was technically challenging due to limitations in patient positioning. CONDITION: Stable. Patient tolerated procedure well. COMPLICATIONS: None. SPECIMEN: 10 mL purulent fluid sent for culture. IMPRESSION/PLAN: Status post technically challenging CT guided left chest tube placement, with a 12-Mongolian M-drain attached to pleur-evac. Cosigned by Beatriz Brown MD at 10/02/2024 9:28 AM EDT Associated Order(s): *CHEST TUBE INSERTION Post-Procedure Diagnose(s): Loculated pleural effusion *CHEST TUBE INSERTION Procedure Date:: 09/30/2024 Start Time:: 11:45 EDT Performed by: Marcello Jeter MD Authorized by: Maria Del Rosario Suarez MD Staff: Name of Reinforced Ironworker: Chuck Penny MD Attending Supervision present for entire procedure: No Consent Verbal consent obtained Written consent obtained Consent given by: patient Risks and benefits were discussed. Alternatives discussed: alternative treatment, delayed treatment, no treatment and observation Indications Indications: pleural effusion Indications comment: Loculated empyema Loving Protocol The patient states understanding of procedure being performed. The patient's understanding of the procedure matches consent given Procedure consent matches procedure scheduled. Relevant documents present and verified: Yes Test results available and properly labeled: Yes Site marked: Yes Imaging studies available: Yes Required blood products, implants, devices, and special equipment available Patient identity confirmed: verbally with patient, arm band and hospital-assigned identification number Immediately prior to the procedure a timeout was called. Pre Procedure Details Hand hygiene used Landmarks identified Antiseptic used: skin prepped with ChloraPrep Skin prep agent completely dried prior to procedure Maximum sterile barriers were used: cap, mask, sterile gown, sterile gloves, and large sterile sheet Anesthesia Local anesthesia used: yes Local: local infiltration and see MAR for details Local Anesthetic: 1% Lidocaine Anesthetic total: 20 mL Sedation Patient not sedated Sedation Type: local anesthesia and IV morphene. Procedure Details Placement location: Left lateral Scalpel size: 11 Tube size (Mongolian): 28 Dissection instrument: Finger and Glenny clamp Tension pneumothorax: No Tube connected to: Suction Drainage characteristics: Purulent Drainage amount (mL): 500 Placement technique: open technique used Suture material: 2-0 Nylon. Dressinx4 (4x4 covered with tegaderm) Number of attempts: 1 Procedure stop date: 09/30/2024 Procedure stop time: 12:30 EDT Procedure Vital Signs Monitored Post Procedure Successful Placement?: Yes Ultrasound guidance on successful attempt: No Post Procedure Diagnosis: Loculated empyema Assessment/Findings: Loculated empyema Estimated Blood Loss: Other 30 mL Disposition of Specimen: No specimen was removed (no specimen to remove) Patient tolerance: Patient tolerated the procedure well with no immediate complications Additional Documentation Dr. Penny and I were present for the entire procedure. Significant adhesions were encountered and the 28Fr chest tube was unable to be safely advanced past the 4cm emanuel despite numerous attempts to clear adhesions and reinsert and advance the chest tube. Approximately 500 cc of purulent drainage was drained throughout the procedure. Medical direction of (STEM ASSEMBLER/Resident) I performed the procedure myself Cosigned by Maria Del Rosario Suarez MD at 10/05/2024 7:48 AM EDT documented in this encounter [facility] 09-29-2024 History and physical note Hospital Medicine Admission History & Physical Patient: Maxx Forde, : 1950, Date of face to face patient encounter: 09/29/2024 Impression / Plan Maxx Forde is a 74 y.o. male with a past medical history of atrial fibrillation, HTN, HLD, Magallon's esophagus, and osteoarthritis who presents as a direct transfer from [place] for left-sided empyema. Left-sided Empyema - suspect 2/2 parapneumonic effusion. Pleural studies from [place] consistent with empyema. - Follow-up cultures and cytology from [place] - Check histo/blasto serum Ag, Histo urinary Ag, legionella Ag, and strep Ag - Will continue vancomycin and Zosyn, monitor vancomycin levels - Thoracic surgery consulted, plan for chest tube tomorrow - Spot check pulse ox AURELIO - creatinine elevated to 1.9 at OSH. Now back to 0.87. Suspect due to poor PO intake. Will continue IV fluids overnight and encourage PO intake Hypokalemia - replete Hyponatremia - suspect hypovolemic. Na 127 at OSH and now up to 133. Will run LR at 100 mL/hr overnight and repeat level in 6 hours and again in AM. Check urine/serum Os[place] and FeNA Atrial Fibrillation ([id number]), unknown if chronic/persistent/paroxsymal. - Will check EKG to establish rhythm as he sounds like his in a-fib. Not currently on BB. Hold Eliquis. Essential HTN - continue amlodipine Hyperlipidemia - switched to atorvastatin and ezetimibe as his combination ezetimibe/simvastatin is non-formulary Magallon's esophagus - continue PPI and Sucralfate Quality Self-Check Complexity. Hypokalemia - Continue to monitor and replete. Hyponatremia - Secondary to fluid shifts. Monitor. Hypocalcemia - Continue to monitor and replete. Wound Documentation Any conditions listed below are present on admission unless otherwise specified. . DVT prophylaxis with SCDs, hold Eliquis Anticipated Disposition: home Code status is FULL Reynaldo Trimble MD Hospital Medicine Chief Complaint Empyema History of Presenting Illness Maxx Forde is a 74 y.o. male with a past medical history of atrial fibrillation, HTN, HLD, Magallon's esophagus, and osteoarthritis who presents as a direct transfer from [place] for left-sided empyema. He was initially seen in the ED on 09/[address] showed a 5 cm mass vs loculation. He was seen by pulmonology and underwent thoracentesis that was consistent with empyema. Post-thoracentesis, CT was repeated and showed a large pleural effusion and no mass. In the ED, WBC was elevated to 33, Creatinine elevated to 1.9. He received NS 1 L, vancomycin (last infusion 09/29 2127)and Zosyn (last infusion 608) He was transferred to [facility] for surgical opinion. Regarding his symptoms, he had a fever on day of presentation, but no recent weight loss, cough, shortness of breath, dyspnea on exertion, or rashes. No tobacco use history, travel, animal exposure, or sick contacts. 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 Review of Systems Constitutional: +Fever x1. No chills, weight changes Eyes: No vision changes ENT: No ringing, loss of hearing Cardiovascular: No LE edema, leg pain with walking, PND, Orthopnea Respiratory: No cough, SOB Gastrointestinal: No abd pain, constipation, diarrhea Genitourinary: No dysuria, gross hematuria Integumentary: No rash Musculoskeletal: No joint deformity, joint pains Psychiatric: No depressed mood History Past Medical History[1] Past Surgical History[2] Social History he has no history on file for tobacco use, alcohol use, and drug use. 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 Medications / Allergies Prior to Admission Medications Prescriptions Albuterol 108 (90 Base) MCG/ACT Aero Soln inhaler Sig: Inhale 1 puff every 4 hours as needed for Shortness of Breath. Ibuprofen 200 MG tablet Sig: Take 1 tablet by mouth every 8 hours as needed for Moderate Pain. Sucralfate 1 g tablet Sig: Take 1 tablet by mouth before meals & at bedtime. acetaminophen (TYLENOL) 500 MG tablet Sig: Take 1 tablet by mouth every 6 hours as needed for Mild Pain. amLODIPine 10 MG tablet Sig: Take 1 tablet by mouth daily. ammonium lactate 12 % Lotion lotion Sig: Apply 1 Application topically daily. rub in to affected area well apixaban 5 MG tablet Sig: Take 1 tablet by mouth every 12 hours. ezetimibe-simvastatin 10-20 MG tablet Sig: Take 1 tablet by mouth daily. omeprazole [address] capsule Sig: Take 1 capsule by mouth 2 times daily. traMADol 50 MG tablet Sig: Take 1 tablet by mouth every 8 hours as needed. Facility-Administered Medications: None Allergies[3] Objective Findings BP 110/68 (BP Location: Left arm, BP Position: Lying) Pulse 105 Temp 97.4 F (36.3 C) (Oral) Resp 16 SpO2 94% General appearance: alert, cooperative, appears stated age Head: Normocephalic, without obvious abnormality, atraumatic Eyes: PERRLA, no scleral icterus Mouth: MMM Neck: supple, symmetrical, trachea midline, no adenopathy. Lungs: Diminished in LLL Heart: Irregular rhythm, no m/r/g Abdomen: soft, non-tender/non-distended. Bowel sounds normoactive. Extremities: Distal pulses intact. No cyanosis or edema. Skin: Examined areas show normal color, texture, and turgor. No rashes or lesions. Cap refill < 2 seconds. Neurologic: Grossly intact Data Review WBC/Hgb/Hct/Plts: 16.74/12.1/34.8/450 (09/29 1458) Na/K+/Phos/Mg/Ca: 133/3.4/2.7/2.9/8.2 (09/29 1458) Bun/Creat/Cl/CO2/Glucose: 77/0.87/98/23/131 (09/29 1458) Ptt/Pt/Inr: 32.8/16.6/1.3 (09/29 1458) Labs 09/28: WBC 31.6 (91.9% segs) Hgb 12.5 Plts 482 Na 127 K 3.7 Cl 90 CO2 17 BUN 116 Cr 1.92 Lactate 2.4 AST 34 ALT 23 ALP 327 Trop 12 Albumin 2.7 Total protein 7.2 Thoracentesis Fluid studies: WBC 152 x10^3 (23% PMNs, 76% monos RBC 156 x10^3 Pathologist report - bacterial cocci present LDH >2500 Protein 4.[address] chest 09/28: Large multiloculated left pleural fluid collection Small pericardial effusion No pneumothorax [1] Past Medical History: Diagnosis Date Arthritis Magallon esophagus Essential hypertension Hyperlipidemia Ventral incisional hernia [2] Past Surgical History: Procedure Laterality Date FUNDOPLASTY ESOPHAGOGASTRIC SANTOS LAPAROSCOPIC [3] Not on File documented in this encounter [facility] 09-28-2024 Radiology Diagnostic study note [facility] Imaging Services [address], [place] [address] Chest without Contrast MR#: [id number] Acct: [id number] Name: MAXX FORDE Rep #: [id number] : 1950 M 74 From: Noel Singleton MD PCP: Dr. Emanuel Garland DO Status: REG CLI Study:Chest without Contrast Date of Exam: 09/28/24 Exam# [id number] Ordering Dr: Dago Singleton MD PROCEDURE: CHEST WITHOUT CONTRAST 09/28/2024 REASON FOR EXAM: S/P THORA TECHNIQUE: Chest CT without contrast. Coronal and Sagittal reconstruction series were provided. One or more dose reduction techniques were used (e.g., Automated exposure control, adjustment of the mA and/or kV according to patient size, use of iterative reconstruction technique. RADIATION DOSE SUMMARY: CTDlvol: 16.62 mGy DLP: 677.09 mGycm COMPARISON: Pre-procedure CT of 09/28/2024 and ultrasound-guided thoracentesis images of 09/28/2024. FINDINGS: A small pericardial effusion is again noted. A large multiloculated left pleural fluid collection is again seen, although clearly diminished from the preprocedure study of earlier the same day. No pneumothorax is noted. Areas of significant left lung atelectasis are noted, and cannot exclude the presence of areas of pneumonitis. No solid-appearing mass is clearly evident. No right pleural effusion is seen. The visualized upper abdomen shows no acute process. Prominent degenerative changes of the spine are also seen. CT/Chest without Contrast IMPRESSION: 1. Large multiloculated left pleural fluid collection, diminished since the preceding left thoracentesis. 2. Small pericardial effusion again noted. 3. No pneumothorax is noted. Reading Location: [facility] CC: Dr. Dago Singleton MD; Dr. Emanuel Garland DO ~ Mold Injector: Signed [facility] 09-28-2024 Radiology Diagnostic study note [facility] Imaging Services [address], [place] [id number] Thoracentesis W US MR#: [id number] Acct: [id number] Name: MAXX FORDE Rep #: [id number] : 1950 M 74 From: Noel Singleton MD PCP: Dr. Emanuel Garland DO Status: REG CLI Study:Thoracentesis W US Date of Exam: 0 09/28/24 Exam# [id number] Ordering Dr: Km Lipscomb NP SHEAR GRINDER OPERATOR HELPER-C PROCEDURE: THORACENTESIS W US 09/28/2024 REASON FOR EXAM: LEFT PLEURAL EFFUSION TECHNIQUE: THORACENTESIS W US COMPARISON: Chest CT of 09/28/2024. FINDINGS: Initial images show multiple loculated components of a large left pleural fluid collection. Procedure: Following informed consent, and using standard sterile technique, an ultrasound-guided left thoracentesis was performed via a posterior approach. 2% lidocaine local anesthesia was followed by placement of a 5 Mongolian catheter into the left pleural fluid collection. Approximately 1340 mL lightly blood-tinged purulent appearing fluid was successfully removed. No complication was encountered, in the patient left the department in good condition without significant complaint US/Thoracentesis W US IMPRESSION: Successful diagnostic and therapeutic ultrasound-guided left thoracentesis. Laboratory results pending. Repeat CT examination to follow. Reading Location: [place] [address] CC: SHEAR GRINDER OPERATOR HELPER-Km Lipscomb; Dr. Emanuel Garland DO ~ Mold Injector: Signed [facility] 09-28-2024 Radiology Diagnostic study note [facility] Imaging Services [address] [place] [id number] Chest without Contrast MR#: [id number] Acct: [id number] Name: MAXX FORDE Rep #: [id number] : 1950 M 74 From: Noel Singleton MD PCP: Dr. Emanuel Garland DO Status: REG CLI Study:Chest without Contrast Date of Exam: 09/28/24 Exam# [id number] Ordering Dr: Km Lipscomb NP SHEAR GRINDER OPERATOR HELPER-Km PROCEDURE: CHEST WITHOUT CONTRAST 09/28/2024 REASON FOR EXAM: NEW 5 CM LUNG MASS left lower lobe TECHNIQUE: Chest CT without contrast. Coronal and Sagittal reconstruction series were provided. One or more dose reduction techniques were used (e.g., Automated exposure control, adjustment of the mA and/or kV according to patient size, use of iterative reconstruction technique RADIATION DOSE SUMMARY: CTDlvol: 17.10 mGy DLP: 638.45 mGycm COMPARISON: Chest CT of 09/19/2024. FINDINGS: The patient presented for (and was consented for) planned left lower lobe CT-guided core biopsy. Reimaging demonstrates a very large left pleural fluid collection, with some areas of loculation noted. The previous apparent left lower lobe mass is not identified on today's examination. No pneumothorax is noted. Also, mild cardiomediastinal shift to the right is seen. Additionally, newly seen is a small pericardial effusion. Because of these findings, a core biopsy was not performed. The patient was then consented for an ultrasound-guided left thoracentesis. CT/Chest without Contrast IMPRESSION: 1. Large left pleural fluid collection, increased since the study of 09/19/2024. 2. Small pericardial effusion now seen. 3. Additional findings as noted. Reading Location: [place] [address] CC: PEG Lipscomb; Dr. Emanuel Garland, DO ~ Mold Injector: Signed [facility] 09-22-2024 Evaluation note Diagnosis Onset Date Resolution Lung mass acute September 22, 025 7:59am Atrial fibrillation chronic Aug2024 7:59am Pleural effusion on left inactive September 22 7:59am [facility] Work Phone: 1(895) 254-296608-12-2025 Evaluation note* Diagnosis Onset Date Resolution Status Admit Date Lung mass acute September 22, 025 7:59am Atrial fibrillation chronic Augus 2024 7:59am Pleural effusion on left inactive September 22, 2024 7:59am (HFpEF) heart failure with preserved ejection fraction acute Sept emb2024 9:19am Atrial fibrillation chronic Septe mb2024 9:19am Essential hypertension chronic Se ptember 2024 9:19am Hyperlipidemia chronic October 20, 2024 9:19am [facility] Work Phone: 1(984) 717-665408-09-2025 Discharge summary [facility] Medical Records Department [address] [place] [address] Emergency Department Summary 09/19/24 MR#: [id number] Acct: [id number] Name: MAXX FORDE Rep #:[id number] : 1950 74 From: Candido Rivera MD PCP: Dr. Emanuel Garland, DO Status:REG ER Location: ED HPI History [...] past medical history of A-fib, hypertension and Magallon's esophagitis. Typically is on Eliquis it has been stopped since Saturday due estee upcoming endoscopy. No prior history of DVT or PE. No prior [place], coronary disease or stents. States he was [...] Travel/Surgery, Recent Immobilization, Prior DVT or PE, Canceror OCP + Smoking + >/=35 TAD Risk Factors: Negative for Marfan's Syndrome [facility] Medical History Atrial fibrillation Premature atrial contractions [...] Family History Father Heart disease Surgical History Magallon esophagus (12/2022) History of ventral hernia repair [...] are nontender no edema no cords. Normal principal security architect strength. Normal equal symmetrical radial pulses. Back [...] Factors: 1 or 2 Risk Factors Troponin: Score: 3 MDM MDM MDM Narrative Medical decision making narrative: 74-year-old male chest pain at rest with no recent exertional symptoms. He is never had a DVT or PEbut it is left-sided chest pain that is not reproducible and appears to be pleuritic. Undergoing cardiac workup. He is already receivedaspirin by squad and nitro nitro with limited no relief. He willbe given morphine for pain and Zofran. D-dimer is being performed also for the possibility this being at PE. Clinically does not sound like a dissection he has no back pain. Otherwise he is medicallystable. He will undergo a cardiac workup. Repeat [...] His daughter works here as a neurology computer forensics technician. History & Record Review Discussion w/independent [...] 74.3 H Lymph % (Auto) 17.0 L Barren % (Auto) 5.9 Eos % (Auto) 2.1 [...] pneumonia in the appropriate scenario. Reading Location: [id number] Chest CTA 09/19/24 13:38 IMPRESSION: 1. No [...] 4. Moderate esophageal hiatal hernia. Reading Location: [facility] Chest x-ray, portable, single view interpreted by [...] rate of 92 no acute signs of [place] or ischemia. Discharge Plan Triage Chief Complaint: Chest Pain ED Provider: Candido Rivera Dx/Rx/DC Orders Clinical Impression: Chest pain, Pleural effusion on left, History of Magallon esophagus, History of atrial fibrillation Instructions: ED [...] Qty: 180 3RF Primary Care Provider: Emanuel Garland Referrals: Han Schumacher DO [Med Staff - Active Staff] - As soon as possible (Call his office this Saturday to get an appointment. Tell them you have a left pleural effusion that needs further evaluation.) Emanuel Garland DO [Primary Care Provider] - Activity Restrictions/Additional Instructions: Not specifically sure what caused the chest pain. It could be from esophageal spasm but there is noway to diagnose that in the ER. It [...] if you are feeling worse. Print Language: French Disposition Disposition: Home, Self Care What to do if you have Problems For any increased pain, shortness of breath, bleeding, nausea or vomiting, chestpain, or any unexpected problems, contact your Primary Care Provider. Call [facility] ([phone]) or report tothe closest Emergency Room. Call 911 if necessary. 09/19/24 1550 Cosigner Signature (if applicable): CC: Dr. Emanuel Garland DO ~ Signed [facility]08-09-2025 Radiology Diagnostic study note [facility] Imaging Services [address] [place] [address] CTA Chest W/WO Contrast MR#: [id number] Acct: [id number] Name: MAXX FORDE Rep #: [id number] : 1950 M 74 From: Azalea Turner MD PCP: Dr. Emanuel Garland DO Status: REG ER Study:CTA Chest W/WO Contrast Date of Exam: 09/19/24 Exam# [id number] Ordering Dr: Ovidio Rivera MD EXAM: CT Angiography Chest Without and With Intravenous Contrast CLINICAL INDICATION: LEFT-SIDED SUDDEN ONSET PLEURITIC CHEST PAIN TECHNIQUE: Axial computed tomographic angiography images of the chest without and with intravenous contrast. This CT exam was performed using one or more of the following dose reduction techniques: automated exposure control,adjustment of the mA and/or kV according to [...] emphysema/COPD with left pleural effusion and associated compressiveatelectasis. Nodular opacity in the left lower lobe measuring up to 5.0 cm. Mass can not be excluded. No pneumothorax. HEART: Unremarkable. No cardiomegaly. No significant pericardial effusion. No evidence of RV dysfunction. MEDIASTINUM: Scattered mediastinal lymph nodes some of which are upper limits of normal in size andare most likely reactive lymph nodes. Moderate esophageal [...] 4. Moderate esophageal hiatal hernia. Reading Location: [facility] CC: Dr. Candido Rivera MD; Dr. Emanuel Garland DO ~ Mold Injector: Signed [facility]08-09-2025 Discharge summary Author Candido Rivera [facility] Note Date/Time September 19, 2024 3:5 0pm [facility] Medical Records Department [address] [place] [address] Emergency Department Summary 09/19/24 MR#: [id number] Acct: [id number] Name: MAXX FORDE Rep #:[id number] : 1950 74 From: Candido Rivera MD PCP: Dr. Emanuel Garland DO Status:REG ER Location: ED HPI History [...] past medical history of A-fib, hypertension and Magallon's esophagitis. Typically is on Eliquis it has been stopped since Saturday due estee upcoming endoscopy. No prior history of DVT or PE. No prior [place], coronary disease or stents. States he was [...] TAD Risk Factors: Negative for Marfan's Syndrome [facility] Medical History Atrial fibrillation Premature atrial contractions [...] 5 mg PO BID Faxing to [facility] 06/09/24 09/16/24 Rx [facility] tabs Allergy/AdvReac Type Severity Reaction Status Date / Time No Known Allergies Allergy Verified 09/19/24 12:27 Family History Father Heart disease Surgical History Magallon esophagus (12/2022) History of ventral hernia repair [...] are nontender no edema no cords. Normal principal security architect strength. Normal equal symmetrical radial pulses. Back [...] His daughter works here as a neurology computer forensics technician. History & Record Review Discussion w/independent [...] 74.3 H Lymph % (Auto) 17.0 L Barren % (Auto) 5.9 Eos % (Auto) 2.1 [...] pneumonia in the appropriate scenario. Reading Location: [facility] Chest CTA 09/19/24 13:38 IMPRESSION: 1. No [...] 4. Moderate esophageal hiatal hernia. Reading Location: [facility] Chest x-ray, portable, single view interpreted by [...] rate of 92 no acute signs of [place] or ischemia. Discharge Plan Triage Chief Complaint: Chest Pain ED Provider: Candido Rivera Dx/Rx/DC Orders Clinical Impression: Chest pain, Pleural effusion on left, History of Magallon esophagus, History of atrial fibrillation Instructions: ED [...] Qty: 180 3RF Primary Care Provider: Emanuel Garland Referrals: Han Schumacher DO [Med Staff - Active Staff] - As soon as possible (Call his office this Saturday to get an appointment. Tell them you have a left pleural effusion that needs further evaluation.) Emanuel Garland DO [Primary Care Provider] - Activity Restrictions/Additional [...] if you are feeling worse. Print Language: French Disposition Disposition: Home, Self Care What to do if you have Problems For any increased pain, shortness of breath, bleeding, nausea or vomiting, chestpain, or any unexpected problems, contact your Primary Care Provider. Call [facility] ([phone]) or report to the closest Emergency Room. Call 911 if necessary. 09/19/24 1550 <Electronically signed by Candido Rivera MD> Cosigner Signature (if applicable): CC: Dr. Emanuel Garland DO ~ Signed [facility] Work Phone: 1(176) 644-197008-09-2025 Radiology Diagnostic study note [facility] Imaging Services [address] [place] [id number] Chest 1 View (Portable) MR#: [id number] Acct: [id number] Name: MAXX FORDE Rep #: [id number] : 1950 M 74 From: Madeline Castelan MD PCP: Dr. Emanuel Galrand DO Status: REG ER Study:Chest 1 View (Portable) Date of Exam: 09/19/24 Exam# [id number] Ordering Dr: Ovidio Rivera MD PROCEDURE: CHEST [...] pneumonia in the appropriate scenario. Reading Location: [id number] CC: Dr. Candido Rivera MD; Dr. Emanuel Garland DO ~ Mold Injector: Signed [facility]06-11-2025 NoteOPG [address] [facility] [address] [facility] [place] [facility] [phone] Maxx Forde is a 74 y.o. male being seen on 07/22/24 for Chief Complaint Patient presents with Follow-up HPI: The patient presents today for follow-up after undergoing RFA for his known history of long segment Magallon's. His last treatment was performed on 06/16/2024. At that time his [place] classification was C0-M3. He underwent treatment with the Barrx 360 express catheter and balloon based endoscopic ablation system. Overall he is doing very well. He denies any heartburn, regurgitation, or meaningful esophageal dysphagia. 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 male being seen on 07/22/24 for Chief Complaint Patient presents with Follow-up HPI: The patient presents today for follow-up after undergoing RFA for his known history of long segmentBarrett's. His last treatment was performed on 06/16/2024. At that time his [place] classification wasC0-M3. He underwent treatment with the Barrx 360 express catheter and balloon based endoscopic ablation system. Overall he is doing very well. He denies any heartburn, regurgitation, or meaningful esophageal dysphagia. 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 Normal Gait. Assessment: 1. Magallon's esophagus with dysplasia 2. Long-segment Magallon's esophagus 3. Status post laparoscopic Santos fundoplication [...] week Drug use: Never documented in this [id number] NoteProgress Notes Abbe Wood MD (Physician) General Surgery Expand All Collapse All [facility] [address] ([address]) [facility] [address] [facility] [phone] Maxx Forde is a 74 y.o. male being seen on 04/29/24 for Chief Complaint Patient presents with Follow-up ESOPHAGOSCOPY WITH RFA HPI: The patient presents today to schedule his next RFA. He has been undergoing treatment for a long segment Magallon's. He is previously undergone a Santos fundoplication. His last treatment was on 04/14/2024. At that time his [place] classification was C1-M7. He did reasonably well after ablation with only minimal discomfort for couple of days. 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 [facility]03-19-2025 NoteOPG [address] ([address]) [facility] [address] [facility] [phone] Maxx Forde is a 74 y.o. male being seen on 04/29/24 for Chief Complaint Patient presents with Follow-up ESOPHAGOSCOPY WITH RFA HPI: The patient presents today to schedule his next RFA. He has been undergoing treatment for a long segment Magallon's. He is previously undergone a Santos fundoplication. His last treatment was on 04/14/2024. At that time his [place] classification was C1-M7. He did reasonably well after ablation with only minimal discomfort for couple of days. 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 male being seen on 04/29/24 for Chief Complaint Patient presents with Follow-up ESOPHAGOSCOPY WITH RFA HPI: The patient presents today to schedule his next RFA. He has been undergoing treatment for a long segment Magallon's. He is previously undergone a Santos fundoplication. His last treatment was on 04/14/2024. At that time his Livermore classification was C1-M7. He did reasonably well after ablation with only minimal discomfort for couple of days. 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 Normal Gait. Assessment: 1. Long-segment Magallon's esophagus 2. Status post laparoscopic Santos fundoplication 3. Magallon's esophagus with dysplasia No orders of the [...] week Drug use: Never documented in this [id number] NoteOPG [address] (11) [facility] [address] [facility] [phone] Maxx Forde is a 73 y.o. male being seen on 01/29/24 for Chief Complaint Patient presents with Follow-up RFA HPI: The patient presents today to schedule his next RFA. He has a known history of long segment Magallon's and has undergone RFA. He is also undergoing a Santos fundoplication. Today he denies heartburn, regurgitation, or esophageal dysphagia. He and his are getting ready to leave for [place] for 2 months. 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 male being seen on 01/29/24 for Chief Complaint Patient presents with Follow-up RFA HPI: The patient presents today to schedule his next RFA. He has a known history of long segment Magallon's and has undergone RFA. He is also undergoing a Snatos fundoplication. Today he denies heartburn, regurgitation, or esophageal dysphagia. He and his are getting ready to leave for [place] for 2months. 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 Normal Gait. Assessment: 1. Long-segment Magallon's esophagus 2. Status post laparoscopic Santos fundoplication 3. Magallon's esophagus with dysplasia No orders of the defined types were placed in this encounter. Plan: Schedule esophagoscopy with RFA in April 2024. Risk, benefits, and alternatives were discussed withthe patient in detail prior to obtaining consent. Abbe Wood MD documented in this [id number] NoteOPG [address] (11) [facility] [address] [facility] [phone] Maxx Forde is a 73 y.o. male being seen on 08/14/23 for Chief Complaint Patient presents with Follow-up Long segment Maagllon's esophagus, RFA HPI: The patient presents today for follow-up after his most recent RFA. He has a known history of long segment Magallon's and has previously undergone fundoplication. His last RFA was on 07/09/2023. At that time his Livermore classification was C0-M5. There was mainly spotty disease noted. He underwent treatment with RFA. Today he denies meaningful heartburn, regurgitation, or esophageal dysphagia. He reports significant decrease in the overall amount of phlegm in the back of his throat. 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 male being seen on 08/14/23 for Chief Complaint Patient presents with Follow-up Long segment Magallon's esophagus, RFA HPI: The patient presents today for follow-up after his most recent RFA. He has a known history of long segment Magallon's and has previously undergone fundoplication. His last RFA was on 07/09/2023. At that time his Livermore classification was C0-M5. There was mainly spotty disease noted. He underwent treatment with RFA. Today he denies meaningful heartburn, regurgitation, or esophageal dysphagia. He reports significant decrease in the overall amount of phlegm in the back of his throat. Past Medical History: Diagnosis Date Atrial fibrillation (HCC) 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 2017 Thom GERD (gastroesophageal [...] Location: Endo; Service: General Surgery ESOPHAGOGASTRODUODENOSCOPY 11/25/2017 Magallon's esophagus.....Thomae ESOPHAGOGASTRODUODENOSCOPY 12/21/2019 [place]ae ESOPHAGOSCOPY N/A 01/02/2021 [...] insight intact. Normal Gait. Assessment: 1. Long-segment Magallon's esophagus 2. Status post laparoscopic Santos fundoplication 3. Magallon's esophagus with dysplasia No orders of the defined types were placed in this encounter. Plan: Schedule esophagoscopy with surveillance biopsies and possible RFA. Risk, benefits, and alternatives were discussed with the patient in detail prior to obtaining consent. Abbe Wood MD documented in this [id number] History of Present illness Narrative* Abbe Wood MD - 05/22/2023 8:25 AM EDT [facility] [address] (11) [facility] [address] [facility] [phone] Maxx Forde is a 73 y.o. male being seen on 05/22/23 for Chief Complaint Patient presents with Follow-up Long-segment Magallon's esophagus HPI: The patient presents today for follow-up and to schedule his next RFA. He has a history of long segment Magallon's. He is previously undergone fundoplication. He denies heartburn, regurgitation, or meaningful esophageal dysphagia. He is tolerating a regular diet. His last RFA was on 04/16/2023. A Barrx 360 express balloon was used for therapy. Past Medical History: Diagnosis Date Atrial fibrillation (HCC) 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 2017 Thom GERD (gastroesophageal [...] Location: Endo; Service: General Surgery ESOPHAGOGASTRODUODENOSCOPY 11/25/2017 Magallon's esophagus.....Thomae ESOPHAGOGASTRODUODENOSCOPY 12/21/2019 [place]ae ESOPHAGOSCOPY N/A 01/02/2021 [...] insight intact. Normal Gait. Assessment: 1. Long-segment Magallon's esophagus 2. Status post laparoscopic Santos fundoplication 3. Magallon's esophagus with dysplasia No orders of the defined types were placed in this encounter. Plan: Schedule esophagoscopy with RFA. Risk, benefits, and alternatives were discussed with the patient in detail prior to obtaining consent. Abbe Wood MD documented in this [id number] History of Present illness Narrative* Abbe Wood MD - 12/05/2022 8:19 AM EDT [facility] [address] ([address]) [facility] [address] [facility] [phone] Maxx Forde is a 72 y.o. male being seen on 12/05/22 for Chief Complaint Patient presents with Follow-up RFA HPI: The patient presents today to schedule his next RFA. He has a known history of long segment Magallon's. He has undergone multiple RFA treatments. On 04/04/2020 he underwent robotic assisted laparoscopic hiatal hernia repair with mesh and LINX sphincter augmentation. He had a recurrent hiatal hernia and on 10/09/2021 underwent conversion from LINX sphincter augmentation to Santos fundoplication alongwith repair of his recurrent hiatal hernia. His last treatment was on 10/16/2022. At that time his Livermore classification was C1-M5. He did well after treatment. He denies meaningful heartburn, regurgitation, or esophageal dysphagia. He did have retained gastric contents in his last EGD. He denies sign ificant bloating as long as he takes his time when he eats. He and his are planning to go to [place] after 2022 and will return in early April 2023. Past Medical History: Diagnosis Date Atrial fibrillation (HCC) 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 2017 Thomae GERD (gastroesophageal reflux disease) Hiatal hernia 07/31/2022 small type-I sliding Hypercholesteremia Hypertension Past Surgical History: Procedure Laterality Date ABDOMINAL HERNIA REPAIR 02/26/2014 EGD N/A 04/04/2020 Procedure: ESOPHAGOGASTRODUODENOSCOPY; Surgeon: Abbe Wood MD; Location: Main OR; Service: Gen-Robotics EGD N/A 12/15/2020 Procedure: ESOPHAGOGASTRODUODENOSCOPY WITH BIOPSY; Surgeon: bAbe Wood MD; Location: [facility]; Service: General Surgery EGD N/A 12/27/2020 Procedure: ESOPHAGOSCOPY WITH BIOPSY; Surgeon: Abbe Wood MD; Location: [facility]; Service: General Surgery ESOPHAGOGASTRODUODENOSCOPY 11/25/2017 Magallon's esophagus.....Thomae ESOPHAGOGASTRODUODENOSCOPY 12/21/2019 [place]ae ESOPHAGOSCOPY N/A 01/02/2021 Procedure: ESOPHAGOSCOPY WITH RFA; Surgeon: Abbe Wood MD; Location: Endo; Service: Gastroenterology ESOPHAGOSCOPY N/A 07/04/2021 Procedure: ESOPHAGOSCOPY; Surgeon: Abbe Wood MD; Location: [facility]; Service: Gastroenterology ESOPHAGOSCOPY N/A 07/18/2021 Procedure: ESOPHAGOSCOPY [...] insight intact. Normal Gait. Assessment: 1. Long-segment Magallon's esophagus No orders of the defined types were placed in this encounter. Plan: Schedule esophagoscopy with RFA. Risk, benefits, and alternatives were discussed with the patient detail prior to obtaining consent. The patient will need to hold Eliquis per protocol prior to the procedure. Abbe Wood MD documented in this [id number] History of Present illness Narrative* Abbe Wood MD - 12/05/2022 8:19 AM EDT [facility] [address] (11) [facility] [address] [facility] [phone] Maxx Forde is a 72 y.o. male being seen on 12/05/22 for Chief Complaint Patient presents with Follow-up RFA HPI: The patient presents today to schedule his next RFA. He has a known history of long segment Magallon's. He has undergone multiple RFA treatments. On 04/04/2020 he underwent robotic assisted laparoscopic hiatal hernia repair with mesh and LINX sphincter augmentation. He had a recurrent hiatal hernia and on 10/09/2021 underwent conversion from LINX sphincter augmentation to Santos fundoplication alongwith repair of his recurrent hiatal hernia. His last treatment was on 10/16/2022. At that time his Livermore classification was C1-M5. He did well after treatment. He denies meaningful heartburn, regurgitation, or esophageal dysphagia. He did have retained gastric contents in his last EGD. He denies sign ificant bloating as long as he takes his time when he eats. He and his are planning to go to [place] after 2022 and will return in early April 2023. 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 Normal Gait. Assessment: 1. Long-segment Magallon's esophagus No orders of the defined types were placed in this encounter. Plan: Schedule esophagoscopy with RFA. Risk, benefits, and alternatives were discussed with the patient detail prior to obtaining consent. The patient will need to hold Eliquis per protocol prior to the procedure. Abbe Wood MD documented in this [id number] History of Present illness Narrative* Abbe Wood MD - 09/13/2022 8:33 AM EDT [facility] [address] (11) [facility] [address] [facility] [phone] Maxx Forde is a 72 y.o. male being seen on 09/13/22 for Chief Complaint Patient presents with Follow-up Magallon's esophagus HPI: The patient presents today to schedule his next RFA. He has a known history of long segment Magallon's. He has undergone multiple RFA treatments. 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 Normal Gait. Assessment: 1. Magallon's esophagus with dysplasia 2. Status post laparoscopic Santos fundoplication No orders of the defined types were placed in this encounter. Plan: Schedule esophagoscopy with RFA. Risk, benefits, and alternatives were discussed with the patient detail prior to obtaining consent. Abbe Wood MD documented in this [id number] History of Present illness Narrative* Abbe Wood MD - 02/07/2022 8:22 AM EST [facility] [address] (11) [facility] [address] [facility] [phone] Maxx Forde is a 71 y.o. male being seen on 02/07/22 for Chief Complaint Patient presents with Follow-up RFA HPI: The patient presents today to schedule his next RFA. He has a known history of long segment Magallon's. He has been undergoing RFA, however, the treatment stalled due to recurrent hiatal hernia and ongoing regurgitation. He underwent a robotic assisted laparoscopic redo hiatal hernia repair with mesh and redo Santos fundoplication on 10/09/2021. He denies heartburn, regurgitation, or esophageal dysphagia. He underwent esophagoscopy with RFA on 12/14/2021. At that time his Livermore classification wasC2-M8. He underwent treatment with the Barrx 360 express catheter and balloon based endoscopic ablation system. The patient is leaving next week for [place] and will be gone for 2 months. 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 Normal Gait. Assessment: 1. Magallon's esophagus with dysplasia 2. Status post laparoscopic Santos fundoplication No orders of the defined types were placed in this encounter. Plan: Schedule esophagoscopy with RFA. Risk, benefits, and alternatives were discussed with the patient in detail prior to obtaining consent. Abbe Ray Israel, MD documented in this [id number] History of Present illness Narrative* Abbe Wood MD - 11/23/2021 8:13 AM EDT [facility] [address] (11) [facility] [address] [facility] [phone] Maxx Forde is a 71 y.o. male being seen on 11/23/21 for Chief Complaint Patient presents with Follow-up 4 week hiatal hernia repair check HPI: The patient presents today for second postoperative visit and to update his history and physical prior to undergoing his next RFA treatment. He has a known history of long segment Magallon's. He has been undergoing RFA, however, the [...] few weeks. 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 Status post laparoscopic Santos fundoplication 2. Magallon's esophagus with dysplasia No orders of the defined types were placed in this encounter. Plan: Proceed with esophagoscopy and RFA on 12/14/2021. Risk, benefits, and alternatives were discussed with the patient in detail prior to obtaining consent. Abbe Wood MD documented in this [id number] History of Present illness Narrative* Cindi Ochoa CNP - 10/24/2021 8:56 AM EDT [facility] PATIENT: Maxx Forde DATE / TIME: 10/24/21 9:03 AM POS: Office AGE: 71 y.o. : 1950 RACE: [1] SEX: male PCP: Dago Mcnamara MD REFERRAL: No ref. provider found SUBJECTIVE: Patient presents for first post operative visit after undergoing a Robotic assisted laparoscopic redo hiatal hernia repair with mesh and redo Santos fundoplication. He does have a known history of long segment Magallon's with dysplasia. He has been undergoing RFA treatments but treatments stalled sec ondary to disrupted Santos and recurrent hiatal hernia. His last Livermore classification was given C10-M10, His last RFA [...] and redo Santos fundoplication PLAN: Diet per [facility] protocol Continue lifting restrictions [place] removed Schedule esophagoscopy with RFA Follow up with Dr. Wood in 4 weeks documented in this [id number] History of Present illness Narrative* Abbe Wood MD - 08/16/2021 8:24 AM EDT [facility] [address] ([address]) [facility] [address] [facility] [id number] Maxx Forde is a 71 y.o. male being seen on 08/16/21 for Chief Complaint Patient presents with Follow-up EGD with RFA HPI: The patient presents today to schedule his next RFA. He has a known history of long segment Magallon's. He previously underwent a robotic assisted laparoscopic hiatal hernia repair with mesh and Santos fundoplication. He had a recurrent hiatal hernia. He started RFA on 05/01/2021. His most recent treatment was on 07/18/2021. At that time his Livermore classification was C6-M7. He underwent treatment with the Barrx 360 express catheter and balloon based endoscopic ablation system. He has very infrequent heartburn. He denies significant regurgitation. He does have some esophageal dysphagia. He avoids greasy foods because they are very difficult to get down. 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 2017 Chau GERD (gastroesophageal reflux disease) Hiatal hernia 12/15/2020 3 cm, type-I sliding Hypercholesteremia Hypertension Past Surgical History: Procedure Laterality Date ABDOMINAL HERNIA REPAIR 02/26/2014 EGD N/A 04/04/2020 Procedure: ESOPHAGOGASTRODUODENOSCOPY; Surgeon: Abbe Wood MD; Location: [facility] OR; Service: Gen-Robotics EGD N/A 12/15/2020 Procedure: ESOPHAGOGASTRODUODENOSCOPY WITH BIOPSY; Surgeon: Abbe Wood MD; Location: Endo; Service: General Surgery EGD N/A 12/27/2020 Procedure: ESOPHAGOSCOPY WITH BIOPSY; Surgeon: Abbe Wood MD; Location: [facility]; Service: General Surgery ESOPHAGOGASTRODUODENOSCOPY 11/25/2017 Magallon's esophagus.....Thomae ESOPHAGOGASTRODUODENOSCOPY 12/21/2019 [place]ae ESOPHAGOSCOPY N/A 01/02/2021 Procedure: ESOPHAGOSCOPY WITH RFA; Surgeon: Abbe Wood MD; Location: [facility]; Service: Gastroenterology ESOPHAGOSCOPY N/A 07/04/2021 Procedure: ESOPHAGOSCOPY; Surgeon: Abbe Wood MD; Location: [facility]; Service: Gastroenterology ESOPHAGOSCOPY N/A 07/18/2021 Procedure: ESOPHAGOSCOPY [...] and insight intact. Normal Gait. Assessment: 1. Magallon's esophagus with dysplasia 2. Status post laparoscopic Santos fundoplication 3. Slipped Santos fundoplication No orders of the defined types were placed in this encounter. Plan: Schedule esophagoscopy with RFA. Risk, benefits, and alternatives were discussed with the patient detail prior to obtaining consent Abbe Wood MD documented in this [id number] History of Present illness Narrative* Mayuri Ramirez RN - 07/18/2021 9:45 AM EDT Prior auth completed for carafate suspension at this time via cover my meds documented in this [id number] History of Present illness Narrative* Abbe Wood MD - 05/17/2021 1:00 PM EDT [facility] [address] ([address]) [facility] [address] [facility] [phone] Maxx Forde is a 71 y.o. male being [...] has a known history of long segment Magallon's indeterminate for dysplasia. On 04/04/2020 he underwent a robotic assisted laparoscopic hiatal hernia repair with mesh and Santos fundoplication. On 12/15/2020 he underwent an EGD. 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 There was also evidence of slipped Santos with recurrent hiatal hernia. Biopsies revealed Magallon's indeterminate for dysplasia. He underwent repeat EGD with biopsy on 12/27/2020. Biopsies again came back indeterminate for dysplasia. On 01/02/2021 he underwent RFA. On 05/01/2021 he returned for a second RFA treatment. At that time his Livermore classification was noted to be C 10-M10. He again underwent treatment with the Barrx-360 express balloon catheter system. He returns today for follow- up. He says that his swallowing has improved. He also tells me that he has had significantly less secretions and phlegm since the most recent treatment. There was increased overall amount of Magallon's noted on the most recent scope. 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 Normal Gait. Assessment: 1. Magallon's esophagus with dysplasia 2. Status post laparoscopic Santos fundoplication 3. Slipped Santos fundoplication 4. Hiatal hernia No orders of the defined types were placed in this encounter. Plan: 1. I had a detailed discussion with the patient regarding his current clinical status. He has long segment Magallon's indeterminate for dysplasia. I did not see [...] RFA. Abbe Wood MD documented in this [id number] History of Present illness Narrative* Abbe Wood MD - 02/08/2021 8:22 AM EST [facility] PATIENT: Maxx Forde DATE / TIME: 02/08/21 8:22 AM POS: Office AGE: 70 y.o. : 1950 RACE: [1] SEX: male PCP: Dago Mcnamara MD REFERRAL: No ref. provider found TOS: SUBJECTIVE: The patient returns today after undergoing RFA with the express 360 balloon on 01/02/2021 for long segment Magallon's indeterminate for dysplasia. He says he had [...] visible evidence of intestinal metaplasia with a Livermore classification of C5 M12. Biopsies showed Magallon's esophagus indeterminate for dysplasia. He also had a small recurrent sliding hiatal hernia. Repeat endoscopy with biopsy on 12/27/2020 again showed Magallon'sesophagus indeterminate for dysplasia. Based on these findings, the patient underwent the above-stated RFA. OBJECTIVE: BP (!) 149/92 Pulse 94 Ht 6' Wt 87.7 kg (193 lb 4.8 oz) SpO2 98% BMI 26.22 kg/m ASSESSMENT: Recurrent hiatal hernia status Santos post fundoplication, long segment Magallon's indeterminate fordysplasia status post initial RFA PLAN: 1. The patient will be due for another RFA treatmen on 03/04/2021. The patient will be in [place] atthat time and wants to delay his next treatment until the end of April. I did discuss the potentialdownside to delaying treatment. The patient expressed understanding but still wants to wait until he gets back from [place] at the end of April 2021. documented in this [id number] History of Present illness Narrative* Abbe Wood MD - 10/21/2020 8:27 AM EDT [facility] [address] ([address]) [facility] [address] [facility] [id number] Maxx Forde is a 70 y.o. male being [...] has a known history of long segment Magallon's without dysplasia and a large paraesophageal hiatal [...] is stable. Past Medical History: Diagnosis Date Magallon's esophagus 2017 Cecille Hypercholesteremia Hypertension Past Surgical History: Procedure Laterality Date ABDOMINAL HERNIA REPAIR 02/26/2014 EGD N/A 04/04/2020 Procedure: ESOPHAGOGASTRODUODENOSCOPY; Surgeon: Abbe Wood MD; Location: Main OR; Service: [employer] ESOPHAGOGASTRODUODENOSCOPY 11/25/2017 Magallon's esophagus.....Thomae ESOPHAGOGASTRODUODENOSCOPY 12/21/2019 Thomae HERNIA REPAIR Right [...] intact. Normal Gait. Assessment: 1. History of Magallon's esophagus 2. Status post laparoscopic Santos fundoplication No orders of the defined types were placed in this encounter. Plan: EGD with Biopsy Abbe Wood MD documented in this [id number] History of Present illness Narrative* Abbe Wood MD - 10/21/2020 8:27 AM EDT [facility] [address] ([address]) [facility] [address] [facility] [phone] Maxx Forde is a 70 y.o. male being [...] has a known history of long segment Magallon's without dysplasia and a large paraesophageal hiatal [...] is stable. Past Medical History: Diagnosis Date Magallon's esophagus 2017 Cecille Hypercholesteremia Hypertension Past Surgical History: Procedure Laterality Date ABDOMINAL HERNIA REPAIR 02/26/2014 EGD N/A 04/04/2020 Procedure: ESOPHAGOGASTRODUODENOSCOPY; Surgeon: Abbe Wood MD; Location: Main OR; Service: [employer] ESOPHAGOGASTRODUODENOSCOPY 11/25/2017 Magallon's esophagus.....Thomae ESOPHAGOGASTRODUODENOSCOPY 12/21/2019 Thomae HERNIA REPAIR Right [...] intact. Normal Gait. Assessment: 1. History of Magallon's esophagus 2. Status post laparoscopic Santos fundoplication No orders of the defined types were placed in this encounter. Plan: EGD with Biopsy Abbe Wood MD [facility] Diagnosis History of Magallon's esophagus- Primary Status post laparoscopic Santos fundoplication History of Magallon's esophagus Status post laparoscopic Santos fundoplication History of Magallon's esophagus Status post laparoscopic Santos fundoplication [facility] History of Magallon's esophagus Status post laparoscopic Santos fundoplication Elective surgery- Primary History of Magallon's esophagus Status post laparoscopic Santos fundoplication [facility] Diagnosis History of Magallon's esophagus- Primary Status post laparoscopic Santos fundoplication History of Magallon's esophagus Status post laparoscopic Santos fundoplication History of Magallon's esophagus Status post laparoscopic Santos fundoplication [facility] History of Magallon's esophagus- Primary Paraesophageal hiatal hernia [facility] Diagnosis History of Magallon's esophagus Paraesophageal hiatal hernia Elective surgery- Primary Elective surgery- Primary Elective surgery History of Magallon's esophagus Paraesophageal hiatal hernia [facility] Diagnosis History of Magallon's esophagus Paraesophageal hiatal hernia History of Magallon's esophagus- Primary History of Magallon's esophagus [facility] Diagnosis Magallon's esophagus with dysplasia [facility] Diagnosis Magallon's esophagus with dysplasia- Primary Status post laparoscopic Santos fundoplication Hiatal hernia Diaphragmatic hernia without mention of obstruction or gangrene Magallon's esophagus with dysplasia Status post laparoscopic Santos fundoplication Hiatal hernia Diaphragmatic hernia without mention of obstruction or gangrene [facility] Diagnosis Magallon's esophagus with dysplasia- Primary Status post laparoscopic Santos fundoplication Slipped Santos fundoplication Hiatal hernia Diaphragmatic hernia without mention of obstruction or gangrene Slipped Santos fundoplication Magallon's esophagus with dysplasia Status post laparoscopic Santos fundoplication Slipped Santos fundoplication Hiatal hernia Diaphragmatic hernia without mention of obstruction or gangrene [facility] noteNo assessment information availableWCherrington [facility] Work Phone: evaluation note* Diagnosis Onset Date Resolution Status Essential hypertension [facility] Work Phone: Evaluation note* Diagnosis Magallon's esophagus with dysplasia- Primary Magallon's esophagus with dysplasia [facility] Diagnosis Magallon's esophagus with dysplasia- Primary Status post laparoscopic Santos fundoplication Slipped Santos fundoplication [facility] Diagnosis Encounter for surgical aftercare following surgery of digestive system- Primary [facility] Diagnosis Magallon's esophagus with dysplasia- Primary [facility] Diagnosis Status post laparoscopic Santos fundoplication- Primary Magallon's esophagus with dysplasia [facility] Diagnosis Magallon's esophagus with dysplasia- Primary Status post laparoscopic Santos fundoplication [facility] Diagnosis Magallon's esophagus with dysplasia- Primary Status post laparoscopic Santos fundoplication [facility] Diagnosis Magallon's esophagus with dysplasia- Primary Status post laparoscopic Santos fundoplication Status post laparoscopic Santos fundoplication [facility] Diagnosis Magallon's esophagus with dysplasia- Primary Status post laparoscopic Santos fundoplication Status post laparoscopic Santos fundoplication Magallon's esophagus with dysplasia Status post laparoscopic Santos fundoplication [facility]* Diagnosis Magallon's esophagus with dysplasia- Primary Status post laparoscopic Santos fundoplication 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 Status post laparoscopic Santos fundoplication [facility]* Diagnosis Long-segment Magallon's esophagus- Primary Status post laparoscopic Santos fundoplication documented in this encounter [facility] note* Diagnosis Long-segment Magallon's esophagus- Primary Status post laparoscopic Santos fundoplication Status post laparoscopic Santos fundoplication documented in this encounter [facility] note* Diagnosis Long-segment Magallon's esophagus- Primary Long-segment Magallon's esophagus documented in this encounter [facility] note* Diagnosis Long-segment Magallon's esophagus- Primary Status post laparoscopic Santos fundoplication Magallon's esophagus with dysplasia Long-segment Magallon's esophagus Status post laparoscopic Santos fundoplication Magallon's esophagus with dysplasia documented in this encounter [facility] note* Diagnosis Long-segment Magallon's esophagus- Primary Status post laparoscopic Santos fundoplication Magallon's esophagus with dysplasia Long-segment Magallon's esophagus Status post laparoscopic Santos fundoplication Magallon's esophagus with dysplasia documented in this encounter [facility] note* Diagnosis Pre-op examination- Primary Complication of anesthesia, initial encounter 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 Hypertension, unspecified type Hyperlipidemia, unspecified hyperlipidemia type Gastroesophageal reflux disease, unspecified whether esophagitis present Preop examination- Primary Unspecified pre-operative examination Pre-op examination Gastroesophageal reflux disease, unspecified whether esophagitis present Hypertension, unspecified type Complication of anesthesia, initial encounter Hyperlipidemia, unspecified hyperlipidemia type Preop examination- Primary Unspecified pre-operative examination Hypertension, unspecified type Hyperlipidemia, unspecified hyperlipidemia type Slipped Santos fundoplication Long-segment Magallon's esophagus- Primary Status post laparoscopic Santos fundoplication Magallon's esophagus with dysplasia [facility] Diagnosis Pre-op examination- Primary Complication of anesthesia, initial encounter 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 Hypertension, unspecified type Hyperlipidemia, unspecified hyperlipidemia type Gastroesophageal reflux disease, unspecified whether esophagitis present Preop examination- Primary Unspecified pre-operative examination Pre-op examination Gastroesophageal reflux disease, unspecified whether esophagitis present Hypertension, unspecified type Complication of anesthesia, initial encounter Hyperlipidemia, unspecified hyperlipidemia type Preop examination- Primary Unspecified pre-operative examination Hypertension, unspecified type Hyperlipidemia, unspecified hyperlipidemia type Slipped Santos fundoplication Long-segment Magallon's esophagus- Primary Status post laparoscopic Santos fundoplication Magallon's esophagus with dysplasia documented in this encounter [facility] note* Diagnosis Pre-op examination- Primary Complication of anesthesia, initial encounter 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 Hypertension, unspecified type Hyperlipidemia, unspecified hyperlipidemia type Gastroesophageal reflux disease, unspecified whether esophagitis present Preop examination- Primary Unspecified pre-operative examination Pre-op examination Gastroesophageal reflux disease, unspecified whether esophagitis present Hypertension, unspecified type Complication of anesthesia, initial encounter Hyperlipidemia, unspecified hyperlipidemia type Preop examination- Primary Unspecified pre-operative examination Hypertension, unspecified type Hyperlipidemia, unspecified hyperlipidemia type Slipped Santos fundoplication Magallon's esophagus with dysplasia- Primary Long-segment Magallon's esophagus Status post laparoscopic Santos fundoplication documented in this encounter [facility] note* Diagnosis Onset Date Resolution Status Admit Date Lung mass acute September 22 7:59am Pleural effusion on left acute September 22, 2024 7:59am Shortness of breath acute Augus 2024 7:59am [place] [employer] Work Phone: Evaluation note* Diagnosis Loculated pleural effusion- Primary Unspecified pleural effusion Loculated pleural effusion Unspecified pleural effusion Empyema lung Empyema without mention of fistula PAF (paroxysmal atrial fibrillation) Atrial fibrillation 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 Magallon's esophagus History of repair of hiatal hernia High risk medication use Encounter for long-term (current) use of other medications Acute decompensated heart failure Anemia (Low HGB) Anemia, unspecified Electrolyte disorder (K, Cl, or Na) Electrolyte and fluid disorders not elsewhere classified Acute on chronic heart failure with preserved ejection fraction Empyema lung Empyema without mention of fistula [facility] Diagnosis Loculated pleural effusion Unspecified pleural effusion [facility] this [facility]* Diagnosis Empyema of lung- Primary Empyema without mention of fistula [facility] Diagnosis Empyema- Primary Empyema without mention of fistula 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 [facility] Diagnosis Pre-op examination- Primary Complication of anesthesia, initial encounter 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 Hypertension, unspecified type Hyperlipidemia, unspecified hyperlipidemia type Gastroesophageal reflux disease, unspecified whether esophagitis present Preop examination- Primary Unspecified pre-operative examination Pre-op examination Gastroesophageal reflux disease, unspecified whether esophagitis present Hypertension, unspecified type Complication of anesthesia, initial encounter Hyperlipidemia, unspecified hyperlipidemia type Preop examination- Primary Unspecified pre-operative examination Hypertension, unspecified type Hyperlipidemia, unspecified hyperlipidemia type Slipped Santos fundoplication Magallon's esophagus with dysplasia- Primary Long-segment Magallon's esophagus documented in this encounter [facility] Discharge instructionsAdditional Instructions Not specifically sure [...] the emergency department if you are feeling worse.[facility] Work Phone: Reason for visit Narrative* Auth/Cert Specialty Diagnoses / Procedures Referred By Molina t Referred To Contact Diagnoses Pleural Effusion (purulent drainage s/p thoracentesis) Glenny Wade MD [address] [place] [address] Phone: tel: fax: [facility] [address] [place] [address] Referral ID Status Reason Start Date Expiration Date Visits Re quested Visits Authorized [id number] 1 1 [facility] Summary Purpose Family History No Family History Records Found Relationship Condition Age at Onset Recorded Date/T german father Cardiac disease Unknown Advance Directives No Advanced Directives Records FoundDocuments on File Type Date Recorded 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 Advance Directives and Livin g Will 12/30/2019 12:00 AM Documents on File Type Date Recorded 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 Advance Directives and Living Will Documents on File Type Date Recorded 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 Advance Directives and Livin g Will 03/21/2020 12:42 PM Documents on File Type Date Recorded 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 Advance Directives and Livin g Will 04/04/2020 12:42 PM Latest Code Status on File Code Status Date Activated Date Inactivated Comments Full Code 04/04/2020 1:51 PM 04/05/2020 3:26 PM Documents on File Type Date Recorded 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 Advance Directives and Livin g Will 04/04/2020 12:42 PM Latest Code Status on File Code Status Date Activated Date Inactivated Comments Full Code 04/04/2020 1:51 PM 04/05/2020 3:26 PM Documents on File Type Date Recorded 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 Advance Directives and Livin g Will 12/15/2020 11:21 AM Documents on File Type Date Recorded 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 Advance Directives and Livin g Will 12/19/2020 11:21 AM Documents on File Type Date Recorded 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 Advance Directives and Livin g Will 12/27/2020 11:04 AM Advance Directive Response Recorded Date/ Time Advance Directives Yes February 18, 2014 11:33am Living Will Yes January 29, 11:11am Power of Buyer Planner Yes January 29, 2017 11:11am Documents on File Type Date Recorded 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 Yes September 19, 2024 12:32pm Advance Directives Yes December 15, 2021 9:42am Advance Directive Response Recorded Date/ Time Do you have a Healthcare Power of Buyer Planner? Yes September 19, 2024 12:32pm Do you have a Healthcare Power of Buyer Planner? No September 28, 2024 7:06pm Advance Directives Yes December 15, 2021 9:42am Date Activated Date Inactivated Comments 10/07/2024 4:24 AM Date Activated Date Inactivated Comments 10/06/2024 4:16 PM 10/07/2024 4:24 AM Date Activated Date Inactivated Comments 09/29/2024 2:43 PM 10/06/2024 4:16 PM Date Activated Date Inactivated Comments 10/07/2024 4:24 AM Date Activated Date Inactivated Comments 10/06/2024 4:16 PM 10/07/2024 4:24 AM Date Activated Date Inactivated Comments 09/29/2024 2:43 PM 10/06/2024 4:16 PM History of Present Illness * Cindi Ochoa, GLASSIE - 01/05/2020 9:41 AM EST [facility] [address] (11) [facility] [address] [facility] [id number] Patient Name: Maxx Forde Age: 69 y.o. Gender: male Referring [...] a EGD at that time that showed Magallon's esophagus and a hiatal hernia. He states [...] a large paraesophageal hernia and long segment Magallon's. Biopsies were taken that showed 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. Frequency of Symptoms: Symptoms more often with trigger foods Severity of Symptoms: increasing in severity Sleep Disruption: yes Aggravating Factors: fatty or greasy foods, large meal, late meal and garlic Alleviating Factors: PPI Medications Tried: Protonix HRQL SCORE: 27 Past Medical History: Diagnosis Date Magallon's esophagus 2017 Cecille Hypercholesteremia Hypertension Past Surgical History: Procedure Laterality Date ABDOMINAL HERNIA REPAIR 02/26/2014 ESOPHAGOGASTRODUODENOSCOPY 11/25/2017 Magallon's esophagus.....Thompollo ESOPHAGOGASTRODUODENOSCOPY 12/21/2019 Thompollo HERNIA REPAIR Right [...] SPHINCTER AUGMENTATION ROBOTIC XI, INTRAOPERATIVE ESOPHAGOGASTRODUODENOSCOPY 2. 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 Cindi Ochoa CNP documented in this encounter* Cindi Ochoa CNP - 04/05/2020 6:54 AM EST [facility] PATIENT: Maxx Forde DATE / TIME: 04/05/20 6:54 AM [...] Wood MD - 04/20/2020 8:48 AM EST [facility] PATIENT: Maxx Forde DATE / TIME: 04/20/20 8:48 AM [...] has a known history of long segment 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. OBJECTIVE: BP 139/86 Pulse [...] encounter Assessments Diagnosis Paraesophageal hiatal hernia- Primary 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 Heartburn Pharyngoesophageal dysphagia Dysphagia, pharyngoesophageal phase Bloating Flatulence, eructation, and gas pain Paraesophageal hiatal hernia Diagnosis Paraesophageal hiatal hernia- Primary Diagnosis Paraesophageal hiatal hernia- Primary Elective surgery- Primary Paraesophageal hiatal hernia Diagnosis Paraesophageal hiatal hernia- Primary Paraesophageal hiatal hernia Diagnosis Paraesophageal hiatal hernia- Primary Diagnosis Postoperative follow-up- Primary Follow-up examination, following unspecified surgery 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 Chief Complaint and Reason [...] of breath September 22, 2024 7: 59am Chief Complaint Admit Date chest pain September 19, 2024 12: 26pm Lung Mass September 22, 2024 7: 59am R06.02 - Shortness of breath September 8:59am new 5 cm lung mass LLL September 28, 2024 7:20am ABNORMAL LABS, CHEST PAIN, SOB September 282024 3:20pm Reason for Visit Admit Date Lung mass September 22, 2024 7: 59am Atrial fibrillation September 22, 2024 7: 59am Pleural effusion on left September 22 7:59am Chief Complaint Admit Date chest pain September 19, 2024 12: 26pm Lung Mass September 22, 2024 7: 59am R06.02 - Shortness of breath September 8:59am new 5 cm lung mass LLL September 28, 2024 7:20am ABNORMAL LABS, CHEST PAIN, SOB September 282024 3:20pm S/P [facility] 10/14October 20, 2024 9:19am Reason for Visit Admit Date Lung mass September 22, 2024 7: 59am Atrial fibrillation September 22, 2024 7: 59am Pleural effusion on left September 22 7:59am (HFpEF) heart failure with preserved eje ction fraction October 20, 2024 9:19am Atrial fibrillation October 20, 2024 9:19am Essential hypertension October 20 9:19am Hyperlipidemia October 20, 2024 9:19am Chief Complaint Admit Date chest pain September 19, 2024 12: 26pm Lung Mass September 22, 2024 7: 59am R06.02 - Shortness of breath September 8:59am new 5 cm lung mass LLL September 28, 2024 7:20am ABNORMAL LABS, CHEST PAIN, SOB September 282024 3:20pm S/P [facility] 10/14October 20, 2024 9:19am L EMPYEMA, S/P VATS, PAF November 05, 2024 7:45am Atrial fibrillation November 05, 2024 8:25am Additional Source Comments (unrecognized sect ion and content) No Status Records FoundNo Status Records FoundNo Status Records FoundNo Status Records FoundNo Status Records FoundNo Status Records FoundNo Status Records FoundNo Status Records FoundNo Status Records Found INFORMATION SOURCE (unrecogn ized section and content) DATE CREATED AUTHOR 06/22/2018 [facility] DATE CREATED AUTHOR AUTHOR'S ORGANIZ ATION 03/18/2019 [facility] DATE CREATED AUTHOR AUTHOR'S ORGANIZ ATION 12/23/2019 [facility] DATE CREATED AUTHOR AUTHOR'S ORGANIZ ATION 12/27/2019 [facility] DATE CREATED AUTHOR AUTHOR'S ORGANIZ ATION 07/14/2021 [facility] DATE CREATED AUTHOR AUTHOR'S ORGANIZ ATION 07/24/2024 [facility] DATE CREATED AUTHOR AUTHOR'S ORGANIZ ATION 11/22/2024 [facility] DATE CREATED AUTHOR AUTHOR'S ORGANIZ ATION 12/06/2024 [facility] DATE CREATED AUTHOR AUTHOR'S ORGANIZ ATION 12/20/2024 [facility] Reason for Visit (unrecogniz ed section and content) Reason Comments Consult to repair hiatal her santos Status Reason Specialty Diagnoses / Procedures Referred By Contact Referred To Contact Closed General Surgery Diagnoses Magallon's esophagus with dysplasia Large hiatal hernia Arabella Oden, DO [address] [place] [address] Abbe Wood MD [address] [facility] [address] [place] [address] Status Reason Specialty Diagnoses / Procedures Re ferred By Contact Referred To Contact Diagnoses 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] Procedures UT LAP, REPAIR PARAESOPHAGEAL HERNIA, INCL FUNDOPLASTY W/O MESH UT LAPS ESOPHGL SPHNCTR AGMNTJ PLMT DEV CRRPL UT PROSTHETIC IMPLANT NOS Abbe Wood MD [address] [facility] [address] [place] [address] Reason Comments Follow-up hiatal hernia repair with Santos fundoplication Reason Comments EGD Reason Comments Follow-up Reason Comments Follow-up RFA Reason Comments Follow-up EGD with RFA Reason Comments Follow-up Redo hiatal hernia r epair with santos Reason Comments Follow-up 4 week hiatal hernia repair check Reason Comments Medication Refill Reason Comments Follow-up Magallon's esophagus Reason Comments Follow-up Long-segment Magallon 's esophagus Reason Comments Follow-up Long segment Magallon 's esophagus, RFA Reason Comments Follow-up ESOPHAGOSCOPY WITH R FA Reason Comments New Patient Reason Comments Follow-up C/o finger peeling Reason Comments New Patient Abbe Wood MD - 04/04/2020 10:32 AM LAURENTMarAbbe cabello MD - 04/04/2020 10:30 AM EST H&P Notes (unrecognized sect ion and content) INTERVAL HISTORY AND PHYSICAL Patient Name: Maxx Forde Admit Date: [id number] MR #: [id number] : 1950 The H&P has been reviewed and the patient has been examined. I concur with the findings of the H&P. There are no significant changes. It is appropriate to proceed with the planned procedure. Abbe Wood MD 04/04/2020 10:32 AM Maxx Forde is a 70 y.o. male being [...] a EGD at that time that showed Magallon's esophagus and a hiatal hernia. He states [...] a large paraesophageal hernia and long segment Magallon's. Biopsies were taken that showed 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. Frequency of Symptoms: Symptoms more often with trigger foods Severity of Symptoms: increasing in severity Sleep Disruption: yes Aggravating Factors: fatty or greasy foods, large meal, late meal and garlic Alleviating Factors: PPI Medications Tried: Protonix HRQL SCORE: 27 Past Medical History: Diagnosis Date Magallon's esophagus 2017 Ceiclle Hypercholesteremia Hypertension Past Surgical History: Procedure Laterality Date ABDOMINAL HERNIA REPAIR 02/26/2014 ESOPHAGOGASTRODUODENOSCOPY 11/25/2017 Magallon's esophagus.....Cecille ESOPHAGOGASTRODUODENOSCOPY 12/21/2019 Cecille HERNIA REPAIR Right 1998 Inguinal with mesh No Known Allergies Current Facility-Administered Medications Medication Dose Route Frequency Provider Last Rate Last Admin cefoTEtan (CEFOTAN) 2000 mg in sodium chloride (NS) 0.9% 50 mL (vialmate) 2,000 mg Intravenous Once Cindi Ochoa CNP lactated Ringers infusion 125 mL/hr Intravenous Continuous Cindi Ochoa CNP 125 mL/hr at 04/04/20 0916 [...] EGD to assess the extent of his Magallon's esophagus. We will then proceed with a robotic assisted laparoscopic hiatal hernia repair with mesh and either LINX sphincter augmentation or Santos fundoplication depending upon the extent of Magallon's esophagus. Risk, benefits, and alternatives were discussed [...] Codes: * Paraesophageal hiatal hernia [K44.9] * Magallon's esophagus [K22.70] Post-operative Diagnosis: same Surgeon: Abbe Wood Reinforced Ironworker: Cindi Ochoa CNP The GLASSIE was present for the entire case and provided critical assistance with the technical aspects of the operation. Procedure and Anesthesia: Procedure(s) and Anesthesia Type: * REPAIR HERNIA HIATAL WITH MESH AND SANTOS FUNDOPLICATION ROBOTIC XI - General * ESOPHAGOGASTRODUODENOSCOPY - General CPT Code: 20826, 70399 EBL 25 ml Complications:None Drains: None Dispo: PACU Indication: This is a 70-year-old male who was referred to my practice for evaluation of a large type III paraesophageal hiatal hernia. He had an EGD which confirmed a hiatal hernia and reportedly showed long segment Magallon's. The patient had an esophagram which showed [...] in probation. Briefly, the esophagus had visible Magallon's esophagus with a [place] classification of C6 M6. The top of the gastric fold was identified at 34 cm and the proximalmost extent of visible Magallon's was at 28 cm. There there were no suspicious lesions or evidence of nodular Magallon's. NBI was used to assess for any [...] deflated to 10 mL and removed. The [place] was removed from around the esophagus. The [...] Care Teams (unrecognized sec tion and content) Soap Tender Relationship Specialty Start Date End Date Dago Mcnamara MD [address] [place] [address] PCP - General Family Medicine 12/30/19 Dago Mcnamara MD [address] [place] [address] Referring Physician Family Medicine 12/30/19 Soap Tender Relationship Specialty Start Date End Date Dago Mcnamara MD [address] [place] [address] PCP - General Family Medicine 12/30/19 Dago Mcnamara MD [address] [place] [address] Referring Physician Family Medicine 12/30/19 Soap Tender Relationship Specialty Start Date End Date Dago Mcnamara MD [address] [place] [address] PCP - General Family Medicine 12/30/19 Dago Mcnamara MD [address] [place] [address] Referring Physician Family Medicine 12/30/19 Soap Tender Relationship Specialty Start Date End Date Dago Mcnamara MD [address] [place] [address] PCP - General Family Medicine 12/30/19 Dago Mcnamara MD [address] [place] [address] Referring Physician Family Medicine 12/30/19 Soap Tender Relationship Specialty Start Date End Date Dago Mcnamara MD [address] [place] [address] PCP - General Family Medicine 12/30/19 Dago Mcnamara MD [address] [place] [address] Referring Physician Family Medicine 12/30/19 Soap Tender Relationship Specialty Start Date End Date Dago Mcnamara MD [address] [place] [address] PCP - General Family Medicine 12/30/19 Dago Mcnamara MD [address] [place] [address] Referring Physician Family Medicine 12/30/19 Soap Tender Relationship Specialty Start Date End Date Dago Mcnamara MD [address] [place] [address] PCP - General Family Medicine 12/30/19 Dago Mcnamara MD [address] [place] [address] Referring Physician Family Medicine 12/30/19 Soap Tender Relationship Specialty Start Date End Date Dago Mcnamara MD [address] [place] [address] PCP - General Family Medicine 12/30/19 Dago Mcnamara MD [address] [place] [address] Referring Physician Family Medicine 12/30/19 Soap Tender Relationship Specialty Start Date End Date Dago Mcnamara MD [address] [place] [address] PCP - General Family Medicine 12/30/19 Dago Mcnamara MD [address] [place] [address] Referring Physician Family Medicine 12/30/19 Soap Tender Relationship Specialty Start Date End Date Dago Mcnamara MD [address] [place] [address] PCP - General Family Medicine 12/30/19 Dago Mcnamara MD [address] [place] [address] Referring Physician Family Medicine 12/30/19 Soap Tender Relationship Specialty Start Date End Date Dago Mcnamara MD [address] [place] [address] PCP - General Family Medicine 12/30/19 Dago Mcnamara MD [address] [place] [address] Referring Physician Family Medicine 12/30/19 Soap Tender Relationship Specialty Start Date End Date Dago Mcnamara MD [address] [place] [address] PCP - General Family Medicine 12/30/19 Dago Mcnamara MD [address] [place] [address] Referring Physician Family Medicine 12/30/19 Soap Tender Relationship Specialty Start Date End Date Dago Mcnamara MD [address] [place] [address] PCP - General Family Medicine 12/30/19 Dago Mcnamara MD [address] [place] [address] Referring Physician Family Medicine 12/30/19 Soap Tender Relationship Specialty Start Date End Date Dago Mcnamara MD [address] [place] [address] PCP - General Family Medicine 12/30/19 Dago Mcnamara MD [address] [place] [address] Referring Physician Family Medicine 12/30/19 Team Status: Active Member Role Status Dates Dr. Dago Mcnamara MD Family Provider Active Dr. Emanuel Garland , Primary Care Provider Active Team Status: Inactive Member Role Status Dates Dr. Emanuel Garland , DO Primary Care Provider, Attendin g Provider Active Soap Tender Relationship Specialty Start Date End Date Dago Mcnamara MD [address] [place] [address] PCP - General Family Medicine 12/30/19 Dago Mcnamara MD [address] [place] [address] Referring Physician Family Medicine 12/30/19 Soap Tender Relationship Specialty Start Date End Date Dago Mcnamara MD [address] [place] [address] PCP - General Family Medicine 12/30/19 Dago Mcnamara MD [address] [place] [address] Referring Physician Family Medicine 12/30/19 Soap Tender Relationship Specialty Start Date End Date Dago Mcnamara MD [address] [place] [address] PCP - General Family Medicine 12/30/19 Dago Mcnamara MD [address] [place] [address] Referring Physician Family Medicine 12/30/19 Soap Tender Relationship Specialty Start Date End Date Dago Mcnamara MD [address] [place] [address] PCP - General Family Medicine 12/30/19 Dago Mcnamara MD [address] [place] [address] Referring Physician Family Medicine 12/30/19 Soap Tender Relationship Specialty Start Date End Date Dago Mcnamara MD [address] [place] [address] PCP - General Family Medicine 12/30/19 Dago Mcnamara MD [address] [place] [address] Referring Physician Family Medicine 12/30/19 Soap Tender Relationship Specialty Start Date End Date Dago Mcnamara MD [address] [place] [address] PCP - General Family Medicine 12/30/19 Dago Mcnamara MD [address] [place] [address] Referring Physician Family Medicine 12/30/19 Soap Tender Relationship Specialty Start Date End Date Emanuel Garland DO [address] [place] [address] PCP - General Family Medicine 06/16/24 Dago Mcnamara MD [address] [place] [address] Referring Physician Family Medicine 12/30/19 Team Status: Active Member Role/Relationship Status Dates Dr. Emanuel Garland DO Primary Care Provider Active Team Status: Inactive Member Role/Relationship Status Dates Dr. Emanuel Garland DO Primary Care Provider Active Start: September 19, 2024 End: September 19, 2024 Dr. Candido Rivera MD Emergency Provider Active S tart: September 19, 2024 End: September 19, 2024 Team Status: Inactive Member Role/Relationship Status Dates Dr. Emanuel Garland DO Primary Care Provider Active Start: September 22, 2024 End: September 22, 2024 Dr. Emanuel Garland DO Referring Provider Active Start: September 22, 2024 End: September 22, 2024 Adriana Lipscomb SHEAR GRINDER OPERATOR HELPER, SHEAR GRINDER OPERATOR HELPER-C Attending Provider Active Start: September 22, 2024 End: September 22, 2024 Team Status: Inactive Member Role/Relationship Status Dates Dr. Emanuel Garland DO Primary Care Provider Active Start: September 19, 2024 End: September 19, 2024 Dr. Candido Rivera MD Attending Provider Active S tart: September 19, 2024 End: September 19, 2024 Dr. Candido Rivera MD Emergency Provider Active S tart: September 19, 2024 End: September 19, 2024 Team Status: Active Member Role/Relationship Status Dates Dr. Emanuel Garland DO Primary Care Provider Active Start: September 22, 2024 Adriana Lipscomb SHEAR GRINDER OPERATOR HELPER, SHEAR GRINDER OPERATOR HELPER-C Attending Provider Active Start: September 22, 2024 Adriana Lipscomb SHEAR GRINDER OPERATOR HELPER, SHEAR GRINDER OPERATOR HELPER-C Referring Provider Active Start: September 22, 2024 Team Status: Active Member Role/Relationship Status Dates Dr. Emanuel Garland DO Primary Care Provider Active Start: September 28, 2024 Adriana Lipscomb SHEAR GRINDER OPERATOR HELPER, SHEAR GRINDER OPERATOR HELPER-C Attending Provider Active Start: September 28, 2024 Adriana Lipscomb SHEAR GRINDER OPERATOR HELPER, SHEAR GRINDER OPERATOR HELPER-C Referring Provider Active Start: September 28, 2024 Team Status: Inactive Member Role/Relationship Status Dates Dr. Emanuel Garland DO Primary Care Provider Active Start: September 28, 2024 End: September 29, 2024 Dr. Zack Turner DO Emergency Provider Active Start : September 28, 2024 End: September 29, 2024 Team Status: Inactive Member Role/Relationship Status Dates Dr. Emanuel Garland DO Primary Care Provider Active Start: September 22, 2024 End: September 22, 2024 Adriana Lipscomb SHEAR GRINDER OPERATOR HELPER, SHEAR GRINDER OPERATOR HELPER-C Attending Provider Active Start: September 22, 2024 End: September 22, 2024 Adriana Lipscomb SHEAR GRINDER OPERATOR HELPER, SHEAR GRINDER OPERATOR HELPER-C Referring Provider Active Start: September 22, 2024 End: September 22, 2024 Team Status: Inactive Member Role/Relationship Status Dates Dr. Emanuel Garland DO Primary Care Provider Active Start: September 28, 2024 End: September 28, 2024 Adriana Lipscomb SHEAR GRINDER OPERATOR HELPER, SHEAR GRINDER OPERATOR HELPER-C Attending Provider Active Start: September 28, 2024 End: September 28, 2024 Adriana Lipscomb SHEAR GRINDER OPERATOR HELPER, SHEAR GRINDER OPERATOR HELPER-C Referring Provider Active Start: September 28, 2024 End: September 28, 2024 Soap Tender Relationship Specialty Start Date End Date Emanuel Garland DO [address] [place] [address] [place] [phone] PCP - General Family Medicine 09/30/24 [facility] [employer] [address] [place] [address] Pharmacist Infectious Disease 10/14/24 Lb Francois, [facility] Pharmacist Infectious Disease 10/14/24 Solitario Arguelles MD [address] [place] [phone] Infectious Disease Internal Medicine 10/14/24 Priscila Mathis, RN Registered Nurse Infectious Disease 10/14/24 Beatriz Castillo, sewing room supervisor 10/14/24 Soap Tender Relationship Specialty Start Date End Date Emanuel Garland DO [address] [facility] [place] [phone] PCP - General Family Medicine 09/30/24 [facility] [address] [place] [address] Pharmacist Infectious Disease 10/14/24 Lb Francois, [facility] Pharmacist Infectious Disease 10/14/24 Solitario Arguelles MD [address] [place] [phone] Infectious Disease Internal Medicine 10/14/24 Priscila Mathis, RN Registered Nurse Infectious Disease 10/14/24 Beatriz Castillo, sewing room supervisor 10/14/24 Soap Tender Relationship Specialty Start Date End Date Emnauel Garland DO [address] [place] [address] [place] [phone] PCP - General Family Medicine 09/30/24 Lauren Alfaro, [facility] [address] [place] [address] Pharmacist Infectious Disease 10/14/24 Lb Francois, [facility] Pharmacist Infectious Disease 10/14/24 Solitario Arguelles MD [address] [place] [phone] Infectious Disease Infectious Disease 10/14/24 Priscila Mathis, RN Registered Nurse Infectious Disease 10/14/24 Beatriz Castillo, sewing room supervisor 10/14/24 11/13/24 Team Status: Inactive Member Role/Relationship Status Dates Dr. Emanuel Garland DO Primary Care Provider Active Start: September 28, 2024 End: September 29, 2024 Dr. Zack Turner DO Attending Provider Active Start : September 28, 2024 End: September 29, 2024 Dr. Zack Turner DO Emergency Provider Active Start : September 28, 2024 End: September 29, 2024 Team Status: Active Member Role/Relationship Status Dates Dr. Emanuel Garland DO Primary Care Provider Active Start: October 16, 2024 Dr. Emanuel Garland DO Attending Provider Active Start: October 16, 2024 Dr. Daniel Garland MD Referring Provider Active Start: October 16, 2024 Team Status: Inactive Member Role/Relationship Status Dates Dr. Emanuel Garland DO Primary Care Provider Active Start: October 20, 2024 End: October 20, 2024 Dr. Emanuel Garland DO Referring Provider Active Start: October 20, 2024 End: October 20, 2024 NICOLE Bahena Attending Provider Active St art: October 20, 2024 End: October 20, 2024 Team Status: Inactive Member Role/Relationship Status Dates Dr. Emanuel Garland DO Primary Care Provider Active Start: October 16, 2024 End: October 16, 2024 Dr. Emanuel Garland DO Attending Provider Active Start: October 16, 2024 End: October 16, 2024 Dr. Daniel Garland MD Referring Provider Active Start: October 16, 2024 End: October 16, 2024 Soap Tender Relationship Specialty Start Date End Date Emanuel Garland DO [address] [facility] [place] [address] PCP - General Family Medicine 09/30/24 [facility] [address] [place] [phone] Pharmacist Infectious Disease 10/14/24 Lb Francois, [facility] Pharmacist Infectious Disease 10/14/24 Solitario Arguelles MD [address] [place] [phone] Infectious Disease Infectious Disease 10/14/24 Priscila Mathis, RN Registered Nurse Infectious Disease 10/14/24 Beatriz Castillo, sewing room supervisor 10/14/24 11/13/24 Soap Tender Relationship Specialty Start Date End Date Emanuel Garland DO [address] [facility] [place] [address] PCP - General Family Medicine 09/30/24 [facility] [address] [place] [address] Pharmacist Infectious Disease 10/14/24 Lb Francois, [facility] Pharmacist Infectious Disease 10/14/24 Solitario Arguelles MD [address] [facility] [address] [place] [address] Infectious Disease Infectious Disease 10/14/24 Priscila Mathis, RN Registered Nurse Infectious Disease 10/14/24 Beatriz Castillo, sewing room supervisor 10/14/24 11/13/24 Team Status: Active Member Role/Relationship Status Dates Dr. Emanuel Garland DO Primary care physician Active Team Status: Inactive Member Role/Relationship Status Dates Dr. Emanuel Garland DO Primary care physician Active Start: September 19, 2024 End: September 19, 2024 Dr. Candido Rivera MD Attending physician Active Start: September 19, 2024 End: September 19, 2024 Dr. Candido Rivera MD Emergency Department Physician Ac tive Start: September 19, 2024 End: September 19, 2024 Team Status: Inactive Member Role/Relationship Status Dates Dr. Emanuel Garland DO Primary care physician Active Start: September 22, 2024 End: September 22, 2024 Dr. Emanuel Garland DO Referring Provider Active Start: September 22, 2024 End: September 22, 2024 Adriana Lipscomb SHEAR GRINDER OPERATOR HELPER, SHEAR GRINDER OPERATOR HELPER-C Attending physician Active Start: September 22, 2024 End: September 22, 2024 Team Status: Inactive Member Role/Relationship Status Dates Dr. Emanuel Garland DO Primary care physician Active Start: September 22, 2024 End: September 22, 2024 Adriana Lipscomb SHEAR GRINDER OPERATOR HELPER, SHEAR GRINDER OPERATOR HELPER-C Attending physician Active Start: September 22, 2024 End: September 22, 2024 Adriana Lipscomb SHEAR GRINDER OPERATOR HELPER, SHEAR GRINDER OPERATOR HELPER-C Referring Provider Active Start: September 22, 2024 End: September 22, 2024 Team Status: Inactive Member Role/Relationship Status Dates Dr. Emanuel Garland DO Primary care physician Active Start: September 28, 2024 End: September 28, 2024 Adriana Lipscomb SHEAR GRINDER OPERATOR HELPER, SHEAR GRINDER OPERATOR HELPER-C Attending physician Active Start: September 28, 2024 End: September 28, 2024 Adriana Lipscomb SHEAR GRINDER OPERATOR HELPER, SHEAR GRINDER OPERATOR HELPER-C Referring Provider Active Start: September 28, 2024 End: September 28, 2024 Team Status: Inactive Member Role/Relationship Status Dates Dr. Emanuel Garland DO Primary care physician Active Start: September 28, 2024 End: September 29, 2024 Dr. Zack Turner DO Attending physician Active Star t: September 28, 2024 End: September 29, 2024 Dr. Zack Turner DO Emergency Department Physician Active Start: September 28, 2024 End: September 29, 2024 Team Status: Inactive Member Role/Relationship Status Dates Dr. Emanuel Garland DO Primary care physician Active Start: October 16, 2024 End: October 16, 2024 Dr. Emanuel Garland DO Attending physician Active Start: October 16, 2024 End: October 16, 2024 Dr. Daniel Garland MD Referring Provider Active Start: October 16, 2024 End: October 16, 2024 Team Status: Inactive Member Role/Relationship Status Dates Dr. Emanuel Garland DO Primary care physician Active Start: October 20, 2024 End: October 20, 2024 Dr. Emanuel Garland DO Referring Provider Active Start: October 20, 2024 End: October 20, 2024 NICOLE Bahena Attending physician Active S tart: October 20, 2024 End: October 20, 2024 Team Status: Active Member Role/Relationship Status Dates Dr. Emanuel Garland DO Primary care physician Active Start: October 22, 2024 Dr. Emanuel Garland DO Attending physician Active Start: October 22, 2024 Dr. Emanuel Garland DO Referring Provider Active Start: October 22, 2024 Team Status: Inactive Member Role/Relationship Status Dates Dr. Emanuel Garland DO Primary care physician Active Start: November 05, 2024 End: November 05, 2024 DONNA BAUTISTA Attending physician Active Start: November 05, 2024 End: November 05, 2024 DONNA BAUTISTA Referring Provider Active Start: S [id number] End: November 05, 2024 NICOLE Bahena Nurse Practitioner Active St art: November 05, 2024 End: November 05, 2024 Team Status: Active Member Role/Relationship Status Dates Dr. Emanuel Garland DO Primary care physician Active Start: November 05, 2024 Dr. Arnaud Morrow MD Attending physician Active Start: November 05, 2024 NICOLE Bahena Referring Provider Active St art: November 05, 2024 Soap Tender Relationship Specialty Start Date End Date Emanuel Garland DO [address] [place] [address] PCP - General Family Medicine 06/16/24 Dago Mcnamara MD [address] [place] [address] Referring Physician Family Medicine 12/30/19 Goals (unrecognized [...] may be documented in an alternate section Scheduled Active and Recently Administ ered Medications (unrecognized section and content) Medication Order 10/12/2024 10/13/2024 10/14/2024 Acetaminophen (TYLENOL) tablet 975 mg 975 mg, Oral, EVERY 8 HOURS (0800/1600/2200), First dose on Sat09/30/24 at 1630, Until Discontinued, Maximum dose of acetaminophen is 4000 mg from all sources in 24 hours., Post-op/Post-Proc 0828 (Not Given - Provider: Ar Curran RN - Reason: Patient/family refused)1645 (Given - Provider: Ar Curran RN)2048 (Given - Provider: Nickie Barrientos RN) 0921 (Not Given - Provider: Nubia Pinzon RN - Reason: Patient/family refused)161 (Not Given - Provider: Nubia Pinzon RN - Reason: Patient/family refused)2121 (Given - Provider: Malaika Coates RN) 0822 (Not Given - Provider: Sheryl Salgado RN - Reason: Patient/family refused) amLODIPine (NORVASC) tablet 10 mg 10 mg, Oral, DAILY, First dose on Sat09/30/24 at 0900, Until Discontinued, On hold since Sat10/02/2024 at 1423 until manually unheld 0900 (Automatically Held) 0900 (Automatically Held) 0900 (Automatically Held)1404 (Unheld by provider - Provider: System Discharge) ammonium lactate (LAC-HYDRIN) 12 % lotion 1 Application 1 Application, Topical, DAILY, First dose on Sat09/30/24 at 0900, Until Discontinued, Apply to feet/lower legs 0831 (Given - Provider: Ar Curran RN) 1100 (Given - Provider: Nubia Pinzon RN) 0822 (Not Given - Provider: Sheryl Salgado RN - Reason: Patient/family refused) Ampicillin-Sulbactam Sodium (UNASYN) 3 g in sodium chloride 0.9% (MB PLUS) 100 mL (total volume) IVPB 3 g, Intravenous, Administer over 30 Minutes, EVERY 6 HOURS NON-STANDARD, First dose on Sat10/05/24 at 1700, Until Discontinued, Contains a penicillin. 0332 ($$New Bag$$ - Provider: Yulia Bai RN)0402 (Stopped - Provider: Yulia Bai RN)0835 ($$New Bag$$ - Provider: Ar Curran RN)1653 ($$New Bag$$ - Provider: Ar Curran RN - Comment: iv infiltrated)1725 (Stopped - Provider: Nubia Pinzon RN)2052 ($$New Bag$$ - Provider: Nickie Barrientos RN)2125 (Stopped - Provider: Nubia Pinzon RN) 0221 ($$New Bag$$ - Provider: Malaika Coates, ARIANE)0251 (Stopped - Provider: Nubia Pinzon RN)0251 (Stopped - Provider: Nubia Pinzon RN)0300 (Stopped - Provider: Malaika Coates RN)0940 ($$New Bag$$ - Provider: Nubia Pinzon RN)0950 (Paused - Provider: Nubia Pinzon RN)0955 (Restarted - Provider: Nubia Pinzon RN)1016 (Paused - Provider: Nubia Pinzon RN)1023 (Restarted - Provider: Nubia Pinzon RN)1053 (Stopped - Provider: Nubia Pinzon RN)1452 ($$New Bag$$ - Provider: Nubia Pinzon RN)1458 (Paused - Provider: Sheryl Salgado RN)1503 (Restarted - Provider: Sheryl Salgado RN)2120 ($$New Bag$$ - Provider: Malaika Coates RN)2150 (Stopped - Provider: Malaika Coates RN) 0137 ($$New Bag$$ - Provider: Melisa Steven RN)0200 (Stopped - Provider: Melisa Steven RN)0853 ($$New Bag$$ - Provider: Sheryl Salgado RN)0858 (Rate/Dose Verify - Provider: Sheryl Salgado RN)0926 (Stopped - Provider: Sheryl Salgado RN)1400 (Canceled Entry - Provider: System Discharge - Comment: Automatically canceled at discontinue of medication order) apixaban (ELIQUIS) tablet 5 mg 5 mg, Oral, EVERY 12 HOURS, First dose on Sat10/10/24 at 0900, Until Discontinued, Due to the rapid onset of action of apixaban, no overlap is needed with other anticoagulants (e.g. enoxaparin, heparin)., Indications: Atrial Fibrillation 0831 (Given - Provider: Ar Curran RN)2048 (Given - Provider: Nickie Barrientos RN) 09 (Given - Provider: Nubia Pinzon RN)212 (Given - Provider: Malaika Coates RN) 0820 (Given - Provider: Sheryl Salgado RN) Atorvastatin (LIPITOR) tablet 10 mg 10 mg, Oral, DAILY, First dose on Sat09/30/24 at 0900, Until Discontinued 08 (Given - Provider: Ar Curran RN) 09 (Given - Provider: Nubia Pinzon RN) 0821 (Given - Provider: Sheryl Salgado RN) Ezetimibe (ZETIA) 10 mg 10 mg, Oral, DAILY, First dose on Sat09/30/24 at 0900, Until Discontinued 08 (Given - Provider: Ar Curran RN)0831 (Canceled Entry - Provider: Ar Curran RN) 0919 (Given - Provider: Nubia Pinzon, ARIANE) 0821 (Given - Provider: Sheryl Salgado, ARIANE) furOSEmide (LASIX) injection 80 mg 80 mg, Intravenous, 2 TIMES DAILY BEFORE MEALS, First dose (after last modification) on Sat10/09/24 at 1600, Until Discontinued, Administer by slow IV push at a rate not exceeding 40mg/min 0827 (Given - Provider: Ar Curran RN)1643 (Given - Provider: Ar Curran RN) 0918 (Given - Provider: Nubia Pinzon, RN)1613 (Given - Provider: Nubia Pinzon, RN) 0821 (Given - Provider: Sheryl Salgado, ARIANE) guaiFENesin (MUCINEX) tablet SR 600 mg 600 mg, Oral, EVERY 12 HOURS, First dose on Sat10/06/24 at 2330, Until Discontinued, Do not crush, chew, or break. 0828 (Given - Provider: Ar Curran RN)0831 (Canceled Entry - Provider: Ar Curran RN)7 (Given - Provider: Nickie Barrientos, ARIANE) 0919 (Given - Provider: Nubia Pinzon RN)2123 (Not Given - Provider: Malaika Coates RN - Reason: Patient/family refused) 0822 (Not Given - Provider: Sheryl Salgado RN - Reason: Patient/family refused) Ipratropium-albuterol (DUONEB) 0.5-2.5 (3) MG/3ML nebulizer solution 3 mL 3 mL, Nebulization, EVERY 6 HOURS NON-STANDARD, First dose on Sat10/06/24 at 2130, Until Discontinued 022 (Not Given - Provider: Nacho Gambino RCP - Reason: Patient/family refused)08 (Given - Provider: Laurence Michel RCP)1354 (Not Given - Provider: Laurence Michel RCP - Reason: Patient not available)2016 (Given - Provider: Vy Trejo RCP) 0207 (Not Given - Provider: Vy Trejo RCP - Reason: Patient/family refused - Comment: requested to sleep)1028 (Not Given - Provider: Laurence Michel RCP - Reason: RT not available)1325 (Not Given - Provider: GUSTABO MelendezP - Reason: Patient/family refused)2033 (Given - Provider: Abraham Seymour [employer] Permit Delgado) 0101 (Not Given - Provider: Abraham Seymour [employer] Permit Delgado - Reason: Patient/family refused - Comment: requested to sleep)0740 (Given - Provider: Ethan Engle RCP)1400 (Canceled Entry - Provider: System Discharge - Comment: Automatically canceled at discontinue of medication order) lidocaine 4 % patch 1 patch 1 patch, Transdermal, Administer over 12 Hours, EVERY 24 HOURS, First dose on Sat09/30/24 at 1700, Until Discontinued, Apply to area posterior and lateral to chest tube insertion site. Alternatively, apply to patient desired location., Post-op/Post-Proc 1646 (Not Given - Provider: Ar Curran RN - Reason: Patient/family refused) 1612 (Not Given - Provider: Nubia Pinzon RN - Reason: Patient/family refused) Methocarbamol (ROBAXIN) tablet 500 mg 500 mg, Oral, 4 TIMES DAILY, First dose on Sat10/07/24 at 0900, Until Discontinued, Post-op/Post-Proc 0828 (Given - Provider: Ar Curran RN)1309 (Given - Provider: Ar Curran, ARIANE)1645 (Given - Provider: Ar Curran RN)2047 (Given - Provider: Nickie Barrientos, ARIANE) 0919 (Not Given - Provider: Nubia Pinzon RN - Reason: Patient/family refused)1251 (Not Given - Provider: Nubia Pinzon RN - Reason: Patient/family refused)1612 (Not Given - Provider: Nubia Pinzon RN - Reason: Patient/family refused)2125 (Not Given - Provider: Malaika Coates RN - Reason: Patient/family refused) 0821 (Not Given - Provider: Sheryl Salgado RN - Reason: Patient/family refused)1300 (Canceled Entry - Provider: System Discharge - Comment: Automatically canceled at discontinue of medication order) Metoprolol (LOPRESSOR) tablet 25 mg 25 mg, Oral, EVERY 12 HOURS, First dose on Sat09/30/24 at 2100, Until Discontinued, Hold for systolic blood pressure less than 100 mm Hg or heart rate less than 50/minute 08 (Given - Provider: Ar Curran RN)2047 (Given - Provider: Nickie Barrientos RN) 09 (Given - Provider: Nubia Pinzon RN)2121 (Given - Provider: Malaika Coates, ARIANE) 08 (Given - Provider: Sheryl Salgado RN) Pantoprazole (PROTONIX) tablet DR 40 mg 40 mg, Oral, 2 TIMES DAILY, First dose on Sat09/29/24 at 1700, Until Discontinued, Swallow whole; do not crush or chew., Indications: Continuation of Home Therapy 08 (Given - Provider: Ar Curran RN)1644 (Given - Provider: Ar Curran RN) 09 (Given - Provider: Nubia Pinzon RN)161 (Given - Provider: Nubia Pinzon RN) 0820 (Given - Provider: Sheryl Salgado RN) Potassium chloride (K-DUR) tablet ER 40 mEq (COMPLETED) 40 mEq, Oral, ONCE, 1 dose, On Sat10/14/24 at 0900, Swallow tablets whole; do not crush, chew, or suck on tablet. Tablet may also be broken in half and each half swallowed separately. 08 (Given - Provider: Sheryl Salgado RN - Comment: MD smith PRN already given) Spironolactone (ALDACTONE) tablet 25 mg 25 mg, Oral, DAILY, First dose on Sat10/13/24 at 1630, Until Discontinued, Max 400 mg/day. Do not crush, split or chew at bedside (hazardous drug). Contact pharmacy if alternate route or dose is needed. 164 (Given - Provider: Nubia Pinzon RN) 0821 (Given - Provider: Sheryl Salgado RN) Sucralfate (CARAFATE) tablet 1 g 1 g, Oral, EVERY 6 HOURS, First dose on Sat09/29/24 at 1800, Until Discontinued, Avoid administration of other oral medications within 2 hours of sucralfate. 0000 (Canceled Entry - Provider: Yulia Bai RN - Comment: gave early due to patient request)0508 (Given - Provider: Yulia Bai RN)1309 (Given - Provider: Ar Curran RN)1645 (Given - Provider: Ar Curran RN) 0120 (Given - Provider: Malaika Coates RN)0503 (Given - Provider: Malaika Coates RN)1250 (Given - Provider: Nubia Pinzon, ARIANE)1851 (Given - Provider: Nubia Pinzon RN)2303 (Given - Provider: Malaika Coates RN) 0525 (Given - Provider: Melisa Steven RN)1200 (Canceled Entry - Provider: System Discharge - Comment: Automatically canceled at discontinue of medication order) Torsemide (DEMADEX) tablet 20 mg 20 mg, Oral, DAILY, First dose on Sat10/04/24 at 1230, Until Discontinued, Max: 200 mg/day, On hold since Sat10/08/2024 at 0720 until manually unheld 0900 (Automatically Held - Provider: Osito Salinas MD) 0900 (Automatically Held) 0900 (Automatically Held)1404 (Unheld by provider - Provider: System Discharge) PRN Medication Order 10/12/2024 10/13/2024 10/14/2024 Albuterol inhaler 1 puff 1 puff, Inhalation, EVERY 4 HOURS NEEDED, Starting on Sat09/29/24 at 1539, Until Sat10/14/24 at 1404, Shortness of Breath, Wait at least one(1) full minute between inhalations calcium carbonate antacid tablet 1,296 mg 1,296 mg (2 tablet), Oral, 4 TIMES DAILY NEEDED, Starting on Sat09/29/24 at 1442, Until Sat10/14/24 at 1404, Indigestion chlorproMAZINE (THORAZINE) tablet 25 mg 25 mg, Oral, EVERY 4 HOURS NEEDED, Starting on Sat10/04/24 at 0954, Until Sat10/14/24 at 1404, Hiccups guaiFENesin (ROBITUSSIN) oral solution 400 mg 400 mg, Oral, EVERY 6 HOURS NEEDED, Starting on Sat09/29/24 at 1442, Until Sat10/14/24 at 1404, Cough, Congestion HYDROmorphone (DILAUDID) injection 0.5 mg 0.5 mg, Intravenous, EVERY 3 HOURS NEEDED, Starting on Sat10/07/24 at 0953, Until Sat10/14/24 at 1404, Moderate/severe pain and unable to take enteral route magnesium oxide (MAG-OX) tablet 800 mg(Linked Group 1) 800 mg, Oral, ADMINISTER DIRECTED, Starting on 10/11/24 at 0815, Until Sat10/14/24 at 1404, See admin instructions, Cardiology Medicine Electrolyte Replacement Protocol, Administer for magnesium level of 1.6-1.9 mg/dL. NOT APPROPRIATE for Dialysis Patients, those with CrCl less than 30 mL/min, weight less than 50 kg; or for history of renal transplant. Draw magnesium level with next day morning labs. 0509 (Given - Provider: Yulia Bai RN) 0503 (Given - Provider: Malaika Coates, ARIANE) magnesium oxide (MAG-OX) tablet 800 mg(Linked Group 1) 800 mg, Per NG tube, ADMINISTER DIRECTED, Starting on Sat10/11/24 at 0815, Until Sat10/14/24 at 1404, See admin instructions, Cardiology Medicine Electrolyte Replacement Protocol, Administer for magnesium level of 1.6-1.9 mg/dL. NOT APPROPRIATE for Dialysis Patients, those with CrCl less than 30 mL/min, weight less than 50 kg; or for history of renal transplant. Draw magnesium level with next day morning labs. 0509 (See Alternative - Provider: Yulia Bai RN) 0503 (See Alternative - Provider: Malaika Coates, ARIANE) Magnesium sulfate 4 g in sterile water 50 ml premix IVPB(Linked Group 1) 4 g, Intravenous, Administer over 4 Hours, ADMINISTER DIRECTED, Starting on Sat10/11/24 at 0815, Until Sat10/14/24 at 1404, Other, Cardiology Medicine Electrolyte Replacement Protocol, Administer for Magnesium level less than or equal to 1.5 mg/dL. NOT APPROPRIATE for Dialysis Patients, those with CrCl less than 30 mL/min, weight less than 50 kg; or for history of renal transplant. Repeat Magnesium level eight (8) hours after each infusion if most recent magnesium level is less than 1.3 mg/dL. Draw with next day morning labs after replacements for previous magnesium levels between 1.3-1.9 mg/dL. 0509 (See Alternative - Provider: Yulia Bai RN) 0503 (See Alternative - Provider: Malaika Coates RN) Melatonin tablet 6 mg 6 mg, Oral, DAILY AT BEDTIME NEEDED, Starting on Sat09/29/24 at 1442, Until Sat10/14/24 at 1404, Insomnia Ondansetron (ZOFRAN-ODT) disintegrating tablet 4 mg(Linked Group 2) 4 mg, Oral, EVERY 6 HOURS NEEDED, Starting on Sat09/29/24 at 1442, Until Sat10/14/24 at 1404, Nausea / Vomiting Ondansetron 4mg/2ml (ZOFRAN) injection 4 mg(Linked Group 2) 4 mg, Intravenous, EVERY 6 HOURS NEEDED, Starting on Sat09/29/24 at 1442, Until Sat10/14/24 at 1404, Nausea / Vomiting oxyCODONE (ROXICODONE) tablet 5 mg 5 mg, Oral, EVERY 4 HOURS NEEDED, Starting on Sat10/07/24 at 0424, Until Sat10/14/24 at 1404, Moderate Pain, Post-op/Post-Proc Potassium Bicarb-Citric Acid (Effer-K) 20 MEQ effervescent tablets for oral solution 40-60 mEq(Linked Group 3) 40-60 mEq, Per NG tube, ADMINISTER DIRECTED, Starting on Sat10/11/24 at 0815, Until Sat10/14/24 at 1404, Other, Cardiology Medicine Electrolyte Replacement Protocol, NOT APPROPRIATE for Dialysis Patients, those with CrCl less than 30 mL/min, weight less than 50 kg; or for history of renal transplant. Check magnesium level and administer magnesium prior to potassium replacement if indicated. For Potassium level less than 3 mmol/L administer 40 mEq every 4 hours x2 occurances. Recheck potassium level eight (8) hours after second dose administered. For Potassium level 3-3.5 mmol/L administer 60 mEq once. Recheck potassium level eight (8) hours after administration. For Potassium level 3.6-4.0 mmol/L administer 40 mEq once. Recheck potassium level with morning labs next day. Do not swallow whole. Dissolve completely in 3-4 ounces of water or cold juice before drinking. If administering via J tube, dilute in sterile water, wait for tablet to stop fizzing, swirl the solution and draw into a syringe suitable for attaching to the tube. After administration, flush tube with 15-30 ml water. 0508 (See Alternative - Provider: Yulia Bai RN) 0525 (See Alternative - Provider: Melisa Steven, ARIANE) Potassium chloride (K-DUR) tablet ER 40-60 mEq(Linked Group 3) 40-60 mEq, Oral, ADMINISTER DIRECTED, Starting on Sat10/11/24 at 0815, Until Sat10/14/24 at 1404, See admin instructions, Other, Cardiology Medicine Electrolyte Replacement Protocol, NOT APPROPRIATE for Dialysis Patients, those with CrCl less than 30 mL/min, weight less than 50 kg; or for history of renal transplant. Check magnesium level and administer magnesium prior to potassium replacement if indicated. For Potassium level less than 3 mmol/L administer 40 mEq every 4 hours x2 occurances. Recheck potassium level eight (8) hours after second dose administered. For Potassium level 3-3.5 mmol/L administer 60 mEq once. Recheck potassium level eight (8) hours after administration. For Potassium level 3.6-4.0 mmol/L administer 40 mEq once. Recheck potassium level with morning labs next day. 0508 (Given - Provider: Yulia Bai RN) 0525 (Given - Provider: Melisa Steven, ARIANE) Promethazine (PHENERGAN) suppository 25 mg(Linked Group 4) 25 mg, Rectal, EVERY 6 HOURS NEEDED, Starting on Sat09/29/24 at 1442, Until Sat10/14/24 at 1404, Refractory Nausea Vomiting, 2nd line for nausea/vomiting Promethazine (PHENERGAN) tablet 25 mg(Linked Group 4) 25 mg, Oral, EVERY 6 HOURS NEEDED, Starting on Sat09/29/24 at 1442, Until Sat10/14/24 at 1404, Refractory Nausea Vomiting, 2nd line for nausea/vomiting Senna (SENOKOT) tablet 17.2 mg 17.2 mg, Oral, EVERY 12 HOURS NEEDED, Starting on Sat10/03/24 at 1557, Until Sat10/14/24 at 1404, Constipation 1st Line Sodium chloride 0.9% IV solution 250 mL Intravenous, at 20 mL/hr, NEEDED, Starting on Sat09/29/24 at 1442, Until Sat10/14/24 at 1404, Carrier Fluid - See Admin. Inst, 250mL 0.9NS to be used as carrier fluid for intermittent small volume or piggyback medication administration as needed. Infusion rate of the carrier fluid should be set at 20 mL/hr unless the rate as the intermittent medication is less than 20 mL/hr. For intermittent medications with a rate less than 20 mL/hr set the carrier fluid at that rate of the intermittent or piggy back medication. 0934 ($$New Bag$$ - Provider: Nubia Pinzon RN)0940 (Paused - Provider: Nubia Pinzon RN)1016 (Restarted - Provider: Nubia Pinzon RN)1023 (Paused - Provider: Nubia Pinzon RN)1053 (Restarted - Provider: Nubia Pinzon RN)1056 (Stopped - Provider: Nuiba Pinzon RN)1446 (Restarted - Provider: Nubia Pinzon RN) 0139 (Not Given - Provider: Melisa Steven RN - Reason: Other)0651 (Not Given - Provider: Melisa Steven RN - Reason: Other)0848 ($$New Bag$$ - Provider: Sheryl Salgado RN)0853 (Paused - Provider: Sheryl Salgado RN)0926 (Restarted - Provider: Sheryl Salgado RN)1020 (Stopped - Provider: Sheryl Salgado RN) Sodium chloride 3 % inhalation solution 4 mL 4 mL, Nebulization, EVERY 6 HOURS NEEDED, Starting on Sat10/07/24 at 0900, Until Sat10/14/24 at 1404, Congestion Linked Groups Order Group 1: magnesium oxide (MAG-OX) tablet 800 mgJump to med 800 mg, Oral, ADMINISTER DIRECTED, Starting on 10/11/24 at 0815, Until Sat10/14/24 at 1404, See admin instructions, Cardiology Medicine Electrolyte Replacement Protocol, Administer for magnesium level of 1.6-1.9 mg/dL. NOT APPROPRIATE for Dialysis Patients, those with CrCl less than 30 mL/min, weight less than 50 kg; or for history of renal transplant. Draw magnesium level with next day morning labs. Or magnesium oxide (MAG-OX) tablet 800 mgJump to med 800 mg, Per NG tube, ADMINISTER DIRECTED, Starting on 10/11/24 at 0815, Until Sat10/14/24 at 1404, See admin instructions, Cardiology Medicine Electrolyte Replacement Protocol, Administer for magnesium level of 1.6-1.9 mg/dL. NOT APPROPRIATE for Dialysis Patients, those with CrCl less than 30 mL/min, weight less than 50 kg; or for history of renal transplant. Draw magnesium level with next day morning labs. Or Magnesium sulfate 4 g in sterile water 50 ml premix IVPBJump to med 4 g, Intravenous, Administer over 4 Hours, ADMINISTER DIRECTED, Starting on Sat10/11/24 at 0815, Until Sat10/14/24 at 1404, Other, Cardiology Medicine Electrolyte Replacement Protocol, Administer for Magnesium level less than or equal to 1.5 mg/dL. NOT APPROPRIATE for Dialysis Patients, those with CrCl less than 30 mL/min, weight less than 50 kg; or for history of renal transplant. Repeat Magnesium level eight (8) hours after each infusion if most recent magnesium level is less than 1.3 mg/dL. Draw with next day morning labs after replacements for previous magnesium levels between 1.3-1.9 mg/dL. Group 2: Ondansetron 4mg/2ml (ZOFRAN) injection 4 mgJump to med 4 mg, Intravenous, EVERY 6 HOURS NEEDED, Starting on Sat09/29/24 at 1442, Until Sat10/14/24 at 1404, Nausea / Vomiting Or Ondansetron (ZOFRAN-ODT) disintegrating tablet 4 mgJump to med 4 mg, Oral, EVERY 6 HOURS NEEDED, Starting on Sat09/29/24 at 1442, Until Sat10/14/24 at 1404, Nausea / Vomiting Group 3: Potassium chloride (K-DUR) tablet ER 40-60 mEqJump to med 40-60 mEq, Oral, ADMINISTER DIRECTED, Starting on Sat10/11/24 at 0815, Until Sat10/14/24 at 1404, See admin instructions, Other, Cardiology Medicine Electrolyte Replacement Protocol, NOT APPROPRIATE for Dialysis Patients, those with CrCl less than 30 mL/min, weight less than 50 kg; or for history of renal transplant. Check magnesium level and administer magnesium prior to potassium replacement if indicated. For Potassium level less than 3 mmol/L administer 40 mEq every 4 hours x2 occurances. Recheck potassium level eight (8) hours after second dose administered. For Potassium level 3-3.5 mmol/L administer 60 mEq once. Recheck potassium level eight (8) hours after administration. For Potassium level 3.6-4.0 mmol/L administer 40 mEq once. Recheck potassium level with morning labs next day. Or Potassium Bicarb-Citric Acid (Effer-K) 20 MEQ effervescent tablets for oral solution 40-60 mEqJump to med 40-60 mEq, Per NG tube, ADMINISTER DIRECTED, Starting on Sat10/11/24 at 0815, Until Sat10/14/24 at 1404, Other, Cardiology Medicine Electrolyte Replacement Protocol, NOT APPROPRIATE for Dialysis Patients, those with CrCl less than 30 mL/min, weight less than 50 kg; or for history of renal transplant. Check magnesium level and administer magnesium prior to potassium replacement if indicated. For Potassium level less than 3 mmol/L administer 40 mEq every 4 hours x2 occurances. Recheck potassium level eight (8) hours after second dose administered. For Potassium level 3-3.5 mmol/L administer 60 mEq once. Recheck potassium level eight (8) hours after administration. For Potassium level 3.6-4.0 mmol/L administer 40 mEq once. Recheck potassium level with morning labs next day. Do not swallow whole. Dissolve completely in 3-4 ounces of water or cold juice before drinking. If administering via J tube, dilute in sterile water, wait for tablet to stop fizzing, swirl the solution and draw into a syringe suitable for attaching to the tube. After administration, flush tube with 15-30 ml water. Group 4: Promethazine (PHENERGAN) tablet 25 mgJump to med 25 mg, Oral, EVERY 6 HOURS NEEDED, Starting on Sat09/29/24 at 1442, Until Sat10/14/24 at 1404, Refractory Nausea Vomiting, 2nd line for nausea/vomiting Or Promethazine (PHENERGAN) suppository 25 mgJump to med 25 mg, Rectal, EVERY 6 HOURS NEEDED, Starting on Sat09/29/24 at 1442, Until Sat10/14/24 at 1404, Refractory Nausea Vomiting, 2nd line for nausea/vomiting FOR RECORDS PERTAINING TO PATIENTS WHO ARE [...] BE BASED ON THE PRIMARY CLINICAL RECORDS. [facility] [employer] [facility]. provides no warranty or guarantee of the accuracy or completeness of information in this document.
[2024-12-21 08:59] LABS: Cholesterol 126 mg/dL (<=200); Low Density Lipoprotein Calc. 55 mg/dL; Triglycerides 64 mg/dL; Very Low Density Lipoprotein 13 mg/dL (5-40); cholesterol:hdl ratio screen 2.21
== END | disposition home or self-care (01) ==
LOC: LAB 06:34
PROVIDERS: PCP Family Medicine; Referring Provider Student in an Organized Health Care Education/Training Program; Visit Provider Student in an Organized Health Care Education/Training Program
DX: E78.5 Hyperlipidemia, unspecified (principal)
CPT/HCPCS: 36415; 80061

== ENCOUNTER → 2024-12-25 | Outpatient (CLI) | payer MEDICARE, OTHER, SELFPAY ==
--- NOTE | 2024-12-25 17:52 | STRESSREP ---
Stress Test Report Exercise myocardial perfusion stress test. 74-year-old male with a history of coronary calcifications. Stress protocol: Resting EKG demonstrates normal sinus rhythm with a rate of 63 bpm resting blood pressure is 132/70 mmHg. The patient exercised according to the regular Mervin protocol for a total duration of 6 minutes attaining a maximum heart rate of 150 bpm which was 102% of maximum predicted heart rate; the maximum workload was 7 metabolic equivalents. At rest there were no ST or T wave changes noted to suggest ischemia and at peak exercise upsloping ST changes only were noted which did not meet the criteria for ischemia. No clinical angina was noted the test was terminated due to the target heart rate being achieved/fatigue. The peak blood pressure was 182/84 mmHg. Rate-pressure product was 24,300. Myocardial perfusion protocol. 11.5 mCi of technetium 99m sestamibi was injected at rest. The patient exercised according to regular Mervin protocol for total duration of 6 minutes and at peak exercise 33.8 mCi of technetium 99m sestamibi was injected stress images were obtained stress and rest images were reconstructed in comparing the short axis vertical long and horizontal long axis. Gated images were also obtained. Perfusion SPECT analysis: Review of the stress images demonstrate normal uptake of tracer noted in all areas of the myocardium. The resting images similarly demonstrate normal uptake of tracer noted in all areas of the myocardium. No areas of reversibility are noted to suggest ischemia no previous infarct was noted. Gated SPECT analysis: The gated ejection fraction is 69%. Conclusion: Normal exercise myocardial perfusion stress test at a moderate workload.
== END | disposition home or self-care (01) ==
LOC: CVS 06:07
PROVIDERS: PCP Family Medicine; Referring Provider Student in an Organized Health Care Education/Training Program; Visit Provider Student in an Organized Health Care Education/Training Program
DX: R94.31 Abnormal electrocardiogram [ECG] [EKG] (principal); I25.84 Coronary atherosclerosis due to calcified coronary lesion
CPT/HCPCS: 78452; 93017; A9500; A4216

== ENCOUNTER → 2025-01-18 | Outpatient (CLI) | payer MEDICARE, OTHER, SELFPAY ==
--- NOTE | 2025-01-18 12:35 | CT_ITS ---
PROCEDURE: CHEST WITHOUT CONTRAST 01/18/2025 REASON FOR EXAM: F/U EMPYEMA/ PULMONARY ACTINOMYCES INFECTION TECHNIQUE: Chest CT without contrast. Coronal and Sagittal reconstruction series were provided. One or more dose reduction techniques were used (e.g., Automated exposure control, adjustment of the mA and/or kV according to patient size, use of iterative reconstruction technique RADIATION DOSE SUMMARY: CTDlvol: 11 mGy DLP: 419 mGycm COMPARISON: November 05, 2024 FINDINGS: Hardware: None Lymph nodes: None appear enlarged Heart and Vasculature: Heart is mildly enlarged. No pericardial effusion. Main pulmonary artery is 33 mm transverse. Coronary Artery Calcifications: Present Lungs and Airways: Local architectural distortion, parenchymal bands in the inferior lingula, superior segment left lower lobe and posterior segments left lower lobe. Minimal dependent atelectasis right lower lobe. No mass or consolidation seen. A cyst is present in the posterior right upper lobe. Pleura: No pleural effusion or pneumothorax Upper Abdomen: Water density cysts involving the left lobe liver partially imaged measuring 2.1 x 1.6 cm and 1.5 x 1.2 cm Bones: Mild degenerative change lower thoracic spine. CT/Chest without Contrast IMPRESSION: 1. No acute cardiopulmonary process. Scarring in the lingula and left lower l obe. Significant improvement in the atelectasis and pleural fluid. No significant fluid remains. 2. Mild cardiac enlargement. Coronary artery disease. Very mild enlargement of the main pulmonary artery. This can be normal but also can be associated with pulmonary arterial hypertension. 3. Benign cysts involving the left lobe liver. No follow-up required. Reading Location: [id number]
== END | disposition home or self-care (01) ==
LOC: CT 12:32
PROVIDERS: PCP Family Medicine
DX: A42.0 Pulmonary actinomycosis (principal); Z79.2 Long term (current) use of antibiotics
CPT/HCPCS: 71250